=== PATIENT | male | born 1960 | race Caucasian/White ===

== ENCOUNTER 2023-05-03 05:24 | Inpatient (IN) | payer MEDICARE, SELFPAY ==
[2023-05-03] VITALS (13 sets, daily range): BP systolic 143–177; BP diastolic 82–101; PULSE 82–106; RESP 14–20; TEMP 36.3–36.7; O2SAT 95–100; BMI 45.8
--- NOTE | ~2023-05-03 | CT_ITS ---
EXAMINATION: CT brain wo con DATE: 05/03/2023 06:49 INDICATION: Head injury. TECHNIQUE: Computed tomography (CT) of the head was performed without intravenous contrast. The mA wa s adjusted according to patient size. Iterative reconstruction technique was employed. The dose-lengt h product was 832.33 mGy-cm. COMPARISON: None FINDINGS: There is low attenuation involving the left frontotemporal parietal region, left insula, an d left thalamus with calcifications and volume loss. There are changes of left craniotomy. There is n o intracranial hemorrhage or acute infarction. There is ex vacuo dilatation of left lateral ventricle . The orbits are normal. There is mild mucosal thickening in the ethmoid sinuses. The mastoid air shirin ls are normal. IMPRESSION: 1. Low attenuation, calcifications, and volumes loss involving the left frontotemporal parietal regio n, left insula, and left thalamus, consistent with chronic encephalomalacia. Some component of neopla sm in this volume cannot be excluded. Correlate with outside imaging. Reviewed, dictated and finalized at location E. IMPRESSION: 1. Low attenuation, calcifications, and volumes loss involving the left frontot emporal parietal region, left insula, and left thalamus, consistent with chroni c encephalomalacia. Some component of neoplasm in this volume cannot be exclude d. Correlate with outside imaging.
--- NOTE | ~2023-05-03 | XR_ITS ---
EXAMINATION: XR hip RT 2V w AP pelvis DATE: 05/03/2023 06:58 INDICATION: Right hip injury. Fall. TECHNIQUE: An anteroposterior view of the pelvis and 2 views of right hip were obtained. COMPARISON: None. FINDINGS: There is a subcapital fracture of proximal right femur. The distal fracture fragment demons trates 2.7 cm shortening and anterior displacement. The hip joint spaces are normal. IMPRESSION: 1. Subcapital fracture of right femoral neck. Reviewed, dictated and finalized at location E.
--- NOTE | ~2023-05-03 | XR_ITS ---
EXAMINATION: XR tibia fibula RT 2V DATE: 05/03/2023 06:58 INDICATION: Right lower leg injury. TECHNIQUE: 2 views of right tibia and fibula on 4 radiographs were obtained. COMPARISON: None. FINDINGS: Bone alignment is normal. No fracture. There is mild osteoarthritis of medial compartment o f the knee. There is soft tissue swelling of the lower leg. IMPRESSION: 1. Mild right knee osteoarthritis. Reviewed, dictated and finalized at location E.
--- NOTE | ~2023-05-03 | XR_ITS ---
EXAMINATION: XR ankle RT 2V DATE: 05/03/2023 06:58 INDICATION: Right ankle injury. Fall. TECHNIQUE: 2 views of right ankle were obtained. COMPARISON: None. FINDINGS: Bone alignment is normal. No fracture. Joint spaces are normal. There is an enthesophyte at plantar aspect of calcaneal tuberosity. There is foot and lower leg soft tissue swelling. IMPRESSION: 1. No fracture. Reviewed, dictated and finalized at location E. IMPRESSION: 1. No fracture.
--- NOTE | ~2023-05-03 | CT_ITS ---
EXAMINATION: CT cervical spine wo con DATE: 05/03/2023 06:53 INDICATION: Head injury. TECHNIQUE: Computed tomography (CT) of the cervical spine was performed without intravenous contrast. Automated exposure control and iterative reconstruction technique were employed. The dose-length pro duct was 594.56 mGy-cm. COMPARISON: None FINDINGS: There is kyphosis of cervical spine. Vertebral body heights are normal. There is mildly dec reased disc height at C2-C3, severely decreased disc height from C3-C4 through C6-C7, and mildly decr eased disc height at C7-T1. The following disc levels are specifically discussed: C2-C3: There is mild right and moderate left uncovertebral joint osteoarthritis. There is severe bila teral facet joint osteoarthritis. There is mild left neural foraminal stenosis. There is no central c anal stenosis. C3-C4: There is severe bilateral uncovertebral joint osteoarthritis. There is severe left facet joint osteoarthritis. There is mild right and moderate left neural foraminal stenosis. There is mild centr al canal stenosis. C4-C5: There is severe bilateral uncovertebral joint osteoarthritis. There is moderate bilateral face t joint osteoarthritis. There is moderate bilateral neural foraminal stenosis. There is mild central canal stenosis. C5-C6: There is severe bilateral uncovertebral joint osteoarthritis. There is mild bilateral facet blayne int osteoarthritis. There is mild right and moderate left neural foraminal stenosis. There is no cent ral canal stenosis. C6-C7: There is severe bilateral uncovertebral joint osteoarthritis. There is moderate right and maria t re left facet joint osteoarthritis. There is moderate bilateral neural foraminal stenosis. There is m ild central canal stenosis. C7-T1: There is mild right uncovertebral joint osteoarthritis. There is severe bilateral facet joint osteoarthritis. There is no neural foraminal stenosis. There is no central canal stenosis. IMPRESSION: 1. No fracture. 2. Severe cervical spondylosis. Reviewed, dictated and finalized at location E.
--- NOTE | ~2023-05-03 | XR_ITS ---
EXAMINATION: XR chest 1V portable DATE: 05/03/2023 08:02 INDICATION: Chest pain. Fall. Preop. TECHNIQUE: A single frontal view of the chest was obtained. COMPARISON: None. FINDINGS: There is mild atelectasis in left lower lung zone. No pleural effusion or pneumothorax. The heart size is normal. IMPRESSION: 1. Mild atelectasis in left lower lung zone. Reviewed, dictated and finalized at location E.
--- NOTE | ~2023-05-03 | XR_ITS ---
EXAMINATION: XR hip RT min 2V DATE: 05/05/2023 11:37 INDICATION: Right femoral neck fracture post bipolar arthroplasty placement. TECHNIQUE: Anteroposterior and cross-table lateral views of the right hip were obtained. COMPARISON: None. FINDINGS: Interval resection of the fractured right femoral head neck and placement of a bipolar type right hip hemiarthroplasty. Alignment appears near-anatomic. No new fractures identified. Expected soft tissue gas at the operative bed. IMPRESSION: 1. Expected appearance post placement of a bipolar type right hip hemiarthroplasty, negative for post operative purposes. Reviewed, dictated and finalized at location A. N LOADER IMPRESSION: 1. Expected appearance post placement of a bipolar type right hip hemiarthropla sty, negative for postoperative purposes.
--- NOTE | ~2023-05-03 | XR_ITS ---
EXAMINATION: XR femur RT min 2V DATE: 05/03/2023 06:58 INDICATION: Right thigh injury. Fall. TECHNIQUE: 3 views of right femur on 4 radiographs were obtained. COMPARISON: None. FINDINGS: There is a subcapital fracture of right femoral neck. The distal fracture fragment demonstr ates 2.6 cm shortening and anterior displacement. Joint spaces are normal. No knee joint effusion. IMPRESSION: 1. Subcapital fracture of right femoral neck. Reviewed, dictated and finalized at location E.
--- NOTE | 2023-05-03 07:27 | ED.FALL ---
HPI - Fall General Chief Complaint: Fall Stated Complaint: fall Time Seen by Provider: 05/03/23 05:47 Source: patient and EMS Mode of arrival: EMS History of Present Illness HPI Narrative: Ground fall, fell on the right side, struck head on the ground, no loss of consciousness complaining of right hip pain. Related Data Home Medications Medication Instructions Recorded Confirmed acetaminophen 650 mg 650 mg PO Q6H PRN Pain (Scale 05/03/23 05/03/23 tablet,extended release Score 1-3) amlodipine 10 mg tablet 10 mg PO DAILY 05/03/23 05/03/23 apixaban 2.5 mg tablet (Eliquis) 2.5 mg PO BID 05/03/23 05/03/23 bisacodyl 5 mg tablet 10 mg PO DAILY 05/03/23 05/03/23 calcium carbonate 550 mg chewable 1,100 mg PO DAILY 05/03/23 05/03/23 tablet clonidine HCl 0.1 mg tablet 0.1 mg PO BID 05/03/23 05/03/23 dexamethasone 6 mg tablet 6 mg PO DAILY 05/03/23 05/03/23 duloxetine 30 mg capsule,delayed 30 mg PO DAILY 05/03/23 05/03/23 release famotidine 20 mg tablet 20 mg PO DAILY 05/03/23 05/03/23 fluticasone propionate 50 50 mcg intranasal BID 05/03/23 05/03/23 mcg/actuation nasal spray,suspension gabapentin 300 mg capsule 300 mg PO BID 05/03/23 05/03/23 hydralazine 50 mg tablet 50 mg PO TID 05/03/23 05/03/23 insulin glargine 100 unit/mL (3 35 unit subcut DAILY 05/03/23 05/03/23 mL) subcutaneous pen (Lantus Solostar U-100 Insulin) insulin lispro 100 unit/mL 15 unit subcut TID 05/03/23 05/03/23 subcutaneous pen (Humalog KwikPen (U-100) Insulin) lanolin alcohols-mineral 1 applic topical BID 05/03/23 05/03/23 oil-w.petrolatum-ceresin topical cream (Eucerin topical cream) levetiracetam 1,000 mg tablet 2,000 mg PO BID 05/03/23 05/03/23 magnesium oxide 400 mg PO DAILY 05/03/23 05/03/23 nystatin 100,000 unit/gram topical 1 applic topical BID 05/03/23 05/03/23 powder oxcarbazepine 300 mg tablet 300 mg PO BID 05/03/23 05/03/23 polyethylene glycol 3350 17 gram 17 g PO DAILY 05/03/23 05/03/23 oral powder packet (Miralax) potassium chloride 20 mEq 10 meq PO DAILY 05/03/23 05/03/23 tablet,extended release(part/cryst) rizatriptan 10 mg tablet 10 mg PO PRN PRN Migraine Headache 05/03/23 05/03/23 sennosides 8.6 mg capsule (senna) 8.6 mg PO BID PRN Constipation 05/03/23 05/03/23 Allergies Allergy/AdvReac Type Severity Reaction Status Date / Time No Known Allergies Allergy Verified 05/03/23 05:30 Review of Systems Review of Systems: All systems reviewed & are unremarkable except as noted in HPI and below PMFSH Social History Social History Smoking status: Unknown if ever smoked Exam Narrative: General appearance: Well-developed, well-nourished Skin: Normal color Head: Normocephalic, nontraumatic Eyes: Clear conjunctiva ENT: Oropharynx normal, ears normal, nose normal Neck: Supple, nontender Chest and respiratory: Airway patent, no respiratory distress, no accessory muscle use Heart: Regular rate/rhythm Abdomen: Soft, nontender, no organomegaly, quiet bowel sounds Vascular: Normal peripheral pulses, normal capillary refill. Musculoskeletal: Severe limited range of motion of the right hip with diffuse tenderness and shortening of the right leg Neurologic: Expressive aphasia Course Consultations Consultation #1: Dr. Preciado Date: 05/03/23 Time: 08:33 Vital Signs Vital signs: Vital Signs Temperature 36.6 C 05/03/23 05:25 Pulse Rate 82 05/03/23 05:25 Respiratory Rate 14 05/03/23 05:25 Blood Pressure 143/87 H 05/03/23 05:25 Pulse Oximetry 96 05/03/23 05:25 Oxygen Delivery Room Air 05/03/23 05:25 Temperature 36.3 C L 05/03/23 09:40 Pul
--- NOTE | 2023-05-03 07:29 | ECG_ITS ---
Measurements Intervals [place] Rate: 87 P: 55 ME: 181 QRS: 6 QRSD: 100 T: 9 QT: 386 QTc: 466 Interpretive Statements SINUS RHYTHM NONSPECIFIC T-WAVE ABNORMALITY- INF/HIGH LAT LEADS BASELINE ARTIFACT- I, II, III, AVL, AVF, V1-V5 BORDERLINE ECG NO PREVIOUS ECG AVAILABLE FOR COMPARISON Electronically Signed On 05-03-2023 7:55:41 CDT by Sid Tabor D.O.
[2023-05-03 07:40] LABS: Basophils Absolute Auto 0.1 K/mm3 (0.0-0.1); Basophils Percent Auto 0.4 % (0.2-1.2); Eosinophils Percent Auto 0.2 % (0-4.4); Hemoglobin 11.7 g/dL (14.0-18.0); Immature Granulocyte Absolute 0.25 K/mm3 (0.00-0.031); Lymphocytes Absolute Auto 1.35 K/mm3 (0.9-3.2); Lymphocytes Percent Auto 10.8 % (18.3-44.2); Mean Corpuscular HGB Conc 32.5 g/dl (32-36); Mean Corpuscular Volume 98.4 fl (80-100); Mean Platelet Volume 8.5 fl (7.4-10.4); Monocytes Absolute Auto 1.1 K/mm3 (0.1-0.6); Monocytes Percent Auto 8.5 % (2.6-8.5); Neutrophils Absolute Auto 9.7 K/mm3 (1.3-6.7); Neutrophils Percent Auto 78.1 % (45.5-73.1); Platelet Count Result 208 k/mm3 (150-375); Red Blood Count 3.66 M/mm3 (4.6-6.20); Red Cell Distribution Width 12.9 % (11.5-14.5); White Blood Count 12.5 K/mm3 (4.5-10.0)
[2023-05-03 07:51] LABS: Alanine Aminotransferase 32 U/L (6-50); Albumin Level 3.8 g/dL (3.5-5.1); Alkaline Phosphatase 91 U/L (38-126); Anion Gap 7 mmol/L (8-16); Aspartate Amino Transferase 24 U/L (17-59); Bilirubin,Total 0.6 mg/dL (0.2-1.3); Blood Urea Nitrogen 31 mg/dL (9-20); Calcium 9.2 mg/dL (8.4-10.2); Carbon Dioxide 28 mmol/L (22-30); Chloride 100 mmol/L (98-107); Estimated CRCL calculation 57 ml/min; Estimated Glomerular Filt Rate 44; Glucose 131 mg/dL (65-110); INR 0.9; Potassium 3.8 mmol/L (3.4-5.0); Prothrombin Time 12.7 Seconds (11.1-14.7); Sodium 135 mmol/L (137-145)
[2023-05-03] MEDS: ONDANSETRON INJ 4 MG/2 ML VIAL IV PUSH ×2 (08:11→20:08)
[2023-05-03] MEDS: HYDROmorphone HCL INJ (*CRX) 1 MG/ML SYR 0.5 MG IV PUSH ×4 (08:12→20:08)
--- NOTE | 2023-05-03 09:50 | ADMGEN ---
This patient, Lupillo Talley, was admitted to [facility] Surg Room 325-02. Patient/family oriented to hospital policies and general routines including ID bracelet, bed and alarms, visiting hours, pain management, procedures, bathroom and other care routines, personal items, smoking policy, room service/diet, and visiting hours. Information on how to activate the Rapid Response Team has been discussed. Patient/Family are encouraged to report perceived risks to care and to ask questions if they do not understand what they are told or what they should do.
--- NOTE | 2023-05-03 10:06 | PC.NURSE ---
PT'S DAUGHTER CALLED AND RECEIVED UPDATE ON FATHER.
--- NOTE | 2023-05-03 12:07 | PM.IMHP ---
H&P: HPI History of Present Illness Date/Time: 05/03/23 12:07 Chief Complaint: right hip pain Narrative: This is a 62-year-old male with a significant past medical history of CVA with history of falls, type 2 diabetic, COPD, hypertension, hyperlipidemia, GERD, sleep apnea, general anxiety, constipation who presents to the hospital this morning after sustaining a ground level fall at a [place] where he lives. Patient states that he was getting up from using the toilet with the assistance of an aide when he fell backwards hitting his head and landing on the right hip. He did not lose consciousness however sustained a laceration to the right forehead. Patient started reporting right hip pain after the fall. [place] called EMS and EMS transferred patient to the hospital. Workup in the hospital includes CT scan of the brain without contrast which shown low attenuation, calcifications and volume loss involving the left frontotemporal parietal region, left insula, and left thalamus, consistent with chronic encephalomalacia. He also had a C-spine CT without contrast which did not show any fracture, severe cervical spondylosis was seen. He also had x-rays of his ankle and his tib-fib on the right which did not show any acute fracture. He had x-rays of his femur, hip, and pelvis which revealed a subcapital fracture of the right femoral neck. He also had a chest x-ray done which showed mild atelectasis in left lower lung zone, no pleural effusion or pneumothorax seen. Labs today revealed a white blood cell count of 12.5, RBC 3.66, hemoglobin 11.7, hematocrit 36, sodium 135, potassium 3.8, chloride 100, BUN 31, creatinine 1.6, EGFR 44, blood sugars ranging 121-131, liver enzymes normal. EKG was also performed which showed normal sinus rhythm with a rate of 87. Orthopedic surgery was consulted. Patient was placed on an NPO status pending evaluation from Orthopedic Services. Dilaudid 0.5 mg IV push q.4 hours p.r.n. pain ordered. On examination patient is alert oriented x4, he has expressive aphasia from his CVA, he has hemiplegia on the right side with contractures to his right hand and arm. He is currently on 2 L nasal cannula with oxygen saturation 95-100%, blood pressure is ranging 155/82 to 177/90, he is afebrile. Patient reports 7/10 pain in the right hip. He has no other complaints today. He is being admitted to medical/surgical floor for management of his hip fracture. Review of Systems Review of Systems: All systems reviewed & are unremarkable except as noted in HPI and below Constitutional: Constitutional: Reports as per HPI, Reports no additional constitutional complaints, Denies body ache(s) and Denies chills Eyes: Eyes: Reports as per HPI and Reports no additional eye complaints ENT: Reports system reviewed and no additional complaints, except as documented, Reports as per HPI and Reports dysphagia Cardiovascular: Cardiovascular: Reports as per HPI, Reports no additional cardiovascular complaints, Denies chest pain, Reports pedal edema, Reports leg edema and Denies palpitations Respiratory: Respiratory: Reports as per HPI, Reports no additional respiratory complaints, Denies cough and Denies dyspnea Gastrointestinal: Gastrointestinal: Reports as per HPI, Reports no additional gastrointestinal complaints, Denies abdominal pain, Reports constipation, Denies diarrhea, Denies nausea and Denies vomiting Genitourinary: Genitourinary: Reports no additional male genitourinary complaints, Reports as per HPI, Denies hematuria and Denies dysuria Musculoskeletal: Musculoskeletal: Reports no additional musculoskeletal complaints, Reports as per HPI and Reports arthralgias Integumentary/Breasts: Skin/Breast: Reports system reviewed and no additional complaints, except as docu and Reports as per HPI Comments: laceration on forhead, multiple bruises noted to bilateral arms, patient is on blood thinner Neurologic: Reports system review
[2023-05-03 12:08] LABS: Glucose Point of Care 121 mg/dl (65-105)
[2023-05-03] MEDS: SODIUM CHLORIDE 0.9% IV 1,000 ML 125 ML IV CONT ×2 (12:11→21:21)
--- NOTE | 2023-05-03 14:56 | PM.CNOR ---
Assessment and Plan Assessment and plan (1) Closed fracture of right hip: Qualifiers: Encounter type: initial encounter Qualified Code(s): S72.001A - Fracture of unspecified part of neck of right femur, initial encounter for closed fracture Code(s): S72.001A - Fracture of unspecified part of neck of right femur, initial encounter for closed fracture Status: Acute Plan Displaced right hip femoral neck fracture. Will benefit from bipolar hemiarthroplasty. He lives in assisted living. He is a minimal ambulator; primarily transfers. Increased risk due to multiple medical comorbidities including diabetes, morbid obesity, hemiparesis affecting the right side, COPD, obstructive sleep apnea. He takes Eliquis twice daily. Will need to wait 48 hours prior to surgery. Tentative plan for bipolar hemiarthroplasty Saturday at 08:00. Risks, benefits, and alternatives discussed with the patient and his sister. History of Present Illness HPI Consult date: 05/03/23 Chief complaint: Right Hip Fracture Narrative: Patient complains of acute right hip pain. Fell from standing height. Lives in assisted living. History of CVA with right hemiparesis. No previous hip pain. No numbness, tingling, or other associated symptoms. Review of Systems Review of Systems: Denies loss of consciousness. All systems reviewed & are unremarkable except as noted in HPI and below PMFSH Past Medical History Medical History Aphasia Constipation COPD (chronic obstructive pulmonary disease) CVA (cerebral vascular accident) Generalized anxiety disorder GERD (gastroesophageal reflux disease) Hemiplegia History of falling Hyperlipidemia Hypertension Obstructive sleep apnea Type II diabetes mellitus Social History Social History Smoking status: Never smoker Alcohol intake: current Drinks per week: 1 Substance use: never Lack of Transportation: No Lack of Food: Never True Current Housing: I Have Housing Concerned About Future Housing: No Difficulty Paying Gas/Electric Bills: No Difficulty Paying for Meds: No Currently Unemployed: YES Education: Don't Know Living arrangements: retirement Occupation/Education: retired Gender identity (if verbalized by the patient): Male Sexual Orientation (if Verbalized by the Patient): Straight or Heterosexual Spiritual care concerns: No Meds Home Medications and Allergies Home Medications Medication Instructions Recorded Confirmed Type acetaminophen 650 mg 650 mg PO Q6H PRN Pain (Scale 05/03/23 05/03/23 History tablet,extended release Score 1-3) amlodipine 10 mg tablet 10 mg PO DAILY 05/03/23 05/03/23 History apixaban 2.5 mg tablet (Eliquis) 2.5 mg PO BID 05/03/23 05/03/23 History bisacodyl 5 mg tablet 10 mg PO DAILY 05/03/23 05/03/23 History calcium carbonate 550 mg chewable 1,100 mg PO DAILY 05/03/23 05/03/23 History tablet clonidine HCl 0.1 mg tablet 0.1 mg PO BID 05/03/23 05/03/23 History dexamethasone 6 mg tablet 6 mg PO DAILY 05/03/23 05/03/23 History duloxetine 30 mg capsule,delayed 30 mg PO DAILY 05/03/23 05/03/23 History release famotidine 20 mg tablet 20 mg PO DAILY 05/03/23 05/03/23 History fluticasone propionate 50 50 mcg intranasal BID 05/03/23 05/03/23 History mcg/actuation nasal spray,suspension furosemide 20 mg tablet 20 mg PO DAILY 05/03/23 05/03/23 History gabapentin 300 mg capsule 300 mg PO BID 05/03/23 05/03/23 History hydralazine 50 mg tablet 50 mg PO TID 05/03/23 05/03/23 History insulin glargine 100 unit/mL (3 35 unit subcut DAILY 05/03/23 05/03/23 History mL) subcutaneous pen (Lantus Solostar U-100 Insulin) insulin lispro 100 unit/mL 15 unit subcut TID 05/03/23 05/03/23 History subcutaneous pen (Humalog KwikPen (U-100) Insulin) lactulose 10 gram/15 mL oral 15 ml PO BID PRN Co
[2023-05-03] MEDS: DULoxetine HCL 30 MG CAPSULE.DR PO (15:06)
[2023-05-03] MEDS: hydrALAZINE HCL 50 MG TABLET PO (15:06)
[2023-05-03] MEDS: DEXAMETHASONE 2 MG TABLET 6 MG PO (15:06)
[2023-05-03] MEDS: FAMOTIDINE 20 MG TABLET PO (15:07)
[2023-05-03] MEDS: FUROSEMIDE 20 MG TABLET PO (15:07)
[2023-05-03] MEDS: polyethylene glycoL 3350 17 GM POWD.PACK PO (15:07)
[2023-05-03] MEDS: MAGNESIUM OXIDE 400 MG TABLET PO (15:07)
[2023-05-03] MEDS: levETIRAcetam 500 MG TABLET 2000 MG PO ×2 (15:07→20:07)
[2023-05-03] MEDS: amLODIPine BESYLATE 5 MG TABLET 10 MG PO (15:07)
[2023-05-03] MEDS: OXcarbazepine 300 MG TABLET PO ×2 (15:12→20:07)
[2023-05-03] MEDS: GABAPENTIN 300 MG CAPSULE PO (15:42)
[2023-05-03] MEDS: FLUTICASONE PROPIONATE 0.05% NA SPR 16 GM BTL (*BKC) 1 SPRAY NASAL (15:42)
[2023-05-03] MEDS: TOLNAFTATE 1% POWDER 45 GM BTL 1 APPLIC TOPICAL (16:56)
[2023-05-03 17:01] LABS: Glucose Point of Care 127 mg/dl (65-105)
--- NOTE | 2023-05-03 17:08 | PC.NURSE ---
Glucose 127 and not eating much Ginny Antunez notified of holding scheduled insulin novolog 15 units
[2023-05-03 17:14] LABS: Glucose Point of Care 145 mg/dl (65-105)
[2023-05-03] MEDS: ACETAMINOPHEN 325 MG TABLET 650 MG PO (20:07)
[2023-05-03] MEDS: cloNIDine HCL 0.1 MG TABLET PO (20:07)
[2023-05-03 20:58] LABS: Glucose Point of Care 216 mg/dl (65-105)
[2023-05-03] MEDS: HYDROcodone/acetaminophen (*CRX) 5-325 MG TABLET 1 TAB PO (22:06)
[2023-05-04] MEDS: HYDROcodone/acetaminophen (*CRX) 5-325 MG TABLET 1 TAB PO ×2 (02:36→06:16)
[2023-05-04] MEDS: SODIUM CHLORIDE 0.9% IV 1,000 ML 125 ML IV CONT (05:25)
[2023-05-04 05:51] LABS: Hematocrit 32.4 % (42.0-52.0); Hemoglobin 10.3 g/dL (14.0-18.0); Mean Corpuscular HGB Conc 31.8 g/dl (32-36); Mean Corpuscular Hemoglobin 32.5 pg (26-34); Mean Corpuscular Volume 102.2 fl (80-100); Mean Platelet Volume 8.6 fl (7.4-10.4); Platelet Count Result 163 k/mm3 (150-375); Red Blood Count 3.17 M/mm3 (4.6-6.20); White Blood Count 10.6 K/mm3 (4.5-10.0)
[2023-05-04 06:00] VITALS: BP 146/76; PULSE 91; RESP 18; TEMP 36.6; O2SAT 97
[2023-05-04 06:00] LABS: Alanine Aminotransferase 29 U/L (6-50); Albumin Level 3.4 g/dL (3.5-5.1); Alkaline Phosphatase 72 U/L (38-126); Anion Gap 0 mmol/L (8-16); Aspartate Amino Transferase 29 U/L (17-59); Bilirubin,Total 0.6 mg/dL (0.2-1.3); Blood Urea Nitrogen 27 mg/dL (9-20); Calcium 8.7 mg/dL (8.4-10.2); Carbon Dioxide 32 mmol/L (22-30); Chloride 102 mmol/L (98-107); Estimated CRCL calculation 57 ml/min; Estimated Glomerular Filt Rate 47; Glucose 151 mg/dL (65-110); Potassium 4.4 mmol/L (3.4-5.0); Sodium 134 mmol/L (137-145)
--- NOTE | 2023-05-04 07:36 | WPDANESEPP ---
Anes - Eval Pre Procedure Procedure: Operation Date: 05/05/23 08:00 Proposed Procedures p Right Bipolar Hemiarthroplasty Date/Time: 05/04/23 07:36 Surgeon: Ilana Preop Diagnosis: displaced right femoral neck fracture Pre Op Diagnosis: Right Hip Fracture Patient Data Age: 62 Gender: M Height: 1.68 m Weight: 128.7 kg Last Vital Signs Temp 97.9 F 05/04/23 06:00 Pulse 91 05/04/23 06:00 Resp 18 05/04/23 06:00 BP 146/76 H 05/04/23 06:00 Pulse Ox 97 05/04/23 06:00 O2 Del Method Nasal Cannula 05/03/23 20:42 O2 Flow Rate 2 05/03/23 20:42 Allergies Allergy/AdvReac Type Severity Reaction Status Date / Time No Known Allergies Allergy Verified 05/03/23 05:30 Home Medications Medication Instructions Recorded Confirmed Type acetaminophen 650 mg 650 mg PO Q6H PRN Pain (Scale 05/03/23 05/03/23 History tablet,extended release Score 1-3) amlodipine 10 mg tablet 10 mg PO DAILY 05/03/23 05/03/23 History apixaban 2.5 mg tablet (Eliquis) 2.5 mg PO BID 05/03/23 05/03/23 History bisacodyl 5 mg tablet 10 mg PO DAILY 05/03/23 05/03/23 History calcium carbonate 550 mg chewable 1,100 mg PO DAILY 05/03/23 05/03/23 History tablet clonidine HCl 0.1 mg tablet 0.1 mg PO BID 05/03/23 05/03/23 History dexamethasone 6 mg tablet 6 mg PO DAILY 05/03/23 05/03/23 History duloxetine 30 mg capsule,delayed 30 mg PO DAILY 05/03/23 05/03/23 History release famotidine 20 mg tablet 20 mg PO DAILY 05/03/23 05/03/23 History fluticasone propionate 50 50 mcg intranasal BID 05/03/23 05/03/23 History mcg/actuation nasal spray,suspension furosemide 20 mg tablet 20 mg PO DAILY 05/03/23 05/03/23 History gabapentin 300 mg capsule 300 mg PO BID 05/03/23 05/03/23 History hydralazine 50 mg tablet 50 mg PO TID 05/03/23 05/03/23 History insulin glargine 100 unit/mL (3 35 unit subcut DAILY 05/03/23 05/03/23 History mL) subcutaneous pen (Lantus Solostar U-100 Insulin) insulin lispro 100 unit/mL 15 unit subcut TID 05/03/23 05/03/23 History subcutaneous pen (Humalog KwikPen (U-100) Insulin) lactulose 10 gram/15 mL oral 15 ml PO BID PRN Constipation 05/03/23 05/03/23 History solution lanolin alcohols-mineral 1 applic topical BID 05/03/23 05/03/23 History oil-w.petrolatum-ceresin topical cream (Eucerin topical cream) levetiracetam 1,000 mg tablet 2,000 mg PO BID 05/03/23 05/03/23 History magnesium oxide 400 mg PO DAILY 05/03/23 05/03/23 History nystatin 100,000 unit/gram topical 1 applic topical BID 05/03/23 05/03/23 History powder oxcarbazepine 300 mg tablet 300 mg PO BID 05/03/23 05/03/23 History polyethylene glycol 3350 17 gram 17 g PO DAILY 05/03/23 05/03/23 History oral powder packet (Miralax) potassium chloride 20 mEq 10 meq PO DAILY 05/03/23 05/03/23 History tablet,extended release(part/cryst) rizatriptan 10 mg tablet 10 mg PO PRN PRN Migraine Headache 05/03/23 05/03/23 History sennosides 8.6 mg capsule (senna) 8.6 mg PO BID PRN Constipation 05/03/23 05/03/23 History vitamin B complex (B 1 tablet PO DAILY 05/03/23 05/03/23 History Complex-Vitamin B12 tablet) Laboratory Tests 05/03/23 05/03/23 05/03/23 07:33 12:02 16:58 WBC 12.5 H K/mm3 (4.5-10.0) RBC 3.66 L M/mm3 (4.6-6.20) Hgb 11.7 L g/dL (14.0-18.0) Hct 36.0 L % (42.0-52.0) MCV 98.4 fl (80-100) MCH 32.0 pg (26-34) MCHC 32.5 g/dl (32-36) RDW 12.9 % (11.5-14.5) Plt Count 208 k/mm3 (150-375) MPV 8.5 fl (7.4-10.4) Immature Gran % (Auto) 2.0 H % (0-0.5) Neut % (Auto) 78.1 H % (45.5-73.1) Lymph % (Auto) 10.8 L % (18.3-44.2) [place] % (Auto) 8.5 % (2.6-8.5) Eos % (Auto) 0.2 % (0-4.4) Baso % (Auto) 0.4 % (0.2-1.2) Lymph # (Auto) 1.35 K/mm3 (0.9-3.2) [place] # (Auto) 1.1 H K/mm3 (0.1-0.6) Eos # (Auto) 0.0 K/mm
--- NOTE | 2023-05-04 07:47 | P.PNIM_ITS ---
Progress Note: A&P Assessment and Plan (1) Closed fracture of right hip: Qualifiers: Encounter type: initial encounter Qualified Code(s): S72.001A - Fracture of unspecified part of neck of right femur, initial encounter for closed fracture Code(s): S72.001A - Fracture of unspecified part of neck of right femur, initial encounter for closed fracture Status: Acute Assessment and Plan: 05/03/23: * Status post ground level fall, patient has hemiplegia, lives at [place] * X-rays of the ankle and tib-fib do not show any fracture, x-ray right femur and hip/pelvis x-ray shown subcapital fracture of the right femoral neck * Orthopedics consulted * Patient reports 7/10 pain to the right * Continue with dilaudid 0.5 mg IV push q.4 hour for pain * Will remain NPO until after orthopedic consult 05/04/23: * Orthopedics plans to take patient to the OR tomorrow morning due to the use of Eliquis, patient will need to remain off Eliquis for at least 48 hours. * Continue diet today, NPO after MN for anticipated surgery tomorrow. * One time dose of Toradol 30 mg ordered, increased [place] to 1-2 tab every 4 hour for 1st line pain medication, adjusted dilaudid 0.5 mg to every 3 hours p.r.n. for second-line pain medication * Bedrest orders * Continue to trend labs (2) History of falling: Code(s): Z91.81 - History of falling Status: Acute Assessment and Plan: 05/03/23: * Patient has hemiplegia to the right side post CVA from the past, lives at [place] * See above 05/04/23: * Will require therapy after surgury, no changes at this time. (3) CVA (cerebral vascular accident): Code(s): I63.9 - Cerebral infarction, unspecified Status: Acute Assessment and Plan: 05/03/23: * Hemiplegia to the right side post CVA, lives at [place] * Expressive aphasia noted * Eliquis 2.5 mg tablet on hold for Ortho evaluation and treatment/possible surgery * Continued Keppra 2000 mg b.i.d.,Trileptal 300 mg b.i.d., Neurontin 300 mg p.o. b.i.d. 11/4/23: * no change to current treatment plan (4) Hemiplegia: Code(s): G81.90 - Hemiplegia, unspecified affecting unspecified side Status: Acute Assessment and Plan: 05/03/23: * Hemiplegia to the right side post CVA * Contractures noted to right hand and arm 05/04/23: * no changes at this time * patient on bedrest (5) Hypertension: Code(s): I10 - Essential (primary) hypertension Status: Acute Assessment and Plan: 05/03/23: * Blood pressures ranging 155/82 to 177/90 * Continue home medication amlodipine 10 mg p.o. daily, continue hydralazine 50 mg p.o. t.i.d. 05/04/23: * B/P ranging 146/76-162/101 * Will continue to monitor, patient back on his home medication (6) Obstructive sleep apnea: Code(s): G47.33 - Obstructive sleep apnea (adult) (pediatric) Status: Acute Assessment and Plan: 05/03/23: * Noted (7) COPD (chronic obstructive pulmonary disease): Code(s): J44.9 - Chronic obstructive pulmonary disease, unspecified Status: Acute Assessment and Plan: 05/03/23: * Patient currently on 2 L nasal cannula, he does not wear oxygen at home * Lungs clear to auscultation 05/04/23: * Patient currently on room air (8) Type II diabetes mellitus: Code(s): E11.9 - Type 2 diabetes mellitus without complications Status: Acute Assessment and Plan: 05/03/23: * Accu-Cheks AC and HS * Continue home medication Lantus 35 uni
--- NOTE | 2023-05-04 07:47 | PM.IMPN ---
Progress Note: A&P Assessment and Plan (1) Closed fracture of right hip: Qualifiers: Encounter type: initial encounter Qualified Code(s): S72.001A - Fracture of unspecified part of neck of right femur, initial encounter for closed fracture Code(s): S72.001A - Fracture of unspecified part of neck of right femur, initial encounter for closed fracture Status: Acute Assessment and Plan: 05/03/23: Status post ground level fall, patient has hemiplegia, lives at [place] X-rays of the ankle and tib-fib do not show any fracture, x-ray right femur and hip/pelvis x-ray shown subcapital fracture of the right femoral neck Orthopedics consulted Patient reports 7/10 pain to the right Continue with dilaudid 0.5 mg IV push q.4 hour for pain Will remain NPO until after orthopedic consult 05/04/23: Orthopedics plans to take patient to the OR tomorrow morning due to the use of Eliquis, patient will need to remain off Eliquis for at least 48 hours. Continue diet today, NPO after MN for anticipated surgery tomorrow. One time dose of Toradol 30 mg ordered, increased [place] to 1-2 tab every 4 hour for 1st line pain medication, adjusted dilaudid 0.5 mg to every 3 hours p.r.n. for second-line pain medication Bedrest orders Continue to trend labs (2) History of falling: Code(s): Z91.81 - History of falling Status: Acute Assessment and Plan: 05/03/23: Patient has hemiplegia to the right side post CVA from the past, lives at [place] See above 05/04/23: Will require therapy after surgury, no changes at this time. (3) CVA (cerebral vascular accident): Code(s): I63.9 - Cerebral infarction, unspecified Status: Acute Assessment and Plan: 05/03/23: Hemiplegia to the right side post CVA, lives at [place] Expressive aphasia noted Eliquis 2.5 mg tablet on hold for Ortho evaluation and treatment/possible surgery Continued Keppra 2000 mg b.i.d.,Trileptal 300 mg b.i.d., Neurontin 300 mg p.o. b.i.d. 05/04/23: no change to current treatment plan (4) Hemiplegia: Code(s): G81.90 - Hemiplegia, unspecified affecting unspecified side Status: Acute Assessment and Plan: 05/03/23: Hemiplegia to the right side post CVA Contractures noted to right hand and arm 05/04/23: no changes at this time patient on bedrest (5) Hypertension: Code(s): I10 - Essential (primary) hypertension Status: Acute Assessment and Plan: 05/03/23: Blood pressures ranging 155/82 to 177/90 Continue home medication amlodipine 10 mg p.o. daily, continue hydralazine 50 mg p.o. t.i.d. 05/04/23: B/P ranging 146/76-162/101 Will continue to monitor, patient back on his home medication (6) Obstructive sleep apnea: Code(s): G47.33 - Obstructive sleep apnea (adult) (pediatric) Status: Acute Assessment and Plan: 05/03/23: Noted (7) COPD (chronic obstructive pulmonary disease): Code(s): J44.9 - Chronic obstructive pulmonary disease, unspecified Status: Acute Assessment and Plan: 05/03/23: Patient currently on 2 L nasal cannula, he does not wear oxygen at home Lungs clear to auscultation 05/04/23: Patient currently on room air (8) Type II diabetes mellitus: Code(s): E11.9 - Type 2 diabetes mellitus without complications Status: Acute Assessment and Plan: 05/03/23: Accu-Cheks AC and HS Continue home medication Lantus 35 units Continue home medication Lispro 15 units subQ t.i.d. with meals Hypoglycemia medication ordered as needed 05/04/23: BG ranging 151-216 no change to current treatment plan (9) GERD (gastroesophageal reflux disease): Code(s): K21.9 - Gastro-esophageal reflux disease without esophagitis Status: Acute Assessment and Plan: 05/03/23: Continue Pepcid 20 mg p.o. daily 05/04/23: no change to current treatment plan (10) Constipation: Co
[2023-05-04 08:09] LABS: Glucose Point of Care 140 mg/dl (65-105)
[2023-05-04] MEDS: polyethylene glycoL 3350 17 GM POWD.PACK PO (09:05)
[2023-05-04] MEDS: amLODIPine BESYLATE 5 MG TABLET 10 MG PO (09:05)
[2023-05-04] MEDS: GABAPENTIN 300 MG CAPSULE PO ×2 (09:05→16:46)
[2023-05-04] MEDS: BISACODYL 5 MG TABLET EC 10 MG PO (09:05)
[2023-05-04] MEDS: FUROSEMIDE 20 MG TABLET PO (09:06)
[2023-05-04] MEDS: DEXAMETHASONE 2 MG TABLET 6 MG PO (09:06)
[2023-05-04] MEDS: OXcarbazepine 300 MG TABLET PO ×2 (09:06→20:14)
[2023-05-04] MEDS: hydrALAZINE HCL 50 MG TABLET PO ×3 (09:06→16:46)
[2023-05-04] MEDS: FAMOTIDINE 20 MG TABLET PO (09:06)
[2023-05-04] MEDS: MAGNESIUM OXIDE 400 MG TABLET PO (09:06)
[2023-05-04] MEDS: cloNIDine HCL 0.1 MG TABLET PO ×2 (09:06→20:14)
[2023-05-04] MEDS: DULoxetine HCL 30 MG CAPSULE.DR PO (09:06)
[2023-05-04] MEDS: levETIRAcetam 500 MG TABLET 2000 MG PO ×2 (09:06→20:14)
[2023-05-04] MEDS: TOLNAFTATE 1% POWDER 45 GM BTL 1 APPLIC TOPICAL ×2 (09:07→16:49)
[2023-05-04] MEDS: FLUTICASONE PROPIONATE 0.05% NA SPR 16 GM BTL (*BKC) 1 SPRAY NASAL ×2 (09:09→16:49)
[2023-05-04] MEDS: INSULIN GLARGINE (*BKC) 100 UNITS/ML 35 UNITS SUB-Q (09:12)
[2023-05-04] MEDS: INSULIN ASPART (*BKC) 100 UNITS/ML 15 UNITS SUB-Q ×3 (09:12→16:49)
[2023-05-04] MEDS: HYDROcodone/acetaminophen (*CRX) 5-325 MG TABLET PO ×2 (10:59→20:15)
[2023-05-04] MEDS: KETOROLAC 30 MG/ML VIAL (*BKC) IV PUSH (11:03)
[2023-05-04 12:10] LABS: Glucose Point of Care 141 mg/dl (65-105)
[2023-05-04 14:20] VITALS: BP 127/78; PULSE 84; RESP 18; TEMP 37.4; O2SAT 93
[2023-05-04] MEDS: HYDROmorphone HCL INJ (*CRX) 1 MG/ML SYR 0.5 MG IV PUSH (16:46)
[2023-05-04 18:26] LABS: Glucose Point of Care 146 mg/dl (65-105)
[2023-05-04 19:27] VITALS: O2SAT 93
[2023-05-04 20:15] VITALS: BP 187/90; PULSE 94; RESP 20; TEMP 36.9; O2SAT 94
[2023-05-04 20:44] LABS: Glucose Point of Care 180 mg/dl (65-105)
[2023-05-04 21:29] VITALS: BP 140/77
[2023-05-05] VITALS (13 sets, daily range): BP systolic 106–206; BP diastolic 60–96; PULSE 67–98; RESP 10–18; TEMP 36.2–37.6; O2SAT 96–100
--- NOTE | 2023-05-05 01:21 | PC.NURSE ---
Daylight Savings Time For Daylight Savings Time Ending in the Fall - Clocks are moved back. For Daylight Savings Time Beginning in the Spring - Clocks are moved ahead. For [facility], the time of change occurs at 0200 hrs. Time is taken from the server cashier. This entry on the patient's chart recognizes the change in time reflected during documentation. Example: 2 entries for vital signs may be charted for 0200 hrs.
[2023-05-05 06:48] LABS: Hematocrit 30.8 % (42.0-52.0); Hemoglobin 9.9 g/dL (14.0-18.0); Mean Corpuscular HGB Conc 32.1 g/dl (32-36); Mean Corpuscular Hemoglobin 32.6 pg (26-34); Mean Corpuscular Volume 101.3 fl (80-100); Mean Platelet Volume 8.7 fl (7.4-10.4); Platelet Count Result 159 k/mm3 (150-375); Red Blood Count 3.04 M/mm3 (4.6-6.20); Red Cell Distribution Width 12.8 % (11.5-14.5); White Blood Count 7.8 K/mm3 (4.5-10.0)
[2023-05-05 07:05] LABS: Alanine Aminotransferase 24 U/L (6-50); Albumin Level 3.4 g/dL (3.5-5.1); Alkaline Phosphatase 65 U/L (38-126); Anion Gap 3 mmol/L (8-16); Aspartate Amino Transferase 24 U/L (17-59); Bilirubin,Total 0.5 mg/dL (0.2-1.3); Blood Urea Nitrogen 36 mg/dL (9-20); Calcium 8.7 mg/dL (8.4-10.2); Carbon Dioxide 29 mmol/L (22-30); Chloride 102 mmol/L (98-107); Estimated CRCL calculation 50 ml/min; Estimated Glomerular Filt Rate 41; Glucose 96 mg/dL (65-110); Potassium 3.9 mmol/L (3.4-5.0); Sodium 134 mmol/L (137-145)
--- NOTE | 2023-05-05 08:00 | PC.NURSE ---
To OR per [ ], IV [ ]. Report given to [ ].
--- NOTE | 2023-05-05 08:00 | PC.NURSE ---
To OR per BED, IV Left wrist. Report given to Vaughn NICHOLAS.
--- NOTE | 2023-05-05 08:07 | P.PNAN_ITS ---
Anes - Eval Final PreProcedure Day of Procedure 05/05/23 08:07 Patient weight: morbidly obese Heart: regular rate and rhythm Lungs: clear to auscultation Airway: Mallampati scale class III Neurological: alert and oriented Last oral intake: >/= 8 hours ASA classification: IV Emergent: no Anesthetic plan: proceed Anesthesia type and monitoring: general ETT and standard monitoring Results Review: All pre-operative results and documents have been reviewed as part of the pre- operative evaluation. Informed Consent: The patient's anesthetic plan and its attendant risks and benefits were discussed with the patient/family/POA. Questions were solicited and answers provided to the satisfaction of the patient/family/POA.
--- NOTE | 2023-05-05 08:46 | WPDHPUPDATE1 ---
History and Physical Update Update Date/Time: 05/05/23 08:46 History and Physical has been reviewed, including an updated exam of the patient. There are NO changes in the patient's condition. Risks, benefits, and alternatives have been discussed and questions answered. Patient agrees to proceed with procedure.
[2023-05-05 08:52] LABS: Glucose Point of Care 103 mg/dl (65-105)
--- NOTE | 2023-05-05 08:59 | W.PM.PROC2 ---
Procedure Note - Detailed Date of Procedure 05/05/23 Pre-op Diagnosis Right Hip Displaced Femoral Neck Fracture Post-op Diagnosis Same Procedure Performed Bipolar hemiarthroplasty right hip. Surgeon Sonny Preciado MD Track Man Cristhian Schwab PA-C Anesthesia General Findings Morbid obesity. Good bone quality. Description of Procedure A general anesthetic was administered. The patient was carefully placed in the lateral decubitus position on the peg board positioner. An axillary roll was placed. The hip was prepped and draped in the usual sterile fashion. A minimally invasive optimized posterior approach to the hip was performed. An L shaped capsulotomy was created along the upper border of the piriformis. The short external rotators were tagged with number 2 high strength suture for later repair. The labrum was preserved. The femoral neck cut was performed. The femoral head was removed and sized. The acetabular floor was cleared of debris and loose tissue. The femur was sequentially broached. Trial was assessed for leg length and stability. The real component was impacted into position, trialed again, and the final head and bipolar component were assembled. The hip was reduced after copious irrigation. The short external rotators and capsule were repaired through drill holes in the posterior trochanter. The wound was closed in layers with 1 vicryl, 2,0, and 2-0 running barbed suture. Adhesive tapes were placed on the skin, followed by a sterile gauze dressing. The patient was extubated and brought to the recovery room. Implants [place] Accolate 2 hip stem 127 degree, size 6, UH are bipolar component outer diameter size 52, inner metal ball size 28 mm +8. Estimated Blood Loss 300 Drains No Pathology None sent Complications No immediate complications Condition Stable Disposition PACU [facility] Billing Surgery - Charge Forward: Surgery Billing
--- NOTE | 2023-05-05 09:04 | P.PNIM_ITS ---
Progress Note: A&P Assessment and Plan (1) Closed fracture of right hip: Qualifiers: Encounter type: initial encounter Qualified Code(s): S72.001A - Fracture of unspecified part of neck of right femur, initial encounter for closed fracture Code(s): S72.001A - Fracture of unspecified part of neck of right femur, initial encounter for closed fracture Status: Acute Assessment and Plan: 05/03/23: * Status post ground level fall, patient has hemiplegia, lives at [place] * X-rays of the ankle and tib-fib do not show any fracture, x-ray right femur and hip/pelvis x-ray shown subcapital fracture of the right femoral neck * Orthopedics consulted * Patient reports 7/10 pain to the right * Continue with dilaudid 0.5 mg IV push q.4 hour for pain * Will remain NPO until after orthopedic consult 05/04/23: * Orthopedics plans to take patient to the OR tomorrow morning due to the use of Eliquis, patient will need to remain off Eliquis for at least 48 hours. * Continue diet today, NPO after MN for anticipated surgery tomorrow. * One time dose of Toradol 30 mg ordered, increased [place] to 1-2 tab every 4 hour for 1st line pain medication, adjusted dilaudid 0.5 mg to every 3 hours p.r.n. for second-line pain medication * Bedrest orders * Continue to trend labs 05/05/23: * S/P bipolar right hip hemiarthroplasty with ortho today. OR dressing in place to right hip * Eliquis restarted * Continued effort with pain control * Will order PT and OT to eval and treat * Continue to trend labs * Patient started on DM diet * Will start discussing outpatient needs with case management tomorrow. (2) History of falling: Code(s): Z91.81 - History of falling Status: Acute Assessment and Plan: 05/03/23: * Patient has hemiplegia to the right side post CVA from the past, lives at [place] * See above 05/04/23: * Will require therapy after surgury, no changes at this time. 05/05/23: * PT and OT ordered * CVA with hemiplegia to right side and new right hip fx, s/p bipolar right hip hemiarthroplasty (3) CVA (cerebral vascular accident): Code(s): I63.9 - Cerebral infarction, unspecified Status: Acute Assessment and Plan: 05/03/23: * Hemiplegia to the right side post CVA, lives at [place] * Expressive aphasia noted * Eliquis 2.5 mg tablet on hold for Ortho evaluation and treatment/possible surgery * Continued Keppra 2000 mg b.i.d.,Trileptal 300 mg b.i.d., Neurontin 300 mg p.o. b.i.d. 05/04/23: * no change to current treatment plan (4) Hemiplegia: Code(s): G81.90 - Hemiplegia, unspecified affecting unspecified side Status: Acute Assessment and Plan: 05/03/23: * Hemiplegia to the right side post CVA * Contractures noted to right hand and arm 05/04/23: * no changes at this time * patient on bedrest (5) Hypertension: Code(s): I10 - Essential (primary) hypertension Status: Acute Assessment and Plan: 05/03/23: * Blood pressures ranging 155/82 to 177/90 * Continue home medication amlodipine 10 mg p.o. daily, continue hydralazine 50 mg p.o. t.i.d. 05/04/23: * B/P ranging 146/76-162/101 * Will continue to monitor, patient back on his home medication 05/05/23: * B/P ranging 167/95-184/90 * Continue with home medications * Will add hydralazine IV with parameters as needed for blood pressure control (6) Obstructive sleep apnea: Code(s): G47.33 - Obstructive sleep apnea (adult) (pediatric) Status: Acute
--- NOTE | 2023-05-05 09:04 | PM.IMPN ---
Progress Note: A&P Assessment and Plan (1) Closed fracture of right hip: Qualifiers: Encounter type: initial encounter Qualified Code(s): S72.001A - Fracture of unspecified part of neck of right femur, initial encounter for closed fracture Code(s): S72.001A - Fracture of unspecified part of neck of right femur, initial encounter for closed fracture Status: Acute Assessment and Plan: 05/03/23: Status post ground level fall, patient has hemiplegia, lives at [place] X-rays of the ankle and tib-fib do not show any fracture, x-ray right femur and hip/pelvis x-ray shown subcapital fracture of the right femoral neck Orthopedics consulted Patient reports 7/10 pain to the right Continue with dilaudid 0.5 mg IV push q.4 hour for pain Will remain NPO until after orthopedic consult 05/04/23: Orthopedics plans to take patient to the OR tomorrow morning due to the use of Eliquis, patient will need to remain off Eliquis for at least 48 hours. Continue diet today, NPO after MN for anticipated surgery tomorrow. One time dose of Toradol 30 mg ordered, increased [place] to 1-2 tab every 4 hour for 1st line pain medication, adjusted dilaudid 0.5 mg to every 3 hours p.r.n. for second-line pain medication Bedrest orders Continue to trend labs 05/05/23: S/P bipolar right hip hemiarthroplasty with ortho today. OR dressing in place to right hip Eliquis restarted Continued effort with pain control Will order PT and OT to eval and treat Continue to trend labs Patient started on DM diet Will start discussing outpatient needs with case management tomorrow. (2) History of falling: Code(s): Z91.81 - History of falling Status: Acute Assessment and Plan: 05/03/23: Patient has hemiplegia to the right side post CVA from the past, lives at [place] See above 05/04/23: Will require therapy after surgury, no changes at this time. 05/05/23: PT and OT ordered CVA with hemiplegia to right side and new right hip fx, s/p bipolar right hip hemiarthroplasty (3) CVA (cerebral vascular accident): Code(s): I63.9 - Cerebral infarction, unspecified Status: Acute Assessment and Plan: 05/03/23: Hemiplegia to the right side post CVA, lives at [place] Expressive aphasia noted Eliquis 2.5 mg tablet on hold for Ortho evaluation and treatment/possible surgery Continued Keppra 2000 mg b.i.d.,Trileptal 300 mg b.i.d., Neurontin 300 mg p.o. b.i.d. 05/04/23: no change to current treatment plan (4) Hemiplegia: Code(s): G81.90 - Hemiplegia, unspecified affecting unspecified side Status: Acute Assessment and Plan: 05/03/23: Hemiplegia to the right side post CVA Contractures noted to right hand and arm 05/04/23: no changes at this time patient on bedrest (5) Hypertension: Code(s): I10 - Essential (primary) hypertension Status: Acute Assessment and Plan: 05/03/23: Blood pressures ranging 155/82 to 177/90 Continue home medication amlodipine 10 mg p.o. daily, continue hydralazine 50 mg p.o. t.i.d. 05/04/23: B/P ranging 146/76-162/101 Will continue to monitor, patient back on his home medication 05/05/23: B/P ranging 167/95-184/90 Continue with home medications Will add hydralazine IV with parameters as needed for blood pressure control (6) Obstructive sleep apnea: Code(s): G47.33 - Obstructive sleep apnea (adult) (pediatric) Status: Acute Assessment and Plan: 05/03/23: Noted (7) COPD (chronic obstructive pulmonary disease): Code(s): J44.9 - Chronic obstructive pulmonary disease, unspecified Status: Acute Assessment and Plan: 05/03/23: Patient currently on 2 L nasal cannula, he does not wear oxygen at home Lungs clear to auscultation 05/04/23: Patient currently on room air 05/05/23: Patient now on 2L NC with O2 saturation 99% Continue to wean O2 for oxygen saturation gr
[2023-05-05] MEDS: ceFAZolin 3 GM/D5W 100 ML 100 ML IVPB (09:15)
--- NOTE | 2023-05-05 09:52 | SUR.OPER ---
patient arrived with taylor catheter with pink tinged urine, patent and draining
[2023-05-05] MEDS: BUPIVACAINE/EPINEPHRINE 0.5% 50 ML VIAL INFILTRATE (10:01)
[2023-05-05] MEDS: LACTATED RINGERS 1,000 ML 30 ML IV CONT (11:17)
[2023-05-05 11:30] LABS: Glucose Point of Care 128 mg/dl (65-105)
[2023-05-05] MEDS: hydrALAZINE HCL 20 MG/ML VIAL 10 MG IV PUSH (11:53)
--- NOTE | 2023-05-05 12:45 | PC.NURSE ---
Returned from OR per bed. Report received from left wrist.
[2023-05-05] MEDS: BISACODYL 5 MG TABLET EC 10 MG PO (12:55)
[2023-05-05] MEDS: amLODIPine BESYLATE 5 MG TABLET 10 MG PO (12:55)
[2023-05-05] MEDS: FUROSEMIDE 20 MG TABLET PO (12:56)
[2023-05-05] MEDS: hydrALAZINE HCL 50 MG TABLET PO ×2 (12:56→17:07)
[2023-05-05] MEDS: GABAPENTIN 300 MG CAPSULE PO ×2 (12:56→17:07)
[2023-05-05] MEDS: cloNIDine HCL 0.1 MG TABLET PO ×2 (12:56→20:19)
[2023-05-05] MEDS: DEXAMETHASONE 2 MG TABLET 6 MG PO (12:56)
[2023-05-05] MEDS: FAMOTIDINE 20 MG TABLET PO (12:56)
[2023-05-05] MEDS: DULoxetine HCL 30 MG CAPSULE.DR PO (12:56)
[2023-05-05] MEDS: polyethylene glycoL 3350 17 GM POWD.PACK PO (12:57)
[2023-05-05] MEDS: MAGNESIUM OXIDE 400 MG TABLET PO (12:57)
[2023-05-05] MEDS: FLUTICASONE PROPIONATE 0.05% NA SPR 16 GM BTL (*BKC) 1 SPRAY NASAL ×2 (12:57→17:08)
[2023-05-05] MEDS: levETIRAcetam 500 MG TABLET 2000 MG PO ×2 (12:57→20:20)
[2023-05-05] MEDS: TOLNAFTATE 1% POWDER 45 GM BTL 1 APPLIC TOPICAL ×2 (12:58→17:08)
[2023-05-05] MEDS: OXcarbazepine 300 MG TABLET PO ×2 (12:58→20:20)
[2023-05-05] MEDS: INSULIN GLARGINE (*BKC) 100 UNITS/ML 35 UNITS SUB-Q (13:08)
[2023-05-05] MEDS: INSULIN ASPART (*BKC) 100 UNITS/ML 15 UNITS SUB-Q ×2 (13:09→17:08)
[2023-05-05] MEDS: ACETAMINOPHEN 500 MG TABLET 1000 MG PO ×2 (13:10→17:07)
[2023-05-05 13:19] LABS: Glucose Point of Care 186 mg/dl (65-105)
--- NOTE | 2023-05-05 13:56 | PCOTNOTE ---
Attempted OT evaluation. Per PT who spoke with hospitalist, hold evaluation till tomorrow. Will follow.
--- NOTE | 2023-05-05 14:00 | PCPTNOTE ---
Spoke with hospitalist, pt just got to his room from surgery. States patient can rest today and start therapy tomorrow.
[2023-05-05 16:47] LABS: Glucose Point of Care 221 mg/dl (65-105)
[2023-05-05] MEDS: SENNA/DOCUSATE SODIUM TABLET 2 TAB PO (17:06)
[2023-05-05] MEDS: ceFAZolin 2 GM/D5W 50 ML 2 GM/50 ML BAG IVPB (17:35)
[2023-05-05] MEDS: SODIUM CHLORIDE 0.9% IV 1,000 ML 125 ML IV CONT (20:19)
[2023-05-05] MEDS: HYDROcodone/acetaminophen (*CRX) 5-325 MG TABLET PO (20:20)
[2023-05-06] VITALS: BP 156/77; PULSE 80; RESP 16; TEMP 36.6; O2SAT 98
[2023-05-06] MEDS: ceFAZolin 2 GM/D5W 50 ML 2 GM/50 ML BAG IVPB ×2 (02:00→08:47)
[2023-05-06] MEDS: SODIUM CHLORIDE 0.9% IV 1,000 ML 125 ML IV CONT (04:47)
[2023-05-06] MEDS: ACETAMINOPHEN 500 MG TABLET 1000 MG PO ×3 (05:03→17:24)
[2023-05-06 06:05] VITALS: BP 128/68; PULSE 67; RESP 20; TEMP 36.7; O2SAT 99
[2023-05-06 06:36] LABS: Basophils Percent Auto 0.2 % (0.2-1.2); Eosinophils Percent Auto 0.1 % (0-4.4); Hematocrit 25.9 % (42.0-52.0); Hemoglobin 8.4 g/dL (14.0-18.0); Immature Granulocyte Absolute 0.12 K/mm3 (0.00-0.031); Immature Granulocyte Percent A 1.2 % (0-0.5); Lymphocytes Absolute Auto 0.39 K/mm3 (0.9-3.2); Lymphocytes Percent Auto 3.9 % (18.3-44.2); Mean Corpuscular HGB Conc 32.4 g/dl (32-36); Mean Corpuscular Hemoglobin 33.1 pg (26-34); Mean Platelet Volume 8.6 fl (7.4-10.4); Monocytes Percent Auto 9.7 % (2.6-8.5); Neutrophils Absolute Auto 8.5 K/mm3 (1.3-6.7); Neutrophils Percent Auto 84.9 % (45.5-73.1); Platelet Count Result 125 k/mm3 (150-375); Red Blood Count 2.54 M/mm3 (4.6-6.20); Red Cell Distribution Width 12.8 % (11.5-14.5)
[2023-05-06 06:55] LABS: Alanine Aminotransferase 18 U/L (6-50); Albumin Level 2.7 g/dL (3.5-5.1); Alkaline Phosphatase 54 U/L (38-126); Anion Gap 1 mmol/L (8-16); Aspartate Amino Transferase 19 U/L (17-59); Bilirubin,Total 0.4 mg/dL (0.2-1.3); Blood Urea Nitrogen 33 mg/dL (9-20); Calcium 8.1 mg/dL (8.4-10.2); Carbon Dioxide 32 mmol/L (22-30); Chloride 101 mmol/L (98-107); Estimated CRCL calculation 57 ml/min; Estimated Glomerular Filt Rate 47; Glucose 188 mg/dL (65-110); Potassium 4.1 mmol/L (3.4-5.0); Sodium 134 mmol/L (137-145)
[2023-05-06 07:57] LABS: Glucose Point of Care 166 mg/dl (65-105)
[2023-05-06 08:00] VITALS: BP 126/69; PULSE 64; RESP 12; TEMP 36.3; O2SAT 99
--- NOTE | 2023-05-06 08:33 | P.PNIM_ITS ---
Progress Note: A&P Assessment and Plan (1) Closed fracture of right hip: Qualifiers: Encounter type: initial encounter Qualified Code(s): S72.001A - Fracture of unspecified part of neck of right femur, initial encounter for closed fracture Code(s): S72.001A - Fracture of unspecified part of neck of right femur, initial encounter for closed fracture Status: Acute Assessment and Plan: 05/03/23: * Status post ground level fall, patient has hemiplegia, lives at [place] * X-rays of the ankle and tib-fib do not show any fracture, x-ray right femur and hip/pelvis x-ray shown subcapital fracture of the right femoral neck * Orthopedics consulted * Patient reports 7/10 pain to the right * Continue with dilaudid 0.5 mg IV push q.4 hour for pain * Will remain NPO until after orthopedic consult 05/04/23: * Orthopedics plans to take patient to the OR tomorrow morning due to the use of Eliquis, patient will need to remain off Eliquis for at least 48 hours. * Continue diet today, NPO after MN for anticipated surgery tomorrow. * One time dose of Toradol 30 mg ordered, increased [place] to 1-2 tab every 4 hour for 1st line pain medication, adjusted dilaudid 0.5 mg to every 3 hours p.r.n. for second-line pain medication * Bedrest orders * Continue to trend labs 05/05/23: * S/P bipolar right hip hemiarthroplasty with ortho today. OR dressing in place to right hip * Eliquis restarted * Continued effort with pain control * Will order PT and OT to eval and treat * Continue to trend labs * Patient started on DM diet * Will start discussing outpatient needs with case management tomorrow. 05/06/23: * Post op day 1 bipolar right hip hemiarthroplasty, OR dressing in place to the right hip * Continue oral pain medication for pain control * continue PT and OT * Labs stable, will continue to trend * Will touch base today with case management for discharge needs. (2) History of falling: Code(s): Z91.81 - History of falling Status: Acute Assessment and Plan: 05/03/23: * Patient has hemiplegia to the right side post CVA from the past, lives at [place] * See above 05/04/23: * Will require therapy after surgury, no changes at this time. 05/05/23: * PT and OT ordered * CVA with hemiplegia to right side and new right hip fx, s/p bipolar right hip hemiarthroplasty 05/06/23: * Continue PT and OT (3) CVA (cerebral vascular accident): Code(s): I63.9 - Cerebral infarction, unspecified Status: Acute Assessment and Plan: 05/03/23: * Hemiplegia to the right side post CVA, lives at [place] * Expressive aphasia noted * Eliquis 2.5 mg tablet on hold for Ortho evaluation and treatment/possible surgery * Continued Keppra 2000 mg b.i.d.,Trileptal 300 mg b.i.d., Neurontin 300 mg p.o. b.i.d. 05/04/23: * no change to current treatment plan (4) Hemiplegia: Code(s): G81.90 - Hemiplegia, unspecified affecting unspecified side Status: Acute Assessment and Plan: 05/03/23: * Hemiplegia to the right side post CVA * Contractures noted to right hand and arm 05/04/23: * no changes at this time * patient on bedrest 05/05/23: * no change to current treatment plan * plan for PT and OT post op 05/06/23: * PT and OT evaluation today (5) Hypertension: Code(s): I10 - Essential (primary) hypertension Status: Acute Assessment and Plan: 05/03/23: * Blood pressures ranging 155/82 to 177/90 * Continue home medication
--- NOTE | 2023-05-06 08:33 | PM.IMPN ---
Progress Note: A&P Assessment and Plan (1) Closed fracture of right hip: Qualifiers: Encounter type: initial encounter Qualified Code(s): S72.001A - Fracture of unspecified part of neck of right femur, initial encounter for closed fracture Code(s): S72.001A - Fracture of unspecified part of neck of right femur, initial encounter for closed fracture Status: Acute Assessment and Plan: 05/03/23: Status post ground level fall, patient has hemiplegia, lives at [place] X-rays of the ankle and tib-fib do not show any fracture, x-ray right femur and hip/pelvis x-ray shown subcapital fracture of the right femoral neck Orthopedics consulted Patient reports 7/10 pain to the right Continue with dilaudid 0.5 mg IV push q.4 hour for pain Will remain NPO until after orthopedic consult 05/04/23: Orthopedics plans to take patient to the OR tomorrow morning due to the use of Eliquis, patient will need to remain off Eliquis for at least 48 hours. Continue diet today, NPO after MN for anticipated surgery tomorrow. One time dose of Toradol 30 mg ordered, increased [place] to 1-2 tab every 4 hour for 1st line pain medication, adjusted dilaudid 0.5 mg to every 3 hours p.r.n. for second-line pain medication Bedrest orders Continue to trend labs 05/05/23: S/P bipolar right hip hemiarthroplasty with ortho today. OR dressing in place to right hip Eliquis restarted Continued effort with pain control Will order PT and OT to eval and treat Continue to trend labs Patient started on DM diet Will start discussing outpatient needs with case management tomorrow. 05/06/23: Post op day 1 bipolar right hip hemiarthroplasty, OR dressing in place to the right hip Continue oral pain medication for pain control continue PT and OT Labs stable, will continue to trend Will touch base today with case management for discharge needs. (2) History of falling: Code(s): Z91.81 - History of falling Status: Acute Assessment and Plan: 05/03/23: Patient has hemiplegia to the right side post CVA from the past, lives at [place] See above 05/04/23: Will require therapy after surgury, no changes at this time. 05/05/23: PT and OT ordered CVA with hemiplegia to right side and new right hip fx, s/p bipolar right hip hemiarthroplasty 05/06/23: Continue PT and OT (3) CVA (cerebral vascular accident): Code(s): I63.9 - Cerebral infarction, unspecified Status: Acute Assessment and Plan: 05/03/23: Hemiplegia to the right side post CVA, lives at [place] Expressive aphasia noted Eliquis 2.5 mg tablet on hold for Ortho evaluation and treatment/possible surgery Continued Keppra 2000 mg b.i.d.,Trileptal 300 mg b.i.d., Neurontin 300 mg p.o. b.i.d. 05/04/23: no change to current treatment plan (4) Hemiplegia: Code(s): G81.90 - Hemiplegia, unspecified affecting unspecified side Status: Acute Assessment and Plan: 05/03/23: Hemiplegia to the right side post CVA Contractures noted to right hand and arm 05/04/23: no changes at this time patient on bedrest 05/05/23: no change to current treatment plan plan for PT and OT post op 05/06/23: PT and OT evaluation today (5) Hypertension: Code(s): I10 - Essential (primary) hypertension Status: Acute Assessment and Plan: 05/03/23: Blood pressures ranging 155/82 to 177/90 Continue home medication amlodipine 10 mg p.o. daily, continue hydralazine 50 mg p.o. t.i.d. 05/04/23: B/P ranging 146/76-162/101 Will continue to monitor, patient back on his home medication 05/05/23: B/P ranging 167/95-184/90 Continue with home medications Will add hydralazine IV with parameters as needed for blood pressure control 05/06/23: Blood pressure ranging 126/69-135/67 no change to current treatment plan (6) Obstructive sleep apnea: Code(s): G47.33 - Obstructive sleep apnea (adult)
[2023-05-06] MEDS: HYDROcodone/acetaminophen (*CRX) 5-325 MG TABLET PO (08:48)
[2023-05-06] MEDS: INSULIN ASPART (*BKC) 100 UNITS/ML 15 UNITS SUB-Q ×3 (08:50→17:10)
[2023-05-06] MEDS: hydrALAZINE HCL 50 MG TABLET PO ×3 (09:08→17:10)
[2023-05-06] MEDS: BISACODYL 5 MG TABLET EC 10 MG PO (09:08)
[2023-05-06] MEDS: APIXABAN 2.5 MG TABLET PO ×2 (09:08→17:10)
[2023-05-06] MEDS: levETIRAcetam 500 MG TABLET 2000 MG PO ×2 (09:09→20:55)
[2023-05-06] MEDS: FAMOTIDINE 20 MG TABLET PO (09:09)
[2023-05-06] MEDS: DEXAMETHASONE 2 MG TABLET 6 MG PO (09:09)
[2023-05-06] MEDS: cloNIDine HCL 0.1 MG TABLET PO ×2 (09:09→20:54)
[2023-05-06] MEDS: FUROSEMIDE 20 MG TABLET PO (09:09)
[2023-05-06] MEDS: DULoxetine HCL 30 MG CAPSULE.DR PO (09:09)
[2023-05-06] MEDS: amLODIPine BESYLATE 5 MG TABLET 10 MG PO (09:09)
[2023-05-06] MEDS: GABAPENTIN 300 MG CAPSULE PO ×2 (09:09→17:10)
[2023-05-06] MEDS: polyethylene glycoL 3350 17 GM POWD.PACK PO (09:09)
[2023-05-06] MEDS: OXcarbazepine 300 MG TABLET PO ×2 (09:09→20:54)
[2023-05-06] MEDS: SENNA/DOCUSATE SODIUM TABLET 2 TAB PO ×2 (09:09→17:10)
[2023-05-06] MEDS: MAGNESIUM OXIDE 400 MG TABLET PO (09:09)
[2023-05-06] MEDS: TOLNAFTATE 1% POWDER 45 GM BTL 1 APPLIC TOPICAL ×2 (09:10→17:14)
[2023-05-06] MEDS: FLUTICASONE PROPIONATE 0.05% NA SPR 16 GM BTL (*BKC) 1 SPRAY NASAL ×2 (09:10→17:14)
[2023-05-06] MEDS: INSULIN GLARGINE (*BKC) 100 UNITS/ML 35 UNITS SUB-Q (09:13)
[2023-05-06 11:34] LABS: Glucose Point of Care 190 mg/dl (65-105)
[2023-05-06 12:00] VITALS: BP 135/67; PULSE 90; RESP 16; TEMP 37.4; O2SAT 96
[2023-05-06] MEDS: oxyCODONE HCL (*CRX) 2.5 MG TAB IR PO (12:45)
--- NOTE | 2023-05-06 15:15 | PM.PNORT ---
Progress Note: A&P Assessment and Plan (1) Closed fracture of right hip: Qualifiers: Encounter type: initial encounter Qualified Code(s): S72.001A - Fracture of unspecified part of neck of right femur, initial encounter for closed fracture Code(s): S72.001A - Fracture of unspecified part of neck of right femur, initial encounter for closed fracture Status: Acute Assessment and Plan: POD #1 Bipolar hemiarthroplasty. Patient progressing well. Doing what he can with formal physical therapy and OT. Plan is for him to return to SNF at discharge. We discussed hip precautions. He shows good understanding. Discussed natural course of healing. He shows good understanding. Okay for discharge once medically cleared. Will need to follow up with xray surveillance as it will likely be difficult for him to get to the office. Subjective Subjective Date/Time Seen: 05/06/23 15:15 Interval history: Patient resting comfortably in a chair. Complains of pain in the hip. Also that he has not been able to have a bowel movement. No other complaints. Review of Systems Review of Systems: All systems reviewed & are unremarkable except as noted in HPI and below Exam Narrative: Patient is alert and oriented to self. Overweight 62 y/o male. Resting comfortably in a chair. No acute distress. No erythema or ecchymosis. No rashes or lesions noted. Warm, normal appearing skin. Hip tender. Distal edema. Calf nontender. Distal pulses palpable. Normal capillary refill. Light touch sensation intact. He is at his baseline mobility. Unable to wiggle toes or move leg. Objective Data Vital Signs Vital Signs: Vital Signs - 24 hr 05/05/23 16:41 05/05/23 16:00 05/05/23 19:46 Temperature 97.8 F Pulse Rate 84 81 Respiratory Rate 12 Blood Pressure 134/67 106/62 Pulse Oximetry 99 99 99 Oxygen Delivery Nasal Cannula Oxygen Flow Rate 2 05/05/23 20:18 05/06/23 00:00 05/06/23 06:05 Temperature 99.7 F H 97.9 F 98.1 F Pulse Rate 74 80 67 Respiratory Rate 18 16 20 Blood Pressure 130/60 156/77 H 128/68 Pulse Oximetry 97 98 99 Oxygen Delivery Oxygen Flow Rate 05/06/23 08:00 05/06/23 08:36 05/06/23 09:10 Temperature 97.3 F L Pulse Rate 64 Respiratory Rate 12 Blood Pressure 126/69 Pulse Oximetry 99 Oxygen Delivery Room Air Room Air Oxygen Flow Rate 05/06/23 12:00 Temperature 99.3 F Pulse Rate 90 Respiratory Rate 16 Blood Pressure 135/67 Pulse Oximetry 96 Oxygen Delivery Oxygen Flow Rate Intake/Output Intake/Output: Intake & Output 05/04/23 05/05/23 05/05/23 05/06/23 00:59 00:59 23:59 23:59 Intake Total 2364 Output Total 1500 Balance 864 Meds/Results Medications: Active Medications Generic Name Dose Route Start Last Admin Trade Name Freq PRN Reason Stop Dose Admin Acetaminophen 1,000 mg 05/05/23 12:20 05/06/23 11:35 Acetaminophen 500 Mg Tablet PO 1,000 mg Q6HR JAMILA Administration Hydrocodone Bitart/Acetaminophen 1 - 2 tab 05/04/23 10:07 05/06/23 08:48 Hydrocodone/Acetaminophen (*Crx) 5-325 Mg Tablet PO 1 tab Q4H PRN Administration Pain Rated 4-6 Amlodipine Besylate 10 mg 05/03/23 13:15 05/06/23 09:09 Amlodipine Besylate 5 Mg Tablet PO 10 mg DAILY JAMILA Administration Apixaban 2.5 mg 05/06/23 09:00 05/06/23 09:08 Apixaban 2.5 Mg Tablet PO 2.5 mg BID JAMILA Administration Bisacodyl 10 mg 05/04/23 09:00 05/06/23 09:08 Bisacodyl 5 Mg Tablet Ec PO 10 mg DAILY JAMILA Administration Clonidine HCl 0.1 mg 05/03/23 21:00 05/06/23 09:09 Clonidine Hcl 0.1 Mg Tablet PO 0.1 mg Q12HR JAMILA Administration Cyclobenzaprine HCl 10 mg 05/05/23 12:20 Cyclobenzaprine Hcl 10 Mg Tablet PO Q8H PRN Muscle Spasm Dexamethasone 6 mg 05/03/23 13:10 05/06/23 09:09 Dexamethasone 2 Mg Tablet PO 6 mg DAILY JAMILA Administration Dextrose 12.5 gm 05/03/23 12:49 Dextrose 50% 25
[2023-05-06 16:00] VITALS: BP 122/66; PULSE 73; RESP 16; TEMP 36.6; O2SAT 95
[2023-05-06 16:45] LABS: Glucose Point of Care 191 mg/dl (65-105)
[2023-05-06 20:00] VITALS: BP 128/64; PULSE 71; RESP 18; TEMP 37; O2SAT 94
[2023-05-06] MEDS: CYCLOBENZAPRINE HCL 10 MG TABLET PO (20:54)
[2023-05-06 22:02] LABS: Glucose Point of Care 191 mg/dl (65-105)
[2023-05-07] VITALS: BP 132/72; PULSE 82; RESP 18; TEMP 36.8; O2SAT 97
[2023-05-07] MEDS: ACETAMINOPHEN 500 MG TABLET 1000 MG PO ×3 (00:39→11:56)
[2023-05-07 04:00] VITALS: BP 137/74; PULSE 86; RESP 18; TEMP 36.4; O2SAT 95
[2023-05-07] MEDS: oxyCODONE HCL (*CRX) 5 MG TAB IR PO ×2 (06:37→14:55)
[2023-05-07 07:35] LABS: Alanine Aminotransferase 13 U/L (6-50); Albumin Level 3.3 g/dL (3.5-5.1); Alkaline Phosphatase 34 U/L (38-126); Anion Gap 3 mmol/L (8-16); Aspartate Amino Transferase 50 U/L (17-59); Blood Urea Nitrogen 32 mg/dL (9-20); Calcium 8.5 mg/dL (8.4-10.2); Carbon Dioxide 30 mmol/L (22-30); Chloride 101 mmol/L (98-107); Estimated CRCL calculation 65 ml/min; Estimated Glomerular Filt Rate 56; Glucose 111 mg/dL (65-110); Potassium 4.9 mmol/L (3.4-5.0); Sodium 134 mmol/L (137-145)
[2023-05-07 07:40] LABS: SARS-CoV-2 RNA PCR Negative (Negative)
[2023-05-07 08:38] LABS: Glucose Point of Care 121 mg/dl (65-105)
[2023-05-07 08:41] LABS: Hematocrit 27.6 % (42.0-52.0); Hemoglobin 8.9 g/dL (14.0-18.0); Mean Corpuscular HGB Conc 32.2 g/dl (32-36); Mean Corpuscular Hemoglobin 32.7 pg (26-34); Mean Corpuscular Volume 101.5 fl (80-100); Mean Platelet Volume 8.7 fl (7.4-10.4); Platelet Count Result 154 k/mm3 (150-375); Red Blood Count 2.72 M/mm3 (4.6-6.20); White Blood Count 8.8 K/mm3 (4.5-10.0)
[2023-05-07] MEDS: INSULIN GLARGINE (*BKC) 100 UNITS/ML 35 UNITS SUB-Q (09:15)
[2023-05-07] MEDS: DULoxetine HCL 30 MG CAPSULE.DR PO (09:17)
[2023-05-07] MEDS: levETIRAcetam 500 MG TABLET 2000 MG PO (09:17)
[2023-05-07] MEDS: OXcarbazepine 300 MG TABLET PO (09:17)
[2023-05-07] MEDS: FUROSEMIDE 20 MG TABLET PO (09:17)
[2023-05-07] MEDS: MAGNESIUM OXIDE 400 MG TABLET PO (09:17)
[2023-05-07] MEDS: BISACODYL 5 MG TABLET EC 10 MG PO (09:17)
[2023-05-07] MEDS: amLODIPine BESYLATE 5 MG TABLET 10 MG PO (09:18)
[2023-05-07] MEDS: FAMOTIDINE 20 MG TABLET PO (09:18)
[2023-05-07] MEDS: GABAPENTIN 300 MG CAPSULE PO (09:18)
[2023-05-07] MEDS: hydrALAZINE HCL 50 MG TABLET PO ×2 (09:18→11:56)
[2023-05-07] MEDS: cloNIDine HCL 0.1 MG TABLET PO (09:18)
[2023-05-07] MEDS: APIXABAN 2.5 MG TABLET PO (09:18)
[2023-05-07] MEDS: polyethylene glycoL 3350 17 GM POWD.PACK PO (09:20)
[2023-05-07] MEDS: DEXAMETHASONE 2 MG TABLET 6 MG PO (09:23)
[2023-05-07] MEDS: SENNA/DOCUSATE SODIUM TABLET 2 TAB PO (09:23)
--- NOTE | 2023-05-07 09:33 | PC.NURSE ---
This RN notified physician of blood glucose at 121 with orders to give 35 units of Lantus and 15 units of novolog. Physician would like the Lantus to be administered at this time and the Novolog is to be held, with a blood glucose recheck with lunch.
[2023-05-07] MEDS: BISACODYL 10 MG SUPPOSITORY RECTAL (09:41)
[2023-05-07] MEDS: FLUTICASONE PROPIONATE 0.05% NA SPR 16 GM BTL (*BKC) 1 SPRAY NASAL (09:41)
[2023-05-07] MEDS: TOLNAFTATE 1% POWDER 45 GM BTL 1 APPLIC TOPICAL (09:41)
--- NOTE | 2023-05-07 10:25 | PM.PNORT ---
Progress Note: A&P Assessment and Plan (1) Closed fracture of right hip: Qualifiers: Encounter type: initial encounter Qualified Code(s): S72.001A - Fracture of unspecified part of neck of right femur, initial encounter for closed fracture Code(s): S72.001A - Fracture of unspecified part of neck of right femur, initial encounter for closed fracture Status: Acute Assessment and Plan: POD #2 Bipolar hemiarthroplasty. Patient progressing well. Continues to try and work with therapy. Plan is for him to return to SNF at discharge. We discussed hip precautions. He shows good understanding. Discussed natural course of healing. He shows good understanding. Okay for discharge once medically cleared. Will need to follow up with xray surveillance as it will likely be difficult for him to get to the office. Subjective Subjective Date/Time Seen: 05/07/23 10:25 Interval history: Patient resting comfortably in bed. States he is having pain in his hip. No other complaints. Review of Systems Review of Systems: Denies loss of consciousness. All systems reviewed & are unremarkable except as noted in HPI and below Exam Narrative: Patient is alert and oriented x4. Overweight 62 y/o male. Resting comfortably in bed. No acute distress. No erythema or ecchymosis. No rashes or lesions noted. Warm, normal appearing skin. Hip tender. Distal edema. Calf nontender. Distal pulses palpable. Normal capillary refill. Light touch sensation intact. He is at his baseline mobility. Unable to wiggle toes or move leg. He does have distal edema. Leg is elevated. Objective Data Vital Signs Vital Signs: Vital Signs - 24 hr 05/06/23 12:00 05/06/23 16:00 05/06/23 20:00 Temperature 99.3 F 97.8 F 98.6 F Pulse Rate 90 73 71 Respiratory Rate 16 16 18 Blood Pressure 135/67 122/66 128/64 Pulse Oximetry 96 95 94 Oxygen Delivery 05/07/23 00:00 05/06/23 20:00 05/07/23 04:00 Temperature 98.3 F 97.5 F L Pulse Rate 82 86 Respiratory Rate 18 18 Blood Pressure 132/72 137/74 Pulse Oximetry 97 95 Oxygen Delivery Room Air Intake/Output Intake/Output: Intake & Output 05/05/23 05/05/23 05/06/23 05/07/23 00:59 23:59 23:59 23:59 Intake Total 2604 510 Output Total 2700 800 Balance -96 -290 Meds/Results Medications: Active Medications Generic Name Dose Route Start Last Admin Trade Name Clau PRN Reason Stop Dose Admin Acetaminophen 1,000 mg 05/05/23 12:20 05/07/23 06:34 Acetaminophen 500 Mg Tablet PO 1,000 mg Q6HR JAMILA Administration Amlodipine Besylate 10 mg 05/03/23 13:15 05/07/23 09:18 Amlodipine Besylate 5 Mg Tablet PO 10 mg DAILY JAMILA Administration Apixaban 2.5 mg 05/06/23 09:00 05/07/23 09:18 Apixaban 2.5 Mg Tablet PO 2.5 mg BID JAMILA Administration Bisacodyl 10 mg 05/04/23 09:00 05/07/23 09:17 Bisacodyl 5 Mg Tablet Ec PO 10 mg DAILY JAMILA Administration Clonidine HCl 0.1 mg 05/03/23 21:00 05/07/23 09:18 Clonidine Hcl 0.1 Mg Tablet PO 0.1 mg Q12HR JAMILA Administration Cyclobenzaprine HCl 10 mg 05/05/23 12:20 05/06/23 20:54 Cyclobenzaprine Hcl 10 Mg Tablet PO 10 mg Q8H PRN Administration Muscle Spasm Dexamethasone 6 mg 05/03/23 13:10 05/07/23 09:23 Dexamethasone 2 Mg Tablet PO 6 mg DAILY JAMILA Administration Dextrose 12.5 gm 05/03/23 12:49 Dextrose 50% 25 Gm/50 Ml Syringe IV PUSH PRN PRN Hypoglycemia Protocol Duloxetine HCl 30 mg 05/03/23 13:10 05/07/23 09:17 Duloxetine Hcl 30 Mg Capsule.Dr PO 30 mg DAILY JAMILA Administration Famotidine 20 mg 05/03/23 13:10 05/07/23 09:18 Famotidine 20 Mg Tablet PO 20 mg DAILY JAMILA Administration Fentanyl Citrate 25 mcg 05/05/23 08:10 Fentanyl Citrate Inj (*Crx) 100 Mcg/2 Ml Vial IV PUSH Q2M PRN Pain Fluticasone Propionate 1 spray 05/03/23 17:00 05/07/23 09:41 Fluticasone Propionate 0.05% Na Spr 1
[2023-05-07 11:46] LABS: Glucose Point of Care 199 mg/dl (65-105)
[2023-05-07] MEDS: INSULIN ASPART (*BKC) 100 UNITS/ML 15 UNITS SUB-Q (11:56)
--- NOTE | 2023-05-07 11:58 | PM.DS ---
DS: Admitting Diagnosis Discharge Date 05/07/23 Admitting Diagnosis right hip fracture DS: Discharge Diagnosis Discharge Diagnosis (1) Closed fracture of right hip: Qualifiers: Encounter type: initial encounter Qualified Code(s): S72.001A - Fracture of unspecified part of neck of right femur, initial encounter for closed fracture Code(s): S72.001A - Fracture of unspecified part of neck of right femur, initial encounter for closed fracture Status: Acute (2) History of falling: Code(s): Z91.81 - History of falling Status: Acute (3) CVA (cerebral vascular accident): Code(s): I63.9 - Cerebral infarction, unspecified Status: Acute (4) Hemiplegia: Code(s): G81.90 - Hemiplegia, unspecified affecting unspecified side Status: Acute (5) Hypertension: Code(s): I10 - Essential (primary) hypertension Status: Acute (6) Obstructive sleep apnea: Code(s): G47.33 - Obstructive sleep apnea (adult) (pediatric) Status: Acute (7) COPD (chronic obstructive pulmonary disease): Code(s): J44.9 - Chronic obstructive pulmonary disease, unspecified Status: Acute (8) Type II diabetes mellitus: Code(s): E11.9 - Type 2 diabetes mellitus without complications Status: Acute (9) GERD (gastroesophageal reflux disease): Code(s): K21.9 - Gastro-esophageal reflux disease without esophagitis Status: Acute (10) Constipation: Code(s): K59.00 - Constipation, unspecified Status: Acute DS: Summary Hospital Course Reason for hospitalization: Right hip fracture S/P bipolar right hip hemiarthroplasty Hospital Course: This is a 62 year old male who presents to the hospital on 05/23/2023 after sustaining a ground level at his facility. workup in the hospital included a CT scan of the brain without contrast which was negative for anything acute, he also had a C-spine CT which was negative for any acute fracture or abnormality, he had x-rays of ankle and tib-fib which did not show any fracture, and x-rays of his femur, hip, and pelvis which revealed subcapital fracture of the right femoral neck. He also had a chest x-ray done which showed mild atelectasis, no pleural effusion. Ortho surgery was consulted. Patient was taken to the OR on 05/05/2023 where he underwent a bipolar hemiarthroplasty the right hip PT and OT been working with him while inpatient. Pain is well controlled, vital signs stable, he is on room, he remains afebrile. He denies any new complaints today. Labs today reveal white blood cell count 8.8, hemoglobin 8.9, hematocrit 27.6, sodium 134, potassium 4.9, BUN 32, creatinine 1.30, blood sugars ranging 111-121. Patient is stable for discharge. he will follow-up with Orthopedic surgery in 2 weeks for follow up. Status at Discharge Cognitive/behavioral status at discharge: Alert and oriented x3 Functional status at discharge: wheelchair bound Overall status at discharge: patient is progressing back to baseline Time Spent with Patient Time attestation: Total time spent providing and/or coordinating discharge services: Time spent: Greater than 30 minutes Exam Narrative: General appearance: Well-developed, well-nourished, pleasant Head: Normocephalic, nontraumatic Eyes: EOMI, PERRLA ENT: Moist mucous membranes Neck: Supple, no JVD, no lymphadenopathy, trachea midline Chest and respiratory: Lungs clear to auscultation, no adventitious lung sounds, patient on room air. Heart: Regular rate/rhythm, Normal S1 and S2, peripheral pulses intact, No murmur, gallop or friction rub noted. Abdomen: Soft, obese, nontender, normoactive bowel sounds Vascular: Normal peripheral pulses, normal capillary refill. Musculoskeletal: Limited ROM to right hip, hemiplegia on right side from CVA in the past, contractures to right arm. Neurologic: Expressive aphasia, alert and oriented x4 Psych: normal mood, normal affect, interactive S
[2023-05-07 12:00] VITALS: BP 139/78; PULSE 84; RESP 18; TEMP 36.7; O2SAT 98
== END 2023-05-07 15:50 | DRG 522 ==
LOC: ANHED 08:37 → ANH3MEDSUR 09:07
PROVIDERS: Orthopaedic Surgery; Physician Assistant Surgical; Admitting Provider Family Medicine; Emergency Provider Emergency Medicine; PCP Family Medicine; Visit Provider Nurse Practitioner Acute Care
PROC: 0SRR01A Replacement of Right Hip Joint, Femoral Surface with Metal Synthetic Substitute, Uncemented, Open Approach (ICD-10-PCS; CPT 27125; principal; 2023-05-05 08:00)
DX: S72.011A Unspecified intracapsular fracture of right femur, initial encounter for closed fracture (principal); I69.351 Hemiplegia and hemiparesis following cerebral infarction affecting right dominant side; Z68.42 Body mass index [BMI] 45.0-49.9, adult; W18.30XA Fall on same level, unspecified, initial encounter; S01.81XA Laceration without foreign body of other part of head, initial encounter; I10 Essential (primary) hypertension; J44.9 Chronic obstructive pulmonary disease, unspecified; K21.9 Gastro-esophageal reflux disease without esophagitis; F41.1 Generalized anxiety disorder; K59.00 Constipation, unspecified; G47.33 Obstructive sleep apnea (adult) (pediatric); E11.9 Type 2 diabetes mellitus without complications; Z91.81 History of falling; I69.320 Aphasia following cerebral infarction; Z11.52 Encounter for screening for COVID-19; E66.01 Morbid (severe) obesity due to excess calories
CPT/HCPCS: 36415; 70450; 71045; 72125; 73502; 73552; 73590; 73600; 80053; 82948; 85025; 85027; 85610; 85730; 86850; 86900; 86901; 87635; 93005; 96374; 96375; 97110; 97162; 97166; 97530; 97535; 99285; A9270; C1776; J0360; J0690; J1100; J1170; J1815; J1885; J2250; J2405; J2704; J3010; J7030; J7120; J8540

== ENCOUNTER 2023-09-21 13:55 | Emergency (ER) | payer MEDICARE, SELFPAY ==
--- NOTE | ~2023-09-21 | XR_ITS ---
EXAM: XR foot RT min 3V DATE: 09/21/2023 14:15 HISTORY: seizure yesterday, R foot inj, 1st MT fx? . COMPARISON: 05/03/2023. FINDINGS: Decreased mineralization. Transverse nondisplaced fractures of the proximal aspects of the proximal fourth and fifth proximal phalanges. No lytic or blastic lesion. Bifid medial sesamoid. Mod erate hallux valgus and first MTP joint degenerative change. Moderate plantar enthesopathy. No erosio n or periosteal change. Marked soft tissue swelling. IMPRESSION: Transverse nondisplaced fractures of the proximal aspects of the fourth and fifth proxima l phalanges. Reviewed, dictated and finalized at location K. IMPRESSION: Transverse nondisplaced fractures of the proximal aspects of the fo urth and fifth proximal phalanges.
--- NOTE | ~2023-09-21 | CT_ITS ---
EXAMINATION: CT brain wo con DATE: 09/21/2023 14:29 INDICATION: seizure yesterday, unknown HI, on eliquis . TECHNIQUE: Computed tomography (CT) of the head was performed without intravenous contrast. The mA wa s adjusted according to patient size. Iterative reconstruction technique was employed. The dose-lengt h product was 605.33 mGy-cm. COMPARISON: 05/03/2023. FINDINGS: No acute intracranial hemorrhage or extra-axial fluid collection. No hydrocephalus, mass, or herniation. No acute ischemic infarct. Unremarkable dural venous sinus attenuation. No acute osseous abnormality. Left craniotomy. The aerated spaces are clear. Moderate atrophy and chronic white matter change. Atherosclerotic intracranial calcification. Left fr ontotemporoparietal encephalomalacia with ex vacuo dilatation of the left lateral ventricle and incre asing associated calcifications. IMPRESSION: Evolving left frontotemporoparietal encephalomalacia with increasing associated calcifications. A com ponent of neoplasm is not excluded. Consider comparison to outside studies if available, or MRI of th e brain without and with contrast. Reviewed, dictated and finalized at location K. IMPRESSION: Evolving left frontotemporoparietal encephalomalacia with increasing associated calcifications. A component of neoplasm is not excluded. Consider comparison t o outside studies if available, or MRI of the brain without and with contrast.
--- NOTE | ~2023-09-21 | CT_ITS ---
EXAMINATION: CT cervical spine wo con DATE: 09/21/2023 14:29 INDICATION: morzure yesterday, unknown hi TECHNIQUE: Computed tomography (CT) of the cervical spine was performed without intravenous contrast. Automated exposure control and iterative reconstruction technique were employed. The dose-length pro duct was 594.31 mGy-cm. COMPARISON: 05/03/2023. FINDINGS: Vertebral Body Alignment: Intact. Reversed lordosis centered at C3-4. Stable trace anterolisthesis at C2-3. Craniocervical and atlantoaxial alignment: Moderate degenerative change. Alignment intact. Osseous structures/fracture: No evidence of a lytic or blastic process in the visualized spine. No e vidence of acute fracture. Cervical soft tissues: The paraspinal soft tissues planes are maintained. Tracheal secretions. Degenerative changes: Multilevel severe degenerative disc changes and facet arthropathy. Multilevel s evere bilateral neural foraminal narrowing secondary to degenerative change. No severe central canal narrowing. IMPRESSION: No acute fracture or traumatic malalignment in the cervical spine. Reviewed, dictated and finalized at location K.
[2023-09-21 13:57] VITALS: BP 140/90; PULSE 99; RESP 18; TEMP 36.9; O2SAT 95
--- NOTE | 2023-09-21 14:09 | ED.LOWEXIN ---
HPI - Extremity Injury (Lower) General Chief Complaint: Extremity Injury, Lower Stated Complaint: extermity injury post seizure Source: patient Mode of arrival: EMS Limitations: no limitations and language barrier History of Present Illness HPI Narrative: Patient is a 62 y/o male, with PMH of brain CA, CVA w/ residual R sided paraplegia and aphasia, seizure disorder on keppra 2000mg bid/oxcarbazepine 300mg bid, DM with peripheral neuropathy, who presents to the ED via EMS with c/o R foot injury. Patient is a resident of [facility]. Per nursing report, patient had a seizure yesterday and fell onto his right side. He is unsure if he hit his head. He complained of pain to his right foot today. X-rays were performed at the senior living which showed a possible 1st metatarsal fracture, needing more views. Patient also underwent x-rays of his R tib/fib, R hip, pelvis, R forearm, R humerus, R shoulder, which were negative. He was then sent here for further evaluation. Patient denies any other pain at this time. He is wheelchair-bound at baseline. Denies numbness or tingling. Reports chronic swelling to BLE. He is on lasix 40mg daily. Related Data Home Medications Medication Instructions Recorded Confirmed acetaminophen 650 mg 650 mg PO Q6H PRN Pain (Scale 05/03/23 05/03/23 tablet,extended release Score 1-3) amlodipine 10 mg tablet 10 mg PO DAILY 05/03/23 05/03/23 apixaban 2.5 mg tablet (Eliquis) 2.5 mg PO BID 05/03/23 05/03/23 bisacodyl 5 mg tablet 10 mg PO DAILY 05/03/23 05/03/23 calcium carbonate 550 mg chewable 1,100 mg PO DAILY 05/03/23 05/03/23 tablet clonidine HCl 0.1 mg tablet 0.1 mg PO BID 05/03/23 05/03/23 dexamethasone 6 mg tablet 6 mg PO DAILY 05/03/23 05/03/23 duloxetine 30 mg capsule,delayed 30 mg PO DAILY 05/03/23 05/03/23 release famotidine 20 mg tablet 20 mg PO DAILY 05/03/23 05/03/23 fluticasone propionate 50 50 mcg intranasal BID 05/03/23 05/03/23 mcg/actuation nasal spray,suspension furosemide 20 mg tablet 20 mg PO DAILY 05/03/23 05/03/23 gabapentin 300 mg capsule 300 mg PO BID 05/03/23 05/03/23 hydralazine 50 mg tablet 50 mg PO TID 05/03/23 05/03/23 insulin glargine 100 unit/mL (3 35 unit subcut DAILY 05/03/23 05/03/23 mL) subcutaneous pen (Lantus Solostar U-100 Insulin) insulin lispro 100 unit/mL 15 unit subcut TID 05/03/23 05/03/23 subcutaneous pen (Humalog KwikPen (U-100) Insulin) lactulose 10 gram/15 mL oral 15 ml PO BID PRN Constipation 05/03/23 05/03/23 solution lanolin alcohols-mineral 1 applic topical BID 05/03/23 05/03/23 oil-w.petrolatum-ceresin topical cream (Eucerin topical cream) levetiracetam 1,000 mg tablet 2,000 mg PO BID 05/03/23 05/03/23 magnesium oxide 400 mg PO DAILY 05/03/23 05/03/23 nystatin 100,000 unit/gram topical 1 applic topical BID 05/03/23 05/03/23 powder oxcarbazepine 300 mg tablet 300 mg PO BID 05/03/23 05/03/23 polyethylene glycol 3350 17 gram 17 g PO DAILY 05/03/23 05/03/23 oral powder packet (Miralax) potassium chloride 20 mEq 10 meq PO DAILY 05/03/23 05/03/23 tablet,extended release(part/cryst) rizatriptan 10 mg tablet 10 mg PO PRN PRN Migraine Headache 05/03/23 05/03/23 sennosides 8.6 mg capsule (senna) 8.6 mg PO BID PRN Constipation 05/03/23 05/03/23 vitamin B complex (B 1 tablet PO DAILY 05/03/23 05/03/23 Complex-Vitamin B12 tablet) Allergies Allergy/AdvReac Type Severity Reaction Status Date / Time No Known Allergies Allergy Verified 05/03/23 05:30 Review of Systems Review of Systems: CONSTITUTIONAL: Denies fever, chills, or sweats. MUSCULOSKELETAL: See HPI. NEUROLOGIC: See HPI. All systems reviewed & are unremarkable except as noted in HPI and below FOR[facility]LY [facility] Past Medical History Medical History Aphasia Brain cancer tumor resection 2017 - still some residual which presumably caused CVA 2021 Constipation COPD (chronic obstructive pulmonary dise
== END 2023-09-21 16:31 ==
PROVIDERS: Emergency Provider Physician Assistant; PCP Family Medicine
DX: S92.514A Nondisplaced fracture of proximal phalanx of right lesser toe(s), initial encounter for closed fracture (principal); G40.909 Epilepsy, unspecified, not intractable, without status epilepticus; I69.920 Aphasia following unspecified cerebrovascular disease; I69.951 Hemiplegia and hemiparesis following unspecified cerebrovascular disease affecting right dominant side; K21.9 Gastro-esophageal reflux disease without esophagitis; E78.5 Hyperlipidemia, unspecified; E11.9 Type 2 diabetes mellitus without complications; G47.33 Obstructive sleep apnea (adult) (pediatric); Z99.3 Dependence on wheelchair; Z85.841 Personal history of malignant neoplasm of brain; Z79.01 Long term (current) use of anticoagulants; Z79.4 Long term (current) use of insulin; W18.39XA Other fall on same level, initial encounter
CPT/HCPCS: 70450; 72125; 73630; 99284

== ENCOUNTER 2023-10-26 13:11 | Emergency (ER) | payer MEDICARE, SELFPAY ==
--- NOTE | ~2023-10-26 | XR_ITS ---
XR chest 1V DATE: 10/26/2023 13:52 INDICATION: Fall TECHNIQUE: AP chest COMPARISON: 05/03/2023 portable supine AP chest FINDINGS: There is suboptimal expansion of the lungs. No pulmonary infiltrate or consolidation, pleur al effusion or pulmonary vascular congestion or pneumothorax is evident. The heart and mediastinum appear unremarkable on this single AP view. Degenerative changes of the thoracic and lumbar spine. IMPRESSION: No active cardiopulmonary disease is evident on this limited single AP view. Reviewed, dictated and finalized at location [facility].
--- NOTE | ~2023-10-26 | CT_ITS ---
EXAMINATION: CT cervical spine wo con DATE: 10/26/2023 13:50 INDICATION: Fall. TECHNIQUE: Computed tomography (CT) of the cervical spine was performed without intravenous contrast. Automated exposure control and iterative reconstruction technique were employed. Exam dose: 608.20 mGy-cm total exam DLP. COMPARISON: None FINDINGS: There is straightening and mild reversal of cervical curvature which may be due to spasm an d/or positioning. Normal atlantoaxial alignment. C1 and C2 are normally aligned and the odontoid process is intact. There is severe degenerative disease at C3-4, C4-5, C5-6 and C6-7 there is prominent uncovertebral blayne int spurring as well at these levels. There is degenerative change of the apophyseal joints throughout the cervical spine, severe on the le ft at C2-3. No fracture or dislocation or walked facet or prevertebral soft tissue swelling. No cerebral mass lesion or adenopathy is noted. The lung apices appear clear. IMPRESSION: Mild reversal cervical curvature which may be due to muscle spasm Severe cervical spondylosis No fracture or dislocation or locked facet Reviewed, dictated and finalized at [facility]. Reviewed, dictated and finalized at location [facility].
--- NOTE | ~2023-10-26 | CT_ITS ---
EXAMINATION: CT brain wo con DATE: 10/26/2023 13:49 INDICATION: Fall. Right forehead laceration. TECHNIQUE: Computed tomography (CT) of the head was performed without intravenous contrast. The mA wa s adjusted according to patient size. Iterative reconstruction technique was employed. Exam dose: 60 5.33 mGy-cm total exam DLP. COMPARISON: 09/21/2023 CT brain 05/20/2023 CT brain FINDINGS: There is chronic encephalomalacia and extensive patchy calcifications of the left thalamus, insula and much of the distribution of the left middle cerebral artery territory in the left cerebra l hemisphere including areas in the frontal, parietal, temporal and occipital areas. No other significant change is noted since 05/03/2023. No intracranial mass lesion, hemorrhage, midlin e shift or mass effect is noted otherwise. No subdural or dural hematoma is detected. Status post left parietal craniotomy with bone flap secured by plates and screws. No fracture or bone destruction of the cranial vault. The mastoid air cells and included paranasal si nuses are normally developed and aerated. IMPRESSION: No significant change; stable extensive encephalomalacia and calcifications on the left since 05/03/20 Reviewed, dictated and finalized at [facility]. Reviewed, dictated and finalized at location [facility]. IMPRESSION: No significant change; stable extensive encephalomalacia and calcifications on the left since 05/03/2023
[2023-10-26 13:12] VITALS: BP 170/95; PULSE 82; RESP 97; TEMP 36.8; O2SAT 96
--- NOTE | 2023-10-26 13:23 | ED.FALL ---
HPI - Fall General Chief Complaint: Fall Stated Complaint: fall Time Seen by Provider: 10/26/23 13:12 History of Present Illness HPI Narrative: 63 years old white male came from [facility] by ambulance status post fall. History of diabetes, right hemiplegia, using a motor scooter, need executive chef assistant to get of the scooter and go back to it, patient was sitting on the toilet for a while, kept calling the staff to help him to get up without response, patient decided to stand up and help himself to the scooter, lost balance and fell, denying any pain, loss of consciousness. Right side scalp laceration, not actively bleeding. Patient on anticoagulant medication Related Data Home Medications Medication Instructions Recorded Confirmed acetaminophen 650 mg 650 mg PO Q6H PRN Pain (Scale 05/03/23 05/03/23 tablet,extended release Score 1-3) amlodipine 10 mg tablet 10 mg PO DAILY 05/03/23 05/03/23 apixaban 2.5 mg tablet (Eliquis) 2.5 mg PO BID 05/03/23 05/03/23 bisacodyl 5 mg tablet 10 mg PO DAILY 05/03/23 05/03/23 calcium carbonate 550 mg chewable 1,100 mg PO DAILY 05/03/23 05/03/23 tablet clonidine HCl 0.1 mg tablet 0.1 mg PO BID 05/03/23 05/03/23 dexamethasone 6 mg tablet 6 mg PO DAILY 05/03/23 05/03/23 duloxetine 30 mg capsule,delayed 30 mg PO DAILY 05/03/23 05/03/23 release famotidine 20 mg tablet 20 mg PO DAILY 05/03/23 05/03/23 fluticasone propionate 50 50 mcg intranasal BID 05/03/23 05/03/23 mcg/actuation nasal spray,suspension furosemide 20 mg tablet 20 mg PO DAILY 05/03/23 05/03/23 gabapentin 300 mg capsule 300 mg PO BID 05/03/23 05/03/23 hydralazine 50 mg tablet 50 mg PO TID 05/03/23 05/03/23 insulin glargine 100 unit/mL (3 35 unit subcut DAILY 05/03/23 05/03/23 mL) subcutaneous pen (Lantus Solostar U-100 Insulin) insulin lispro 100 unit/mL 15 unit subcut TID 05/03/23 05/03/23 subcutaneous pen (Humalog KwikPen (U-100) Insulin) lactulose 10 gram/15 mL oral 15 ml PO BID PRN Constipation 05/03/23 05/03/23 solution lanolin alcohols-mineral 1 applic topical BID 05/03/23 05/03/23 oil-w.petrolatum-ceresin topical cream (Eucerin topical cream) levetiracetam 1,000 mg tablet 2,000 mg PO BID 05/03/23 05/03/23 magnesium oxide 400 mg PO DAILY 05/03/23 05/03/23 nystatin 100,000 unit/gram topical 1 applic topical BID 05/03/23 05/03/23 powder oxcarbazepine 300 mg tablet 300 mg PO BID 05/03/23 05/03/23 polyethylene glycol 3350 17 gram 17 g PO DAILY 05/03/23 05/03/23 oral powder packet (Miralax) potassium chloride 20 mEq 10 meq PO DAILY 05/03/23 05/03/23 tablet,extended release(part/cryst) rizatriptan 10 mg tablet 10 mg PO PRN PRN Migraine Headache 05/03/23 05/03/23 sennosides 8.6 mg capsule (senna) 8.6 mg PO BID PRN Constipation 05/03/23 05/03/23 vitamin B complex (B 1 tablet PO DAILY 05/03/23 05/03/23 Complex-Vitamin B12 tablet) Allergies Allergy/AdvReac Type Severity Reaction Status Date / Time No Known Allergies Allergy Verified 05/03/23 05:30 Review of Systems Review of Systems: All systems reviewed & are unremarkable except as noted in HPI and below PMFSH Past Medical History Medical History Aphasia Brain cancer tumor resection 2017 - still some residual which presumably caused CVA 2021 Constipation COPD (chronic obstructive pulmonary disease) 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
[2023-10-26 13:32] VITALS: BP 157/90; PULSE 80; RESP 13; O2SAT 90
[2023-10-26] MEDS: TETANUS,DIPHTHERIA,AC PERTUSSIS ADULT (0.5 ML) BOOSTRIX IM (14:28)
[2023-10-26 14:30] VITALS: PULSE 80; RESP 14; O2SAT 95
--- NOTE | 2023-10-26 14:56 | PC.NURSE ---
Zoë at [facility] called for report upon patient disposition
== END 2023-10-26 15:20 ==
PROVIDERS: Emergency Provider Emergency Medicine; PCP Family Medicine
DX: S01.01XA Laceration without foreign body of scalp, initial encounter (principal); Z23 Encounter for immunization; I69.921 Dysphasia following unspecified cerebrovascular disease; I69.953 Hemiplegia and hemiparesis following unspecified cerebrovascular disease affecting right non-dominant side; I69.920 Aphasia following unspecified cerebrovascular disease; I10 Essential (primary) hypertension; E78.5 Hyperlipidemia, unspecified; E11.9 Type 2 diabetes mellitus without complications; K21.9 Gastro-esophageal reflux disease without esophagitis; G47.33 Obstructive sleep apnea (adult) (pediatric); Z85.841 Personal history of malignant neoplasm of brain; Z79.4 Long term (current) use of insulin; Z79.01 Long term (current) use of anticoagulants; M47.812 Spondylosis without myelopathy or radiculopathy, cervical region; W18.39XA Other fall on same level, initial encounter
CPT/HCPCS: 70450; 71045; 72125; 90471; 90715; 99284

== ENCOUNTER 2023-12-27 22:53 | Emergency (ER) | payer MEDICARE, SELFPAY ==
--- NOTE | ~2023-12-27 | CT_ITS ---
EXAMINATION: CT brain wo con DATE: 12/28/2023 00:09 INDICATION: Anticoagulated patient found face down post fall TECHNIQUE: Computed tomography (CT) of the head was performed without intravenous contrast. Sagittal and coronal reconstructions were performed. The mA was adjusted according to patient size. Iterative reconstruction technique was employed. The dose-length product was 681.00 mGy-cm. COMPARISON: head CT dated 10/26/2023 FINDINGS: No fracture. Chronic encephalomalacia and symmetric calcification at the left frontotemporoparietal r egion extending to the left insula and thalamus. Overlying craniotomy with plate and screw fixation. No acute intracranial hemorrhage, acute infarction or abnormal extra axial fluid collection. There is mild scattered white matter hypoattenuation consistent with chronic small vessel ischemic disease. S ymmetric prominence of the sulci and and subarachnoid spaces overlying the convexities consistent wit h mild age-appropriate diffuse cerebral volume loss. Ventricles are normal and symmetric. No mass/mas s effect. The orbits, paranasal sinuses and mastoid air cells are normal. IMPRESSION: 1. No fracture or acute intracranial process. 2. Region of chronic encephalomalacia with associated calcifications in the left frontotemporoparieta l region, left insula and left thalamus with overlying craniotomy which could represent sequela prior infarct or surgery. Correlate with clinical history. Reviewed, dictated and finalized at location [facility]. IMPRESSION: 1. No fracture or acute intracranial process. 2. Region of chronic encephalomalacia with associated calcifications in the lef t frontotemporoparietal region, left insula and left thalamus with overlying cr aniotomy which could represent sequela prior infarct or surgery. Correlate with clinical history.
--- NOTE | ~2023-12-27 | CT_ITS ---
EXAMINATION: CT cervical spine wo con DATE: 12/28/2023 00:09 INDICATION: Found down post fall. TECHNIQUE: Computed tomography (CT) of the cervical spine was performed without intravenous contrast. Automated exposure control and iterative reconstruction technique were employed. The dose-length pro duct was 564.94 mGy-cm. COMPARISON: None FINDINGS: There is straightening of the normal cervical lordosis which is likely positional. No spondylolisthes is or facet subluxation. Mild osteoarthritis at the atlantoaxial articulation. Vertebral body heights are normal. No fracture. Severe disc height loss with degenerative endplate changes and severe uncov ertebral osteoarthritis at C3-C4 through C6-C7. Posterior disc osteophyte complexes resulting in mild central canal stenosis at each of these levels. Moderate disc height loss at C2-C3, T1-T2 and T2-3 a nd mild disc height loss at C7-T1. Severe facet osteoarthritis on the left at C2-C3. Multilevel moder ate and mild facet osteoarthritis throughout the remainder of the cervical spine. Moderate neural for aminal stenosis on the right at C5-C6 and C6-7 and on the left at C3-C4 through C5-C6 with mild neura l from stenosis at the remaining cervical levels. Cervical soft tissues are normal. Mild mosaic atten uation at the apices likely related to expiratory phase of imaging. IMPRESSION: 1. Severe cervical spondylosis. No acute osseous abnormality. Reviewed, dictated and finalized at location A.
[2023-12-27 22:53] VITALS: BP 145/85; PULSE 85; RESP 17; TEMP 37.1; O2SAT 97
--- NOTE | 2023-12-27 23:11 | ECG_ITS ---
Test Date: 2023-12-27 23:35:14 Measurements Intervals [place] Rate: 74 P: 83 FL: 193 QRS: -4 QRSD: 119 T: 24 QT: 419 QTc: 468 Interpretive Statements SINUS RHYTHM WITH OCCASIONAL SUPRAVENTRICULAR PREMATURE COMPLEXES MODERATE INTRAVENTRICULAR CONDUCTION DELAY [110+ ms QRS DURATION] VOLTAGE CRITERIA FOR LVH [MEETS CRITERIA IN ONE OF: R(aVL), S(V1), R(V5), R(V5/V6)+S(V1)] NONSPECIFIC T-WAVE ABNORMALITY No previous ECG available for comparison Electronically Signed On 12-28-2023 11:20:17 CDT by Varun Craig M.D.
[2023-12-27 23:16] VITALS: BP 159/80; PULSE 90; RESP 17; O2SAT 98
[2023-12-27 23:27] VITALS: PULSE 80
[2023-12-27 23:31] VITALS: BP 144/93; PULSE 80; RESP 14; O2SAT 96
[2023-12-27 23:40] LABS: Basophils Absolute Auto 0.1 K/mm3 (0.0-0.1); Basophils Percent Auto 0.4 % (0.2-1.2); Eosinophils Percent Auto 0.2 % (0-4.4); Hematocrit 37.1 % (42.0-52.0); Hemoglobin 12.3 g/dL (14.0-18.0); Immature Granulocyte Absolute 0.32 K/mm3 (0.00-0.031); Immature Granulocyte Percent A 2.8 % (0-0.5); Lymphocytes Absolute Auto 1.05 K/mm3 (0.9-3.2); Lymphocytes Percent Auto 9.1 % (18.3-44.2); Mean Corpuscular HGB Conc 33.2 g/dl (32-36); Mean Corpuscular Hemoglobin 29.6 pg (26-34); Mean Corpuscular Volume 89.2 fl (80-100); Mean Platelet Volume 8.7 fl (7.4-10.4); Monocytes Absolute Auto 1.1 K/mm3 (0.1-0.6); Monocytes Percent Auto 9.1 % (2.6-8.5); Neutrophils Absolute Auto 9.1 K/mm3 (1.3-6.7); Neutrophils Percent Auto 78.4 % (45.5-73.1); Platelet Count Result 190 k/mm3 (150-375); Red Blood Count 4.16 M/mm3 (4.6-6.20); Red Cell Distribution Width 13.9 % (11.5-14.5); White Blood Count 11.6 K/mm3 (4.5-10.0)
[2023-12-27 23:46] VITALS: BP 139/90; PULSE 78; RESP 15; O2SAT 93
[2023-12-27 23:50] LABS: Alanine Aminotransferase 28 U/L (6-50); Albumin Level 4.3 g/dL (3.5-5.1); Alkaline Phosphatase 69 U/L (38-126); Anion Gap 8 mmol/L (4-12); Aspartate Amino Transferase 20 U/L (17-59); Bilirubin,Total 0.4 mg/dL (0.2-1.3); Blood Urea Nitrogen 52 mg/dL (9-20); Carbon Dioxide 34 mmol/L (22-30); Chloride 94 mmol/L (98-107); Estimated CRCL calculation 42 ml/min; Estimated Glomerular Filt Rate 38; Glucose 157 mg/dL (65-110); Potassium 3.1 mmol/L (3.4-5.0); Sodium 136 mmol/L (137-145)
[2023-12-28 00:13] LABS: Troponin I < 0.012 ng/mL (0.000-0.034)
[2023-12-28] MEDS: SODIUM CHLORIDE 0.9% IV 1,000 ML 999 ML IV CONT (01:45)
[2023-12-28 02:21] LABS: Appearance Urine Clear (Clear); Bilirubin Urine Negative (Negative); Blood Urine Negative (Negative); Color Urine Yellow (Yellow); Glucose Urine UA Negative (Negative); Ketones Urine Negative (Negative); Leukocyte Esterase Ur Negative LEU/UL (Negative); Nitrate Urine Negative (Negative); Protein Urine Negative (Negative); Specific Grav Ur 1.012 (1.001-1.035); Urobilinogen Urine 0.2 mg/dL (<2.0); pH Urine 6.5 (5.0-9.0)
[2023-12-28 02:32] LABS: Add Urine Microscopic? NO
--- NOTE | 2023-12-28 02:33 | ED.GENADULT ---
HPI - General Adult General Chief complaint: Syncope Stated complaint: syncope x 4 min Time Seen by Provider: 12/27/23 23:32 History of Present Illness HPI narrative: Patient is 63-year-old gentleman who presents emergency department chief complaint of syncopal episode. The patient has prior history of stroke with left-sided paralysis and aphasia patient was found face down after he fell out of a chair patient reports that he is currently not having any pain but was on Eliquis at the nursing facility. Related Data Home Medications Medication Instructions Recorded Confirmed acetaminophen 650 mg 650 mg PO Q6H PRN Pain (Scale 05/03/23 05/03/23 tablet,extended release Score 1-3) amlodipine 10 mg tablet 10 mg PO DAILY 05/03/23 05/03/23 apixaban 2.5 mg tablet (Eliquis) 2.5 mg PO BID 05/03/23 05/03/23 bisacodyl 5 mg tablet 10 mg PO DAILY 05/03/23 05/03/23 calcium carbonate 550 mg chewable 1,100 mg PO DAILY 05/03/23 05/03/23 tablet clonidine HCl 0.1 mg tablet 0.1 mg PO BID 05/03/23 05/03/23 dexamethasone 6 mg tablet 6 mg PO DAILY 05/03/23 05/03/23 duloxetine 30 mg capsule,delayed 30 mg PO DAILY 05/03/23 05/03/23 release famotidine 20 mg tablet 20 mg PO DAILY 05/03/23 05/03/23 fluticasone propionate 50 50 mcg intranasal BID 05/03/23 05/03/23 mcg/actuation nasal spray,suspension furosemide 20 mg tablet 20 mg PO DAILY 05/03/23 05/03/23 gabapentin 300 mg capsule 300 mg PO BID 05/03/23 05/03/23 hydralazine 50 mg tablet 50 mg PO TID 05/03/23 05/03/23 insulin glargine 100 unit/mL (3 35 unit subcut DAILY 05/03/23 05/03/23 mL) subcutaneous pen (Lantus Solostar U-100 Insulin) insulin lispro 100 unit/mL 15 unit subcut TID 05/03/23 05/03/23 subcutaneous pen (Humalog KwikPen (U-100) Insulin) lactulose 10 gram/15 mL oral 15 ml PO BID PRN Constipation 05/03/23 05/03/23 solution lanolin alcohols-mineral 1 applic topical BID 05/03/23 05/03/23 oil-w.petrolatum-ceresin topical cream (Eucerin topical cream) levetiracetam 1,000 mg tablet 2,000 mg PO BID 05/03/23 05/03/23 magnesium oxide 400 mg PO DAILY 05/03/23 05/03/23 nystatin 100,000 unit/gram topical 1 applic topical BID 05/03/23 05/03/23 powder oxcarbazepine 300 mg tablet 300 mg PO BID 05/03/23 05/03/23 polyethylene glycol 3350 17 gram 17 g PO DAILY 05/03/23 05/03/23 oral powder packet (Miralax) potassium chloride 20 mEq 10 meq PO DAILY 05/03/23 05/03/23 tablet,extended release(part/cryst) rizatriptan 10 mg tablet 10 mg PO PRN PRN Migraine Headache 05/03/23 05/03/23 sennosides 8.6 mg capsule (senna) 8.6 mg PO BID PRN Constipation 05/03/23 05/03/23 vitamin B complex (B 1 tablet PO DAILY 05/03/23 05/03/23 Complex-Vitamin B12 tablet) Allergies Allergy/AdvReac Type Severity Reaction Status Date / Time No Known Allergies Allergy Verified 05/03/23 05:30 Review of Systems Review of Systems: A 10 system review of systems was completed on the patient and is negative except for what is stated in the HPI. Nursing and ancillary documentation was reviewed. 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
[2023-12-28 04:37] VITALS: BP 145/88; PULSE 87; RESP 18; O2SAT 97
== END 2023-12-28 06:48 ==
PROVIDERS: Emergency Provider Emergency Medicine; PCP Family Medicine
DX: R55 Syncope and collapse (principal); I69.320 Aphasia following cerebral infarction; I69.354 Hemiplegia and hemiparesis following cerebral infarction affecting left non-dominant side; I10 Essential (primary) hypertension; E11.9 Type 2 diabetes mellitus without complications; E78.5 Hyperlipidemia, unspecified; F41.1 Generalized anxiety disorder; Z99.3 Dependence on wheelchair; Z85.841 Personal history of malignant neoplasm of brain; Z79.01 Long term (current) use of anticoagulants; Z79.899 Other long term (current) drug therapy; Z79.4 Long term (current) use of insulin
CPT/HCPCS: 36415; 70450; 72125; 80053; 81003; 83605; 83735; 84484; 85025; 93005; 96360; 99284; J7030

== ENCOUNTER 2024-06-01 20:30 | Emergency (ER) | payer MEDICARE, SELFPAY ==
--- NOTE | ~2024-06-01 | CT_ITS ---
CT brain wo con Ordering provider: Meir Carbajal MD History: 63 years Male with . history of GBM now with worsening pain . Comparison: December 27, 2023 Technique: CT of the head without contrast. Radiation reduction technique utilized. The dose-length p roduct was 681 mGy-cm FINDINGS: BRAIN PARENCHYMA AND CSF SPACES: Mild leukoaraiosis and diffuse cortical atrophy. Mild atheromatous d isease. Calcifications seen in the left parietal area unchanged from previous examination. Encephalom alacia seen in the same area. Slight widening of the subdural spaces is seen in the right side fronta l area unchanged from previous examination. CSF hygroma cannot be excluded. Slight ventricular dilata tion. No midline shift, mass effect or hemorrhage. The brain parenchyma and CSF spaces are otherwise normal. VISUALIZED PARANASAL SINUSES: Well aerated. MASTOIDS: Well aerated. BONES: Postoperative changes in the left parietal bone.. Otherwise, The bones appear intact. SOFT TISSUES: Visualized nasopharynx is normal. Superficial soft tissues are normal. IMPRESSION: No acute intracranial findings. Calcifications in the left parietal area unchanged from previous examination. Encephalomalacia in the left parieto-occipital area unchanged from previous examination. Slight widening of the right frontal subdural space. Possibility of CSF hygroma cannot be excluded Reviewed, dictated and finalized at location A. STRY RN IMPRESSION: No acute intracranial findings. Calcifications in the left parietal area unchanged from previous examination. Encephalomalacia in the left parieto-occipital area unchanged from previous exa mination. Slight widening of the right frontal subdural space. Possibility of CSF hygroma cannot be excluded
[2024-06-01 20:32] VITALS: BP 163/84; PULSE 87; RESP 14; TEMP 36.4; O2SAT 98
[2024-06-02] VITALS: BP 163/84; PULSE 87; RESP 14; TEMP 36.4; O2SAT 98
[2024-06-02 00:01] VITALS: BP 156/89; PULSE 82; RESP 17; O2SAT 96
[2024-06-02 01:29] VITALS: BP 129/80; PULSE 69; RESP 17; O2SAT 100
--- NOTE | 2024-06-02 02:09 | ED_ITS ---
HPI - General Adult General Chief complaint: Unspecified Stated complaint: R sided pain Time Seen by Provider: 06/02/24 00:33 History of Present Illness HPI narrative: patient is 63-year-old gentleman who presents emergency department with chief complaint of right-sided head pain. The patient has prior history of stroke and history of glioblastoma multiform at. Patient was sent to the emergency department today for a CT head to make sure that there was no bleeding in the brain or significant enlargement. Patient is followed at [facility] Medications Medication Instructions Recorded Confirmed acetaminophen 650 mg 650 mg PO Q6H PRN Pain (Scale 05/03/23 05/03/23 tablet,extended release Score 1-3) amlodipine 10 mg tablet 10 mg PO DAILY 05/03/23 05/03/23 apixaban 2.5 mg tablet (Eliquis) 2.5 mg PO BID 05/03/23 05/03/23 bisacodyl 5 mg tablet 10 mg PO DAILY 05/03/23 05/03/23 calcium carbonate 550 mg chewable 1,100 mg PO DAILY 05/03/23 05/03/23 tablet clonidine HCl 0.1 mg tablet 0.1 mg PO BID 05/03/23 05/03/23 dexamethasone 6 mg tablet 6 mg PO DAILY 05/03/23 05/03/23 duloxetine 30 mg capsule,delayed 30 mg PO DAILY 05/03/23 05/03/23 release famotidine 20 mg tablet 20 mg PO DAILY 05/03/23 05/03/23 fluticasone propionate 50 50 mcg intranasal BID 05/03/23 05/03/23 mcg/actuation nasal spray,suspension furosemide 20 mg tablet 20 mg PO DAILY 05/03/23 05/03/23 gabapentin 300 mg capsule 300 mg PO BID 05/03/23 05/03/23 hydralazine 50 mg tablet 50 mg PO TID 05/03/23 05/03/23 insulin glargine 100 unit/mL (3 35 unit subcut DAILY 05/03/23 05/03/23 mL) subcutaneous pen (Lantus Solostar U-100 Insulin) insulin lispro 100 unit/mL 15 unit subcut TID 05/03/23 05/03/23 subcutaneous pen (Humalog KwikPen (U-100) Insulin) lactulose 10 gram/15 mL oral 15 ml PO BID PRN Constipation 05/03/23 05/03/23 solution lanolin alcohols-mineral 1 applic topical BID 05/03/23 05/03/23 oil-w.petrolatum-ceresin topical cream (Eucerin topical cream) levetiracetam 1,000 mg tablet 2,000 mg PO BID 05/03/23 05/03/23 magnesium oxide 400 mg PO DAILY 05/03/23 05/03/23 nystatin 100,000 unit/gram topical 1 applic topical BID 05/03/23 05/03/23 powder oxcarbazepine 300 mg tablet 300 mg PO BID 05/03/23 05/03/23 polyethylene glycol 3350 17 gram 17 g PO DAILY 05/03/23 05/03/23 oral powder packet (Miralax) potassium chloride 20 mEq 10 meq PO DAILY 05/03/23 05/03/23 tablet,extended release(part/cryst) rizatriptan 10 mg tablet 10 mg PO PRN PRN Migraine Headache 05/03/23 05/03/23 sennosides 8.6 mg capsule (senna) 8.6 mg PO BID PRN Constipation 05/03/23 05/03/23 vitamin B complex (B 1 tablet PO DAILY 05/03/23 05/03/23 Complex-Vitamin B12 tablet) Allergies Allergy/AdvReac Type Severity Reaction Status Date / Time No Known Allergies Allergy Verified 06/01/24 20:41 Review of Systems Review of Systems: A 10 system review of systems was completed on the patient and is negative except for what is stated in the HPI. Nursing and ancillary documentation was reviewed. [facility] Past Medical History Medical History Aphasia Brain cancer tumor resection 2017 - still some residual which presumably caused CVA 2021 Constipation COPD (chronic obstructive pulmonary disease) 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ng: No Difficulty Paying Gas/Electric Bills: No Difficulty Paying for Meds: No Currently Unemployed: YES Education: Don't Know Living arrangements: intermediate Occupation/Education: retired Gender identity (if verbalized by the patient): Male Sexual Orientation (if Verbalized by the Patient): Straight or Heterosexual Spiritual care concerns: No Exam Narrative: GENERAL: Well-appearing, well-nourished, and in no acute distress. HEAD: Normocephalic, atraumatic. EYES: PERRLA and EOMI. ENT: Nares clear, no rhinorrhea or epistaxis. Mucous membranes moist. NECK: Supple. CHEST: Clear to auscultation. No respiratory distress. HEART: Regular rate and rhythm. No murmur heard. Normal peripheral pulses. ABDOMEN: Soft, nontender, nondistended, normal active bowel sounds. EXTREMITIES: Normal range of motion. No edema. SKIN: Warm, dry, no rash. NEURO: No new focal deficits. Alert and oriented x3. PSYCH: Normal mood and affect. Course Vital Signs Vital signs: Vital Signs Temperature 36.4 C L 06/01/24 20:32 Pulse Rate 87 06/01/24 20:32 Respiratory Rate 14 06/01/24 20:32 Blood Pressure 163/84 H 06/01/24 20:32 Pulse Oximetry 98 06/01/24 20:32 Oxygen Delivery Room Air 06/01/24 20:32 Temperature 36.4 C L 06/02/24 00:00 Pulse Rate 69 06/02/24 01:29 Respiratory Rate 17 06/02/24 01:29 Blood Pressure 129/80 06/02/24 01:29 Pulse Oximetry 100 06/02/24 01:29 Oxygen Delivery Room Air 06/02/24 00:00 Medical Decision Making MDM Narrative Medical decision making narrative: differential diagnosis includes intracranial hemorrhage, increased brain mass CT head shows no acute changes patient is currently asymptomatic Vital Signs Vital Signs: Vital Signs Temperature 36.4 C L 06/01/24 20:32 Pulse Rate 87 06/01/24 20:32 Respiratory Rate 14 06/01/24 20:32 Blood Pressure 163/84 H 06/01/24 20:32 Pulse Oximetry 98 06/01/24 20:32 Oxygen Delivery Room Air 06/01/24 20:32 Temperature 36.4 C L 06/02/24 00:00 Pulse Rate 69 06/02/24 01:29 Respiratory Rate 17 06/02/24 01:29 Blood Pressure 129/80 06/02/24 01:29 Pulse Oximetry 100 06/02/24 01:29 Oxygen Delivery Room Air 06/02/24 00:00 Discharge Plan Discharge Clinical Impression: Headache [facility] Living Condition: Stable Instructions: Antibiotic Form Prescriptions: No Action clonidine HCl 0.1 mg Tablet 0.1 mg PO BID polyethylene glycol 3350 [Miralax] 17 gram Powder In Packet 17 g PO DAILY dexamethasone 6 mg tablet 6 mg PO DAILY rizatriptan 10 mg tablet 10 mg PO PRN PRN (Reason: Migraine Headache) Rx Instructions: may repeat dose q 2h max dose 30 mg in 24 hours oxcarbazepine 300 mg tablet 300 mg PO BID acetaminophen 650 mg Tablet Extended Release 650 mg PO Q6H PRN (Reason: Pain (Scale Score 1-3)) potassium chloride 20 mEq tablet,ER particles/crystals 10 meq PO DAILY famotidine 20 mg Tablet 20 mg PO DAILY amlodipine 10 mg tablet 10 mg PO DAILY gabapentin 300 mg capsule 300 mg PO BID hydralazine 50 mg tablet 50 mg PO TID nystatin 100,000 unit/gram powder 1 applic TOPICAL BID Rx Instructions: apply to groin fluticasone propionate 50 mcg/actuation spray,suspension 50 mcg INTRANASAL BID calcium carbonate 550 mg Tablet,Chewable 1,100 mg PO DAILY bisacodyl 5 mg Tablet 10 mg PO DAILY insulin lispro [Humalog KwikPen Insulin] 100 unit/mL insulin pen 15 unit SUBCUT TID senna 8.6 mg Capsule 8.6 mg PO BID PRN (Reason: Constipation) duloxetine 30 mg capsule,delayed release(DR/EC) 30 mg PO DAILY levetiracetam 1,000 mg tablet 2,000 mg PO BID insulin glargine [Lantus Solostar U-100 Insulin] 100 unit/mL (3 mL) insulin pen 35 unit SUBCUT DAILY Eucerin Cream 1 applic TOPICAL BID Rx Instructions: apply to lowe legs Eliquis 2.5 mg tablet 2.5 mg PO BID magnesium oxide 400 mg magnesium Tablet 400 mg PO DAILY vitamin B complex [B Complex-Vitamin B12] Tablet 1 tablet PO DAILY furosemide 20 mg tablet 20 mg PO DAILY lactulose 10 gram/15 mL solution 15 ml PO BID PRN (Reason: Constipation) oxycodone-acetaminophen 5-325 mg tablet 1 - 2 tablet PO Q4-6H MDD 6 PRN (Reason: pain) Qty: 30 0RF Follow-up/Referrals: Carlos Enrique Taylor MD [Primary Care Provider] - Time of Disposition: 02:13
[2024-06-02 03:29] VITALS: BP 157/96; PULSE 63; RESP 17; O2SAT 95
[2024-06-02 04:00] VITALS: BP 129/80; PULSE 64; RESP 17; O2SAT 17
--- NOTE | 2024-06-02 04:02 | PC.NURSE ---
Spoke with Ac (nurse @ [facility]) and informed him that pt has been dc and is currently waiting for transport arrival at 0700.
[2024-06-02 05:41] VITALS: BP 145/82; PULSE 60; RESP 17; O2SAT 95
--- NOTE | 2024-06-02 07:23 | PC.NURSE ---
Report given to CRISTOPHER Newell. No questions at this time.
== END 2024-06-02 09:32 ==
PROVIDERS: Emergency Provider Emergency Medicine; PCP Family Medicine
DX: R51.9 Headache, unspecified (principal); Z85.841 Personal history of malignant neoplasm of brain; Z79.01 Long term (current) use of anticoagulants; Z79.4 Long term (current) use of insulin; E78.5 Hyperlipidemia, unspecified; G47.33 Obstructive sleep apnea (adult) (pediatric); E11.9 Type 2 diabetes mellitus without complications; Z99.3 Dependence on wheelchair; I10 Essential (primary) hypertension; I69.390 Apraxia following cerebral infarction; I69.351 Hemiplegia and hemiparesis following cerebral infarction affecting right dominant side; I69.391 Dysphagia following cerebral infarction; R13.10 Dysphagia, unspecified
CPT/HCPCS: 70450; 99284

== ENCOUNTER 2024-10-09 07:15 | Outpatient (CLI) | payer MEDICARE, SELFPAY ==
--- NOTE | ~2024-10-09 | CT_ITS ---
CT scan of the right foot Clinical history a soft tissue swelling TECHNIQUE: Following intravenous administration of 100 cc of Omnipaque 350 contrast internal, axial i maging of the right foot was performed. Sagittal and coronal reformatted images were constructed. Dos e reduction technique was used on this scan by utilizing automated exposure control and iterative rec onstruction technique. The dose-length product (DLP) was 576.25 mGy-cm. Findings: There is somewhat heterogeneous mottled lucent appearance throughout the visualized osseous structures, most likely representing osteoporosis/osteopenia. No definite aggressive lesion seen, an d there is no distinct cortical destruction, periosteal reaction, or associated soft tissue mass. Vis ualized joint spaces are well preserved, without significant degenerative or erosive change. There is marked subcutaneous soft tissue edema over the dorsal aspect of the foot with extensive circ umferential soft tissue edema about the ankle. No definite focal fluid collection or soft tissue mass identified. IMPRESSION: Marked subcutaneous soft tissue edema circumferentially about the ankle and over the dorsum of the fo ot. No focal fluid collection evident. Correlate for CHF or other fluid overload status. Heterogeneously lucent appearance of the bones is most likely due to osteopenia/osteoporosis. Reviewed, dictated and finalized at location . IMPRESSION: Marked subcutaneous soft tissue edema circumferentially about the ankle and ove r the dorsum of the foot. No focal fluid collection evident. Correlate for CHF or other fluid overload status. Heterogeneously lucent appearance of the bones is most likely due to osteopenia /osteoporosis.
--- OUTSIDE RECORDS SUMMARY | 2024-10-09 07:20 | XMS_ITS | Encounter Summary ---
Author Organization [facility] Facility Care Team Providers Care Scientific Systems Analyst Name Role Phone Lan Doss MD Primary Care Provider [phone] Lan Doss MD Primary Care Provider [phone] Lan Doss MD Unavailable [phone] Travon Stevens MD Unavailable Deshawn Penaloza MD Unavailable [phone] Nina Flores MD Unavailable [phone] Jane Urrutia MA Unavailable [phone] Jen Ramos LPN Unavailable [phone] Encounter Details Date Type Department Care Team (Latest Contact Info) Description 10/29/2016 Orders Only [facility] CLINCONV ProviderTerri MD [address] [place] [address] Social History Tobacco Use Types Packs/Day Years Used Date Smoking Tobacco: Never Assessed Sex and Gender Information Value Date Recorded Sex Assigned at Not on file Legal Sex Male 7:15 PM FRESH MEAT GRADER Gender Identity Not on file Sexual Orientation Straight 08/31/2021 4: 21 PM FRESH MEAT GRADER documented as of this encounter Plan of Treatment Not on file documented as of this encounter Procedures Procedure Name Priority Date/Time Associated Diagnosis Comments SCAN - LABS 10/30/2016 12:00 AM CDT documented in this encounter Results * SCAN - LABS (10/30/2016 12:00 AM CDT) Narrative 10/30/2016 12:00 AM CDT Ordered by an unspecified provider. us Historical Provider Final Res ult documented in this encounter Visit Diagnoses Not on filedocumented in this encounter Additional Health Concerns Infection Onset Date Last Indicated Resolved Time COVID: Suspected 03/28/2021 03/28/2021 03/28/2021 3:11 AM CDT Exposure, COVID-19 Comment:Added automatically based on COVID19 lab answers indicating exposure risk 07/11/2021 07/11/2021 07/11/2021 8:[address] COVID: Suspected 07/11/2021 07/11/2021 07/11/2021 8:04 AM FRESH MEAT GRADER COVID19 07/11/2021 07/11/2021 07/25/2021 3:05 AM FRESH MEAT GRADER COVID: Recovered Comment:Added based on recent COVID infection. 07/25/2021 08/07/2021 11/22/2021 3:05 AM C DT documented as of this encounter Care Teams Scientific Systems Analyst Relationship Specialty Start Date End Date Lan Doss MD PCP - General 06/27/18 08/22/21 Lan Doss MD PCP - General Family Medicine 08/23/21 Lan Doss MD 08/23/21 Travon Stevens MD Medical Oncologist/Direct Marketing Coordinator Medical Oncology 11/11/18 Deshawn Penaloza MD Surgeon Neurosurgery 01/23/19 Nina Flores MD Radiation Oncologist Radiation Oncology 01/23/19 Jane Urrutia MA [address] [place] [address] ACO Care Clinic Business Manager 10/05/21 10/06/21 Jen Ramos LPN [address] [place] [address] Christian Ministries Professor 09/06/22 09/16/22 documented as of this encounter
--- OUTSIDE RECORDS SUMMARY | 2024-10-09 07:20 | XMS_ITS | Encounter Summary ---
Author Organization [facility] Facility Care Team Providers Care Podiatric Physician Name Role Phone Lan Doss MD Primary Care Provider [phone] Lan Doss MD Primary Care Provider [phone] Lan Doss MD Unavailable [phone] Travon Stevens MD Unavailable Deshawn Penaloza MD Unavailable [phone] Nina Flores MD Unavailable Jane Urrutia MA Unavailable [phone] Jen Ramos LPN Unavailable [phone] Encounter Details Date Type Department Care Team (Latest Contact Info) Description 04/24/2016 Orders Only [facility] CLINCONV ProviderTerri MD [address] [place] [address] Social History Tobacco Use Types Packs/Day Years Used Date Smoking Tobacco: Never Assessed Sex and Gender Information Value Date Recorded Sex Assigned at Not on file Legal Sex Male 7:15 PM PROFESSIONAL APPLICATION DESIGNER Gender Identity Not on file Sexual Orientation Straight 08/31/2021 4: 21 PM PROFESSIONAL APPLICATION DESIGNER documented as of this encounter Plan of Treatment Not on file documented as of this encounter Procedures Procedure Name Priority Date/Time Associated Diagnosis Comments SCAN - LABS 04/25/2016 12:00 AM CDT documented in this encounter Results * SCAN - LABS (04/25/2016 12:00 AM CDT) Narrative 04/25/2016 12:00 AM CDT Ordered by an unspecified [...] COVID: Suspected 07/11/2021 07/11/2021 07/11/2021 8:04 AM PROFESSIONAL APPLICATION DESIGNER COVID19 07/11/2021 07/11/2021 07/25/2021 3:05 AM PROFESSIONAL APPLICATION DESIGNER COVID: Recovered Comment:Added based on recent COVID infection. 07/25/2021 08/07/2021 11/22/2021 3:05 AM C DT documented as of this encounter Care Teams Podiatric Physician Relationship Specialty Start Date End Date Lan Doss MD PCP - General 06/27/18 08/22/21 Lan Doss MD PCP - General Family Medicine 08/23/21 Lan Doss MD 08/23/21 Travon Stevens MD Medical Oncologist/Manager Cable Medical Oncology 11/11/18 Deshawn Penaloza MD Surgeon Neurosurgery 01/23/19 Nina Flores MD Radiation Oncologist Radiation Oncology 01/23/19 Jane Urrutia MA [address] [place] [address] ACO Care Sprayer Leather 10/05/21 10/06/21 Jen Ramos LPN [address] [place] [address] Freelance Director 09/06/22 09/16/22 documented as of this encounter
--- OUTSIDE RECORDS SUMMARY | 2024-10-09 07:20 | XMS_ITS | Encounter Summary ---
Author Organization [facility] Facility Care Team Providers Care Flower Shop Manager Name Role Phone Lan Doss MD Primary Care Provider [phone] Lan Doss MD Primary Care Provider [phone] Lan Doss MD Unavailable [phone] Travon Stevens MD Unavailable Deshawn Penaloza MD Unavailable [phone] Nina Flores MD Unavailable Jane Urrutia MA Unavailable [phone] Jen Ramos LPN Unavailable [phone] Encounter Details Date Type Department Care Team (Latest Contact Info) Description 10/03/2015 Orders Only [facility] CLINCONV ProviderTerri MD [address] [place] [address] Social History Tobacco Use Types Packs/Day Years Used Date Smoking Tobacco: Never Assessed Sex and Gender Information Value Date Recorded Sex Assigned at Not on file Legal Sex Male 7:15 PM DIRECTOR CRAFT CENTER Gender Identity Not on file Sexual Orientation Straight 08/31/2021 4: 21 PM DIRECTOR CRAFT CENTER documented as of this encounter Plan of Treatment Not on file documented as of this encounter Procedures Procedure Name Priority Date/Time Associated Diagnosis Comments SCAN - LABS 10/04/2015 12:00 AM CDT documented in this encounter Results * SCAN - LABS (10/04/2015 12:00 AM CDT) Narrative 10/04/2015 12:00 AM CDT Ordered by an unspecified [...] COVID: Suspected 07/11/2021 07/11/2021 07/11/2021 8:04 AM DIRECTOR CRAFT CENTER COVID19 07/11/2021 07/11/2021 07/25/2021 3:05 AM DIRECTOR CRAFT CENTER COVID: Recovered Comment:Added based on recent COVID infection. 07/25/2021 08/07/2021 11/22/2021 3:05 AM C DT documented as of this encounter Care Teams Flower Shop Manager Relationship Specialty Start Date End Date Lan Doss MD PCP - General 06/27/18 08/22/21 Lan Doss MD PCP - General Family Medicine 08/23/21 Lan Doss MD 08/23/21 Travon Stevens MD Medical Oncologist/Channel Manager Medical Oncology 11/11/18 Deshawn Penaloza MD Surgeon Neurosurgery 01/23/19 Nina Flores MD Radiation Oncologist Radiation Oncology 01/23/19 Jane Urrutia MA [address] [place] [address] ACO Care Transitional Nurse 10/05/21 10/06/21 Jen Ramos LPN [address] [place] [address] Engineering Technical Analyst 09/06/22 09/16/22 documented as of this encounter
--- OUTSIDE RECORDS SUMMARY | 2024-10-09 07:20 | XMS_ITS | Encounter Summary ---
Author Organization [facility] Facility Care Team Providers Care Credit Balance Specialist Name Role Phone Lan Doss MD Primary Care Provider [phone] Lan Doss MD Primary Care Provider [phone] Lan Doss MD Unavailable [phone] Travon Stevens MD Unavailable Deshawn Penaloza MD Unavailable [phone] Nina Flores MD Unavailable [phone] Jane Urrutia MA Unavailable [phone] Jen Ramos LPN Unavailable [phone] Encounter Details Date Type Department Care Team (Latest Contact Info) Description 11/08/2015 Orders Only [facility] CLINCONV ProviderTerri MD [address] [place] [address] Social History Tobacco Use Types Packs/Day Years Used Date Smoking Tobacco: Never Assessed Sex and Gender Information Value Date Recorded Sex Assigned at Not on file Legal Sex Male 7:15 PM OIL SCOUT Gender Identity Not on file Sexual Orientation Straight 08/31/2021 4: 21 PM OIL SCOUT documented as of this encounter Plan of Treatment Not on file documented as of this encounter Procedures Procedure Name Priority Date/Time Associated Diagnosis Comments SCAN - LABS 11/09/2015 12:00 AM CDT documented in this encounter Results * SCAN - LABS (11/09/2015 12:00 AM CDT) Narrative 11/09/2015 12:00 AM CDT Ordered by an unspecified [...] COVID: Suspected 07/11/2021 07/11/2021 07/11/2021 8:04 AM OIL SCOUT COVID19 07/11/2021 07/11/2021 07/25/2021 3:05 AM OIL SCOUT COVID: Recovered Comment:Added based on recent COVID infection. 07/25/2021 08/07/2021 11/22/2021 3:05 AM C DT documented as of this encounter Care Teams Credit Balance Specialist Relationship Specialty Start Date End Date Lan Doss MD PCP - General 06/27/18 08/22/21 Lan Doss MD PCP - General Family Medicine 08/23/21 Lan Doss MD 08/23/21 Travon Stevens MD Medical Oncologist/Imaging Analyst Medical Oncology 11/11/18 Deshawn Penaloza MD Surgeon Neurosurgery 01/23/19 Nina Flores MD Radiation Oncologist Radiation Oncology 01/23/19 Jane Urrutia MA [address] [place] [address] ACO Care Data Systems Analyst 10/05/21 10/06/21 Jen Ramos LPN [address] [place] [address] Systems Coordinator 09/06/22 09/16/22 documented as of this encounter
--- OUTSIDE RECORDS SUMMARY | 2024-10-09 07:20 | XMS_ITS | Encounter Summary ---
Author Organization [facility] Healthcare Address [address] [place] [address] Care Team Providers Care Field Operations Supervisor Name Role Phone Lan Doss MD Primary Care Provider [phone] Lan Doss MD Primary Care Provider Lan Doss MD Unavailable [phone] Travon Stevens MD Unavailable [phone] Deshawn Penaloza MD Unavailable [phone] Jane Urrutia MA Unavailable [phone] Jen Ramos LPN Unavailable Encounter Details Date Type Department Care Team (Late st Contact Info) Description 01/20/2020 Telephone [facility] [address] [place] [address] Travon Stevens MD [address] [facility] [address] [place], [place] [id number] Social History Tobacco Use Types Packs/Day Years Used Date Smoking Tobacco: Never Smokeless Tobacco: Never Alcohol Use Standard Drinks/Week Comments Yes 0 (1 standard drink = 0.6 oz pur e alcohol) rare AUDIT-C Answer Date Recorded Frequency of Alcohol Consumption Monthly or less 07/20/2019 Average Number of Drinks 1 or 2 020 Frequency of Binge Drinking Not on file 07/02 PHQ-2 Answer Date Recorded PHQ-2 Total Score (If total score is 3 or more points, staff should administer the PHQ-9) 0 01/18/2020 Sex and Gender Information Value Date Recorded Sex Assigned at Not on file Legal Sex Male 7:15 PM COMMUNICATION ASSISTANT Gender Identity Not on file Sexual Orientation Straight 08/31/2021 4: 21 PM COMMUNICATION ASSISTANT 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 Not on file Not on file documented as of this encounter Plan of Treatment Not on file documented as of this encounter Visit Diagnoses Not on filedocumented in this encounter Additional Health Concerns Infection Onset Date Last Indicated Resolved Time COVID: Suspected 03/28/2021 03/28/2021 03/28/2021 3:11 AM CDT Exposure, COVID-19 Comment:Added automatically based on COVID19 lab answers indicating exposure risk 07/11/2021 07/11/2021 07/11/2021 8:[address] COVID: Suspected 07/11/2021 07/11/2021 07/11/2021 8:04 AM COMMUNICATION ASSISTANT COVID19 07/11/2021 07/11/2021 07/25/2021 3:05 AM COMMUNICATION ASSISTANT COVID: Recovered Comment:Added based on recent COVID infection. 07/25/2021 08/07/2021 11/22/2021 3:05 AM C DT documented as of this encounter Care Teams Field Operations Supervisor Relationship Specialty Start Date End Date Lan Doss MD PCP - General 06/27/18 08/22/21 Lan Doss MD PCP - General Family Medicine 08/23/21 Lan Doss MD 08/23/21 Travon Stevens MD Medical Oncologist/Ambulance Driver Paramedic Medical Oncology 11/11/18 Deshawn Penaloza MD Surgeon Neurosurgery 01/23/19 Jane Urrutia MA [address] [place], [place] [id number] ACO Care Manager Chemical 10/05/21 10/06/21 Jen Ramos LPN [address] [place] [address] Pinsetter Mechanic Automatic 09/06/22 09/16/22 documented as of this encounter
--- OUTSIDE RECORDS SUMMARY | 2024-10-09 07:20 | XMS_ITS | Encounter Summary ---
Author Organization [facility] Facility Care Team Providers Care Mobility Architect Name Role Phone Lan Doss MD Primary Care Provider [phone] Lan Doss MD Primary Care Provider [phone] Lan Doss MD Unavailable [phone] Travon Stevens MD Unavailable [phone] Deshawn Penaloza MD Unavailable [phone] Nina Flores MD Unavailable Jane Urrutia MA Unavailable [phone] Jen Ramos LPN Unavailable [phone] Encounter Details Date Type Department Care Team (Latest Contact Info) Description 05/03/2016 Orders Only [facility] CLINCONV ProviderTerri MD [address] [place] [address] Social History Tobacco Use Types Packs/Day Years Used Date Smoking Tobacco: Never Assessed Sex and Gender Information Value Date Recorded Sex Assigned at Not on file Legal Sex Male 7:15 PM NURSE SEXUAL ASSAULT Gender Identity Not on file Sexual Orientation Straight 08/31/2021 4: 21 PM NURSE SEXUAL ASSAULT documented as of this encounter Plan of Treatment Not on file documented as of this encounter Procedures Procedure Name Priority Date/Time Associated Diagnosis Comments SCAN - LABS 05/04/2016 12:00 AM CDT documented in this encounter Results * SCAN - LABS (05/04/2016 12:00 AM CDT) Narrative 05/04/2016 12:00 AM CDT Ordered by an unspecified [...] COVID: Suspected 07/11/2021 07/11/2021 07/11/2021 8:04 AM NURSE SEXUAL ASSAULT COVID19 07/11/2021 07/11/2021 07/25/2021 3:05 AM NURSE SEXUAL ASSAULT COVID: Recovered Comment:Added based on recent COVID infection. 07/25/2021 08/07/2021 11/22/2021 3:05 AM C DT documented as of this encounter Care Teams Mobility Architect Relationship Specialty Start Date End Date Lan Doss MD PCP - General 06/27/18 08/22/21 Lan Doss MD PCP - General Family Medicine 08/23/21 Lan Doss MD 08/23/21 Travon Stevens MD Medical Oncologist/Heatset Winder Operator Medical Oncology 11/11/18 Deshawn Penaloza MD Surgeon Neurosurgery 01/23/19 Nina Flores MD Radiation Oncologist Radiation Oncology 01/23/19 Jane Urrutia MA [address] [place] [address] ACO Care Music Coordinator 10/05/21 10/06/21 Jen Ramos LPN [address] [place] [address] Multi Operation Forming Machine Setter 09/06/22 09/16/22 documented as of this encounter
--- OUTSIDE RECORDS SUMMARY | 2024-10-09 07:20 | XMS_ITS | Encounter Summary ---
Author Organization [facility] Facility Care Team Providers Care Business Functional Analyst Name Role Phone Lan Doss MD Primary Care Provider [phone] Lan Doss MD Primary Care Provider [phone] Lan Doss MD Unavailable [phone] Travon Stevens MD Unavailable Deshawn Penaloza MD Unavailable [phone] Nina Flores MD Unavailable [phone] Jane Urrutia MA Unavailable [phone] Jen Ramos LPN Unavailable [phone] Encounter Details Date Type Department Care Team (Latest Contact Info) Description 06/30/2018 Orders Only [facility]IN[facility] ProviderTerri MD [address] [place] [id number] Social History Tobacco Use Types Packs/Day Years Used Date Smoking Tobacco: Former Smokeless Tobacco: Never Alcohol Use Standard Drinks/Week Comments Defer 0 (1 standard drink = 0.6 oz pur e alcohol) Sex and Gender Information Value Date Recorded Sex Assigned at Not on file Legal Sex Male 7:15 PM CARBONIZER Gender Identity Not on file Sexual Orientation Straight 08/31/2021 4: 21 PM CARBONIZER documented as of this encounter Plan of Treatment Not on file documented as of this encounter Procedures Procedure Name Priority Date/Time Associated Diagnosis Comments SCAN - PATHOLOGY 07/11/2018 12:0 0 AM CARBONIZER documented in this encounter Results * SCAN - PATHOLOGY (07/11/2018 12:00 AM CARBONIZER) Narrative 07/11/2018 12:00 AM CARBONIZER Ordered by an unspecified provider. us Historical [...] COVID: Suspected 07/11/2021 07/11/2021 07/11/2021 8:04 AM CARBONIZER COVID19 07/11/2021 07/11/2021 07/25/2021 3:05 AM CARBONIZER COVID: Recovered Comment:Added based on recent COVID infection. 07/25/2021 08/07/2021 11/22/2021 3:05 AM C DT documented as of this encounter Care Teams Business Functional Analyst Relationship Specialty Start Date End Date Lan Doss MD PCP - General 06/27/18 08/22/21 Lan Doss MD PCP - General Family Medicine 08/23/21 Lan Doss MD 08/23/21 Travon Stevens MD Medical Oncologist/Journeyman Plumber Medical Oncology 11/11/18 Deshawn Penaloza MD Surgeon Neurosurgery 01/23/19 Nina Flores MD Radiation Oncologist Radiation Oncology 01/23/19 Jane Urrutia MA [address] [place] [address] ACO Care Fountain Helper 10/05/21 10/06/21 Jen Ramos LPN [address] [place] [address] Industrial Electrical Engineer 09/06/22 09/16/22 documented as of this encounter
--- OUTSIDE RECORDS SUMMARY | 2024-10-09 07:20 | XMS_ITS | Encounter Summary ---
Author Organization [facility] Facility Care Team Providers Care Treating Plant Pumper Name Role Phone Lan Doss MD Primary Care Provider [phone] Lan Doss MD Primary Care Provider [phone] Lan Doss MD Unavailable [phone] Travon Stevens MD Unavailable Deshawn Penaloza MD Unavailable [phone] Nina Flores MD Unavailable Jane Urrutia MA Unavailable [phone] Jen Ramos LPN Unavailable [phone] Encounter Details Date Type Department Care Team (Latest Contact Info) Description 11/09/2015 Orders Only [facility] CLINCON[facility] ProviderTerri MD [address] [place] [address] Social History Tobacco Use Types Packs/Day Years Used Date Smoking Tobacco: Never Assessed Sex and Gender Information Value Date Recorded Sex Assigned at Not on file Legal Sex Male 7:15 PM OPERATIONAL INTELLIGENCE OFFICER Gender Identity Not on file Sexual Orientation Straight 08/31/2021 4: 21 PM OPERATIONAL INTELLIGENCE OFFICER documented as of this encounter Plan of [...] COVID: Suspected 07/11/2021 07/11/2021 07/11/2021 8:04 AM OPERATIONAL INTELLIGENCE OFFICER COVID19 07/11/2021 07/11/2021 07/25/2021 3:05 AM OPERATIONAL INTELLIGENCE OFFICER COVID: Recovered Comment:Added based on recent COVID infection. 07/25/2021 08/07/2021 11/22/2021 3:05 AM C DT documented as of this encounter Care Teams Treating Plant Pumper Relationship Specialty Start Date End Date Lan Doss MD PCP - General 06/27/18 08/22/21 Lan Doss MD PCP - General Family Medicine 08/23/21 Lan Doss MD 08/23/21 Travon Stevens MD Medical Oncologist/Mold Stripper Medical Oncology 11/11/18 Deshawn Penaloza MD Surgeon Neurosurgery 01/23/19 Nina Flores MD Radiation Oncologist Radiation Oncology 01/23/19 Jane Urrutia MA [address] [place] [address] ACO Care Slag Motor Operator 10/05/21 10/06/21 Jen Ramos LPN [address] [place] [address] Loan Inspector 09/06/22 09/16/22 documented as of this encounter
--- OUTSIDE RECORDS SUMMARY | 2024-10-09 07:21 | XMS_ITS | Encounter Summary ---
Author Organization [facility] Address [address] [place] [address] Phone Care Team Providers Care Transitions Manager Rn Name Role Phone Lan Doss MD Primary Care Provider [phone] Lan Doss MD Unavailable [phone] Travon Stevens MD Unavailable [phone] Deshawn Penaloza MD Unavailable [phone] Encounter Details Date Type Department Care Team (Latest Contact Info) Description 05/20/2024 Orders Only [facility] Scanning, Provider Social History Tobacco Use Types Packs/Day Years Used Date Smoking Tobacco: Never Passive Smoke Exposure: Past Smokeless Tobacco: Never Alcohol Use Standard Drinks/Week Comments Yes 0 (1 standard drink = 0.6 oz pur e alcohol) rare Social Connection and Isolat ion Panel [NHANES] Answer Date Recorded In a typical week, how many times do you talk on the phone with family, friends, or neighbors? More than three times a week 09/18/2022 How often do you get togethe r with friends or relatives? More than three times a week 09/18/2022 How often do you attend chur ch or sikh services? Never 09/18/2022 Do you belong to any clubs o r organizations such as anglican groups, unions, fraternal or athletic groups, or school groups? No 09/18/2022 How often do you attend meet ings of the clubs or organizations you belong to? Never 09/18/2022 Are you , , di vorced, , never , or living with a partner? 09/18/2022 AUDIT-C Answer Date Recorded Q1: How often do you have a drink containing alcohol? Monthly or less 09/17/2022 Q2: How many drinks containi ng alcohol do you have on a typical day when you are drinking? Patient does not drink Q3: How often do you have si x or more drinks on one occasion? Never 09/17/2022 Overall Financial Resource Strain (CARDIA) Answe r Date Recorded How hard is it for you to pa y for the very basics like food, housing, medical care, and heating? Not hard at all 09/18/2022 PHQ-2 Answer Date Recorded PHQ-2 Total Score (If total score is 3 or more points, staff should administer the PHQ-9) 0 02/08/2022 Hunger Vital Sign Answer Date Recorded Within the past 12 months, y ou worried that your food would run out before you got the money to buy more. Never true 09/19/19 23 Within the past 12 months, t he food you bought just didn't last and you didn't have money to get more. Never true 09/18/2022 PRAPARE - Transportation Answer Date Re corded In the past 12 months, has l ack of transportation kept you from medical appointments or from getting medications? No 08/30 In the past 12 months, has l ack of transportation kept you from meetings, work, or from getting things needed for daily living? No 09/18/2022 Housing Stability Vital Sign Answer Jerry e Recorded In the last 12 months, was t here a time when you were not able to pay the mortgage or rent on time? No 09/18/2022 In the last 12 months, how many places have you lived? 2 09/18/2022 In the last 12 months, was t here a time when you did not have a steady place to sleep or slept in a group home (including now)? No 09/18/2022 Personal Safety Answer Date Recorded Have you ever been in or are you currently in a harmful physical or emotional relationship or is someone making you feel afraid or unsafe? 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 Not on file Not on file documented as of this encounter Plan of Treatment Not on file documented as of this encounter Procedures Procedure Name Priority Date/Time Associated Diagnosis Comments SCAN - LABS 05/20/2024 documented in this encounter Results * SCAN - LABS (05/20/2024) us Provider Scanning Final Result documented in this encounter Visit Diagnoses Not on filedocumented in this encounter Care Teams Transitions Manager Rn Relationship Specialty Start Date End Date Lan Doss MD PCP - General Family Medicine 08/23/21 Lan Doss MD 08/23/21 Travon Stevens MD Medical Oncologist/Senior Sql Server Dba Medical Oncology 11/11/18 Deshawn Penaloza MD Surgeon Neurosurgery 01/23/19 documented as of this encounter
--- OUTSIDE RECORDS SUMMARY | 2024-10-09 07:21 | XMS_ITS | Clinical Summary ---
Author Organization [facility] Address [address] [place] [address] Care Team Providers Care Cost Consultant Name Role Phone Unavailable Primary Care Provider Unavailabl e Allergies No known active allergies Medications CALCIUM CARBONATE ORAL Take 1 tablet by mouth. Active ERGOCALCIFEROL, VITAMIN D2, ORAL Take 400 Units by mouth 1 (one) time each day. Active flaxseed oiL 1,000 mg capsule 1 (one) time each day. Active turmeric, bulk, 100 % powder 1,800 mg. Active clobetasoL (OLUX) 0.05 % topical foam Apply small amount to affected area (areas of redness) with array changes and let dry. Do not wipe off before replacing arrays. Do not use on broken skin. 1 Active dulaglutide (Trulicity) 0.75 mg/0.5 mL pen injector Inject 0.75 mg under the skin. 1 Active dulaglutide 1.5 mg/0.5 mL pen injector Inject under the skin. Active levETIRAcetam (KEPPRA) 500 mg tablet Take 500 mg by mouth twice a day. 0 Active lisinopriL (PRINIVIL,ZESTR IL) 40 mg tablet Take 40 mg by mouth 1 (one) time each day. 1 Active lisinopriL (PRINIVIL,ZESTR IL) 20 mg tablet Take 20 mg by mouth. Active metFORMIN (GLUCOPHAGE) 1,000 mg tablet Take 1,000 mg by mouth twice a day. Active metFORMIN XR (GLUCOPHATE-XR) 500 mg 24 hr tablet 4 tabs daily 1 Active rizatriptan (MAXALT) 10 mg tablet TAKE 1 TABLET BY MOUTH EVERY DAY NEEDED FOR 30 DAYS 0 Active Active Problems Problem Noted Date Diagnosed Date Glioblastoma multiforme 11/11/2018 Overview (03/07/2021): Last Assessment & Plan: Seeing NUS, under current treatment, weight loss, fatigue, some nausea Seizure disorder 11/11/2018 Overview (03/07/2021): Last Assessment & Plan: On meds No changes cpm Labs 3 months Glioblastoma 07/09/2018 Brain mass 07/04/2018 Overview (03/07/2021): Last Assessment & Plan: Requirement for high dose steroids complicates glycemic management and may need 's assistance with insulin dosing though pt reports he gives insulin shots to his dog at home and is comfortable. Steroid wean plan per neurosurgery: 4mg po q12 x3 days (07/02-07/04), then 2mg po q12 x3 days (07/05-07/07), then 1mg po q12 x2 days (07/08-07/09), then 1mg po qd x2 days (07/10-05/11), then STOP High risk medication use 07/02/2018 Overview (03/07/2021): Last Assessment & Plan: Requires intensive QID monitoring to avoid hypo and hyperlgycemia GERD (gastroesophageal reflux disease) 8 Overview (03/07/2021): Last Assessment & Plan: Diet exercise, PPI Essential hypertension 10/17/2015 Overview (03/07/2021): Last Assessment & Plan: DASH diet, CPM, BP controlled Hyperlipidemia 10/17/2015 Overview (03/07/2021): Last Assessment & Plan: CPM, some weight loss, follow labs Type 2 diabetes mellitus 10/17/2015 Overview (03/07/2021): Last Assessment & Plan: Overall control adequate per patient report, but exacerbated by steroid induced hyperglycemia. Initiatedweight based dosing 0.4 U/kg as follows: lantus 25U qd, humalog 8U TID, MDS Pt remained hyperglycemic 200s-300s on above reg. Tolerating PO. Continues on decadron 4mg po q12 until 07/04 (see steroid taper schedule). Tolerating PO excellently. In s/o uncontrolled steroid-induced hyperglycemia, increased regimen to: Lantus 28U qd Humalog 14 U TID with meals HDSSI Last Assessment & Plan: HARPER trpalma conr Metformion for now Labs 3 mo A1C 6.2 Has lost weigh t with chemo treatment Immunizations Immunization Administration Dates Next Due Influenza, split virus, trivalent, PF 07/05/2018 Influenza, unspecified 07/05/2018 Tdap 09/04/2015 Varicella 04/01/2013 Social History Tobacco Use Types Packs/Day Years Used Date Smoking Tobacco: Never Smokeless Tobacco: Never Alcohol Use Standard Drinks/Week Comments Yes 0 (1 standard drink = 0.6 oz pur e alcohol) Less than one a month Sex and Gender Information Value Date Recorded Sex Assigned at Not on file Legal Sex Male 9:03 PM PDT Gender Identity Not on file Sexual Orientation Not on file Last Filed Vital Signs Vital Sign Reading Time Taken Comments Blood Pressure 159/92 03/07/2021 1:37 PM CDT Pulse 87 03/07/2021 1:37 PM CDT Temperature 36.1 C (96.9 F) 03/07/2021 1:37 PM CDT Respiratory Rate - - Oxygen Saturation - - Inhaled Oxygen Concentration - - Weight - - Height - - Body Mass Index - - Plan of Treatment Health Maintenance Due Date Last Done Comments Meningococcal B Vaccine Aged Out No l onger eligible based on patient's age to complete this topic
--- OUTSIDE RECORDS SUMMARY | 2024-10-09 07:21 | XMS_ITS | Encounter Summary ---
Author Organization [facility] Address [address] [place] [address] Phone Care Team Providers Care Mandrel Cleaner Name Role Phone Lan Doss MD Primary Care Provider [phone] Lan Doss MD Unavailable [phone] Travon Stevens MD Unavailable [phone] Deshawn Penaloza MD Unavailable [phone] Encounter Details Date Type Department Care Team (Latest Contact Info) Description 04/08/2024 Orders Only [facility] Scanning, Provider [...] often do you attend chur ch or voodoo services? Never 09/18/2022 Do you belong to any clubs o r organizations such as scientology groups, unions, fraternal or athletic groups, or [...] place to sleep or slept in a senior living (including now)? No 09/18/2022 Personal Safety Answer Date Recorded Have you ever been in or are you currently in a harmful physical or emotional relationship or is someone making you feel afraid or unsafe? 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 file Not on file documented as of this encounter Plan of Treatment Not on file documented as of this encounter Procedures Procedure Name Priority Date/Time Associated Diagnosis Comments SCAN - RADIOLOGY/IMAGING 04/08/2024 documented in this encounter Results * SCAN - RADIOLOGY/IMAGING (04/08/2024) Anatomical Region Laterality Modality Other us Provider Scanning Final Result documented in this encounter Visit Diagnoses Not on filedocumented in this encounter Care Teams Mandrel Cleaner Relationship Specialty Start Date End Date Lan Doss MD PCP - General Family Medicine 08/23/21 Lan Doss MD 08/23/21 Travon Stevens MD Medical Oncologist/Getterer Medical Oncology 11/11/18 Deshawn Penaloza MD Surgeon Neurosurgery 01/23/19 documented as of this encounter
--- OUTSIDE RECORDS SUMMARY | 2024-10-09 07:21 | XMS_ITS | Encounter Summary ---
Author Organization [facility] Address [address] [place] [address] Care Team Providers Care Director Patient Accounting Name Role Phone Unavailable Primary Care Provider Unavailabl e Prior Encounters Date Type Department Care Team Description 03/07/2021 Travel 03/07/2021 1:00 PM CDT Office Visit [facility] [address] [place] [phone] Cheryle Holt, ELSA 03/07/2021 1:00 PM CDT Office Visit [facility] [address] [place] [phone] Ivana Maradiaga RDH 07/20/2019 Converted CPS Chart Documents [facility] [address] [place] [phone] <No scans attached> 07/20/2019 Converted 13x Documents [facility] [address] [place] [phone] <No scans attached> Last Filed Vital Signs Vital Sign Reading Time Taken Comments Blood Pressure 159/92 03/07/2021 1:37 PM CDT Pulse 87 03/07/2021 1:37 PM CDT Temperature 36.1 C (96.9 F) 03/07/2021 1:37 PM CDT Respiratory Rate - - Oxygen Saturation - - Inhaled Oxygen Concentration - - Weight - - Height - - Body Mass Index - - Plan of Treatment Not on file Procedures Procedure Name Priority Date/Time Associated Diagnosis Comments ORAL HYGIENE INSTRUCTIONS Routine 2020 1:00 PM CDT TOPICAL APPLICATION OF FLUORIDE VARNISH Routine 03/07/2021 1:00 PM CDT PROPHYLAXIS - ADULT Routine 03/07/2021 1 :00 PM CDT INTRAORAL PHOTO Routine 03/07/2021 1:00 PM CDT INTRAORAL PHOTO Routine 03/07/2021 1:00 PM CDT INTRAORAL PHOTO Routine 03/07/2021 1:00 PM CDT INTRAORAL PHOTO Routine 03/07/2021 1:00 PM CDT BITEWINGS - FOUR RADIOGRAPHIC IMAGES Routine 03/07/2021 1:00 PM CDT ADDITIONAL X-RAY Routine 03/07/2021 1:00 PM CDT ADDITIONAL X-RAY Routine 03/07/2021 1:00 PM CDT ADDITIONAL X-RAY Routine 03/07/2021 1:00 PM CDT ADDITIONAL X-RAY Routine 03/07/2021 1:00 PM CDT ADDITIONAL X-RAY Routine 03/07/2021 1:00 PM CDT SINGLE X-RAY Routine 03/07/2021 1:00 PM CDT PERIODIC ORAL EVALUATION - ESTABLISHED PATIENT Routine 03/07/2021 1:00 PM CDT PERIODIC ORAL EVALUATION - ESTABLISHED PATIENT Routine 08/23/2020 2:00 AM RISK ADJUSTMENT SPECIALIST ORAL HYGIENE INSTRUCTIONS Routine 2020 2:00 AM RISK ADJUSTMENT SPECIALIST TOPICAL APPLICATION OF FLUORIDE VARNISH Routine 08/23/2020 2:00 AM RISK ADJUSTMENT SPECIALIST PROPHYLAXIS - ADULT Routine 08/23/2020 2 :00 AM RISK ADJUSTMENT SPECIALIST BITEWINGS - FOUR RADIOGRAPHIC IMAGES Routine 02/18/2020 2:00 AM CDT ADDITIONAL X-RAY Routine 02/18/2020 2:00 AM CDT ADDITIONAL X-RAY Routine 02/18/2020 2:00 AM CDT 18 CORE BUILDUP, INCLUDING ANY PINS WHEN REQUIRED Routine 02/17/2020 2:00 AM CDT 16 JACKI AMALGAM 2 SURFACE Routine 02/17/20 2:00 AM CDT 15 LO AMALGAM 2 SURFACE Routine 02/17/20 2:00 AM CDT 5 O AMALGAM 1 SURFACE Routine 02/17/2020 2:00 AM CDT 31 CERECFIRED CROWNPOST Routine 02/17/20 20 2:00 AM CDT 30 CERECFIRED CROWNPOST Routine 02/17/20 20 2:00 AM CDT 19 CERECFIRED CROWNPOST Routine 02/17/20 20 2:00 AM CDT 18 CERECFIRED CROWNPOST Routine 02/17/20 20 2:00 AM CDT 18 ENDODONTIC THERAPY, MOLAR TOOTH (EXCLUDING FINAL VOODOO) Routine 02/17/2020 2:00 AM CDT 25 ENDODONTIC THERAPY, ANTERIOR TOOTH (EXCLUDING FINAL VOODOO) Routine 02/17/2020 2:00 AM CDT 3 CROWN PFM POST Routine 02/17/2020 2:00 AM CDT 2 CROWN PFM POST Routine 02/17/2020 2:00 AM CDT ORAL HYGIENE INSTRUCTIONS Routine 2019 2:00 AM CDT TOPICAL APPLICATION OF FLUORIDE VARNISH Routine 02/17/2020 2:00 AM CDT PROPHYLAXIS - ADULT Routine 02/17/2020 2 :00 AM CDT COMPREHENSIVE ORAL EVALUATION - NEW OR ESTABLISHED PATIENT Routine 02/17/2020 2:00 AM CDT PANORAMIC RADIOGRAPHIC IMAGE Routine 02/17/2020 2:00 AM CDT INTRAORAL - COMPREHENSIVE SERIES OF RADIOGRAPHIC IMAGES Routine 02/17/2020 2:00 AM CDT INTRAORAL PHOTO Routine 02/17/2020 2:00 AM CDT INTRAORAL PHOTO Routine 02/17/2020 2:00 AM CDT INTRAORAL PHOTO Routine 02/17/2020 2:00 AM CDT INTRAORAL PHOTO Routine 02/17/2020 2:00 AM CDT 12 MO COMPOSITE FILLING Routine 02/17/20 20 2:00 AM CDT 29 O COMPOSITE FILLING Routine 0 2:00 AM CDT 28 O COMPOSITE FILLING Routine 0 2:00 AM CDT 21 O COMPOSITE FILLING Routine 0 2:00 AM CDT 20 O COMPOSITE FILLING Routine 0 2:00 AM CDT 14 B COMPOSITE FILLING Routine 0 2:00 AM CDT 14 O COMPOSITE FILLING Routine 0 2:00 AM CDT 13 B COMPOSITE FILLING Routine 0 2:00 AM CDT 12 B COMPOSITE FILLING Routine 0 2:00 AM CDT 5 B COMPOSITE FILLING Routine 02/17/2020 2:00 AM CDT 4 B COMPOSITE FILLING Routine 02/17/2020 2:00 AM CDT 25 L COMPOSITE FILLING Routine 0 2:00 AM CDT 4 DO COMPOSITE FILLING Routine 0 2:00 AM CDT Visit Diagnoses Not on file
--- OUTSIDE RECORDS SUMMARY | 2024-10-09 07:22 | XMS_ITS ---
Author Name Carlos Enrique Taylor Address [address] [facility] [address] [place] [address] Phone [phone] [facility] Address [address] [place] [address] Phone [phone] Care Team Providers Care Multimedia Editor Name Role Phone Carlos Enrique Taylor Unavailable [phone] Functional Status No Results Mental Status No Results Allergies and Intolerances Name Onset Date Reaction Severity No Known Allergies (Allergy) SatOctober 30 03:54:00 EDT 2022 Encounters Program Name Primary Diagnosis Admission Date/Time Dis charge Date/Time [facility] Aphasia SatMar 06 11:00:00 EDT 2023 Assisted Living Area SatOctober 30 10:30:00 EDT 2022Mar 06 16:15:00 EDT 2023 [facility] [place] Jun 16 19:00:00 EST 2022 Samantha Sep 05 08:00:00 EDT 2023 Immunizations Name Dates Status TST-PPD intradermal Mon Sep 16 01:00:00 EDT 2023 Completed TST-PPD intradermal Mon Sep 09 01:00:00 EDT 2023 Completed TST-PPD intradermal Sat Sep 14 01:00:00 EDT 2023 Completed TST-PPD intradermal Sat Sep 07 01:00:00 EDT 2023 Completed influenza, trivalent, adjuvanted Samantha Oct 10 01:0 0:00 EDT 2023 Completed Medications Medication Directions Start Date End Date temozolomide 250 mg capsule Take 2 = 500 mg CAPSULE Oral 1 Time Daily for 5 Days Indication: brain cancer SatSep 29 06:00:00 EDT 2024Oct 04 05:59:00 EDT 2024 CalProtect 0.44 %-20.6 % topical ointment ! application OINTMENT (GRAM) Topical 2 Times Daily Indication: Redness and excoriation Apply CalProtect to gluteal folds SatSep 12 11:02:00 EDT 2024 HumaLOG KwikPen (U-100) Insulin 100 unit/mL subcutaneous 20 units INSULIN PEN (ML) Subcutaneous 1 Time Daily for 1 Day Indication: High BS SatSep 10 22:00:00 EDT 2024Sep 11 21:59:00 EDT 2024 DULoxetine 20 mg capsule,delayed release Take 1 CAPSULE,DELAYED RELEASE (ENTERIC COATED) Oral 1 Time Daily Indication: Depression SatSep 05 06:00:00 2024 temozolomide 250 mg capsule Give 2 = 500 mg CAPSULE Oral 1 Time Daily for 5 Days Indication: Cancer Take 2 capsules (500mg) by mouth daily for x 5 days. SatSep 01 13:00:00 2024Sep 01 13:47:00 2024 temozolomide 250 mg capsule Give 2 = 500 mg CAPSULE Oral 1 Time Daily for 5 Days Indication: Cancer Take 2 capsules (500mg) by mouth daily for x 5 days.Take medication on empty stomach before a meal SatSep 01 13:45:00 2024Sep 06 13:44:00 ED2024 gabapentin 300 mg capsule 1 capsule CAPS ULE Oral 3 Times Daily Indication: . diabetic neuropathy SatAug 27 18:59:00 2024 temozolomide 250 mg capsule Take 2 = 500 mg CAPSULE Oral 1 Time Daily for 5 Days Indication: Brain cancer Take 2 capsules (500mg) daily for 5 days. Two bottles sent out: 10 total capsules (5 in each bottle) SatAug 10 06:00:00 2024Aug 15 05:59:00 2024 ipratropium 0.5 mg-albuteroL 3 mg (2.5 mg base)/3 mL nebulization soln 1 AMPUL FOR NEBULIZATION (ML) Inhalation 4 Times Daily for 14 Days Indication: cough and congestion CO SatAug 03 13:00:00 2024Aug 17 12:59:00 2024 ipratropium 0.5 mg-albuteroL 3 mg (2.5 mg base)/3 mL nebulization soln 1 AMPUL FOR NEBULIZATION (ML) Inhalation 4 Times Daily for 2 Days Indication: Cough and congestion SatAug 01 01:00:00 EST 2024Aug 03 00:59:00 EST 2024 dexAMETHasone 4 mg tablet 1 Tablet TABLE T Oral 1 Time Daily Indication: Metabolic Encephalopathy SatJul 31 06:00:00 EST 2024 Mucinex D 60 mg-600 mg tablet,extended release 1 tablet TABLET, EXTENDED RELEASE 12 HR Oral 2 Times Daily for 7 Days Indication: congestion SatJul 29 05:30:00 EST 2024Aug 05 05:29:00 EST 2024 metoprolol tartrate 25 mg tablet 12.5 TABLET Oral 2 Times Daily Indication: Elevated BP/HRTake 12.5mg twice daily. SatJul 28 23:52:00 EST 2024 metoprolol tartrate 25 mg tablet 12.5 TABLET Oral 2 Times Daily Indication: Elevated BP/HRTake 12.5mg twice daily. SatJul 27 12:00:00 EST 2024Jul 28 23:53:00 EST 2024 CalProtect 0.44 %-20.6 % topical ointment ! application OINTMENT (GRAM) Topical Every 3 Days Indication: Redness and excoriation Apply CalProtect to gluteal fold and cover with foam dressing Q 3 days and PRN for dislodgement. SatJul 20 06:00:00 EST 2024 Sat Sep 12 11:03:00 EDT 2024 FreeStyle Luis 2 Sensor kit 1 kit KIT Topical Every 2 Weeks Indication: . DM nurse admin freestyle sensor every 2 weeks. rotate sites SatJul 18 13:09:00 EST 2024 HumaLOG KwikPen (U-100) Insulin 100 unit/mL subcutaneous 30 units INSULIN PEN (ML) Subcutaneous 1 Time Daily for 1 Day Indication: 30 Units one time dose, recheck BS in 1 hour SatJul 08 01:00:00 EST 2024Jul 09 00:59:00 EST 2024 baclofen 5 mg tablet 1 Tab TABLET Oral 3 Times Daily Indication: Muscle Spasms SatJun 27 08:00:00 EST 2023 prochlorperazine maleate 10 mg tablet Give 1 TABLET Oral PRN Every 6 Hours Indication: Nausea and vomiting *USE FIRST* SatJun 16 17:00:00 EST 2023 ondansetron 8 mg disintegrating tablet Give 1 TABLET,DISINTEGRATING Oral PRN Every 8 Hours Indication: Nausea Take 30 mins prior to oral chemotherapy then every 8 hours PRN up to MAX 3 doses in 24 hours *if prochlorperazine does not stop nausea*. SatJun 16 17:00:00 2023 temozolomide 180 mg capsule Take 2 (360 mg) CAPSULE Oral 1 Time Daily for 5 Days Indication: Brain cancer Total dose 380 mg daily for 5 days. Take on days 1-5 of each 28-day cycle. SatJun 18 05:00:00 2023Jun 23 04:59:00 2023 temozolomide 180 mg capsule Give 2= 360 mg CAPSULE Oral 1 Time Daily for 5 Days Indication: Brain cancerTotal dose 380 mg daily for 5 days. Take on days 1-5 of each 28-day cycle. SatJul 19 05:00:00 2024Jun 16 17:38:00 2023 temozolomide 20 mg capsule Take 1 CAPSUL E Oral 1 Time Daily for 5 Days Indication: Brain cancer Total dose 380 mg daily for 5 days. Take on days 1-5 of each 28-day cycle. SatJun 18 05:00:00 2023Jun 23 04:59:00 2023 temozolomide 20 mg capsule Give 1 CAPSUL E Oral 1 Time Daily for 5 Days Indication: Brain cancer Total dose 380 mg daily for 5 days. Take on days 1-5 of each 28-day cycle. SatJul 19 05:00:00 2024Jun 16 17:37:00 2023 temozolomide 20 mg capsule Give 1 CAPSUL E Oral 1 Time Daily for 5 Days Indication: Brain cancer Total dose 380 mg daily for 5 days. Take on days 1-5 of each 28-day cycle. SatJul 16 05:00:00 2024Jul 17 16:27:00 2024 temozolomide 180 mg capsule Give 2= 360 mg CAPSULE Oral 1 Time Daily for 5 Days Indication: Brain cancerTotal dose 380 mg daily for 5 days. Take on days 1-5 of each 28-day cycle. SatJul 16 05:00:00 2024Jul 17 16:27:00 2024 Vashe 0.033 % irrigation solution as directed SOLUTION, IRRIGATION Topical 2 Times Daily Indication: skin care apply Vashe to BUE BID SatMay 07 16:00:00 EST 2023 metOLazone 5 mg tablet 1 tab TABLET Oral 1 Time Daily for 10 Days Indication: edema Administer 30 minutes before bumetanide SatApr 26 07:00:00 EDT 2023May 06 06:59:00 EST 2023 atorvastatin 20 mg tablet 20 mg TABLET O ral 1 Time Daily Indication: cholesterol SatApr 22 14:00:00 EDT 2023Apr 22 14:22:00 EDT 2023 simvastatin 20 mg tablet 20 mg TABLET Or al 1 Time Daily Indication: cholesterol SatApr 22 14:00:00 EDT 2023 bumetanide 1 mg tablet Give 1 TABLET Ora l 1 Time Daily Indication: treat fluid retention (edema) Monitor for dehydration sx. SatApr 17 16:00:00 EDT 2023 FreeStyle Luis 2 Sensor kit 1 kit KIT Topical Every 2 Weeks Indication: . DM nurse admin freestyle sensor every 2 weeks. rotate sites SatApr 02 11:01:00 EDT 2023Apr 07 18:00:00 EDT 2023 Fluad Triv (65y up)(PF) 45 mcg (15 mcg x 3)/0.5 mL IM syringe 0.5 mL SYRINGE (ML) Intramuscular 1 Time Daily for 1 Day Indication: Influenza vaccine SatApr 09 05:00:00 EDT 2023Apr 10 04:59:00 EDT 2023 FreeStyle Luis 2 Sensor kit 1 kit KIT Topical Every 2 Weeks Indication: . DM nurse admin freestyle sensor every 2 weeks. rotate sites SatApr 09 14:19:00 EDT 2023Jul 18 13:11:00 EST 2024 FreeStyle Luis 2 Sensor kit 1 kit KIT Topical Every 2 Weeks Indication: . DM nurse admin freestyle sensor every 2 weeks. rotate sites SatApr 16 05:00:00 EDT 2023Apr 16 14:21:00 EDT 2023 metFORMIN 500 mg tablet 1 tab TABLET Ora l 2 Times Daily Indication: . DM SatApr 03 11:00:00 EDT 2023 phentermine 15 mg capsule 1 capsule CAPS ULE Oral 1 Time Daily Indication: Take 2 hours after breakfast SatMar 26 11:00:00 EDT 2023Apr 01 19:33:00 EDT 2023 DULoxetine 30 mg capsule,delayed release 1 capsule CAPSULE,DELAYED RELEASE (ENTERIC COATED) Oral 1 Time Daily Indication: . anxiety e Sep 10 12:34:00 EDT 2023Sep 04 10:06:00 EST 2024 acetaminophen ER 650 mg tablet,extended release 1 tablet TABLET, EXTENDED RELEASE Oral PRN (Max 6 Doses) Indication: Pain *DO NOT EXCEED 3GM/DAY e Sep 12:45:00 EDT 2023 Sep 10 12:48:00 EDT 2023 acetaminophen ER 650 mg tablet,extended release 1 tablet TABLET, EXTENDED RELEASE Oral PRN (Max 6 Doses) Indication: Pain e Sep 12:48:00 EDT 2023 Sep 10 12:51:00 EDT 2023 acetaminophen ER 650 mg tablet,extended release 1 tablet TABLET, EXTENDED RELEASE Oral PRN Every 6 Hours Indication: Pain *DO NOT EXCEED 6 DOSES IN A DAY (3900MG) FROM ALL SOURCES SatMar 10 12:48:00 EDT 2023 Lantus Solostar U-100 Insulin 100 unit/mL (3 mL) subcutaneous pen 35 units INSULIN PEN (ML) Subcutaneous 1 Time Daily Indication: . DM SatMar 08 11:00:00 EDT 2023 Pen Needle 30 gauge x 5/16 1 applicatio n NEEDLE, DISPOSABLE Other Continuous Indication: . insulin needle Sat Mar 07 11:00:00 EDT 2023 amLODIPine 10 mg tablet 1 tablet TABLET Oral 1 Time Daily Indication: . HTN Sat Sep 07:00:00 EDT 2023 dexAMETHasone 6 mg tablet 1 tablet TABLE T Oral 1 Time Daily Indication: . Metabolic Encephalopathy Sat Sep 07:00:00 EDT 2023Jul 30 18:23:00 EST 2024 DULoxetine 30 mg capsule,delayed release 1 capsule CAPSULE,DELAYED RELEASE (ENTERIC COATED) Oral 1 Time Daily Indication: . anxiety Sat Sep 07 07:00:00 EDT 2023Mar 10 12:35:00 EDT 2023 famotidine 20 mg tablet 1 tab TABLET Ora l 1 Time Daily Indication: . GERD Sat Sep 07 07:00:00 EDT 2023 gabapentin 300 mg capsule 1 capsule CAPS ULE Oral 2 Times Daily Indication: . diabetic neuropathy SatMar 06 19:00:00 EDT 2023 Fe 19:01:00 EST 2024 magnesium oxide 400 mg (241.3 mg magnesium) tablet 1 tab TABLET Oral 1 Time Daily Indication: . GERD Sat Sep 07 07:00:00 2023 OXcarbazepine 300 mg tablet 1 tab TABLET Oral 2 Times Daily Indication: . seizures SatMar 06 19:00:00 2023 cloNIDine HCL 0.1 mg tablet 1 tablet TAB LET Oral 2 Times Daily Indication: . HTN SatMar 06 19:00:00 2023 rizatriptan 10 mg tablet 1 tab TABLET Or al PRN Every 2 Hours Indication: . headaches May repeat dose every 2 hours to a maximum of 30mg in 24 hours SatMar 06 16:26:00 2023 HumaLOG KwikPen (U-100) Insulin 100 unit/mL subcutaneous 15 units INSULIN PEN (ML) Subcutaneous 3 Times Daily Indication: . DM SatMar 06 15:00:00 2023 Eliquis 2.5 mg tablet 1 tab TABLET Oral 2 Times Daily Indication: . metabolic encephalopathy SatMar 06 19:00:00 2023 nystatin 100,000 unit/gram topical powder 1 gram POWDER (GRAM) Topical PRN 2 Times Daily Indication: . rash apply to affected areas PRNnurse admin: cleanse and pat dry area then apply powder SatMar 06 16:33:00 2023 Eucerin topical cream 1 CREAM (GRAM) Top ical PRN 2 Times Daily Indication: . dry skin nurse admin: apply to dry skin PRN SatMar 06 16:33:00 2023 Pen Needle 30 gauge x 5/16 1 applicatio n NEEDLE, DISPOSABLE Other 4 Times Daily Indication: . insulin needle SatMar 06 15:00:00 2023Mar 07 10:59:00 2023 lactulose 10 gram/15 mL (15 mL) oral solution 15ml SOLUTION, ORAL Oral PRN 2 Times Daily Indication: . constipation SatMar 06 16:35:00 2023 furosemide 20 mg tablet 1 tab TABLET Ora l 1 Time Daily Indication: . edema SatMar 07 07:00:00 2023Apr 17 16:37:00 EDT 2023 nystatin 100,000 unit/gram topical powder as directed POWDER (GRAM) Topical 2 Times Daily Indication: . powder to groin topically/affected areas/fungal. BID until healed then PRN fungal infection SatMar 06 15:00:00 2023 Lantus Solostar U-100 Insulin 100 unit/mL (3 mL) subcutaneous pen 35 units INSULIN PEN (ML) Subcutaneous 1 Time Daily Indication: . DM SatMar 06 19:00:00 ED2023 Sun Mar 08 10:54:00 ED2023 polyethylene glycoL 3350 17 gram oral powder packet 17 grams POWDER IN PACKET (EA) Oral Every 1 Day Indication: . constipation SatMar 07 07:00:00 ED2023 sennosides 8.6 mg tablet 1 tablet TABLET Oral PRN 2 Times Daily Indication: . Constipation Indication: SatMar 06 06:00:00 ED2023 Samantha Jul 16 17:50:00 EST 2024 vitamin B complex tablet 1 tablet TABLET Oral 1 Time Daily Indication: . Supplement SatMar 07 07:00:00 2023 acetaminophen ER 650 mg tablet,extended release 1 tablet TABLET, EXTENDED RELEASE Oral PRN (Max 6 Doses) Indication: . pain nurse admin 1 tab by mouth every 6 hrs as needed for pain SatMar 06 06:00:00 ED2023 Tue Mar 10 12:47:00 ED2023 bisacodyL 5 mg tablet,delayed release 2 tabs TABLET, DELAYED RELEASE (ENTERIC COATED) Oral 1 Time Daily Indication: . constipation SatMar 07 07:00:00 2023 calcium carbonate 500 mg calcium (1,250 mg) chewable tablet 1 tab TABLET,CHEWABLE Oral 1 Time Daily Indication: . Supplement SatMar 07 07:00:00 2023 HumaLOG KwikPen (U-100) Insulin 100 unit/mL subcutaneous SSI INSULIN PEN (ML) Subcutaneous 3 Times Daily Indication: SS insulin SatMar 06 06:00:00 2023 GlucaGen Diagnostic Kit 1 mg/mL Injection 1 mg VIAL (EA) Intramuscular PRN (Max 3 Doses) Indication: . Hypoglycemia Give for blood glucose less than 60 SatMar 06 06:00:00 2023 ergocalciferol (vitamin D2) 1,250 mcg (50,000 unit) capsule 1 capsule CAPSULE Oral 1 Time Weekly Indication: . Vitamin D deficiency SatMar 13 07:00:00 2023 levETIRAcetam 1,000 mg tablet 1 tab Oral 2 Times Daily Indication: . Seizure History SatMar 06 19:00:00 2023 levETIRAcetam 500 mg tablet 1 tab TABLET Oral 2 Times Daily Indication: . Seizure History SatMar 06 19:00:00 2023 Preparation H 0.25 %-14 %-74.9 % ointment 1 OINTMENT WITH APPLICATOR Rectal PRN Every 6 Hours Indication: . Hemorrhoids apply topically for 3 days then PRN SatMar 06 06:00:00 ED2023 hydrALAZINE 50 mg tablet 1 tab TABLET Or al 3 Times Daily Indication: . HTN SatMar 06 19:00:00 EDT 2023 metFORMIN 500 mg tablet 1 tab TABLET Ora l 2 Times Daily Indication: . DM SatMar 06 19:00:00 EDT 2023Apr 03 11:02:00 EDT 2023 potassium chloride ER 20 mEq tablet,extended release(part/cryst) 1 tablet TABLET, EXT RELEASE, PARTICLES/CRYSTALS Oral 1 Time Daily Indication: . hypokalemia SatMar 07 07:00:00 EDT 2023 phentermine 30 mg capsule 30 mg 1 capsule CAPSULE Oral 1 Time Daily Indication: . hours AFTER breakfast Sat Mar 07 11:00:00 EDT 2023 [facility] Mar 25 16:37:00 EDT 2023 FreeStyle Luis 2 Sensor kit 1 kit KIT Topical Every 2 Weeks Indication: . DM nurse admin freestyle sensor every 2 weeks. rotate sites Samantha Mar 19 07:00:00 EDT 2023 [facility] Apr 02 11:03:00 EDT 2023 TubersoL 5 tub. unit/0.1 mL intradermal injection solution 0.1 ml VIAL (ML) Intradermal 1 Time Weekly for 2 Weeks Indication: admission 1st injection on admission, then one week after. Read between 48 and 72 hours Sat Mar 07 07:00:00 EDT 2023 Sat Mar 21 06:59:00 EDT 2023 TubersoL 5 tub. unit/0.1 mL intradermal injection solution Read Results VIAL (ML) Other 1 Time Weekly for 2 Weeks Indication: admission Read results between 48-72 hours after 1st and 2nd (1 week apart). If positive do chest x-ray. SatMar 09 07:00:00 EDT 2023 Mon Mar 23 06:59:00 EDT 2023 FreeStyle Luis 2 Sensor kit 1 kit KIT Topical Every 2 Weeks Indication: DM nurse admin freestyle sensor every 2 weeks. rotate sites SatMar 05 01:00:00 EDT 2023Mar 06 01:00:00 EDT 2023 FreeStyle Luis 2 Sensor kit 1 kit KIT Topical Every 2 Weeks Indication: DM nurse admin freestyle sensor every 2 weeks. rotate sites SatFeb 27 01:00:00 2023Feb 27 20:18:00 ED2023 phentermine 15 mg capsule 15 mg 1 capsule CAPSULE Oral 1 Time Daily for 7 Days Indication: weight loss Nurse Supervision: give 2 hours AFTER breakfast SatJan 06 01:00:00 2023Jan 13 00:59:00 2023 phentermine 30 mg capsule 30 mg 1 capsule CAPSULE Oral 1 Time Daily for 83 Days Indication: weight lossNurse Supervision: give 2 hours AFTER breakfast SatJan 13 07:15:00 2023Mar 06 01:00:00 ED2023 Blood Pressure Kit 1 KIT Other 1 Time W ee Indication: weight changes Weigh resident x1 weekly on WednesdaysJan 07 07:00:00 2023Mar 06 01:00:00 2023 phentermine 15 mg capsule 1 capsule CAPS ULE Oral 1 Time Daily for 7 Days Indication: weight loss MOVEMENT THERAPIST Supervision: give 2 hours AFTER breakfast SatJan 03 01:00:00 2023Jan 04 07:17:00 2023 phentermine 30 mg capsule 1 capsule CAPS ULE Oral 1 Time Daily for 83 Days Indication: weight lossCNA Supervision: give 2 hours AFTER breakfast SatJan 10 01:00:00 2023Jan 04 07:17:00 2023 potassium chloride ER 20 mEq tablet,extended release(part/cryst) 1 tablet TABLET, EXT RELEASE, PARTICLES/CRYSTALS Oral 1 Time Daily Indication: hypokalemia MOVEMENT THERAPIST supervision x1 SatJan 01 01:00:00 2023Mar 06 01:00:00 2023 metFORMIN 500 mg tablet 1 tab TABLET Ora l 2 Times Daily Indication: DM MOVEMENT THERAPIST supervision x1 x4 SatDec 28 01:00:00 2023Mar 06 01:00:00 2023 metOLazone 10 mg tablet 1 tablet TABLET Oral 1 Time Daily for 10 Days Indication: weight gain MOVEMENT THERAPIST supervision. GIVE 30 MINUTES PRIOR TO FUROSEMIDE SatDec 18 13:00:00 2023Dec 28 12:59:00 2023 furosemide 20 mg tablet 1 TABLET Oral 1 Time Daily for 14 Days Indication: edema MOVEMENT THERAPIST to supervise x1 SatNovember 25:00:00 EDT 2023Dec 09 00:59:00 EDT 2023 Blood Pressure Kit 1 KIT Other 8 Times Daily Indication: Toilet Scheduled Q2hrs during the day MOVEMENT THERAPIST to take SatOctober 29 16:45:00 EDT 2023Mar 06 01:00:00 EDT 2023 Blood Pressure Cuff 1 EACH Other 2 Times Daily for 10 Days Indication: Vital signs record BP Daily BID SatOct 08 01:00:00 EDT 2023Oct 18 00:59:00 EDT 2023 FreeStyle Luis 2 Sensor kit 1 kit KIT Topical Every 2 Weeks Indication: DM nurse admin freestyle sensor every 2 weeks. rotate sites SatSep 27 01:00:00 EDT 2023Feb 14 10:01:00 EDT 2023 furosemide 20 mg tablet 1 tab TABLET Ora l 1 Time Daily for 14 Days Indication: edema give with 20 mg dose to =40 mg x 14 days SatSep 01 06:00:00 EST 2023Sep 15 05:59:00 EDT 2023 FreeStyle Luis 2 Sensor kit 1 kit KIT Topical Every 2 Weeks Indication: DM nurse admin freestyle sensor every 2 weeks. rotate sites SatSep 11 12:00:00 EDT 2023Sep 18 19:45:00 EDT 2023 FreeStyle Luis 2 Sensor kit 1 kit KIT Topical Every 2 Weeks Indication: DM nurse admin freestyle sensor every 2 weeks. rotate [facility] SatAug 11 11:00:00 EST 2023 18:08:00 EST 2023 FreeStyle Luis 2 Sensor kit 1 kit KIT Topical Every 2 Weeks Indication: DM nurse admin freestyle sensor every 2 weeks. rotate [facility] SatAug 11 10:01:00 EST 2023Aug 11 12:30:00 EST 2023 FreeStyle Luis 2 Sensor kit 1 kit KIT Topical Every 2 Weeks Indication: DM nurse admin freestyle sensor every 2 weeks. rotate [facility] SatJul 10 07:00:00 EST 2023Aug 08 10:02:00 EST 2023 FreeStyle Luis 2 Sensor kit 1 kit KIT Topical Every 2 Weeks Indication: DM nurse admin freestyle sensor every 2 weeks. rotate [facility] SatJun 13 15:58:00 EST 2022Jun 27 18:43:00 EST 2022 oxyCODONE-acetaminophen 5 mg-325 mg tablet 5-325 mg 1-2 tablets TABLET Oral PRN Every 4 Hours Indication: Pain Do not exceed 5 per day SatJun 14 07:00:00 2022November 12 15:35:00 EDT 2023 Lanjoyce Lucasar U-100 Insulin 100 unit/mL (3 mL) subcutaneous pen 35 units INSULIN PEN (ML) Subcutaneous 1 Time Daily Indication: DMnurse admin SatJun 14 16:00:00 2022Mar 06 01:00:00 EDT 2023 polyethylene glycoL 3350 17 gram oral powder packet 17 grams POWDER IN PACKET (EA) Oral Every 1 Day Indication: constipationCNA supervision x1 SatJun 15 01:00:00 2022Mar 06:00:00 EDT 2023 sennosides 8.6 mg tablet 1 tablet TABLET Oral PRN 2 Times Daily Indication: Constipation Indication: SatJun 14 07:00:00 EST 2022Mar 06 01:00:00 EDT 2023 B Complex-Vitamin B12 tablet 1 tablet TABLET Oral 1 Time Daily Indication: SupplementCNA supervision Sterilisation Technician x1 SatJun 15 07:00:00 EST 2022Mar 06 01:00:00 EDT 2023 acetaminophen ER 650 mg tablet,extended release 1 tablet TABLET, EXTENDED RELEASE Oral PRN (Max 6 Doses) Indication: pain nurse admin 1 tab by mouth every 6 hrs as needed for pain SatJun 14 16:12:00 2022Mar 06 01:00:00 EDT 2023 bisacodyL 5 mg tablet,delayed release 2 tabs TABLET, DELAYED RELEASE (ENTERIC COATED) Oral 1 Time Daily Indication: constipation MOVEMENT THERAPIST supervision x1 SatJun 15 01:00:00 EST 2022Mar 06 01:00:00 EDT 2023 calcium carbonate 500 mg calcium (1,250 mg) chewable tablet 1 tab TABLET,CHEWABLE Oral 1 Time Daily Indication: Supplement MOVEMENT THERAPIST Supervision Sterilisation Technician x1 SatJun 15 07:00:00 2022Mar 06 01:00:00 EDT 2023 HumaLOG KwikPen (U-100) Insulin 100 unit/mL subcutaneous SSI INSULIN PEN (ML) Subcutaneous 3 Times Daily Indication: DM Sliding Scale Insulin: Insulin Units < 70 or > 401 Notify MD;151-200, 3 Units;201-250, 6 Units;251-300, 9 Units;301-350, 12 Units;351-400, 15 Units;401-450, 18 Units;. SatJun 14 16:35:00 2022Mar 06 01:00:00 EDT 2023 GlucaGen Diagnostic Kit 1 mg/mL Injection 1 mg VIAL (EA) Intramuscular PRN (Max 3 Doses) Indication: Hypoglycemia Give for blood glucose less than 60 SatJun 14 07:00:00 EST 2022Mar 06 01:00:00 EDT 2023 ergocalciferol (vitamin D2) 1,250 mcg (50,000 unit) capsule 1 capsule CAPSULE Oral 1 Time Weekly Indication: Vitamin D deficiency MOVEMENT THERAPIST Supervision Sterilisation Technician x1 SatJun 21 07:00:00 EST 2022Mar 06 01:00:00 EDT 2023 potassium chloride ER 10 mEq tablet,extended release 1 tab Oral 1 Time Daily Indication: Dx: Hypokalemia MOVEMENT THERAPIST Supervision Sterilisation Technician x1 SatJun 15 07:00:00 EST 2022Dec 31 19:11:00 EDT 2023 levETIRAcetam 1,000 mg tablet 1 tab Oral 2 Times Daily Indication: Seizure History MOVEMENT THERAPIST Supervision Sterilisation Technician x1 Early Evening x4 SatJun 14 16:45:00 EST 2022Mar 06 01:00:00 EDT 2023 levETIRAcetam 500 mg tablet 1 tab TABLET Oral 2 Times Daily Indication: Seizure History MOVEMENT THERAPIST Supervision Sterilisation Technician x1 Early Evening x4 SatJun 14 16:48:00 EST 2022Mar 06 01:00:00 EDT 2023 Hemorrhoidal(phenyleph-min oil-petrolat)0.25 %-14 %-74.9 % rectal oint 1 OINTMENT WITH APPLICATOR Rectal Every 6 Hours for 3 Days Indication: Hemorrhoids apply topically for 3 days then PRN SatJun 15 01:00:00 EST 2022Jun 18 00:59:00 EST 2022 Preparation H 0.25 %-14 %-74.9 % ointment 1 OINTMENT WITH APPLICATOR Rectal PRN Every 6 Hours Indication: Hemorrhoids apply topically for 3 days then PRN SatJun 18 01:00:00 EST 2022Mar 06 01:00:00 EDT 2023 hydrALAZINE 50 mg tablet 1 tab TABLET Or al 3 Times Daily Indication: HTN MOVEMENT THERAPIST supervision x1, x2, x4 SatJun 14 16:00:00 2022Mar 06 01:00:00 EDT 2023 Novofine Autocover 30 gauge x 1/3 needle needles NEEDLE, DISPOSABLE Subcutaneous Continuous Indication: Box of flex pen needles for humalog & lantus pens SatJun 09 20:00:00 2022Jun 14:00:00 EST 2022 levETIRAcetam 500 mg tablet 1500 mg Oral 2 Times Daily Indication: Seizure SatMay 27 21:00:00 2022May 27 07:11:00 EST 2022 levETIRAcetam 500 mg tablet 1500 mg Oral 1 Time Daily Indication: Seizure SatMay 23 10:00:00 EST 2022May 27 11:25:00 EST 2022 levETIRAcetam 1,000 mg tablet 1500 mg Oral 2 Times Daily Indication: Seizure History SatMay 23 15:00:00 2022Jun 14 01:00:00 2022 Novofine Autocover 30 gauge x 1/3 needle one NEEDLE, DISPOSABLE Subcutaneous PRN Indication: DM II SatMay 13 03:00:00 2022Jun 14:00:00 EST 2022 levETIRAcetam 1,000 mg tablet 2,000mg TABLET Oral 1 Time Daily Indication: Seizures SatMay 14 09:00:00 2022May 23 10:58:00 2022 levETIRAcetam 1,000 mg tablet 1500 mg TABLET Oral 1 Time Daily Indication: Seizures 1500 mg HS SatMay 13 21:00:00 2022May 23 04:50:00 EST 2022 levETIRAcetam 500 mg tablet 2000 mg Oral 1 Time Daily Indication: Seizure SatMay 13 10:00:00 EST 2022May 27 11:25:00 EST 2022 ergocalciferol (vitamin D2) 1,250 mcg (50,000 unit) capsule 1 capsule CAPSULE Oral 1 Time Weekly Indication: Vitamin D deficiency SatMay 09 11:00:00 2022Jun 14 01:00:00 EST 2022 Nasal [place] (sodium chloride) 0.65 % aerosol 1 spray AEROSOL, SPRAY (ML) Intranasal PRN Every 1 Hour Indication: dry nasal passagesnurse admin SatMay 08 12:17:00 2022Jun 14 17:09:00 EST 2022 rizatriptan 10 mg tablet 1 tab TABLET Or al PRN Every 2 Hours Indication: headaches nurse adminMay repeat dose every 2 hours to a maximum of 30mg in 24 hours SatMay 08 12:19:00 2022Mar 06 01:00:00 EDT 2023 HumaLOG KwikPen (U-100) Insulin 100 unit/mL subcutaneous 15 units INSULIN PEN (ML) Subcutaneous 3 Times Daily Indication: DM nurse admin Before meals SatMay 08 12:21:00 2022Mar 06 01:00:00 EDT 2023 Lantus U-100 Insulin 100 unit/mL subcutaneous solution 35 units VIAL (ML) Subcutaneous 1 Time Daily Indication: DMnurse admin SatMay 08 12:22:00 2022Jun 14 16:05:00 2022 Blood Pressure Kit 1 KIT Other 2 Times Monthly Indication: Vitals MOVEMENT THERAPIST supervision, MOVEMENT THERAPIST obtain the vitals SatMay 08 12:23:00 2022Mar 06 01:00:00 EDT 2023 Eliquis 2.5 mg tablet 1 tab TABLET Oral 2 Times Daily Indication: metabolic encephalopathyCNA supervision x1 x4 SatMay 08 12:24:00 2022Mar 06 01:00:00 EDT 2023 nystatin 100,000 unit/gram topical powder 1 gram POWDER (GRAM) Topical PRN 2 Times Daily Indication: rash apply to affected areas PRNnurse admin: cleanse and pat dry area then apply powder SatMay 08 12:25:00 2022Mar 06 01:00:00 EDT 2023 polyethylene glycoL 3350 17 gram oral powder packet 17 grams POWDER IN PACKET (EA) Oral Every 2 Days Indication: constipationCNA supervision x1 SatMay 08 12:26:00 2022Jun 14 16:08:00 2022 Eucerin topical cream 1 CREAM (GRAM) Top ical PRN 2 Times Daily Indication: dry skin nurse admin: apply to dry skin PRN SatMay 08 12:27:00 2022Mar 06 01:00:00 EDT 2023 insulin lispro (U-100) 100 unit/mL subcutaneous solution Sliding VIAL (ML) Subcutaneous 3 Times Daily Indication: DM nurse admin x1 x2 [id number] Scale Insulin: Insulin Units> 400, Notify ;151-200, 1 Units;201-250, 2 Units;251-300, 4 Units;301-350, 6 Units;351-400, 8 Units;. SatMay 08 12:28:00 2022Jun 14 16:33:00 2022 multivitamin tablet 1 TABLET Oral 2 Time s Daily Indication: vitamin MOVEMENT THERAPIST supervision x1 x4 SatMay 08 12:29:00 EST 2022Jun 14 17:10:00 2022 Pen Needle 30 gauge x 5/16 1 applicatio n NEEDLE, DISPOSABLE Other 4 Times Daily Indication: insulin needlenurse admin x1 x2 x3 x4 SatMay 08 12:30:00 EST 2022Mar 06 01:00:00 EDT 2023 lactulose 10 gram/15 mL (15 mL) oral solution 15ml SOLUTION, ORAL Oral PRN 2 Times Daily Indication: constipationnurse admin SatMay 08 12:31:00 EST 2022Mar 06 01:00:00 EDT 2023 cyanocobalamin (vit B-12) 500 mcg tablet 1 tablet TABLET Oral 1 Time Daily Indication: supplementCNA supervision x1 SatMay 08 12:32:00 2022Jun 14 17:10:00 2022 cyanocobalamin (vit B-12) 500 mcg tablet 1 tab TABLET Oral 1 Time Daily Indication: supplement MOVEMENT THERAPIST supervision x1two 500mcg tabs = 1,000mcg total SatMay 08 12:34:00 2022Jun 14 17:10:00 2022 furosemide 20 mg tablet 1 tab TABLET Ora l 1 Time Daily Indication: edemaCNA supervision x1 SatMay 08 12:35:00 EST 2022Mar 06 01:00:00 EDT 2023 nystatin 100,000 unit/gram topical powder BID POWDER (GRAM) Topical 2 Times Daily nurse admin powder to groin topically/affected areas/fungal. BID until healed then PRN Indication: fungal infection SatMay 08 12:36:00 EST 2022Mar 06 01:00:00 EDT 2023 FreeStyle Luis 2 Sensor kit 1 kit KIT Topical Every 2 Weeks Indication: DM nurse admin freestyle sensor every 2 weeks. rotate sites SatMay 08 12:37:00 2022Jun 14 15:59:00 2022 GlucaGen Diagnostic Kit 1 mg/mL Injection 1 mg VIAL (EA) Intramuscular PRN (Max 3 Doses) Indication: Hypoglycemia Give for blood glucose less than 60 SatMay 08 09:00:00 2022Jun 14 01:00:00 EST 3 TubersoL 5 tub. unit/0.1 mL intradermal injection solution 0.1 ml VIAL (ML) Intradermal 1 Time Weekly for 2 Weeks Indication: TB Test 1st injection on admission, then one week after. Read between 48 and 72 hours SatMay 08 15:00:00 2022May 22 14:59:00 2022 TubersoL 5 tub. unit/0.1 mL intradermal injection solution Read Results VIAL (ML) Other 1 Time Weekly for 2 Weeks Indication: TB TEST Read results between 48-72 hours after 1st and 2nd (1 week apart). If positive do chest x-ray. SatMay 08 09:00:00 2022May 22 08:59:00 2022 oxyCODONE-acetaminophen 5 mg-325 mg tablet 1-2 tablets TABLET Oral PRN Every 4 Hours Indication: Pain; Do not exceed 5 per day SatMay 07 16:00:00 2022Jun 14:00:00 2022 Eliquis 2.5 mg tablet 1 tablet TABLET Or al 2 Times Daily Indication: DVT proph SatMay 07 16:00:00 2022Jun 14:00:00 2022 DULoxetine 30 mg capsule,delayed release 1 capsule CAPSULE,DELAYED RELEASE (ENTERIC COATED) Oral 1 Time Daily Indication: Depression SatMay 07 11:00:00 2022Jun 14:00:00 2022 famotidine 20 mg tablet 1 tablet TABLET Oral 1 Time Daily Indication: GERD SatMay 07 16:00:00 2022Jun 14:00:00 2022 fluticasone propionate 50 mcg/actuation nasal spray,suspension 1 spray SPRAY, SUSPENSION Intranasal 2 Times Daily Indication: Rhinitis SatMay 07 16:00:00 2022May 07 18:21:00 2022 gabapentin 300 mg capsule 1 capsule CAPS ULE Oral 2 Times Daily Indication: Neuropathy SatMay 07 16:00:00 2022Jun 14:00:00 2022 Langeraldous Solostar U-100 Insulin 100 unit/mL (3 mL) subcutaneous pen 35 Units INSULIN PEN (ML) Subcutaneous 1 Time Daily Indication: DM SatMay 07 16:00:00 2022Jun 14:00:00 2022 OXcarbazepine 300 mg tablet 1 tablet TAB LET Oral 2 Times Daily Indication: Seizures SatMay 07 16:00:00 EST 2022Jun 14 01:00:00 EST 2022 polyethylene glycoL 3350 17 gram/dose oral powder 17 grams POWDER (GRAM) Oral 1 Time Daily Indication: Constipation SatMay 07 18:00:00 EST 2022Jun 14 01:00:00 EST 2022 sennosides 8.6 mg tablet 1 tablet TABLET Oral PRN 2 Times Daily Indication: Constipation SatMay 07 16:00:00 EST 2022Jun 14 01:00:00 EST 2022 B Complex-Vitamin B12 tablet 1 tablet TABLET Oral 1 Time Daily Indication: Supplement SatMay 07 16:00:00 EST 2022Jun 14 01:00:00 EST 2022 acetaminophen ER 650 mg tablet,extended release 1 tablet TABLET, EXTENDED RELEASE Oral PRN Every 6 Hours Indication: Pain SatMay 07 16:00:00 EST 2022Jun 14 01:00:00 EST 2022 amLODIPine 10 mg tablet 1 tablet TABLET Oral 1 Time Daily Indication: HTN SatMay 07 16:00:00 EST 2022Jun 14 01:00:00 EST 2022 bisacodyL 5 mg tablet,delayed release 10mg TABLET, DELAYED RELEASE (ENTERIC COATED) Oral 1 Time Daily Indication: Constipation SatMay 07 16:00:00 2022Jun 14:00:00 EST 2022 calcium carbonate 500 mg calcium (1,250 mg) chewable tablet 1,100mg TABLET,CHEWABLE Oral 1 Time Daily Indication: Supplement SatMay 07 16:00:00 EST 2022Jun 14 01:00:00 EST 2022 cloNIDine HCL 0.1 mg tablet 1 tablet TAB LET Oral 2 Times Daily Indication: HTN SatMay 07 16:00:00 EST 2022Jun 14 01:00:00 EST 2022 dexAMETHasone 6 mg tablet 1 tablet TABLE T Oral 1 Time Daily Indication: Brain CA SatMay 07 16:00:00 2022Jun 14 01:00:00 EST 2022 hydrALAZINE 50 mg tablet 1 tablet TABLET Oral 3 Times Daily Indication: HTN SatMay 07 17:00:00 EST 2022Jun 14 01:00:00 EST 2022 HumaLOG KwikPen (U-100) Insulin 100 unit/mL subcutaneous 15 Units INSULIN PEN (ML) Subcutaneous 3 Times Daily Indication: DM SatMay 07 16:00:00 2022Jun 14 01:00:00 EST 2022 Eucerin topical cream 1 application CREA M (GRAM) Topical 2 Times Daily Indication: Apply to BLE d/t dry skin SatMay 07 16:00:00 2022Jun 14:00:00 EST 2022 levETIRAcetam 1,000 mg tablet 2,000mg TABLET Oral 2 Times Daily Indication: Seizures SatMay 07 16:00:00 2022May 13 18:35:00 EST 2022 magnesium 400 mg (as magnesium oxide) tablet 1 tablet TABLET Oral 1 Time Daily Indication: Supplement SatMay 07 16:00:00 2022Jun 14:00:00 EST 2022 nystatin 100,000 unit/gram topical powder 1 application POWDER (GRAM) Topical 2 Times Daily Indication: Apply powder to bilateral groin BID d/t fungal rash SatMay 07 17:00:00 2022Jun 14:00:00 EST 2022 potassium chloride ER 10 mEq tablet,extended release(part/cryst) 1 tablet TABLET, EXT RELEASE, PARTICLES/CRYSTALS Oral 1 Time Daily Indication: Hypokalemia SatMay 07 16:00:00 2022May 23 04:50:00 2022 rizatriptan 10 mg tablet 1 tablet TABLET Oral PRN (Max 3 Doses) Indication: may repeat dose q2hrs, MAX DOSE 30MG in 24 hoursMigraine Headache SatMay 07 16:00:00 2022Jun 14 01:00:00 2022 furosemide 20 mg tablet 1 tablet TABLET Oral 1 Time Daily Indication: Edema SatMay 07 16:00:00 2022Jun 14:00:00 EST 2022 lactulose 10 gram/15 mL oral solution 15mL SOLUTION, ORAL Oral PRN 2 Times Daily Indication: Constipation SatMay 07 16:00:00 2022Jun 14:00:00 EST 2022 HumaLOG KwikPen (U-100) Insulin 100 unit/mL subcutaneous SSI INSULIN PEN (ML) Subcutaneous 3 Times Daily Indication: DM Sliding Scale Insulin: Insulin Units < 70 or > 401 Notify MD;151-200, 3 Units;201-250, 6 Units;251-300, 9 Units;301-350, 12 Units;351-400, 15 Units;401-450, 18 Units;. SatMay 07 16:00:00 EST 2022Jun 14 01:00:00 EST 2022 potassium chloride ER 10 mEq tablet,extended release 10 meq Oral 1 Time Daily Indication: Dx: Hypokalemia SatMay 07 10:00:00 EST 2022Jun 14 01:00:00 EST 2022 FreeStyle Luis 2 Sensor kit 1 kit KIT Topical Every 2 Weeks Indication: DM change freestyle sensor every 2 weeks. rotate sites SatMay 01 01:00:00 EDT 2022May 08 12:39:00 EST 2022 nystatin 100,000 unit/gram topical powder BID POWDER (GRAM) Topical 2 Times Daily apply powder to groin topically/affected areas/fungal. BID until healed then PRN Indication: fungal infection SatApr 17 16:00:00 EDT 2022May 08 12:38:00 EST 2022 furosemide 20 mg tablet 1 tab TABLET Ora l 1 Time Daily Indication: edema SatApr 17 01:00:00 EDT 2022May 08 12:37:00 EST 2022 Blood Pressure Kit 1 KIT Other 1 Time W eekly for 8 Weeks Indication: Weight Gain Weekly weight [address] ONLY SatApr 18 01:00:00 EDT 2022Jun 13 00:59:00 EST 2022 FreeStyle Luis 2 Sensor kit 1 kit KIT Topical Every 2 Weeks Indication: DM change freestyle sensor every 2 weeks. rotate sites SatApr 09 11:53:00 EDT 2022Apr 23 09:54:00 EDT 2022 furosemide 40 mg tablet 1 tab TABLET Ora l 2 Times Daily for 7 Days Indication: edema MOVEMENT THERAPIST supervision x1, x3 SatApr 03 01:00:00 EDT 2022Apr 10 00:59:00 EDT 2022 furosemide 40 mg tablet 1 tab TABLET Ora l 1 Time Daily Indication: edema MOVEMENT THERAPIST supervision x1 SatApr 10 01:00:00 EDT 2022Apr 16 15:53:00 EDT 2022 cyanocobalamin (vit B-12) 500 mcg tablet 1 tab TABLET Oral 1 Time Daily Indication: supplement MOVEMENT THERAPIST x12 500mcg tabs = 1,000mcg total SatMar 07 01:00:00 EDT 2022May 08 12:35:00 EST 2022 FreeStyle Luis 2 Sensor kit 1 kit KIT Topical Every 2 Weeks Indication: DM change freestyle sensor every 2 weeks. rotate sites SatMar 11 07:27:00 EDT 2022Apr 09 11:54:00 EDT 2022 cyanocobalamin (vit B-12) 500 mcg tablet 1 tablet TABLET Oral 1 Time Daily Indication: supplementcna x1 SatFeb 05 07:00:00 EDT 2022May 08 12:34:00 EST 2022 FreeStyle Luis 2 Sensor kit 1 kit KIT Topical Every 2 Weeks Indication: DM change freestyle sensor every 2 weeks. rotate [facility] SatFeb 03 07:00:00 EDT 2022Feb 27 07:28:00 EDT 2022 FreeStyle Luis 2 Sensor kit 1 kit KIT Topical Every 2 Weeks Indication: DM change freestyle sensor every 2 weeks. rotate [facility] SatFeb 04 01:00:00 EDT 2022Feb 04 18:43:00 EDT 2022 FreeStyle Luis 2 Sensor kit 1 kit KIT Topical Every 2 Weeks Indication: DM change freestyle sensor every 2 weeks. rotate [facility] SatFeb 02 01:00:00 EDT 2022Feb 02 15:29:00 EDT 2022 acetaminophen 325 mg tablet 2 tabs TABLE T Oral 4 Times Daily Indication: pain MOVEMENT THERAPIST supervision x1, x2, x3, & x4 SatJan 10 01:00:00 EDT 2022Jun 14 16:14:00 EST 2022 FreeStyle Luis 2 Sensor kit 1 kit KIT Topical Every 2 Weeks Indication: DM change freestyle sensor every 2 weeks. rotate [facility] SatDec 20 01:00:00 EDT 2022Jan 31 07:56:00 EDT 2022 lactulose 10 gram/15 mL (15 mL) oral solution 15ml SOLUTION, ORAL Oral PRN 2 Times Daily Indication: constipation SatDec 17 14:44:00 EDT 2022May 08 12:33:00 EST 2022 Pen Needle 30 gauge x 5/16 1 applicatio n NEEDLE, DISPOSABLE Other 4 Times Daily Indication: insulin needle SatDec 16 18:00:00 EDT 2022May 08 12:31:00 EST 2022 lactulose 10 gram/15 mL (15 mL) oral solution 15ml SOLUTION, ORAL Oral 2 Times Daily Indication: constipation until 2 BMS then change to PRN SatDec 14 07:00:00 EDT 2022Dec 17 14:45:00 EDT 2022 acetaminophen 325 mg tablet 2 tabs TABLE T Oral 1 Time Daily Indication: pain MOVEMENT THERAPIST x 4 SatDec 06 07:00:00 EDT 2022Jan 09 18:31:00 EDT 2022 insulin lispro (U-100) 100 unit/mL subcutaneous solution Sliding VIAL (ML) Subcutaneous 3 Times Daily Indication: DM Sliding Scale Insulin: Insulin Units> 400, Notifaileen JEFFRIES;151-200, 1 Units;201-250, 2 Units;251-300, 4 Units;301-350, 6 Units;351-400, 8 Units;. SatDec 05 13:47:00 EDT 2022May 08 12:30:00 EST 2022 cloNIDine HCL 0.1 mg tablet 1 tablet TAB LET Oral 2 Times Daily Indication: HTN MOVEMENT THERAPIST supervision x1 x4 SatDec 05 20:41:00 EDT 2022Mar 06 01:00:00 EDT 2023 multivitamin tablet 1 TABLET Oral 2 Time s Daily Indication: vitamin MOVEMENT THERAPIST x1 x4 SatDec 06 01:00:00 EDT 2022May 08 12:31:00 EST 2022 Eucerin topical cream 1 CREAM (GRAM) Top ical PRN 2 Times Daily Indication: dry skin apply to dry skin PRN SatDec 02 13:12:00 EDT 2022May 08 12:28:00 EST 2022 nystatin 100,000 unit/gram topical powder 1 gram POWDER (GRAM) Topical PRN 2 Times Daily Indication: rash apply to affected areas PRNcleanse and pat dry area then apply powder SatDec 01 08:50:00 EDT 2022May 08 12:27:00 EST 2022 polyethylene glycoL 3350 17 gram oral powder packet 17 grams POWDER IN PACKET (EA) Oral Every 2 Days Indication: constipationCNA x1 SatDec 01 15:31:00 EDT 2022May 08 12:27:00 EST 2022 Eliquis 2.5 mg tablet 1 tab TABLET Oral 2 Times Daily Indication: metabolic encephalopathy MOVEMENT THERAPIST x1 x4 SatNovember 23 01:00:00 EDT 2022May 08 12:26:00 EST 2022 Blood Pressure Kit 1 KIT Other 1 Time D aily for 14 Days Indication: record all pressures x14 daysCNA to obtain. SatNovember 23 01:00:00 EDT 2022Dec 07 00:59:00 EDT 2022 Prevnar 20 (PF) 0.5 mL intramuscular syringe 1 syringe SYRINGE (ML) Intramuscular 1 Time Daily for 1 Day Indication: vaccine SatNovember 07 01:00:00 EDT 2022November 07 17:58:00 EDT 2022 Prevnar 20 (PF) 0.5 mL intramuscular syringe 1 syringe SYRINGE (ML) Intramuscular 1 Time Daily for 1 Day Indication: vaccine SatNovember 10 01:00:00 EDT 2022November 11 00:59:00 EDT 2022 nystatin 100,000 unit/gram topical powder 1 gram POWDER (GRAM) Topical 2 Times Daily Indication: rash apply to Rt underarm r/t rash cleanse and pat dry area then apply powder SatNovember 07 01:00:00 EDT 2022Dec 01 08:51:00 EDT 2022 Blood Pressure Kit 1 KIT Other 2 Times Monthly Indication: Vitals MOVEMENT THERAPIST obtain the vitals SatNovember 16 01:00:00 EDT 2022May 08 12:25:00 EST 2022 Pen Needle 30 gauge x 5/16 1 applicatio n NEEDLE, DISPOSABLE Other 4 Times Daily Indication: insulin needle SatNovember 02 01:00:00 EDT 2022November 23 11:43:00 EDT 2022 TUBErsoL 5 tub. unit/0.1 mL intradermal injection solution 0.1 ml VIAL (ML) Intradermal 1 Time Weekly for 2 Weeks Indication: New admission 1st injection on admission, then one week after. Read between 48 and 72 hours SatOctober 31 17:00:00 EDT 2022November 14 16:59:00 EDT 2022 TUBErsoL 5 tub. unit/0.1 mL intradermal injection solution Read Results VIAL (ML) Other 1 Time Weekly for 2 Weeks Indication: New admission Read results between 48-72 hours after 1st and 2nd (1 week apart). If positive do chest x-ray. SatOctober 31 17:00:00 EDT 2022November 14 16:59:00 EDT 2022 insulin lispro (U-100) 100 unit/mL subcutaneous solution Sliding VIAL (ML) Subcutaneous 4 Times Daily Indication: DM Sliding Scale Insulin: Insulin Units> 400, Portia JEFFRIES;151-200, 1 Units;201-250, 2 Units;251-300, 4 Units;301-350, 6 Units;351-400, 8 Units;. SatOctober 31 17:02:00 EDT 2022Dec 05 13:52:00 EDT 2022 acetaminophen 325 mg tablet 2 tablets TA BLET Oral PRN (Max 4 Doses) Indication: pain 2 tablets by mouth every 6 hrs as needed for pain SatOctober 30 17:30:00 EDT 2022May 08 12:17:00 EST 2022 amLODIPine 10 mg tablet 1 tablet TABLET Oral 1 Time Daily Indication: HTN MOVEMENT THERAPIST supervision x 1 SatOctober 30 17:30:00 EDT 2022Mar 06 01:00:00 EDT 2023 cloNIDine HCL 0.1 mg tablet 1/2 tablet T ABLET Oral 2 Times Daily Indication: HTN MOVEMENT THERAPIST supervision x1 x4 SatOctober 30 17:30:00 EDT 2022Dec 05 20:42:00 EDT 2022 dexAMETHasone 6 mg tablet 1 tablet TABLE T Oral 1 Time Daily Indication: Metabolic Encephalopathy MOVEMENT THERAPIST supervision x1 SatOctober 30 17:30:00 EDT 2022Mar 06 01:00:00 EDT 2023 bisacodyL 5 mg tablet,delayed release 2 tabs TABLET, DELAYED RELEASE (ENTERIC COATED) Oral 1 Time Daily Indication: constipation MOVEMENT THERAPIST supervision x4 SatOctober 30 17:30:00 EDT 2022Jun 14 16:16:00 EST 2022 DULoxetine 30 mg capsule,delayed release 1 capsule CAPSULE,DELAYED RELEASE (ENTERIC COATED) Oral 1 Time Daily Indication: anxiety MOVEMENT THERAPIST supervision x1 SatOctober 30 17:30:00 EDT 2022Mar 06 01:00:00 EDT 2023 enoxaparin 40 mg/0.4 mL subcutaneous syringe 0.4mL SYRINGE (ML) Subcutaneous 1 Time Daily Indication: prevent blood clots Nurse administration SatOctober 30 17:30:00 EDT 2022November 22 21:25:00 EDT 2022 famotidine 20 mg tablet 1 tab TABLET Ora l 1 Time Daily Indication: GERD MOVEMENT THERAPIST supervision x1 SatOctober 30 17:30:00 EDT 2022Mar 06 01:00:00 EDT 2023 fluticasone propionate 50 mcg/actuation nasal spray,suspension 1 spray SPRAY, SUSPENSION Intranasal - Both Nostrils PRN 2 Times Daily Indication: allergies Nurse administration SatOctober 30 17:30:00 ED2022Jun 14 17:09:00 EST 2022 furosemide 40 mg tablet 1/2 tab TABLET O ral 1 Time Daily Indication: edema MOVEMENT THERAPIST Supervision x11/2 tab = 20mg SatOctober 30 17:40:00 EDT 2022Apr 02 20:24:00 EDT 2022 gabapentin 300 mg capsule 1 capsule CAPS ULE Oral 2 Times Daily Indication: diabetic neuropathy MOVEMENT THERAPIST Supervision x1, x4 SatOctober 30 17:30:00 EDT 2022Mar 06 01:00:00 EDT 2023 hydrALAZINE 50 mg tablet 1 tab TABLET Or al 3 Times Daily Indication: HTN MOVEMENT THERAPIST supervision x1, x2, x3 SatOctober 30 17:30:00 EDT 2022Jun 14 20:03:00 EST 2022 levETIRAcetam 1,000 mg tablet 2 tabs TABLET Oral 2 Times Daily Indication: seizures MOVEMENT THERAPIST supervision x1, x3 SatOctober 30 17:30:00 EDT 2022Jun 14 16:45:00 EST 2022 magnesium oxide 400 mg (241.3 mg magnesium) tablet 1 tab TABLET Oral 1 Time Daily Indication: GERD MOVEMENT THERAPIST supervision x1 SatOctober 30 17:30:00 EDT 2022Mar 06 01:00:00 EDT 2023 OXcarbazepine 300 mg tablet 1 tab TABLET Oral 2 Times Daily Indication: seizures MOVEMENT THERAPIST supervision x1, x4 SatOctober 30 17:30:00 EDT 2022Mar 06 01:00:00 EDT 2023 polyethylene glycoL 3350 17 gram/dose oral powder 17 grams POWDER (GRAM) Oral PRN 1 Time Daily Indication: constipation SatOctober 30 17:30:00 EDT 2022Dec 01 15:38:00 EDT 2022 potassium chloride ER 20 mEq tablet,extended release 1/2 tab TABLET, EXTENDED RELEASE Oral 1 Time Daily Indication: metabolic encephalopathy MOVEMENT THERAPIST supervision x1 SatOctober 30 17:30:00 EDT 2022Jun 14 16:42:00 EST 2022 Nasal [place] (sodium chloride) 0.65 % aerosol 1 spray AEROSOL, SPRAY (ML) Intranasal PRN Every 1 Hour Indication: dry nasal passages SatOctober 30 17:30:00 EDT 2022May 08 12:19:00 EST 2022 rizatriptan 10 mg tablet 1 tab TABLET Or al PRN Every 2 Hours Indication: headaches May repeat dose every 2 hours to a maximum of 30mg in 24 hours SatOctober 30 17:30:00 EDT 2022May 08 12:20:00 EST 2022 Stimulant Laxative Plus 8.6 mg-50 mg tablet 1 tab TABLET Oral 2 Times Daily Indication: constipation MOVEMENT THERAPIST supervision x1, x4 SatOctober 30 17:30:00 EDT 2022Jun 14 17:09:00 EST 2022 calcium carbonate 200 mg calcium (500 mg) chewable tablet 2 tabs TABLET,CHEWABLE Oral PRN 3 Times Daily Indication: GERD SatOctober 30 17:30:00 EDT 2022May 08 12:22:00 EST 2022 HumaLOG KwikPen (U-100) Insulin 100 unit/mL subcutaneous 15 units INSULIN PEN (ML) Subcutaneous 3 Times Daily Indication: DM Before meals SatOctober 30 17:30:00 EDT 2022May 08 12:23:00 EST 2022 insulin lispro (U-100) 100 unit/mL subcutaneous solution Sliding VIAL (ML) Subcutaneous 4 Times Daily Indication: DM Sliding Scale Insulin: Insulin Units> 400, Portia JEFFRIES;151-200, 1 Units;201-250, 2 Units;251-300, 4 Units;301-350, 6 Units;351-400, 8 Units;. SatOctober 30 17:30:00 EDT 2022October 31 17:05:00 EDT 2022 Lantus U-100 Insulin 100 unit/mL subcutaneous solution 35 units VIAL (ML) Subcutaneous 1 Time Daily Indication: DM SatOctober 30 17:30:00 EDT 2022May 08 12:24:00 EST 2022 Problems Active Concerns * Chronic obstructive pulmonary disease, unspecified* Code: * Start Date: SatOctober 30 00:00:00 EDT 2022 * End Date: * Text: * Gastro-esophageal reflux disease without esophagitis* Code: * Start Date: SatOctober 30 00:00:00 EDT 2022 * End Date: * Text: * Type 2 diabetes mellitus with diabetic chronic kidney disease* Code: * Start Date: SatOctober 30 00:00:00 EDT 2022 * End Date: * Text: * Personal history of malignant neoplasm of brain* Code: * Start Date: SatOctober 30 00:00:00 EDT 2022 * End Date: * Text: * Other postprocedural complications and disorders of nervous system* Code: * Start Date: SatOctober 30 00:00:00 EDT 2022 * End Date: * Text: * Aphasia* Code: * Start Date: SatOctober 30 00:00:00 EDT 2022 * End Date: * Text: * Other seizures* Code: * Start Date: SatOctober 30 00:00:00 EDT 2022 * End Date: * Text: * Hyperlipidemia, unspecified* Code: * Start Date: SatOctober 30 00:00:00 EDT 2022 * End Date: * Text: * Hypertensive chronic kidney disease with stage 1 through stage 4 chronic kidney disease, or unspecified chronic kidney disease* Code: * Start Date: SatOctober 30 00:00:00 EDT 2022 * End Date: * Text: * Personal history of antineoplastic chemotherapy* Code: * Start Date: SatOctober 30 00:00:00 EDT 2022 * End Date: * Text: * Hemiplegia, unspecified affecting right dominant side* Code: * Start Date: SatOctober 30 00:00:00 EDT 2022 * End Date: * Text: * Type 2 diabetes mellitus with hyperglycemia* Code: * Start Date: SatOctober 30 00:00:00 EDT 2022 * End Date: * Text: * intermission coordinator (current) use of insulin* Code: * Start Date: SatOctober 30 00:00:00 EDT 2022 * End Date: * Text: * Personal history of irradiation* Code: * Start Date: SatOctober 30 00:00:00 EDT 2022 * End Date: * Text: * Hypokalemia* Code: * Start Date: SatOctober 30 00:00:00 EDT 2022 * End Date: * Text: * Hypomagnesemia* Code: * Start Date: SatOctober 30 00:00:00 EDT 2022 * End Date: * Text: * Major depressive disorder, single episode, unspecified* Code: * Start Date: SatOctober 30 00:00:00 EDT 2022 * End Date: * Text: * Generalized anxiety disorder* Code: * Start Date: SatOctober 30 00:00:00 EDT 2022 * End Date: * Text: * Deficiency of other specified B group vitamins* Code: * Start Date: SatOctober 30 00:00:00 EDT 2022 * End Date: * Text: * Type 2 diabetes mellitus with diabetic polyneuropathy* Code: * Start Date: SatOctober 30 00:00:00 EDT 2022 * End Date: * Text: * Candidiasis of skin and nail* Code: * Start Date: SatApr 18 00:00:00 EDT 2022 * End Date: * Text: * Unspecified urinary incontinence* Code: * Start Date: SatApr 18 00:00:00 EDT 2022 * End Date: * Text: * Presence of right artificial hip joint* Code: * Start Date: SatMay 07 00:00:00 EST 2022 * End Date: * Text: * Primary osteoarthritis, left shoulder* Code: * Start Date: SatMay 07 00:00:00 EST 2022 * End Date: * Text: * Other chronic pain* Code: * Start Date: SatMay 07 00:00:00 EST 2022 * End Date: * Text: * Slow transit constipation* Code: * Start Date: SatMay 07 00:00:00 EST 2022 * End Date: * Text: * Obstructive sleep apnea (adult) (pediatric)* Code: * Start Date: SatMay 07 00:00:00 EST 2022 * End Date: * Text: * intermission coordinator (current) use of systemic steroids* Code: * Start Date: SatMay 07 00:00:00 2022 * End Date: * Text: * USP (current) use of opiate analgesic* Code: * Start Date: SatMay 07 00:00:00 2022 * End Date: * Text: * USP (current) use of anticoagulants* Code: * Start Date: SatMay 07 00:00:00 EST 2022 * End Date: * Text: * Vitamin D deficiency, unspecified* Code: * Start Date: SatMay 07 00:00:00 EST 2022 * End Date: * Text: * Other disorders of plasma-protein metabolism, not elsewhere classified* Code: * Start Date: SatMay 07 00:00:00 2022 * End Date: * Text: * Abnormal level of other drugs, medicaments and biological substances in specimens from other organs, systems and tissues* Code: * Start Date: SatJun 05 00:00:00 EST 2022 * End Date: * Text: * Chronic kidney disease, stage 3a* Code: * Start Date: SatJun 14 00:00:00 EST 2022 * End Date: * Text: * Personal history of COVID-19* Code: * Start Date: SatJun 14 00:00:00 2022 * End Date: * Text: * Unsteadiness on feet* Code: * Start Date: SatJun 17 00:00:00 2022 * End Date: * Text: * Weakness* Code: * Start Date: SatJun 17 00:00:00 EST 2022 * End Date: * Text: * Personal history of (healed) traumatic fracture* Code: * Start Date: SatSep 05 00:00:00 EST 2023 * End Date: * Text: * Dizziness and giddiness* Code: * Start Date: SatMar 06 00:00:00 EDT 2023 * End Date: * Text: * Morbid (severe) obesity due to excess calories* Code: * Start Date: SatJun 14 00:00:00 2022 * End Date: * Text: * Body mass index [BMI]40.0-44.9, adult* Code: * Start Date: SatJun 14 00:00:00 2022 * End Date: * Text: * Repeated falls* Code: * Start Date: SatApr 01 00:00:00 EDT 2023 * End Date: * Text: * Type 2 diabetes mellitus with diabetic peripheral angiopathy without gangrene * Code: * Start Date: SatJun 02 00:00:00 2023 * End Date: * Text: * Muscle weakness (generalized)* Code: * Start Date: SatJun 02 00:00:00 EST 2023 * End Date: * Text: * Other fatigue* Code: * Start Date: SatJun 02 00:00:00 EST 2023 * End Date: * Text: * Need for assistance with personal care* Code: * Start Date: SatJun 02 00:00:00 EST 2023 * End Date: * Text: * Apraxia following cerebral infarction* Code: * Start Date: SatJun 02 00:00:00 EST 2023 * End Date: * Text: * [facility]_Social Services- Eloy moved to this community for [facility] care services. * Code: * Start Date: SatMar 11 00:00:00 EDT 2023 * End Date: * Text: [facility]_Social Services- Eloy moved to this community for [facility] agent care services. * [facility]_Social Services- Eloy's wishes will be followed (Advanced Directive/Code Status).* Code: * Start Date: SatMar 11 00:00:00 EDT 2023 * End Date: SatApr 23 00:00:00 EDT 2023 * Text: [facility]_Social Services- Eloy's wishes will be followed (Advanced Directive/Code Status). * [facility]_Social Services- Eloy will be involved in goal development to the best of his or her ability.* Code: * Start Date: SatMar 11 00:00:00 EDT 2023 * End Date: * Text: [facility]_Social Services- Eloy will be involved in goal development to the best of his or her ability. * [facility]_Social Services- Eloy has family/friends who are supportive.* Code: * Start Date: SatMar 11 00:00:00 EDT 2023 * End Date: * Text: LSS_Social Services- Eloy has family/friends who are supportive. * [facility]_Social Services- Eloy is having communication difficulties not related to dementia.* Code: * Start Date: SatMar 11 00:00:00 EDT 2023 * End Date: * Text: L[facility]_Social Services- Eloy is having communication difficulties not related to dementia. * LSS_Skin Integrity - (Potential Alteration of)- Dougis at risk for developing impaired skin integrity* Code: * Start Date: SatMar 11 00:00:00 EDT 2023 * End Date: * Text: LSS_Skin Integrity - (Potential Alteration of)- Dougis at risk for developing impaired skin integrity * LSS_Skin Integrity - Eloy has alteration in skinintegrity. Risk for skin tears * Code: * Start Date: SatMar 11 00:00:00 EDT 2023 * End Date: * Text: LSS_Skin Integrity - Eloy has alteration in skinintegrity. Risk for skin tears * Eloy wishes to lose weight* Code: * Start Date: SatMar 16 00:00:00 EDT 2023 * End Date: * Text: Eloy wishes to lose weight * LSS_Falls - Eloy is at risk for falls/injury asevidenced by: history of falls, cognitivestatus/behavior, vision status, continence,mobility, balance.* Code: * Start Date: SatMar 16 00:00:00 EDT 2023 * End Date: * Text: LSS_Falls - Eloy is at risk for falls/injury asevidenced by: history of falls, cognitivestatus/behavior, vision status, continence,mobility, balance. * LSS_Activities - Eloy's quality of life is better when he is able to do things that are most important to him. Eloy enjoys MT, bingo and other group activities.* Code: * Start Date: SatMar 19 00:00:00 EDT 2023 * End Date: * Text: LSS_Activities - Eloy's quality of life is better when he is able to do things that are most important to him. Eloy enjoys MT, bingo and other group activities. * LSS_ADLs - Eloy has ADL selfcare deficit related to decreased mobility and muscle weakness* Code: * Start Date: SatMar 19 00:00:00 EDT 2023 * End Date: * Text: LSS_ADLs - Eloy has ADL selfcare deficit related to decreased mobility and muscle weakness * LSS_Pain - Eloy is experiencing pain or is at highrisk for pain.* Code: * Start Date: SatMar 19 00:00:00 EDT 2023 * End Date: * Text: LSS_Pain - Eloy is experiencing pain or is at highrisk for pain. * LSS_Hyperglycemia/Hypoglycemia - Eloy is atrisk for complications associated with hyper orhypoglycemia r/t diagnosis of :__type 2 DM .* Code: * Start Date: SatApr 21 00:00:00 EDT 2023 * End Date: * Text: LSS_Hyperglycemia/Hypoglycemia - Eloy is atrisk for complications associated with hyper orhypoglycemia r/t diagnosis of :__type 2 DM . * Nursing - Skin/Tissue Integrity Status poor r/t chemotherapy medication* Code: * Start Date: SatAug 20 00:00:00 EST 2024 * End Date: * Text: Nursing - Skin/Tissue Integrity Status poor r/t chemotherapy medication * [facility]_Social Services- Eloy's wishes will be followed (Advanced Directive/Code Status).* Code: * Start Date: SatApr 23:00:00 EDT 2023 * End Date: * Text: LSS_Social Services- Eloy's wishes will be followed (Advanced Directive/Code Status). Resolved Concerns * Problem Constipation, unspecified* Code: * Start Date: SatOctober 30 00:00:00 EDT 2022 * End Date: SatMar 09 00:00:00 EDT 2023 * Problem Migraine, unspecified, not intractable, without status migrainosus* Code: * Start Date: SatOctober 30 00:00:00 EDT 2022 * End Date: SatMar 09 00:00:00 EDT 2023 * Problem Apraxia* Code: * Start Date: SatOctober 30 00:00:00 EDT 2022 * End Date: SatMar 09 00:00:00 EDT 2023 * Problem Darion's paralysis (postepileptic)* Code: * Start Date: SatOctober 30 00:00:00 EDT 2022 * End Date: SatMar 09 00:00:00 EDT 2023 * Problem Fall on same level from slipping, tripping and stumbling with subsequent striking against other object, subsequent encounter* Code: * Start Date: SatMay 07 00:00:00 EST 2022 * End Date: SatMar 09 00:00:00 EDT 2023 * Problem Drug induced constipation* Code: * Start Date: SatMay 07 00:00:00 EST 2022 * End Date: SatJun 18 00:00:00 EST 2023 * Problem Adverse effect of other opioids, subsequent encounter* Code: * Start Date: SatMay 07 00:00:00 EST 2022 * End Date: SatJun 18 00:00:00 EST 2023 * Problem Apraxia following cerebral infarction* Code: * Start Date: SatJun 17 00:00:00 EST 2022 * End Date: SatMar 09 00:00:00 EDT 2023 * Problem Displaced fracture of first metatarsal bone, right foot, subsequent encounter for fracture with routine healing* Code: * Start Date: SatSep 20 00:00:00 EDT 2023 * End Date: SatJan 19 00:00:00 EDT 2023 * Problem Unspecified fall, subsequent encounter* Code: * Start Date: SatSep 20 00:00:00 EDT 2023 * End Date: SatJan 19 00:00:00 EDT 2023 * Problem Venous insufficiency (chronic) (peripheral)* Code: * Start Date: SatApr 22 00:00:00 EDT 2023 * End Date: SatJun 18 00:00:00 EST 2023 Vital Signs Vital Sign Measurement Date Systolic Blood Pressure 118.00 mm[Hg] SatOct 09 07:13:10 EDT 2024 Diastolic Blood Pressure 63.00 mm[Hg] SatOct 09 07:13:10 EDT 2024 Pulse Oximetry 96.00 % SatOct 09 07:13 :10 EDT 2024 Heart Rate 78.00 /min SatOct 09 07:13 :10 EDT 2024 Systolic Blood Pressure 149.00 mm[Hg] Samantha Oct 08 20:29:53 EDT 2024 Diastolic Blood Pressure 75.00 mm[Hg] Samantha Oct 08 20:29:53 EDT 2024 Systolic Blood Pressure 149.00 mm[Hg] Samantha Oct 08 20:29:53 EDT 2024 Diastolic Blood Pressure 75.00 mm[Hg] Samantha Oct 08 20:29:53 EDT 2024 Systolic Blood Pressure 149.00 mm[Hg] Samantha Oct 08 20:29:53 EDT 2024 Diastolic Blood Pressure 75.00 mm[Hg] Samantha Oct 08 20:29:53 EDT 2024 Heart Rate 78.00 /min Samantha Oct 08 20:29 :53 EDT 2024 Systolic Blood Pressure 153.00 mm[Hg] Samantha Sep 10 12:47:36 EDT 2024 Diastolic Blood Pressure 97.00 mm[Hg] Samantha Sep 10 12:47:36 EDT 2024 Systolic Blood Pressure 142.00 mm[Hg] Samantha Sep 10 09:58:09 EDT 2024 Diastolic Blood Pressure 84.00 mm[Hg] Samantha Sep 10 09:58:09 EDT 2024 Systolic Blood Pressure 142.00 mm[Hg] Samantha Sep 10 09:58:09 EDT 2024 Diastolic Blood Pressure 84.00 mm[Hg] Samantha Sep 10 09:58:09 EDT 2024 Systolic Blood Pressure 142.00 mm[Hg] Samantha Sep 10 09:58:09 EDT 2024 Diastolic Blood Pressure 84.00 mm[Hg] Samantha Sep 10 09:58:09 EDT 2024 Systolic Blood Pressure 142.00 mm[Hg] Samantha Oct 08 09:58:09 EDT 2024 Diastolic Blood Pressure 84.00 mm[Hg] Samantha Oct 08 09:58:09 EDT 2024 Heart Rate 98.00 /min SatOct 08 09:58 :09 EDT 2024 Systolic Blood Pressure 141.00 mm[Hg] SatOct 07 21:56:25 EDT 2024 Diastolic Blood Pressure 75.00 mm[Hg] SatOct 07 21:56:25 EDT 2024 Systolic Blood Pressure 141.00 mm[Hg] SatOct 07 21:56:25 EDT 202 Diastolic Blood Pressure 75.00 mm[Hg] SatOct 07 21:56:25 EDT 2024 Systolic Blood Pressure 141.00 mm[Hg] SatOct 07 21:56:25 EDT 2024 Diastolic Blood Pressure 75.00 mm[Hg] SatOct 07 21:56:25 EDT 2024 Heart Rate 78.00 /min SatOct 07 21:56 :25 EDT 2024 Systolic Blood Pressure 149.00 mm[Hg] SatOct 07 13:25:51 EDT 2024 Diastolic Blood Pressure 82.00 mm[Hg] SatOct 07 13:25:51 EDT 2024 Systolic Blood Pressure 130.00 mm[Hg] SatOct 07 12:55:54 EDT 2024 Diastolic Blood Pressure 60.00 mm[Hg] SatOct 07 12:55:54 EDT 2024 Heart Rate 77.00 /min SatOct 07 12:55 :54 EDT 2024 Body temperature 97.30 [degF] SatOct 07 12:5 5:54 EDT 2024 Respiratory rate 18.00 /min SatOct 07 12:5 5:54 EDT 2024 Pulse Oximetry 95.00 % SatOct 07 12:55 :54 EDT 2024 Systolic Blood Pressure 130.00 mm[Hg] SatOct 07 10:28:08 EDT 2024 Diastolic Blood Pressure 60.00 mm[Hg] SatOct 07 10:28:08 EDT 2024 Systolic Blood Pressure 130.00 mm[Hg] SatOct 07 10:28:08 EDT 2024 Diastolic Blood Pressure 60.00 mm[Hg] SatOct 07 10:28:08 EDT 2024 Systolic Blood Pressure 130.00 mm[Hg] SatOct 07 10:28:08 EDT 2024 Diastolic Blood Pressure 60.00 mm[Hg] SatOct 07 10:28:08 EDT 2024 Systolic Blood Pressure 130.00 mm[Hg] SatOct 07 10:28:08 EDT 2024 Diastolic Blood Pressure 60.00 mm[Hg] SatOct 07 10:28:08 EDT 2024 Heart Rate 77.00 /min SatOct 07 10:28 :08 EDT 2024 Systolic Blood Pressure 130.00 mm[Hg] SatOct 07 08:16:22 EDT 2024 Diastolic Blood Pressure 60.00 mm[Hg] SatOct 07 08:16:22 EDT 2024 Heart Rate 77.00 /min SatOct 07 08:16 :22 EDT 2024 Pulse Oximetry 95.00 % SatOct 07 08:16 :22 EDT 2024 Systolic Blood Pressure 132.00 mm[Hg] SatOct 06 21:36:35 EDT 2024 Diastolic Blood Pressure 78.00 mm[Hg] SatOct 06 21:36:35 EDT 2024 Systolic Blood Pressure 132.00 mm[Hg] SatOct 06 21:36:35 EDT 2024 Diastolic Blood Pressure 78.00 mm[Hg] SatOct 06 21:36:35 EDT 2024 Systolic Blood Pressure 132.00 mm[Hg] SatOct 06 21:36:35 EDT 2024 Diastolic Blood Pressure 78.00 mm[Hg] SatOct 06 21:36:35 EDT 2024 Heart Rate 86.00 /min SatOct 06 21:36 :35 EDT 2024 Systolic Blood Pressure 144.00 mm[Hg] SatOct 06 12:55:51 EDT 2024 Diastolic Blood Pressure 76.00 mm[Hg] SatOct 06 12:55:51 EDT 2024 Systolic Blood Pressure 141.00 mm[Hg] SatOct 06 10:05:27 EDT 2024 Diastolic Blood Pressure 86.00 mm[Hg] SatOct 06 10:05:27 EDT 2024 Systolic Blood Pressure 141.00 mm[Hg] Sat 08 10:05:27 EDT 2024 Diastolic Blood Pressure 86.00 mm[Hg] Sat 08 10:05:27 EDT 2024 Systolic Blood Pressure 141.00 mm[Hg] SatOct 06 10:05:27 EDT 2024 Diastolic Blood Pressure 86.00 mm[Hg] SatOct 06 10:05:27 EDT 2024 Systolic Blood Pressure 141.00 mm[Hg] Tue Apr 08 10:05:27 EDT 2024 Diastolic Blood Pressure 86.00 mm[Hg] Sat 08 10:05:27 EDT 2024 Heart Rate 78.00 /min Sat 08 10:05 :27 EDT 2024 Systolic Blood Pressure 141.00 mm[Hg] Sat 08 07:54:24 EDT 2024 Diastolic Blood Pressure 86.00 mm[Hg] Sat 08 07:54:24 EDT 2024 Pulse Oximetry 95.00 % Sat 08 07:54 :24 EDT 2024 Heart Rate 78.00 /min Sat 08 07:54 :24 EDT 2024 Systolic Blood Pressure 135.00 mm[Hg] SatOct 05 22:47:40 EDT 2024 Diastolic Blood Pressure 68.00 mm[Hg] SatOct 05 22:47:40 EDT 2024 Systolic Blood Pressure 135.00 mm[Hg] SatOct 05 22:47:40 EDT 2024 Diastolic Blood Pressure 68.00 mm[Hg] SatOct 05 22:47:40 EDT 2024 Systolic Blood Pressure 135.00 mm[Hg] SatOct 05 22:47:40 EDT 2024 Diastolic Blood Pressure 68.00 mm[Hg] SatOct 05 22:47:40 EDT 2024 Heart Rate 83.00 /min SatOct 05 22:47 :40 EDT 2024 Systolic Blood Pressure 116.00 mm[Hg] SatOct 05 13:40:15 EDT 2024 Diastolic Blood Pressure 67.00 mm[Hg] SatOct 05 13:40:15 EDT 2024 Systolic Blood Pressure 150.00 mm[Hg] SatOct 05 11:14:06 EDT 2024 Diastolic Blood Pressure 74.00 mm[Hg] SatOct 05 11:14:06 EDT 2024 Systolic Blood Pressure 150.00 mm[Hg] SatOct 05 11:14:06 EDT 2024 Diastolic Blood Pressure 74.00 mm[Hg] SatOct 05 11:14:06 EDT 2024 Systolic Blood Pressure 150.00 mm[Hg] SatOct 05 11:14:06 EDT 2024 Diastolic Blood Pressure 74.00 mm[Hg] SatOct 05 11:14:06 EDT 2024 Systolic Blood Pressure 150.00 mm[Hg] SatOct 05 11:14:06 EDT 2024 Diastolic Blood Pressure 74.00 mm[Hg] SatOct 05 11:14:06 EDT 2024 Heart Rate 77.00 /min SatOct 05 11:14 :06 EDT 2024 Systolic Blood Pressure 144.00 mm[Hg] SatOct 05 07:48:55 EDT 2024 Diastolic Blood Pressure 103.00 mm[Hg] SatOct 05 07:48:55 EDT 2024 Pulse Oximetry 91.00 % SatOct 05 07:48 :55 EDT 2024 Heart Rate 69.00 /min SatOct 05 07:48 :55 EDT 2024 Systolic Blood Pressure 163.00 mm[Hg] Sun Oct 04 22:37:50 EDT 2024 Diastolic Blood Pressure 83.00 mm[Hg] Sun Oct 04 22:37:50 EDT 2024 Systolic Blood Pressure 163.00 mm[Hg] Sun Oct 04 22:37:50 EDT 2024 Diastolic Blood Pressure 83.00 mm[Hg] Sun Oct 04 22:37:50 EDT 2024 Systolic Blood Pressure 163.00 mm[Hg] Sun Oct 04 22:37:50 EDT 2024 Diastolic Blood Pressure 83.00 mm[Hg] Sun Oct 04 22:37:50 EDT 2024 Heart Rate 78.00 /min Sun Oct 04 22:37 :50 EDT 2024 Systolic Blood Pressure 127.00 mm[Hg] Sun Oct 04 13:15:49 EDT 2024 Diastolic Blood Pressure 75.00 mm[Hg] Sun Oct 04 13:15:49 EDT 2024 Systolic Blood Pressure 160.00 mm[Hg] Sun Oct 04 11:13:23 EDT 2024 Diastolic Blood Pressure 85.00 mm[Hg] Sun Oct 04 11:13:23 EDT 2024 Systolic Blood Pressure 160.00 mm[Hg] Sun Oct 04 11:13:23 EDT 2024 Diastolic Blood Pressure 85.00 mm[Hg] Sun Oct 04 11:13:23 EDT 2024 Systolic Blood Pressure 160.00 mm[Hg] Sun Oct 04 11:13:23 EDT 2024 Diastolic Blood Pressure 85.00 mm[Hg] Sun Oct 04 11:13:23 EDT 2024 Systolic Blood Pressure 160.00 mm[Hg] Sun Oct 04 11:13:23 EDT 2024 Diastolic Blood Pressure 85.00 mm[Hg] Sun Oct 04 11:13:23 EDT 2024 Heart Rate 66.00 /min Sun Oct 04 11:13 :23 EDT 2024 Systolic Blood Pressure 145.00 mm[Hg] Sun Apr 06 01:10:24 EDT 2024 Diastolic Blood Pressure 76.00 mm[Hg] Sun Apr 06 01:10:24 EDT 2024 Systolic Blood Pressure 145.00 mm[Hg] Sun Apr 06 01:10:24 EDT 2024 Diastolic Blood Pressure 76.00 mm[Hg] Sun Apr 06 01:10:24 EDT 2024 Systolic Blood Pressure 145.00 mm[Hg] Sun Apr 06 01:10:24 EDT 2024 Diastolic Blood Pressure 76.00 mm[Hg] Sun Apr 06 01:10:24 EDT 2024 Heart Rate 78.00 /min Sun Apr 06 01:10 :24 EDT 2024 Systolic Blood Pressure 134.00 mm[Hg] Sat Apr 05 12:53:30 EDT 2024 Diastolic Blood Pressure 65.00 mm[Hg] Sat Apr 05 12:53:30 EDT 2024 Systolic Blood Pressure 146.00 mm[Hg] Sat Apr 05 10:12:55 EDT 2024 Diastolic Blood Pressure 76.00 mm[Hg] Sat Apr 05 10:12:55 EDT 2024 Systolic Blood Pressure 146.00 mm[Hg] Sat Apr 05 10:12:55 EDT 5 Diastolic Blood Pressure 76.00 mm[Hg] Sat Apr 05 10:12:55 EDT 2024 Systolic Blood Pressure 146.00 mm[Hg] Sat Apr 05 10:12:55 EDT 2024 Diastolic Blood Pressure 76.00 mm[Hg] Sat Apr 05 10:12:55 EDT 2024 Systolic Blood Pressure 146.00 mm[Hg] Sat Apr 05 10:12:55 EDT 2024 Diastolic Blood Pressure 76.00 mm[Hg] Sat Apr 05 10:12:55 EDT 2024 Heart Rate 73.00 /min Sat Apr 05 10:12 :55 EDT 5 Systolic Blood Pressure 144.00 mm[Hg] Fri Oct 02 23:03:37 EDT 2024 Diastolic Blood Pressure 81.00 mm[Hg] SatOct 02 23:03:37 EDT 2024 Systolic Blood Pressure 144.00 mm[Hg] SatOct 02 23:03:37 EDT 2024 Diastolic Blood Pressure 81.00 mm[Hg] SatOct 02 23:03:37 EDT 2024 Systolic Blood Pressure 144.00 mm[Hg] SatOct 02 23:03:37 EDT 2024 Diastolic Blood Pressure 81.00 mm[Hg] Sat 04 23:03:37 EDT 2024 Heart Rate 66.00 /min Sat 04 23:03 :37 EDT 2024 Systolic Blood Pressure 121.00 mm[Hg] Sat 04 12:47:10 EDT 2024 Diastolic Blood Pressure 64.00 mm[Hg] Sat 04 12:47:10 EDT 2024 Systolic Blood Pressure 155.00 mm[Hg] Sat 04 10:14:22 EDT 2024 Diastolic Blood Pressure 71.00 mm[Hg] Sat 04 10:14:22 EDT 2024 Systolic Blood Pressure 155.00 mm[Hg] Sat 04 10:14:22 EDT 2024 Diastolic Blood Pressure 71.00 mm[Hg] Sat 04 10:14:22 EDT 2024 Systolic Blood Pressure 155.00 mm[Hg] Sat 04 10:14:22 EDT 2024 Diastolic Blood Pressure 71.00 mm[Hg] Sat 04 10:14:22 EDT 2024 Systolic Blood Pressure 155.00 mm[Hg] Sat 04 10:14:22 EDT 2024 Diastolic Blood Pressure 71.00 mm[Hg] Sat 04 10:14:22 EDT 2024 Heart Rate 89.00 /min SatOct 02 10:14 :22 EDT 2024 Systolic Blood Pressure 125.00 mm[Hg] Samantha Oct 01 21:39:30 EDT 2024 Diastolic Blood Pressure 77.00 mm[Hg] Samantha Oct 01 21:39:30 EDT 2024 Systolic Blood Pressure 125.00 mm[Hg] Samantha Oct 01 21:39:30 EDT 2024 Diastolic Blood Pressure 77.00 mm[Hg] Samantha Oct 01 21:39:30 EDT 2024 Systolic Blood Pressure 125.00 mm[Hg] Samatnha Oct 01 21:39:30 EDT 2024 Diastolic Blood Pressure 77.00 mm[Hg] Samantha Oct 01 21:39:30 EDT 2024 Heart Rate 86.00 /min Samantha Oct 01 21:39 :30 EDT 2024 Systolic Blood Pressure 117.00 mm[Hg] Samantha Oct 01 13:04:49 EDT 2024 Diastolic Blood Pressure 69.00 mm[Hg] Samantha Oct 01 13:04:49 EDT 2024 Systolic Blood Pressure 109.00 mm[Hg] Samantha Oct 01 11:32:48 EDT 2024 Diastolic Blood Pressure 78.00 mm[Hg] Samantha Oct 01 11:32:48 EDT 2024 Systolic Blood Pressure 109.00 mm[Hg] Samantha Oct 01 11:32:48 EDT 2024 Diastolic Blood Pressure 78.00 mm[Hg] Samantha Oct 01 11:32:48 EDT 2024 Systolic Blood Pressure 109.00 mm[Hg] Samantha Oct 01 11:32:48 EDT 2024 Diastolic Blood Pressure 78.00 mm[Hg] Samantha Oct 01 11:32:48 EDT 2024 Systolic Blood Pressure 109.00 mm[Hg] Samantha Oct 01 11:32:48 EDT 2024 Diastolic Blood Pressure 78.00 mm[Hg] Samantha Oct 01 11:32:48 EDT 2024 Heart Rate 98.00 /min Samantha Oct 01 11:32 :48 EDT 2024 Systolic Blood Pressure 109.00 mm[Hg] Samantha Oct 01 08:19:10 EDT 2024 Diastolic Blood Pressure 78.00 mm[Hg] Samantha Oct 01 08:19:10 EDT 2024 Pulse Oximetry 92.00 % Samantha Oct 01 08:19 :10 EDT 2024 Heart Rate 98.00 /min Samantha Oct 01 08:19 :10 EDT 2024 Systolic Blood Pressure 141.00 mm[Hg] SatSep 30 21:31:05 EDT 2024 Diastolic Blood Pressure 72.00 mm[Hg] SatSep 30 21:31:05 EDT 2024 Respiratory rate 17.00 /min SatSep 30 21:3 1:05 EDT 2024 Body temperature 98.20 [degF] SatSep 30 21:3 1:05 EDT 2024 Pulse Oximetry 95.00 % SatSep 30 21:31 :05 EDT 2024 Heart Rate 95.00 /min SatSep 30 21:31 :05 EDT 2024 Systolic Blood Pressure 142.00 mm[Hg] SatSep 30 21:15:24 EDT 2024 Diastolic Blood Pressure 86.00 mm[Hg] SatSep 30 21:15:24 EDT 2024 Systolic Blood Pressure 142.00 mm[Hg] SatSep 30 21:15:24 EDT 2024 Diastolic Blood Pressure 86.00 mm[Hg] SatSep 30 21:15:24 EDT 2024 Systolic Blood Pressure 142.00 mm[Hg] SatSep 30 21:15:24 EDT 2024 Diastolic Blood Pressure 86.00 mm[Hg] SatSep 30 21:15:24 EDT 2024 Heart Rate 75.00 /min SatSep 30 21:15 :24 EDT 2024 Systolic Blood Pressure 148.00 mm[Hg] SatSep 30 15:49:39 EDT 2024 Diastolic Blood Pressure 79.00 mm[Hg] SatSep 30 15:49:39 EDT 2024 Systolic Blood Pressure 135.00 mm[Hg] SatSep 30 14:18:37 EDT 2024 Diastolic Blood Pressure 71.00 mm[Hg] SatSep 30 14:18:37 EDT 2024 Heart Rate 79.00 /min SatSep 30 14:18 :37 EDT 2024 Pulse Oximetry 95.00 % SatSep 30 14:18 :37 EDT 2024 Respiratory rate 20.00 /min SatSep 30 14:1 8:37 EDT 2024 Body temperature 96.80 [degF] SatSep 30 14:1 8:37 EDT 2024 Systolic Blood Pressure 135.00 mm[Hg] SatSep 30 10:38:53 EDT 2024 Diastolic Blood Pressure 71.00 mm[Hg] SatSep 30 10:38:53 EDT 2024 Systolic Blood Pressure 135.00 mm[Hg] SatSep 30 10:38:53 EDT 2024 Diastolic Blood Pressure 71.00 mm[Hg] SatSep 30 10:38:53 EDT 2024 Systolic Blood Pressure 135.00 mm[Hg] SatSep 30 10:38:53 EDT 2024 Diastolic Blood Pressure 71.00 mm[Hg] SatSep 30 10:38:53 EDT 2024 Systolic Blood Pressure 135.00 mm[Hg] SatSep 30 10:38:53 EDT 2024 Diastolic Blood Pressure 71.00 mm[Hg] SatSep 30 10:38:53 EDT 2024 Heart Rate 79.00 /min SatSep 30 10:38 :53 EDT 2024 Systolic Blood Pressure 135.00 mm[Hg] SatSep 30 08:55:14 EDT 2024 Diastolic Blood Pressure 71.00 mm[Hg] SatSep 30 08:55:14 EDT 2024 Heart Rate 79.00 /min SatSep 30 08:55 :14 EDT 2024 Pulse Oximetry 95.00 % SatSep 30 08:55 :14 EDT 2024 Respiratory rate 20.00 /min SatSep 30 08:5 5:14 EDT 2024 Systolic Blood Pressure 146.00 mm[Hg] SatSep 29 23:10:38 EDT 2024 Diastolic Blood Pressure 62.00 mm[Hg] SatSep 29 23:10:38 EDT 2024 Systolic Blood Pressure 146.00 mm[Hg] SatSep 29 23:10:38 EDT 2024 Diastolic Blood Pressure 62.00 mm[Hg] SatSep 29 23:10:38 EDT 2024 Systolic Blood Pressure 146.00 mm[Hg] SatSep 29 23:10:38 EDT 2024 Diastolic Blood Pressure 62.00 mm[Hg] SatSep 29 23:10:38 EDT 2024 Heart Rate 95.00 /min SatSep 29 23:10 :38 EDT 2024 Systolic Blood Pressure 135.00 mm[Hg] SatSep 29 13:14:02 EDT 2024 Diastolic Blood Pressure 70.00 mm[Hg] SatSep 29 13:14:02 EDT 2024 Systolic Blood Pressure 135.00 mm[Hg] SatSep 29 10:28:50 EDT 2024 Diastolic Blood Pressure 75.00 mm[Hg] SatSep 29 10:28:50 EDT 2024 Systolic Blood Pressure 135.00 mm[Hg] SatSep 29 10:28:50 EDT 2024 Diastolic Blood Pressure 75.00 mm[Hg] SatSep 29 10:28:50 EDT 2024 Systolic Blood Pressure 135.00 mm[Hg] SatSep 29 10:28:50 EDT 2024 Diastolic Blood Pressure 75.00 mm[Hg] SatSep 29 10:28:50 EDT 2024 Systolic Blood Pressure 135.00 mm[Hg] SatSep 29 10:28:50 EDT 2024 Diastolic Blood Pressure 75.00 mm[Hg] SatSep 29 10:28:50 EDT 2024 Heart Rate 70.00 /min SatSep 29 10:28 :50 EDT 2024 Systolic Blood Pressure 141.00 mm[Hg] SatSep 28 21:52:14 EDT 2024 Diastolic Blood Pressure 72.00 mm[Hg] SatSep 28 21:52:14 EDT 2024 Systolic Blood Pressure 141.00 mm[Hg] SatSep 28 21:52:14 EDT 2024 Diastolic Blood Pressure 72.00 mm[Hg] SatSep 28 21:52:14 EDT 2024 Systolic Blood Pressure 141.00 mm[Hg] SatSep 28 21:52:14 EDT 2024 Diastolic Blood Pressure 72.00 mm[Hg] SatSep 28 21:52:14 EDT 2024 Heart Rate 75.00 /min SatSep 28 21:52 :14 EDT 2024 Systolic Blood Pressure 127.00 mm[Hg] SatSep 28 12:40:51 EDT 2024 Diastolic Blood Pressure 86.00 mm[Hg] SatSep 28 12:40:51 EDT 2024 Systolic Blood Pressure 145.00 mm[Hg] SatSep 28 10:12:36 EDT 2024 Diastolic Blood Pressure 73.00 mm[Hg] SatSep 28 10:12:36 EDT 2024 Systolic Blood Pressure 145.00 mm[Hg] SatSep 28 10:12:36 EDT 2024 Diastolic Blood Pressure 73.00 mm[Hg] SatSep 28 10:12:36 EDT 2024 Systolic Blood Pressure 145.00 mm[Hg] SatSep 28 10:12:36 EDT 2024 Diastolic Blood Pressure 73.00 mm[Hg] SatSep 28 10:12:36 EDT 2024 Systolic Blood Pressure 145.00 mm[Hg] SatSep 28 10:12:36 EDT 2024 Diastolic Blood Pressure 73.00 mm[Hg] SatSep 28 10:12:36 EDT 2024 Heart Rate 73.00 /min SatSep 28 10:12 :36 EDT 2024 Systolic Blood Pressure 145.00 mm[Hg] SatSep 28 08:00:59 EDT 2024 Diastolic Blood Pressure 73.00 mm[Hg] SatSep 28 08:00:59 EDT 2024 Heart Rate 73.00 /min SatSep 28 08:00 :59 EDT 2024 Pulse Oximetry 96.00 % SatSep 28 08:00 :59 EDT 2024 Systolic Blood Pressure 127.00 mm[Hg] SatSep 27 21:25:48 EDT 2024 Diastolic Blood Pressure 69.00 mm[Hg] SatSep 27 21:25:48 EDT 2024 Systolic Blood Pressure 127.00 mm[Hg] SatSep 27 21:25:48 EDT 2024 Diastolic Blood Pressure 69.00 mm[Hg] SatSep 27 21:25:48 EDT 2024 Systolic Blood Pressure 127.00 mm[Hg] Sun Mar 30 21:25:48 EDT 2024 Diastolic Blood Pressure 69.00 mm[Hg] Sun Mar 30 21:25:48 EDT 2024 Heart Rate 67.00 /min Sun Mar 30 21:25 :48 EDT 2024 Body weight 274.80 [lb_av] Sun Mar 30 16:33 :41 EDT 2024 Systolic Blood Pressure 113.00 mm[Hg] Sun Mar 30 14:00:56 EDT 2024 Diastolic Blood Pressure 57.00 mm[Hg] Sun Mar 30 14:00:56 EDT 2024 Systolic Blood Pressure 128.00 mm[Hg] Sun Mar 30 11:27:54 EDT 2024 Diastolic Blood Pressure 69.00 mm[Hg] Sun Mar 30 11:27:54 EDT 2024 Systolic Blood Pressure 128.00 mm[Hg] Sun Mar 30 11:27:54 EDT 2024 Diastolic Blood Pressure 69.00 mm[Hg] Sun Mar 30 11:27:54 EDT 2024 Systolic Blood Pressure 128.00 mm[Hg] Sun Mar 30 11:27:54 EDT 2024 Diastolic Blood Pressure 69.00 mm[Hg] Sun Mar 30 11:27:54 EDT 2024 Systolic Blood Pressure 128.00 mm[Hg] Sun Mar 30 11:27:54 EDT 2024 Diastolic Blood Pressure 69.00 mm[Hg] Sun Mar 30 11:27:54 EDT 2024 Heart Rate 79.00 /min Sun Mar 30 11:27 :54 EDT 2024 Systolic Blood Pressure 128.00 mm[Hg] Sun Mar 30 08:47:48 EDT 2024 Diastolic Blood Pressure 69.00 mm[Hg] Sun Mar 30 08:47:48 EDT 2024 Heart Rate 79.00 /min Sun Mar 30 08:47 :48 EDT 2024 Pulse Oximetry 90.00 % Sun Mar 30 08:47 :48 EDT 2024 Systolic Blood Pressure 131.00 mm[Hg] Sat Mar 29 22:34:50 EDT 2024 Diastolic Blood Pressure 74.00 mm[Hg] Sat Mar 29 22:34:50 EDT 2024 Systolic Blood Pressure 131.00 mm[Hg] Sat Mar 29 22:34:50 EDT 2024 Diastolic Blood Pressure 74.00 mm[Hg] Sat Mar 29 22:34:50 EDT 2024 Systolic Blood Pressure 131.00 mm[Hg] Sat Mar 29 22:34:50 EDT 2024 Diastolic Blood Pressure 74.00 mm[Hg] Sat Mar 29 22:34:50 EDT 2024 Heart Rate 69.00 /min Sat Mar 29 22:34 :50 EDT 2024 Systolic Blood Pressure 120.00 mm[Hg] Sat Mar 29 12:49:33 EDT 2024 Diastolic Blood Pressure 62.00 mm[Hg] Sat Mar 29 12:49:33 EDT 2024 Systolic Blood Pressure 125.00 mm[Hg] Sat Mar 29 09:14:27 EDT 2024 Diastolic Blood Pressure 72.00 mm[Hg] Sat Mar 29 09:14:27 EDT 2024 Systolic Blood Pressure 125.00 mm[Hg] Sat Mar 29 09:14:27 EDT 2024 Diastolic Blood Pressure 72.00 mm[Hg] Sat Mar 29 09:14:27 EDT 2024 Systolic Blood Pressure 125.00 mm[Hg] Sat Mar 29 09:14:27 EDT 2024 Diastolic Blood Pressure 72.00 mm[Hg] Sat Mar 29 09:14:27 EDT 2024 Systolic Blood Pressure 125.00 mm[Hg] Sat Mar 29 09:14:27 EDT 2024 Diastolic Blood Pressure 72.00 mm[Hg] Sat Mar 29 09:14:27 EDT 2024 Heart Rate 78.00 /min Sat Mar 29 09:14 :27 EDT 2024 Systolic Blood Pressure 125.00 mm[Hg] Sat Mar 29 08:02:20 EDT 2024 Diastolic Blood Pressure 72.00 mm[Hg] Sat Mar 29 08:02:20 EDT 2024 Heart Rate 78.00 /min Sat Aug 29 08:02 :20 EDT 2024 Systolic Blood Pressure 152.00 mm[Hg] SatSep 25 21:33:15 EDT 2024 Diastolic Blood Pressure 79.00 mm[Hg] SatSep 25 21:33:15 EDT 2024 Systolic Blood Pressure 152.00 mm[Hg] SatSep 25 21:33:15 EDT 2024 Diastolic Blood Pressure 79.00 mm[Hg] SatSep 25 21:33:15 EDT 2024 Systolic Blood Pressure 152.00 mm[Hg] SatSep 25 21:33:15 EDT 2024 Diastolic Blood Pressure 79.00 mm[Hg] SatSep 25 21:33:15 EDT 2024 Heart Rate 66.00 /min SatSep 25 21:33 :15 EDT 2024 Systolic Blood Pressure 123.00 mm[Hg] SatSep 25 12:34:17 EDT 2024 Diastolic Blood Pressure 72.00 mm[Hg] SatSep 25 12:34:17 EDT 2024 Systolic Blood Pressure 151.00 mm[Hg] SatSep 25 09:52:59 EDT 2024 Diastolic Blood Pressure 71.00 mm[Hg] SatSep 25 09:52:59 EDT 2024 Systolic Blood Pressure 151.00 mm[Hg] SatSep 25 09:52:59 EDT 2024 Diastolic Blood Pressure 71.00 mm[Hg] SatSep 25 09:52:59 EDT 2024 Systolic Blood Pressure 151.00 mm[Hg] SatSep 25 09:52:59 EDT 2024 Diastolic Blood Pressure 71.00 mm[Hg] SatSep 25 09:52:59 EDT 2024 Systolic Blood Pressure 151.00 mm[Hg] SatSep 25 09:52:59 EDT 2024 Diastolic Blood Pressure 71.00 mm[Hg] SatSep 25 09:52:59 EDT 2024 Heart Rate 91.00 /min SatSep 25 09:52 :59 EDT 2024 Systolic Blood Pressure 151.00 mm[Hg] SatSep 25 08:16:20 EDT 2024 Diastolic Blood Pressure 71.00 mm[Hg] SatSep 25 08:16:20 EDT 2024 Heart Rate 91.00 /min SatSep 25 08:16 :20 EDT 2024 Pulse Oximetry 94.00 % SatSep 25 08:16 :20 EDT 2024 Systolic Blood Pressure 145.00 mm[Hg] SatSep 25 04:09:00 EDT 2024 Diastolic Blood Pressure 76.00 mm[Hg] SatSep 25 04:09:00 EDT 2024 Heart Rate 75.00 /min SatSep 25 04:09 :00 EDT 2024 Respiratory rate 18.00 /min SatSep 25 04:0 9:00 EDT 2024 Pulse Oximetry 98.00 % SatSep 25 04:09 :00 EDT 2024 Body temperature 98.50 [degF] SatSep 25 04:0 9:00 EDT 2024 Systolic Blood Pressure 145.00 mm[Hg] Samantha Sep 24 21:15:16 EDT 2024 Diastolic Blood Pressure 76.00 mm[Hg] Samantha Sep 24 21:15:16 EDT 2024 Systolic Blood Pressure 145.00 mm[Hg] Samantha Mar 27 21:15:16 EDT 2024 Diastolic Blood Pressure 76.00 mm[Hg] Sat 27 21:15:16 EDT 2024 Systolic Blood Pressure 145.00 mm[Hg] SatSep 24 21:15:16 EDT 2024 Diastolic Blood Pressure 76.00 mm[Hg] SatSep 24 21:15:16 EDT 2024 Heart Rate 75.00 /min SatSep 24 21:15 :16 EDT 2024 Systolic Blood Pressure 154.00 mm[Hg] SatSep 24 17:23:54 EDT 2024 Diastolic Blood Pressure 84.00 mm[Hg] SatSep 24 17:23:54 EDT 2024 Systolic Blood Pressure 140.00 mm[Hg] SatSep 24 10:10:22 EDT 2024 Diastolic Blood Pressure 77.00 mm[Hg] SatSep 24 10:10:22 EDT 2024 Systolic Blood Pressure 140.00 mm[Hg] SatSep 24 10:10:22 EDT 2024 Diastolic Blood Pressure 77.00 mm[Hg] SatSep 24 10:10:22 EDT 2024 Systolic Blood Pressure 140.00 mm[Hg] SatSep 24 10:10:22 EDT 2024 Diastolic Blood Pressure 77.00 mm[Hg] SatSep 24 10:10:22 EDT 2024 Systolic Blood Pressure 140.00 mm[Hg] SatSep 24 10:10:22 EDT 2024 Diastolic Blood Pressure 77.00 mm[Hg] SatSep 24 10:10:22 EDT 2024 Heart Rate 75.00 /min SatSep 24 10:10 :22 EDT 2024 Systolic Blood Pressure 134.00 mm[Hg] SatSep 23 21:18:18 EDT 2024 Diastolic Blood Pressure 71.00 mm[Hg] SatSep 23 21:18:18 EDT 2024 Systolic Blood Pressure 134.00 mm[Hg] SatSep 23 21:18:18 EDT 2024 Diastolic Blood Pressure 71.00 mm[Hg] SatSep 23 21:18:18 EDT 2024 Systolic Blood Pressure 134.00 mm[Hg] SatSep 23 21:18:18 EDT 2024 Diastolic Blood Pressure 71.00 mm[Hg] SatSep 23 21:18:18 EDT 2024 Heart Rate 78.00 /min SatSep 23 21:18 :18 EDT 2024 Systolic Blood Pressure 128.00 mm[Hg] SatSep 23 17:05:53 EDT 2024 Diastolic Blood Pressure 74.00 mm[Hg] SatSep 23 17:05:53 EDT 2024 Heart Rate 84.00 /min SatSep 23 17:05 :53 EDT 2024 Body temperature 98.00 [degF] SatSep 23 17:0 5:53 EDT 2024 Respiratory rate 20.00 /min SatSep 23 17:0 5:53 EDT 2024 Pulse Oximetry 97.00 % SatSep 23 17:05 :53 EDT 2024 Systolic Blood Pressure 128.00 mm[Hg] SatSep 23 12:34:17 EDT 2024 Diastolic Blood Pressure 74.00 mm[Hg] SatSep 23 12:34:17 EDT 2024 Systolic Blood Pressure 143.00 mm[Hg] SatSep 23 09:59:28 EDT 2024 Diastolic Blood Pressure 79.00 mm[Hg] SatSep 23 09:59:28 EDT 2024 Systolic Blood Pressure 143.00 mm[Hg] SatSep 23 09:59:28 EDT 2024 Diastolic Blood Pressure 79.00 mm[Hg] SatSep 23 09:59:28 EDT 2024 Systolic Blood Pressure 143.00 mm[Hg] SatSep 23 09:59:28 EDT 2024 Diastolic Blood Pressure 79.00 mm[Hg] SatSep 23 09:59:28 EDT 2024 Systolic Blood Pressure 143.00 mm[Hg] SatSep 23 09:59:28 EDT 2024 Diastolic Blood Pressure 79.00 mm[Hg] SatSep 23 09:59:28 EDT 2024 Heart Rate 82.00 /min SatSep 23 09:59 :28 EDT 2024 Systolic Blood Pressure 143.00 mm[Hg] SatSep 23 08:40:23 EDT 2024 Diastolic Blood Pressure 79.00 mm[Hg] SatSep 23 08:40:23 EDT 2024 Heart Rate 82.00 /min SatSep 23 08:40 :23 EDT 2024 Systolic Blood Pressure 115.00 mm[Hg] SatSep 23 08:37:46 EDT 2024 Diastolic Blood Pressure 73.00 mm[Hg] SatSep 23 08:37:46 EDT 2024 Respiratory rate 16.00 /min SatSep 23 08:3 7:46 EDT 2024 Body temperature 98.20 [degF] SatSep 23 08:3 7:46 EDT 2024 Heart Rate 82.00 /min SatSep 23 08:37 :46 EDT 2024 Pulse Oximetry 97.00 % SatSep 23 08:37 :46 EDT 2024 Systolic Blood Pressure 118.00 mm[Hg] SatSep 22 21:57:32 EDT 2024 Diastolic Blood Pressure 74.00 mm[Hg] SatSep 22 21:57:32 EDT 2024 Systolic Blood Pressure 118.00 mm[Hg] SatSep 22 21:57:32 EDT 2024 Diastolic Blood Pressure 74.00 mm[Hg] SatSep 22 21:57:32 EDT 2024 Systolic Blood Pressure 118.00 mm[Hg] SatSep 22 21:57:32 EDT 2024 Diastolic Blood Pressure 74.00 mm[Hg] SatSep 22 21:57:32 EDT 2024 Heart Rate 85.00 /min SatSep 22 21:57 :32 EDT 2024 Body weight 280.00 [lb_av] SatSep 22 14:49 :00 EDT 2024 Systolic Blood Pressure 106.00 mm[Hg] SatSep 22 14:02:43 EDT 2024 Diastolic Blood Pressure 74.00 mm[Hg] SatSep 22 14:02:43 EDT 2024 Systolic Blood Pressure 106.00 mm[Hg] SatSep 22 10:50:12 EDT 2024 Diastolic Blood Pressure 74.00 mm[Hg] SatSep 22 10:50:12 EDT 2024 Systolic Blood Pressure 106.00 mm[Hg] SatSep 22 10:50:12 EDT 2024 Diastolic Blood Pressure 74.00 mm[Hg] SatSep 22 10:50:12 EDT 2024 Systolic Blood Pressure 106.00 mm[Hg] SatSep 22 10:50:12 EDT 2024 Diastolic Blood Pressure 74.00 mm[Hg] SatSep 22 10:50:12 EDT 2024 Systolic Blood Pressure 106.00 mm[Hg] SatSep 22 10:50:12 EDT 2024 Diastolic Blood Pressure 74.00 mm[Hg] SatSep 22 10:50:12 EDT 2024 Heart Rate 66.00 /min SatSep 22 10:50 :12 EDT 2024 Systolic Blood Pressure 106.00 mm[Hg] SatSep 22 07:40:33 EDT 2024 Diastolic Blood Pressure 74.00 mm[Hg] SatSep 22 07:40:33 EDT 2024 Pulse Oximetry 96.00 % SatSep 22 07:40 :33 EDT 2024 Heart Rate 66.00 /min SatSep 22 07:40 :33 EDT 2024 Systolic Blood Pressure 157.00 mm[Hg] SatSep 21 22:11:44 EDT 2024 Diastolic Blood Pressure 88.00 mm[Hg] SatSep 21 22:11:44 EDT 2024 Systolic Blood Pressure 157.00 mm[Hg] SatSep 21 22:11:44 EDT 2024 Diastolic Blood Pressure 88.00 mm[Hg] SatSep 21 22:11:44 EDT 2024 Systolic Blood Pressure 157.00 mm[Hg] SatSep 21 22:11:44 EDT 2024 Diastolic Blood Pressure 88.00 mm[Hg] SatSep 21 22:11:44 EDT 2024 Heart Rate 85.00 /min SatSep 21 22:11 :44 EDT 2024 Systolic Blood Pressure 136.00 mm[Hg] SatSep 21 13:57:32 EDT 2024 Diastolic Blood Pressure 67.00 mm[Hg] SatSep 21 13:57:32 EDT 2024 Systolic Blood Pressure 158.00 mm[Hg] SatSep 21 10:48:53 EDT 2024 Diastolic Blood Pressure 79.00 mm[Hg] SatSep 21 10:48:53 EDT 2024 Systolic Blood Pressure 158.00 mm[Hg] SatSep 21 10:48:53 EDT 2024 Diastolic Blood Pressure 79.00 mm[Hg] SatSep 21 10:48:53 EDT 2024 Systolic Blood Pressure 158.00 mm[Hg] SatSep 21 10:48:53 EDT 2024 Diastolic Blood Pressure 79.00 mm[Hg] SatSep 21 10:48:53 EDT 2024 Systolic Blood Pressure 158.00 mm[Hg] SatSep 21 10:48:53 EDT 2024 Diastolic Blood Pressure 79.00 mm[Hg] SatSep 21 10:48:53 EDT 2024 Heart Rate 73.00 /min SatSep 21 10:48 :53 EDT 2024 Systolic Blood Pressure 147.00 mm[Hg] SatSep 20 23:29:28 EDT 2024 Diastolic Blood Pressure 86.00 mm[Hg] SatSep 20 23:29:28 EDT 2024 Systolic Blood Pressure 147.00 mm[Hg] Sun Mar 23 23:29:28 EDT 2024 Diastolic Blood Pressure 86.00 mm[Hg] Sun Mar 23 23:29:28 EDT 2024 Systolic Blood Pressure 147.00 mm[Hg] Sun Mar 23 23:29:28 EDT 2024 Diastolic Blood Pressure 86.00 mm[Hg] Sun Mar 23 23:29:28 EDT 2024 Heart Rate 66.00 /min Sun Mar 23 23:29 :28 EDT 2024 Systolic Blood Pressure 158.00 mm[Hg] Sun Mar 23 16:45:35 EDT 2024 Diastolic Blood Pressure 88.00 mm[Hg] Sun Mar 23 16:45:35 EDT 2024 Systolic Blood Pressure 131.00 mm[Hg] Sun Mar 23 09:51:04 EDT 2024 Diastolic Blood Pressure 69.00 mm[Hg] Sun Mar 23 09:51:04 EDT 2024 Systolic Blood Pressure 131.00 mm[Hg] Sun Mar 23 09:51:04 EDT 2024 Diastolic Blood Pressure 69.00 mm[Hg] Sun Mar 09:51:04 EDT 2024 Systolic Blood Pressure 131.00 mm[Hg] Sun Mar 09:51:04 EDT 2024 Diastolic Blood Pressure 69.00 mm[Hg] Sun Mar 23 09:51:04 EDT 2024 Systolic Blood Pressure 131.00 mm[Hg] Sun Mar 23 09:51:04 EDT 2024 Diastolic Blood Pressure 69.00 mm[Hg] Sun Mar 23 09:51:04 EDT 2024 Heart Rate 74.00 /min Sun Mar 23 09:51 :04 EDT 2024 Systolic Blood Pressure 150.00 mm[Hg] Sat Mar 22 23:58:32 EDT 2024 Diastolic Blood Pressure 73.00 mm[Hg] Sat Mar 22 23:58:32 EDT 2024 Systolic Blood Pressure 150.00 mm[Hg] Sat Mar 22 23:58:32 EDT 2024 Diastolic Blood Pressure 73.00 mm[Hg] Sat Mar 22 23:58:32 EDT 2024 Systolic Blood Pressure 150.00 mm[Hg] Sat Mar 22 23:58:32 EDT 2024 Diastolic Blood Pressure 73.00 mm[Hg] Sat Mar 22 23:58:32 EDT 2024 Heart Rate 79.00 /min Sat Mar 22 23:58 :32 EDT 2024 Systolic Blood Pressure 144.00 mm[Hg] Sat Mar 22 14:34:30 EDT 2024 Diastolic Blood Pressure 78.00 mm[Hg] Sat Mar 22 14:34:30 EDT 2024 Systolic Blood Pressure 162.00 mm[Hg] Sat Mar 22 10:55:46 EDT 2024 Diastolic Blood Pressure 90.00 mm[Hg] Sat Mar 22 10:55:46 EDT 2024 Systolic Blood Pressure 162.00 mm[Hg] Sat Mar 22 10:55:46 EDT 2024 Diastolic Blood Pressure 90.00 mm[Hg] Sat Mar 22 10:55:46 EDT 2024 Systolic Blood Pressure 162.00 mm[Hg] Sat Mar 22 10:55:46 EDT 2024 Diastolic Blood Pressure 90.00 mm[Hg] Sat Mar 22 10:55:46 EDT 2024 Systolic Blood Pressure 162.00 mm[Hg] [facility] Mar 22 10:55:46 EDT 2024 Diastolic Blood Pressure 90.00 mm[Hg] [facility] Mar 22 10:55:46 EDT 2024 Heart Rate 84.00 /min [facility] Mar 22 10:55 :46 EDT 2024 Systolic Blood Pressure 131.00 mm[Hg] Sat 21 22:20:57 EDT 2024 Diastolic Blood Pressure 87.00 mm[Hg] Sat 21 22:20:57 EDT 2024 Systolic Blood Pressure 131.00 mm[Hg] Sat 21 22:20:57 EDT 2024 Diastolic Blood Pressure 87.00 mm[Hg] Sat 21 22:20:57 EDT 2024 Systolic Blood Pressure 131.00 mm[Hg] Sat 21 22:20:57 EDT 2024 Diastolic Blood Pressure 87.00 mm[Hg] Sat 21 22:20:57 EDT 2024 Heart Rate 66.00 /min Sat 21 22:20 :57 EDT 2024 Systolic Blood Pressure 124.00 mm[Hg] Sat 21 12:56:57 EDT 2024 Diastolic Blood Pressure 67.00 mm[Hg] Sat 21 12:56:57 EDT 2024 Systolic Blood Pressure 107.00 mm[Hg] Sat 21 10:42:00 EDT 2024 Diastolic Blood Pressure 66.00 mm[Hg] Sat 21 10:42:00 EDT 2024 Systolic Blood Pressure 107.00 mm[Hg] Sat 21 10:42:00 EDT 2024 Diastolic Blood Pressure 66.00 mm[Hg] Sat 21 10:42:00 EDT 2024 Systolic Blood Pressure 107.00 mm[Hg] Sat 21 10:42:00 EDT 2024 Diastolic Blood Pressure 66.00 mm[Hg] Sat 21 10:42:00 EDT 2024 Systolic Blood Pressure 107.00 mm[Hg] Sat 21 10:42:00 EDT 2024 Diastolic Blood Pressure 66.00 mm[Hg] Sat 21 10:42:00 EDT 2024 Heart Rate 81.00 /min SatSep 18 10:42 :00 EDT 2024 Systolic Blood Pressure 107.00 mm[Hg] Sat 21 08:15:15 EDT 2024 Diastolic Blood Pressure 66.00 mm[Hg] Sat 21 08:15:15 EDT 2024 Heart Rate 81.00 /min Sat 21 08:15 :15 EDT 2024 Systolic Blood Pressure 132.00 mm[Hg] [place]antha[place] 20 21:15:48 EDT 2024 Diastolic Blood Pressure 77.00 mm[Hg] Samanthaaug 20 21:15:48 EDT 2024 Systolic Blood Pressure 132.00 mm[Hg] Samanthaaug 20 21:15:48 EDT 2024 Diastolic Blood Pressure 77.00 mm[Hg] Samanthaaug 20 21:15:48 EDT 2024 Systolic Blood Pressure 132.00 mm[Hg] Samanthaaug 20 21:15:48 EDT 2024 Diastolic Blood Pressure 77.00 mm[Hg] Samanthaaug 20 21:15:48 EDT 2024 Heart Rate 75.00 /min Samanthaaug 20 21:15 :48 EDT 2024 Systolic Blood Pressure 141.00 mm[Hg] Samanthaaug 20 12:49:45 EDT 2024 Diastolic Blood Pressure 74.00 mm[Hg] Samanthaaug 20 12:49:45 EDT 2024 Systolic Blood Pressure 148.00 mm[Hg] Samantha Mar 20 09:13:12 EDT 2024 Diastolic Blood Pressure 79.00 mm[Hg] Samantha Mar 20 09:13:12 EDT 2024 Systolic Blood Pressure 148.00 mm[Hg] Samantha Mar 20 09:13:12 EDT 2024 Diastolic Blood Pressure 79.00 mm[Hg] Samantha Mar 20 09:13:12 EDT 2024 Systolic Blood Pressure 148.00 mm[Hg] Samantha Mar 20 09:13:12 EDT 5 Diastolic Blood Pressure 79.00 mm[Hg] Samantha Aug 20 09:13:12 EDT 5 Systolic Blood Pressure 148.00 mm[Hg] Samantha Mar 20 09:13:12 EDT 2024 Diastolic Blood Pressure 79.00 mm[Hg] Samantha Aug 20 09:13:12 EDT 2024 Heart Rate 91.00 /min Sat 20 09:13 :12 EDT 2024 Systolic Blood Pressure 137.00 mm[Hg] Sat 19 20:25:01 EDT 2024 Diastolic Blood Pressure 81.00 mm[Hg] Sat 19 20:25:01 EDT 2024 Systolic Blood Pressure 137.00 mm[Hg] Sat 19 20:25:01 EDT 2024 Diastolic Blood Pressure 81.00 mm[Hg] Sat 19 20:25:01 EDT 2024 Systolic Blood Pressure 137.00 mm[Hg] Sat 19 20:25:01 EDT 2024 Diastolic Blood Pressure 81.00 mm[Hg] Sat 19 20:25:01 EDT 2024 Heart Rate 85.00 /min Sat 19 20:25 :01 EDT 2024 Systolic Blood Pressure 117.00 mm[Hg] Sat 19 15:12:32 EDT 2024 Diastolic Blood Pressure 69.00 mm[Hg] Sat 19 15:12:32 EDT 2024 Systolic Blood Pressure 148.00 mm[Hg] Sat 19 14:36:07 EDT 2024 Diastolic Blood Pressure 75.00 mm[Hg] Sat 19 14:36:07 EDT 2024 Heart Rate 81.00 /min Sat 19 14:36 :07 EDT 2024 Body temperature 97.90 [degF] Sat 19 14:3 6:07 EDT 2024 Respiratory rate 18.00 /min Sat 19 14:3 6:07 EDT 2024 Pulse Oximetry 95.00 % Sat 19 14:36 :07 EDT 2024 Systolic Blood Pressure 148.00 mm[Hg] Sat 19 11:08:47 EDT 2024 Diastolic Blood Pressure 75.00 mm[Hg] Sat 19 11:08:47 EDT 2024 Systolic Blood Pressure 148.00 mm[Hg] Sat 19 11:08:47 EDT 2024 Diastolic Blood Pressure 75.00 mm[Hg] Sat 19 11:08:47 EDT 2024 Systolic Blood Pressure 148.00 mm[Hg] Sat 19 11:08:47 EDT 2024 Diastolic Blood Pressure 75.00 mm[Hg] SatSep 16 11:08:47 EDT 2024 Systolic Blood Pressure 148.00 mm[Hg] SatSep 16 11:08:47 EDT 2024 Diastolic Blood Pressure 75.00 mm[Hg] SatSep 16 11:08:47 EDT 2024 Heart Rate 81.00 /min SatSep 16 11:08 :47 EDT 2024 Systolic Blood Pressure 148.00 mm[Hg] SatSep 16 08:15:42 EDT 2024 Diastolic Blood Pressure 75.00 mm[Hg] SatSep 16 08:15:42 EDT 2024 Body temperature 97.90 [degF] SatSep 16 08:1 5:42 EDT 2024 Respiratory rate 18.00 /min SatSep 16 08:1 5:42 EDT 2024 Pulse Oximetry 95.00 % SatSep 16 08:15 :42 EDT 2024 Heart Rate 81.00 /min SatSep 16 08:15 :42 EDT 2024 Systolic Blood Pressure 152.00 mm[Hg] Sat 18 22:54:47 EDT 2024 Diastolic Blood Pressure 80.00 mm[Hg] Sat 18 22:54:47 EDT 2024 Systolic Blood Pressure 152.00 mm[Hg] Sat 18 22:54:47 EDT 2024 Diastolic Blood Pressure 80.00 mm[Hg] Sat 18 22:54:47 EDT 2024 Systolic Blood Pressure 152.00 mm[Hg] Sat 18 22:54:47 EDT 2024 Diastolic Blood Pressure 80.00 mm[Hg] Sat 18 22:54:47 EDT 2024 Heart Rate 73.00 /min Sat 18 22:54 :47 EDT 2024 Systolic Blood Pressure 131.00 mm[Hg] Sat 18 13:02:24 EDT 2024 Diastolic Blood Pressure 89.00 mm[Hg] Sat 18 13:02:24 EDT 2024 Systolic Blood Pressure 104.00 mm[Hg] Sat 18 09:55:21 EDT 2024 Diastolic Blood Pressure 64.00 mm[Hg] Sat 18 09:55:21 EDT 2024 Systolic Blood Pressure 104.00 mm[Hg] Sat 18 09:55:21 EDT 5 Diastolic Blood Pressure 64.00 mm[Hg] [place] Aug 18 09:55:21 EDT 5 Systolic Blood Pressure 104.00 mm[Hg] [place] Aug 18 09:55:21 EDT 2024 Diastolic Blood Pressure 64.00 mm[Hg] [place] Aug 18 09:55:21 EDT 2024 Systolic Blood Pressure 104.00 mm[Hg] [place] Aug 18 09:55:21 EDT 2024 Diastolic Blood Pressure 64.00 mm[Hg] [place] Aug 18 09:55:21 EDT 5 Heart Rate 72.00 /min [facility] Aug 18 09:55 :21 EDT 2024 Systolic Blood Pressure 104.00 mm[Hg] [place] Aug 18 08:15:29 EDT 2024 Diastolic Blood Pressure 64.00 mm[Hg] [facility] Aug 18 08:15:29 EDT 2024 Heart Rate 72.00 /min [facility] Aug 18 08:15 :29 EDT 2024 Systolic Blood Pressure 138.00 mm[Hg] Sat 17 21:51:09 EDT 2024 Diastolic Blood Pressure 72.00 mm[Hg] Sat 17 21:51:09 EDT 2024 Systolic Blood Pressure 138.00 mm[Hg] Sat 17 21:51:09 EDT 2024 Diastolic Blood Pressure 72.00 mm[Hg] Sat 17 21:51:09 EDT 2024 Systolic Blood Pressure 138.00 mm[Hg] Sat 17 21:51:09 EDT 2024 Diastolic Blood Pressure 72.00 mm[Hg] Sat 17 21:51:09 EDT 2024 Heart Rate 68.00 /min Sat 17 21:51 :09 EDT 2024 Systolic Blood Pressure 107.00 mm[Hg] Sat 17 13:37:32 EDT 2024 Diastolic Blood Pressure 64.00 mm[Hg] Sat 17 13:37:32 EDT 2024 Systolic Blood Pressure 139.00 mm[Hg] Sat 17 10:06:22 EDT 2024 Diastolic Blood Pressure 78.00 mm[Hg] Sat 17 10:06:22 EDT 2024 Systolic Blood Pressure 139.00 mm[Hg] Sat 17 10:06:22 EDT 2024 Diastolic Blood Pressure 78.00 mm[Hg] Sat 17 10:06:22 EDT 2024 Systolic Blood Pressure 139.00 mm[Hg] Sat 17 10:06:22 EDT 2024 Diastolic Blood Pressure 78.00 mm[Hg] Mon Mar 17 10:06:22 EDT 2024 Systolic Blood Pressure 139.00 mm[Hg] Mon Mar 17 10:06:22 EDT 2024 Diastolic Blood Pressure 78.00 mm[Hg] Mon Mar 17 10:06:22 EDT 5 Heart Rate 77.00 /min Mon Aug 17 10:06 :22 EDT 2024 Systolic Blood Pressure 163.00 mm[Hg] Mon Mar 17 08:12:18 EDT 2024 Diastolic Blood Pressure 86.00 mm[Hg] Mon Aug 17 08:12:18 EDT 2024 Heart Rate 78.00 /min Mon Aug 17 08:12 :18 EDT 2024 Pulse Oximetry 99.00 % Sat 17 08:12 :18 EDT 2024 Systolic Blood Pressure 139.00 mm[Hg] Sat 17 08:09:23 EDT 2024 Diastolic Blood Pressure 78.00 mm[Hg] Sat 17 08:09:23 EDT 5 Pulse Oximetry 86.00 % Sat 17 08:09 :23 EDT 5 Heart Rate 77.00 /min Sat 17 08:09 :23 EDT 2024 Systolic Blood Pressure 144.00 mm[Hg] Sun Mar 16 22:42:13 EDT 2024 Diastolic Blood Pressure 95.00 mm[Hg] Sun Mar 16 22:42:13 EDT 2024 Systolic Blood Pressure 144.00 mm[Hg] Sun Mar 16 22:42:13 EDT 2024 Diastolic Blood Pressure 95.00 mm[Hg] Sun Mar 16 22:42:13 EDT 2024 Systolic Blood Pressure 144.00 mm[Hg] Sun Mar 16 22:42:13 EDT 2024 Diastolic Blood Pressure 95.00 mm[Hg] Sun Mar 16 22:42:13 EDT 2024 Heart Rate 68.00 /min Sun Mar 16 22:42 :13 EDT 2024 Systolic Blood Pressure 105.00 mm[Hg] Sun Mar 16 12:30:46 EDT 2024 Diastolic Blood Pressure 67.00 mm[Hg] Sun Mar 16 12:30:46 EDT 2024 Systolic Blood Pressure 123.00 mm[Hg] Sun Mar 16 11:04:56 EDT 2024 Diastolic Blood Pressure 66.00 mm[Hg] Sun Mar 16 11:04:56 EDT 2024 Systolic Blood Pressure 123.00 mm[Hg] Sun Mar 16 11:04:56 EDT 2024 Diastolic Blood Pressure 66.00 mm[Hg] Sun Mar 16 11:04:56 EDT 2024 Systolic Blood Pressure 123.00 mm[Hg] Sun Mar 16 11:04:56 EDT 2024 Diastolic Blood Pressure 66.00 mm[Hg] Sun Mar 16 11:04:56 EDT 2024 Systolic Blood Pressure 123.00 mm[Hg] Sun Mar 16 11:04:56 EDT 2024 Diastolic Blood Pressure 66.00 mm[Hg] Sun Mar 16 11:04:56 EDT 2024 Heart Rate 94.00 /min Sun Mar 16 11:04 :56 EDT 2024 Systolic Blood Pressure 146.00 mm[Hg] Sun Mar 16 00:21:29 EDT 2024 Diastolic Blood Pressure 79.00 mm[Hg] Sun Mar 16 00:21:29 EDT 2024 Systolic Blood Pressure 146.00 mm[Hg] Sun Mar 16 00:21:29 EDT 2024 Diastolic Blood Pressure 79.00 mm[Hg] Sun Mar 16 00:21:29 EDT 2024 Systolic Blood Pressure 146.00 mm[Hg] Sun Mar 16 00:21:29 EDT 2024 Diastolic Blood Pressure 79.00 mm[Hg] Sun Mar 16 00:21:29 EDT 2024 Heart Rate 67.00 /min Sun Mar 16 00:21 :29 EDT 2024 Systolic Blood Pressure 132.00 mm[Hg] Sat Mar 15 12:38:22 EDT 2024 Diastolic Blood Pressure 88.00 mm[Hg] Sat Mar 15 12:38:22 EDT 2024 Systolic Blood Pressure 142.00 mm[Hg] Sat Mar 15 10:56:53 EDT 2024 Diastolic Blood Pressure 66.00 mm[Hg] Sat Mar 15 10:56:53 EDT 2024 Systolic Blood Pressure 142.00 mm[Hg] Sat Mar 15 10:56:53 EDT 2024 Diastolic Blood Pressure 66.00 mm[Hg] Sat Mar 15 10:56:53 EDT 2024 Systolic Blood Pressure 142.00 mm[Hg] Sat Mar 15 10:56:53 EDT 2024 Diastolic Blood Pressure 66.00 mm[Hg] Sat Mar 15 10:56:53 EDT 2024 Systolic Blood Pressure 142.00 mm[Hg] Sat Mar 15 10:56:53 EDT 2024 Diastolic Blood Pressure 66.00 mm[Hg] Sat Mar 15 10:56:53 EDT 2024 Heart Rate 96.00 /min Sat Mar 15 10:56 :53 EDT 2024 Systolic Blood Pressure 142.00 mm[Hg] Sat Mar 15 08:00:45 EDT 2024 Diastolic Blood Pressure 66.00 mm[Hg] Sat Mar 15 08:00:45 EDT 2024 Heart Rate 96.00 /min Sat Mar 15 08:00 :45 EDT 2024 Pulse Oximetry 90.00 % Sat Mar 15 08:00 :45 EDT 2024 Systolic Blood Pressure 149.00 mm[Hg] Sat Mar 14 23:47:53 EDT 2024 Diastolic Blood Pressure 80.00 mm[Hg] Sat Mar 14 23:47:53 EDT 2024 Systolic Blood Pressure 149.00 mm[Hg] Sat Mar 14 23:47:53 EDT 2024 Diastolic Blood Pressure 80.00 mm[Hg] Sat Mar 14 23:47:53 EDT 2024 Systolic Blood Pressure 149.00 mm[Hg] Sat Mar 14 23:47:53 EDT 2024 Diastolic Blood Pressure 80.00 mm[Hg] Sat Mar 14 23:47:53 EDT 2024 Heart Rate 78.00 /min Sat Mar 14 23:47 :53 EDT 2024 Systolic Blood Pressure 137.00 mm[Hg] Sat Mar 14 13:12:19 EDT 2024 Diastolic Blood Pressure 79.00 mm[Hg] Sat Mar 14 13:12:19 EDT 2024 Systolic Blood Pressure 137.00 mm[Hg] Sat Mar 14 10:35:26 EDT 2024 Diastolic Blood Pressure 74.00 mm[Hg] Sat Mar 14 10:35:26 EDT 2024 Systolic Blood Pressure 137.00 mm[Hg] Sat Mar 14 10:35:26 EDT 2024 Diastolic Blood Pressure 74.00 mm[Hg] Sat Mar 14 10:35:26 EDT 2024 Systolic Blood Pressure 137.00 mm[Hg] Sat Mar 14 10:35:26 EDT 2024 Diastolic Blood Pressure 74.00 mm[Hg] Sat Mar 14 10:35:26 EDT 2024 Systolic Blood Pressure 137.00 mm[Hg] Sat Mar 14 10:35:26 EDT 2024 Diastolic Blood Pressure 74.00 mm[Hg] Sat Mar 14 10:35:26 EDT 2025 Heart Rate 82.00 /min Sat 14 10:35 :26 EDT 2024 Systolic Blood Pressure 152.00 mm[Hg] Sat 13 21:54:03 EDT 2024 Diastolic Blood Pressure 79.00 mm[Hg] Sat 13 21:54:03 EDT 2024 Systolic Blood Pressure 152.00 mm[Hg] Sat 13 21:54:03 EDT 2024 Diastolic Blood Pressure 79.00 mm[Hg] Sat 13 21:54:03 EDT 2024 Systolic Blood Pressure 152.00 mm[Hg] Sat 13 21:54:03 EDT 2024 Diastolic Blood Pressure 79.00 mm[Hg] Sat 13 21:54:03 EDT 2024 Heart Rate 85.00 /min Sat 13 21:54 :03 EDT 2024 Systolic Blood Pressure 145.00 mm[Hg] Sat 13 13:32:46 EDT 2024 Diastolic Blood Pressure 75.00 mm[Hg] Sat 13 13:32:46 EDT 2024 Body weight 272.00 [lb_av] SatSep 10 11:11 :10 EDT 2024 Systolic Blood Pressure 121.00 mm[Hg] Sat 13 10:30:43 EDT 2024 Diastolic Blood Pressure 69.00 mm[Hg] Sat 13 10:30:43 EDT 2024 Systolic Blood Pressure 121.00 mm[Hg] Sat 13 10:30:43 EDT 2024 Diastolic Blood Pressure 69.00 mm[Hg] SatSep 10 10:30:43 EDT 2024 Systolic Blood Pressure 121.00 mm[Hg] SatSep 10 10:30:43 EDT 2024 Diastolic Blood Pressure 69.00 mm[Hg] Sat 13 10:30:43 EDT 2024 Heart Rate 63.00 /min Sat 13 10:30 :43 EDT 2024 Systolic Blood Pressure 121.00 mm[Hg] Sat 13 10:01:26 EDT 2024 Diastolic Blood Pressure 69.00 mm[Hg] Sat 13 10:01:26 EDT 2024 Systolic Blood Pressure 152.00 mm[Hg] Sat 12 21:59:17 EDT 2024 Diastolic Blood Pressure 86.00 mm[Hg] SatSep 09 21:59:17 EDT 2024 Systolic Blood Pressure 152.00 mm[Hg] SatSep 09 21:59:17 EDT 5 Diastolic Blood Pressure 86.00 mm[Hg] SatSep 09 21:59:17 EDT 2024 Systolic Blood Pressure 152.00 mm[Hg] SatSep 09 21:59:17 EDT 2024 Diastolic Blood Pressure 86.00 mm[Hg] SatSep 09 21:59:17 EDT 2024 Heart Rate 72.00 /min SatSep 09 21:59 :17 EDT 2024 Systolic Blood Pressure 146.00 mm[Hg] SatSep 09 17:12:56 EDT 2024 Diastolic Blood Pressure 76.00 mm[Hg] SatSep 09 17:12:56 EDT 2024 Heart Rate 77.00 /min SatSep 09 17:12 :56 EDT 2024 Body temperature 97.30 [degF] SatSep 09 17:1 2:56 EDT 2024 Respiratory rate 20.00 /min SatSep 09 17:1 2:56 EDT 2024 Pulse Oximetry 97.00 % SatSep 09 17:12 :56 EDT 2024 Systolic Blood Pressure 128.00 mm[Hg] SatSep 09 16:22:24 EDT 2024 Diastolic Blood Pressure 68.00 mm[Hg] SatSep 09 16:22:24 EDT 2024 Body weight 271.20 [lb_av] SatSep 09 15:38 :32 EDT 2024 Systolic Blood Pressure 146.00 mm[Hg] SatSep 09 12:00:28 EDT 2024 Diastolic Blood Pressure 76.00 mm[Hg] SatSep 09 12:00:28 EDT 2024 Systolic Blood Pressure 146.00 mm[Hg] SatSep 09 12:00:28 EDT 2024 Diastolic Blood Pressure 76.00 mm[Hg] SatSep 09 12:00:28 EDT 2024 Systolic Blood Pressure 146.00 mm[Hg] SatSep 09 12:00:28 EDT 2024 Diastolic Blood Pressure 76.00 mm[Hg] SatSep 09 12:00:28 EDT 2024 Systolic Blood Pressure 146.00 mm[Hg] SatSep 09 12:00:28 EDT 2024 Diastolic Blood Pressure 76.00 mm[Hg] SatSep 09 12:00:28 EDT 2024 Heart Rate 77.00 /min SatSep 09 12:00 :28 EDT 2024 Systolic Blood Pressure 153.00 mm[Hg] SatSep 08 21:50:31 EDT 2024 Diastolic Blood Pressure 74.00 mm[Hg] SatSep 08 21:50:31 EDT 2024 Systolic Blood Pressure 153.00 mm[Hg] SatSep 08 21:50:31 EDT 2024 Diastolic Blood Pressure 74.00 mm[Hg] SatSep 08 21:50:31 EDT 2024 Systolic Blood Pressure 153.00 mm[Hg] SatSep 08 21:50:31 EDT 2024 Diastolic Blood Pressure 74.00 mm[Hg] SatSep 08 21:50:31 EDT 2024 Heart Rate 85.00 /min SatSep 08 21:50 :31 EDT 2024 Systolic Blood Pressure 142.00 mm[Hg] SatSep 08 14:51:54 EDT 2024 Diastolic Blood Pressure 83.00 mm[Hg] SatSep 08 14:51:54 EDT 2024 Systolic Blood Pressure 135.00 mm[Hg] SatSep 08 10:23:03 EDT 2024 Diastolic Blood Pressure 83.00 mm[Hg] SatSep 08 10:23:03 EDT 2024 Systolic Blood Pressure 135.00 mm[Hg] SatSep 08 10:23:03 EDT 2024 Diastolic Blood Pressure 83.00 mm[Hg] SatSep 08 10:23:03 EDT 2024 Systolic Blood Pressure 135.00 mm[Hg] SatSep 08 10:23:03 EDT 2024 Diastolic Blood Pressure 83.00 mm[Hg] SatSep 08 10:23:03 EDT 2024 Systolic Blood Pressure 135.00 mm[Hg] SatSep 08 10:23:03 EDT 2024 Diastolic Blood Pressure 83.00 mm[Hg] SatSep 08 10:23:03 EDT 2024 Heart Rate 82.00 /min SatSep 08 10:23 :03 EDT 2024 Systolic Blood Pressure 109.00 mm[Hg] SatSep 07 22:09:54 EDT 2024 Diastolic Blood Pressure 82.00 mm[Hg] SatSep 07 22:09:54 EDT 2024 Systolic Blood Pressure 109.00 mm[Hg] SatSep 07 22:09:54 EDT 2024 Diastolic Blood Pressure 82.00 mm[Hg] SatSep 07 22:09:54 EDT 2024 Systolic Blood Pressure 109.00 mm[Hg] SatSep 07 22:09:54 EDT 2025 Diastolic Blood Pressure 82.00 mm[Hg] Mon Mar 10 22:09:54 EDT 5 Heart Rate 93.00 /min Mon Mar 10 22:09 :54 EDT 2024 Systolic Blood Pressure 114.00 mm[Hg] Mon Mar 10 12:50:14 EDT 2024 Diastolic Blood Pressure 67.00 mm[Hg] Mon Mar 10 12:50:14 EDT 2024 Systolic Blood Pressure 121.00 mm[Hg] Mon Mar 10 10:52:20 EDT 2024 Diastolic Blood Pressure 78.00 mm[Hg] Mon Mar 10 10:52:20 EDT 2024 Systolic Blood Pressure 121.00 mm[Hg] Mon Mar 10 10:52:20 EDT 2024 Diastolic Blood Pressure 78.00 mm[Hg] Mon Mar 10 10:52:20 EDT 2024 Systolic Blood Pressure 121.00 mm[Hg] Mon Aug 10 10:52:20 EDT 2024 Diastolic Blood Pressure 78.00 mm[Hg] Mon Aug 10 10:52:20 EDT 2024 Systolic Blood Pressure 121.00 mm[Hg] Mon Mar 10 10:52:20 EDT 2024 Diastolic Blood Pressure 78.00 mm[Hg] Sat 10 10:52:20 EDT 2024 Heart Rate 87.00 /min Sat 10 10:52 :20 EDT 2024 Systolic Blood Pressure 121.00 mm[Hg] Sat 10 09:17:50 EDT 2024 Diastolic Blood Pressure 78.00 mm[Hg] Sat 10 09:17:50 EDT 2024 Heart Rate 87.00 /min Sat 10 09:17 :50 EDT 2024 Pulse Oximetry 94.00 % Sat 10 09:17 :50 EDT 5 Systolic Blood Pressure 149.00 mm[Hg] Sun Sep 06 23:07:40 EDT 2024 Diastolic Blood Pressure 85.00 mm[Hg] Sun Sep 06 23:07:40 EDT 2024 Systolic Blood Pressure 149.00 mm[Hg] Sun Sep 06 23:07:40 EDT 2024 Diastolic Blood Pressure 85.00 mm[Hg] Sun Sep 06 23:07:40 EDT 2024 Systolic Blood Pressure 149.00 mm[Hg] Sun Sep 06 23:07:40 EDT 2024 Diastolic Blood Pressure 85.00 mm[Hg] Sun Sep 06 23:07:40 EDT 2024 Heart Rate 78.00 /min Sun Mar 09 23:07 :40 EDT 2024 Systolic Blood Pressure 131.00 mm[Hg] Sun Mar 09 13:25:58 EDT 2024 Diastolic Blood Pressure 91.00 mm[Hg] Sun Mar 09 13:25:58 EDT 2024 Systolic Blood Pressure 121.00 mm[Hg] Sun Mar 09 10:24:48 EDT 2024 Diastolic Blood Pressure 75.00 mm[Hg] Sun Mar 09 10:24:48 EDT 2024 Systolic Blood Pressure 121.00 mm[Hg] Sun Mar 09 10:24:48 EDT 2024 Diastolic Blood Pressure 75.00 mm[Hg] Sun Mar 09 10:24:48 EDT 2024 Systolic Blood Pressure 121.00 mm[Hg] Sun Mar 09 10:24:48 EDT 2024 Diastolic Blood Pressure 75.00 mm[Hg] Sun Mar 09 10:24:48 EDT 2024 Systolic Blood Pressure 121.00 mm[Hg] Sun Mar 09 10:24:48 EDT 2024 Diastolic Blood Pressure 75.00 mm[Hg] Sun Mar 09 10:24:48 EDT 2024 Heart Rate 78.00 /min Sun Mar 10:24 :48 EDT 2024 Systolic Blood Pressure 121.00 mm[Hg] Sun Mar 09 07:56:29 EDT 2024 Diastolic Blood Pressure 75.00 mm[Hg] Sun Mar 09 07:56:29 EDT 2024 Heart Rate 78.00 /min Sun Mar 07:56 :29 EDT 2024 Pulse Oximetry 97.00 % Sun Mar 09 07:56 :29 EDT 2024 Systolic Blood Pressure 144.00 mm[Hg] Sat Mar 08 20:40:11 EST 2024 Diastolic Blood Pressure 82.00 mm[Hg] Sat Mar 08 20:40:11 EST 2024 Systolic Blood Pressure 144.00 mm[Hg] Sat Mar 08 20:40:11 EST 2024 Diastolic Blood Pressure 82.00 mm[Hg] Sat Mar 08 20:40:11 EST 2024 Systolic Blood Pressure 144.00 mm[Hg] Sat Mar 08 20:40:11 EST 2024 Diastolic Blood Pressure 82.00 mm[Hg] Sat Mar 08 20:40:11 EST 2024 Heart Rate 66.00 /min Sat Mar 08 20:40 :11 EST 2024 Systolic Blood Pressure 108.00 mm[Hg] Sat Mar 08 13:29:20 EST 2024 Diastolic Blood Pressure 65.00 mm[Hg] Sat 08 13:29:20 EST 2024 Systolic Blood Pressure 157.00 mm[Hg] Sat 08 11:19:59 EST 2024 Diastolic Blood Pressure 79.00 mm[Hg] Sat 08 11:19:59 EST 2024 Systolic Blood Pressure 157.00 mm[Hg] Sat 08 11:19:59 EST 2024 Diastolic Blood Pressure 79.00 mm[Hg] Sat 08 11:19:59 EST 2024 Systolic Blood Pressure 157.00 mm[Hg] Sat 08 11:19:59 EST 2024 Diastolic Blood Pressure 79.00 mm[Hg] Sat 08 11:19:59 EST 2024 Systolic Blood Pressure 157.00 mm[Hg] Sat 08 11:19:59 EST 2024 Diastolic Blood Pressure 79.00 mm[Hg] Sat 08 11:19:59 EST 2024 Heart Rate 65.00 /min Sat 08 11:19 :59 EST 2024 Systolic Blood Pressure 156.00 mm[Hg] Sat 07 23:42:09 EST 2024 Diastolic Blood Pressure 83.00 mm[Hg] Sat 07 23:42:09 EST 2024 Systolic Blood Pressure 156.00 mm[Hg] Sat 07 23:42:09 EST 2024 Diastolic Blood Pressure 83.00 mm[Hg] Sat 07 23:42:09 EST 2024 Systolic Blood Pressure 156.00 mm[Hg] Sat 07 23:42:09 EST 2024 Diastolic Blood Pressure 83.00 mm[Hg] SatSep 04 23:42:09 EST 2024 Heart Rate 76.00 /min SatSep 04 23:42 :09 EST 2024 Systolic Blood Pressure 148.00 mm[Hg] Sat 07 13:13:21 EST 2024 Diastolic Blood Pressure 86.00 mm[Hg] Sat 07 13:13:21 EST 2024 Systolic Blood Pressure 130.00 mm[Hg] Sat 07 10:34:59 EST 2024 Diastolic Blood Pressure 62.00 mm[Hg] Sat 07 10:34:59 EST 2024 Systolic Blood Pressure 130.00 mm[Hg] Sat 07 10:34:59 EST 2024 Diastolic Blood Pressure 62.00 mm[Hg] SatSep 04 10:34:59 EST 2024 Systolic Blood Pressure 130.00 mm[Hg] SatSep 04 10:34:59 EST 2024 Diastolic Blood Pressure 62.00 mm[Hg] SatSep 04 10:34:59 EST 2024 Systolic Blood Pressure 130.00 mm[Hg] SatSep 04 10:34:59 EST 2024 Diastolic Blood Pressure 62.00 mm[Hg] SatSep 04 10:34:59 EST 2024 Heart Rate 94.00 /min SatSep 04 10:34 :59 EST 2024 Systolic Blood Pressure 130.00 mm[Hg] SatSep 04 08:16:31 EST 2024 Diastolic Blood Pressure 62.00 mm[Hg] SatSep 04 08:16:31 EST 2024 Pulse Oximetry 94.00 % SatSep 04 08:16 :31 EST 2024 Heart Rate 94.00 /min SatSep 04 08:16 :31 EST 2024 Systolic Blood Pressure 136.00 mm[Hg] Sat 06 21:00:04 EST 2024 Diastolic Blood Pressure 77.00 mm[Hg] Sat 06 21:00:04 EST 2024 Systolic Blood Pressure 136.00 mm[Hg] Sat 06 21:00:04 EST 2024 Diastolic Blood Pressure 77.00 mm[Hg] Sat 06 21:00:04 EST 2024 Systolic Blood Pressure 136.00 mm[Hg] Sat 06 21:00:04 EST 2024 Diastolic Blood Pressure 77.00 mm[Hg] Sat 06 21:00:04 EST 2024 Heart Rate 78.00 /min Sat 06 21:00 :04 EST 2024 Systolic Blood Pressure 124.00 mm[Hg] Sat 06 13:51:17 EST 2024 Diastolic Blood Pressure 87.00 mm[Hg] Sat 06 13:51:17 EST 2024 Systolic Blood Pressure 128.00 mm[Hg] Sat 06 11:47:17 EST 2024 Diastolic Blood Pressure 76.00 mm[Hg] Sat 06 11:47:17 EST 2024 Systolic Blood Pressure 128.00 mm[Hg] Sat 06 11:47:17 EST 2024 Diastolic Blood Pressure 76.00 mm[Hg] Sat 06 11:47:17 EST 2024 Systolic Blood Pressure 128.00 mm[Hg] Sat 06 11:47:17 EST 2024 Diastolic Blood Pressure 76.00 mm[Hg] Sat 06 11:47:17 EST 2024 Systolic Blood Pressure 128.00 mm[Hg] Sat 06 11:47:17 EST 2024 Diastolic Blood Pressure 76.00 mm[Hg] Samantha Aug 06 11:47:17 EST 2024 Heart Rate 76.00 /min Sat 06 11:47 :17 EST 2024 Systolic Blood Pressure 158.00 mm[Hg] Sat 05 20:34:12 EST 2024 Diastolic Blood Pressure 76.00 mm[Hg] Sat 05 20:34:12 EST 2024 Systolic Blood Pressure 158.00 mm[Hg] Sat 05 20:34:12 EST 2024 Diastolic Blood Pressure 76.00 mm[Hg] Sat 05 20:34:12 EST 2024 Systolic Blood Pressure 158.00 mm[Hg] Sat 05 20:34:12 EST 2024 Diastolic Blood Pressure 76.00 mm[Hg] Sat 05 20:34:12 EST 2024 Heart Rate 72.00 /min Sat 05 20:34 :12 EST 2024 Systolic Blood Pressure 156.00 mm[Hg] Sat 05 14:18:05 EST 2024 Diastolic Blood Pressure 88.00 mm[Hg] Sat 05 14:18:05 EST 2024 Systolic Blood Pressure 154.00 mm[Hg] Sat 05 10:14:38 EST 2024 Diastolic Blood Pressure 82.00 mm[Hg] Sat 05 10:14:38 EST 2024 Systolic Blood Pressure 154.00 mm[Hg] Sat 05 10:14:38 EST 2024 Diastolic Blood Pressure 82.00 mm[Hg] Sat 05 10:14:38 EST 2024 Systolic Blood Pressure 154.00 mm[Hg] Sat 05 10:14:38 EST 2024 Diastolic Blood Pressure 82.00 mm[Hg] Sat 05 10:14:38 EST 2024 Systolic Blood Pressure 154.00 mm[Hg] Sat 05 10:14:38 EST 2024 Diastolic Blood Pressure 82.00 mm[Hg] Sat 05 10:14:38 EST 2024 Systolic Blood Pressure 154.00 mm[Hg] Sat 05 10:14:38 EST 2024 Diastolic Blood Pressure 82.00 mm[Hg] Sat 05 10:14:38 EST 2024 Heart Rate 92.00 /min Sat 05 10:14 :38 EST 2024 Heart Rate 92.00 /min Sat 05 10:14 :38 EST 2024 Pulse Oximetry 95.00 % Sat 05 10:14 :38 EST 2024 Respiratory rate 20.00 /min SatSep 02 10:1 4:38 EST 2024 Body temperature 97.80 [degF] SatSep 02 10:1 4:38 EST 2024 Systolic Blood Pressure 146.00 mm[Hg] Sat 04 23:21:20 EST 2024 Diastolic Blood Pressure 78.00 mm[Hg] Sat 04 23:21:20 EST 2024 Systolic Blood Pressure 146.00 mm[Hg] Sat 04 23:21:20 EST 2024 Diastolic Blood Pressure 78.00 mm[Hg] Sat 04 23:21:20 EST 2024 Systolic Blood Pressure 146.00 mm[Hg] SatSep 01 23:21:20 EST 2024 Diastolic Blood Pressure 78.00 mm[Hg] SatSep 01 23:21:20 EST 2024 Heart Rate 96.00 /min SatSep 01 23:21 :20 EST 2024 Systolic Blood Pressure 152.00 mm[Hg] SatSep 01 14:14:01 EST 2024 Diastolic Blood Pressure 88.00 mm[Hg] SatSep 01 14:14:01 EST 2024 Systolic Blood Pressure 150.00 mm[Hg] SatSep 01 10:27:31 EST 2024 Diastolic Blood Pressure 86.00 mm[Hg] SatSep 01 10:27:31 EST 2024 Systolic Blood Pressure 150.00 mm[Hg] SatSep 01 10:27:31 EST 2024 Diastolic Blood Pressure 86.00 mm[Hg] SatSep 01 10:27:31 EST 2024 Systolic Blood Pressure 150.00 mm[Hg] SatSep 01 10:27:31 EST 2024 Diastolic Blood Pressure 86.00 mm[Hg] SatSep 01 10:27:31 EST 2024 Systolic Blood Pressure 150.00 mm[Hg] Sat 04 10:27:31 EST 2024 Diastolic Blood Pressure 86.00 mm[Hg] SatSep 01 10:27:31 EST 2024 Heart Rate 77.00 /min Sat 04 10:27 :31 EST 2024 Systolic Blood Pressure 134.00 mm[Hg] SatAug 31 23:36:47 EST 2024 Diastolic Blood Pressure 82.00 mm[Hg] SatAug 31 23:36:47 EST 2024 Systolic Blood Pressure 134.00 mm[Hg] SatAug 31 23:36:47 EST 2024 Diastolic Blood Pressure 82.00 mm[Hg] SatAug 31 23:36:47 EST 2024 Systolic Blood Pressure 134.00 mm[Hg] SatAug 31 23:36:47 EST 2024 Diastolic Blood Pressure 82.00 mm[Hg] SatAug 31 23:36:47 EST 2024 Heart Rate 80.00 /min SatAug 31 23:36 :47 EST 2024 Systolic Blood Pressure 129.00 mm[Hg] SatAug 31 14:33:05 EST 2024 Diastolic Blood Pressure 76.00 mm[Hg] SatAug 31 14:33:05 EST 2024 Systolic Blood Pressure 131.00 mm[Hg] SatAug 31 11:04:38 EST 2024 Diastolic Blood Pressure 65.00 mm[Hg] SatAug 31 11:04:38 EST 2024 Systolic Blood Pressure 131.00 mm[Hg] SatAug 31 11:04:38 EST 2024 Diastolic Blood Pressure 65.00 mm[Hg] SatAug 31 11:04:38 EST 2024 Systolic Blood Pressure 131.00 mm[Hg] SatAug 31 11:04:38 EST 2024 Diastolic Blood Pressure 65.00 mm[Hg] SatAug 31 11:04:38 EST 2024 Systolic Blood Pressure 131.00 mm[Hg] SatAug 31 11:04:38 EST 2024 Diastolic Blood Pressure 65.00 mm[Hg] SatAug 31 11:04:38 EST 2024 Heart Rate 79.00 /min SatAug 31 11:04 :38 EST 2024 Systolic Blood Pressure 131.00 mm[Hg] SatAug 31 07:59:20 EST 2024 Diastolic Blood Pressure 65.00 mm[Hg] Sat 03 07:59:20 EST 2024 Pulse Oximetry 95.00 % Sat 03 07:59 :20 EST 2024 Heart Rate 79.00 /min Sat 03 07:59 :20 EST 2024 Systolic Blood Pressure 119.00 mm[Hg] SatAug 30 23:26:15 EST 2024 Diastolic Blood Pressure 83.00 mm[Hg] SatAug 30 23:26:15 EST 2024 Systolic Blood Pressure 119.00 mm[Hg] Sat 02 23:26:15 EST 2024 Diastolic Blood Pressure 83.00 mm[Hg] Sat 02 23:26:15 EST 2024 Systolic Blood Pressure 119.00 mm[Hg] Sat 02 23:26:15 EST 2024 Diastolic Blood Pressure 83.00 mm[Hg] SatAug 30 23:26:15 EST 2024 Heart Rate 62.00 /min Sun Mar 02 23:26 :15 EST 2024 Systolic Blood Pressure 117.00 mm[Hg] Sun Mar 02 12:24:25 EST 2024 Diastolic Blood Pressure 70.00 mm[Hg] Sun Mar 02 12:24:25 EST 2024 Systolic Blood Pressure 121.00 mm[Hg] Sun Mar 02 09:48:12 EST 2024 Diastolic Blood Pressure 73.00 mm[Hg] Sun Mar 02 09:48:12 EST 2024 Systolic Blood Pressure 121.00 mm[Hg] Sun Mar 02 09:48:12 EST 2024 Diastolic Blood Pressure 73.00 mm[Hg] Sun Mar 02 09:48:12 EST 2024 Systolic Blood Pressure 121.00 mm[Hg] Sun Mar 02 09:48:12 EST 2024 Diastolic Blood Pressure 73.00 mm[Hg] Sun Mar 02 09:48:12 EST 2024 Systolic Blood Pressure 121.00 mm[Hg] Sun Mar 02 09:48:12 EST 2024 Diastolic Blood Pressure 73.00 mm[Hg] Sun Mar 02 09:48:12 EST 2024 Heart Rate 87.00 /min Sun Mar 02 09:48 :12 EST 2024 Systolic Blood Pressure 121.00 mm[Hg] Sun Mar 02 08:25:28 EST 2024 Diastolic Blood Pressure 73.00 mm[Hg] Sun Mar 02 08:25:28 EST 2024 Pulse Oximetry 93.00 % Sun Mar 02 08:25 :28 EST 2024 Heart Rate 87.00 /min Sun Mar 02 08:25 :28 EST 2024 Systolic Blood Pressure 136.00 mm[Hg] Sat Mar 01 23:00:28 EST 2024 Diastolic Blood Pressure 79.00 mm[Hg] Sat Mar 01 23:00:28 EST 2024 Systolic Blood Pressure 136.00 mm[Hg] Sat Mar 01 23:00:28 EST 2024 Diastolic Blood Pressure 79.00 mm[Hg] Sat Mar 01 23:00:28 EST 2024 Systolic Blood Pressure 136.00 mm[Hg] Sat Mar 01 23:00:28 EST 2024 Diastolic Blood Pressure 79.00 mm[Hg] Sat Mar 01 23:00:28 EST 2024 Heart Rate 66.00 /min Sat Mar 01 23:00 :28 EST 2024 Systolic Blood Pressure 136.00 mm[Hg] Sat Mar 01 12:36:57 EST 2024 Diastolic Blood Pressure 80.00 mm[Hg] Sat Mar 01 12:36:57 EST 2024 Systolic Blood Pressure 136.00 mm[Hg] SatAug 29 09:19:30 EST 2024 Diastolic Blood Pressure 80.00 mm[Hg] SatAug 29 09:19:30 EST 2024 Systolic Blood Pressure 136.00 mm[Hg] SatAug 29 09:19:30 EST 2024 Diastolic Blood Pressure 80.00 mm[Hg] SatAug 29 09:19:30 EST 2024 Systolic Blood Pressure 136.00 mm[Hg] SatAug 29 09:19:30 EST 2024 Diastolic Blood Pressure 80.00 mm[Hg] SatAug 29 09:19:30 EST 2024 Systolic Blood Pressure 136.00 mm[Hg] SatAug 29 09:19:30 EST 2024 Diastolic Blood Pressure 80.00 mm[Hg] SatAug 29 09:19:30 EST 2024 Heart Rate 78.00 /min SatAug 29 09:19 :30 EST 2024 Systolic Blood Pressure 149.00 mm[Hg] SatAug 29 07:30:12 EST 2024 Diastolic Blood Pressure 63.00 mm[Hg] SatAug 29 07:30:12 EST 2024 Heart Rate 79.00 /min SatAug 29 07:30 :12 EST 2024 Pulse Oximetry 90.00 % SatAug 29 07:30 :12 EST 2024 Systolic Blood Pressure 139.00 mm[Hg] SatAug 28 21:59:31 EST 2024 Diastolic Blood Pressure 78.00 mm[Hg] SatAug 28 21:59:31 EST 2024 Systolic Blood Pressure 139.00 mm[Hg] SatAug 28 21:59:31 EST 2024 Diastolic Blood Pressure 78.00 mm[Hg] SatAug 28 21:59:31 EST 2024 Systolic Blood Pressure 139.00 mm[Hg] SatAug 28 21:59:31 EST 2024 Diastolic Blood Pressure 78.00 mm[Hg] SatAug 28 21:59:31 EST 2024 Heart Rate 98.00 /min SatAug 28 21:59 :31 EST 2024 Systolic Blood Pressure 168.00 mm[Hg] SatAug 28 13:23:13 EST 2024 Diastolic Blood Pressure 92.00 mm[Hg] SatAug 28 13:23:13 EST 2024 Systolic Blood Pressure 154.00 mm[Hg] SatAug 28 10:18:09 EST 2024 Diastolic Blood Pressure 86.00 mm[Hg] Fri Feb 28 10:18:09 EST 2024 Systolic Blood Pressure 154.00 mm[Hg] Fri Feb 28 10:18:09 EST 5 Diastolic Blood Pressure 86.00 mm[Hg] Fri Feb 28 10:18:09 EST 5 Systolic Blood Pressure 154.00 mm[Hg] Fri Feb 28 10:18:09 EST 5 Diastolic Blood Pressure 86.00 mm[Hg] Fri Feb 28 10:18:09 EST 5 Systolic Blood Pressure 154.00 mm[Hg] Fri Feb 28 10:18:09 EST 5 Diastolic Blood Pressure 86.00 mm[Hg] Fri Feb 28 10:18:09 EST 2024 Heart Rate 102.00 /min Fri Feb 28 10:18 :09 EST 2024 Systolic Blood Pressure 151.00 mm[Hg] Fri Feb 28 08:04:13 EST 5 Diastolic Blood Pressure 104.00 mm[Hg] Fri Feb 28 08:04:13 EST 2024 Heart Rate 95.00 /min Fri Feb 28 08:04 :13 EST 2024 Pulse Oximetry 94.00 % Fri Feb 28 08:04 :13 EST 2024 Systolic Blood Pressure 148.00 mm[Hg] Samantha Feb 27 20:56:11 EST 5 Diastolic Blood Pressure 76.00 mm[Hg] Samantha Feb 27 20:56:11 EST 5 Systolic Blood Pressure 148.00 mm[Hg] Samantha Feb 27 20:56:11 EST 5 Diastolic Blood Pressure 76.00 mm[Hg] Samantha Feb 27 20:56:11 EST 5 Systolic Blood Pressure 148.00 mm[Hg] Samantha Feb 27 20:56:11 EST 5 Diastolic Blood Pressure 76.00 mm[Hg] Samantha Feb 27 20:56:11 EST 5 Heart Rate 72.00 /min Samantha Feb 27 20:56 :11 EST 5 Systolic Blood Pressure 150.00 mm[Hg] Samantha Feb 27 15:33:34 EST 5 Diastolic Blood Pressure 89.00 mm[Hg] Samantha Feb 27 15:33:34 EST 5 Systolic Blood Pressure 132.00 mm[Hg] Samantha Feb 27 09:47:41 EST 5 Diastolic Blood Pressure 81.00 mm[Hg] Samantha Feb 27 09:47:41 EST 2025 Systolic Blood Pressure 132.00 mm[Hg] Samantha Feb 27 09:47:41 EST 5 Diastolic Blood Pressure 81.00 mm[Hg] Samantha Feb 27 09:47:41 EST 2024 Systolic Blood Pressure 132.00 mm[Hg] Samantha Feb 27 09:47:41 EST 5 Diastolic Blood Pressure 81.00 mm[Hg] Samantha Feb 27 09:47:41 EST 5 Systolic Blood Pressure 132.00 mm[Hg] Samantha Feb 27 09:47:41 EST 5 Diastolic Blood Pressure 81.00 mm[Hg] Samantha Feb 27 09:47:41 EST 5 Heart Rate 84.00 /min Samantha Feb 27 09:47 :41 EST 2024 Systolic Blood Pressure 132.00 mm[Hg] Samantha Feb 27 08:55:07 EST 2024 Diastolic Blood Pressure 81.00 mm[Hg] Samantha Feb 27 08:55:07 EST 5 Heart Rate 84.00 /min Samantha Feb 27 08:55 :07 EST 2024 Systolic Blood Pressure 135.00 mm[Hg] Wed Feb 26 22:25:49 EST 5 Diastolic Blood Pressure 72.00 mm[Hg] Wed Feb 26 22:25:49 EST 5 Systolic Blood Pressure 135.00 mm[Hg] Wed Feb 26 22:25:49 EST 2024 Diastolic Blood Pressure 72.00 mm[Hg] Wed Feb 26 22:25:49 EST 5 Systolic Blood Pressure 135.00 mm[Hg] Wed Feb 26 22:25:49 EST 5 Diastolic Blood Pressure 72.00 mm[Hg] Wed Feb 26 22:25:49 EST 5 Heart Rate 75.00 /min Wed Feb 26 22:25 :49 EST 5 Systolic Blood Pressure 124.00 mm[Hg] Wed Feb 26 13:59:26 EST 5 Diastolic Blood Pressure 75.00 mm[Hg] Wed Feb 26 13:59:26 EST 2024 Systolic Blood Pressure 160.00 mm[Hg] Wed Feb 26 12:00:50 EST 5 Diastolic Blood Pressure 82.00 mm[Hg] Wed Feb 26 12:00:50 EST 5 Heart Rate 75.00 /min Wed Feb 26 12:00 :50 EST 2024 Body temperature 98.30 [degF] Wed Feb 26 12:0 0:50 EST 2025 Respiratory rate 18.00 /min Wed Feb 26 12:0 0:50 EST 2024 Pulse Oximetry 89.00 % Wed Feb 26 12:00 :50 EST 5 Systolic Blood Pressure 160.00 mm[Hg] Wed Feb 26 10:33:47 EST 5 Diastolic Blood Pressure 82.00 mm[Hg] Wed Feb 26 10:33:47 EST 5 Systolic Blood Pressure 160.00 mm[Hg] Wed Feb 26 10:33:47 EST 5 Diastolic Blood Pressure 82.00 mm[Hg] Wed Feb 26 10:33:47 EST 5 Systolic Blood Pressure 160.00 mm[Hg] Wed Feb 26 10:33:47 EST 5 Diastolic Blood Pressure 82.00 mm[Hg] Wed Feb 26 10:33:47 EST 5 Systolic Blood Pressure 160.00 mm[Hg] Wed Feb 26 10:33:47 EST 5 Diastolic Blood Pressure 82.00 mm[Hg] Wed Feb 26 10:33:47 EST 5 Heart Rate 75.00 /min Wed Feb 26 10:33 :47 EST 5 Systolic Blood Pressure 160.00 mm[Hg] Wed Feb 26 08:40:16 EST 5 Diastolic Blood Pressure 82.00 mm[Hg] Wed Feb 26 08:40:16 EST 2024 Pulse Oximetry 89.00 % Wed Feb 26 08:40 :16 EST 5 Heart Rate 75.00 /min Wed Feb 26 08:40 :16 EST 5 Systolic Blood Pressure 148.00 mm[Hg] e Feb 25 22:19:37 EST 5 Diastolic Blood Pressure 72.00 mm[Hg] e Feb 25 22:19:37 EST 5 Systolic Blood Pressure 148.00 mm[Hg] e Feb 25 22:19:37 EST 5 Diastolic Blood Pressure 72.00 mm[Hg] e Feb 25 22:19:37 EST 5 Systolic Blood Pressure 148.00 mm[Hg] e Feb 25 22:19:37 EST 5 Diastolic Blood Pressure 72.00 mm[Hg] e Feb 25 22:19:37 EST 2025 Heart Rate 85.00 /min e Feb 25 22:19 :37 EST 5 Systolic Blood Pressure 138.00 mm[Hg] e Feb 25 13:24:30 EST 2025 Diastolic Blood Pressure 78.00 mm[Hg] SatAug 25 13:24:30 EST 2024 Systolic Blood Pressure 160.00 mm[Hg] SatAug 25 09:05:55 EST 2024 Diastolic Blood Pressure 78.00 mm[Hg] SatAug 25 09:05:55 EST 2024 Systolic Blood Pressure 160.00 mm[Hg] SatAug 25 09:05:55 EST 2024 Diastolic Blood Pressure 78.00 mm[Hg] SatAug 25 09:05:55 EST 2024 Systolic Blood Pressure 160.00 mm[Hg] SatAug 25 09:05:55 EST 2024 Diastolic Blood Pressure 78.00 mm[Hg] SatAug 25 09:05:55 EST 2024 Systolic Blood Pressure 160.00 mm[Hg] SatAug 25 09:05:55 EST 2024 Diastolic Blood Pressure 78.00 mm[Hg] SatAug 25 09:05:55 EST 2024 Heart Rate 85.00 /min SatAug 25 09:05 :55 EST 2024 Systolic Blood Pressure 160.00 mm[Hg] SatAug 25 07:41:39 EST 2024 Diastolic Blood Pressure 78.00 mm[Hg] SatAug 25 07:41:39 EST 2024 Heart Rate 85.00 /min SatAug 25 07:41 :39 EST 2024 Pulse Oximetry 94.00 % SatAug 25 07:41 :39 EST 2024 Systolic Blood Pressure 152.00 mm[Hg] SatAug 24 22:17:54 EST 2024 Diastolic Blood Pressure 79.00 mm[Hg] SatAug 24 22:17:54 EST 2024 Systolic Blood Pressure 152.00 mm[Hg] SatAug 24 22:17:54 EST 2024 Diastolic Blood Pressure 79.00 mm[Hg] SatAug 24 22:17:54 EST 2024 Systolic Blood Pressure 152.00 mm[Hg] Satb 22:17:54 EST 2024 Diastolic Blood Pressure 79.00 mm[Hg] SatAug 24 22:17:54 EST 2024 Heart Rate 78.00 /min SatAug 24 22:17 :54 EST 2024 Body weight 288.60 [lb_av] SatAug 24 14:45 :40 EST 2024 Systolic Blood Pressure 140.00 mm[Hg] Mon Feb 24 13:04:45 EST 5 Diastolic Blood Pressure 72.00 mm[Hg] Mon Feb 24 13:04:45 EST 5 Systolic Blood Pressure 126.00 mm[Hg] Mon Feb 24 10:08:55 EST 5 Diastolic Blood Pressure 64.00 mm[Hg] Mon Feb 24 10:08:55 EST 5 Systolic Blood Pressure 126.00 mm[Hg] Mon Feb 24 10:08:55 EST 5 Diastolic Blood Pressure 64.00 mm[Hg] Mon Feb 24 10:08:55 EST 5 Systolic Blood Pressure 126.00 mm[Hg] Mon Feb 24 10:08:55 EST 5 Diastolic Blood Pressure 64.00 mm[Hg] Mon Feb 24 10:08:55 EST 2024 Systolic Blood Pressure 126.00 mm[Hg] Mon Feb 24 10:08:55 EST 5 Diastolic Blood Pressure 64.00 mm[Hg] Mon Feb 24 10:08:55 EST 5 Heart Rate 85.00 /min Mon Feb 24 10:08 :55 EST 2024 Systolic Blood Pressure 126.00 mm[Hg] Mon Feb 24 07:53:39 EST 5 Diastolic Blood Pressure 64.00 mm[Hg] Mon Feb 24 07:53:39 EST 5 Heart Rate 85.00 /min Mon Feb 24 07:53 :39 EST 2024 Systolic Blood Pressure 146.00 mm[Hg] Sun Feb 22:11:43 EST 2024 Diastolic Blood Pressure 97.00 mm[Hg] Sun Feb 22:11:43 EST 5 Systolic Blood Pressure 146.00 mm[Hg] Sun Feb 22:11:43 EST 2024 Diastolic Blood Pressure 97.00 mm[Hg] Sun Feb 22:11:43 EST 5 Systolic Blood Pressure 146.00 mm[Hg] Sun Feb 22:11:43 EST 5 Diastolic Blood Pressure 97.00 mm[Hg] Sun Feb 22:11:43 EST 5 Heart Rate 107.00 /min Sun Feb 22:11 :43 EST 5 Systolic Blood Pressure 111.00 mm[Hg] Sun Feb 12:44:42 EST 5 Diastolic Blood Pressure 56.00 mm[Hg] Sun Feb 12:44:42 EST 2025 Systolic Blood Pressure 140.00 mm[Hg] Sun Feb 23 09:18:37 EST 2025 Diastolic Blood Pressure 78.00 mm[Hg] Sun Feb 23 09:18:37 EST 5 Systolic Blood Pressure 140.00 mm[Hg] Sun Feb 09:18:37 EST 5 Diastolic Blood Pressure 78.00 mm[Hg] Sun Feb 09:18:37 EST 5 Systolic Blood Pressure 140.00 mm[Hg] Sun Feb 09:18:37 EST 5 Diastolic Blood Pressure 78.00 mm[Hg] Sun Feb 09:18:37 EST 5 Systolic Blood Pressure 140.00 mm[Hg] Sun Feb 09:18:37 EST 5 Diastolic Blood Pressure 78.00 mm[Hg] Sun Feb 09:18:37 EST 5 Heart Rate 80.00 /min Sun Feb 09:18 :37 EST 5 Systolic Blood Pressure 128.00 mm[Hg] Sun Feb 07:46:56 EST 5 Diastolic Blood Pressure 66.00 mm[Hg] Sun Feb 07:46:56 EST 2024 Pulse Oximetry 95.00 % Sun Feb 07:46 :56 EST 5 Heart Rate 93.00 /min Sun Feb 07:46 :56 EST 5 Systolic Blood Pressure 105.00 mm[Hg] Sat Feb 22 21:40:46 EST 5 Diastolic Blood Pressure 75.00 mm[Hg] Sat Feb 22 21:40:46 EST 5 Systolic Blood Pressure 105.00 mm[Hg] Sat Feb 22 21:40:46 EST 5 Diastolic Blood Pressure 75.00 mm[Hg] Sat Feb 22 21:40:46 EST 5 Systolic Blood Pressure 105.00 mm[Hg] Sat Feb 22 21:40:46 EST 2025 Diastolic Blood Pressure 75.00 mm[Hg] Sat Feb 22 21:40:46 EST 2025 Heart Rate 102.00 /min Sat Feb 22 21:40 :46 EST 5 Systolic Blood Pressure 129.00 mm[Hg] Sat Feb 22 12:50:46 EST 5 Diastolic Blood Pressure 71.00 mm[Hg] Sat Feb 22 12:50:46 EST 5 Systolic Blood Pressure 146.00 mm[Hg] Sat Feb 22 09:31:49 EST 5 Diastolic Blood Pressure 82.00 mm[Hg] Sat Feb 22 09:31:49 EST 2025 Systolic Blood Pressure 146.00 mm[Hg] Sat Feb 22 09:31:49 EST 5 Diastolic Blood Pressure 82.00 mm[Hg] Sat Feb 22 09:31:49 EST 5 Systolic Blood Pressure 146.00 mm[Hg] Sat Feb 22 09:31:49 EST 5 Diastolic Blood Pressure 82.00 mm[Hg] Sat Feb 22 09:31:49 EST 5 Systolic Blood Pressure 146.00 mm[Hg] Sat Feb 22 09:31:49 EST 5 Diastolic Blood Pressure 82.00 mm[Hg] Sat Feb 22 09:31:49 EST 2024 Heart Rate 78.00 /min Sat Feb 22 09:31 :49 EST 2024 Systolic Blood Pressure 147.00 mm[Hg] Sat Feb 22 07:58:19 EST 2024 Diastolic Blood Pressure 78.00 mm[Hg] Sat Feb 22 07:58:19 EST 2024 Heart Rate 92.00 /min Sat Feb 22 07:58 :19 EST 2024 Systolic Blood Pressure 156.00 mm[Hg] Fri Feb 21:54:58 EST 2024 Diastolic Blood Pressure 96.00 mm[Hg] Fri Feb 21:54:58 EST 2024 Systolic Blood Pressure 156.00 mm[Hg] Fri Feb 21:54:58 EST 2024 Diastolic Blood Pressure 96.00 mm[Hg] Fri Feb 21:54:58 EST 2024 Systolic Blood Pressure 156.00 mm[Hg] Fri Feb 21:54:58 EST 5 Diastolic Blood Pressure 96.00 mm[Hg] Sat Feb 21:54:58 EST 2024 Heart Rate 97.00 /min Fri Feb 21:54 :58 EST 2024 Systolic Blood Pressure 161.00 mm[Hg] Sat Feb 13:01:50 EST 2024 Diastolic Blood Pressure 83.00 mm[Hg] Fri Feb 21 13:01:50 EST 2024 Systolic Blood Pressure 130.00 mm[Hg] Sat Feb 10:43:02 EST 2024 Diastolic Blood Pressure 80.00 mm[Hg] Sat Feb 10:43:02 EST 5 Systolic Blood Pressure 130.00 mm[Hg] Sat Feb 10:43:02 EST 2024 Diastolic Blood Pressure 80.00 mm[Hg] Fri Feb 10:43:02 EST 2024 Systolic Blood Pressure 130.00 mm[Hg] Fri Feb 21 10:43:02 EST 2024 Diastolic Blood Pressure 80.00 mm[Hg] Fri Feb 21 10:43:02 EST 2024 Systolic Blood Pressure 130.00 mm[Hg] Fri Feb 21 10:43:02 EST 2024 Diastolic Blood Pressure 80.00 mm[Hg] Fri Feb 21 10:43:02 EST 2024 Heart Rate 86.00 /min Fri Feb 21 10:43 :02 EST 2024 Systolic Blood Pressure 130.00 mm[Hg] Fri Feb 21 08:32:24 EST 2024 Diastolic Blood Pressure 80.00 mm[Hg] Fri Feb 21 08:32:24 EST 2024 Heart Rate 86.00 /min Fri Feb 21 08:32 :24 EST 2024 Systolic Blood Pressure 139.00 mm[Hg] Samantha Feb 20 20:45:40 EST 2024 Diastolic Blood Pressure 78.00 mm[Hg] Samantha Feb 20 20:45:40 EST 2024 Systolic Blood Pressure 139.00 mm[Hg] Samantha Feb 20 20:45:40 EST 2024 Diastolic Blood Pressure 78.00 mm[Hg] Samantha Feb 20 20:45:40 EST 2024 Systolic Blood Pressure 139.00 mm[Hg] Samantha Feb 20 20:45:40 EST 2024 Diastolic Blood Pressure 78.00 mm[Hg] Samantha Feb 20 20:45:40 EST 2024 Heart Rate 72.00 /min Samantha Feb 20 20:45 :40 EST 2024 Systolic Blood Pressure 146.00 mm[Hg] Samantha Feb 20 12:55:45 EST 2024 Diastolic Blood Pressure 84.00 mm[Hg] Samantha Feb 20 12:55:45 EST 2024 Systolic Blood Pressure 142.00 mm[Hg] Samantha Feb 20 10:05:35 EST 2024 Diastolic Blood Pressure 75.00 mm[Hg] Samantha Feb 20 10:05:35 EST 2024 Systolic Blood Pressure 142.00 mm[Hg] Samantha Feb 20 10:05:35 EST 2024 Diastolic Blood Pressure 75.00 mm[Hg] Samantha Feb 20 10:05:35 EST 5 Systolic Blood Pressure 142.00 mm[Hg] Samantha Feb 20 10:05:35 EST 2024 Diastolic Blood Pressure 75.00 mm[Hg] Samantha Feb 20 10:05:35 EST 5 Systolic Blood Pressure 142.00 mm[Hg] Samantha Feb 20 10:05:35 EST 5 Diastolic Blood Pressure 75.00 mm[Hg] Samantha Feb 20 10:05:35 EST 5 Heart Rate 87.00 /min Samantha Feb 20 10:05 :35 EST 5 Systolic Blood Pressure 142.00 mm[Hg] Samantha Feb 20 07:53:11 EST 5 Diastolic Blood Pressure 75.00 mm[Hg] Samantha Feb 20 07:53:11 EST 2024 Pulse Oximetry 88.00 % Samantha Feb 20 07:53 :11 EST 5 Heart Rate 88.00 /min Samantha Feb 20 07:53 :11 EST 2024 Systolic Blood Pressure 164.00 mm[Hg] Samantha Feb 20 07:47:57 EST 5 Diastolic Blood Pressure 94.00 mm[Hg] Samantha Feb 20 07:47:57 EST 5 Heart Rate 64.00 /min Samantha Feb 20 07:47 :57 EST 2024 Pulse Oximetry 96.00 % Samantha Feb 20 07:47 :57 EST 2024 Systolic Blood Pressure 133.00 mm[Hg] Wed Feb 19 20:53:14 EST 5 Diastolic Blood Pressure 78.00 mm[Hg] Wed Feb 19 20:53:14 EST 5 Systolic Blood Pressure 133.00 mm[Hg] Wed Feb 19 20:53:14 EST 5 Diastolic Blood Pressure 78.00 mm[Hg] Wed Feb 19 20:53:14 EST 5 Systolic Blood Pressure 133.00 mm[Hg] Wed Feb 19 20:53:14 EST 5 Diastolic Blood Pressure 78.00 mm[Hg] Wed Feb 19 20:53:14 EST 5 Heart Rate 88.00 /min Wed Feb 19 20:53 :14 EST 5 Systolic Blood Pressure 125.00 mm[Hg] Wed Feb 19 13:13:58 EST 5 Diastolic Blood Pressure 74.00 mm[Hg] Wed Feb 19 13:13:58 EST 5 Systolic Blood Pressure 147.00 mm[Hg] Wed Feb 19 11:41:34 EST 5 Diastolic Blood Pressure 83.00 mm[Hg] Wed Feb 19 11:41:34 EST 5 Heart Rate 69.00 /min Wed Feb 19 11:41 :34 EST 2024 Body temperature 98.00 [degF] Wed Feb 19 11:4 1:34 EST 5 Respiratory rate 20.00 /min Wed Feb 19 11:4 1:34 EST 2024 Pulse Oximetry 93.00 % Wed Feb 19 11:41 :34 EST 5 Systolic Blood Pressure 147.00 mm[Hg] Wed Feb 19 10:07:12 EST 5 Diastolic Blood Pressure 83.00 mm[Hg] Wed Feb 19 10:07:12 EST 5 Systolic Blood Pressure 147.00 mm[Hg] Wed Feb 19 10:07:12 EST 5 Diastolic Blood Pressure 83.00 mm[Hg] Wed Feb 19 10:07:12 EST 5 Systolic Blood Pressure 147.00 mm[Hg] Wed Feb 19 10:07:12 EST 5 Diastolic Blood Pressure 83.00 mm[Hg] Wed Feb 19 10:07:12 EST 5 Systolic Blood Pressure 147.00 mm[Hg] Wed Feb 19 10:07:12 EST 5 Diastolic Blood Pressure 83.00 mm[Hg] Wed Feb 19 10:07:12 EST 5 Heart Rate 69.00 /min Wed Feb 19 10:07 :12 EST 5 Systolic Blood Pressure 134.00 mm[Hg] e Feb 18 19:37:50 EST 5 Diastolic Blood Pressure 75.00 mm[Hg] e Feb 18 19:37:50 EST 5 Systolic Blood Pressure 134.00 mm[Hg] e Feb 18 19:37:50 EST 5 Diastolic Blood Pressure 75.00 mm[Hg] e Feb 18 19:37:50 EST 5 Systolic Blood Pressure 134.00 mm[Hg] e Feb 18 19:37:50 EST 5 Diastolic Blood Pressure 75.00 mm[Hg] e Feb 18 19:37:50 EST 5 Heart Rate 87.00 /min e Feb 18 19:37 :50 EST 2024 Body weight 288.40 [lb_av] e Feb 18 16:30 :00 EST 5 Systolic Blood Pressure 111.00 mm[Hg] e Feb 18 13:01:35 EST 5 Diastolic Blood Pressure 75.00 mm[Hg] e Feb 18 13:01:35 EST 5 Systolic Blood Pressure 135.00 mm[Hg] e Feb 18 10:04:01 EST 2024 Diastolic Blood Pressure 83.00 mm[Hg] e Feb 18 10:04:01 EST 2024 Systolic Blood Pressure 135.00 mm[Hg] e Feb 18 10:04:01 EST 2024 Diastolic Blood Pressure 83.00 mm[Hg] e Feb 18 10:04:01 EST 2024 Systolic Blood Pressure 135.00 mm[Hg] e Feb 18 10:04:01 EST 2024 Diastolic Blood Pressure 83.00 mm[Hg] e Feb 18 10:04:01 EST 2024 Systolic Blood Pressure 135.00 mm[Hg] e Feb 18 10:04:01 EST 2024 Diastolic Blood Pressure 83.00 mm[Hg] e Feb 18 10:04:01 EST 2024 Heart Rate 83.00 /min e Feb 18 10:04 :01 EST 2024 Systolic Blood Pressure 135.00 mm[Hg] e Feb 18 09:01:30 EST 2024 Diastolic Blood Pressure 83.00 mm[Hg] Sat Feb 18 09:01:30 EST 2024 Heart Rate 83.00 /min Sat Feb 18 09:01 :30 EST 2024 Systolic Blood Pressure 128.00 mm[Hg] Mon Feb 17 20:32:54 EST 2024 Diastolic Blood Pressure 71.00 mm[Hg] Sat Feb 17 20:32:54 EST 2024 Systolic Blood Pressure 128.00 mm[Hg] Sat Feb 17 20:32:54 EST 2024 Diastolic Blood Pressure 71.00 mm[Hg] Mon Feb 17 20:32:54 EST 2024 Systolic Blood Pressure 128.00 mm[Hg] Mon Feb 17 20:32:54 EST 2024 Diastolic Blood Pressure 71.00 mm[Hg] Mon Feb 17 20:32:54 EST 2024 Heart Rate 82.00 /min Mon Feb 17 20:32 :54 EST 2024 Systolic Blood Pressure 123.00 mm[Hg] Mon Feb 17 12:54:06 EST 2024 Diastolic Blood Pressure 73.00 mm[Hg] Mon Feb 17 12:54:06 EST 2024 Systolic Blood Pressure 145.00 mm[Hg] Mon Feb 17 09:41:43 EST 2024 Diastolic Blood Pressure 68.00 mm[Hg] Mon Feb 17 09:41:43 EST 2024 Systolic Blood Pressure 145.00 mm[Hg] Mon Feb 17 09:41:43 EST 2024 Diastolic Blood Pressure 68.00 mm[Hg] Sat Feb 17 09:41:43 EST 2024 Systolic Blood Pressure 145.00 mm[Hg] Satb 17 09:41:43 EST 2024 Diastolic Blood Pressure 68.00 mm[Hg] Satb 17 09:41:43 EST 2024 Systolic Blood Pressure 145.00 mm[Hg] [facility] b 17 09:41:43 EST 2024 Diastolic Blood Pressure 68.00 mm[Hg] [facility] b 17 09:41:43 EST 2024 Heart Rate 82.00 /min Satb 17 09:41 :43 EST 2024 Systolic Blood Pressure 145.00 mm[Hg] [facility] b 17 09:00:37 EST 2024 Diastolic Blood Pressure 68.00 mm[Hg] [facility] b 17 09:00:37 EST 2024 Heart Rate 82.00 /min [facility] Feb 17 09:00 :37 EST 2024 Pulse Oximetry 95.00 % [facility] b 17 09:00 :37 EST 2024 Systolic Blood Pressure 141.00 mm[Hg] Sun Feb 16 22:22:55 EST 2024 Diastolic Blood Pressure 85.00 mm[Hg] Sun Feb 16 22:22:55 EST 2024 Systolic Blood Pressure 141.00 mm[Hg] Sun Feb 16 22:22:55 EST 2024 Diastolic Blood Pressure 85.00 mm[Hg] Sun Feb 16 22:22:55 EST 2024 Systolic Blood Pressure 141.00 mm[Hg] Sun Feb 16 22:22:55 EST 2024 Diastolic Blood Pressure 85.00 mm[Hg] Sun Feb 16 22:22:55 EST 2024 Heart Rate 95.00 /min Sun Feb 16 22:22 :55 EST 2024 Systolic Blood Pressure 135.00 mm[Hg] Sun Feb 16 13:20:37 EST 2024 Diastolic Blood Pressure 78.00 mm[Hg] Sun Feb 16 13:20:37 EST 2024 Systolic Blood Pressure 123.00 mm[Hg] Sun Feb 16 09:54:36 EST 5 Diastolic Blood Pressure 77.00 mm[Hg] Sun Feb 16 09:54:36 EST 2024 Systolic Blood Pressure 123.00 mm[Hg] Sun Feb 16 09:54:36 EST 2024 Diastolic Blood Pressure 77.00 mm[Hg] Sun Feb 16 09:54:36 EST 2024 Systolic Blood Pressure 123.00 mm[Hg] Sun Feb 16 09:54:36 EST 2024 Diastolic Blood Pressure 77.00 mm[Hg] Sun Feb 16 09:54:36 EST 5 Systolic Blood Pressure 123.00 mm[Hg] Sun Feb 16 09:54:36 EST 5 Diastolic Blood Pressure 77.00 mm[Hg] Sun Feb 16 09:54:36 EST 2024 Heart Rate 84.00 /min Sun Feb 16 09:54 :36 EST 2024 Systolic Blood Pressure 123.00 mm[Hg] Sun Feb 16 08:31:28 EST 2024 Diastolic Blood Pressure 77.00 mm[Hg] Sun Feb 16 08:31:28 EST 2024 Heart Rate 84.00 /min Sun Feb 16 08:31 :28 EST 2024 Systolic Blood Pressure 142.00 mm[Hg] Sat Feb 15 20:55:43 EST 2024 Diastolic Blood Pressure 78.00 mm[Hg] Sat Feb 15 20:55:43 EST 2024 Systolic Blood Pressure 142.00 mm[Hg] Sat Feb 15 20:55:43 EST 5 Diastolic Blood Pressure 78.00 mm[Hg] Sat Feb 15 20:55:43 EST 5 Systolic Blood Pressure 142.00 mm[Hg] Sat Feb 15 20:55:43 EST 5 Diastolic Blood Pressure 78.00 mm[Hg] Sat Feb 15 20:55:43 EST 5 Heart Rate 62.00 /min Sat Feb 15 20:55 :43 EST 2024 Systolic Blood Pressure 130.00 mm[Hg] Sat Feb 15 12:57:22 EST 5 Diastolic Blood Pressure 70.00 mm[Hg] Sat Feb 15 12:57:22 EST 5 Systolic Blood Pressure 158.00 mm[Hg] Sat Feb 15 10:27:09 EST 5 Diastolic Blood Pressure 82.00 mm[Hg] Sat Feb 15 10:27:09 EST 5 Systolic Blood Pressure 158.00 mm[Hg] Sat Feb 15 10:27:09 EST 5 Diastolic Blood Pressure 82.00 mm[Hg] Sat Feb 15 10:27:09 EST 5 Systolic Blood Pressure 158.00 mm[Hg] Sat Feb 15 10:27:09 EST 5 Diastolic Blood Pressure 82.00 mm[Hg] Sat Feb 15 10:27:09 EST 2024 Systolic Blood Pressure 158.00 mm[Hg] Sat Feb 15 10:27:09 EST 5 Diastolic Blood Pressure 82.00 mm[Hg] Sat Feb 15 10:27:09 EST 5 Heart Rate 82.00 /min Sat Feb 15 10:27 :09 EST 5 Systolic Blood Pressure 158.00 mm[Hg] Sat Feb 15 09:53:10 EST 2024 Diastolic Blood Pressure 82.00 mm[Hg] Sat Feb 15 09:53:10 EST 2024 Pulse Oximetry 93.00 % Sat Feb 15 09:53 :10 EST 2024 Heart Rate 82.00 /min Sat Feb 15 09:53 :10 EST 2024 Systolic Blood Pressure 141.00 mm[Hg] Fri Feb 14 20:59:54 EST 2024 Diastolic Blood Pressure 89.00 mm[Hg] Fri Feb 14 20:59:54 EST 2024 Systolic Blood Pressure 141.00 mm[Hg] Fri Feb 14 20:59:54 EST 2024 Diastolic Blood Pressure 89.00 mm[Hg] Fri Feb 14 20:59:54 EST 5 Systolic Blood Pressure 141.00 mm[Hg] Fri Feb 14 20:59:54 EST 5 Diastolic Blood Pressure 89.00 mm[Hg] Fri Feb 14 20:59:54 EST 2024 Heart Rate 96.00 /min Fri Feb 14 20:59 :54 EST 2024 Systolic Blood Pressure 159.00 mm[Hg] Fri Feb 14 13:23:51 EST 5 Diastolic Blood Pressure 93.00 mm[Hg] Fri Feb 14 13:23:51 EST 2024 Systolic Blood Pressure 106.00 mm[Hg] Fri Feb 14 09:38:25 EST 5 Diastolic Blood Pressure 67.00 mm[Hg] Fri Feb 14 09:38:25 EST 5 Systolic Blood Pressure 106.00 mm[Hg] Fri Feb 14 09:38:25 EST 5 Diastolic Blood Pressure 67.00 mm[Hg] Fri Feb 14 09:38:25 EST 5 Systolic Blood Pressure 106.00 mm[Hg] Fri Feb 14 09:38:25 EST 5 Diastolic Blood Pressure 67.00 mm[Hg] Fri Feb 14 09:38:25 EST 5 Systolic Blood Pressure 106.00 mm[Hg] Fri Feb 14 09:38:25 EST 2025 Diastolic Blood Pressure 67.00 mm[Hg] Fri Feb 14 09:38:25 EST 2024 Heart Rate 72.00 /min Fri Feb 14 09:38 :25 EST 2024 Systolic Blood Pressure 106.00 mm[Hg] Fri Feb 14 07:58:02 EST 2024 Diastolic Blood Pressure 67.00 mm[Hg] Fri Feb 14 07:58:02 EST 2024 Heart Rate 72.00 /min Fri Feb 14 07:58 :02 EST 2024 Pulse Oximetry 93.00 % Fri Feb 14 07:58 :02 EST 2024 Systolic Blood Pressure 134.00 mm[Hg] Samantha Feb 13 21:03:21 EST 2024 Diastolic Blood Pressure 72.00 mm[Hg] Samantha Feb 13 21:03:21 EST 2024 Systolic Blood Pressure 134.00 mm[Hg] Samantha Feb 13 21:03:21 EST 2024 Diastolic Blood Pressure 72.00 mm[Hg] Samantha Feb 13 21:03:21 EST 2024 Systolic Blood Pressure 134.00 mm[Hg] Samantha Feb 13 21:03:21 EST 2024 Diastolic Blood Pressure 72.00 mm[Hg] Samantha Feb 13 21:03:21 EST 2024 Heart Rate 78.00 /min Samantha Feb 13 21:03 :21 EST 2024 Systolic Blood Pressure 146.00 mm[Hg] Samantha Feb 13 13:30:26 EST 5 Diastolic Blood Pressure 82.00 mm[Hg] Samantha Feb 13 13:30:26 EST 5 Systolic Blood Pressure 130.00 mm[Hg] Samantha Feb 13 10:15:50 EST 5 Diastolic Blood Pressure 70.00 mm[Hg] Samantha Feb 13 10:15:50 EST 5 Systolic Blood Pressure 130.00 mm[Hg] Samantha Feb 13 10:15:50 EST 5 Diastolic Blood Pressure 70.00 mm[Hg] Saamntha Feb 13 10:15:50 EST 5 Systolic Blood Pressure 130.00 mm[Hg] Samantha Feb 13 10:15:50 EST 5 Diastolic Blood Pressure 70.00 mm[Hg] Samantha Feb 13 10:15:50 EST 5 Systolic Blood Pressure 130.00 mm[Hg] Samantha Feb 13 10:15:50 EST 5 Diastolic Blood Pressure 70.00 mm[Hg] Samantha Feb 13 10:15:50 EST 5 Heart Rate 83.00 /min Samantha Feb 13 10:15 :50 EST 5 Systolic Blood Pressure 152.00 mm[Hg] Wed Feb 12 20:29:30 EST 5 Diastolic Blood Pressure 78.00 mm[Hg] Wed Feb 12 20:29:30 EST 5 Systolic Blood Pressure 152.00 mm[Hg] Wed Feb 12 20:29:30 EST 5 Diastolic Blood Pressure 78.00 mm[Hg] Wed Feb 12 20:29:30 EST 5 Systolic Blood Pressure 152.00 mm[Hg] Wed Feb 12 20:29:30 EST 5 Diastolic Blood Pressure 78.00 mm[Hg] Wed Feb 12 20:29:30 EST 5 Heart Rate 86.00 /min Wed Feb 12 20:29 :30 EST 5 Systolic Blood Pressure 139.00 mm[Hg] Wed Feb 12 19:02:08 EST 5 Diastolic Blood Pressure 93.00 mm[Hg] Wed Feb 12 19:02:08 EST 5 Heart Rate 93.00 /min Wed Feb 12 19:02 :08 EST 2024 Pulse Oximetry 98.00 % Wed Feb 12 19:02 :08 EST 5 Respiratory rate 18.00 /min Wed Feb 12 19:0 2:08 EST 2024 Body temperature 97.30 [degF] Wed Feb 12 19:0 2:08 EST 5 Systolic Blood Pressure 166.00 mm[Hg] Wed Feb 12 13:23:12 EST 5 Diastolic Blood Pressure 86.00 mm[Hg] Wed Feb 12 13:23:12 EST 5 Systolic Blood Pressure 139.00 mm[Hg] Wed Feb 12 11:03:23 EST 5 Diastolic Blood Pressure 93.00 mm[Hg] Wed Feb 12 11:03:23 EST 5 Systolic Blood Pressure 139.00 mm[Hg] Wed Feb 12 11:03:23 EST 5 Diastolic Blood Pressure 93.00 mm[Hg] Wed Feb 12 11:03:23 EST 5 Systolic Blood Pressure 139.00 mm[Hg] Wed Feb 12 11:03:23 EST 5 Diastolic Blood Pressure 93.00 mm[Hg] Wed Feb 12 11:03:23 EST 5 Systolic Blood Pressure 139.00 mm[Hg] Wed Feb 12 11:03:23 EST 5 Diastolic Blood Pressure 93.00 mm[Hg] SatAug 12 11:03:23 EST 5 Heart Rate 93.00 /min SatAug 12 11:03 :23 EST 5 Systolic Blood Pressure 145.00 mm[Hg] Satb 20:43:44 EST 5 Diastolic Blood Pressure 72.00 mm[Hg] Satb 20:43:44 EST 5 Systolic Blood Pressure 145.00 mm[Hg] SatAug 11 20:43:44 EST 5 Diastolic Blood Pressure 72.00 mm[Hg] Satb 20:43:44 EST 5 Systolic Blood Pressure 145.00 mm[Hg] Satb 20:43:44 EST 5 Diastolic Blood Pressure 72.00 mm[Hg] Satb 20:43:44 EST 5 Heart Rate 75.00 /min SatAug 11 20:43 :44 EST 5 Systolic Blood Pressure 132.00 mm[Hg] SatAug 11 13:36:27 EST 5 Diastolic Blood Pressure 79.00 mm[Hg] SatAug 11 13:36:27 EST 5 Systolic Blood Pressure 128.00 mm[Hg] SatAug 11 10:41:54 EST 5 Diastolic Blood Pressure 73.00 mm[Hg] SatAug 11 10:41:54 EST 5 Systolic Blood Pressure 128.00 mm[Hg] SatAug 11 10:41:54 EST 5 Diastolic Blood Pressure 73.00 mm[Hg] Satb 10:41:54 EST 2025 Systolic Blood Pressure 128.00 mm[Hg] SatAug 11 10:41:54 EST 2025 Diastolic Blood Pressure 73.00 mm[Hg] Satb 10:41:54 EST 2025 Systolic Blood Pressure 128.00 mm[Hg] Satb 10:41:54 EST 2025 Diastolic Blood Pressure 73.00 mm[Hg] Satb 10:41:54 EST 2025 Heart Rate 91.00 /min SatAug 11 10:41 :54 EST 2025 Systolic Blood Pressure 128.00 mm[Hg] Satb 07:58:35 EST 2025 Diastolic Blood Pressure 73.00 mm[Hg] Satb 07:58:35 EST 2025 Heart Rate 91.00 /min SatAug 11 07:58 :35 EST 2024 Pulse Oximetry 91.00 % SatAug 11 07:58 :35 EST 2024 Systolic Blood Pressure 155.00 mm[Hg] SatAug 11 00:13:59 EST 2024 Diastolic Blood Pressure 77.00 mm[Hg] SatAug 11 00:13:59 EST 2024 Systolic Blood Pressure 155.00 mm[Hg] SatAug 11 00:13:59 EST 2024 Diastolic Blood Pressure 77.00 mm[Hg] SatAug 11 00:13:59 EST 2024 Systolic Blood Pressure 155.00 mm[Hg] SatAug 11 00:13:59 EST 2024 Diastolic Blood Pressure 77.00 mm[Hg] SatAug 11 00:13:59 EST 2024 Heart Rate 96.00 /min SatAug 11 00:13 :59 EST 2024 Body weight 294.80 [lb_av] Satb 10 17:52 :19 EST 2024 Systolic Blood Pressure 149.00 mm[Hg] Sat Feb 10 12:55:39 EST 2024 Diastolic Blood Pressure 85.00 mm[Hg] Sat Feb 10 12:55:39 EST 5 Systolic Blood Pressure 155.00 mm[Hg] Mon Feb 10 09:55:40 EST 2024 Diastolic Blood Pressure 78.00 mm[Hg] Sat Feb 10 09:55:40 EST 5 Systolic Blood Pressure 155.00 mm[Hg] Mon Feb 10 09:55:40 EST 5 Diastolic Blood Pressure 78.00 mm[Hg] Mon Feb 10 09:55:40 EST 5 Systolic Blood Pressure 155.00 mm[Hg] Mon Feb 10 09:55:40 EST 5 Diastolic Blood Pressure 78.00 mm[Hg] Mon Feb 10 09:55:40 EST 5 Systolic Blood Pressure 155.00 mm[Hg] Mon Feb 10 09:55:40 EST 5 Diastolic Blood Pressure 78.00 mm[Hg] Sat Feb 10 09:55:40 EST 5 Heart Rate 89.00 /min Sat Feb 10 09:55 :40 EST 5 Systolic Blood Pressure 155.00 mm[Hg] Mon Feb 10 07:59:00 EST 5 Diastolic Blood Pressure 78.00 mm[Hg] Sat Feb 10 07:59:00 EST 2025 Heart Rate 89.00 /min Satb 07:59 :00 EST 2024 Pulse Oximetry 92.00 % Satb 07:59 :00 EST 5 Systolic Blood Pressure 138.00 mm[Hg] Sun Feb 20:26:41 EST 2024 Diastolic Blood Pressure 81.00 mm[Hg] Sun Feb 20:26:41 EST 2024 Systolic Blood Pressure 138.00 mm[Hg] Sun Feb 20:26:41 EST 5 Diastolic Blood Pressure 81.00 mm[Hg] Sun Feb 20:26:41 EST 2024 Systolic Blood Pressure 138.00 mm[Hg] Sun Feb 20:26:41 EST 2024 Diastolic Blood Pressure 81.00 mm[Hg] Sun Feb 20:26:41 EST 2024 Heart Rate 93.00 /min Sun b 20:26 :41 EST 5 Systolic Blood Pressure 142.00 mm[Hg] Sun Feb 13:24:34 EST 2024 Diastolic Blood Pressure 75.00 mm[Hg] Sun Feb 13:24:34 EST 5 Systolic Blood Pressure 146.00 mm[Hg] Sun Feb 09:47:48 EST 2025 Diastolic Blood Pressure 84.00 mm[Hg] Sun Feb 09:47:48 EST 5 Systolic Blood Pressure 146.00 mm[Hg] Sun Feb 09:47:48 EST 5 Diastolic Blood Pressure 84.00 mm[Hg] Sun Feb 09:47:48 EST 2025 Systolic Blood Pressure 146.00 mm[Hg] Sun Feb 09:47:48 EST 2025 Diastolic Blood Pressure 84.00 mm[Hg] Sun Feb 09:47:48 EST 2025 Systolic Blood Pressure 146.00 mm[Hg] Sun Feb 09:47:48 EST 2025 Diastolic Blood Pressure 84.00 mm[Hg] Sun Feb 09:47:48 EST 5 Heart Rate 88.00 /min Sun Feb 09:47 :48 EST 2024 Systolic Blood Pressure 146.00 mm[Hg] Sun Feb 07:49:36 EST 2025 Diastolic Blood Pressure 84.00 mm[Hg] Sun Feb 07:49:36 EST 5 Pulse Oximetry 94.00 % Sun Feb 07:49 :36 EST 5 Heart Rate 88.00 /min Sun Feb 09 07:49 :36 EST 2024 Systolic Blood Pressure 100.00 mm[Hg] Sat Feb 08 20:59:21 EST 2024 Diastolic Blood Pressure 74.00 mm[Hg] Sat Feb 08 20:59:21 EST 5 Systolic Blood Pressure 100.00 mm[Hg] Sat Feb 08 20:59:21 EST 2024 Diastolic Blood Pressure 74.00 mm[Hg] Sat Feb 08 20:59:21 EST 2024 Systolic Blood Pressure 100.00 mm[Hg] Sat Feb 08 20:59:21 EST 2024 Diastolic Blood Pressure 74.00 mm[Hg] Sat Feb 08 20:59:21 EST 2024 Heart Rate 119.00 /min Sat Feb 08 20:59 :21 EST 2024 Systolic Blood Pressure 127.00 mm[Hg] Sat Feb 08 13:52:22 EST 2024 Diastolic Blood Pressure 70.00 mm[Hg] Sat Feb 08 13:52:22 EST 2024 Systolic Blood Pressure 124.00 mm[Hg] Sat Feb 08 10:36:26 EST 2024 Diastolic Blood Pressure 86.00 mm[Hg] Sat Feb 08 10:36:26 EST 2024 Systolic Blood Pressure 124.00 mm[Hg] Sat Feb 08 10:36:26 EST 2024 Diastolic Blood Pressure 86.00 mm[Hg] Sat Feb 08 10:36:26 EST 2024 Systolic Blood Pressure 124.00 mm[Hg] Sat Feb 08 10:36:26 EST 2024 Diastolic Blood Pressure 86.00 mm[Hg] Sat Feb 08 10:36:26 EST 2024 Systolic Blood Pressure 124.00 mm[Hg] Sat Feb 08 10:36:26 EST 2024 Diastolic Blood Pressure 86.00 mm[Hg] Sat Feb 08 10:36:26 EST 2024 Heart Rate 71.00 /min Sat Feb 08 10:36 :26 EST 2024 Systolic Blood Pressure 142.00 mm[Hg] Fri Feb 07 21:04:51 EST 2024 Diastolic Blood Pressure 83.00 mm[Hg] Fri Feb 07 21:04:51 EST 5 Systolic Blood Pressure 142.00 mm[Hg] Fri Feb 07 21:04:51 EST 2024 Diastolic Blood Pressure 83.00 mm[Hg] Sat Feb 07 21:04:51 EST 5 Systolic Blood Pressure 142.00 mm[Hg] Fri Feb 07 21:04:51 EST 2024 Diastolic Blood Pressure 83.00 mm[Hg] Fri Feb 07 21:04:51 EST 5 Heart Rate 86.00 /min Sat Feb 07 21:04 :51 EST 5 Systolic Blood Pressure 142.00 mm[Hg] Fri Feb 07 13:02:14 EST 5 Diastolic Blood Pressure 88.00 mm[Hg] Fri Feb 07 13:02:14 EST 5 Systolic Blood Pressure 158.00 mm[Hg] Fri Feb 07 10:28:45 EST 5 Diastolic Blood Pressure 69.00 mm[Hg] Fri Feb 07 10:28:45 EST 5 Systolic Blood Pressure 158.00 mm[Hg] Sat Feb 07 10:28:45 EST 5 Diastolic Blood Pressure 69.00 mm[Hg] Sat Feb 07 10:28:45 EST 5 Systolic Blood Pressure 158.00 mm[Hg] Sat Feb 07 10:28:45 EST 5 Diastolic Blood Pressure 69.00 mm[Hg] Sat Feb 07 10:28:45 EST 5 Systolic Blood Pressure 158.00 mm[Hg] Sat Feb 07 10:28:45 EST 5 Diastolic Blood Pressure 69.00 mm[Hg] Sat Feb 07 10:28:45 EST 2024 Heart Rate 82.00 /min Sat Feb 07 10:28 :45 EST 2024 Systolic Blood Pressure 158.00 mm[Hg] Sat Feb 07 08:11:57 EST 5 Diastolic Blood Pressure 69.00 mm[Hg] Sat Feb 07 08:11:57 EST 2024 Heart Rate 82.00 /min Sat Feb 07 08:11 :57 EST 5 Systolic Blood Pressure 126.00 mm[Hg] Samantha Feb 06 21:06:32 EST 5 Diastolic Blood Pressure 77.00 mm[Hg] Samantha Feb 06 21:06:32 EST 5 Systolic Blood Pressure 126.00 mm[Hg] Samantha Feb 06 21:06:32 EST 5 Diastolic Blood Pressure 77.00 mm[Hg] Samantha Feb 06 21:06:32 EST 5 Systolic Blood Pressure 126.00 mm[Hg] Samantha Feb 06 21:06:32 EST 5 Diastolic Blood Pressure 77.00 mm[Hg] Samantha Feb 06 21:06:32 EST 5 Heart Rate 72.00 /min Samantha Feb 06 21:06 :32 EST 2024 Systolic Blood Pressure 131.00 mm[Hg] Samantha Feb 06 12:58:54 EST 2024 Diastolic Blood Pressure 82.00 mm[Hg] Samantha Feb 06 12:58:54 EST 2024 Systolic Blood Pressure 151.00 mm[Hg] Samantha Feb 06 09:39:55 EST 2024 Diastolic Blood Pressure 79.00 mm[Hg] Samantha Feb 06 09:39:55 EST 2024 Systolic Blood Pressure 151.00 mm[Hg] Samantha Feb 06 09:39:55 EST 2024 Diastolic Blood Pressure 79.00 mm[Hg] Samantha Feb 06 09:39:55 EST 2024 Systolic Blood Pressure 151.00 mm[Hg] Samantha Feb 06 09:39:55 EST 2024 Diastolic Blood Pressure 79.00 mm[Hg] Samantha Feb 06 09:39:55 EST 2024 Systolic Blood Pressure 151.00 mm[Hg] Samantha Feb 06 09:39:55 EST 2024 Diastolic Blood Pressure 79.00 mm[Hg] Samantha Feb 06 09:39:55 EST 2024 Heart Rate 86.00 /min Samantha Feb 06 09:39 :55 EST 2024 Systolic Blood Pressure 151.00 mm[Hg] Samantha Feb 06 07:41:11 EST 2024 Diastolic Blood Pressure 79.00 mm[Hg] Samantha Feb 06 07:41:11 EST 2024 Pulse Oximetry 93.00 % Samantha Feb 06 07:41 :11 EST 2024 Heart Rate 86.00 /min Samantha Feb 06 07:41 :11 EST 2024 Systolic Blood Pressure 132.00 mm[Hg] Wed Feb 05 20:53:12 EST 2024 Diastolic Blood Pressure 74.00 mm[Hg] Wed Feb 05 20:53:12 EST 2024 Systolic Blood Pressure 132.00 mm[Hg] Wed Feb 05 20:53:12 EST 2024 Diastolic Blood Pressure 74.00 mm[Hg] Wed Feb 05 20:53:12 EST 2024 Systolic Blood Pressure 132.00 mm[Hg] Wed Feb 05 20:53:12 EST 2024 Diastolic Blood Pressure 74.00 mm[Hg] Wed Feb 05 20:53:12 EST 2024 Heart Rate 72.00 /min Wed Feb 05 20:53 :12 EST 2024 Systolic Blood Pressure 123.00 mm[Hg] Sat Feb 05 15:02:16 EST 2024 Diastolic Blood Pressure 68.00 mm[Hg] Sat Feb 05 15:02:16 EST 2024 Heart Rate 81.00 /min Sat Feb 05 15:02 :16 EST 2024 Pulse Oximetry 96.00 % Sat Feb 05 15:02 :16 EST 2024 Respiratory rate 18.00 /min Sat Feb 05 15:0 2:16 EST 2024 Body temperature 97.40 [degF] Sat Feb 05 15:0 2:16 EST 2024 Systolic Blood Pressure 141.00 mm[Hg] Sat Feb 05 14:17:47 EST 2024 Diastolic Blood Pressure 88.00 mm[Hg] Sat Feb 05 14:17:47 EST 2024 Systolic Blood Pressure 135.00 mm[Hg] Sat Feb 05 11:10:05 EST 2024 Diastolic Blood Pressure 88.00 mm[Hg] Sat Feb 05 11:10:05 EST 2024 Systolic Blood Pressure 135.00 mm[Hg] Sat Feb 05 11:10:05 EST 2024 Diastolic Blood Pressure 88.00 mm[Hg] Sat Feb 05 11:10:05 EST 2024 Systolic Blood Pressure 135.00 mm[Hg] Sat Feb 05 11:10:05 EST 2024 Diastolic Blood Pressure 88.00 mm[Hg] Sat Feb 05 11:10:05 EST 2024 Systolic Blood Pressure 135.00 mm[Hg] Sat Feb 05 11:10:05 EST 2024 Diastolic Blood Pressure 88.00 mm[Hg] Sat Feb 05 11:10:05 EST 2024 Heart Rate 100.00 /min Satb 11:10 :05 EST 2024 Systolic Blood Pressure 143.00 mm[Hg] Satb 04 21:25:43 EST 2024 Diastolic Blood Pressure 90.00 mm[Hg] Satb 04 21:25:43 EST 2024 Systolic Blood Pressure 143.00 mm[Hg] Satb 04 21:25:43 EST 2024 Diastolic Blood Pressure 90.00 mm[Hg] Satb 04 21:25:43 EST 2024 Systolic Blood Pressure 143.00 mm[Hg] Satb 04 21:25:43 EST 2024 Diastolic Blood Pressure 90.00 mm[Hg] Satb 04 21:25:43 EST 2024 Heart Rate 104.00 /min SatAug 04 21:25 :43 EST 2024 Systolic Blood Pressure 113.00 mm[Hg] SatAug 04 13:10:07 EST 2024 Diastolic Blood Pressure 59.00 mm[Hg] SatAug 04 13:10:07 EST 2024 Systolic Blood Pressure 134.00 mm[Hg] Sat 04 10:36:36 EST 2024 Diastolic Blood Pressure 74.00 mm[Hg] Sat 04 10:36:36 EST 2024 Systolic Blood Pressure 134.00 mm[Hg] Sat 04 10:36:36 EST 2024 Diastolic Blood Pressure 74.00 mm[Hg] Sat 04 10:36:36 EST 2024 Systolic Blood Pressure 134.00 mm[Hg] Sat 04 10:36:36 EST 2024 Diastolic Blood Pressure 74.00 mm[Hg] SatAug 04 10:36:36 EST 2024 Systolic Blood Pressure 134.00 mm[Hg] SatAug 04 10:36:36 EST 2024 Diastolic Blood Pressure 74.00 mm[Hg] SatAug 04 10:36:36 EST 2024 Heart Rate 82.00 /min SatAug 04 10:36 :36 EST 2024 Systolic Blood Pressure 140.00 mm[Hg] SatAug 03 22:11:56 EST 2024 Diastolic Blood Pressure 84.00 mm[Hg] SatAug 03 22:11:56 EST 2024 Systolic Blood Pressure 140.00 mm[Hg] SatAug 03 22:11:56 EST 2024 Diastolic Blood Pressure 84.00 mm[Hg] SatAug 03 22:11:56 EST 2024 Systolic Blood Pressure 140.00 mm[Hg] SatAug 03 22:11:56 EST 2024 Diastolic Blood Pressure 84.00 mm[Hg] SatAug 03 22:11:56 EST 2024 Heart Rate 105.00 /min SatAug 03 22:11 :56 EST 2024 Body weight 277.80 [lb_av] SatAug 03 17:25 :10 EST 2024 Systolic Blood Pressure 138.00 mm[Hg] SatAug 03 13:50:56 EST 2024 Diastolic Blood Pressure 76.00 mm[Hg] SatAug 03 13:50:56 EST 2024 Systolic Blood Pressure 137.00 mm[Hg] SatAug 03 11:01:36 EST 2024 Diastolic Blood Pressure 71.00 mm[Hg] Satb 11:01:36 EST 2024 Systolic Blood Pressure 137.00 mm[Hg] Satb 11:01:36 EST 2024 Diastolic Blood Pressure 71.00 mm[Hg] Satb 11:01:36 EST 2024 Systolic Blood Pressure 137.00 mm[Hg] Satb 11:01:36 EST 2024 Diastolic Blood Pressure 71.00 mm[Hg] Satb 11:01:36 EST 2024 Systolic Blood Pressure 137.00 mm[Hg] Satb 11:01:36 EST 2024 Diastolic Blood Pressure 71.00 mm[Hg] Satb 11:01:36 EST 2024 Heart Rate 69.00 /min Satb 11:01 :36 EST 2024 Systolic Blood Pressure 132.00 mm[Hg] Satb 00:51:38 EST 2024 Diastolic Blood Pressure 75.00 mm[Hg] [facility] b 00:51:38 EST 2024 Systolic Blood Pressure 132.00 mm[Hg] Satb 00:51:38 EST 2024 Diastolic Blood Pressure 75.00 mm[Hg] Satb 00:51:38 EST 2024 Systolic Blood Pressure 132.00 mm[Hg] Satb 00:51:38 EST 2024 Diastolic Blood Pressure 75.00 mm[Hg] Satb 00:51:38 EST 2024 Heart Rate 79.00 /min [facility] b 00:51 :38 EST 2024 Systolic Blood Pressure 137.00 mm[Hg] Sun Aug 02 12:58:31 EST 2024 Diastolic Blood Pressure 74.00 mm[Hg] Sun b 12:58:31 EST 2024 Systolic Blood Pressure 163.00 mm[Hg] Sun b 09:45:01 EST 2024 Diastolic Blood Pressure 92.00 mm[Hg] Sun b 09:45:01 EST 2024 Systolic Blood Pressure 163.00 mm[Hg] Sun b 09:45:01 EST 2024 Diastolic Blood Pressure 92.00 mm[Hg] Sun Feb 09:45:01 EST 2024 Systolic Blood Pressure 163.00 mm[Hg] Sun b 09:45:01 EST 2024 Diastolic Blood Pressure 92.00 mm[Hg] Sun b 09:45:01 EST 2024 Systolic Blood Pressure 163.00 mm[Hg] Sun Feb 02 09:45:01 EST 2024 Diastolic Blood Pressure 92.00 mm[Hg] Sun Feb 02 09:45:01 EST 2024 Heart Rate 88.00 /min Sun Feb 02 09:45 :01 EST 2024 Systolic Blood Pressure 163.00 mm[Hg] Sun Feb 02 09:35:20 EST 2024 Diastolic Blood Pressure 92.00 mm[Hg] Sun Feb 02 09:35:20 EST 2024 Heart Rate 88.00 /min Sun Feb 02 09:35 :20 EST 2024 Systolic Blood Pressure 137.00 mm[Hg] Sat Feb 01 23:03:57 EST 2024 Diastolic Blood Pressure 75.00 mm[Hg] Sat Feb 01 23:03:57 EST 2024 Systolic Blood Pressure 137.00 mm[Hg] Sat Feb 01 23:03:57 EST 2024 Diastolic Blood Pressure 75.00 mm[Hg] Sat Feb 01 23:03:57 EST 2024 Systolic Blood Pressure 137.00 mm[Hg] Sat Feb 01 23:03:57 EST 2024 Diastolic Blood Pressure 75.00 mm[Hg] Sat Feb 01 23:03:57 EST 2024 Heart Rate 75.00 /min Sat Feb 01 23:03 :57 EST 2024 Systolic Blood Pressure 165.00 mm[Hg] Sat Feb 01 13:23:03 EST 2024 Diastolic Blood Pressure 77.00 mm[Hg] Sat Feb 01 13:23:03 EST 2024 Systolic Blood Pressure 165.00 mm[Hg] Sat Feb 01 10:00:31 EST 2024 Diastolic Blood Pressure 77.00 mm[Hg] Sat Feb 01 10:00:31 EST 2024 Systolic Blood Pressure 165.00 mm[Hg] Sat Feb 01 10:00:31 EST 2024 Diastolic Blood Pressure 77.00 mm[Hg] Sat Feb 01 10:00:31 EST 2024 Systolic Blood Pressure 165.00 mm[Hg] Sat Feb 01 10:00:31 EST 2024 Diastolic Blood Pressure 77.00 mm[Hg] Sat Feb 01 10:00:31 EST 2024 Systolic Blood Pressure 165.00 mm[Hg] Sat Feb 01 10:00:31 EST 2024 Diastolic Blood Pressure 77.00 mm[Hg] Sat Feb 01 10:00:31 EST 5 Heart Rate 70.00 /min SatAug 01 10:00 :31 EST 5 Systolic Blood Pressure 165.00 mm[Hg] SatAug 01 08:14:46 EST 2024 Diastolic Blood Pressure 77.00 mm[Hg] [facility] Aug 01 08:14:46 EST 5 Heart Rate 70.00 /min SatAug 01 08:14 :46 EST 2024 Pulse Oximetry 90.00 % SatAug 01 08:14 :46 EST 2024 Systolic Blood Pressure 140.00 mm[Hg] SatJul 31 20:25:43 EST 2024 Diastolic Blood Pressure 76.00 mm[Hg] SatJul 31 20:25:43 EST 2024 Systolic Blood Pressure 140.00 mm[Hg] SatJul 31 20:25:43 EST 2024 Diastolic Blood Pressure 76.00 mm[Hg] SatJul 31 20:25:43 EST 2024 Systolic Blood Pressure 140.00 mm[Hg] SatJul 31 20:25:43 EST 2024 Diastolic Blood Pressure 76.00 mm[Hg] SatJul 31 20:25:43 EST 2024 Heart Rate 64.00 /min SatJul 31 20:25 :43 EST 2024 Systolic Blood Pressure 144.00 mm[Hg] SatJul 31 14:48:14 EST 2024 Diastolic Blood Pressure 74.00 mm[Hg] SatJul 31 14:48:14 EST 2024 Systolic Blood Pressure 138.00 mm[Hg] SatJul 31 10:56:04 EST 2024 Diastolic Blood Pressure 79.00 mm[Hg] SatJul 31 10:56:04 EST 2024 Systolic Blood Pressure 138.00 mm[Hg] SatJul 31 10:56:04 EST 2024 Diastolic Blood Pressure 79.00 mm[Hg] SatJul 31 10:56:04 EST 2024 Systolic Blood Pressure 138.00 mm[Hg] SatJul 31 10:56:04 EST 2024 Diastolic Blood Pressure 79.00 mm[Hg] SatJul 31 10:56:04 EST 2024 Systolic Blood Pressure 138.00 mm[Hg] SatJul 31 10:56:04 EST 2024 Diastolic Blood Pressure 79.00 mm[Hg] SatJul 31 10:56:04 EST 2024 Heart Rate 64.00 /min SatJul 31 10:56 :04 EST 2024 Systolic Blood Pressure 158.00 mm[Hg] SatJul 30 20:15:10 EST 2024 Diastolic Blood Pressure 85.00 mm[Hg] SatJul 30 20:15:10 EST 2024 Systolic Blood Pressure 158.00 mm[Hg] SatJul 30 20:15:10 EST 2024 Diastolic Blood Pressure 85.00 mm[Hg] SatJul 30 20:15:10 EST 2024 Systolic Blood Pressure 158.00 mm[Hg] SatJul 30 20:15:10 EST 2024 Diastolic Blood Pressure 85.00 mm[Hg] SatJul 30 20:15:10 EST 2024 Heart Rate 91.00 /min SatJul 30 20:15 :10 EST 2024 Systolic Blood Pressure 129.00 mm[Hg] SatJul 30 13:12:46 EST 2024 Diastolic Blood Pressure 73.00 mm[Hg] SatJul 30 13:12:46 EST 2024 Systolic Blood Pressure 145.00 mm[Hg] SatJul 30 09:44:51 EST 2024 Diastolic Blood Pressure 85.00 mm[Hg] SatJul 30 09:44:51 EST 2024 Systolic Blood Pressure 145.00 mm[Hg] SatJul 30 09:44:51 EST 2024 Diastolic Blood Pressure 85.00 mm[Hg] SatJul 30 09:44:51 EST 2024 Systolic Blood Pressure 145.00 mm[Hg] SatJul 30 09:44:51 EST 2024 Diastolic Blood Pressure 85.00 mm[Hg] SatJul 30 09:44:51 EST 2024 Systolic Blood Pressure 145.00 mm[Hg] SatJul 30 09:44:51 EST 2024 Diastolic Blood Pressure 85.00 mm[Hg] SatJul 30 09:44:51 EST 2024 Heart Rate 59.00 /min SatJul 30 09:44 :51 EST 5 Systolic Blood Pressure 117.00 mm[Hg] SatJul 29 22:46:31 EST 5 Diastolic Blood Pressure 74.00 mm[Hg] SatJul 29 22:46:31 EST 2024 Systolic Blood Pressure 117.00 mm[Hg] SatJul 29 22:46:31 EST 2024 Diastolic Blood Pressure 74.00 mm[Hg] SatJul 29 22:46:31 EST 5 Systolic Blood Pressure 117.00 mm[Hg] SatJul 29 22:46:31 EST 2024 Diastolic Blood Pressure 74.00 mm[Hg] SatJul 29 22:46:31 EST 2024 Heart Rate 85.00 /min SatJul 29 22:46 :31 EST 2024 Systolic Blood Pressure 127.00 mm[Hg] SatJul 29 13:33:41 EST 2024 Diastolic Blood Pressure 85.00 mm[Hg] SatJul 29 13:33:41 EST 2024 Systolic Blood Pressure 125.00 mm[Hg] SatJul 29 11:59:14 EST 2024 Diastolic Blood Pressure 75.00 mm[Hg] SatJul 29 11:59:14 EST 2024 Heart Rate 86.00 /min SatJul 29 11:59 :14 EST 2024 Body temperature 97.70 [degF] SatJul 29 11:5 9:14 EST 2024 Respiratory rate 20.00 /min SatJul 29 11:5 9:14 EST 2024 Pulse Oximetry 90.00 % SatJul 29 11:59 :14 EST 2024 Systolic Blood Pressure 125.00 mm[Hg] SatJul 29 10:42:01 EST 2024 Diastolic Blood Pressure 75.00 mm[Hg] SatJul 29 10:42:01 EST 2024 Systolic Blood Pressure 125.00 mm[Hg] SatJul 29 10:42:01 EST 2024 Diastolic Blood Pressure 75.00 mm[Hg] SatJul 29 10:42:01 EST 2024 Systolic Blood Pressure 125.00 mm[Hg] SatJul 29 10:42:01 EST 2024 Diastolic Blood Pressure 75.00 mm[Hg] SatJul 29 10:42:01 EST 2024 Systolic Blood Pressure 125.00 mm[Hg] SatJul 29 10:42:01 EST 2024 Diastolic Blood Pressure 75.00 mm[Hg] SatJul 29 10:42:01 EST 2024 Heart Rate 86.00 /min SatJul 29 10:42 :01 EST 2024 Systolic Blood Pressure 125.00 mm[Hg] SatJul 29 09:15:22 EST 2024 Diastolic Blood Pressure 75.00 mm[Hg] SatJul 29 09:15:22 EST 2024 Pulse Oximetry 90.00 % SatJul 29 09:15 :22 EST 2024 Heart Rate 86.00 /min SatJul 29 09:15 :22 EST 2024 Systolic Blood Pressure 166.00 mm[Hg] SatJul 28 20:51:39 EST 2024 Diastolic Blood Pressure 98.00 mm[Hg] SatJul 28 20:51:39 EST 2024 Systolic Blood Pressure 166.00 mm[Hg] SatJul 28 20:51:39 EST 2024 Diastolic Blood Pressure 98.00 mm[Hg] SatJul 28 20:51:39 EST 2024 Systolic Blood Pressure 145.00 mm[Hg] SatJul 28 13:06:22 EST 2024 Diastolic Blood Pressure 82.00 mm[Hg] SatJul 28 13:06:22 EST 5 Systolic Blood Pressure 163.00 mm[Hg] SatJul 28 09:26:49 EST 2024 Diastolic Blood Pressure 96.00 mm[Hg] SatJul 28 09:26:49 EST 2024 Systolic Blood Pressure 163.00 mm[Hg] SatJul 28 09:26:49 EST 2024 Diastolic Blood Pressure 96.00 mm[Hg] SatJul 28 09:26:49 EST 2024 Systolic Blood Pressure 163.00 mm[Hg] SatJul 28 09:26:49 EST 2024 Diastolic Blood Pressure 96.00 mm[Hg] SatJul 28 09:26:49 EST 2024 Systolic Blood Pressure 163.00 mm[Hg] SatJul 28 08:08:50 EST 2024 Diastolic Blood Pressure 96.00 mm[Hg] SatJul 28 08:08:50 EST 5 Heart Rate 122.00 /min SatJul 28 08:08 :50 EST 2024 Systolic Blood Pressure 149.00 mm[Hg] SatJul 27 21:16:11 EST 2024 Diastolic Blood Pressure 80.00 mm[Hg] SatJul 27 21:16:11 EST 2024 Systolic Blood Pressure 149.00 mm[Hg] SatJul 27 21:16:11 EST 2024 Diastolic Blood Pressure 80.00 mm[Hg] SatJul 27 21:16:11 EST 2024 Systolic Blood Pressure 156.00 mm[Hg] SatJul 27 13:30:38 EST 2024 Diastolic Blood Pressure 94.00 mm[Hg] SatJul 27 13:30:38 EST 2024 Systolic Blood Pressure 157.00 mm[Hg] SatJul 27 08:58:46 EST 2024 Diastolic Blood Pressure 84.00 mm[Hg] SatJul 27 08:58:46 EST 2024 Systolic Blood Pressure 157.00 mm[Hg] SatJul 27 08:58:46 EST 2024 Diastolic Blood Pressure 84.00 mm[Hg] SatJul 27 08:58:46 EST 2024 Systolic Blood Pressure 157.00 mm[Hg] SatJul 27 08:58:46 EST 2024 Diastolic Blood Pressure 84.00 mm[Hg] SatJul 27 08:58:46 EST 2024 Systolic Blood Pressure 157.00 mm[Hg] SatJul 27 08:06:07 EST 2024 Diastolic Blood Pressure 84.00 mm[Hg] SatJul 27 08:06:07 EST 2024 Systolic Blood Pressure 161.00 mm[Hg] SatJul 27 07:31:23 EST 2024 Diastolic Blood Pressure 132.00 mm[Hg] SatJul 27 07:31:23 EST 2024 Pulse Oximetry 94.00 % SatJul 27 07:31 :23 EST 2024 Heart Rate 84.00 /min SatJul 27 07:31 :23 EST 2024 Systolic Blood Pressure 156.00 mm[Hg] SatJul 26 23:56:39 EST 2024 Diastolic Blood Pressure 101.00 mm[Hg] SatJul 26 23:56:39 EST 2024 Systolic Blood Pressure 156.00 mm[Hg] SatJul 26 23:56:39 EST 2024 Diastolic Blood Pressure 101.00 mm[Hg] SatJul 26 23:56:39 EST 2024 Systolic Blood Pressure 155.00 mm[Hg] SatJul 26 12:49:09 EST 2024 Diastolic Blood Pressure 85.00 mm[Hg] SatJul 26 12:49:09 EST 2024 Systolic Blood Pressure 121.00 mm[Hg] SatJul 26 10:12:48 EST 2024 Diastolic Blood Pressure 73.00 mm[Hg] SatJul 26 10:12:48 EST 2024 Systolic Blood Pressure 121.00 mm[Hg] SatJul 26 10:12:48 EST 2024 Diastolic Blood Pressure 73.00 mm[Hg] SatJul 26 10:12:48 EST 2024 Systolic Blood Pressure 121.00 mm[Hg] SatJul 26 10:12:48 EST 2024 Diastolic Blood Pressure 73.00 mm[Hg] SatJul 26 10:12:48 EST 2024 Systolic Blood Pressure 148.00 mm[Hg] Sun Jul 26 00:10:40 EST 2024 Diastolic Blood Pressure 87.00 mm[Hg] SatJul 26 00:10:40 EST 2024 Systolic Blood Pressure 148.00 mm[Hg] SatJul 26 00:10:40 EST 2024 Diastolic Blood Pressure 87.00 mm[Hg] Sun Jul 26 00:10:40 EST 2024 Systolic Blood Pressure 144.00 mm[Hg] SatJul 25 13:51:29 EST 2024 Diastolic Blood Pressure 73.00 mm[Hg] SatJul 25 13:51:29 EST 2024 Systolic Blood Pressure 125.00 mm[Hg] SatJul 25 10:58:02 EST 2024 Diastolic Blood Pressure 67.00 mm[Hg] SatJul 25 10:58:02 EST 2024 Systolic Blood Pressure 125.00 mm[Hg] SatJul 25 10:58:02 EST 2024 Diastolic Blood Pressure 67.00 mm[Hg] SatJul 25 10:58:02 EST 2024 Systolic Blood Pressure 125.00 mm[Hg] SatJul 25 10:58:02 EST 2024 Diastolic Blood Pressure 67.00 mm[Hg] SatJul 25 10:58:02 EST 2024 Systolic Blood Pressure 159.00 mm[Hg] SatJul 24 21:35:00 EST 2024 Diastolic Blood Pressure 94.00 mm[Hg] SatJul 24 21:35:00 EST 2024 Systolic Blood Pressure 159.00 mm[Hg] SatJul 24 21:35:00 EST 2024 Diastolic Blood Pressure 94.00 mm[Hg] SatJul 24 21:35:00 EST 2024 Systolic Blood Pressure 159.00 mm[Hg] SatJul 24 13:16:54 EST 2024 Diastolic Blood Pressure 89.00 mm[Hg] SatJul 24 13:16:54 EST 2024 Systolic Blood Pressure 159.00 mm[Hg] SatJul 24 12:58:25 EST 2024 Diastolic Blood Pressure 89.00 mm[Hg] SatJul 24 12:58:25 EST 2024 Heart Rate 92.00 /min SatJul 24 12:58 :25 EST 2024 Pulse Oximetry 93.00 % SatJul 24 12:58 :25 EST 2024 Systolic Blood Pressure 149.00 mm[Hg] SatJul 24 09:09:14 EST 2024 Diastolic Blood Pressure 85.00 mm[Hg] SatJul 24 09:09:14 EST 2024 Systolic Blood Pressure 149.00 mm[Hg] SatJul 24 09:09:14 EST 2024 Diastolic Blood Pressure 85.00 mm[Hg] SatJul 24 09:09:14 EST 2024 Systolic Blood Pressure 149.00 mm[Hg] SatJul 24 09:09:14 EST 2024 Diastolic Blood Pressure 85.00 mm[Hg] SatJul 24 09:09:14 EST 2024 Systolic Blood Pressure 157.00 mm[Hg] SatJul 23 20:35:13 EST 2024 Diastolic Blood Pressure 78.00 mm[Hg] SatJul 23 20:35:13 EST 2024 Systolic Blood Pressure 157.00 mm[Hg] SatJul 23 20:35:13 EST 2024 Diastolic Blood Pressure 78.00 mm[Hg] SatJul 23 20:35:13 EST 2024 Body weight 264.00 [lb_av] SatJul 23 18:27 :41 EST 2024 Systolic Blood Pressure 161.00 mm[Hg] SatJul 23 16:17:44 EST 2024 Diastolic Blood Pressure 95.00 mm[Hg] SatJul 23 16:17:44 EST 2024 Systolic Blood Pressure 140.00 mm[Hg] SatJul 23 10:58:18 EST 2024 Diastolic Blood Pressure 73.00 mm[Hg] SatJul 23 10:58:18 EST 2024 Systolic Blood Pressure 140.00 mm[Hg] SatJul 23 10:58:18 EST 2024 Diastolic Blood Pressure 73.00 mm[Hg] SatJul 23 10:58:18 EST 2024 Systolic Blood Pressure 140.00 mm[Hg] SatJul 23 10:58:18 EST 2024 Diastolic Blood Pressure 73.00 mm[Hg] SatJul 23 10:58:18 EST 2024 Systolic Blood Pressure 140.00 mm[Hg] SatJul 23 07:11:29 EST 2024 Diastolic Blood Pressure 73.00 mm[Hg] SatJul 23 07:11:29 EST 2024 Heart Rate 84.00 /min SatJul 23 07:11 :29 EST 2024 Pulse Oximetry 95.00 % SatJul 23 07:11 :29 EST 2024 Systolic Blood Pressure 138.00 mm[Hg] SatJul 22 20:42:00 EST 2024 Diastolic Blood Pressure 86.00 mm[Hg] SatJul 22 20:42:00 EST 2024 Systolic Blood Pressure 138.00 mm[Hg] SatJul 22 20:42:00 EST 2024 Diastolic Blood Pressure 86.00 mm[Hg] SatJul 22 20:42:00 EST 2024 Systolic Blood Pressure 143.00 mm[Hg] SatJul 22 14:14:14 EST 2024 Diastolic Blood Pressure 86.00 mm[Hg] SatJul 22 14:14:14 EST 2024 Systolic Blood Pressure 136.00 mm[Hg] SatJul 22 11:59:35 EST 2024 Diastolic Blood Pressure 88.00 mm[Hg] SatJul 22 11:59:35 EST 2024 Heart Rate 90.00 /min SatJul 22 11:59 :35 EST 2024 Body temperature 97.20 [degF] SatJul 22 11:5 9:35 EST 2024 Respiratory rate 18.00 /min SatJul 22 11:5 9:35 EST 2024 Pulse Oximetry 97.00 % SatJul 22 11:59 :35 EST 2024 Systolic Blood Pressure 136.00 mm[Hg] SatJul 22 10:56:07 EST 2024 Diastolic Blood Pressure 88.00 mm[Hg] SatJul 22 10:56:07 EST 2024 Systolic Blood Pressure 136.00 mm[Hg] SatJul 22 10:56:07 EST 2024 Diastolic Blood Pressure 88.00 mm[Hg] SatJul 22 10:56:07 EST 2024 Systolic Blood Pressure 136.00 mm[Hg] SatJul 22 10:56:07 EST 2024 Diastolic Blood Pressure 88.00 mm[Hg] SatJul 22 10:56:07 EST 2024 Systolic Blood Pressure 136.00 mm[Hg] SatJul 22 08:33:51 EST 2024 Diastolic Blood Pressure 88.00 mm[Hg] SatJul 22 08:33:51 EST 2024 Respiratory rate 18.00 /min SatJul 22 08:3 3:51 EST 2024 Pulse Oximetry 97.00 % SatJul 22 08:33 :51 EST 2024 Heart Rate 90.00 /min SatJul 22 08:33 :51 EST 2024 Body temperature 97.20 [degF] SatJul 22 08:3 3:51 EST 2024 Systolic Blood Pressure 152.00 mm[Hg] SatJul 21 22:09:37 EST 2024 Diastolic Blood Pressure 92.00 mm[Hg] SatJul 21 22:09:37 EST 2024 Systolic Blood Pressure 152.00 mm[Hg] SatJul 21 22:09:37 EST 2024 Diastolic Blood Pressure 92.00 mm[Hg] SatJul 21 22:09:37 EST 2024 Systolic Blood Pressure 148.00 mm[Hg] SatJul 21 13:22:37 EST 2024 Diastolic Blood Pressure 88.00 mm[Hg] SatJul 21 13:22:37 EST 2024 Systolic Blood Pressure 146.00 mm[Hg] SatJul 21 10:05:51 EST 2024 Diastolic Blood Pressure 90.00 mm[Hg] SatJul 21 10:05:51 EST 2024 Systolic Blood Pressure 146.00 mm[Hg] SatJul 21 10:05:51 EST 2024 Diastolic Blood Pressure 90.00 mm[Hg] SatJul 21 10:05:51 EST 2024 Systolic Blood Pressure 146.00 mm[Hg] SatJul 21 10:05:51 EST 2024 Diastolic Blood Pressure 90.00 mm[Hg] SatJul 21 10:05:51 EST 2024 Systolic Blood Pressure 124.00 mm[Hg] SatJul 20 21:24:31 EST 2024 Diastolic Blood Pressure 79.00 mm[Hg] SatJul 20 21:24:31 EST 2024 Systolic Blood Pressure 124.00 mm[Hg] SatJul 20 21:24:31 EST 2024 Diastolic Blood Pressure 79.00 mm[Hg] SatJul 20 21:24:31 EST 2024 Systolic Blood Pressure 130.00 mm[Hg] SatJul 20 14:46:55 EST 2024 Diastolic Blood Pressure 86.00 mm[Hg] SatJul 20 14:46:55 EST 2024 Body weight 264.00 [lb_av] SatJul 20 14:46 :55 EST 2024 Body weight 264.00 [lb_av] SatJul 20 12:19 :43 EST 2024 Systolic Blood Pressure 147.00 mm[Hg] SatJul 20 09:33:55 EST 2024 Diastolic Blood Pressure 90.00 mm[Hg] SatJul 20 09:33:55 EST 2024 Systolic Blood Pressure 147.00 mm[Hg] SatJul 20 09:33:55 EST 2024 Diastolic Blood Pressure 90.00 mm[Hg] SatJul 20 09:33:55 EST 2024 Systolic Blood Pressure 147.00 mm[Hg] SatJul 20 09:33:55 EST 2024 Diastolic Blood Pressure 90.00 mm[Hg] SatJul 20 09:33:55 EST 2024 Systolic Blood Pressure 147.00 mm[Hg] SatJul 20 07:41:50 EST 2024 Diastolic Blood Pressure 90.00 mm[Hg] SatJul 20 07:41:50 EST 2024 Pulse Oximetry 92.00 % SatJul 20 07:41 :50 EST 2024 Heart Rate 102.00 /min SatJul 20 07:41 :50 EST 2024 Systolic Blood Pressure 132.00 mm[Hg] SatJul 19 23:18:21 EST 2024 Diastolic Blood Pressure 87.00 mm[Hg] SatJul 19 23:18:21 EST 2024 Systolic Blood Pressure 132.00 mm[Hg] Sun Jul 19 23:18:21 EST 2024 Diastolic Blood Pressure 87.00 mm[Hg] Sun Jul 19 23:18:21 EST 2024 Systolic Blood Pressure 151.00 mm[Hg] Sun Jul 19 13:29:22 EST 2024 Diastolic Blood Pressure 90.00 mm[Hg] Sun Jul 19 13:29:22 EST 2024 Systolic Blood Pressure 157.00 mm[Hg] Sun Jul 19 10:36:41 EST 2024 Diastolic Blood Pressure 84.00 mm[Hg] Sun Jul 19 10:36:41 EST 2024 Systolic Blood Pressure 157.00 mm[Hg] [place] Jul 19 10:36:41 EST 2024 Diastolic Blood Pressure 84.00 mm[Hg] [place] Jul 19 10:36:41 EST 2024 Systolic Blood Pressure 157.00 mm[Hg] [place] Jul 19 10:36:41 EST 2024 Diastolic Blood Pressure 84.00 mm[Hg] [place] Jul 19 10:36:41 EST 2024 Systolic Blood Pressure 157.00 mm[Hg] [place] Jul 19 07:54:27 EST 2024 Diastolic Blood Pressure 84.00 mm[Hg] [place] Jul 19 07:54:27 EST 2024 Pulse Oximetry 93.00 % [place] Jul 19 07:54 :27 EST 2024 Heart Rate 103.00 /min [place] Jul 19 07:54 :27 EST 2024 Systolic Blood Pressure 138.00 mm[Hg] [facility] Jul 18 21:50:13 EST 2024 Diastolic Blood Pressure 91.00 mm[Hg] Sat Jul 18 21:50:13 EST 2024 Systolic Blood Pressure 138.00 mm[Hg] Sat Jul 18 21:50:13 EST 2024 Diastolic Blood Pressure 91.00 mm[Hg] Sat Jul 18 21:50:13 EST 2024 Systolic Blood Pressure 141.00 mm[Hg] Sat Jul 18 13:31:36 EST 2024 Diastolic Blood Pressure 92.00 mm[Hg] Sat Jul 18 13:31:36 EST 2024 Systolic Blood Pressure 149.00 mm[Hg] Sat Jul 18 10:08:02 EST 2024 Diastolic Blood Pressure 91.00 mm[Hg] Sat Jul 18 10:08:02 EST 2024 Systolic Blood Pressure 149.00 mm[Hg] Sat Jul 18 10:08:02 EST 2024 Diastolic Blood Pressure 91.00 mm[Hg] Sat Jul 18 10:08:02 EST 2024 Systolic Blood Pressure 149.00 mm[Hg] SatJul 18 10:08:02 EST 2024 Diastolic Blood Pressure 91.00 mm[Hg] SatJul 18 10:08:02 EST 2024 Systolic Blood Pressure 160.00 mm[Hg] SatJul 17 23:13:21 EST 2024 Diastolic Blood Pressure 92.00 mm[Hg] SatJul 17 23:13:21 EST 2024 Systolic Blood Pressure 160.00 mm[Hg] SatJul 17 23:13:21 EST 2024 Diastolic Blood Pressure 92.00 mm[Hg] SatJul 17 23:13:21 EST 2024 Systolic Blood Pressure 163.00 mm[Hg] SatJul 17 13:19:45 EST 2024 Diastolic Blood Pressure 92.00 mm[Hg] SatJul 17 13:19:45 EST 2024 Systolic Blood Pressure 135.00 mm[Hg] SatJul 17 09:52:11 EST 2024 Diastolic Blood Pressure 90.00 mm[Hg] SatJul 17 09:52:11 EST 2024 Systolic Blood Pressure 135.00 mm[Hg] SatJul 17 09:52:11 EST 2024 Diastolic Blood Pressure 90.00 mm[Hg] SatJul 17 09:52:11 EST 2024 Systolic Blood Pressure 135.00 mm[Hg] SatJul 17 09:52:11 EST 2024 Diastolic Blood Pressure 90.00 mm[Hg] SatJul 17 09:52:11 EST 2024 Systolic Blood Pressure 150.00 mm[Hg] SatJul 17 07:42:29 EST 2024 Diastolic Blood Pressure 114.00 mm[Hg] SatJul 17 07:42:29 EST 2024 Body temperature 97.40 [degF] SatJul 17 07:4 2:29 EST 2024 Heart Rate 87.00 /min SatJul 17 07:42 :29 EST 2024 Pulse Oximetry 94.00 % SatJul 17 07:42 :29 EST 2024 Respiratory rate 20.00 /min SatJul 17 07:4 2:29 EST 2024 Systolic Blood Pressure 132.00 mm[Hg] SatJul 16 21:06:07 EST 2024 Diastolic Blood Pressure 78.00 mm[Hg] SatJul 16 21:06:07 EST 2024 Systolic Blood Pressure 132.00 mm[Hg] SatJul 16 21:06:07 EST 2024 Diastolic Blood Pressure 78.00 mm[Hg] SatJul 16 21:06:07 EST 2024 Systolic Blood Pressure 146.00 mm[Hg] SatJul 16 12:53:36 EST 5 Diastolic Blood Pressure 89.00 mm[Hg] SatJul 16 12:53:36 EST 2024 Systolic Blood Pressure 150.00 mm[Hg] SatJul 16 11:01:11 EST 5 Diastolic Blood Pressure 97.00 mm[Hg] SatJul 16 11:01:11 EST 2024 Systolic Blood Pressure 150.00 mm[Hg] SatJul 16 11:01:11 EST 2024 Diastolic Blood Pressure 97.00 mm[Hg] SatJul 16 11:01:11 EST 2024 Systolic Blood Pressure 150.00 mm[Hg] SatJul 16 11:01:11 EST 2024 Diastolic Blood Pressure 97.00 mm[Hg] SatJul 16 11:01:11 EST 2024 Systolic Blood Pressure 156.00 mm[Hg] SatJul 15 20:46:32 EST 2024 Diastolic Blood Pressure 92.00 mm[Hg] SatJul 15 20:46:32 EST 2024 Systolic Blood Pressure 156.00 mm[Hg] SatJul 15 20:46:32 EST 2024 Diastolic Blood Pressure 92.00 mm[Hg] SatJul 15 20:46:32 EST 2024 Systolic Blood Pressure 178.00 mm[Hg] SatJul 15 15:42:57 EST 2024 Diastolic Blood Pressure 98.00 mm[Hg] SatJul 15 15:42:57 EST 2024 Heart Rate 20.00 /min SatJul 15 15:42 :57 EST 2024 Body temperature 97.40 [degF] SatJul 15 15:4 2:57 EST 2024 Respiratory rate 20.00 /min SatJul 15 15:4 2:57 EST 2024 Pulse Oximetry 98.00 % SatJul 15 15:42 :57 EST 2024 Systolic Blood Pressure 163.00 mm[Hg] SatJul 15 14:24:33 EST 2024 Diastolic Blood Pressure 89.00 mm[Hg] SatJul 15 14:24:33 EST 2024 Systolic Blood Pressure 118.00 mm[Hg] SatJul 15 10:10:20 EST 2024 Diastolic Blood Pressure 98.00 mm[Hg] SatJul 15 10:10:20 EST 2024 Systolic Blood Pressure 118.00 mm[Hg] SatJul 15 10:10:20 EST 2024 Diastolic Blood Pressure 98.00 mm[Hg] SatJul 15 10:10:20 EST 2024 Systolic Blood Pressure 118.00 mm[Hg] SatJul 15 10:10:20 EST 2024 Diastolic Blood Pressure 98.00 mm[Hg] SatJul 15 10:10:20 EST 2024 Systolic Blood Pressure 142.00 mm[Hg] SatJul 14 20:49:28 EST 2024 Diastolic Blood Pressure 88.00 mm[Hg] SatJul 14 20:49:28 EST 2024 Systolic Blood Pressure 142.00 mm[Hg] SatJul 14 20:49:28 EST 2024 Diastolic Blood Pressure 88.00 mm[Hg] SatJul 14 20:49:28 EST 2024 Systolic Blood Pressure 139.00 mm[Hg] SatJul 14 12:50:14 EST 2024 Diastolic Blood Pressure 82.00 mm[Hg] SatJul 14 12:50:14 EST 2024 Systolic Blood Pressure 150.00 mm[Hg] SatJul 14 08:44:58 EST 2024 Diastolic Blood Pressure 75.00 mm[Hg] SatJul 14 08:44:58 EST 2024 Systolic Blood Pressure 150.00 mm[Hg] SatJul 14 08:44:58 EST 2024 Diastolic Blood Pressure 75.00 mm[Hg] SatJul 14 08:44:58 EST 2024 Systolic Blood Pressure 150.00 mm[Hg] SatJul 14 08:44:58 EST 2024 Diastolic Blood Pressure 75.00 mm[Hg] SatJul 14 08:44:58 EST 2024 Systolic Blood Pressure 150.00 mm[Hg] SatJul 14 08:06:47 EST 2024 Diastolic Blood Pressure 75.00 mm[Hg] SatJul 14 08:06:47 EST 2024 Heart Rate 86.00 /min SatJul 14 08:06 :47 EST 2024 Pulse Oximetry 96.00 % SatJul 14 08:06 :47 EST 2024 Systolic Blood Pressure 130.00 mm[Hg] SatJul 13 21:01:01 EST 2024 Diastolic Blood Pressure 81.00 mm[Hg] SatJul 13 21:01:01 EST 2024 Systolic Blood Pressure 130.00 mm[Hg] SatJul 13 21:01:01 EST 2024 Diastolic Blood Pressure 81.00 mm[Hg] SatJul 13 21:01:01 EST 2024 Body weight 269.80 [lb_av] SatJul 13 17:24 :25 EST 2024 Systolic Blood Pressure 141.00 mm[Hg] SatJul 13 13:07:49 EST 2024 Diastolic Blood Pressure 87.00 mm[Hg] SatJul 13 13:07:49 EST 2024 Body weight 269.80 [lb_av] SatJul 13 12:43 :42 EST 2024 Systolic Blood Pressure 136.00 mm[Hg] SatJul 13 10:18:22 EST 2024 Diastolic Blood Pressure 84.00 mm[Hg] SatJul 13 10:18:22 EST 2024 Systolic Blood Pressure 136.00 mm[Hg] SatJul 13 10:18:22 EST 2024 Diastolic Blood Pressure 84.00 mm[Hg] SatJul 13 10:18:22 EST 2024 Systolic Blood Pressure 136.00 mm[Hg] SatJul 13 10:18:22 EST 2024 Diastolic Blood Pressure 84.00 mm[Hg] SatJul 13 10:18:22 EST 2024 Systolic Blood Pressure 157.00 mm[Hg] [place] Jul 12 21:18:50 EST 2024 Diastolic Blood Pressure 84.00 mm[Hg] SatJul 12 21:18:50 EST 2024 Systolic Blood Pressure 157.00 mm[Hg] SatJul 12 21:18:50 EST 2024 Diastolic Blood Pressure 84.00 mm[Hg] [place] Jul 12 21:18:50 EST 2024 Systolic Blood Pressure 156.00 mm[Hg] SatJul 12 14:26:39 EST 2024 Diastolic Blood Pressure 88.00 mm[Hg] SatJul 12 14:26:39 EST 2024 Systolic Blood Pressure 157.00 mm[Hg] SatJul 12 10:12:46 EST 2024 Diastolic Blood Pressure 103.00 mm[Hg] SatJul 12 10:12:46 EST 2024 Systolic Blood Pressure 157.00 mm[Hg] SatJul 12 10:12:46 EST 2024 Diastolic Blood Pressure 103.00 mm[Hg] Sun Jul 12 10:12:46 EST 2024 Systolic Blood Pressure 157.00 mm[Hg] Sun Jul 12 10:12:46 EST 2024 Diastolic Blood Pressure 103.00 mm[Hg] Sun Jul 12 10:12:46 EST 2024 Systolic Blood Pressure 137.00 mm[Hg] Sun Jul 12 00:46:44 EST 2024 Diastolic Blood Pressure 86.00 mm[Hg] Sun Jul 12 00:46:44 EST 2024 Systolic Blood Pressure 137.00 mm[Hg] Sun Jul 12 00:46:44 EST 2024 Diastolic Blood Pressure 86.00 mm[Hg] SatJul 12 00:46:44 EST 2024 Systolic Blood Pressure 146.00 mm[Hg] Sat Jul 11 19:24:14 EST 2024 Diastolic Blood Pressure 86.00 mm[Hg] SatJul 11 19:24:14 EST 2024 Heart Rate 103.00 /min Sat Jul 11 19:24 :14 EST 2024 Respiratory rate 20.00 /min Sat Jul 11 19:2 4:14 EST 2024 Pulse Oximetry 94.00 % Sat Jul 11 19:24 :14 EST 2024 Body temperature 97.20 [degF] Sat Jul 11 19:2 4:14 EST 2024 Systolic Blood Pressure 158.00 mm[Hg] Sat Jul 11 13:35:07 EST 2024 Diastolic Blood Pressure 97.00 mm[Hg] Sat Jul 11 13:35:07 EST 2024 Systolic Blood Pressure 135.00 mm[Hg] Sat Jul 11 10:21:10 EST 2024 Diastolic Blood Pressure 84.00 mm[Hg] Sat Jul 11 10:21:10 EST 2024 Systolic Blood Pressure 135.00 mm[Hg] Sat Jul 11 10:21:10 EST 2024 Diastolic Blood Pressure 84.00 mm[Hg] Sat Jul 11 10:21:10 EST 2024 Systolic Blood Pressure 135.00 mm[Hg] Sat Jul 11 10:21:10 EST 2024 Diastolic Blood Pressure 84.00 mm[Hg] Sat Jul 11 10:21:10 EST 2024 Systolic Blood Pressure 135.00 mm[Hg] Sat Jul 11 07:58:21 EST 2024 Diastolic Blood Pressure 84.00 mm[Hg] SatJul 11 07:58:21 EST 2024 Heart Rate 95.00 /min SatJul 11 07:58 :21 EST 2024 Pulse Oximetry 89.00 % Sat Jul 11 07:58 :21 EST 2024 Systolic Blood Pressure 150.00 mm[Hg] SatJul 10 23:44:14 EST 2024 Diastolic Blood Pressure 91.00 mm[Hg] SatJul 10 23:44:14 EST 2024 Systolic Blood Pressure 150.00 mm[Hg] SatJul 10 23:44:14 EST 2024 Diastolic Blood Pressure 91.00 mm[Hg] SatJul 10 23:44:14 EST 2024 Systolic Blood Pressure 143.00 mm[Hg] SatJul 10 13:42:47 EST 2024 Diastolic Blood Pressure 96.00 mm[Hg] SatJul 10 13:42:47 EST 2024 Systolic Blood Pressure 157.00 mm[Hg] SatJul 10 10:15:27 EST 2024 Diastolic Blood Pressure 100.00 mm[Hg] SatJul 10 10:15:27 EST 2024 Systolic Blood Pressure 157.00 mm[Hg] SatJul 10 10:15:27 EST 2024 Diastolic Blood Pressure 100.00 mm[Hg] SatJul 10 10:15:27 EST 2024 Systolic Blood Pressure 157.00 mm[Hg] SatJul 10 10:15:27 EST 2024 Diastolic Blood Pressure 100.00 mm[Hg] SatJul 10 10:15:27 EST 2024 Systolic Blood Pressure 142.00 mm[Hg] [place] Jul 09 21:32:09 EST 2024 Diastolic Blood Pressure 77.00 mm[Hg] [place] Jul 09 21:32:09 EST 2024 Systolic Blood Pressure 142.00 mm[Hg] [place] Jul 09 21:32:09 EST 2024 Diastolic Blood Pressure 77.00 mm[Hg] [place] Jul 09 21:32:09 EST 2024 Systolic Blood Pressure 151.00 mm[Hg] [place] Jul 09 12:40:03 EST 2024 Diastolic Blood Pressure 91.00 mm[Hg] [place] Jul 09 12:40:03 EST 2024 Systolic Blood Pressure 145.00 mm[Hg] [place] Jul 09 09:42:24 EST 2024 Diastolic Blood Pressure 82.00 mm[Hg] [facility] Jul 09 09:42:24 EST 2024 Systolic Blood Pressure 145.00 mm[Hg] [place] Jul 09 09:42:24 EST 2024 Diastolic Blood Pressure 82.00 mm[Hg] [facility] Jul 09 09:42:24 EST 2024 Systolic Blood Pressure 145.00 mm[Hg] [facility] Jul 09 09:42:24 EST 2024 Diastolic Blood Pressure 82.00 mm[Hg] [facility] Jul 09 09:42:24 EST 2024 Systolic Blood Pressure 145.00 mm[Hg] [facility] Jul 09 07:56:25 EST 2024 Diastolic Blood Pressure 82.00 mm[Hg] [facility] Jul 09 07:56:25 EST 2024 Heart Rate 90.00 /min [facility] Jul 09 07:56 :25 EST 2024 Pulse Oximetry 94.00 % SatJul 09 07:56 :25 EST 2024 Systolic Blood Pressure 151.00 mm[Hg] SatJul 08 20:56:01 EST 2024 Diastolic Blood Pressure 75.00 mm[Hg] SatJul 08 20:56:01 EST 2024 Systolic Blood Pressure 151.00 mm[Hg] SatJul 08 20:56:01 EST 2024 Diastolic Blood Pressure 75.00 mm[Hg] SatJul 08 20:56:01 EST 2024 Systolic Blood Pressure 164.00 mm[Hg] SatJul 08 20:07:38 EST 2024 Diastolic Blood Pressure 98.00 mm[Hg] SatJul 08 20:07:38 EST 2024 Heart Rate 90.00 /min SatJul 08 20:07 :38 EST 2024 Body temperature 97.80 [degF] SatJul 08 20:0 7:38 EST 2024 Respiratory rate 18.00 /min SatJul 08 20:0 7:38 EST 2024 Pulse Oximetry 95.00 % SatJul 08 20:07 :38 EST 2024 Systolic Blood Pressure 129.00 mm[Hg] SatJul 08 14:56:50 EST 2024 Diastolic Blood Pressure 84.00 mm[Hg] SatJul 08 14:56:50 EST 2024 Systolic Blood Pressure 169.00 mm[Hg] SatJul 08 10:36:04 EST 2024 Diastolic Blood Pressure 98.00 mm[Hg] SatJul 08 10:36:04 EST 2024 Systolic Blood Pressure 169.00 mm[Hg] SatJul 08 10:36:04 EST 2024 Diastolic Blood Pressure 98.00 mm[Hg] SatJul 08 10:36:04 EST 2024 Systolic Blood Pressure 169.00 mm[Hg] SatJul 08 10:36:04 EST 2024 Diastolic Blood Pressure 98.00 mm[Hg] SatJul 08 10:36:04 EST 2024 Systolic Blood Pressure 146.00 mm[Hg] SatJul 08 02:06:30 EST 2024 Diastolic Blood Pressure 85.00 mm[Hg] SatJul 08 02:06:30 EST 2024 Systolic Blood Pressure 146.00 mm[Hg] SatJul 08 02:06:30 EST 2024 Diastolic Blood Pressure 85.00 mm[Hg] SatJul 08 02:06:30 EST 2024 Systolic Blood Pressure 171.00 mm[Hg] SatJul 07 13:06:36 EST 2024 Diastolic Blood Pressure 94.00 mm[Hg] SatJul 07 13:06:36 EST 2024 Systolic Blood Pressure 157.00 mm[Hg] SatJul 07 09:31:01 EST 2024 Diastolic Blood Pressure 83.00 mm[Hg] SatJul 07 09:31:01 EST 2024 Systolic Blood Pressure 157.00 mm[Hg] SatJul 07 09:31:01 EST 2024 Diastolic Blood Pressure 83.00 mm[Hg] SatJul 07 09:31:01 EST 2024 Systolic Blood Pressure 157.00 mm[Hg] SatJul 07 09:31:01 EST 2024 Diastolic Blood Pressure 83.00 mm[Hg] SatJul 07 09:31:01 EST 2024 Systolic Blood Pressure 157.00 mm[Hg] SatJul 07 07:39:16 EST 2024 Diastolic Blood Pressure 83.00 mm[Hg] SatJul 07 07:39:16 EST 2024 Pulse Oximetry 94.00 % SatJul 07 07:39 :16 EST 2024 Heart Rate 89.00 /min SatJul 07 07:39 :16 EST 2024 Systolic Blood Pressure 156.00 mm[Hg] SatJul 06 20:48:57 EST 2024 Diastolic Blood Pressure 88.00 mm[Hg] SatJul 06 20:48:57 EST 2024 Systolic Blood Pressure 156.00 mm[Hg] SatJul 06 20:48:57 EST 2024 Diastolic Blood Pressure 88.00 mm[Hg] SatJul 06 20:48:57 EST 2024 Body weight 278.80 [lb_av] SatJul 06 14:58 :43 EST 2024 Systolic Blood Pressure 176.00 mm[Hg] SatJul 06 13:36:19 EST 2024 Diastolic Blood Pressure 94.00 mm[Hg] SatJul 06 13:36:19 EST 2024 Systolic Blood Pressure 135.00 mm[Hg] SatJul 06 10:48:32 EST 2024 Diastolic Blood Pressure 89.00 mm[Hg] SatJul 06 10:48:32 EST 2024 Systolic Blood Pressure 135.00 mm[Hg] SatJul 06 10:48:32 EST 2024 Diastolic Blood Pressure 89.00 mm[Hg] SatJul 06 10:48:32 EST 2024 Systolic Blood Pressure 135.00 mm[Hg] SatJul 06 10:48:32 EST 2024 Diastolic Blood Pressure 89.00 mm[Hg] SatJul 06 10:48:32 EST 2024 Systolic Blood Pressure 138.00 mm[Hg] SatJul 05 22:24:30 EST 2024 Diastolic Blood Pressure 76.00 mm[Hg] Sun Jul 05 22:24:30 EST 2024 Systolic Blood Pressure 138.00 mm[Hg] Sun Jul 05 22:24:30 EST 2024 Diastolic Blood Pressure 76.00 mm[Hg] Sun Jul 05 22:24:30 EST 2024 Systolic Blood Pressure 144.00 mm[Hg] Sun Jul 05 13:00:08 EST 2024 Diastolic Blood Pressure 90.00 mm[Hg] Sun Jul 05 13:00:08 EST 2024 Systolic Blood Pressure 154.00 mm[Hg] Sun Jul 05 11:09:10 EST 2024 Diastolic Blood Pressure 77.00 mm[Hg] Sun Jul 05 11:09:10 EST 2024 Systolic Blood Pressure 154.00 mm[Hg] Sun Jul 05 11:09:10 EST 2024 Diastolic Blood Pressure 77.00 mm[Hg] Sun Jul 05 11:09:10 EST 2024 Systolic Blood Pressure 154.00 mm[Hg] Sun Jul 05 11:09:10 EST 2024 Diastolic Blood Pressure 77.00 mm[Hg] Sun Jul 05 11:09:10 EST 2024 Systolic Blood Pressure 154.00 mm[Hg] Sun Jul 05 08:35:56 EST 2024 Diastolic Blood Pressure 77.00 mm[Hg] Sun Jul 05 08:35:56 EST 2024 Heart Rate 92.00 /min Sun Jul 05 08:35 :56 EST 2024 Systolic Blood Pressure 154.00 mm[Hg] Sat Jul 04 21:53:52 EST 2024 Diastolic Blood Pressure 88.00 mm[Hg] Sat Jul 04 21:53:52 EST 2024 Systolic Blood Pressure 154.00 mm[Hg] Sat Jul 04 21:53:52 EST 2024 Diastolic Blood Pressure 88.00 mm[Hg] Sat Jul 04 21:53:52 EST 2024 Systolic Blood Pressure 143.00 mm[Hg] Sat Jul 04 13:06:54 EST 2024 Diastolic Blood Pressure 90.00 mm[Hg] Sat Jul 04 13:06:54 EST 2024 Systolic Blood Pressure 164.00 mm[Hg] Sat Jul 04 10:47:58 EST 2024 Diastolic Blood Pressure 77.00 mm[Hg] Sat Jul 04 10:47:58 EST 2024 Systolic Blood Pressure 164.00 mm[Hg] Sat Jul 04 10:47:58 EST 2024 Diastolic Blood Pressure 77.00 mm[Hg] Sat Jul 04 10:47:58 EST 2024 Systolic Blood Pressure 164.00 mm[Hg] SatJul 04 10:47:58 EST 2024 Diastolic Blood Pressure 77.00 mm[Hg] SatJul 04 10:47:58 EST 2024 Systolic Blood Pressure 155.00 mm[Hg] SatJul 03 21:38:52 EST 2024 Diastolic Blood Pressure 91.00 mm[Hg] SatJul 03 21:38:52 EST 2024 Systolic Blood Pressure 155.00 mm[Hg] SatJul 03 21:38:52 EST 2024 Diastolic Blood Pressure 91.00 mm[Hg] SatJul 03 21:38:52 EST 2024 Systolic Blood Pressure 123.00 mm[Hg] SatJul 03 13:14:49 EST 2024 Diastolic Blood Pressure 82.00 mm[Hg] SatJul 03 13:14:49 EST 2024 Systolic Blood Pressure 159.00 mm[Hg] SatJul 03 09:57:10 EST 2024 Diastolic Blood Pressure 63.00 mm[Hg] SatJul 03 09:57:10 EST 2024 Systolic Blood Pressure 159.00 mm[Hg] SatJul 03 09:57:10 EST 2024 Diastolic Blood Pressure 63.00 mm[Hg] SatJul 03 09:57:10 EST 2024 Systolic Blood Pressure 159.00 mm[Hg] SatJul 03 09:57:10 EST 2024 Diastolic Blood Pressure 63.00 mm[Hg] SatJul 03 09:57:10 EST 2024 Systolic Blood Pressure 159.00 mm[Hg] SatJul 03 07:55:09 EST 2024 Diastolic Blood Pressure 63.00 mm[Hg] SatJul 03 07:55:09 EST 2024 Heart Rate 85.00 /min SatJul 03 07:55 :09 EST 2024 Pulse Oximetry 90.00 % SatJul 03 07:55 :09 EST 2024 Systolic Blood Pressure 126.00 mm[Hg] SatJul 02 20:48:28 EST 2024 Diastolic Blood Pressure 85.00 mm[Hg] SatJul 02 20:48:28 EST 2024 Systolic Blood Pressure 126.00 mm[Hg] SatJul 02 20:48:28 EST 2024 Diastolic Blood Pressure 85.00 mm[Hg] SatJul 02 20:48:28 EST 2024 Systolic Blood Pressure 137.00 mm[Hg] SatJul 02 13:21:05 EST 2024 Diastolic Blood Pressure 84.00 mm[Hg] SatJul 02 13:21:05 EST 2024 Systolic Blood Pressure 149.00 mm[Hg] SatJul 02 08:53:05 EST 2024 Diastolic Blood Pressure 84.00 mm[Hg] SatJul 02 08:53:05 EST 2024 Systolic Blood Pressure 149.00 mm[Hg] SatJul 02 08:53:05 EST 2024 Diastolic Blood Pressure 84.00 mm[Hg] SatJul 02 08:53:05 EST 2024 Systolic Blood Pressure 149.00 mm[Hg] SatJul 02 08:53:05 EST 2024 Diastolic Blood Pressure 84.00 mm[Hg] SatJul 02 08:53:05 EST 2024 Systolic Blood Pressure 132.00 mm[Hg] SatJul 01 20:42:59 EST 2024 Diastolic Blood Pressure 77.00 mm[Hg] SatJul 01 20:42:59 EST 2024 Systolic Blood Pressure 132.00 mm[Hg] SatJul 01 20:42:59 EST 2024 Diastolic Blood Pressure 77.00 mm[Hg] SatJul 01 20:42:59 EST 2024 Systolic Blood Pressure 141.00 mm[Hg] SatJul 01 15:52:28 EST 2024 Diastolic Blood Pressure 81.00 mm[Hg] SatJul 01 15:52:28 EST 2024 Heart Rate 113.00 /min SatJul 01 15:52 :28 EST 2024 Pulse Oximetry 94.00 % SatJul 01 15:52 :28 EST 2024 Respiratory rate 20.00 /min SatJul 01 15:5 2:28 EST 2024 Body temperature 98.20 [degF] SatJul 01 15:5 2:28 EST 2024 Systolic Blood Pressure 141.00 mm[Hg] SatJul 01 12:49:07 EST 2024 Diastolic Blood Pressure 81.00 mm[Hg] SatJul 01 12:49:07 EST 2024 Systolic Blood Pressure 112.00 mm[Hg] SatJul 01 10:23:39 EST 2024 Diastolic Blood Pressure 79.00 mm[Hg] SatJul 01 10:23:39 EST 2024 Systolic Blood Pressure 112.00 mm[Hg] SatJul 01 10:23:39 EST 2024 Diastolic Blood Pressure 79.00 mm[Hg] SatJul 01 10:23:39 EST 2024 Systolic Blood Pressure 112.00 mm[Hg] SatJul 01 10:23:39 EST 2024 Diastolic Blood Pressure 79.00 mm[Hg] SatJul 01 10:23:39 EST 2024 Systolic Blood Pressure 150.00 mm[Hg] SatJun 30 22:16:46 EST 2023 Diastolic Blood Pressure 64.00 mm[Hg] SatJun 30 22:16:46 EST 2023 Systolic Blood Pressure 150.00 mm[Hg] SatJun 30 22:16:46 EST 2023 Diastolic Blood Pressure 64.00 mm[Hg] SatJun 30 22:16:46 EST 2023 Systolic Blood Pressure 152.00 mm[Hg] SatJun 30 13:20:54 EST 202 Diastolic Blood Pressure 85.00 mm[Hg] SatJun 30 13:20:54 EST 2023 Systolic Blood Pressure 152.00 mm[Hg] SatJun 30 09:03:31 EST 2023 Diastolic Blood Pressure 85.00 mm[Hg] SatJun 30 09:03:31 EST 2023 Systolic Blood Pressure 152.00 mm[Hg] SatJun 30 09:03:31 EST 2023 Diastolic Blood Pressure 85.00 mm[Hg] SatJun 30 09:03:31 EST 2023 Systolic Blood Pressure 152.00 mm[Hg] SatJun 30 09:03:31 EST 202 Diastolic Blood Pressure 85.00 mm[Hg] SatJun 30 09:03:31 EST 202 Systolic Blood Pressure 152.00 mm[Hg] SatJun 30 07:35:24 EST 2023 Diastolic Blood Pressure 85.00 mm[Hg] SatJun 30 07:35:24 EST 2023 Pulse Oximetry 90.00 % SatJun 30 07:35 :24 EST 2023 Heart Rate 78.00 /min SatJun 30 07:35 :24 EST 2023 Systolic Blood Pressure 156.00 mm[Hg] SatJun 29 20:58:48 EST 2023 Diastolic Blood Pressure 73.00 mm[Hg] SatJun 29 20:58:48 EST 2023 Systolic Blood Pressure 156.00 mm[Hg] SatJun 29 20:58:48 EST 2023 Diastolic Blood Pressure 73.00 mm[Hg] SatJun 29 20:58:48 EST 2023 Systolic Blood Pressure 148.00 mm[Hg] SatJun 29 13:06:08 EST 2023 Diastolic Blood Pressure 82.00 mm[Hg] SatJun 29 13:06:08 EST 2023 Systolic Blood Pressure 147.00 mm[Hg] SatJun 29 09:34:15 EST 2023 Diastolic Blood Pressure 84.00 mm[Hg] SatJun 29 09:34:15 EST 2023 Systolic Blood Pressure 147.00 mm[Hg] SatJun 29 09:34:15 EST 2023 Diastolic Blood Pressure 84.00 mm[Hg] SatJun 29 09:34:15 EST 2023 Systolic Blood Pressure 147.00 mm[Hg] SatJun 29 09:34:15 EST 2023 Diastolic Blood Pressure 84.00 mm[Hg] SatJun 29 09:34:15 EST 2023 Systolic Blood Pressure 147.00 mm[Hg] SatJun 29 07:38:11 EST 2023 Diastolic Blood Pressure 84.00 mm[Hg] SatJun 29 07:38:11 EST 2023 Pulse Oximetry 91.00 % SatJun 29 07:38 :11 EST 2023 Heart Rate 72.00 /min SatJun 29 07:38 :11 EST 2023 Systolic Blood Pressure 145.00 mm[Hg] [place] Dec 20:59:31 EST 2023 Diastolic Blood Pressure 79.00 mm[Hg] [place] Dec 20:59:31 EST 2023 Systolic Blood Pressure 145.00 mm[Hg] SatJun 28 20:59:31 EST 2023 Diastolic Blood Pressure 79.00 mm[Hg] Sat Dec 20:59:31 EST 2023 Systolic Blood Pressure 163.00 mm[Hg] Sat Dec 13:37:02 EST 2023 Diastolic Blood Pressure 86.00 mm[Hg] Sat Dec 13:37:02 EST 2023 Systolic Blood Pressure 157.00 mm[Hg] Sat Dec 09:55:41 EST 2023 Diastolic Blood Pressure 80.00 mm[Hg] Sat Dec 09:55:41 EST 2023 Systolic Blood Pressure 157.00 mm[Hg] Sat Dec 09:55:41 EST 2023 Diastolic Blood Pressure 80.00 mm[Hg] Sat Dec 09:55:41 EST 2023 Systolic Blood Pressure 157.00 mm[Hg] Sun Dec 09:55:41 EST 2023 Diastolic Blood Pressure 80.00 mm[Hg] Sat Dec 09:55:41 EST 2023 Systolic Blood Pressure 137.00 mm[Hg] [facility] Dec 21:00:27 EST 2023 Diastolic Blood Pressure 73.00 mm[Hg] [facility] Dec 21:00:27 EST 2023 Systolic Blood Pressure 137.00 mm[Hg] [facility] Dec 21:00:27 EST 2023 Diastolic Blood Pressure 73.00 mm[Hg] [facility] Dec 21:00:27 EST 2023 Systolic Blood Pressure 149.00 mm[Hg] Sat Dec 13:41:29 EST 202 Diastolic Blood Pressure 76.00 mm[Hg] Sat Dec 13:41:29 EST 2024 Systolic Blood Pressure 131.00 mm[Hg] Sat Dec 10:56:49 EST 2024 Diastolic Blood Pressure 67.00 mm[Hg] Sat Dec 10:56:49 EST 202 Systolic Blood Pressure 131.00 mm[Hg] Sat Dec 10:56:49 EST 2024 Diastolic Blood Pressure 67.00 mm[Hg] Sat Dec 10:56:49 EST 2024 Systolic Blood Pressure 131.00 mm[Hg] Sat Dec 10:56:49 EST 202 Diastolic Blood Pressure 67.00 mm[Hg] SatJun 27 10:56:49 EST 2023 Systolic Blood Pressure 148.00 mm[Hg] SatJun 26 21:22:11 EST 2023 Diastolic Blood Pressure 84.00 mm[Hg] SatJun 26 21:22:11 EST 2023 Systolic Blood Pressure 148.00 mm[Hg] SatJun 26 21:22:11 EST 202 Diastolic Blood Pressure 84.00 mm[Hg] SatJun 26 21:22:11 EST 2023 Systolic Blood Pressure 144.00 mm[Hg] SatJun 26 13:34:49 EST 2023 Diastolic Blood Pressure 86.00 mm[Hg] SatJun 26 13:34:49 EST 2023 Systolic Blood Pressure 122.00 mm[Hg] SatJun 26 09:54:48 EST 2023 Diastolic Blood Pressure 83.00 mm[Hg] SatJun 26 09:54:48 EST 2023 Systolic Blood Pressure 122.00 mm[Hg] SatJun 26 09:54:48 EST 2023 Diastolic Blood Pressure 83.00 mm[Hg] SatJun 26 09:54:48 EST 2023 Systolic Blood Pressure 122.00 mm[Hg] SatJun 26 09:54:48 EST 2023 Diastolic Blood Pressure 83.00 mm[Hg] SatJun 26 09:54:48 EST 2023 Systolic Blood Pressure 132.00 mm[Hg] SatJun 25 21:45:23 EST 2023 Diastolic Blood Pressure 80.00 mm[Hg] SatJun 25 21:45:23 EST 202 Systolic Blood Pressure 132.00 mm[Hg] SatJun 25 21:45:23 EST 2024 Diastolic Blood Pressure 80.00 mm[Hg] SatJun 25 21:45:23 EST 2023 Systolic Blood Pressure 156.00 mm[Hg] SatJun 25 13:21:56 EST 2023 Diastolic Blood Pressure 87.00 mm[Hg] SatJun 25 13:21:56 EST 2023 Systolic Blood Pressure 159.00 mm[Hg] SatJun 25 10:49:31 EST 2023 Diastolic Blood Pressure 104.00 mm[Hg] SatJun 25 10:49:31 EST 202 Systolic Blood Pressure 159.00 mm[Hg] SatJun 25 10:49:31 EST 2023 Diastolic Blood Pressure 104.00 mm[Hg] SatJun 25 10:49:31 EST 2023 Systolic Blood Pressure 159.00 mm[Hg] SatJun 25 10:49:31 EST 2023 Diastolic Blood Pressure 104.00 mm[Hg] SatJun 25 10:49:31 EST 2023 Systolic Blood Pressure 134.00 mm[Hg] SatJun 24 20:48:04 EST 2023 Diastolic Blood Pressure 75.00 mm[Hg] SatJun 24 20:48:04 EST 2023 Systolic Blood Pressure 134.00 mm[Hg] SatJun 24 20:48:04 EST 2023 Diastolic Blood Pressure 75.00 mm[Hg] SatJun 24 20:48:04 EST 2023 Systolic Blood Pressure 126.00 mm[Hg] SatJun 24 13:28:32 EST 2023 Diastolic Blood Pressure 78.00 mm[Hg] SatJun 24 13:28:32 EST 2023 Systolic Blood Pressure 145.00 mm[Hg] SatJun 24 11:52:04 EST 2023 Diastolic Blood Pressure 73.00 mm[Hg] SatJun 24 11:52:04 EST 2023 Heart Rate 81.00 /min SatJun 24 11:52 :04 EST 2023 Pulse Oximetry 94.00 % SatJun 24 11:52 :04 EST 2023 Respiratory rate 18.00 /min SatJun 24 11:5 2:04 EST 2023 Body temperature 96.80 [degF] SatJun 24 11:5 2:04 EST 2023 Systolic Blood Pressure 145.00 mm[Hg] SatJun 24 09:49:51 EST 2023 Diastolic Blood Pressure 73.00 mm[Hg] SatJun 24 09:49:51 EST 2023 Systolic Blood Pressure 145.00 mm[Hg] SatJun 24 09:49:51 EST 4 Diastolic Blood Pressure 73.00 mm[Hg] SatJun 24 09:49:51 EST 202 Systolic Blood Pressure 145.00 mm[Hg] SatJun 24 09:49:51 EST 2023 Diastolic Blood Pressure 73.00 mm[Hg] SatJun 24 09:49:51 EST 2024 Systolic Blood Pressure 145.00 mm[Hg] SatJun 24 07:56:50 EST 202 Diastolic Blood Pressure 73.00 mm[Hg] SatJun 24 07:56:50 EST 2023 Pulse Oximetry 94.00 % SatJun 24 07:56 :50 EST 2023 Heart Rate 81.00 /min SatJun 24 07:56 :50 EST 2023 Systolic Blood Pressure 128.00 mm[Hg] SatJun 23 21:11:07 EST 2023 Diastolic Blood Pressure 74.00 mm[Hg] SatJun 23 21:11:07 EST 2023 Systolic Blood Pressure 128.00 mm[Hg] SatJun 23 21:11:07 EST 2023 Diastolic Blood Pressure 74.00 mm[Hg] SatJun 23 21:11:07 EST 2023 Systolic Blood Pressure 122.00 mm[Hg] SatJun 23 13:14:59 EST 2023 Diastolic Blood Pressure 87.00 mm[Hg] SatJun 23 13:14:59 EST 2023 Systolic Blood Pressure 122.00 mm[Hg] SatJun 23 08:24:56 EST 2023 Diastolic Blood Pressure 87.00 mm[Hg] SatJun 23 08:24:56 EST 2023 Systolic Blood Pressure 122.00 mm[Hg] SatJun 23 08:24:56 EST 202 Diastolic Blood Pressure 87.00 mm[Hg] SatJun 23 08:24:56 EST 202 Systolic Blood Pressure 122.00 mm[Hg] SatJun 23 08:24:56 EST 2023 Diastolic Blood Pressure 87.00 mm[Hg] SatJun 23 08:24:56 EST 2023 Systolic Blood Pressure 122.00 mm[Hg] SatJun 23 08:20:39 EST 2023 Diastolic Blood Pressure 87.00 mm[Hg] SatJun 23 08:20:39 EST 4 Heart Rate 93.00 /min SatJun 23 08:20 :39 EST 2023 Systolic Blood Pressure 146.00 mm[Hg] SatJun 22 23:30:33 EST 2023 Diastolic Blood Pressure 85.00 mm[Hg] SatJun 22 23:30:33 EST 2023 Systolic Blood Pressure 146.00 mm[Hg] SatJun 22 23:30:33 EST 2023 Diastolic Blood Pressure 85.00 mm[Hg] SatJun 22 23:30:33 EST 2023 Systolic Blood Pressure 167.00 mm[Hg] SatJun 22 13:22:42 EST 2023 Diastolic Blood Pressure 81.00 mm[Hg] SatJun 22 13:22:42 EST 2023 Body weight 276.40 [lb_av] SatJun 22 11:57 :51 EST 2023 Body weight 276.40 [lb_av] SatJun 22 10:43 :03 EST 2023 Systolic Blood Pressure 126.00 mm[Hg] SatJun 22 10:29:12 EST 2023 Diastolic Blood Pressure 75.00 mm[Hg] SatJun 22 10:29:12 EST 2023 Systolic Blood Pressure 126.00 mm[Hg] SatJun 22 10:29:12 EST 2023 Diastolic Blood Pressure 75.00 mm[Hg] SatJun 22 10:29:12 EST 2023 Systolic Blood Pressure 126.00 mm[Hg] SatJun 22 10:29:12 EST 2023 Diastolic Blood Pressure 75.00 mm[Hg] SatJun 22 10:29:12 EST 2023 Systolic Blood Pressure 157.00 mm[Hg] SatJun 21 21:13:55 EST 2023 Diastolic Blood Pressure 93.00 mm[Hg] SatJun 21 21:13:55 EST 2023 Systolic Blood Pressure 157.00 mm[Hg] SatJun 21 21:13:55 EST 2023 Diastolic Blood Pressure 93.00 mm[Hg] SatJun 21 21:13:55 EST 2023 Systolic Blood Pressure 146.00 mm[Hg] SatJun 21 14:26:55 EST 2023 Diastolic Blood Pressure 73.00 mm[Hg] SatJun 21 14:26:55 EST 2023 Systolic Blood Pressure 146.00 mm[Hg] SatJun 21 13:01:29 EST 2023 Diastolic Blood Pressure 73.00 mm[Hg] SatJun 21 13:01:29 EST 2023 Heart Rate 79.00 /min SatJun 21 13:01 :29 EST 2023 Pulse Oximetry 96.00 % SatJun 21 13:01 :29 EST 2023 Systolic Blood Pressure 156.00 mm[Hg] SatJun 21 11:24:17 EST 2023 Diastolic Blood Pressure 88.00 mm[Hg] SatJun 21 11:24:17 EST 2023 Systolic Blood Pressure 156.00 mm[Hg] SatJun 21 11:24:17 EST 2023 Diastolic Blood Pressure 88.00 mm[Hg] SatJun 21 11:24:17 EST 2023 Systolic Blood Pressure 156.00 mm[Hg] SatJun 21 11:24:17 EST 2023 Diastolic Blood Pressure 88.00 mm[Hg] SatJun 21 11:24:17 EST 2023 Systolic Blood Pressure 152.00 mm[Hg] SatJun 21 08:47:54 EST 2023 Diastolic Blood Pressure 87.00 mm[Hg] SatJun 21 08:47:54 EST 2023 Heart Rate 79.00 /min SatJun 21 08:47 :54 EST 2023 Systolic Blood Pressure 152.00 mm[Hg] Sat Jun 20 21:33:39 EST 2023 Diastolic Blood Pressure 90.00 mm[Hg] Sat Jun 20 21:33:39 EST 2023 Systolic Blood Pressure 152.00 mm[Hg] Sat Jun 20 21:33:39 EST 2023 Diastolic Blood Pressure 90.00 mm[Hg] Sat Jun 20 21:33:39 EST 2023 Systolic Blood Pressure 137.00 mm[Hg] Sat Jun 20 13:54:39 EST 2023 Diastolic Blood Pressure 70.00 mm[Hg] Sat Jun 20 13:54:39 EST 2023 Systolic Blood Pressure 137.00 mm[Hg] Sat Jun 20 12:19:16 EST 2023 Diastolic Blood Pressure 70.00 mm[Hg] Sat Jun 20 12:19:16 EST 2023 Pulse Oximetry 95.00 % Sat Jun 20 12:19 :16 EST 2023 Heart Rate 87.00 /min Sat Jun 20 12:19 :16 EST 2023 Systolic Blood Pressure 132.00 mm[Hg] Sat Jun 20 10:11:43 EST 2023 Diastolic Blood Pressure 69.00 mm[Hg] Sat Jun 20 10:11:43 EST 2023 Systolic Blood Pressure 132.00 mm[Hg] Sat Jun 20 10:11:43 EST 2023 Diastolic Blood Pressure 69.00 mm[Hg] Sat Jun 20 10:11:43 EST 2023 Systolic Blood Pressure 132.00 mm[Hg] Sat Jun 20 10:11:43 EST 2023 Diastolic Blood Pressure 69.00 mm[Hg] Sat Dec 10:11:43 EST 2023 Systolic Blood Pressure 132.00 mm[Hg] Sat Dec 07:58:01 EST 2023 Diastolic Blood Pressure 69.00 mm[Hg] Sat Dec 07:58:01 EST 2023 Heart Rate 74.00 /min Sat Dec 07:58 :01 EST 2023 Pulse Oximetry 93.00 % SatJun 20 07:58 :01 EST 2023 Systolic Blood Pressure 142.00 mm[Hg] Sat Dec 20:39:17 EST 2023 Diastolic Blood Pressure 79.00 mm[Hg] SatJun 19 20:39:17 EST 2023 Systolic Blood Pressure 142.00 mm[Hg] SatJun 19 20:39:17 EST 2023 Diastolic Blood Pressure 79.00 mm[Hg] Sat Dec 20:39:17 EST 2023 Systolic Blood Pressure 133.00 mm[Hg] SatJun 19 13:16:10 EST 2023 Diastolic Blood Pressure 79.00 mm[Hg] SatJun 19 13:16:10 EST 2023 Systolic Blood Pressure 164.00 mm[Hg] SatJun 19 10:55:24 EST 2023 Diastolic Blood Pressure 90.00 mm[Hg] SatJun 19 10:55:24 EST 2023 Systolic Blood Pressure 164.00 mm[Hg] SatJun 19 10:55:24 EST 2023 Diastolic Blood Pressure 90.00 mm[Hg] SatJun 19 10:55:24 EST 2023 Systolic Blood Pressure 164.00 mm[Hg] SatJun 19 10:55:24 EST 2023 Diastolic Blood Pressure 90.00 mm[Hg] SatJun 19 10:55:24 EST 2023 Systolic Blood Pressure 128.00 mm[Hg] SatJun 18 20:58:18 EST 2023 Diastolic Blood Pressure 72.00 mm[Hg] SatJun 18 20:58:18 EST 2023 Systolic Blood Pressure 128.00 mm[Hg] SatJun 18 20:58:18 EST 2023 Diastolic Blood Pressure 72.00 mm[Hg] SatJun 18 20:58:18 EST 2023 Systolic Blood Pressure 125.00 mm[Hg] SatJun 18 14:14:52 EST 2023 Diastolic Blood Pressure 83.00 mm[Hg] SatJun 18 14:14:52 EST 2023 Systolic Blood Pressure 149.00 mm[Hg] SatJun 18 10:18:02 EST 2023 Diastolic Blood Pressure 95.00 mm[Hg] SatJun 18 10:18:02 EST 2023 Systolic Blood Pressure 149.00 mm[Hg] SatJun 18 10:18:02 EST 2023 Diastolic Blood Pressure 95.00 mm[Hg] SatJun 18 10:18:02 EST 2023 Systolic Blood Pressure 149.00 mm[Hg] SatJun 18 10:18:02 EST 4 Diastolic Blood Pressure 95.00 mm[Hg] SatJun 18 10:18:02 EST 2024 Systolic Blood Pressure 145.00 mm[Hg] SatJun 17 22:59:58 EST 2024 Diastolic Blood Pressure 69.00 mm[Hg] SatJun 17 22:59:58 EST 2024 Systolic Blood Pressure 145.00 mm[Hg] SatJun 17 22:59:58 EST 2024 Diastolic Blood Pressure 69.00 mm[Hg] SatJun 17 22:59:58 EST 202 Systolic Blood Pressure 169.00 mm[Hg] SatJun 17 13:06:09 EST 4 Diastolic Blood Pressure 98.00 mm[Hg] SatJun 17 13:06:09 EST 4 Systolic Blood Pressure 142.00 mm[Hg] SatJun 17 10:06:33 EST 2024 Diastolic Blood Pressure 71.00 mm[Hg] SatJun 17 10:06:33 EST 2024 Systolic Blood Pressure 142.00 mm[Hg] SatJun 17 10:06:33 EST 2024 Diastolic Blood Pressure 71.00 mm[Hg] SatJun 17 10:06:33 EST 2024 Systolic Blood Pressure 142.00 mm[Hg] SatJun 17 10:06:33 EST 2024 Diastolic Blood Pressure 71.00 mm[Hg] SatJun 17 10:06:33 EST 2024 Systolic Blood Pressure 157.00 mm[Hg] SatJun 17 09:58:55 EST 2023 Diastolic Blood Pressure 87.00 mm[Hg] SatJun 17 09:58:55 EST 4 Heart Rate 85.00 /min SatJun 17 09:58 :55 EST 2023 Pulse Oximetry 96.00 % SatJun 17 09:58 :55 EST 2023 Respiratory rate 20.00 /min SatJun 17 09:5 8:55 EST 2023 Body temperature 97.50 [degF] SatJun 17 09:5 8:55 EST 4 Systolic Blood Pressure 137.00 mm[Hg] SatJun 16 20:33:02 EST 4 Diastolic Blood Pressure 82.00 mm[Hg] SatJun 16 20:33:02 EST 4 Systolic Blood Pressure 137.00 mm[Hg] SatJun 16 20:33:02 EST 2023 Diastolic Blood Pressure 82.00 mm[Hg] SatJun 16 20:33:02 EST 2023 Systolic Blood Pressure 124.00 mm[Hg] SatJun 16 12:51:49 EST 2023 Diastolic Blood Pressure 68.00 mm[Hg] SatJun 16 12:51:49 EST 2023 Systolic Blood Pressure 124.00 mm[Hg] SatJun 16 08:29:41 EST 2023 Diastolic Blood Pressure 68.00 mm[Hg] SatJun 16 08:29:41 EST 2023 Systolic Blood Pressure 124.00 mm[Hg] SatJun 16 08:29:41 EST 2023 Diastolic Blood Pressure 68.00 mm[Hg] SatJun 16 08:29:41 EST 2023 Systolic Blood Pressure 124.00 mm[Hg] SatJun 16 08:29:41 EST 2023 Diastolic Blood Pressure 68.00 mm[Hg] SatJun 16 08:29:41 EST 2023 Systolic Blood Pressure 148.00 mm[Hg] SatJun 15 23:11:00 EST 2023 Diastolic Blood Pressure 85.00 mm[Hg] SatJun 15 23:11:00 EST 2023 Heart Rate 88.00 /min SatJun 15 23:11 :00 EST 2023 Respiratory rate 18.00 /min SatJun 15 23:1 1:00 EST 2023 Pulse Oximetry 96.00 % SatJun 15 23:11 :00 EST 2023 Body temperature 98.50 [degF] SatJun 15 23:1 1:00 EST 2023 Systolic Blood Pressure 147.00 mm[Hg] SatJun 15 21:09:17 EST 2023 Diastolic Blood Pressure 78.00 mm[Hg] SatJun 15 21:09:17 EST 2023 Systolic Blood Pressure 147.00 mm[Hg] SatJun 15 21:09:17 EST 2023 Diastolic Blood Pressure 78.00 mm[Hg] SatJun 15 21:09:17 EST 2023 Systolic Blood Pressure 153.00 mm[Hg] SatJun 15 13:28:36 EST 2023 Diastolic Blood Pressure 85.00 mm[Hg] SatJun 15 13:28:36 EST 2023 Systolic Blood Pressure 160.00 mm[Hg] SatJun 15 10:07:33 EST 2023 Diastolic Blood Pressure 83.00 mm[Hg] SatJun 15 10:07:33 EST 2023 Systolic Blood Pressure 160.00 mm[Hg] Sat Dec 16 10:07:33 EST 2023 Diastolic Blood Pressure 83.00 mm[Hg] Sat Dec 16 10:07:33 EST 2023 Systolic Blood Pressure 160.00 mm[Hg] Sat Dec 16 10:07:33 EST 2023 Diastolic Blood Pressure 83.00 mm[Hg] Sat Dec 16 10:07:33 EST 2023 Systolic Blood Pressure 128.00 mm[Hg] Sun Dec 15 20:41:15 EST 2023 Diastolic Blood Pressure 76.00 mm[Hg] Sun Dec 15 20:41:15 EST 2023 Systolic Blood Pressure 128.00 mm[Hg] Sun Dec 15 20:41:15 EST 2023 Diastolic Blood Pressure 76.00 mm[Hg] [place] Dec 15 20:41:15 EST 2023 Systolic Blood Pressure 116.00 mm[Hg] [place] Dec 15 13:21:57 EST 2023 Diastolic Blood Pressure 78.00 mm[Hg] [place] Dec 15 13:21:57 EST 2023 Systolic Blood Pressure 142.00 mm[Hg] [place] Dec 15 10:18:54 EST 2023 Diastolic Blood Pressure 85.00 mm[Hg] [place] Dec 15 10:18:54 EST 2023 Systolic Blood Pressure 142.00 mm[Hg] [place] Dec 15 10:18:54 EST 2023 Diastolic Blood Pressure 85.00 mm[Hg] [place] Dec 15 10:18:54 EST 2023 Systolic Blood Pressure 142.00 mm[Hg] [place] Dec 15 10:18:54 EST 2023 Diastolic Blood Pressure 85.00 mm[Hg] [place] Dec 15 10:18:54 EST 2023 Systolic Blood Pressure 145.00 mm[Hg] Sat Dec 14 21:10:45 EST 2023 Diastolic Blood Pressure 74.00 mm[Hg] Sat Dec 14 21:10:45 EST 2023 Systolic Blood Pressure 145.00 mm[Hg] Sat Dec 14 21:10:45 EST 2023 Diastolic Blood Pressure 74.00 mm[Hg] Sat Dec 14 21:10:45 EST 2023 Systolic Blood Pressure 134.00 mm[Hg] Sat Dec 14 13:02:00 EST 2023 Diastolic Blood Pressure 76.00 mm[Hg] Sat Dec 14 13:02:00 EST 2023 Systolic Blood Pressure 121.00 mm[Hg] Sat Dec 14 09:50:34 EST 2023 Diastolic Blood Pressure 72.00 mm[Hg] Sat Dec 14 09:50:34 EST 4 Systolic Blood Pressure 121.00 mm[Hg] Sat Dec 14 09:50:34 EST 2024 Diastolic Blood Pressure 72.00 mm[Hg] Sat Dec 14 09:50:34 EST 4 Systolic Blood Pressure 121.00 mm[Hg] Sat Dec 14 09:50:34 EST 4 Diastolic Blood Pressure 72.00 mm[Hg] Sat Dec 14 09:50:34 EST 4 Systolic Blood Pressure 154.00 mm[Hg] Sat Dec 21:19:13 EST 202 Diastolic Blood Pressure 88.00 mm[Hg] SatJun 12 21:19:13 EST 4 Systolic Blood Pressure 154.00 mm[Hg] SatJun 12 21:19:13 EST 2023 Diastolic Blood Pressure 88.00 mm[Hg] SatJun 12 21:19:13 EST 4 Systolic Blood Pressure 128.00 mm[Hg] SatJun 12 13:01:55 EST 2023 Diastolic Blood Pressure 71.00 mm[Hg] SatJun 12 13:01:55 EST 2023 Systolic Blood Pressure 139.00 mm[Hg] SatJun 12 10:21:00 EST 2023 Diastolic Blood Pressure 81.00 mm[Hg] SatJun 12 10:21:00 EST 2023 Systolic Blood Pressure 139.00 mm[Hg] SatJun 12 10:21:00 EST 2023 Diastolic Blood Pressure 81.00 mm[Hg] SatJun 12 10:21:00 EST 2023 Systolic Blood Pressure 139.00 mm[Hg] SatJun 12 10:21:00 EST 2023 Diastolic Blood Pressure 81.00 mm[Hg] SatJun 12 10:21:00 EST 2023 Systolic Blood Pressure 139.00 mm[Hg] SatJun 12 08:37:35 EST 2023 Diastolic Blood Pressure 81.00 mm[Hg] SatJun 12 08:37:35 EST 2023 Pulse Oximetry 94.00 % SatJun 12 08:37 :35 EST 2023 Heart Rate 81.00 /min SatJun 12 08:37 :35 EST 2023 Systolic Blood Pressure 179.00 mm[Hg] SatJun 11 23:56:13 EST 4 Diastolic Blood Pressure 97.00 mm[Hg] SatJun 11 23:56:13 EST 4 Systolic Blood Pressure 179.00 mm[Hg] SatJun 11 23:56:13 EST 202 Diastolic Blood Pressure 97.00 mm[Hg] SatJun 11 23:56:13 EST 2023 Systolic Blood Pressure 157.00 mm[Hg] SatJun 11 13:28:34 EST 4 Diastolic Blood Pressure 82.00 mm[Hg] SatJun 11 13:28:34 EST 4 Systolic Blood Pressure 106.00 mm[Hg] SatJun 11 10:13:36 EST 4 Diastolic Blood Pressure 67.00 mm[Hg] SatJun 11 10:13:36 EST 2023 Systolic Blood Pressure 106.00 mm[Hg] SatJun 11 10:13:36 EST 4 Diastolic Blood Pressure 67.00 mm[Hg] SatJun 11 10:13:36 EST 2023 Systolic Blood Pressure 106.00 mm[Hg] SatJun 11 10:13:36 EST 2023 Diastolic Blood Pressure 67.00 mm[Hg] SatJun 11 10:13:36 EST 2023 Systolic Blood Pressure 106.00 mm[Hg] SatJun 11 08:05:57 EST 2023 Diastolic Blood Pressure 67.00 mm[Hg] SatJun 11 08:05:57 EST 2023 Heart Rate 72.00 /min SatJun 11 08:05 :57 EST 2023 Pulse Oximetry 93.00 % SatJun 11 08:05 :57 EST 2023 Systolic Blood Pressure 153.00 mm[Hg] SatJun 10 21:22:17 EST 2023 Diastolic Blood Pressure 86.00 mm[Hg] SatJun 10 21:22:17 EST 4 Systolic Blood Pressure 153.00 mm[Hg] SatJun 10 21:22:17 EST 2023 Diastolic Blood Pressure 86.00 mm[Hg] SatJun 10 21:22:17 EST 4 Systolic Blood Pressure 156.00 mm[Hg] SatJun 10 13:20:36 EST 4 Diastolic Blood Pressure 90.00 mm[Hg] SatJun 10 13:20:36 EST 2024 Systolic Blood Pressure 146.00 mm[Hg] SatJun 10 10:37:52 EST 202 Diastolic Blood Pressure 57.00 mm[Hg] SatJun 10 10:37:52 EST 4 Systolic Blood Pressure 146.00 mm[Hg] SatJun 10 10:37:52 EST 4 Diastolic Blood Pressure 57.00 mm[Hg] SatJun 10 10:37:52 EST 4 Systolic Blood Pressure 146.00 mm[Hg] SatJun 10 10:37:52 EST 4 Diastolic Blood Pressure 57.00 mm[Hg] SatJun 10 10:37:52 EST 2023 Systolic Blood Pressure 146.00 mm[Hg] SatJun 10 10:31:13 EST 2023 Diastolic Blood Pressure 57.00 mm[Hg] SatJun 10 10:31:13 EST 2023 Pulse Oximetry 96.00 % SatJun 10 10:31 :13 EST 2023 Heart Rate 91.00 /min SatJun 10 10:31 :13 EST 2023 Body temperature 97.40 [degF] SatJun 10 10:3 1:13 EST 4 Respiratory rate 18.00 /min SatJun 10 10:3 1:13 EST 4 Systolic Blood Pressure 141.00 mm[Hg] SatJun 09 20:49:19 EST 2023 Diastolic Blood Pressure 86.00 mm[Hg] SatJun 09 20:49:19 EST 2023 Systolic Blood Pressure 141.00 mm[Hg] SatJun 09 20:49:19 EST 2023 Diastolic Blood Pressure 86.00 mm[Hg] SatJun 09 20:49:19 EST 2023 Body weight 239.90 [lb_av] SatJun 09 14:21 :21 EST 2023 Systolic Blood Pressure 138.00 mm[Hg] SatJun 09 13:44:01 EST 2023 Diastolic Blood Pressure 84.00 mm[Hg] SatJun 09 13:44:01 EST 2023 Systolic Blood Pressure 139.00 mm[Hg] SatJun 09 11:13:33 EST 4 Diastolic Blood Pressure 74.00 mm[Hg] SatJun 09 11:13:33 EST 2023 Systolic Blood Pressure 139.00 mm[Hg] SatJun 09 11:13:33 EST 2023 Diastolic Blood Pressure 74.00 mm[Hg] SatJun 09 11:13:33 EST 4 Systolic Blood Pressure 139.00 mm[Hg] SatJun 09 11:13:33 EST 2023 Diastolic Blood Pressure 74.00 mm[Hg] SatJun 09 11:13:33 EST 2023 Systolic Blood Pressure 153.00 mm[Hg] SatJun 08 20:32:47 EST 2023 Diastolic Blood Pressure 81.00 mm[Hg] SatJun 08 20:32:47 EST 2023 Systolic Blood Pressure 153.00 mm[Hg] SatJun 08 20:32:47 EST 2023 Diastolic Blood Pressure 81.00 mm[Hg] SatJun 08 20:32:47 EST 4 Systolic Blood Pressure 141.00 mm[Hg] SatJun 08 13:13:07 EST 2023 Diastolic Blood Pressure 82.00 mm[Hg] SatJun 08 13:13:07 EST 2023 Systolic Blood Pressure 141.00 mm[Hg] SatJun 08 11:34:04 EST 2023 Diastolic Blood Pressure 82.00 mm[Hg] SatJun 08 11:34:04 EST 202 Systolic Blood Pressure 141.00 mm[Hg] SatJun 08 11:34:04 EST 202 Diastolic Blood Pressure 82.00 mm[Hg] SatJun 08 11:34:04 EST 2023 Systolic Blood Pressure 141.00 mm[Hg] SatJun 08 11:34:04 EST 2023 Diastolic Blood Pressure 82.00 mm[Hg] SatJun 08 11:34:04 EST 2023 Systolic Blood Pressure 145.00 mm[Hg] SatJun 08 00:43:29 EST 2023 Diastolic Blood Pressure 78.00 mm[Hg] SatJun 08 00:43:29 EST 2023 Systolic Blood Pressure 145.00 mm[Hg] SatJun 08 00:43:29 EST 202 Diastolic Blood Pressure 78.00 mm[Hg] SatJun 08 00:43:29 EST 2024 Systolic Blood Pressure 144.00 mm[Hg] SatJun 07 13:24:16 EST 2023 Diastolic Blood Pressure 84.00 mm[Hg] SatJun 07 13:24:16 EST 2023 Systolic Blood Pressure 149.00 mm[Hg] SatJun 07 10:16:53 EST 2023 Diastolic Blood Pressure 82.00 mm[Hg] SatJun 07 10:16:53 EST 2023 Systolic Blood Pressure 149.00 mm[Hg] SatJun 07 10:16:53 EST 2023 Diastolic Blood Pressure 82.00 mm[Hg] SatJun 07 10:16:53 EST 2023 Systolic Blood Pressure 149.00 mm[Hg] SatJun 07 10:16:53 EST 2023 Diastolic Blood Pressure 82.00 mm[Hg] SatJun 07 10:16:53 EST 2023 Systolic Blood Pressure 112.00 mm[Hg] SatJun 07 08:13:20 EST 2023 Diastolic Blood Pressure 62.00 mm[Hg] SatJun 07 08:13:20 EST 2023 Pulse Oximetry 91.00 % SatJun 07 08:13 :20 EST 2023 Heart Rate 69.00 /min SatJun 07 08:13 :20 EST 2023 Systolic Blood Pressure 142.00 mm[Hg] Sat Jun 06 23:31:43 EST 2023 Diastolic Blood Pressure 81.00 mm[Hg] Sat Jun 06 23:31:43 EST 2023 Systolic Blood Pressure 142.00 mm[Hg] Sat Jun 06 23:31:43 EST 2023 Diastolic Blood Pressure 81.00 mm[Hg] Sat Jun 06 23:31:43 EST 2023 Systolic Blood Pressure 128.00 mm[Hg] Sat Jun 06 13:18:47 EST 2023 Diastolic Blood Pressure 72.00 mm[Hg] Sat Jun 06 13:18:47 EST 2023 Systolic Blood Pressure 130.00 mm[Hg] Sat Jun 06 10:45:18 EST 2023 Diastolic Blood Pressure 73.00 mm[Hg] Sat Jun 06 10:45:18 EST 2023 Systolic Blood Pressure 130.00 mm[Hg] Sat Jun 06 10:45:18 EST 2023 Diastolic Blood Pressure 73.00 mm[Hg] Sat Jun 06 10:45:18 EST 2023 Systolic Blood Pressure 130.00 mm[Hg] SatJun 06 10:45:18 EST 2023 Diastolic Blood Pressure 73.00 mm[Hg] Sat Jun 06 10:45:18 EST 2023 Systolic Blood Pressure 130.00 mm[Hg] SatJun 06 08:19:50 EST 2023 Diastolic Blood Pressure 73.00 mm[Hg] SatJun 06 08:19:50 EST 2023 Heart Rate 81.00 /min SatJun 06 08:19 :50 EST 2023 Systolic Blood Pressure 126.00 mm[Hg] SatJun 05 20:59:05 EST 2023 Diastolic Blood Pressure 78.00 mm[Hg] SatJun 05 20:59:05 EST 2023 Systolic Blood Pressure 126.00 mm[Hg] SatJun 05 20:59:05 EST 2023 Diastolic Blood Pressure 78.00 mm[Hg] SatJun 05 20:59:05 EST 2023 Systolic Blood Pressure 134.00 mm[Hg] SatJun 05 13:36:12 EST 2023 Diastolic Blood Pressure 85.00 mm[Hg] SatJun 05 13:36:12 EST 2023 Systolic Blood Pressure 119.00 mm[Hg] SatJun 05 09:15:49 EST 2023 Diastolic Blood Pressure 66.00 mm[Hg] SatJun 05 09:15:49 EST 2023 Systolic Blood Pressure 119.00 mm[Hg] SatJun 05 09:15:49 EST 2023 Diastolic Blood Pressure 66.00 mm[Hg] SatJun 05 09:15:49 EST 2023 Systolic Blood Pressure 119.00 mm[Hg] SatJun 05 09:15:49 EST 2023 Diastolic Blood Pressure 66.00 mm[Hg] SatJun 05 09:15:49 EST 2023 Systolic Blood Pressure 119.00 mm[Hg] SatJun 05 07:47:39 EST 2023 Diastolic Blood Pressure 66.00 mm[Hg] SatJun 05 07:47:39 EST 2023 Pulse Oximetry 97.00 % SatJun 05 07:47 :39 EST 2023 Heart Rate 67.00 /min SatJun 05 07:47 :39 EST 2023 Systolic Blood Pressure 142.00 mm[Hg] SatJun 04 20:43:50 EST 2023 Diastolic Blood Pressure 76.00 mm[Hg] SatJun 04 20:43:50 EST 2023 Systolic Blood Pressure 142.00 mm[Hg] SatJun 04 20:43:50 EST 2023 Diastolic Blood Pressure 76.00 mm[Hg] SatJun 04 20:43:50 EST 2023 Systolic Blood Pressure 150.00 mm[Hg] SatJun 04 12:55:51 EST 2023 Diastolic Blood Pressure 87.00 mm[Hg] SatJun 04 12:55:51 EST 2023 Systolic Blood Pressure 168.00 mm[Hg] SatJun 04 10:38:29 EST 2023 Diastolic Blood Pressure 88.00 mm[Hg] SatJun 04 10:38:29 EST 2023 Systolic Blood Pressure 168.00 mm[Hg] SatJun 04 10:38:29 EST 2023 Diastolic Blood Pressure 88.00 mm[Hg] SatJun 04 10:38:29 EST 2023 Systolic Blood Pressure 144.00 mm[Hg] SatJun 04 00:45:14 EST 2023 Diastolic Blood Pressure 82.00 mm[Hg] SatJun 04 00:45:14 EST 2023 Systolic Blood Pressure 144.00 mm[Hg] SatJun 04 00:45:14 EST 2023 Diastolic Blood Pressure 82.00 mm[Hg] SatJun 04 00:45:14 EST 4 Systolic Blood Pressure 146.00 mm[Hg] SatJun 03 12:47:58 EST 2023 Diastolic Blood Pressure 82.00 mm[Hg] SatJun 03 12:47:58 EST 2023 Systolic Blood Pressure 137.00 mm[Hg] SatJun 03 11:23:46 EST 2023 Diastolic Blood Pressure 73.00 mm[Hg] SatJun 03 11:23:46 EST 2023 Systolic Blood Pressure 137.00 mm[Hg] SatJun 03 11:23:46 EST 2023 Diastolic Blood Pressure 73.00 mm[Hg] SatJun 03 11:23:46 EST 2023 Systolic Blood Pressure 137.00 mm[Hg] SatJun 03 11:23:46 EST 2023 Diastolic Blood Pressure 73.00 mm[Hg] SatJun 03 11:23:46 EST 2024 Systolic Blood Pressure 137.00 mm[Hg] SatJun 03 08:43:29 EST 202 Diastolic Blood Pressure 73.00 mm[Hg] SatJun 03 08:43:29 EST 2023 Heart Rate 69.00 /min SatJun 03 08:43 :29 EST 2023 Body temperature 98.60 [degF] SatJun 03 08:4 3:29 EST 4 Respiratory rate 20.00 /min SatJun 03 08:4 3:29 EST 2023 Pulse Oximetry 96.00 % SatJun 03 08:43 :29 EST 2024 Systolic Blood Pressure 137.00 mm[Hg] SatJun 03 08:35:32 EST 202 Diastolic Blood Pressure 73.00 mm[Hg] SatJun 03 08:35:32 EST 2023 Pulse Oximetry 96.00 % SatJun 03 08:35 :32 EST 4 Respiratory rate 20.00 /min SatJun 03 08:3 5:32 EST 2023 Heart Rate 69.00 /min SatJun 03 08:35 :32 EST 2023 Body temperature 98.60 [degF] SatJun 03 08:3 5:32 EST 2024 Systolic Blood Pressure 144.00 mm[Hg] SatJun 02 20:48:21 EST 2023 Diastolic Blood Pressure 78.00 mm[Hg] SatJun 02 20:48:21 EST 2023 Systolic Blood Pressure 144.00 mm[Hg] SatJun 02 20:48:21 EST 2023 Diastolic Blood Pressure 78.00 mm[Hg] SatJun 02 20:48:21 EST 2023 Systolic Blood Pressure 134.00 mm[Hg] SatJun 02 13:40:59 EST 2023 Diastolic Blood Pressure 77.00 mm[Hg] SatJun 02 13:40:59 EST 2023 Systolic Blood Pressure 129.00 mm[Hg] SatJun 02 11:26:12 EST 2023 Diastolic Blood Pressure 80.00 mm[Hg] SatJun 02 11:26:12 EST 2023 Systolic Blood Pressure 129.00 mm[Hg] SatJun 02 11:26:12 EST 2023 Diastolic Blood Pressure 80.00 mm[Hg] SatJun 02 11:26:12 EST 2023 Systolic Blood Pressure 129.00 mm[Hg] SatJun 02 11:26:12 EST 2023 Diastolic Blood Pressure 80.00 mm[Hg] SatJun 02 11:26:12 EST 2023 Systolic Blood Pressure 132.00 mm[Hg] SatJun 01 20:56:22 EST 2023 Diastolic Blood Pressure 78.00 mm[Hg] SatJun 01 20:56:22 EST 2023 Systolic Blood Pressure 132.00 mm[Hg] SatJun 01 20:56:22 EST 2023 Diastolic Blood Pressure 78.00 mm[Hg] SatJun 01 20:56:22 EST 2023 Systolic Blood Pressure 144.00 mm[Hg] SatJun 01 13:39:50 EST 2023 Diastolic Blood Pressure 74.00 mm[Hg] SatJun 01 13:39:50 EST 2023 Systolic Blood Pressure 174.00 mm[Hg] SatJun 01 11:24:49 EST 2023 Diastolic Blood Pressure 96.00 mm[Hg] SatJun 01 11:24:49 EST 2023 Systolic Blood Pressure 174.00 mm[Hg] SatJun 01 11:24:49 EST 2023 Diastolic Blood Pressure 96.00 mm[Hg] SatJun 01 11:24:49 EST 2023 Systolic Blood Pressure 174.00 mm[Hg] SatJun 01 11:24:49 EST 2023 Diastolic Blood Pressure 96.00 mm[Hg] SatJun 01 11:24:49 EST 2023 Systolic Blood Pressure 155.00 mm[Hg] SatMay 31 20:53:59 EST 2023 Diastolic Blood Pressure 84.00 mm[Hg] SatMay 31 20:53:59 EST 2023 Systolic Blood Pressure 155.00 mm[Hg] SatMay 31 20:53:59 EST 2023 Diastolic Blood Pressure 84.00 mm[Hg] SatMay 31 20:53:59 EST 2023 Systolic Blood Pressure 134.00 mm[Hg] SatMay 31 12:58:25 EST 2023 Diastolic Blood Pressure 84.00 mm[Hg] SatMay 31 12:58:25 EST 2023 Systolic Blood Pressure 117.00 mm[Hg] SatMay 31 09:17:02 EST 2023 Diastolic Blood Pressure 66.00 mm[Hg] SatMay 31 09:17:02 EST 2023 Heart Rate 73.00 /min SatMay 31 09:17 :02 EST 2023 Systolic Blood Pressure 136.00 mm[Hg] SatMay 31 09:03:04 EST 2023 Diastolic Blood Pressure 74.00 mm[Hg] SatMay 31 09:03:04 EST 2023 Systolic Blood Pressure 136.00 mm[Hg] SatMay 31 09:03:04 EST 2023 Diastolic Blood Pressure 74.00 mm[Hg] SatMay 31 09:03:04 EST 2023 Systolic Blood Pressure 136.00 mm[Hg] SatMay 31 09:03:04 EST 2023 Diastolic Blood Pressure 74.00 mm[Hg] SatMay 31 09:03:04 EST 2023 Systolic Blood Pressure 128.00 mm[Hg] SatMay 30 21:04:11 EST 2023 Diastolic Blood Pressure 72.00 mm[Hg] SatMay 30 21:04:11 EST 2023 Systolic Blood Pressure 128.00 mm[Hg] SatMay 30 21:04:11 EST 2023 Diastolic Blood Pressure 72.00 mm[Hg] SatMay 30 21:04:11 EST 2023 Systolic Blood Pressure 136.00 mm[Hg] SatMay 30 12:48:06 EST 2023 Diastolic Blood Pressure 87.00 mm[Hg] SatMay 30 12:48:06 EST 2023 Systolic Blood Pressure 131.00 mm[Hg] SatMay 30 10:11:57 EST 2023 Diastolic Blood Pressure 87.00 mm[Hg] SatMay 30 10:11:57 EST 2023 Systolic Blood Pressure 131.00 mm[Hg] SatMay 30 10:11:57 EST 2023 Diastolic Blood Pressure 87.00 mm[Hg] SatMay 30 10:11:57 EST 2023 Systolic Blood Pressure 131.00 mm[Hg] SatMay 30 10:11:57 EST 2023 Diastolic Blood Pressure 87.00 mm[Hg] SatMay 30 10:11:57 EST 2023 Systolic Blood Pressure 133.00 mm[Hg] SatMay 29 23:18:05 EST 2023 Diastolic Blood Pressure 83.00 mm[Hg] SatMay 29 23:18:05 EST 2023 Systolic Blood Pressure 133.00 mm[Hg] SatMay 29 23:18:05 EST 2023 Diastolic Blood Pressure 83.00 mm[Hg] SatMay 29 23:18:05 EST 2023 Systolic Blood Pressure 121.00 mm[Hg] SatMay 29 14:47:08 EST 2023 Diastolic Blood Pressure 81.00 mm[Hg] SatMay 29 14:47:08 EST 2023 Systolic Blood Pressure 142.00 mm[Hg] SatMay 29 10:04:55 EST 2023 Diastolic Blood Pressure 75.00 mm[Hg] SatMay 29 10:04:55 EST 2023 Systolic Blood Pressure 142.00 mm[Hg] SatMay 29 10:04:55 EST 2023 Diastolic Blood Pressure 75.00 mm[Hg] SatMay 29 10:04:55 EST 2023 Systolic Blood Pressure 142.00 mm[Hg] SatMay 29 10:04:55 EST 2023 Diastolic Blood Pressure 75.00 mm[Hg] SatMay 29 10:04:55 2023 Systolic Blood Pressure 150.00 mm[Hg] SatMay 28 23:39:43 EST 2023 Diastolic Blood Pressure 87.00 mm[Hg] SatMay 28 23:39:43 EST 2023 Systolic Blood Pressure 150.00 mm[Hg] SatMay 28 23:39:43 2023 Diastolic Blood Pressure 87.00 mm[Hg] SatMay 28 23:39:43 EST 2023 Systolic Blood Pressure 115.00 mm[Hg] SatMay 28 13:23:13 EST 2023 Diastolic Blood Pressure 80.00 mm[Hg] SatMay 28 13:23:13 2023 Systolic Blood Pressure 107.00 mm[Hg] SatMay 28 10:12:31 EST 2023 Diastolic Blood Pressure 77.00 mm[Hg] SatMay 28 10:12:31 EST 2023 Systolic Blood Pressure 107.00 mm[Hg] SatMay 28 10:12:31 EST 2023 Diastolic Blood Pressure 77.00 mm[Hg] SatMay 28 10:12:31 EST 2023 Systolic Blood Pressure 107.00 mm[Hg] SatMay 28 10:12:31 EST 2023 Diastolic Blood Pressure 77.00 mm[Hg] SatMay 28 10:12:31 EST 2023 Systolic Blood Pressure 107.00 mm[Hg] SatMay 28 09:20:39 EST 2023 Diastolic Blood Pressure 77.00 mm[Hg] SatMay 28 09:20:39 EST 2023 Pulse Oximetry 95.00 % SatMay 28 09:20 :39 EST 2023 Heart Rate 65.00 /min SatMay 28 09:20 :39 EST 2023 Systolic Blood Pressure 131.00 mm[Hg] SatMay 27 20:47:50 EST 2023 Diastolic Blood Pressure 75.00 mm[Hg] SatMay 27 20:47:50 EST 2023 Systolic Blood Pressure 131.00 mm[Hg] SatMay 27 20:47:50 EST 2023 Diastolic Blood Pressure 75.00 mm[Hg] SatMay 27 20:47:50 EST 2023 Systolic Blood Pressure 141.00 mm[Hg] SatMay 27 14:46:54 EST 2023 Diastolic Blood Pressure 87.00 mm[Hg] SatMay 27 14:46:54 EST 2023 Systolic Blood Pressure 141.00 mm[Hg] SatMay 27 14:46:54 EST 2023 Diastolic Blood Pressure 87.00 mm[Hg] SatMay 27 14:46:54 EST 2023 Pulse Oximetry 94.00 % SatMay 27 14:46 :54 EST 2023 Heart Rate 94.00 /min SatMay 27 14:46 :54 EST 2023 Body temperature 96.60 [degF] SatMay 27 14:4 6:54 EST 2023 Respiratory rate 22.00 /min SatMay 27 14:4 6:54 EST 2023 Systolic Blood Pressure 127.00 mm[Hg] SatMay 27 11:30:10 EST 2023 Diastolic Blood Pressure 75.00 mm[Hg] SatMay 27 11:30:10 EST 2023 Systolic Blood Pressure 127.00 mm[Hg] SatMay 27 11:30:10 EST 2023 Diastolic Blood Pressure 75.00 mm[Hg] SatMay 27 11:30:10 EST 2023 Systolic Blood Pressure 127.00 mm[Hg] SatMay 27 11:30:10 EST 202 Diastolic Blood Pressure 75.00 mm[Hg] SatMay 27 11:30:10 EST 202 Systolic Blood Pressure 148.00 mm[Hg] SatMay 26 20:30:02 EST 2023 Diastolic Blood Pressure 76.00 mm[Hg] SatMay 26 20:30:02 EST 2023 Systolic Blood Pressure 148.00 mm[Hg] SatMay 26 20:30:02 EST 2023 Diastolic Blood Pressure 76.00 mm[Hg] SatMay 26 20:30:02 EST 2023 Systolic Blood Pressure 152.00 mm[Hg] SatMay 26 14:59:37 EST 2023 Diastolic Blood Pressure 88.00 mm[Hg] SatMay 26 14:59:37 EST 202 Systolic Blood Pressure 147.00 mm[Hg] SatMay 26 10:53:34 EST 2023 Diastolic Blood Pressure 81.00 mm[Hg] SatMay 26 10:53:34 EST 2023 Systolic Blood Pressure 147.00 mm[Hg] SatMay 26 10:53:34 EST 202 Diastolic Blood Pressure 81.00 mm[Hg] SatMay 26 10:53:34 EST 202 Systolic Blood Pressure 147.00 mm[Hg] SatMay 26 10:53:34 EST 2023 Diastolic Blood Pressure 81.00 mm[Hg] SatMay 26 10:53:34 EST 2023 Systolic Blood Pressure 147.00 mm[Hg] SatMay 26 08:25:46 EST 2023 Diastolic Blood Pressure 81.00 mm[Hg] SatMay 26 08:25:46 EST 2023 Heart Rate 70.00 /min SatMay 26 08:25 :46 EST 2023 Systolic Blood Pressure 129.00 mm[Hg] SatMay 25 23:47:35 EST 2023 Diastolic Blood Pressure 76.00 mm[Hg] SatMay 25 23:47:35 EST 2023 Systolic Blood Pressure 129.00 mm[Hg] SatMay 25 23:47:35 EST 2023 Diastolic Blood Pressure 76.00 mm[Hg] SatMay 25 23:47:35 EST 2023 Systolic Blood Pressure 131.00 mm[Hg] SatMay 25 14:16:13 EST 2023 Diastolic Blood Pressure 71.00 mm[Hg] SatMay 25 14:16:13 EST 4 Systolic Blood Pressure 135.00 mm[Hg] SatMay 25 10:41:55 EST 2023 Diastolic Blood Pressure 74.00 mm[Hg] SatMay 25 10:41:55 EST 2023 Systolic Blood Pressure 135.00 mm[Hg] SatMay 25 10:41:55 EST 2023 Diastolic Blood Pressure 74.00 mm[Hg] SatMay 25 10:41:55 EST 2023 Systolic Blood Pressure 135.00 mm[Hg] SatMay 25 10:41:55 EST 2023 Diastolic Blood Pressure 74.00 mm[Hg] SatMay 25 10:41:55 EST 2023 Systolic Blood Pressure 145.00 mm[Hg] SatMay 25 00:54:49 EST 2023 Diastolic Blood Pressure 89.00 mm[Hg] SatMay 25 00:54:49 EST 2023 Systolic Blood Pressure 145.00 mm[Hg] SatMay 25 00:54:49 EST 2023 Diastolic Blood Pressure 89.00 mm[Hg] SatMay 25 00:54:49 EST 2023 Systolic Blood Pressure 146.00 mm[Hg] SatMay 24 13:16:31 EST 2023 Diastolic Blood Pressure 76.00 mm[Hg] SatMay 24 13:16:31 EST 202 Systolic Blood Pressure 126.00 mm[Hg] SatMay 24 11:16:53 EST 2023 Diastolic Blood Pressure 72.00 mm[Hg] SatMay 24 11:16:53 EST 2023 Systolic Blood Pressure 126.00 mm[Hg] SatMay 24 11:16:53 EST 2023 Diastolic Blood Pressure 72.00 mm[Hg] SatMay 24 11:16:53 EST 2023 Systolic Blood Pressure 126.00 mm[Hg] SatMay 24 11:16:53 EST 2023 Diastolic Blood Pressure 72.00 mm[Hg] SatMay 24 11:16:53 EST 2023 Systolic Blood Pressure 125.00 mm[Hg] SatMay 24 08:10:43 EST 2023 Diastolic Blood Pressure 70.00 mm[Hg] SatMay 24 08:10:43 EST 2023 Heart Rate 78.00 /min SatMay 24 08:10 :43 EST 2023 Systolic Blood Pressure 152.00 mm[Hg] SatMay 23 21:06:04 EST 2023 Diastolic Blood Pressure 77.00 mm[Hg] SatMay 23 21:06:04 EST 2023 Systolic Blood Pressure 152.00 mm[Hg] SatMay 23 21:06:04 EST 2023 Diastolic Blood Pressure 77.00 mm[Hg] SatMay 23 21:06:04 EST 2023 Systolic Blood Pressure 125.00 mm[Hg] SatMay 23 16:07:35 EST 2023 Diastolic Blood Pressure 73.00 mm[Hg] SatMay 23 16:07:35 EST 2023 Systolic Blood Pressure 154.00 mm[Hg] SatMay 23 11:35:28 EST 2023 Diastolic Blood Pressure 87.00 mm[Hg] SatMay 23 11:35:28 EST 2023 Systolic Blood Pressure 154.00 mm[Hg] SatMay 23 11:35:28 EST 2023 Diastolic Blood Pressure 87.00 mm[Hg] SatMay 23 11:35:28 EST 2023 Systolic Blood Pressure 154.00 mm[Hg] SatMay 23 11:35:28 EST 2023 Diastolic Blood Pressure 87.00 mm[Hg] SatMay 23 11:35:28 EST 2023 Systolic Blood Pressure 167.00 mm[Hg] SatMay 22 20:57:42 EST 2023 Diastolic Blood Pressure 86.00 mm[Hg] SatMay 22 20:57:42 EST 2023 Systolic Blood Pressure 167.00 mm[Hg] SatMay 22 20:57:42 EST 2023 Diastolic Blood Pressure 86.00 mm[Hg] SatMay 22 20:57:42 EST 2023 Systolic Blood Pressure 182.00 mm[Hg] SatMay 22 14:08:11 EST 2023 Diastolic Blood Pressure 98.00 mm[Hg] SatMay 22 14:08:11 EST 2023 Systolic Blood Pressure 145.00 mm[Hg] SatMay 22 10:54:34 EST 2023 Diastolic Blood Pressure 69.00 mm[Hg] SatMay 22 10:54:34 EST 2023 Systolic Blood Pressure 145.00 mm[Hg] SatMay 22 10:54:34 EST 2023 Diastolic Blood Pressure 69.00 mm[Hg] SatMay 22 10:54:34 EST 2023 Systolic Blood Pressure 145.00 mm[Hg] SatMay 22 10:54:34 EST 2023 Diastolic Blood Pressure 69.00 mm[Hg] SatMay 22 10:54:34 EST 2023 Systolic Blood Pressure 135.00 mm[Hg] SatMay 21 20:47:56 EST 2023 Diastolic Blood Pressure 74.00 mm[Hg] SatMay 21 20:47:56 EST 2023 Systolic Blood Pressure 135.00 mm[Hg] SatMay 21 20:47:56 EST 2023 Diastolic Blood Pressure 74.00 mm[Hg] SatMay 21 20:47:56 EST 2023 Systolic Blood Pressure 127.00 mm[Hg] SatMay 21 13:21:07 EST 2023 Diastolic Blood Pressure 69.00 mm[Hg] SatMay 21 13:21:07 EST 2023 Systolic Blood Pressure 127.00 mm[Hg] SatMay 21 10:36:01 EST 2023 Diastolic Blood Pressure 69.00 mm[Hg] SatMay 21 10:36:01 EST 2023 Systolic Blood Pressure 127.00 mm[Hg] SatMay 21 10:36:01 EST 2023 Diastolic Blood Pressure 69.00 mm[Hg] SatMay 21 10:36:01 EST 2023 Systolic Blood Pressure 127.00 mm[Hg] SatMay 21 10:36:01 EST 2023 Diastolic Blood Pressure 69.00 mm[Hg] SatMay 21 10:36:01 EST 2023 Systolic Blood Pressure 149.00 mm[Hg] SatMay 20 20:46:54 EST 2023 Diastolic Blood Pressure 80.00 mm[Hg] SatMay 20 20:46:54 EST 2023 Systolic Blood Pressure 149.00 mm[Hg] SatMay 20 20:46:54 EST 2023 Diastolic Blood Pressure 80.00 mm[Hg] SatMay 20 20:46:54 EST 2023 Systolic Blood Pressure 120.00 mm[Hg] SatMay 20 15:01:40 EST 2023 Diastolic Blood Pressure 59.00 mm[Hg] SatMay 20 15:01:40 EST 2023 Pulse Oximetry 93.00 % SatMay 20 15:01 :40 EST 2023 Heart Rate 66.00 /min SatMay 20 15:01 :40 EST 2023 Body temperature 98.30 [degF] SatMay 20 15:0 1:40 EST 2023 Respiratory rate 20.00 /min SatMay 20 15:0 1:40 EST 2023 Systolic Blood Pressure 142.00 mm[Hg] SatMay 20 13:33:40 EST 2023 Diastolic Blood Pressure 80.00 mm[Hg] SatMay 20 13:33:40 EST 2023 Systolic Blood Pressure 120.00 mm[Hg] SatMay 20 09:44:39 EST 2023 Diastolic Blood Pressure 59.00 mm[Hg] SatMay 20 09:44:39 EST 2023 Systolic Blood Pressure 120.00 mm[Hg] SatMay 20 09:44:39 EST 2023 Diastolic Blood Pressure 59.00 mm[Hg] SatMay 20 09:44:39 EST 2023 Systolic Blood Pressure 120.00 mm[Hg] SatMay 20 09:44:39 EST 2023 Diastolic Blood Pressure 59.00 mm[Hg] SatMay 20 09:44:39 EST 2023 Systolic Blood Pressure 138.00 mm[Hg] SatMay 19 21:16:38 EST 2023 Diastolic Blood Pressure 84.00 mm[Hg] SatMay 19 21:16:38 EST 2023 Systolic Blood Pressure 138.00 mm[Hg] SatMay 19 21:16:38 EST 2023 Diastolic Blood Pressure 84.00 mm[Hg] SatMay 19 21:16:38 EST 2023 Systolic Blood Pressure 134.00 mm[Hg] SatMay 19 17:09:21 EST 2023 Diastolic Blood Pressure 81.00 mm[Hg] SatMay 19 17:09:21 EST 2023 Systolic Blood Pressure 117.00 mm[Hg] SatMay 19 10:58:22 EST 2023 Diastolic Blood Pressure 73.00 mm[Hg] SatMay 19 10:58:22 EST 2023 Systolic Blood Pressure 117.00 mm[Hg] SatMay 19 10:58:22 EST 2023 Diastolic Blood Pressure 73.00 mm[Hg] SatMay 19 10:58:22 EST 2023 Systolic Blood Pressure 117.00 mm[Hg] SatMay 19 10:58:22 EST 2023 Diastolic Blood Pressure 73.00 mm[Hg] SatMay 19 10:58:22 EST 2023 Systolic Blood Pressure 136.00 mm[Hg] SatMay 18 20:48:02 EST 2023 Diastolic Blood Pressure 85.00 mm[Hg] SatMay 18 20:48:02 EST 2023 Systolic Blood Pressure 136.00 mm[Hg] SatMay 18 20:48:02 EST 2023 Diastolic Blood Pressure 85.00 mm[Hg] SatMay 18 20:48:02 EST 2023 Body weight 234.80 [lb_av] SatMay 18 16:41 :50 EST 2023 Systolic Blood Pressure 130.00 mm[Hg] SatMay 18 13:57:34 EST 2023 Diastolic Blood Pressure 76.00 mm[Hg] SatMay 18 13:57:34 EST 2023 Systolic Blood Pressure 109.00 mm[Hg] SatMay 18 13:07:18 EST 2023 Diastolic Blood Pressure 54.00 mm[Hg] SatMay 18 13:07:18 EST 2023 Systolic Blood Pressure 109.00 mm[Hg] SatMay 18 13:07:18 EST 2023 Diastolic Blood Pressure 54.00 mm[Hg] SatMay 18 13:07:18 EST 2023 Systolic Blood Pressure 109.00 mm[Hg] SatMay 18 13:07:18 EST 2023 Diastolic Blood Pressure 54.00 mm[Hg] SatMay 18 13:07:18 EST 2023 Systolic Blood Pressure 109.00 mm[Hg] SatMay 18 07:44:05 EST 2023 Diastolic Blood Pressure 54.00 mm[Hg] SatMay 18 07:44:05 EST 2023 Heart Rate 85.00 /min SatMay 18 07:44 :05 EST 2023 Pulse Oximetry 91.00 % SatMay 18 07:44 :05 EST 2023 Systolic Blood Pressure 147.00 mm[Hg] SatMay 17 20:40:16 EST 2023 Diastolic Blood Pressure 74.00 mm[Hg] SatMay 17 20:40:16 EST 2023 Systolic Blood Pressure 147.00 mm[Hg] SatMay 17 20:40:16 EST 2023 Diastolic Blood Pressure 74.00 mm[Hg] SatMay 17 20:40:16 EST 2023 Systolic Blood Pressure 142.00 mm[Hg] SatMay 17 13:45:44 EST 2023 Diastolic Blood Pressure 84.00 mm[Hg] SatMay 17 13:45:44 EST 2023 Systolic Blood Pressure 124.00 mm[Hg] SatMay 17 10:21:09 EST 2023 Diastolic Blood Pressure 94.00 mm[Hg] SatMay 17 10:21:09 EST 2023 Systolic Blood Pressure 124.00 mm[Hg] SatMay 17 10:21:09 EST 2023 Diastolic Blood Pressure 94.00 mm[Hg] SatMay 17 10:21:09 EST 2023 Systolic Blood Pressure 124.00 mm[Hg] SatMay 17 10:21:09 EST 2023 Diastolic Blood Pressure 94.00 mm[Hg] SatMay 17 10:21:09 EST 2023 Systolic Blood Pressure 145.00 mm[Hg] SatMay 16 20:48:36 EST 2023 Diastolic Blood Pressure 78.00 mm[Hg] SatMay 16 20:48:36 EST 2023 Systolic Blood Pressure 145.00 mm[Hg] SatMay 16 20:48:36 EST 2023 Diastolic Blood Pressure 78.00 mm[Hg] SatMay 16 20:48:36 EST 2023 Systolic Blood Pressure 134.00 mm[Hg] SatMay 16 13:56:27 EST 2023 Diastolic Blood Pressure 70.00 mm[Hg] SatMay 16 13:56:27 EST 2023 Systolic Blood Pressure 138.00 mm[Hg] SatMay 16 11:19:31 EST 2023 Diastolic Blood Pressure 69.00 mm[Hg] SatMay 16 11:19:31 EST 2023 Systolic Blood Pressure 138.00 mm[Hg] SatMay 16 11:19:31 EST 2023 Diastolic Blood Pressure 69.00 mm[Hg] SatMay 16 11:19:31 EST 2023 Systolic Blood Pressure 138.00 mm[Hg] SatMay 16 11:19:31 EST 2023 Diastolic Blood Pressure 69.00 mm[Hg] SatMay 16 11:19:31 EST 2023 Systolic Blood Pressure 138.00 mm[Hg] SatMay 16 09:27:48 EST 2023 Diastolic Blood Pressure 69.00 mm[Hg] SatMay 16 09:27:48 EST 2023 Heart Rate 77.00 /min SatMay 16 09:27 :48 EST 2023 Systolic Blood Pressure 143.00 mm[Hg] SatMay 15 23:02:21 EST 2023 Diastolic Blood Pressure 81.00 mm[Hg] SatMay 15 23:02:21 EST 2023 Systolic Blood Pressure 143.00 mm[Hg] SatMay 15 23:02:21 EST 2023 Diastolic Blood Pressure 81.00 mm[Hg] SatMay 15 23:02:21 EST 2023 Systolic Blood Pressure 149.00 mm[Hg] SatMay 15 13:58:38 EST 2023 Diastolic Blood Pressure 84.00 mm[Hg] SatMay 15 13:58:38 EST 2023 Systolic Blood Pressure 131.00 mm[Hg] SatMay 15 11:08:11 EST 2023 Diastolic Blood Pressure 77.00 mm[Hg] SatMay 15 11:08:11 EST 2023 Systolic Blood Pressure 131.00 mm[Hg] SatMay 15 11:08:11 EST 2023 Diastolic Blood Pressure 77.00 mm[Hg] SatMay 15 11:08:11 EST 2023 Systolic Blood Pressure 131.00 mm[Hg] SatMay 15 11:08:11 EST 2023 Diastolic Blood Pressure 77.00 mm[Hg] SatMay 15 11:08:11 EST 202 Systolic Blood Pressure 131.00 mm[Hg] SatMay 14 22:21:57 EST 202 Diastolic Blood Pressure 75.00 mm[Hg] SatMay 14 22:21:57 EST 2023 Systolic Blood Pressure 131.00 mm[Hg] SatMay 14 22:21:57 EST 2023 Diastolic Blood Pressure 75.00 mm[Hg] SatMay 14 22:21:57 EST 2023 Systolic Blood Pressure 131.00 mm[Hg] SatMay 14 15:52:14 EST 2023 Diastolic Blood Pressure 77.00 mm[Hg] SatMay 14 15:52:14 EST 2023 Systolic Blood Pressure 143.00 mm[Hg] SatMay 14 10:40:12 EST 2023 Diastolic Blood Pressure 84.00 mm[Hg] SatMay 14 10:40:12 EST 2023 Systolic Blood Pressure 143.00 mm[Hg] SatMay 14 10:40:12 EST 2023 Diastolic Blood Pressure 84.00 mm[Hg] SatMay 14 10:40:12 EST 2023 Systolic Blood Pressure 143.00 mm[Hg] SatMay 14 10:40:12 EST 2023 Diastolic Blood Pressure 84.00 mm[Hg] SatMay 14 10:40:12 EST 2023 Systolic Blood Pressure 161.00 mm[Hg] SatMay 13 22:43:00 EST 2023 Diastolic Blood Pressure 89.00 mm[Hg] SatMay 13 22:43:00 EST 2023 Heart Rate 68.00 /min SatMay 13 22:43 :00 EST 2023 Respiratory rate 16.00 /min SatMay 13 22:4 3:00 EST 2023 Pulse Oximetry 93.00 % SatMay 13 22:43 :00 EST 2023 Body temperature 97.70 [degF] SatMay 13 22:4 3:00 EST 2023 Systolic Blood Pressure 148.00 mm[Hg] SatMay 13 20:45:28 EST 2023 Diastolic Blood Pressure 76.00 mm[Hg] SatMay 13 20:45:28 EST 2023 Systolic Blood Pressure 148.00 mm[Hg] SatMay 13 20:45:28 EST 2023 Diastolic Blood Pressure 76.00 mm[Hg] SatMay 13 20:45:28 EST 2023 Systolic Blood Pressure 143.00 mm[Hg] SatMay 13 13:38:55 EST 2023 Diastolic Blood Pressure 76.00 mm[Hg] SatMay 13 13:38:55 EST 2023 Systolic Blood Pressure 162.00 mm[Hg] SatMay 13 11:57:55 EST 2023 Diastolic Blood Pressure 80.00 mm[Hg] SatMay 13 11:57:55 EST 2023 Heart Rate 93.00 /min SatMay 13 11:57 :55 EST 2023 Body temperature 98.00 [degF] SatMay 13 11:5 7:55 EST 2023 Respiratory rate 20.00 /min SatMay 13 11:5 7:55 EST 2023 Pulse Oximetry 95.00 % SatMay 13 11:57 :55 EST 2023 Systolic Blood Pressure 162.00 mm[Hg] SatMay 13 11:57:12 EST 2023 Diastolic Blood Pressure 80.00 mm[Hg] SatMay 13 11:57:12 EST 2024 Systolic Blood Pressure 162.00 mm[Hg] SatMay 13 11:57:12 EST 202 Diastolic Blood Pressure 80.00 mm[Hg] SatMay 13 11:57:12 EST 2024 Systolic Blood Pressure 162.00 mm[Hg] SatMay 13 11:57:12 EST 2024 Diastolic Blood Pressure 80.00 mm[Hg] SatMay 13 11:57:12 EST 2024 Systolic Blood Pressure 139.00 mm[Hg] SatMay 12 20:52:10 EST 202 Diastolic Blood Pressure 77.00 mm[Hg] SatMay 12 20:52:10 EST 202 Systolic Blood Pressure 139.00 mm[Hg] SatMay 12 20:52:10 EST 202 Diastolic Blood Pressure 77.00 mm[Hg] SatMay 12 20:52:10 EST 202 Systolic Blood Pressure 142.00 mm[Hg] SatMay 12 13:37:58 EST 202 Diastolic Blood Pressure 78.00 mm[Hg] SatMay 12 13:37:58 EST 202 Systolic Blood Pressure 143.00 mm[Hg] SatMay 12 10:15:27 EST 2023 Diastolic Blood Pressure 77.00 mm[Hg] SatMay 12 10:15:27 EST 202 Systolic Blood Pressure 143.00 mm[Hg] SatMay 12 10:15:27 EST 4 Diastolic Blood Pressure 77.00 mm[Hg] SatMay 12 10:15:27 EST 202 Systolic Blood Pressure 143.00 mm[Hg] SatMay 12 10:15:27 EST 2024 Diastolic Blood Pressure 77.00 mm[Hg] SatMay 12 10:15:27 EST 2024 Systolic Blood Pressure 155.00 mm[Hg] SatMay 12 00:27:22 EST 202 Diastolic Blood Pressure 90.00 mm[Hg] SatMay 12 00:27:22 EST 2024 Systolic Blood Pressure 155.00 mm[Hg] SatMay 12 00:27:22 EST 2024 Diastolic Blood Pressure 90.00 mm[Hg] SatMay 12 00:27:22 EST 4 Body weight 296.80 [lb_av] SatMay 11 13:07 :06 EST 202 Systolic Blood Pressure 156.00 mm[Hg] SatMay 11 13:03:27 EST 2023 Diastolic Blood Pressure 94.00 mm[Hg] SatMay 11 13:03:27 EST 2023 Systolic Blood Pressure 135.00 mm[Hg] SatMay 11 09:18:02 EST 2023 Diastolic Blood Pressure 82.00 mm[Hg] SatMay 11 09:18:02 EST 2023 Systolic Blood Pressure 135.00 mm[Hg] SatMay 11 09:18:02 EST 2023 Diastolic Blood Pressure 82.00 mm[Hg] SatMay 11 09:18:02 EST 202 Systolic Blood Pressure 135.00 mm[Hg] SatMay 11 09:18:02 EST 202 Diastolic Blood Pressure 82.00 mm[Hg] SatMay 11 09:18:02 EST 2023 Systolic Blood Pressure 135.00 mm[Hg] SatMay 11 07:33:53 EST 2023 Diastolic Blood Pressure 82.00 mm[Hg] SatMay 11 07:33:53 EST 2023 Heart Rate 71.00 /min SatMay 11 07:33 :53 EST 2023 Pulse Oximetry 93.00 % SatMay 11 07:33 :53 EST 2023 Systolic Blood Pressure 132.00 mm[Hg] SatMay 10 21:53:22 EST 2023 Diastolic Blood Pressure 80.00 mm[Hg] SatMay 10 21:53:22 EST 2023 Systolic Blood Pressure 132.00 mm[Hg] SatMay 10 21:53:22 EST 2023 Diastolic Blood Pressure 80.00 mm[Hg] SatMay 10 21:53:22 EST 2023 Systolic Blood Pressure 151.00 mm[Hg] SatMay 10 13:49:44 EST 2023 Diastolic Blood Pressure 79.00 mm[Hg] SatMay 10 13:49:44 EST 2023 Systolic Blood Pressure 137.00 mm[Hg] SatMay 10 10:49:10 EST 2023 Diastolic Blood Pressure 77.00 mm[Hg] SatMay 10 10:49:10 EST 2023 Systolic Blood Pressure 137.00 mm[Hg] SatMay 10 10:49:10 EST 2023 Diastolic Blood Pressure 77.00 mm[Hg] SatMay 10 10:49:10 EST 2023 Systolic Blood Pressure 137.00 mm[Hg] SatMay 10 10:49:10 EST 2023 Diastolic Blood Pressure 77.00 mm[Hg] SatMay 10 10:49:10 EST 2023 Systolic Blood Pressure 141.00 mm[Hg] SatMay 09 21:54:59 EST 2023 Diastolic Blood Pressure 79.00 mm[Hg] SatMay 09 21:54:59 EST 2023 Systolic Blood Pressure 141.00 mm[Hg] SatMay 09 21:54:59 EST 2023 Diastolic Blood Pressure 79.00 mm[Hg] SatMay 09 21:54:59 EST 2023 Systolic Blood Pressure 140.00 mm[Hg] SatMay 09 14:20:38 EST 2023 Diastolic Blood Pressure 77.00 mm[Hg] SatMay 09 14:20:38 EST 2023 Systolic Blood Pressure 148.00 mm[Hg] SatMay 09 11:40:37 EST 2023 Diastolic Blood Pressure 80.00 mm[Hg] SatMay 09 11:40:37 EST 2023 Systolic Blood Pressure 148.00 mm[Hg] SatMay 09 11:40:37 EST 2023 Diastolic Blood Pressure 80.00 mm[Hg] SatMay 09 11:40:37 EST 2023 Systolic Blood Pressure 148.00 mm[Hg] SatMay 09 11:40:37 EST 2023 Diastolic Blood Pressure 80.00 mm[Hg] SatMay 09 11:40:37 EST 2023 Systolic Blood Pressure 145.00 mm[Hg] SatMay 08 20:51:08 EST 2023 Diastolic Blood Pressure 76.00 mm[Hg] SatMay 08 20:51:08 EST 2023 Systolic Blood Pressure 145.00 mm[Hg] SatMay 08 20:51:08 EST 2023 Diastolic Blood Pressure 76.00 mm[Hg] SatMay 08 20:51:08 EST 2023 Systolic Blood Pressure 136.00 mm[Hg] SatMay 08 14:21:04 EST 2023 Diastolic Blood Pressure 84.00 mm[Hg] SatMay 08 14:21:04 EST 2023 Systolic Blood Pressure 186.00 mm[Hg] SatMay 08 11:04:12 EST 2023 Diastolic Blood Pressure 120.00 mm[Hg] SatMay 08 11:04:12 EST 2023 Systolic Blood Pressure 186.00 mm[Hg] SatMay 08 11:04:12 EST 2023 Diastolic Blood Pressure 120.00 mm[Hg] SatMay 08 11:04:12 EST 2023 Systolic Blood Pressure 186.00 mm[Hg] SatMay 08 11:04:12 EST 2023 Diastolic Blood Pressure 120.00 mm[Hg] SatMay 08 11:04:12 EST 2023 Systolic Blood Pressure 138.00 mm[Hg] SatMay 07 20:32:48 EST 2023 Diastolic Blood Pressure 77.00 mm[Hg] SatMay 07 20:32:48 EST 2023 Systolic Blood Pressure 138.00 mm[Hg] SatMay 07 20:32:48 EST 2023 Diastolic Blood Pressure 77.00 mm[Hg] SatMay 07 20:32:48 EST 2023 Systolic Blood Pressure 142.00 mm[Hg] SatMay 07 13:29:07 EST 2023 Diastolic Blood Pressure 79.00 mm[Hg] SatMay 07 13:29:07 EST 2023 Systolic Blood Pressure 138.00 mm[Hg] SatMay 07 09:42:41 EST 2023 Diastolic Blood Pressure 71.00 mm[Hg] SatMay 07 09:42:41 EST 2023 Systolic Blood Pressure 138.00 mm[Hg] SatMay 07 09:42:41 EST 2023 Diastolic Blood Pressure 71.00 mm[Hg] SatMay 07 09:42:41 EST 2023 Systolic Blood Pressure 138.00 mm[Hg] SatMay 07 09:42:41 EST 2023 Diastolic Blood Pressure 71.00 mm[Hg] SatMay 07 09:42:41 EST 2023 Systolic Blood Pressure 138.00 mm[Hg] SatMay 07 08:21:53 EST 2023 Diastolic Blood Pressure 71.00 mm[Hg] SatMay 07 08:21:53 EST 2023 Pulse Oximetry 94.00 % SatMay 07 08:21 :53 EST 2023 Respiratory rate 18.00 /min SatMay 07 08:2 1:53 EST 2023 Body temperature 97.90 [degF] SatMay 07 08:2 1:53 EST 2023 Heart Rate 79.00 /min SatMay 07 08:21 :53 EST 2023 Systolic Blood Pressure 149.00 mm[Hg] SatMay 06 23:29:02 EST 2023 Diastolic Blood Pressure 82.00 mm[Hg] SatMay 06 23:29:02 EST 2023 Systolic Blood Pressure 149.00 mm[Hg] SatMay 06 23:29:02 EST 2023 Diastolic Blood Pressure 82.00 mm[Hg] SatMay 06 23:29:02 EST 2023 Systolic Blood Pressure 151.00 mm[Hg] SatMay 06 16:06:18 EST 2023 Diastolic Blood Pressure 91.00 mm[Hg] SatMay 06 16:06:18 EST 4 Heart Rate 63.00 /min SatMay 06 16:06 :18 EST 4 Body temperature 98.10 [degF] SatMay 06 16:0 6:18 EST 2023 Respiratory rate 20.00 /min SatMay 06 16:0 6:18 EST 2023 Pulse Oximetry 95.00 % SatMay 06 16:06 :18 EST 4 Systolic Blood Pressure 145.00 mm[Hg] SatMay 06 14:50:15 EST 2024 Diastolic Blood Pressure 80.00 mm[Hg] SatMay 06 14:50:15 EST 2024 Systolic Blood Pressure 151.00 mm[Hg] SatMay 06 10:45:33 EST 2023 Diastolic Blood Pressure 91.00 mm[Hg] SatMay 06 10:45:33 EST 202 Systolic Blood Pressure 151.00 mm[Hg] SatMay 06 10:45:33 EST 202 Diastolic Blood Pressure 91.00 mm[Hg] SatMay 06 10:45:33 EST 202 Systolic Blood Pressure 151.00 mm[Hg] SatMay 06 10:45:33 EST 202 Diastolic Blood Pressure 91.00 mm[Hg] SatMay 06 10:45:33 EST 2024 Systolic Blood Pressure 129.00 mm[Hg] SatMay 05 20:42:08 EST 2023 Diastolic Blood Pressure 89.00 mm[Hg] SatMay 05 20:42:08 EST 2023 Systolic Blood Pressure 129.00 mm[Hg] SatMay 05 20:42:08 EST 2023 Diastolic Blood Pressure 89.00 mm[Hg] SatMay 05 20:42:08 EST 2023 Systolic Blood Pressure 150.00 mm[Hg] SatMay 05 14:27:17 EST 2023 Diastolic Blood Pressure 88.00 mm[Hg] SatMay 05 14:27:17 EST 2023 Systolic Blood Pressure 152.00 mm[Hg] SatMay 05 09:53:30 EST 2023 Diastolic Blood Pressure 93.00 mm[Hg] SatMay 05 09:53:30 EST 2023 Systolic Blood Pressure 152.00 mm[Hg] SatMay 05 09:53:30 EST 2023 Diastolic Blood Pressure 93.00 mm[Hg] SatMay 05 09:53:30 EST 2023 Systolic Blood Pressure 152.00 mm[Hg] SatMay 05 09:53:30 EST 2023 Diastolic Blood Pressure 93.00 mm[Hg] SatMay 05 09:53:30 EST 2023 Systolic Blood Pressure 132.00 mm[Hg] SatMay 04 20:46:32 EST 2023 Diastolic Blood Pressure 78.00 mm[Hg] SatMay 04 20:46:32 EST 2023 Systolic Blood Pressure 132.00 mm[Hg] SatMay 04 20:46:32 EST 2023 Diastolic Blood Pressure 78.00 mm[Hg] SatMay 04 20:46:32 EST 2023 Body weight 169.80 [lb_av] SatMay 04 15:43 :39 EST 2023 Systolic Blood Pressure 147.00 mm[Hg] SatMay 04 13:33:00 EST 2023 Diastolic Blood Pressure 80.00 mm[Hg] SatMay 04 13:33:00 EST 2023 Systolic Blood Pressure 143.00 mm[Hg] SatMay 04 10:46:47 EST 2023 Diastolic Blood Pressure 80.00 mm[Hg] SatMay 04 10:46:47 EST 2023 Systolic Blood Pressure 143.00 mm[Hg] SatMay 04 10:46:47 EST 2023 Diastolic Blood Pressure 80.00 mm[Hg] SatMay 04 10:46:47 EST 2023 Systolic Blood Pressure 143.00 mm[Hg] SatMay 04 10:46:47 EST 2023 Diastolic Blood Pressure 80.00 mm[Hg] SatMay 04 10:46:47 EST 2023 Systolic Blood Pressure 142.00 mm[Hg] SatMay 04 04:34:00 EST 2023 Diastolic Blood Pressure 73.00 mm[Hg] SatMay 04 04:34:00 EST 2023 Heart Rate 88.00 /min SatMay 04 04:34 :00 2023 Respiratory rate 18.00 /min SatMay 04 04:3 4:00 EST 2023 Pulse Oximetry 98.00 % SatMay 04 04:34 :00 EST 2023 Body temperature 98.10 [degF] SatMay 04 04:3 4:00 EST 2023 Systolic Blood Pressure 134.00 mm[Hg] SatMay 03 20:39:22 EST 2023 Diastolic Blood Pressure 73.00 mm[Hg] SatMay 03 20:39:22 EST 2023 Systolic Blood Pressure 134.00 mm[Hg] SatMay 03 20:39:22 EST 2023 Diastolic Blood Pressure 73.00 mm[Hg] SatMay 03 20:39:22 EST 2023 Systolic Blood Pressure 144.00 mm[Hg] SatMay 03 12:41:20 EST 2023 Diastolic Blood Pressure 77.00 mm[Hg] SatMay 03 12:41:20 EST 2023 Systolic Blood Pressure 130.00 mm[Hg] SatMay 03 12:41:20 EST 2023 Diastolic Blood Pressure 84.00 mm[Hg] SatMay 03 12:41:20 EST 2023 Systolic Blood Pressure 130.00 mm[Hg] SatMay 03 12:41:20 EST 2023 Diastolic Blood Pressure 84.00 mm[Hg] SatMay 03 12:41:20 EST 2023 Systolic Blood Pressure 130.00 mm[Hg] SatMay 03 12:41:20 EST 2023 Diastolic Blood Pressure 84.00 mm[Hg] SatMay 03 12:41:20 EST 2023 Systolic Blood Pressure 136.00 mm[Hg] SatMay 02 20:44:26 EDT 2023 Diastolic Blood Pressure 78.00 mm[Hg] SatMay 02 20:44:26 EDT 2023 Systolic Blood Pressure 136.00 mm[Hg] SatMay 02 20:44:26 EDT 2023 Diastolic Blood Pressure 78.00 mm[Hg] SatMay 02 20:44:26 EDT 2023 Systolic Blood Pressure 127.00 mm[Hg] SatMay 02 13:22:07 EDT 2023 Diastolic Blood Pressure 65.00 mm[Hg] SatMay 02 13:22:07 EDT 2023 Systolic Blood Pressure 127.00 mm[Hg] SatMay 02 11:20:08 EDT 2023 Diastolic Blood Pressure 65.00 mm[Hg] SatMay 02 11:20:08 EDT 2023 Systolic Blood Pressure 127.00 mm[Hg] SatMay 02 11:20:08 EDT 2023 Diastolic Blood Pressure 65.00 mm[Hg] SatMay 02 11:20:08 EDT 2023 Systolic Blood Pressure 127.00 mm[Hg] SatMay 02 11:20:08 EDT 2023 Diastolic Blood Pressure 65.00 mm[Hg] SatMay 02 11:20:08 EDT 2023 Systolic Blood Pressure 127.00 mm[Hg] SatMay 02 07:51:38 EDT 2023 Diastolic Blood Pressure 65.00 mm[Hg] SatMay 02 07:51:38 EDT 2023 Heart Rate 72.00 /min SatMay 02 07:51 :38 EDT 2023 Systolic Blood Pressure 138.00 mm[Hg] SatMay 01 20:51:25 EDT 2024 Diastolic Blood Pressure 84.00 mm[Hg] SatMay 01 20:51:25 EDT 4 Systolic Blood Pressure 138.00 mm[Hg] SatMay 01 20:51:25 EDT 2023 Diastolic Blood Pressure 84.00 mm[Hg] SatMay 01 20:51:25 EDT 2023 Systolic Blood Pressure 148.00 mm[Hg] SatMay 01 14:07:25 EDT 2023 Diastolic Blood Pressure 84.00 mm[Hg] SatMay 01 14:07:25 EDT 2023 Systolic Blood Pressure 149.00 mm[Hg] SatMay 01 09:03:58 EDT 2023 Diastolic Blood Pressure 93.00 mm[Hg] SatMay 01 09:03:58 EDT 2023 Systolic Blood Pressure 149.00 mm[Hg] SatMay 01 09:03:58 EDT 2023 Diastolic Blood Pressure 93.00 mm[Hg] SatMay 01 09:03:58 EDT 2023 Systolic Blood Pressure 149.00 mm[Hg] SatMay 01 09:03:58 EDT 2023 Diastolic Blood Pressure 93.00 mm[Hg] SatMay 01 09:03:58 EDT 2023 Systolic Blood Pressure 144.00 mm[Hg] Samantha Oct 31 20:41:05 EDT 4 Diastolic Blood Pressure 71.00 mm[Hg] Samantha Oct 31 20:41:05 EDT 4 Systolic Blood Pressure 144.00 mm[Hg] Samantha Oct 31 20:41:05 EDT 4 Diastolic Blood Pressure 71.00 mm[Hg] Samantha Oct 31 20:41:05 EDT 4 Systolic Blood Pressure 139.00 mm[Hg] Samantha Oct 31 13:46:05 EDT 4 Diastolic Blood Pressure 85.00 mm[Hg] Samantha Oct 31 13:46:05 EDT 4 Systolic Blood Pressure 139.00 mm[Hg] Samantha Oct 31 10:43:28 EDT 4 Diastolic Blood Pressure 77.00 mm[Hg] Samantha Oct 31 10:43:28 EDT 4 Systolic Blood Pressure 139.00 mm[Hg] Samantha Oct 31 10:43:28 EDT 4 Diastolic Blood Pressure 77.00 mm[Hg] Samantha Oct 31 10:43:28 EDT 2023 Systolic Blood Pressure 139.00 mm[Hg] Samantha Oct 31 10:43:28 EDT 2024 Diastolic Blood Pressure 77.00 mm[Hg] Samantha Oct 31 10:43:28 EDT 2024 Systolic Blood Pressure 139.00 mm[Hg] Samantha Oct 31 07:46:58 EDT 2024 Diastolic Blood Pressure 77.00 mm[Hg] Samantha Oct 31 07:46:58 EDT 2023 Pulse Oximetry 94.00 % Samnatha Oct 31 07:46 :58 EDT 4 Heart Rate 85.00 /min Samantha Oct 31 07:46 :58 EDT 2024 Systolic Blood Pressure 112.00 mm[Hg] Samantha Oct 31 07:44:42 EDT 202 Diastolic Blood Pressure 64.00 mm[Hg] Samantha Oct 31 07:44:42 EDT 2023 Pulse Oximetry 95.00 % Samantha Oct 31 07:44 :42 EDT 2023 Heart Rate 82.00 /min Samantha Oct 31 07:44 :42 EDT 2023 Systolic Blood Pressure 145.00 mm[Hg] Wed Oct 30 20:51:06 EDT 2023 Diastolic Blood Pressure 72.00 mm[Hg] Wed Oct 30 20:51:06 EDT 2024 Systolic Blood Pressure 145.00 mm[Hg] Wed Oct 30 20:51:06 EDT 4 Diastolic Blood Pressure 72.00 mm[Hg] Wed Oct 30 20:51:06 EDT 4 Systolic Blood Pressure 130.00 mm[Hg] Wed Oct 30 15:53:10 EDT 4 Diastolic Blood Pressure 68.00 mm[Hg] Wed Oct 30 15:53:10 EDT 4 Heart Rate 68.00 /min Wed Oct 30 15:53 :10 EDT 4 Pulse Oximetry 96.00 % Wed Oct 30 15:53 :10 EDT 4 Respiratory rate 20.00 /min Wed Oct 30 15:5 3:10 EDT 4 Body temperature 97.40 [degF] Wed Oct 30 15:5 3:10 EDT 4 Systolic Blood Pressure 153.00 mm[Hg] Wed Oct 30 15:41:03 EDT 4 Diastolic Blood Pressure 87.00 mm[Hg] Wed Oct 30 15:41:03 EDT 4 Systolic Blood Pressure 130.00 mm[Hg] Wed Oct 30 11:18:38 EDT 4 Diastolic Blood Pressure 80.00 mm[Hg] Wed Oct 30 11:18:38 EDT 4 Systolic Blood Pressure 130.00 mm[Hg] Wed Oct 30 11:18:38 EDT 2024 Diastolic Blood Pressure 80.00 mm[Hg] Wed Oct 30 11:18:38 EDT 2024 Systolic Blood Pressure 130.00 mm[Hg] Wed Oct 30 11:18:38 EDT 4 Diastolic Blood Pressure 80.00 mm[Hg] Wed Oct 30 11:18:38 EDT 4 Systolic Blood Pressure 124.00 mm[Hg] Tue Oct 29 20:40:55 EDT 2024 Diastolic Blood Pressure 76.00 mm[Hg] Tue Oct 29 20:40:55 EDT 4 Systolic Blood Pressure 124.00 mm[Hg] Tue Oct 29 20:40:55 EDT 4 Diastolic Blood Pressure 76.00 mm[Hg] Tue Oct 29 20:40:55 EDT 4 Systolic Blood Pressure 130.00 mm[Hg] Tue Oct 29 13:14:52 EDT 4 Diastolic Blood Pressure 83.00 mm[Hg] Tue Oct 29 13:14:52 EDT 4 Systolic Blood Pressure 126.00 mm[Hg] Tue Oct 29 10:25:20 EDT 4 Diastolic Blood Pressure 86.00 mm[Hg] Tue Oct 29 10:25:20 EDT 2024 Systolic Blood Pressure 126.00 mm[Hg] Tue Oct 29 10:25:20 EDT 4 Diastolic Blood Pressure 86.00 mm[Hg] Tue Oct 29 10:25:20 EDT 4 Systolic Blood Pressure 126.00 mm[Hg] Tue Oct 29 10:25:20 EDT 4 Diastolic Blood Pressure 86.00 mm[Hg] Tue Oct 29 10:25:20 EDT 4 Systolic Blood Pressure 148.00 mm[Hg] Tue Oct 29 00:15:14 EDT 4 Diastolic Blood Pressure 79.00 mm[Hg] Tue Oct 29 00:15:14 EDT 4 Systolic Blood Pressure 148.00 mm[Hg] Tue Oct 29 00:15:14 EDT 4 Diastolic Blood Pressure 79.00 mm[Hg] Tue Oct 29 00:15:14 EDT 4 Systolic Blood Pressure 167.00 mm[Hg] Mon Oct 28 13:52:27 EDT 2023 Diastolic Blood Pressure 90.00 mm[Hg] Mon Oct 28 13:52:27 EDT 4 Systolic Blood Pressure 150.00 mm[Hg] Mon Oct 28 12:14:56 EDT 2024 Diastolic Blood Pressure 86.00 mm[Hg] Mon Oct 28 12:14:56 EDT 2024 Systolic Blood Pressure 150.00 mm[Hg] Mon Oct 28 12:14:56 EDT 2024 Diastolic Blood Pressure 86.00 mm[Hg] Mon Oct 28 12:14:56 EDT 2024 Systolic Blood Pressure 150.00 mm[Hg] Mon Oct 28 12:14:56 EDT 2024 Diastolic Blood Pressure 86.00 mm[Hg] Mon Oct 28 12:14:56 EDT 2024 Systolic Blood Pressure 159.00 mm[Hg] Sun Oct 27 23:31:19 EDT 2024 Diastolic Blood Pressure 92.00 mm[Hg] Sun Oct 27 23:31:19 EDT 2024 Systolic Blood Pressure 159.00 mm[Hg] Sun Oct 27 23:31:19 EDT 2024 Diastolic Blood Pressure 92.00 mm[Hg] Sun Oct 27 23:31:19 EDT 4 Systolic Blood Pressure 139.00 mm[Hg] Sun Oct 27 14:03:36 EDT 2024 Diastolic Blood Pressure 84.00 mm[Hg] Sun Oct 27 14:03:36 EDT 2024 Systolic Blood Pressure 130.00 mm[Hg] Sun Oct 27 10:26:23 EDT 2024 Diastolic Blood Pressure 66.00 mm[Hg] Sun Oct 27 10:26:23 EDT 2024 Systolic Blood Pressure 130.00 mm[Hg] Sun Oct 27 10:26:23 EDT 2024 Diastolic Blood Pressure 66.00 mm[Hg] Sun Oct 27 10:26:23 EDT 2024 Systolic Blood Pressure 130.00 mm[Hg] Sun Oct 27 10:26:23 EDT 2024 Diastolic Blood Pressure 66.00 mm[Hg] Sun Oct 27 10:26:23 EDT 2024 Systolic Blood Pressure 149.00 mm[Hg] Sat Oct 26 23:18:42 EDT 2024 Diastolic Blood Pressure 83.00 mm[Hg] Sat Oct 26 23:18:42 EDT 2024 Systolic Blood Pressure 149.00 mm[Hg] Sat Oct 26 23:18:42 EDT 2024 Diastolic Blood Pressure 83.00 mm[Hg] Sat Oct 26 23:18:42 EDT 2024 Systolic Blood Pressure 150.00 mm[Hg] Sat Oct 26 14:29:31 EDT 2024 Diastolic Blood Pressure 78.00 mm[Hg] Sat Oct 26 14:29:31 EDT 4 Systolic Blood Pressure 119.00 mm[Hg] Sat Oct 26 09:54:23 EDT 2023 Diastolic Blood Pressure 70.00 mm[Hg] Sat Oct 26 09:54:23 EDT 2023 Systolic Blood Pressure 119.00 mm[Hg] Sat Oct 26 09:54:23 EDT 2023 Diastolic Blood Pressure 70.00 mm[Hg] Sat Oct 26 09:54:23 EDT 2023 Systolic Blood Pressure 119.00 mm[Hg] Sat Oct 26 09:54:23 EDT 2023 Diastolic Blood Pressure 70.00 mm[Hg] Sat Oct 26 09:54:23 EDT 2023 Systolic Blood Pressure 119.00 mm[Hg] Sat Oct 26 08:33:16 EDT 2023 Diastolic Blood Pressure 70.00 mm[Hg] Sat Oct 26 08:33:16 EDT 2023 Heart Rate 77.00 /min Sat Oct 26 08:33 :16 EDT 2023 Systolic Blood Pressure 141.00 mm[Hg] Fri Oct 25 21:04:50 EDT 4 Diastolic Blood Pressure 73.00 mm[Hg] Fri Oct 25 21:04:50 EDT 4 Systolic Blood Pressure 141.00 mm[Hg] Fri Oct 25 21:04:50 EDT 4 Diastolic Blood Pressure 73.00 mm[Hg] Fri Oct 25 21:04:50 EDT 2023 Systolic Blood Pressure 155.00 mm[Hg] Fri Oct 25 15:41:07 EDT 2023 Diastolic Blood Pressure 88.00 mm[Hg] Fri Oct 25 15:41:07 EDT 2023 Systolic Blood Pressure 136.00 mm[Hg] Fri Oct 25 11:25:37 EDT 4 Diastolic Blood Pressure 71.00 mm[Hg] Fri Oct 25 11:25:37 EDT 4 Systolic Blood Pressure 136.00 mm[Hg] Fri Oct 25 11:25:37 EDT 4 Diastolic Blood Pressure 71.00 mm[Hg] Fri Oct 25 11:25:37 EDT 2023 Systolic Blood Pressure 136.00 mm[Hg] Fri Oct 25 11:25:37 EDT 2023 Diastolic Blood Pressure 71.00 mm[Hg] Fri Oct 25 11:25:37 EDT 2023 Systolic Blood Pressure 136.00 mm[Hg] Fri Oct 25 08:04:06 EDT 2023 Diastolic Blood Pressure 71.00 mm[Hg] Fri Oct 25 08:04:06 EDT 2023 Heart Rate 87.00 /min Fri Oct 25 08:04 :06 EDT 2023 Systolic Blood Pressure 126.00 mm[Hg] Samantha Oct 24 20:56:13 EDT 2023 Diastolic Blood Pressure 78.00 mm[Hg] Samantha Oct 24 20:56:13 EDT 2023 Systolic Blood Pressure 126.00 mm[Hg] Samantha Oct 24 20:56:13 EDT 2023 Diastolic Blood Pressure 78.00 mm[Hg] Samantha Oct 24 20:56:13 EDT 2023 Systolic Blood Pressure 132.00 mm[Hg] Samantha Oct 24 13:43:16 EDT 2023 Diastolic Blood Pressure 71.00 mm[Hg] Samantha Oct 24 13:43:16 EDT 2023 Systolic Blood Pressure 118.00 mm[Hg] Samantha Oct 24 10:56:18 EDT 2023 Diastolic Blood Pressure 82.00 mm[Hg] Samantha Oct 24 10:56:18 EDT 2023 Systolic Blood Pressure 118.00 mm[Hg] Samantha Oct 24 10:56:18 EDT 2023 Diastolic Blood Pressure 82.00 mm[Hg] Samantha Oct 24 10:56:18 EDT 4 Systolic Blood Pressure 118.00 mm[Hg] Samantha Oct 24 10:56:18 EDT 2023 Diastolic Blood Pressure 82.00 mm[Hg] Samantha Oct 24 10:56:18 EDT 2023 Systolic Blood Pressure 148.00 mm[Hg] Wed Oct 23 20:48:32 EDT 2023 Diastolic Blood Pressure 82.00 mm[Hg] Wed Oct 23 20:48:32 EDT 4 Systolic Blood Pressure 148.00 mm[Hg] Wed Oct 23 20:48:32 EDT 4 Diastolic Blood Pressure 82.00 mm[Hg] Wed Oct 23 20:48:32 EDT 4 Systolic Blood Pressure 142.00 mm[Hg] Wed Oct 23 13:32:12 EDT 2023 Diastolic Blood Pressure 59.00 mm[Hg] Wed Oct 23 13:32:12 EDT 4 Systolic Blood Pressure 142.00 mm[Hg] Wed Oct 23 13:32:12 EDT 2023 Diastolic Blood Pressure 59.00 mm[Hg] Wed Oct 23 13:32:12 EDT 4 Systolic Blood Pressure 142.00 mm[Hg] Wed Oct 23 13:32:12 EDT 4 Diastolic Blood Pressure 59.00 mm[Hg] Wed Oct 23 13:32:12 EDT 4 Systolic Blood Pressure 142.00 mm[Hg] Wed Oct 23 13:32:12 EDT 4 Diastolic Blood Pressure 59.00 mm[Hg] Wed Oct 23 13:32:12 EDT 4 Systolic Blood Pressure 142.00 mm[Hg] Wed Oct 23 13:32:12 EDT 4 Diastolic Blood Pressure 59.00 mm[Hg] Wed Oct 23 13:32:12 EDT 4 Heart Rate 67.00 /min Wed Oct 23 13:32 :12 EDT 4 Pulse Oximetry 93.00 % Wed Oct 23 13:32 :12 EDT 4 Respiratory rate 20.00 /min Wed Oct 23 13:3 2:12 EDT 2023 Body temperature 98.30 [degF] Wed Oct 23 13:3 2:12 EDT 2023 Systolic Blood Pressure 142.00 mm[Hg] Wed Oct 23 07:55:04 EDT 2023 Diastolic Blood Pressure 59.00 mm[Hg] Wed Oct 23 07:55:04 EDT 2023 Pulse Oximetry 94.00 % Wed Oct 23 07:55 :04 EDT 2023 Heart Rate 68.00 /min Wed Oct 23 07:55 :04 EDT 2023 Systolic Blood Pressure 131.00 mm[Hg] Tue Oct 22 23:39:27 EDT 2023 Diastolic Blood Pressure 82.00 mm[Hg] Tue Oct 22 23:39:27 EDT 2023 Systolic Blood Pressure 131.00 mm[Hg] Tue Oct 22 23:39:27 EDT 2023 Diastolic Blood Pressure 82.00 mm[Hg] Tue Oct 22 23:39:27 EDT 2023 Systolic Blood Pressure 137.00 mm[Hg] Tue Oct 22 13:27:07 EDT 4 Diastolic Blood Pressure 77.00 mm[Hg] Tue Oct 22 13:27:07 EDT 2023 Systolic Blood Pressure 141.00 mm[Hg] Tue Oct 22 10:34:01 EDT 2023 Diastolic Blood Pressure 70.00 mm[Hg] Tue Oct 22 10:34:01 EDT 2023 Systolic Blood Pressure 141.00 mm[Hg] Tue Oct 22 10:34:01 EDT 2023 Diastolic Blood Pressure 70.00 mm[Hg] Maoe Oct 22 10:34:01 EDT 2023 Systolic Blood Pressure 141.00 mm[Hg] Tue Oct 22 10:34:01 EDT 2023 Diastolic Blood Pressure 70.00 mm[Hg] Maoe Oct 22 10:34:01 EDT 2023 Systolic Blood Pressure 160.00 mm[Hg] Mon Oct 21 23:43:00 EDT 2023 Diastolic Blood Pressure 89.00 mm[Hg] Mon Oct 21 23:43:00 EDT 2023 Heart Rate 70.00 /min Mon Oct 21 23:43 :00 EDT 2023 Respiratory rate 20.00 /min Mon Oct 21 23:4 3:00 EDT 2023 Pulse Oximetry 95.00 % Mon Oct 21 23:43 :00 EDT 2023 Body temperature 98.00 [degF] Mon Oct 21 23:4 3:00 EDT 2023 Systolic Blood Pressure 145.00 mm[Hg] Mon Oct 21 20:47:38 EDT 2023 Diastolic Blood Pressure 78.00 mm[Hg] Mon Oct 21 20:47:38 EDT 2023 Systolic Blood Pressure 145.00 mm[Hg] Mon Oct 21 20:47:38 EDT 2023 Diastolic Blood Pressure 78.00 mm[Hg] Mon Oct 21 20:47:38 EDT 2023 Body weight 249.20 [lb_av] Mon Oct 21 19:36 :44 EDT 2023 Systolic Blood Pressure 139.00 mm[Hg] Mon Oct 21 14:00:33 EDT 2023 Diastolic Blood Pressure 86.00 mm[Hg] Mon Oct 21 14:00:33 EDT 2023 Systolic Blood Pressure 139.00 mm[Hg] Mon Oct 21 13:01:03 EDT 2023 Diastolic Blood Pressure 86.00 mm[Hg] Mon Oct 21 13:01:03 EDT 4 Systolic Blood Pressure 139.00 mm[Hg] Mon Oct 21 13:01:03 EDT 2023 Diastolic Blood Pressure 86.00 mm[Hg] Mon Oct 21 13:01:03 EDT 2023 Systolic Blood Pressure 139.00 mm[Hg] Mon Oct 21 13:01:03 EDT 2023 Diastolic Blood Pressure 86.00 mm[Hg] Mon Oct 21 13:01:03 EDT 2023 Systolic Blood Pressure 136.00 mm[Hg] Sun Oct 20 20:39:51 EDT 2023 Diastolic Blood Pressure 77.00 mm[Hg] Sun Oct 20 20:39:51 EDT 2023 Systolic Blood Pressure 136.00 mm[Hg] Sun Oct 20 20:39:51 EDT 2023 Diastolic Blood Pressure 77.00 mm[Hg] Sun Oct 20 20:39:51 EDT 2023 Systolic Blood Pressure 140.00 mm[Hg] Sun Oct 20 13:05:37 EDT 2023 Diastolic Blood Pressure 83.00 mm[Hg] Sun Oct 20 13:05:37 EDT 2023 Systolic Blood Pressure 146.00 mm[Hg] Sun Oct 20 09:48:18 EDT 2023 Diastolic Blood Pressure 72.00 mm[Hg] Sun Oct 20 09:48:18 EDT 2023 Systolic Blood Pressure 146.00 mm[Hg] Sun Oct 20 09:48:18 EDT 2023 Diastolic Blood Pressure 72.00 mm[Hg] Sun Oct 20 09:48:18 EDT 2023 Systolic Blood Pressure 146.00 mm[Hg] Sun Oct 20 09:48:18 EDT 2023 Diastolic Blood Pressure 72.00 mm[Hg] Sun Oct 20 09:48:18 EDT 2023 Systolic Blood Pressure 146.00 mm[Hg] Sun Oct 20 07:51:18 EDT 2023 Diastolic Blood Pressure 72.00 mm[Hg] Sun Oct 20 07:51:18 EDT 2023 Heart Rate 70.00 /min Sun Oct 20 07:51 :18 EDT 2023 Systolic Blood Pressure 152.00 mm[Hg] Sat Oct 19 20:37:43 EDT 2023 Diastolic Blood Pressure 78.00 mm[Hg] Sat Oct 19 20:37:43 EDT 2023 Systolic Blood Pressure 152.00 mm[Hg] Sat Oct 19 20:37:43 EDT 4 Diastolic Blood Pressure 78.00 mm[Hg] Sat Oct 19 20:37:43 EDT 4 Systolic Blood Pressure 145.00 mm[Hg] Sat Oct 19 13:52:30 EDT 2023 Diastolic Blood Pressure 74.00 mm[Hg] Sat Oct 19 13:52:30 EDT 2023 Systolic Blood Pressure 138.00 mm[Hg] Sat Oct 19 11:02:58 EDT 2023 Diastolic Blood Pressure 75.00 mm[Hg] Sat Oct 19 11:02:58 EDT 2023 Systolic Blood Pressure 138.00 mm[Hg] Sat Oct 19 11:02:58 EDT 2024 Diastolic Blood Pressure 75.00 mm[Hg] Sat Oct 19 11:02:58 EDT 2023 Systolic Blood Pressure 138.00 mm[Hg] Sat Oct 19 11:02:58 EDT 2023 Diastolic Blood Pressure 75.00 mm[Hg] Sat Oct 19 11:02:58 EDT 2023 Systolic Blood Pressure 130.00 mm[Hg] Fri Oct 18 23:10:22 EDT 2023 Diastolic Blood Pressure 71.00 mm[Hg] Fri Oct 18 23:10:22 EDT 2023 Systolic Blood Pressure 130.00 mm[Hg] Fri Oct 18 23:10:22 EDT 2023 Diastolic Blood Pressure 71.00 mm[Hg] Fri Oct 18 23:10:22 EDT 2023 Systolic Blood Pressure 148.00 mm[Hg] Fri Oct 18 14:46:12 EDT 2023 Diastolic Blood Pressure 89.00 mm[Hg] Fri Oct 18 14:46:12 EDT 2023 Systolic Blood Pressure 149.00 mm[Hg] Fri Oct 18 10:05:05 EDT 2023 Diastolic Blood Pressure 70.00 mm[Hg] Fri Oct 18 10:05:05 EDT 2023 Systolic Blood Pressure 149.00 mm[Hg] Fri Oct 18 10:05:05 EDT 2023 Diastolic Blood Pressure 70.00 mm[Hg] Fri Oct 18 10:05:05 EDT 2023 Systolic Blood Pressure 149.00 mm[Hg] Fri Oct 18 10:05:05 EDT 2023 Diastolic Blood Pressure 70.00 mm[Hg] Fri Oct 18 10:05:05 EDT 2023 Systolic Blood Pressure 149.00 mm[Hg] Fri Oct 18 09:23:15 EDT 2023 Diastolic Blood Pressure 70.00 mm[Hg] Fri Oct 18 09:23:15 EDT 2023 Pulse Oximetry 96.00 % Fri Oct 18 09:23 :15 EDT 2023 Heart Rate 70.00 /min Fri Oct 18 09:23 :15 EDT 2023 Systolic Blood Pressure 140.00 mm[Hg] Samantha Oct 17 22:43:47 EDT 2023 Diastolic Blood Pressure 83.00 mm[Hg] Samantha Oct 17 22:43:47 EDT 2023 Systolic Blood Pressure 140.00 mm[Hg] Samantha Oct 17 22:43:47 EDT 2023 Diastolic Blood Pressure 83.00 mm[Hg] Samantha Oct 17 22:43:47 EDT 4 Systolic Blood Pressure 148.00 mm[Hg] Samantha Oct 17 15:33:22 EDT 2023 Diastolic Blood Pressure 80.00 mm[Hg] Samantha Oct 17 15:33:22 EDT 2023 Body temperature 0.00 [degF] Samantha Oct 17 14:2 2:47 EDT 2023 Systolic Blood Pressure 138.00 mm[Hg] Samantha Oct 17 12:08:17 EDT 2023 Diastolic Blood Pressure 70.00 mm[Hg] Samantha Oct 17 12:08:17 EDT 2023 Systolic Blood Pressure 138.00 mm[Hg] Samantha Oct 17 12:08:17 EDT 4 Diastolic Blood Pressure 70.00 mm[Hg] Samantha Oct 17 12:08:17 EDT 2023 Systolic Blood Pressure 138.00 mm[Hg] Samantha Oct 17 12:08:17 EDT 2023 Diastolic Blood Pressure 70.00 mm[Hg] Samantha Oct 17 12:08:17 EDT 2023 Body temperature 97.50 [degF] Samantha Oct 17 04:1 6:05 EDT 2023 Systolic Blood Pressure 130.00 mm[Hg] Wed Oct 16 20:43:16 EDT 4 Diastolic Blood Pressure 78.00 mm[Hg] Wed Oct 16 20:43:16 EDT 2023 Systolic Blood Pressure 130.00 mm[Hg] Wed Oct 16 20:43:16 EDT 2023 Diastolic Blood Pressure 78.00 mm[Hg] Wed Oct 16 20:43:16 EDT 4 Systolic Blood Pressure 135.00 mm[Hg] Wed Oct 16 14:51:13 EDT 4 Diastolic Blood Pressure 68.00 mm[Hg] Wed Oct 16 14:51:13 EDT 4 Heart Rate 78.00 /min Wed Oct 16 14:51 :13 EDT 2023 Pulse Oximetry 93.00 % Wed Oct 16 14:51 :13 EDT 4 Respiratory rate 22.00 /min Wed Oct 16 14:5 1:13 EDT 2023 Body temperature 97.50 [degF] Wed Oct 16 14:5 1:13 EDT 4 Body temperature 97.50 [degF] Wed Oct 16 14:5 1:13 EDT 4 Systolic Blood Pressure 135.00 mm[Hg] Wed Oct 16 13:32:12 EDT 2023 Diastolic Blood Pressure 68.00 mm[Hg] Wed Oct 16 13:32:12 EDT 2023 Systolic Blood Pressure 135.00 mm[Hg] Wed Oct 16 13:32:12 EDT 2023 Diastolic Blood Pressure 68.00 mm[Hg] Wed Oct 16 13:32:12 EDT 2023 Systolic Blood Pressure 135.00 mm[Hg] Wed Oct 16 13:32:12 EDT 2023 Diastolic Blood Pressure 68.00 mm[Hg] Wed Oct 16 13:32:12 EDT 2023 Systolic Blood Pressure 135.00 mm[Hg] Wed Oct 16 13:32:12 EDT 2023 Diastolic Blood Pressure 68.00 mm[Hg] Wed Oct 16 13:32:12 EDT 2023 Body temperature 97.50 [degF] Wed Oct 16 04:2 2:53 EDT 2023 Systolic Blood Pressure 135.00 mm[Hg] Tue Oct 15 20:59:20 EDT 2023 Diastolic Blood Pressure 75.00 mm[Hg] Tue Oct 15 20:59:20 EDT 2023 Systolic Blood Pressure 135.00 mm[Hg] Tue Oct 15 20:59:20 EDT 2023 Diastolic Blood Pressure 75.00 mm[Hg] Tue Oct 15 20:59:20 EDT 2023 Systolic Blood Pressure 140.00 mm[Hg] Tue Oct 15 13:11:21 EDT 2023 Diastolic Blood Pressure 82.00 mm[Hg] Tue Oct 15 13:11:21 EDT 2023 Systolic Blood Pressure 158.00 mm[Hg] Tue Oct 15 10:36:12 EDT 2023 Diastolic Blood Pressure 84.00 mm[Hg] Tue Oct 15 10:36:12 EDT 2023 Systolic Blood Pressure 158.00 mm[Hg] Tue Oct 15 10:36:12 EDT 2023 Diastolic Blood Pressure 84.00 mm[Hg] Tue Oct 15 10:36:12 EDT 2023 Systolic Blood Pressure 158.00 mm[Hg] Tue Oct 15 10:36:12 EDT 2023 Diastolic Blood Pressure 84.00 mm[Hg] Tue Oct 15 10:36:12 EDT 2023 Body temperature 97.70 [degF] Tue Oct 15 10:3 6:12 EDT 2023 Systolic Blood Pressure 158.00 mm[Hg] Tue Oct 15 08:21:18 EDT 2023 Diastolic Blood Pressure 84.00 mm[Hg] Tue Oct 15 08:21:18 EDT 4 Heart Rate 81.00 /min Mao Oct 15 08:21 :18 EDT 2024 Systolic Blood Pressure 148.00 mm[Hg] Mon Oct 14 21:19:21 EDT 2024 Diastolic Blood Pressure 88.00 mm[Hg] Mon Oct 14 21:19:21 EDT 4 Systolic Blood Pressure 148.00 mm[Hg] Mon Oct 14 21:19:21 EDT 4 Diastolic Blood Pressure 88.00 mm[Hg] Mon Oct 14 21:19:21 EDT 2024 Body temperature 97.80 [degF] Mon Oct 14 21:1 9:21 EDT 4 Body weight 299.80 [lb_av] Mon Oct 14 15:13 :54 EDT 4 Systolic Blood Pressure 154.00 mm[Hg] Mon Oct 14 13:40:42 EDT 4 Diastolic Blood Pressure 91.00 mm[Hg] Mon Oct 14 13:40:42 EDT 2023 Body temperature 98.20 [degF] [facility] Oct 14 12:2 4:44 EDT 4 Systolic Blood Pressure 132.00 mm[Hg] Mon Oct 14 09:55:36 EDT 2024 Diastolic Blood Pressure 80.00 mm[Hg] Mon Oct 14 09:55:36 EDT 2024 Systolic Blood Pressure 132.00 mm[Hg] Mon Oct 14 09:55:36 EDT 4 Diastolic Blood Pressure 80.00 mm[Hg] Mon Oct 14 09:55:36 EDT 2024 Systolic Blood Pressure 132.00 mm[Hg] Mon Oct 14 09:55:36 EDT 2024 Diastolic Blood Pressure 80.00 mm[Hg] Mon Oct 14 09:55:36 EDT 4 Body temperature 97.60 [degF] Sun Oct 13 23:3 1:54 EDT 4 Systolic Blood Pressure 158.00 mm[Hg] Sun Oct 13 22:23:15 EDT 4 Diastolic Blood Pressure 82.00 mm[Hg] Sun Oct 13 22:23:15 EDT 2023 Systolic Blood Pressure 158.00 mm[Hg] Sun Oct 13 22:23:15 EDT 4 Diastolic Blood Pressure 82.00 mm[Hg] Sun Oct 13 22:23:15 EDT 2023 Systolic Blood Pressure 146.00 mm[Hg] Sun Oct 13 13:48:02 EDT 2024 Diastolic Blood Pressure 84.00 mm[Hg] Sun Oct 13 13:48:02 EDT 4 Systolic Blood Pressure 141.00 mm[Hg] Sun Oct 13 09:43:02 EDT 2023 Diastolic Blood Pressure 83.00 mm[Hg] Sun Oct 13 09:43:02 EDT 2023 Systolic Blood Pressure 141.00 mm[Hg] Sun Oct 13 09:43:02 EDT 2023 Diastolic Blood Pressure 83.00 mm[Hg] Sun Oct 13 09:43:02 EDT 2023 Systolic Blood Pressure 141.00 mm[Hg] Sun Oct 13 09:43:02 EDT 2023 Diastolic Blood Pressure 83.00 mm[Hg] Sun Oct 13 09:43:02 EDT 2023 Body temperature 98.10 [degF] Sun Oct 13 09:4 3:02 EDT 2023 Body temperature 98.30 [degF] Sun Oct 13 00:4 4:47 EDT 2023 Systolic Blood Pressure 171.00 mm[Hg] Sat Oct 12 22:21:30 EDT 2023 Diastolic Blood Pressure 91.00 mm[Hg] Sat Oct 12 22:21:30 EDT 4 Systolic Blood Pressure 171.00 mm[Hg] Sat Oct 12 22:21:30 EDT 4 Diastolic Blood Pressure 91.00 mm[Hg] Sat Oct 12 22:21:30 EDT 4 Systolic Blood Pressure 154.00 mm[Hg] Sat Oct 12 13:53:31 EDT 2023 Diastolic Blood Pressure 82.00 mm[Hg] Sat Oct 12 13:53:31 EDT 2023 Body temperature 97.50 [degF] Sat Oct 12 11:1 1:36 EDT 2023 Systolic Blood Pressure 140.00 mm[Hg] Sat Oct 12 11:10:01 EDT 4 Diastolic Blood Pressure 74.00 mm[Hg] Sat Oct 12 11:10:01 EDT 4 Systolic Blood Pressure 140.00 mm[Hg] Sat Oct 12 11:10:01 EDT 2023 Diastolic Blood Pressure 74.00 mm[Hg] Sat Oct 12 11:10:01 EDT 2023 Systolic Blood Pressure 140.00 mm[Hg] Sat Oct 12 11:10:01 EDT 4 Diastolic Blood Pressure 74.00 mm[Hg] Sat Oct 12 11:10:01 EDT 2023 Body temperature 97.80 [degF] Fri Oct 11 21:5 4:20 EDT 2024 Systolic Blood Pressure 152.00 mm[Hg] Fri Oct 11 20:58:35 EDT 2023 Diastolic Blood Pressure 76.00 mm[Hg] Fri Oct 11 20:58:35 EDT 2023 Systolic Blood Pressure 152.00 mm[Hg] Fri Oct 11 20:58:35 EDT 2023 Diastolic Blood Pressure 76.00 mm[Hg] Fri Oct 11 20:58:35 EDT 2023 Body temperature 97.60 [degF] Fri Oct 11 15:2 2:21 EDT 2023 Systolic Blood Pressure 159.00 mm[Hg] Fri Oct 11 15:19:14 EDT 2023 Diastolic Blood Pressure 90.00 mm[Hg] Fri Oct 11 15:19:14 EDT 2023 Systolic Blood Pressure 130.00 mm[Hg] Fri Oct 11 11:07:00 EDT 2023 Diastolic Blood Pressure 67.00 mm[Hg] Fri Oct 11 11:07:00 EDT 2023 Systolic Blood Pressure 130.00 mm[Hg] Fri Oct 11 11:07:00 EDT 2023 Diastolic Blood Pressure 67.00 mm[Hg] Fri Oct 11 11:07:00 EDT 2023 Systolic Blood Pressure 130.00 mm[Hg] Fri Oct 11 11:07:00 EDT 2023 Diastolic Blood Pressure 67.00 mm[Hg] Fri Oct 11 11:07:00 EDT 2023 Body temperature 97.40 [degF] Fri Oct 11 04:3 8:31 EDT 2023 Systolic Blood Pressure 135.00 mm[Hg] Samantha Oct 10 20:39:37 EDT 2023 Diastolic Blood Pressure 77.00 mm[Hg] Samantha Oct 10 20:39:37 EDT 2023 Systolic Blood Pressure 135.00 mm[Hg] Samantha Oct 10 20:39:37 EDT 2023 Diastolic Blood Pressure 77.00 mm[Hg] Samantha Oct 10 20:39:37 EDT 2023 Systolic Blood Pressure 144.00 mm[Hg] Samantha Oct 10 13:34:20 EDT 2023 Diastolic Blood Pressure 80.00 mm[Hg] Samantha Oct 10 13:34:20 EDT 2023 Systolic Blood Pressure 134.00 mm[Hg] Samantha Oct 10 09:25:25 EDT 2023 Diastolic Blood Pressure 68.00 mm[Hg] Samantha Oct 10 09:25:25 EDT 2023 Systolic Blood Pressure 134.00 mm[Hg] Samantha Oct 10 09:25:25 EDT 4 Diastolic Blood Pressure 68.00 mm[Hg] Samantha Oct 10 09:25:25 EDT 2023 Systolic Blood Pressure 134.00 mm[Hg] Samantha Oct 10 09:25:25 EDT 2023 Diastolic Blood Pressure 68.00 mm[Hg] Samantha Oct 10 09:25:25 EDT 2023 Body weight 304.80 [lb_av] Samantha Oct 10 08:08 :08 EDT 2023 Systolic Blood Pressure 168.00 mm[Hg] Wed Oct 09 20:16:18 EDT 2023 Diastolic Blood Pressure 78.00 mm[Hg] Wed Oct 09 20:16:18 EDT 2023 Systolic Blood Pressure 168.00 mm[Hg] Wed Oct 09 20:16:18 EDT 2023 Diastolic Blood Pressure 78.00 mm[Hg] Wed Oct 09 20:16:18 EDT 2023 Systolic Blood Pressure 166.00 mm[Hg] Wed Oct 09 13:08:49 EDT 2023 Diastolic Blood Pressure 85.00 mm[Hg] Wed Oct 09 13:08:49 EDT 4 Systolic Blood Pressure 148.00 mm[Hg] Wed Oct 09 10:04:42 EDT 4 Diastolic Blood Pressure 78.00 mm[Hg] Wed Oct 09 10:04:42 EDT 4 Systolic Blood Pressure 148.00 mm[Hg] Wed Oct 09 10:04:42 EDT 4 Diastolic Blood Pressure 78.00 mm[Hg] Wed Oct 09 10:04:42 EDT 4 Systolic Blood Pressure 148.00 mm[Hg] Wed Oct 09 10:04:42 EDT 4 Diastolic Blood Pressure 78.00 mm[Hg] Wed Oct 09 10:04:42 EDT 4 Systolic Blood Pressure 148.00 mm[Hg] Wed Oct 09 10:04:42 EDT 4 Diastolic Blood Pressure 78.00 mm[Hg] Wed Oct 09 10:04:42 EDT 4 Heart Rate 66.00 /min Wed Oct 09 10:04 :42 EDT 2023 Pulse Oximetry 94.00 % Wed Mar 09 10:04 :42 EDT 4 Respiratory rate 18.00 /min Wed Oct 09 10:0 4:42 EDT 4 Body temperature 97.40 [degF] Wed Mar 09 10:0 4:42 EDT 2024 Systolic Blood Pressure 153.00 mm[Hg] Wed Oct 09 03:01:54 EDT 2023 Diastolic Blood Pressure 89.00 mm[Hg] Wed Oct 09 03:01:54 EDT 2023 Systolic Blood Pressure 153.00 mm[Hg] Wed Oct 09 03:01:54 EDT 2023 Diastolic Blood Pressure 89.00 mm[Hg] Wed Oct 09 03:01:54 EDT 2023 Systolic Blood Pressure 146.00 mm[Hg] Tue Oct 08 13:19:00 EDT 2023 Diastolic Blood Pressure 85.00 mm[Hg] Tue Oct 08 13:19:00 EDT 2023 Systolic Blood Pressure 144.00 mm[Hg] Tue Oct 08 10:20:36 EDT 2023 Diastolic Blood Pressure 88.00 mm[Hg] Tue Oct 08 10:20:36 EDT 2023 Systolic Blood Pressure 144.00 mm[Hg] Tue Oct 08 10:20:36 EDT 2023 Diastolic Blood Pressure 88.00 mm[Hg] Tue Oct 08 10:20:36 EDT 2023 Systolic Blood Pressure 144.00 mm[Hg] Tue Oct 08 10:20:36 EDT 2023 Diastolic Blood Pressure 88.00 mm[Hg] Tue Oct 08 10:20:36 EDT 2023 Systolic Blood Pressure 144.00 mm[Hg] Tue Oct 08 08:12:20 EDT 2023 Diastolic Blood Pressure 88.00 mm[Hg] Tue Oct 08 08:12:20 EDT 2023 Heart Rate 65.00 /min e Oct 08 08:12 :20 EDT 2023 Systolic Blood Pressure 152.00 mm[Hg] Mon Oct 07 20:42:07 EDT 2023 Diastolic Blood Pressure 75.00 mm[Hg] Mon Oct 07 20:42:07 EDT 2023 Systolic Blood Pressure 152.00 mm[Hg] Mon Oct 07 20:42:07 EDT 2023 Diastolic Blood Pressure 75.00 mm[Hg] Mon Oct 07 20:42:07 EDT 2023 Body weight 293.40 [lb_av] Mon Oct 07 14:08 :32 EDT 2023 Systolic Blood Pressure 144.00 mm[Hg] Mon Oct 07 13:25:17 EDT 2023 Diastolic Blood Pressure 86.00 mm[Hg] Mon Oct 07 13:25:17 EDT 2023 Systolic Blood Pressure 153.00 mm[Hg] Mon Oct 07 09:03:11 EDT 2023 Diastolic Blood Pressure 97.00 mm[Hg] Mon Oct 07 09:03:11 EDT 2023 Systolic Blood Pressure 153.00 mm[Hg] Mon Oct 07 09:03:11 EDT 2023 Diastolic Blood Pressure 97.00 mm[Hg] Mon Oct 07 09:03:11 EDT 2023 Systolic Blood Pressure 153.00 mm[Hg] Mon Oct 07 09:03:11 EDT 2023 Diastolic Blood Pressure 97.00 mm[Hg] Mon Oct 07 09:03:11 EDT 2023 Systolic Blood Pressure 133.00 mm[Hg] Sun Oct 06 20:40:53 EDT 2023 Diastolic Blood Pressure 72.00 mm[Hg] Sun Oct 06 20:40:53 EDT 2023 Systolic Blood Pressure 133.00 mm[Hg] Sun Oct 06 20:40:53 EDT 2023 Diastolic Blood Pressure 72.00 mm[Hg] Sun Oct 06 20:40:53 EDT 2023 Systolic Blood Pressure 142.00 mm[Hg] Sun Oct 06 14:02:27 EDT 2023 Diastolic Blood Pressure 81.00 mm[Hg] Sun Oct 06 14:02:27 EDT 2023 Systolic Blood Pressure 136.00 mm[Hg] Sun Oct 06 10:01:12 EDT 2023 Diastolic Blood Pressure 70.00 mm[Hg] Sun Oct 06 10:01:12 EDT 2023 Systolic Blood Pressure 136.00 mm[Hg] Sun Oct 06 10:01:12 EDT 2023 Diastolic Blood Pressure 70.00 mm[Hg] Sun Oct 06 10:01:12 EDT 2023 Systolic Blood Pressure 136.00 mm[Hg] Sun Oct 06 10:01:12 EDT 2023 Diastolic Blood Pressure 70.00 mm[Hg] Sun Oct 06 10:01:12 EDT 2023 Systolic Blood Pressure 136.00 mm[Hg] Sun Oct 06 07:47:20 EDT 2023 Diastolic Blood Pressure 70.00 mm[Hg] Sun Oct 06 07:47:20 EDT 2023 Heart Rate 76.00 /min Sun Oct 06 07:47 :20 EDT 2023 Systolic Blood Pressure 148.00 mm[Hg] Sat Oct 05 20:43:35 EDT 2023 Diastolic Blood Pressure 76.00 mm[Hg] Sat Oct 05 20:43:35 EDT 2023 Systolic Blood Pressure 148.00 mm[Hg] Sat Oct 05 20:43:35 EDT 4 Diastolic Blood Pressure 76.00 mm[Hg] Sat Oct 05 20:43:35 EDT 4 Systolic Blood Pressure 159.00 mm[Hg] Sat Oct 05 13:27:22 EDT 2023 Diastolic Blood Pressure 86.00 mm[Hg] Sat Oct 05 13:27:22 EDT 2023 Systolic Blood Pressure 159.00 mm[Hg] Sat Oct 05 09:47:23 EDT 2023 Diastolic Blood Pressure 86.00 mm[Hg] Sat Oct 05 09:47:23 EDT 2023 Systolic Blood Pressure 159.00 mm[Hg] Sat Oct 05 09:47:23 EDT 2023 Diastolic Blood Pressure 86.00 mm[Hg] Sat Oct 05 09:47:23 EDT 2023 Systolic Blood Pressure 159.00 mm[Hg] Sat Oct 05 09:47:23 EDT 2023 Diastolic Blood Pressure 86.00 mm[Hg] Sat Oct 05 09:47:23 EDT 2023 Systolic Blood Pressure 159.00 mm[Hg] Sat Oct 05 07:32:33 EDT 2023 Diastolic Blood Pressure 86.00 mm[Hg] Sat Oct 05 07:32:33 EDT 2023 Heart Rate 79.00 /min Sat Oct 05 07:32 :33 EDT 2023 Systolic Blood Pressure 132.00 mm[Hg] Sat Oct 05 00:33:09 EDT 2023 Diastolic Blood Pressure 78.00 mm[Hg] Sat Oct 05 00:33:09 EDT 2023 Systolic Blood Pressure 132.00 mm[Hg] Sat Oct 05 00:33:09 EDT 2023 Diastolic Blood Pressure 78.00 mm[Hg] Sat Oct 05 00:33:09 EDT 2023 Systolic Blood Pressure 149.00 mm[Hg] Fri Oct 04 13:39:09 EDT 2023 Diastolic Blood Pressure 89.00 mm[Hg] Fri Oct 04 13:39:09 EDT 2023 Systolic Blood Pressure 146.00 mm[Hg] Fri Oct 04 10:44:13 EDT 2023 Diastolic Blood Pressure 81.00 mm[Hg] Fri Oct 04 10:44:13 EDT 2023 Systolic Blood Pressure 146.00 mm[Hg] Fri Oct 04 10:44:13 EDT 2023 Diastolic Blood Pressure 81.00 mm[Hg] Fri Oct 04 10:44:13 EDT 2023 Systolic Blood Pressure 146.00 mm[Hg] Fri Oct 04 10:44:13 EDT 4 Diastolic Blood Pressure 81.00 mm[Hg] Fri Oct 04 10:44:13 EDT 2023 Systolic Blood Pressure 128.00 mm[Hg] Samantha Oct 03 21:32:54 EDT 4 Diastolic Blood Pressure 71.00 mm[Hg] Samantha Oct 03 21:32:54 EDT 2023 Systolic Blood Pressure 128.00 mm[Hg] Samantha Oct 03 21:32:54 EDT 2023 Diastolic Blood Pressure 71.00 mm[Hg] Samantha Oct 03 21:32:54 EDT 2023 Systolic Blood Pressure 161.00 mm[Hg] Samantha Oct 03 13:17:03 EDT 2023 Diastolic Blood Pressure 93.00 mm[Hg] Samantha Oct 03 13:17:03 EDT 2023 Systolic Blood Pressure 158.00 mm[Hg] Samantha Oct 03 09:36:34 EDT 2023 Diastolic Blood Pressure 81.00 mm[Hg] Samantha Oct 03 09:36:34 EDT 2023 Systolic Blood Pressure 158.00 mm[Hg] Samantha Oct 03 09:36:34 EDT 2023 Diastolic Blood Pressure 81.00 mm[Hg] Samantha Oct 03 09:36:34 EDT 4 Systolic Blood Pressure 158.00 mm[Hg] Samantha Oct 03 09:36:34 EDT 4 Diastolic Blood Pressure 81.00 mm[Hg] Samantha Oct 03 09:36:34 EDT 4 Systolic Blood Pressure 141.00 mm[Hg] Wed Oct 02 20:40:13 EDT 2023 Diastolic Blood Pressure 75.00 mm[Hg] Wed Oct 02 20:40:13 EDT 2023 Systolic Blood Pressure 141.00 mm[Hg] Wed Oct 02 20:40:13 EDT 2023 Diastolic Blood Pressure 75.00 mm[Hg] Wed Oct 02 20:40:13 EDT 2023 Systolic Blood Pressure 158.00 mm[Hg] Wed Oct 02 13:07:14 EDT 2023 Diastolic Blood Pressure 82.00 mm[Hg] Wed Oct 02 13:07:14 EDT 2023 Systolic Blood Pressure 126.00 mm[Hg] Wed Oct 02 10:12:22 EDT 2023 Diastolic Blood Pressure 72.00 mm[Hg] Wed Oct 02 10:12:22 EDT 2023 Heart Rate 66.00 /min Wed Oct 02 10:12 :22 EDT 2023 Pulse Oximetry 94.00 % Wed Oct 02 10:12 :22 EDT 4 Respiratory rate 20.00 /min Wed Oct 02 10:1 2:22 EDT 2023 Body temperature 98.60 [degF] Wed Oct 02 10:1 2:22 EDT 2023 Systolic Blood Pressure 126.00 mm[Hg] Wed Oct 02 09:45:53 EDT 4 Diastolic Blood Pressure 72.00 mm[Hg] Wed Oct 02 09:45:53 EDT 4 Systolic Blood Pressure 126.00 mm[Hg] Wed Oct 02 09:45:53 EDT 4 Diastolic Blood Pressure 72.00 mm[Hg] Wed Oct 02 09:45:53 EDT 4 Systolic Blood Pressure 126.00 mm[Hg] Wed Oct 02 09:45:53 EDT 2023 Diastolic Blood Pressure 72.00 mm[Hg] Wed Oct 02 09:45:53 EDT 4 Systolic Blood Pressure 152.00 mm[Hg] Wed Oct 02 08:14:29 EDT 2023 Diastolic Blood Pressure 79.00 mm[Hg] Wed Oct 02 08:14:29 EDT 2023 Pulse Oximetry 96.00 % Wed Oct 02 08:14 :29 EDT 4 Heart Rate 80.00 /min Wed Oct 02 08:14 :29 EDT 4 Systolic Blood Pressure 126.00 mm[Hg] Wed Oct 02 08:12:43 EDT 2023 Diastolic Blood Pressure 72.00 mm[Hg] Wed Oct 02 08:12:43 EDT 4 Heart Rate 66.00 /min Wed Oct 02 08:12 :43 EDT 2023 Pulse Oximetry 94.00 % Wed Oct 02 08:12 :43 EDT 2023 Body temperature 98.60 [degF] Wed Oct 02 08:1 2:43 EDT 4 Systolic Blood Pressure 138.00 mm[Hg] Tue Oct 01 20:54:08 EDT 4 Diastolic Blood Pressure 86.00 mm[Hg] Tue Oct 01 20:54:08 EDT 4 Systolic Blood Pressure 138.00 mm[Hg] Tue Oct 01 20:54:08 EDT 4 Diastolic Blood Pressure 86.00 mm[Hg] Tue Oct 01 20:54:08 EDT 4 Systolic Blood Pressure 144.00 mm[Hg] Tue Oct 01 13:48:44 EDT 4 Diastolic Blood Pressure 87.00 mm[Hg] [facility] Mar 31 13:48:44 EDT 4 Systolic Blood Pressure 133.00 mm[Hg] [facility] Mar 31 10:07:11 EDT 2023 Diastolic Blood Pressure 64.00 mm[Hg] [facility] Mar 31 10:07:11 EDT 4 Systolic Blood Pressure 133.00 mm[Hg] [facility] Mar 31 10:07:11 EDT 2023 Diastolic Blood Pressure 64.00 mm[Hg] [facility] Mar 31 10:07:11 EDT 2023 Systolic Blood Pressure 133.00 mm[Hg] [facility] Mar 31 10:07:11 EDT 2023 Diastolic Blood Pressure 64.00 mm[Hg] [facility] Mar 31 10:07:11 EDT 2023 Systolic Blood Pressure 133.00 mm[Hg] [facility] Mar 31 07:42:22 EDT 2023 Diastolic Blood Pressure 64.00 mm[Hg] [facility] Mar 31 07:42:22 EDT 2023 Heart Rate 74.00 /min [facility] Mar 31 07:42 :22 EDT 2023 Pulse Oximetry 92.00 % [facility] Mar 31 07:42 :22 EDT 2023 Systolic Blood Pressure 138.00 mm[Hg] [facility] Sep 30 21:19:30 EDT 4 Diastolic Blood Pressure 74.00 mm[Hg] [facility] Sep 30 21:19:30 EDT 2023 Systolic Blood Pressure 138.00 mm[Hg] [facility] Sep 30 21:19:30 EDT 4 Diastolic Blood Pressure 74.00 mm[Hg] [facility] Sep 30 21:19:30 EDT 2023 Systolic Blood Pressure 143.00 mm[Hg] Mon Sep 30 14:58:57 EDT 2023 Diastolic Blood Pressure 81.00 mm[Hg] Mon Sep 30 14:58:57 EDT 4 Systolic Blood Pressure 146.00 mm[Hg] Mon Sep 30 10:44:47 EDT 2023 Diastolic Blood Pressure 77.00 mm[Hg] Mon Sep 30 10:44:47 EDT 2023 Systolic Blood Pressure 146.00 mm[Hg] Mon Sep 30 10:44:47 EDT 2023 Diastolic Blood Pressure 77.00 mm[Hg] Mon Sep 30 10:44:47 EDT 2023 Systolic Blood Pressure 146.00 mm[Hg] Mon Sep 30 10:44:47 EDT 2023 Diastolic Blood Pressure 77.00 mm[Hg] Mon Sep 30 10:44:47 EDT 4 Systolic Blood Pressure 132.00 mm[Hg] Mon Sep 30 07:35:54 EDT 4 Diastolic Blood Pressure 76.00 mm[Hg] Mon Sep 30 07:35:54 EDT 4 Heart Rate 78.00 /min Mon Sep 30 07:35 :54 EDT 4 Systolic Blood Pressure 132.00 mm[Hg] Sun Sep 29 22:07:27 EDT 2023 Diastolic Blood Pressure 69.00 mm[Hg] Sun Sep 29 22:07:27 EDT 2023 Systolic Blood Pressure 132.00 mm[Hg] Sun Sep 29 22:07:27 EDT 2023 Diastolic Blood Pressure 69.00 mm[Hg] Sun Sep 29 22:07:27 EDT 2023 Systolic Blood Pressure 154.00 mm[Hg] Sun Sep 29 13:25:32 EDT 2023 Diastolic Blood Pressure 92.00 mm[Hg] Sun Sep 29 13:25:32 EDT 2023 Systolic Blood Pressure 168.00 mm[Hg] Sun Sep 29 09:49:46 EDT 2023 Diastolic Blood Pressure 90.00 mm[Hg] Sun Sep 29 09:49:46 EDT 4 Systolic Blood Pressure 168.00 mm[Hg] Sun Sep 29 09:49:46 EDT 4 Diastolic Blood Pressure 90.00 mm[Hg] Sun Sep 29 09:49:46 EDT 4 Systolic Blood Pressure 168.00 mm[Hg] Sun Sep 29 09:49:46 EDT 4 Diastolic Blood Pressure 90.00 mm[Hg] Sun Sep 29 09:49:46 EDT 2023 Systolic Blood Pressure 141.00 mm[Hg] Sat Sep 28 22:11:57 EDT 2023 Diastolic Blood Pressure 84.00 mm[Hg] Sat Sep 28 22:11:57 EDT 4 Systolic Blood Pressure 141.00 mm[Hg] Sat Sep 28 22:11:57 EDT 4 Diastolic Blood Pressure 84.00 mm[Hg] Sat Sep 28 22:11:57 EDT 2023 Systolic Blood Pressure 140.00 mm[Hg] Sat Sep 28 13:14:02 EDT 2023 Diastolic Blood Pressure 81.00 mm[Hg] Sat Sep 28 13:14:02 EDT 2023 Systolic Blood Pressure 159.00 mm[Hg] Sat Sep 28 10:29:34 EDT 2024 Diastolic Blood Pressure 90.00 mm[Hg] Sat Sep 28 10:29:34 EDT 2023 Systolic Blood Pressure 159.00 mm[Hg] Sat Sep 28 10:29:34 EDT 2023 Diastolic Blood Pressure 90.00 mm[Hg] Sat Sep 28 10:29:34 EDT 2023 Systolic Blood Pressure 159.00 mm[Hg] Sat Sep 28 10:29:34 EDT 2023 Diastolic Blood Pressure 90.00 mm[Hg] Sat Sep 28 10:29:34 EDT 2023 Systolic Blood Pressure 162.00 mm[Hg] Fri Sep 27 20:42:34 EDT 2023 Diastolic Blood Pressure 78.00 mm[Hg] Fri Sep 27 20:42:34 EDT 2023 Systolic Blood Pressure 162.00 mm[Hg] Fri Sep 27 20:42:34 EDT 2023 Diastolic Blood Pressure 78.00 mm[Hg] Fri Sep 27 20:42:34 EDT 2023 Systolic Blood Pressure 173.00 mm[Hg] Fri Sep 27 13:09:17 EDT 2023 Diastolic Blood Pressure 83.00 mm[Hg] Fri Sep 27 13:09:17 EDT 2023 Systolic Blood Pressure 146.00 mm[Hg] Fri Sep 27 10:23:36 EDT 2023 Diastolic Blood Pressure 72.00 mm[Hg] Fri Sep 27 10:23:36 EDT 2023 Systolic Blood Pressure 146.00 mm[Hg] Fri Sep 27 10:23:36 EDT 2023 Diastolic Blood Pressure 72.00 mm[Hg] Fri Sep 27 10:23:36 EDT 2023 Systolic Blood Pressure 146.00 mm[Hg] Fri Sep 27 10:23:36 EDT 2023 Diastolic Blood Pressure 72.00 mm[Hg] Fri Sep 27 10:23:36 EDT 2023 Systolic Blood Pressure 138.00 mm[Hg] Samantha Sep 26 20:52:09 EDT 2023 Diastolic Blood Pressure 72.00 mm[Hg] Samantha Sep 26 20:52:09 EDT 2023 Systolic Blood Pressure 138.00 mm[Hg] Samantha Sep 26 20:52:09 EDT 2023 Diastolic Blood Pressure 72.00 mm[Hg] Samantha Sep 26 20:52:09 EDT 2023 Systolic Blood Pressure 145.00 mm[Hg] Samantha Sep 26 13:48:32 EDT 2023 Diastolic Blood Pressure 86.00 mm[Hg] Samantha Sep 26 13:48:32 EDT 2023 Systolic Blood Pressure 125.00 mm[Hg] Samantha Sep 26 11:07:15 EDT 2023 Diastolic Blood Pressure 75.00 mm[Hg] Samantha Sep 26 11:07:15 EDT 2023 Systolic Blood Pressure 125.00 mm[Hg] Samantha Sep 26 11:07:15 EDT 2023 Diastolic Blood Pressure 75.00 mm[Hg] Samantha Sep 26 11:07:15 EDT 2023 Systolic Blood Pressure 125.00 mm[Hg] Samantha Sep 26 11:07:15 EDT 2023 Diastolic Blood Pressure 75.00 mm[Hg] Samantha Sep 26 11:07:15 EDT 2023 Systolic Blood Pressure 136.00 mm[Hg] Wed Sep 25 21:07:25 EDT 2023 Diastolic Blood Pressure 78.00 mm[Hg] Wed Sep 25 21:07:25 EDT 2023 Systolic Blood Pressure 136.00 mm[Hg] Wed Sep 25 21:07:25 EDT 2023 Diastolic Blood Pressure 78.00 mm[Hg] Wed Sep 25 21:07:25 EDT 2023 Systolic Blood Pressure 165.00 mm[Hg] Wed Sep 25 15:49:00 EDT 2023 Diastolic Blood Pressure 87.00 mm[Hg] Wed Sep 25 15:49:00 EDT 2023 Heart Rate 86.00 /min Wed Sep 25 15:49 :00 EDT 2023 Respiratory rate 18.00 /min Wed Sep 25 15:4 9:00 EDT 2023 Pulse Oximetry 94.00 % Wed Sep 25 15:49 :00 EDT 2023 Body temperature 98.10 [degF] Wed Sep 25 15:4 9:00 EDT 2023 Systolic Blood Pressure 132.00 mm[Hg] Wed Sep 25 15:23:52 EDT 2023 Diastolic Blood Pressure 72.00 mm[Hg] Wed Sep 25 15:23:52 EDT 2023 Systolic Blood Pressure 137.00 mm[Hg] Wed Sep 25 12:36:16 EDT 2023 Diastolic Blood Pressure 78.00 mm[Hg] Wed Sep 25 12:36:16 EDT 2023 Heart Rate 77.00 /min Wed Sep 25 12:36 :16 EDT 2023 Pulse Oximetry 94.00 % Wed Sep 25 12:36 :16 EDT 2023 Respiratory rate 18.00 /min Wed Sep 25 12:3 6:16 EDT 2023 Body temperature 98.30 [degF] Wed Sep 25 12:3 6:16 EDT 2023 Systolic Blood Pressure 165.00 mm[Hg] Wed Sep 25 11:01:41 EDT 2023 Diastolic Blood Pressure 87.00 mm[Hg] Wed Sep 25 11:01:41 EDT 2023 Systolic Blood Pressure 165.00 mm[Hg] Wed Sep 25 11:01:41 EDT 2023 Diastolic Blood Pressure 87.00 mm[Hg] Wed Sep 25 11:01:41 EDT 2023 Systolic Blood Pressure 165.00 mm[Hg] Wed Sep 25 11:01:41 EDT 2023 Diastolic Blood Pressure 87.00 mm[Hg] Wed Sep 25 11:01:41 EDT 2023 Systolic Blood Pressure 128.00 mm[Hg] Tue Sep 24 22:14:58 EDT 2023 Diastolic Blood Pressure 88.00 mm[Hg] Tue Sep 24 22:14:58 EDT 2023 Systolic Blood Pressure 128.00 mm[Hg] Tue Sep 24 22:14:58 EDT 2023 Diastolic Blood Pressure 88.00 mm[Hg] Tue Sep 24 22:14:58 EDT 2023 Systolic Blood Pressure 136.00 mm[Hg] Tue Sep 24 12:46:59 EDT 2023 Diastolic Blood Pressure 76.00 mm[Hg] Tue Sep 24 12:46:59 EDT 2023 Systolic Blood Pressure 133.00 mm[Hg] Tue Sep 24 09:38:27 EDT 2023 Diastolic Blood Pressure 77.00 mm[Hg] Tue Sep 24 09:38:27 EDT 2023 Systolic Blood Pressure 133.00 mm[Hg] Tue Sep 24 09:38:27 EDT 2023 Diastolic Blood Pressure 77.00 mm[Hg] Tue Sep 24 09:38:27 EDT 2023 Systolic Blood Pressure 133.00 mm[Hg] Tue Sep 24 09:38:27 EDT 2023 Diastolic Blood Pressure 77.00 mm[Hg] Tue Sep 24 09:38:27 EDT 2023 Systolic Blood Pressure 146.00 mm[Hg] Mon Sep 23 21:03:00 EDT 2023 Diastolic Blood Pressure 74.00 mm[Hg] Mon Sep 23 21:03:00 EDT 2023 Systolic Blood Pressure 146.00 mm[Hg] Mon Sep 23 21:03:00 EDT 2023 Diastolic Blood Pressure 74.00 mm[Hg] Mon Sep 23 21:03:00 EDT 2023 Body weight 293.40 [lb_av] Mon Sep 23 14:27 :18 EDT 2023 Systolic Blood Pressure 137.00 mm[Hg] Mon Sep 23 13:37:47 EDT 2023 Diastolic Blood Pressure 76.00 mm[Hg] Mon Sep 23 13:37:47 EDT 2023 Systolic Blood Pressure 141.00 mm[Hg] Mon Sep 23 10:32:51 EDT 2023 Diastolic Blood Pressure 72.00 mm[Hg] Mon Sep 23 10:32:51 EDT 2023 Systolic Blood Pressure 141.00 mm[Hg] Mon Sep 23 10:32:51 EDT 2023 Diastolic Blood Pressure 72.00 mm[Hg] Mon Sep 23 10:32:51 EDT 2023 Systolic Blood Pressure 141.00 mm[Hg] Mon Sep 23 10:32:51 EDT 2023 Diastolic Blood Pressure 72.00 mm[Hg] Mon Sep 23 10:32:51 EDT 2023 Systolic Blood Pressure 141.00 mm[Hg] Mon Sep 23 08:34:30 EDT 2023 Diastolic Blood Pressure 72.00 mm[Hg] Mon Sep 23 08:34:30 EDT 2023 Heart Rate 77.00 /min Mon Sep 23 08:34 :30 EDT 2023 Body weight 293.40 [lb_av] Mon Sep 23 07:32 :43 EDT 2023 Systolic Blood Pressure 145.00 mm[Hg] Sun Sep 22 20:21:02 EDT 2023 Diastolic Blood Pressure 86.00 mm[Hg] Sun Sep 22 20:21:02 EDT 2023 Systolic Blood Pressure 145.00 mm[Hg] Sun Sep 22 20:21:02 EDT 2023 Diastolic Blood Pressure 86.00 mm[Hg] Sun Sep 22 20:21:02 EDT 2023 Systolic Blood Pressure 139.00 mm[Hg] Sun Sep 22 13:02:22 EDT 2023 Diastolic Blood Pressure 87.00 mm[Hg] Sun Sep 22 13:02:22 EDT 2023 Systolic Blood Pressure 123.00 mm[Hg] Sun Sep 22 08:35:31 EDT 2023 Diastolic Blood Pressure 69.00 mm[Hg] Sun Sep 22 08:35:31 EDT 2023 Systolic Blood Pressure 123.00 mm[Hg] Sun Sep 22 08:35:31 EDT 2024 Diastolic Blood Pressure 69.00 mm[Hg] Sun Sep 22 08:35:31 EDT 4 Systolic Blood Pressure 123.00 mm[Hg] Sun Sep 22 08:35:31 EDT 2023 Diastolic Blood Pressure 69.00 mm[Hg] Sun Sep 22 08:35:31 EDT 4 Systolic Blood Pressure 123.00 mm[Hg] Sun Sep 22 08:15:42 EDT 2023 Diastolic Blood Pressure 69.00 mm[Hg] Sun Sep 22 08:15:42 EDT 2023 Pulse Oximetry 92.00 % Sun Sep 22 08:15 :42 EDT 2023 Heart Rate 65.00 /min Sun Sep 22 08:15 :42 EDT 2023 Body temperature 98.60 [degF] Sun Sep 22 08:1 5:42 EDT 2023 Systolic Blood Pressure 132.00 mm[Hg] Sat Sep 21 19:37:05 EDT 2023 Diastolic Blood Pressure 76.00 mm[Hg] Sat Sep 21 19:37:05 EDT 2023 Systolic Blood Pressure 132.00 mm[Hg] Sat Sep 21 19:37:05 EDT 2023 Diastolic Blood Pressure 76.00 mm[Hg] Sat Sep 21 19:37:05 EDT 4 Systolic Blood Pressure 144.00 mm[Hg] Sat Sep 21 12:51:21 EDT 2023 Diastolic Blood Pressure 86.00 mm[Hg] Sat Sep 21 12:51:21 EDT 2023 Systolic Blood Pressure 148.00 mm[Hg] Sat Sep 21 09:36:13 EDT 2023 Diastolic Blood Pressure 79.00 mm[Hg] Sat Sep 21 09:36:13 EDT 2023 Systolic Blood Pressure 148.00 mm[Hg] Sat Sep 21 09:36:13 EDT 2023 Diastolic Blood Pressure 79.00 mm[Hg] Sat Sep 21 09:36:13 EDT 4 Systolic Blood Pressure 148.00 mm[Hg] Sat Sep 21 09:36:13 EDT 2023 Diastolic Blood Pressure 79.00 mm[Hg] Sat Sep 21 09:36:13 EDT 2023 Systolic Blood Pressure 148.00 mm[Hg] Fri Sep 20 22:27:04 EDT 2023 Diastolic Blood Pressure 75.00 mm[Hg] Fri Sep 20 22:27:04 EDT 2023 Systolic Blood Pressure 148.00 mm[Hg] Fri Sep 20 22:27:04 EDT 2023 Diastolic Blood Pressure 75.00 mm[Hg] Fri Sep 20 22:27:04 EDT 4 Systolic Blood Pressure 131.00 mm[Hg] Fri Sep 20 13:17:24 EDT 2023 Diastolic Blood Pressure 81.00 mm[Hg] Fri Sep 20 13:17:24 EDT 2023 Systolic Blood Pressure 152.00 mm[Hg] Fri Sep 20 09:33:55 EDT 2023 Diastolic Blood Pressure 89.00 mm[Hg] Fri Sep 20 09:33:55 EDT 2023 Systolic Blood Pressure 152.00 mm[Hg] Fri Sep 20 09:33:55 EDT 2023 Diastolic Blood Pressure 89.00 mm[Hg] Fri Sep 20 09:33:55 EDT 2023 Systolic Blood Pressure 152.00 mm[Hg] Fri Sep 20 09:33:55 EDT 2023 Diastolic Blood Pressure 89.00 mm[Hg] Fri Sep 20 09:33:55 EDT 2023 Systolic Blood Pressure 131.00 mm[Hg] Fri Sep 20 06:20:00 EDT 2023 Diastolic Blood Pressure 72.00 mm[Hg] Fri Sep 20 06:20:00 EDT 2023 Heart Rate 78.00 /min Fri Sep 20 06:20 :00 EDT 2023 Respiratory rate 20.00 /min Fri Sep 20 06:2 0:00 EDT 2023 Pulse Oximetry 94.00 % Fri Sep 20 06:20 :00 EDT 2023 Body temperature 98.00 [degF] Fri Sep 20 06:2 0:00 EDT 2023 Systolic Blood Pressure 124.00 mm[Hg] Samantha Sep 19 21:54:04 EDT 2023 Diastolic Blood Pressure 74.00 mm[Hg] Samantha Sep 19 21:54:04 EDT 2023 Systolic Blood Pressure 124.00 mm[Hg] Samantha Sep 19 21:54:04 EDT 2023 Diastolic Blood Pressure 74.00 mm[Hg] Samantha Sep 19 21:54:04 EDT 2023 Systolic Blood Pressure 154.00 mm[Hg] Samantha Sep 19 13:52:25 EDT 2023 Diastolic Blood Pressure 90.00 mm[Hg] Samantha Sep 19 13:52:25 EDT 2023 Systolic Blood Pressure 125.00 mm[Hg] Samantha Sep 19 09:43:33 EDT 2023 Diastolic Blood Pressure 91.00 mm[Hg] Samantha Sep 19 09:43:33 EDT 2023 Systolic Blood Pressure 125.00 mm[Hg] Samantha Sep 19 09:43:33 EDT 2023 Diastolic Blood Pressure 91.00 mm[Hg] Samantha Sep 19 09:43:33 EDT 2023 Systolic Blood Pressure 125.00 mm[Hg] Samantha Sep 19 09:43:33 EDT 2023 Diastolic Blood Pressure 91.00 mm[Hg] Samantha Sep 19 09:43:33 EDT 2023 Systolic Blood Pressure 165.00 mm[Hg] Samantha Sep 19 07:39:19 EDT 2023 Diastolic Blood Pressure 90.00 mm[Hg] Samantha Sep 19 07:39:19 EDT 2023 Heart Rate 86.00 /min Samantha Sep 19 07:39 :19 EDT 2023 Systolic Blood Pressure 136.00 mm[Hg] Wed Sep 18 21:06:03 EDT 2023 Diastolic Blood Pressure 75.00 mm[Hg] Wed Sep 18 21:06:03 EDT 2023 Systolic Blood Pressure 136.00 mm[Hg] Wed Sep 18 21:06:03 EDT 2023 Diastolic Blood Pressure 75.00 mm[Hg] Wed Sep 18 21:06:03 EDT 4 Systolic Blood Pressure 140.00 mm[Hg] Wed Sep 18 14:22:22 EDT 2023 Diastolic Blood Pressure 85.00 mm[Hg] Wed Sep 18 14:22:22 EDT 2023 Systolic Blood Pressure 131.00 mm[Hg] Wed Sep 18 10:28:30 EDT 2023 Diastolic Blood Pressure 72.00 mm[Hg] Wed Sep 18 10:28:30 EDT 2023 Systolic Blood Pressure 131.00 mm[Hg] Wed Sep 18 10:28:30 EDT 2023 Diastolic Blood Pressure 72.00 mm[Hg] Wed Sep 18 10:28:30 EDT 2023 Systolic Blood Pressure 131.00 mm[Hg] Wed Sep 18 10:28:30 EDT 2023 Diastolic Blood Pressure 72.00 mm[Hg] Wed Sep 18 10:28:30 EDT 2023 Systolic Blood Pressure 131.00 mm[Hg] Wed Sep 18 10:28:30 EDT 2023 Diastolic Blood Pressure 72.00 mm[Hg] Wed Sep 18 10:28:30 EDT 2023 Heart Rate 93.00 /min Wed Sep 18 10:28 :30 EDT 2023 Pulse Oximetry 94.00 % Wed Sep 18 10:28 :30 EDT 2023 Respiratory rate 20.00 /min Wed Sep 18 10:2 8:30 EDT 4 Body temperature 98.80 [degF] Wed Sep 18 10:2 8:30 EDT 2023 Systolic Blood Pressure 131.00 mm[Hg] Wed Sep 18 09:22:37 EDT 4 Diastolic Blood Pressure 72.00 mm[Hg] Wed Sep 18 09:22:37 EDT 2023 Pulse Oximetry 94.00 % Wed Sep 18 09:22 :37 EDT 2023 Heart Rate 93.00 /min Wed Sep 18 09:22 :37 EDT 4 Systolic Blood Pressure 142.00 mm[Hg] Tue Sep 17 20:16:31 EDT 2023 Diastolic Blood Pressure 74.00 mm[Hg] Tue Sep 17 20:16:31 EDT 2023 Systolic Blood Pressure 142.00 mm[Hg] Tue Sep 17 20:16:31 EDT 4 Diastolic Blood Pressure 74.00 mm[Hg] Tue Sep 17 20:16:31 EDT 4 Systolic Blood Pressure 139.00 mm[Hg] Tue Sep 17 13:12:49 EDT 4 Diastolic Blood Pressure 49.00 mm[Hg] Tue Sep 17 13:12:49 EDT 4 Systolic Blood Pressure 139.00 mm[Hg] Tue Sep 17 09:26:54 EDT 4 Diastolic Blood Pressure 49.00 mm[Hg] Tue Sep 17 09:26:54 EDT 4 Systolic Blood Pressure 139.00 mm[Hg] Tue Sep 17 09:26:54 EDT 4 Diastolic Blood Pressure 49.00 mm[Hg] Tue Sep 17 09:26:54 EDT 4 Systolic Blood Pressure 139.00 mm[Hg] Tue Sep 17 09:26:54 EDT 4 Diastolic Blood Pressure 49.00 mm[Hg] Tue Sep 17 09:26:54 EDT 4 Systolic Blood Pressure 139.00 mm[Hg] Tue Sep 17 08:03:17 EDT 4 Diastolic Blood Pressure 49.00 mm[Hg] Tue Sep 17 08:03:17 EDT 4 Heart Rate 83.00 /min Tue Sep 17 08:03 :17 EDT 2023 Systolic Blood Pressure 140.00 mm[Hg] Mon Sep 16 21:09:37 EDT 2024 Diastolic Blood Pressure 82.00 mm[Hg] Mon Sep 16 21:09:37 EDT 4 Systolic Blood Pressure 140.00 mm[Hg] Mon Sep 16 21:09:37 EDT 4 Diastolic Blood Pressure 82.00 mm[Hg] Mon Sep 16 21:09:37 EDT 4 Systolic Blood Pressure 143.00 mm[Hg] Mon Sep 16 14:47:18 EDT 2023 Diastolic Blood Pressure 80.00 mm[Hg] Mon Sep 16 14:47:18 EDT 2023 Systolic Blood Pressure 140.00 mm[Hg] Mon Sep 16 09:36:17 EDT 2023 Diastolic Blood Pressure 79.00 mm[Hg] Mon Sep 16 09:36:17 EDT 2023 Systolic Blood Pressure 140.00 mm[Hg] Mon Sep 16 09:36:17 EDT 2023 Diastolic Blood Pressure 79.00 mm[Hg] Mon Sep 16 09:36:17 EDT 2023 Systolic Blood Pressure 140.00 mm[Hg] Mon Sep 16 09:36:17 EDT 2023 Diastolic Blood Pressure 79.00 mm[Hg] Mon Sep 16 09:36:17 EDT 2023 Systolic Blood Pressure 140.00 mm[Hg] Mon Sep 16 09:10:04 EDT 4 Diastolic Blood Pressure 79.00 mm[Hg] Mon Sep 16 09:10:04 EDT 4 Respiratory rate 20.00 /min Mon Sep 16 09:1 0:04 EDT 2023 Pulse Oximetry 94.00 % Mon Sep 16 09:10 :04 EDT 2023 Heart Rate 72.00 /min Mon Sep 16 09:10 :04 EDT 2023 Systolic Blood Pressure 145.00 mm[Hg] Sun Sep 15 23:19:33 EDT 2023 Diastolic Blood Pressure 86.00 mm[Hg] Sun Sep 15 23:19:33 EDT 2023 Systolic Blood Pressure 145.00 mm[Hg] Sun Sep 15 23:19:33 EDT 2023 Diastolic Blood Pressure 86.00 mm[Hg] Sun Sep 15 23:19:33 EDT 2023 Systolic Blood Pressure 172.00 mm[Hg] Sun Sep 15 16:31:00 EDT 2023 Diastolic Blood Pressure 82.00 mm[Hg] Sun Sep 15 16:31:00 EDT 2023 Heart Rate 102.00 /min Sun Sep 15 16:31 :00 EDT 2024 Respiratory rate 22.00 /min Sun Sep 15 16:3 1:00 EDT 4 Systolic Blood Pressure 138.00 mm[Hg] Sun Sep 15 13:17:29 EDT 4 Diastolic Blood Pressure 98.00 mm[Hg] Sun Sep 15 13:17:29 EDT 2023 Systolic Blood Pressure 139.00 mm[Hg] Sun Sep 15 10:18:07 EDT 4 Diastolic Blood Pressure 73.00 mm[Hg] Sun Sep 15 10:18:07 EDT 4 Systolic Blood Pressure 139.00 mm[Hg] Sun Sep 15 10:18:07 EDT 2023 Diastolic Blood Pressure 73.00 mm[Hg] Sun Sep 15 10:18:07 EDT 4 Systolic Blood Pressure 139.00 mm[Hg] Sun Sep 15 10:18:07 EDT 2023 Diastolic Blood Pressure 73.00 mm[Hg] Sun Sep 15 10:18:07 EDT 4 Systolic Blood Pressure 146.00 mm[Hg] Sat Sep 14 21:58:20 EDT 2023 Diastolic Blood Pressure 61.00 mm[Hg] Sat Sep 14 21:58:20 EDT 4 Systolic Blood Pressure 146.00 mm[Hg] Sat Sep 14 21:58:20 EDT 4 Diastolic Blood Pressure 61.00 mm[Hg] Sat Sep 14 21:58:20 EDT 4 Systolic Blood Pressure 142.00 mm[Hg] Sat Sep 14 13:06:14 EDT 2023 Diastolic Blood Pressure 80.00 mm[Hg] Sat Sep 14 13:06:14 EDT 4 Systolic Blood Pressure 117.00 mm[Hg] Sat Sep 14 08:37:14 EDT 4 Diastolic Blood Pressure 61.00 mm[Hg] Sat Sep 14 08:37:14 EDT 4 Systolic Blood Pressure 117.00 mm[Hg] Sat Sep 14 08:37:14 EDT 4 Diastolic Blood Pressure 61.00 mm[Hg] Sat Sep 14 08:37:14 EDT 4 Systolic Blood Pressure 117.00 mm[Hg] Sat Sep 14 08:37:14 EDT 2023 Diastolic Blood Pressure 61.00 mm[Hg] Sat Sep 14 08:37:14 EDT 4 Systolic Blood Pressure 117.00 mm[Hg] Sat Sep 14 07:34:18 EDT 4 Diastolic Blood Pressure 61.00 mm[Hg] Sat Sep 14 07:34:18 EDT 2023 Heart Rate 82.00 /min Sat Sep 14 07:34 :18 EDT 4 Systolic Blood Pressure 138.00 mm[Hg] Fri Sep 13 20:45:01 EDT 2023 Diastolic Blood Pressure 75.00 mm[Hg] Fri Sep 13 20:45:01 EDT 2023 Systolic Blood Pressure 138.00 mm[Hg] Fri Sep 13 20:45:01 EDT 2023 Diastolic Blood Pressure 75.00 mm[Hg] Fri Sep 13 20:45:01 EDT 2023 Systolic Blood Pressure 146.00 mm[Hg] Fri Sep 13 13:27:41 EDT 2023 Diastolic Blood Pressure 80.00 mm[Hg] Fri Sep 13 13:27:41 EDT 2023 Systolic Blood Pressure 150.00 mm[Hg] Fri Sep 13 09:57:28 EDT 2023 Diastolic Blood Pressure 79.00 mm[Hg] Fri Sep 13 09:57:28 EDT 2023 Systolic Blood Pressure 150.00 mm[Hg] Fri Sep 13 09:57:28 EDT 2023 Diastolic Blood Pressure 79.00 mm[Hg] Fri Sep 13 09:57:28 EDT 2023 Systolic Blood Pressure 150.00 mm[Hg] Fri Sep 13 09:57:28 EDT 2023 Diastolic Blood Pressure 79.00 mm[Hg] Fri Sep 13 09:57:28 EDT 2023 Systolic Blood Pressure 150.00 mm[Hg] Fri Sep 13 08:00:19 EDT 2023 Diastolic Blood Pressure 79.00 mm[Hg] Fri Sep 13 08:00:19 EDT 2023 Heart Rate 91.00 /min Fri Sep 13 08:00 :19 EDT 2023 Systolic Blood Pressure 142.00 mm[Hg] Samantha Sep 12 19:58:27 EDT 2023 Diastolic Blood Pressure 77.00 mm[Hg] Samantha Sep 12 19:58:27 EDT 2023 Systolic Blood Pressure 142.00 mm[Hg] Samantha Sep 12 19:58:27 EDT 2023 Diastolic Blood Pressure 77.00 mm[Hg] Samantha Sep 12 19:58:27 EDT 2023 Systolic Blood Pressure 148.00 mm[Hg] Samantha Sep 12 13:02:55 EDT 2023 Diastolic Blood Pressure 97.00 mm[Hg] Samantha Sep 12 13:02:55 EDT 2023 Systolic Blood Pressure 176.00 mm[Hg] Samantha Sep 12 09:55:54 EDT 2023 Diastolic Blood Pressure 96.00 mm[Hg] Samantha Sep 12 09:55:54 EDT 2023 Systolic Blood Pressure 176.00 mm[Hg] Samantha Sep 12 09:55:54 EDT 2023 Diastolic Blood Pressure 96.00 mm[Hg] Samantha Sep 12 09:55:54 EDT 2023 Systolic Blood Pressure 176.00 mm[Hg] Samantha Sep 12 09:55:54 EDT 2023 Diastolic Blood Pressure 96.00 mm[Hg] Samantha Sep 12 09:55:54 EDT 2023 Systolic Blood Pressure 142.00 mm[Hg] Wed Sep 11 20:15:14 EDT 2023 Diastolic Blood Pressure 94.00 mm[Hg] Wed Sep 11 20:15:14 EDT 2023 Systolic Blood Pressure 142.00 mm[Hg] Wed Sep 11 20:15:14 EDT 2023 Diastolic Blood Pressure 94.00 mm[Hg] Wed Sep 11 20:15:14 EDT 2023 Systolic Blood Pressure 143.00 mm[Hg] Wed Sep 11 16:26:08 EDT 2023 Diastolic Blood Pressure 82.00 mm[Hg] Wed Sep 11 16:26:08 EDT 4 Systolic Blood Pressure 142.00 mm[Hg] Wed Sep 11 10:51:13 EDT 2023 Diastolic Blood Pressure 67.00 mm[Hg] Wed Sep 11 10:51:13 EDT 2023 Heart Rate 68.00 /min Wed Sep 11 10:51 :13 EDT 2023 Pulse Oximetry 94.00 % Wed Sep 11 10:51 :13 EDT 4 Respiratory rate 20.00 /min Wed Sep 11 10:5 1:13 EDT 2023 Body temperature 98.40 [degF] Wed Sep 11 10:5 1:13 EDT 4 Systolic Blood Pressure 142.00 mm[Hg] Wed Sep 11 09:43:01 EDT 4 Diastolic Blood Pressure 67.00 mm[Hg] Wed Sep 11 09:43:01 EDT 2023 Systolic Blood Pressure 142.00 mm[Hg] Wed Sep 11 09:43:01 EDT 2023 Diastolic Blood Pressure 67.00 mm[Hg] Wed Sep 11 09:43:01 EDT 2023 Systolic Blood Pressure 142.00 mm[Hg] Wed Sep 11 09:43:01 EDT 2023 Diastolic Blood Pressure 67.00 mm[Hg] Wed Sep 11 09:43:01 EDT 2023 Systolic Blood Pressure 135.00 mm[Hg] Tue Sep 10 21:39:20 EDT 2023 Diastolic Blood Pressure 82.00 mm[Hg] Tue Sep 10 21:39:20 EDT 2023 Systolic Blood Pressure 135.00 mm[Hg] Tue Sep 10 21:39:20 EDT 2023 Diastolic Blood Pressure 82.00 mm[Hg] Tue Sep 10 21:39:20 EDT 2023 Systolic Blood Pressure 147.00 mm[Hg] Tue Sep 10 13:07:10 EDT 2023 Diastolic Blood Pressure 97.00 mm[Hg] Tue Sep 10 13:07:10 EDT 2023 Body Height 70.00 [in_i] Tue Sep 10 11:04 :22 EDT 2023 Systolic Blood Pressure 158.00 mm[Hg] Tue Sep 10 09:03:40 EDT 2023 Diastolic Blood Pressure 77.00 mm[Hg] Tue Sep 10 09:03:40 EDT 2023 Systolic Blood Pressure 158.00 mm[Hg] Tue Sep 10 09:03:40 EDT 2023 Diastolic Blood Pressure 77.00 mm[Hg] Tue Sep 10 09:03:40 EDT 2023 Systolic Blood Pressure 158.00 mm[Hg] Tue Sep 10 09:03:40 EDT 2023 Diastolic Blood Pressure 77.00 mm[Hg] Tue Sep 10 09:03:40 EDT 2023 Systolic Blood Pressure 158.00 mm[Hg] Tue Sep 10 07:57:22 EDT 2023 Diastolic Blood Pressure 77.00 mm[Hg] Tue Sep 10 07:57:22 EDT 2023 Heart Rate 88.00 /min Tue Sep 10 07:57 :22 EDT 2023 Body weight 287.80 [lb_av] Tue Sep 10 07:48 :04 EDT 2023 Systolic Blood Pressure 138.00 mm[Hg] Mon Sep 09 21:14:53 EDT 2023 Diastolic Blood Pressure 74.00 mm[Hg] Mon Sep 09 21:14:53 EDT 2023 Systolic Blood Pressure 138.00 mm[Hg] Mon Sep 09 21:14:53 EDT 2023 Diastolic Blood Pressure 74.00 mm[Hg] Mon Sep 09 21:14:53 EDT 2023 Body weight 287.60 [lb_av] Mon Sep 09 15:19 :19 EDT 4 Systolic Blood Pressure 130.00 mm[Hg] Mon Sep 09 15:13:39 EDT 4 Diastolic Blood Pressure 77.00 mm[Hg] Mon Sep 09 15:13:39 EDT 4 Systolic Blood Pressure 150.00 mm[Hg] Mon Sep 09 11:58:15 EDT 4 Diastolic Blood Pressure 83.00 mm[Hg] Mon Sep 09 11:58:15 EDT 2023 Systolic Blood Pressure 150.00 mm[Hg] Mon Sep 09 11:58:15 EDT 2023 Diastolic Blood Pressure 83.00 mm[Hg] Mon Sep 09 11:58:15 EDT 4 Systolic Blood Pressure 150.00 mm[Hg] Mon Sep 09 11:58:15 EDT 2023 Diastolic Blood Pressure 83.00 mm[Hg] Mon Sep 09 11:58:15 EDT 2023 Systolic Blood Pressure 129.00 mm[Hg] Sun Sep 08 20:59:13 EDT 2023 Diastolic Blood Pressure 77.00 mm[Hg] Sun Sep 08 20:59:13 EDT 2023 Systolic Blood Pressure 129.00 mm[Hg] Sun Sep 08 20:59:13 EDT 2023 Diastolic Blood Pressure 77.00 mm[Hg] Sun Sep 08 20:59:13 EDT 4 Systolic Blood Pressure 133.00 mm[Hg] Sun Sep 08 13:04:22 EDT 2023 Diastolic Blood Pressure 74.00 mm[Hg] Sun Sep 08 13:04:22 EDT 4 Systolic Blood Pressure 146.00 mm[Hg] Sun Sep 08 10:51:19 EDT 2023 Diastolic Blood Pressure 80.00 mm[Hg] Sun Sep 08 10:51:19 EDT 2023 Systolic Blood Pressure 146.00 mm[Hg] Sun Sep 08 10:51:19 EDT 2023 Diastolic Blood Pressure 80.00 mm[Hg] Sun Sep 08 10:51:19 EDT 2023 Systolic Blood Pressure 146.00 mm[Hg] Sun Sep 08 10:51:19 EDT 2023 Diastolic Blood Pressure 80.00 mm[Hg] Sun Sep 08 10:51:19 EDT 2023 Systolic Blood Pressure 146.00 mm[Hg] Sun Sep 08 07:44:45 EDT 2023 Diastolic Blood Pressure 80.00 mm[Hg] Sun Sep 08 07:44:45 EDT 2023 Heart Rate 80.00 /min Sun Sep 08 07:44 :45 EDT 2023 Pulse Oximetry 94.00 % Sun Sep 08 07:44 :45 EDT 2023 Systolic Blood Pressure 128.00 mm[Hg] Sat Sep 07 20:25:55 EDT 2023 Diastolic Blood Pressure 86.00 mm[Hg] Sat Sep 07 20:25:55 EDT 2023 Systolic Blood Pressure 128.00 mm[Hg] Sat Sep 07 20:25:55 EDT 2023 Diastolic Blood Pressure 86.00 mm[Hg] Sat Sep 07 20:25:55 EDT 2023 Systolic Blood Pressure 135.00 mm[Hg] Sat Sep 07 13:07:38 EDT 2023 Diastolic Blood Pressure 83.00 mm[Hg] Sat Sep 07 13:07:38 EDT 2023 Systolic Blood Pressure 132.00 mm[Hg] Sat Sep 07 10:57:15 EDT 2023 Diastolic Blood Pressure 66.00 mm[Hg] Sat Sep 07 10:57:15 EDT 2023 Systolic Blood Pressure 132.00 mm[Hg] Sat Sep 07 10:57:15 EDT 2023 Diastolic Blood Pressure 66.00 mm[Hg] Sat Sep 07 10:57:15 EDT 2023 Systolic Blood Pressure 132.00 mm[Hg] Sat Sep 07 10:57:15 EDT 2023 Diastolic Blood Pressure 66.00 mm[Hg] Sat Sep 07 10:57:15 EDT 2023 Systolic Blood Pressure 132.00 mm[Hg] Sat Sep 07 07:45:48 EDT 2023 Diastolic Blood Pressure 66.00 mm[Hg] Sat Sep 07 07:45:48 EDT 2023 Pulse Oximetry 93.00 % Sat Sep 07 07:45 :48 EDT 2023 Heart Rate 80.00 /min Sat Sep 07 07:45 :48 EDT 2023 Systolic Blood Pressure 136.00 mm[Hg] Sat Sep 07 00:53:21 EDT 2023 Diastolic Blood Pressure 81.00 mm[Hg] Sat Sep 07 00:53:21 EDT 2023 Systolic Blood Pressure 136.00 mm[Hg] Sat Sep 07 00:53:21 EDT 2023 Diastolic Blood Pressure 81.00 mm[Hg] Sat Sep 07 00:53:21 EDT 2023 Systolic Blood Pressure 136.00 mm[Hg] Fri Sep 06 19:37:00 EDT 2023 Diastolic Blood Pressure 81.00 mm[Hg] Fri Sep 06 19:37:00 EDT 2023 Heart Rate 91.00 /min SatMar 06 19:37 :00 EDT 2023 Respiratory rate 18.00 /min SatMar 06 19:3 7:00 EDT 2023 Pulse Oximetry 95.00 % SatMar 06 19:37 :00 EDT 2023 Body temperature 97.80 [degF] SatMar 06 19:3 7:00 EDT 2023 Systolic Blood Pressure 133.00 mm[Hg] [facility] 05 18:19:40 EDT 2023 Diastolic Blood Pressure 57.00 mm[Hg] [facility] 18:19:40 EDT 2023 Heart Rate 92.00 /min [facility] 18:19 :40 EDT 2023 Respiratory rate 18.00 /min [facility] 18:1 9:40 EDT 2023 Body temperature 97.40 [degF] [facility] 18:1 9:40 EDT 2023 Body weight 289.40 [lb_av] [facility] 18:19 :40 EDT 2023 Body weight 288.00 [lb_av] [facility] Mar 04 17:49 :57 EDT 2023 Body weight 295.80 [lb_av] SatFeb 25 12:51 :41 EDT 2023 Body weight 295.20 [lb_av] SatFeb 18 15:30 :37 EDT 2023 Systolic Blood Pressure 0.00 mm[Hg] SatFeb 16 20:28:09 EDT 2023 Diastolic Blood Pressure 0.00 mm[Hg] SatFeb 16 20:28:09 EDT 2023 Heart Rate 0.00 /min SatFeb 16 20:28 :09 EDT 2023 Respiratory rate 0.00 /min SatFeb 16 20:2 8:09 EDT 2023 Body temperature 0.00 [degF] SatFeb 16 20:2 8:09 EDT 2023 Body weight 295.00 [lb_av] SatFeb 16 20:28 :09 EDT 2023 Systolic Blood Pressure 147.00 mm[Hg] SatFeb 11 23:38:00 EDT 2023 Diastolic Blood Pressure 82.00 mm[Hg] SatFeb 11 23:38:00 EDT 2023 Heart Rate 87.00 /min SatFeb 11 23:38 :00 EDT 2023 Respiratory rate 20.00 /min SatFeb 11 23:3 8:00 EDT 2023 Pulse Oximetry 91.00 % SatFeb 11 23:38 :00 EDT 2023 Body weight 294.20 [lb_av] SatFeb 11 16:26 :36 EDT 2023 Body weight 292.60 [lb_av] SatFeb 04 11:11 :17 EDT 2023 Systolic Blood Pressure 0.00 mm[Hg] SatFeb 02 20:33:56 EDT 2023 Diastolic Blood Pressure 0.00 mm[Hg] SatFeb 02 20:33:56 EDT 2023 Heart Rate 0.00 /min SatFeb 02 20:33 :56 EDT 2023 Respiratory rate 0.00 /min SatFeb 02 20:3 3:56 EDT 2023 Body temperature 0.00 [degF] SatFeb 02 20:3 3:56 EDT 2023 Body weight 0.00 [lb_av] SatFeb 02 20:33 :56 EDT 2023 Systolic Blood Pressure 116.00 mm[Hg] SatJan 30 14:00:00 EDT 2023 Diastolic Blood Pressure 78.00 mm[Hg] SatJan 30 14:00:00 EDT 2023 Heart Rate 111.00 /min SatJan 30 14:00 :00 EDT 2023 Pulse Oximetry 94.00 % SatJan 30 14:00 :00 EDT 2023 Body weight 294.60 [lb_av] SatJan 28 16:02 :01 EDT 2023 Body weight 291.80 [lb_av] SatJan 21 14:44 :02 EDT 2023 Systolic Blood Pressure 163.00 mm[Hg] SatJan 16 18:09:27 EDT 2023 Diastolic Blood Pressure 74.00 mm[Hg] SatJan 16 18:09:27 EDT 2023 Heart Rate 60.00 /min SatJan 16 18:09 :27 EDT 2023 Respiratory rate 18.00 /min SatJan 16 18:0 9:27 EDT 2023 Body temperature 97.50 [degF] SatJan 16 18:0 9:27 EDT 2023 Body weight 294.00 [lb_av] SatJan 16 18:09 :27 EDT 2023 Body weight 285.20 [lb_av] SatJan 14 18:08 :20 EDT 2023 Body weight 283.00 [lb_av] SatJan 07 11:38 :59 EDT 2023 Systolic Blood Pressure 159.00 mm[Hg] SatJan 03 14:15:39 EDT 2023 Diastolic Blood Pressure 84.00 mm[Hg] Sat Jan 03 14:15:39 EDT 4 Heart Rate 111.00 /min Sat Jan 03 14:15 :39 EDT 2023 Respiratory rate 18.00 /min Sat Jan 03 14:1 5:39 EDT 2023 Body temperature 97.30 [degF] Sat Jan 03 14:1 5:39 EDT 2023 Body weight 284.00 [lb_av] Sat Jan 03 14:15 :39 EDT 2023 Systolic Blood Pressure 165.00 mm[Hg] SatDec 17 20:51:23 EDT 2023 Diastolic Blood Pressure 75.00 mm[Hg] SatDec 17 20:51:23 EDT 2023 Heart Rate 68.00 /min SatDec 17 20:51 :23 EDT 2023 Respiratory rate 18.00 /min SatDec 17 20:5 1:23 EDT 2023 Body temperature 98.60 [degF] SatDec 17 20:5 1:23 EDT 2023 Body weight 298.00 [lb_av] SatDec 17 20:51 :23 EDT 2023 Body weight 281.80 [lb_av] [facility] Dec 11 13:03 :45 EDT 2023 Systolic Blood Pressure 138.00 mm[Hg] SatDec 08 16:00:00 EDT 2023 Diastolic Blood Pressure 81.00 mm[Hg] SatDec 08 16:00:00 EDT 2023 Heart Rate 83.00 /min SatDec 08 16:00 :00 EDT 2023 Respiratory rate 18.00 /min SatDec 08 16:0 0:00 EDT 2023 Pulse Oximetry 92.00 % SatDec 08 16:00 :00 EDT 2023 Body temperature 97.00 [degF] SatDec 08 16:0 0:00 EDT 2023 Body weight 292.00 [lb_av] SatDec 05 17:01 :27 EDT 2023 Systolic Blood Pressure 151.00 mm[Hg] SatDec 03 22:21:54 EDT 2023 Diastolic Blood Pressure 82.00 mm[Hg] SatDec 03 22:21:54 EDT 2023 Heart Rate 60.00 /min SatDec 03 22:21 :54 EDT 2023 Respiratory rate 20.00 /min SatDec 03 22:2 1:54 EDT 2023 Body temperature 98.80 [degF] SatDec 03 22:2 1:54 EDT 2023 Systolic Blood Pressure 128.00 mm[Hg] SatNovember 17 12:42:18 EDT 2023 Diastolic Blood Pressure 66.00 mm[Hg] SatNovember 17 12:42:18 EDT 2023 Heart Rate 97.00 /min SatNovember 17 12:42 :18 EDT 2023 Respiratory rate 18.00 /min SatNovember 17 12:4 2:18 EDT 2023 Body temperature 97.70 [degF] SatNovember 17 12:4 2:18 EDT 2023 Body weight 292.20 [lb_av] SatNovember 17 12:42 :18 EDT 2023 Systolic Blood Pressure 138.00 mm[Hg] SatNovember 13 13:22:53 EDT 2023 Diastolic Blood Pressure 81.00 mm[Hg] SatNovember 13 13:22:53 EDT 2023 Systolic Blood Pressure 158.00 mm[Hg] SatNovember 02 20:17:23 EDT 2023 Diastolic Blood Pressure 88.00 mm[Hg] SatNovember 02 20:17:23 EDT 2023 Heart Rate 70.00 /min SatNovember 02 20:17 :23 EDT 2023 Respiratory rate 22.00 /min SatNovember 02 20:1 7:23 EDT 2023 Body temperature 97.30 [degF] SatNovember 02 20:1 7:23 EDT 2023 Body weight 285.80 [lb_av] SatNovember 02 20:17 :23 EDT 2023 Systolic Blood Pressure 146.00 mm[Hg] SatOct 21 01:03:00 EDT 2023 Diastolic Blood Pressure 73.00 mm[Hg] SatOct 21 01:03:00 EDT 2023 Heart Rate 83.00 /min SatOct 21 01:03 :00 EDT 2023 Respiratory rate 22.00 /min SatOct 21 01:0 3:00 EDT 2023 Pulse Oximetry 97.00 % SatOct 21 01:03 :00 EDT 2023 Body temperature 98.70 [degF] SatOct 21 01:0 3:00 EDT 2023 Systolic Blood Pressure 145.00 mm[Hg] SatOct 17 19:28:52 EDT 2023 Diastolic Blood Pressure 76.00 mm[Hg] SatOct 17 19:28:52 EDT 2023 Heart Rate 88.00 /min SatOct 17 19:28 :52 EDT 2024 Respiratory rate 16.00 /min SatOct 17 19:2 8:52 EDT 2023 Body temperature 98.10 [degF] SatOct 17 19:2 8:52 EDT 2023 Body weight 285.80 [lb_av] SatOct 17 19:28 :52 EDT 2023 Systolic Blood Pressure 145.00 mm[Hg] SatOct 17 17:04:40 EDT 2023 Diastolic Blood Pressure 76.00 mm[Hg] SatOct 17 17:04:40 EDT 2023 Heart Rate 88.00 /min SatOct 17 17:04 :40 EDT 2023 Systolic Blood Pressure 135.00 mm[Hg] SatOct 17 11:40:12 EDT 2023 Diastolic Blood Pressure 64.00 mm[Hg] SatOct 17 11:40:12 EDT 2023 Heart Rate 60.00 /min SatOct 17 11:40 :12 EDT 2023 Systolic Blood Pressure 164.00 mm[Hg] Samantha Sep 18 23:10:58 EDT 2023 Diastolic Blood Pressure 89.00 mm[Hg] Samantha Sep 18 23:10:58 EDT 2023 Heart Rate 89.00 /min Samantha Sep 18 23:10 :58 EDT 2023 Systolic Blood Pressure 164.00 mm[Hg] Samantha Sep 18 09:34:58 EDT 2023 Diastolic Blood Pressure 90.00 mm[Hg] Samantha Sep 18 09:34:58 EDT 2023 Heart Rate 67.00 /min Samantha Sep 18 09:34 :58 EDT 2023 Systolic Blood Pressure 172.00 mm[Hg] SatOct 15 23:10:22 EDT 2023 Diastolic Blood Pressure 78.00 mm[Hg] SatOct 15 23:10:22 EDT 2023 Heart Rate 88.00 /min SatOct 15 23:10 :22 EDT 2023 Systolic Blood Pressure 148.00 mm[Hg] SatOct 15 14:49:58 EDT 2023 Diastolic Blood Pressure 65.00 mm[Hg] SatOct 15 14:49:58 EDT 2023 Heart Rate 74.00 /min SatOct 15 14:49 :58 EDT 2023 Systolic Blood Pressure 140.00 mm[Hg] SatOct 14 16:13:38 EDT 2023 Diastolic Blood Pressure 71.00 mm[Hg] SatOct 14 16:13:38 EDT 2023 Heart Rate 86.00 /min Sat 16 16:13 :38 EDT 2023 Systolic Blood Pressure 132.00 mm[Hg] Sat 16 09:54:41 EDT 2023 Diastolic Blood Pressure 76.00 mm[Hg] Sat 16 09:54:41 EDT 2023 Heart Rate 61.00 /min SatOct 14 09:54 :41 EDT 2023 Systolic Blood Pressure 173.00 mm[Hg] Sat 15 20:02:57 EDT 2023 Diastolic Blood Pressure 95.00 mm[Hg] Sat 15 20:02:57 EDT 2023 Heart Rate 82.00 /min Sat 15 20:02 :57 EDT 2023 Systolic Blood Pressure 114.00 mm[Hg] Sat 15 11:46:54 EDT 2023 Diastolic Blood Pressure 75.00 mm[Hg] Sat 15 11:46:54 EDT 2023 Heart Rate 82.00 /min Sat 15 11:46 :54 EDT 2023 Systolic Blood Pressure 122.00 mm[Hg] [place] Apr 14 22:50:39 EDT 2023 Diastolic Blood Pressure 77.00 mm[Hg] Sun Apr 14 22:50:39 EDT 2023 Heart Rate 68.00 /min [place] Apr 14 22:50 :39 EDT 2023 Systolic Blood Pressure 143.00 mm[Hg] Sun Apr 14 09:20:34 EDT 2023 Diastolic Blood Pressure 82.00 mm[Hg] Sun Apr 14 09:20:34 EDT 2023 Heart Rate 75.00 /min Sun Apr 14 09:20 :34 EDT 2023 Systolic Blood Pressure 139.00 mm[Hg] Sat Apr 13 23:26:49 EDT 2023 Diastolic Blood Pressure 78.00 mm[Hg] Sat Apr 13 23:26:49 EDT 2023 Heart Rate 76.00 /min [facility] Apr 13 23:26 :49 EDT 2023 Systolic Blood Pressure 138.00 mm[Hg] Sat Apr 13 09:32:10 EDT 2023 Diastolic Blood Pressure 75.00 mm[Hg] Sat Apr 13 09:32:10 EDT 2023 Heart Rate 68.00 /min Sat Apr 13 09:32 :10 EDT 2023 Systolic Blood Pressure 160.00 mm[Hg] SatOct 10 20:31:26 EDT 2023 Diastolic Blood Pressure 82.00 mm[Hg] SatOct 10 20:31:26 EDT 2023 Heart Rate 80.00 /min SatOct 10 20:31 :26 EDT 2023 Systolic Blood Pressure 112.00 mm[Hg] SatOct 10 09:41:55 EDT 2023 Diastolic Blood Pressure 68.00 mm[Hg] SatOct 10 09:41:55 EDT 2023 Heart Rate 62.00 /min SatOct 10 09:41 :55 EDT 2023 Systolic Blood Pressure 120.00 mm[Hg] Samantha Oct 09 23:11:29 EDT 2023 Diastolic Blood Pressure 68.00 mm[Hg] Samantha Oct 09 23:11:29 EDT 2023 Heart Rate 77.00 /min [facility] Oct 09 23:11 :29 EDT 2023 Systolic Blood Pressure 146.00 mm[Hg] [facility] Oct 09 11:04:23 EDT 2023 Diastolic Blood Pressure 73.00 mm[Hg] Samantha Oct 09 11:04:23 EDT 2023 Heart Rate 75.00 /min [facility] Oct 09 11:04 :23 EDT 2023 Reason for Referral Past Medical History Resolved Concerns * Problem Constipation, unspecified* Code: * Start Date: SatOctober 30 00:00:00 EDT 2022 * End Date: SatMar 09 00:00:00 EDT 2023 * Problem Chronic kidney disease, stage 3 unspecified* Code: * Start Date: SatOctober 30 00:00:00 EDT 2022 * End Date: SatJun 17 00:00:00 EST 2022 * Problem Migraine, unspecified, not intractable, without status migrainosus* Code: * Start Date: SatOctober 30 00:00:00 EDT 2022 * End Date: SatMar 09 00:00:00 EDT 2023 * Problem Sleep apnea, unspecified* Code: * Start Date: SatOctober 30 00:00:00 EDT 2022 * End Date: SatJun 17 00:00:00 EST 2022 * Problem Apraxia* Code: * Start Date: SatOctober 30 00:00:00 EDT 2022 * End Date: SatMar 09 00:00:00 EDT 2023 * Problem Darion's paralysis (postepileptic)* Code: * Start Date: SatOctober 30 00:00:00 EDT 2022 * End Date: SatMar 09 00:00:00 EDT 2023 * Problem Metabolic encephalopathy* Code: * Start Date: SatOctober 30 00:00:00 EDT 2022 * End Date: SatJun 17 00:00:00 EST 2022 * Problem COVID-19* Code: * Start Date: SatOctober 30 00:00:00 EDT 2022 * End Date: SatJun 17 00:00:00 EST 2022 * Problem Chronic obstructive pulmonary disease with (acute) exacerbation* Code: * Start Date: SatNovember 01 00:00:00 EDT 2022 * End Date: SatJun 17 00:00:00 EST 2022 * Problem Muscle weakness (generalized)* Code: * Start Date: SatNovember 01 00:00:00 EDT 2022 * End Date: SatJun 17 00:00:00 EST 2022 * Problem Cognitive communication deficit* Code: * Start Date: SatNovember 01 00:00:00 EDT 2022 * End Date: SatJun 17 00:00:00 EST 2022 * Problem Abrasion, right hip, subsequent encounter* Code: * Start Date: SatMar 15 00:00:00 EDT 2022 * End Date: SatJun 17 00:00:00 EST 2022 * Problem Pain in right ankle and joints of right foot* Code: * Start Date: SatMar 15 00:00:00 EDT 2022 * End Date: SatJun 17 00:00:00 EST 2022 * Problem Unspecified fall, subsequent encounter* Code: * Start Date: SatMar 15 00:00:00 EDT 2022 * End Date: SatJun 17 00:00:00 EST 2022 * Problem Localized swelling, mass and lump, right upper limb* Code: * Start Date: SatApr 02 00:00:00 EDT 2022 * End Date: SatJun 17 00:00:00 EST 2022 * Problem Abnormal weight gain* Code: * Start Date: SatApr 02 00:00:00 EDT 2022 * End Date: SatJun 17 00:00:00 EST 2022 * Problem Repeated falls* Code: * Start Date: SatApr 18 00:00:00 EDT 2022 * End Date: SatJun 17 00:00:00 EST 2022 * Problem Unspecified open wound of right forearm, subsequent encounter* Code: * Start Date: SatApr 18 00:00:00 EDT 2022 * End Date: SatJun 17 00:00:00 EST 2022 * Problem Acute kidney failure, unspecified* Code: * Start Date: SatApr 18 00:00:00 EDT 2022 * End Date: SatJun 17 00:00:00 EST 2022 * Problem Unspecified intracapsular fracture of right femur, subsequent encounter for closed fracturewith routine healing* Code: * Start Date: SatMay 07 00:00:00 EST 2022 * End Date: SatSep 05 00:00:00 EST 2023 * Problem Fall on same level from slipping, tripping and stumbling with subsequent striking against other object, subsequent encounter* Code: * Start Date: SatMay 07 00:00:00 EST 2022 * End Date: SatMar 09 00:00:00 EDT 2023 * Problem Localized edema* Code: * Start Date: SatMay 07 00:00:00 EST 2022 * End Date: SatJun 17 00:00:00 EST 2022 * Problem Drug induced constipation* Code: * Start Date: SatMay 07 00:00:00 EST 2022 * End Date: SatJun 18 00:00:00 EST 2023 * Problem Adverse effect of other opioids, subsequent encounter* Code: * Start Date: SatMay 07 00:00:00 EST 2022 * End Date: SatJun 18 00:00:00 EST 2023 * Problem Other specified abnormalities of plasma proteins* Code: * Start Date: SatMay 07 00:00:00 EST 2022 * End Date: SatJun 17 00:00:00 EST 2022 * Problem Pain in right leg* Code: * Start Date: SatMay 21 00:00:00 EST 2022 * End Date: SatJun 17 00:00:00 EST 2022 * Problem Apraxia following cerebral infarction* Code: * Start Date: SatJun 17 00:00:00 EST 2022 * End Date: SatMar 09 00:00:00 EDT 2023 * Problem Unspecified fall, subsequent encounter* Code: * Start Date: SatJul 26 00:00:00 EST 2023 * End Date: SatSep 05 00:00:00 EST 2023 * Problem Displaced fracture of first metatarsal bone, right foot, subsequent encounter for fracture with routine healing* Code: * Start Date: SatSep 20 00:00:00 EDT 2023 * End Date: SatJan 19 00:00:00 EDT 2023 * Problem Unspecified fall, subsequent encounter* Code: * Start Date: SatSep 20 00:00:00 EDT 2023 * End Date: SatJan 19 00:00:00 EDT 2023
--- OUTSIDE RECORDS SUMMARY | 2024-10-09 07:23 | XMS_ITS | Encounter Summary ---
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 Not on file Not on file documented as of this encounter Plan of Treatment Not on file documented as of this encounter Visit Diagnoses Diagnosis Expressive aphasia- Primary Apraxia of speech Other symbolic dysfunction Hoarseness Dysphonia Glioblastoma multiforme (HCC) Malignant neoplasm of brain, unspecified site Speech and language deficits Speech and language deficit, unspecified, late effect of cerebrovascular disease documented in this encounter Care Teams Tool And Die Engineer Relationship Specialty Start Date End Date Lan Doss MD PCP - General Family Medicine 08/23/21 Lan Doss MD 08/23/21 Travon Stevens MD Medical Oncologist/Amusement Centre Manager Medical Oncology 11/11/18 Deshawn Penaloza MD Surgeon Neurosurgery 01/23/19 Jen Ramos, ZANE [address] [place] [address] [place] [address] Sheep Boner 09/06/22 09/16/22 documented as of this encounter
--- OUTSIDE RECORDS SUMMARY | 2024-10-09 07:23 | XMS_ITS | Encounter Summary ---
Author Organization [facility] Healthcare Address [address] [place] [address] Care Team Providers Care Hot Mill Supervisor Name Role Phone Ross Doss MD Primary Care Provider [phone] Ross Doss MD Unavailable [phone] Travon Stevens MD Unavailable Deshawn Penaloza MD Unavailable [phone] Jen Ramos LPN Unavailable Reason for Referral * Consultation (Routine) - Closed Specialty Diagnoses / Procedures Referred By Contac t Referred To Contact Physical Therapy Diagnoses Gait disturbance Ross Doss MD Phone: tel: fax: Ross Doss MD [facility] [address] Phone: tel: fax: Referral ID Status Reason Start Date Expiration Date V isits Requested Visits Authorized [id number] Closed Specialty Services Required 01/12/2022 02/11/2023 1 1 Question Answer PTRFR PT Evaluate and Treat Therapy options discussed with patient? Yes Location provided for therapy services is: Patient requested/Patient preferred Please select the performing region: [facility] [[id number]] Please select the performing department: [facility] ON OP PT [[id number]] To provider: ROSS DOSS [[id number]] # of visits: 1 Comments Patient requires AFO for R LE. 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 Not on file Not on file documented as of this encounter Plan of Treatment Scheduled Referrals Name Type Priority Associated Diagnoses Orde r Schedule Ambulatory referral order to Physical Therapy - Outpatient Referral Routine Gait disturbance Expected: 01/12/2022 (Approximate), Expires: 01/12/2023 documented as of this encounter Visit Diagnoses Diagnosis Gait disturbance- Primary Abnormality of gait documented in this encounter Care Teams Hot Mill Supervisor Relationship Specialty Start Date End Date Ross Doss MD PCP - General Family Medicine 08/23/21 Ross Doss MD 08/23/21 Travon Stevens MD Medical Oncologist/Boring Machine Operator Vertical Medical Oncology 11/11/18 Deshawn Penaloza MD Surgeon Neurosurgery 01/23/19 Jen Ramos, ZANE [address] [place] [address] [place] [address] Research And Insights Executive 09/06/22 09/16/22 documented as of this encounter
--- OUTSIDE RECORDS SUMMARY | 2024-10-09 07:23 | XMS_ITS | Encounter Summary ---
Author Organization [facility] Healthcare Address [address] [place] [address] Care Team Providers Care Funeral Attendant Name Role Phone Lan Doss MD Primary Care Provider [phone] Lan Doss MD Unavailable [phone] Travon Stevens MD Unavailable [phone] Deshawn Penaloza MD Unavailable Jen Ramos LPN Unavailable Encounter Details Date Type Department Care Team (Late st Contact Info) Description 01/26/2022 Telephone [facility] [address] [place], [place] [phone] Deshawn Penaloza MD [address] [facility] [address] [place] [address] Social History Tobacco Use Types Packs/Day Years [...] Frequency of Binge Drinking Not on file 04/0 09/2021 PHQ-2 Answer Date Recorded PHQ-2 Total Score (If total score is 3 or more points, staff should administer the PHQ-9) 0 01/18/2020 Sex and Gender Information Value Date Recorded Sex Assigned at Not on file 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 Gender Identity Not on file Sexual Orientation Straight 08/31/2021 4: 21 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 on file documented as of this encounter Plan of Treatment Not on file documented as of this encounter Visit Diagnoses Not on filedocumented in this encounter Care Teams Funeral Attendant Relationship Specialty Start Date End Date Lan Doss MD PCP - General Family Medicine 08/23/21 Lan Doss MD 08/23/21 Travon Stevens MD Medical Oncologist/Auto Parts Manager Medical Oncology 11/11/18 Deshawn Penaloza MD Surgeon Neurosurgery 01/23/19 Jen Ramos, DISK SHARPENER [address] [place] [address] Dr [address] [place] [id number] Internet Marketing Director 09/06/22 09/16/22 documented as of this encounter
--- OUTSIDE RECORDS SUMMARY | 2024-10-09 07:23 | XMS_ITS ---
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 Baseline weakness due to affects of GBM, continue supportive care, notify provider for change in condition. Localized swelling on right hand 07/28/2022 Assessment & Plan (07/28/2022 8:16 PM RN ENDOCRINOLOGY): Increase in edema to R hand, presume positional and is edematous at baseline. compression wrap applied by me on exam, assisted to reposition RUE sling, continue to elevate while resting, PT/OT as tolerated, no concern for cellulitis or clot, compartment is soft Functional diarrhea 06/27/2022 Assessment & Plan (06/27/2022 10:18 AM RN ENDOCRINOLOGY): DC b.i.d. rolando, notify provider for acute abdominal pain, bloody stools or fever Leg edema, right 06/11/2022 Assessment & Plan (06/11/2022 5:06 AM RN ENDOCRINOLOGY): No DVT. Start patient on Bactrim. Continue Lasix 40 mg for now continue 1 tab, as patient creatinine 1.6. Monitor symptoms, labs Primary insomnia 05/29/2022 Assessment & Plan (05/29/2022 11:01 AM RN ENDOCRINOLOGY): Try melatonin 10 mg nightly. Polyneuropathy associated with underlying diseas e 05/02/2022 Assessment & Plan (05/22/2022 9:21 AM RN ENDOCRINOLOGY): Continue Cymbalta 30 mg, Neurontin 300 mg b.i.d.. Assessment & Plan (05/02/2022 6:22 AM CDT): Continue Cymbalta 30 mg, Neurontin 300 mg b.i.d. Lumbar degenerative disc disease 02/23/2022 Speech and language deficits 11/01/2021 Assessment & Plan (08/24/2022 12:46 PM RN ENDOCRINOLOGY): Improving with ST Getting ready to transition to assisted living Apraxia of speech 11/01/2021 Assessment & Plan (05/22/2022 9:20 AM RN ENDOCRINOLOGY): Patient need to get FEES. Has been ordered from [facility] [place] [facility]. Need to confirm with family Assessment & Plan (05/18/2022 10:26 AM RN ENDOCRINOLOGY): FEES ordered at [facility] but unable to obtain. Recommend Outpt ST eval & treat with FEEs. Have placed ordered for d/c. Family will need to transport. Assessment & Plan (05/14/2022 11:40 AM RN ENDOCRINOLOGY): Waiting on FEEs to be scheduled. Assessment & Plan (05/11/2022 11:52 AM RN ENDOCRINOLOGY): Concerns with vocal cord atrophy to R side. Have ordered FEES to assess. 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 Decadron, seizure prophylaxis, denies headache or change in symptoms, does well with therapy and participates in care, continue supportive measures, follow-up with Neuro- Oncology Assessment & Plan (07/28/2022 8:17 PM RN ENDOCRINOLOGY): remains with R sided weakness and expressive aphasia, able to self propel WC and participate in care, cont PT/OT, decadron daily. Sz prophylaxis, nsgy f/u Assessment & Plan (07/24/2022 11:21 AM RN ENDOCRINOLOGY): Pt of Dr. Gomez at [facility] - s/p 06/30/2018, gross total resection of left parietal tumor. Surgeon Dr. Penaloza. Pathology: - GBM, MGMT promoter methylated, EGFR amplified, monosomic loss of PTEN. Continue seizure prophylaxis, decadron, BP management, repeat BMP to monitor sodium, pain control denies CARPENTER PT OT ADOBE DEVELOPER following Assessment & Plan (06/11/2022 5:08 AM RN ENDOCRINOLOGY): Continue dexamethasone 8 mg a.m. and 4 mg p.m., Trileptal, Keppra. Patient had appointment with Dr. Hernandez on 06/07, now started on Bactrim every other day. Brain MRI scheduled for 06/17/2022. Next follow-up with Dr. Hernandez on 06/21/2022 Assessment & Plan (05/22/2022 9:12 AM RN ENDOCRINOLOGY): Pt is s/p 06/30/2018, gross total resection of left parietal tumor, per surgeon Dr. Penaloza. Completed radiation therapy, on Avastin + Optune device since October 2018, w/C5 on 04/05/22. Follow up with Dr. Stevens in [facility]. Now rec dexamethasone 8 mg in AM and 4 mg in PM. To continue antiseizure medication, aggressively treat hypertension Assessment & Plan (05/18/2022 10:26 AM RN ENDOCRINOLOGY): Continue antiseizure meds & Dexamethasone. Outpt Onc f/u. Assessment & Plan (05/02/2022 6:23 AM CDT): Pt is s/p 06/30/2018, gross total resection of left parietal tumor, per surgeon Dr. Penaloza. Completed radiation therapy, on Avastin + Optune device since October 2018, w/C5 on 04/05/22. Follow up with Dr. Stevens in [facility]. Now rec dexamethasone 8 mg in AM and 4 mg in PM. To continue antiseizure medication, aggressively treat hypertension Stage 3a chronic kidney disease 08/23/2021 Assessment & Plan (06/11/2022 5:09 AM RN ENDOCRINOLOGY): Creatinine improved from 1.7 to 1.6. Will repeat renal function on 06/19, as patient going to start Bactrim Assessment & Plan (05/29/2022 11:05 AM RN ENDOCRINOLOGY): Creatinine 1.7. Repeat labs on 06/04 Assessment & Plan (05/22/2022 9:18 AM RN ENDOCRINOLOGY): Creatinine stable at 1.4. Avoid nephrotoxic drugs, monitor renal function. Assessment & Plan (05/14/2022 11:40 AM RN ENDOCRINOLOGY): Cr stable. Assessment & Plan (05/07/2022 12:16 PM RN ENDOCRINOLOGY): Improved. At baseline. Continue to montior. Assessment & Plan (05/04/2022 11:20 AM CDT): At baseline. See above. Assessment & Plan (05/02/2022 6:22 AM CDT): Creatinine 1.6-1.8. Avoid nephrotoxic drugs. Monitor renal function Essential (primary) hypertension 08/23/2021 Assessment & Plan (08/06/2022 10:33 AM RN ENDOCRINOLOGY): BP logs reviewed and stable, continue daily clonidine and Norvasc for BP goal less than 150 over less than 90 Assessment & Plan (05/22/2022 9:13 AM RN ENDOCRINOLOGY): BP fluctuates. Cont clonidine 0.05mg bid, HCTZ 25 mg and amlodipine 10 mg. We will add hydralazine 25 mg t.i.d. with parameters if remains elevated. Monitor blood pressure, adjust meds accordingly Assessment & Plan (05/18/2022 10:27 AM RN ENDOCRINOLOGY): BP stable with fluctuation. Continue to monitor. May need to increase Clonidine if remains elevated outpt. Assessment & Plan (05/14/2022 11:37 AM RN ENDOCRINOLOGY): BP continues to remain elevated. Hydralazine increased Saturday. Monitor. Assessment & Plan (05/11/2022 12:01 PM RN ENDOCRINOLOGY): BP remains high. Increase Hydralazine. Assessment & Plan (05/07/2022 12:12 PM RN ENDOCRINOLOGY): BP elevated still, increase Hydralazine. Monitor. Assessment & Plan (05/04/2022 11:16 AM CDT): Hydralazine just added. Continue to monitor, increase next week if remains elevated. Assessment & Plan (05/03/2022 4:26 AM CDT): BP fluctuates. Cont clonidine 0.05mg bid, HCTZ 25 mg and amlodipine 10 mg. We will add hydralazine 25 mg t.i.d. with parameters. Monitor blood pressure, adjust meds accordingly Glioblastoma multiforme (CMS/HCC) 11/11/2018 Assessment & Plan (07/09/2022 12:17 PM RN ENDOCRINOLOGY): Follows with Neurosurgery, Medical Oncology, continue PT/OT, remains with expressive aphasia and left-sided weakness able to participate in care and assist with ADLs, feed self Continue seizure prophylaxis, daily Decadron Left parietal glioblastoma multiforme, MGMT promoter methylated, EGFR amplified, monosomy of PTEN Dx 05/2018 s/p resection, proton therapy, temodar. Follows with Dr Stevens Assessment & Plan (06/27/2022 10:17 AM RN ENDOCRINOLOGY): Continue b.i.d. Decadron with prophylactic Bactrim and seizure prophylaxis, PT/OT, assist with mobility and transfers, swallow appropriate at this time Assessment & Plan (03/21/2021 7:19 PM CDT): L parietal GBM. Dx 05/2018 s/p resection, proton therapy, temodar. Currently on Optune, follows with Rodney. -hold Optune -Med Onc c/s in AM -bMRI pending Assessment & Plan (03/19/2021 2:46 PM CDT): Left parietal glioblastoma multiforme, MGMT promoter methylated, EGFR amplified, monosomy of PTEN Dx 05/2018 s/p resection, proton therapy, temodar. Follows with Dr Stevens -currently on Optune, HOLD while inthe medical [facility] -bMRI 03/13 was largely stable, repeat bMRI planned for 05/2021 -med onc consult Assessment & Plan (11/11/2018 8:57 AM CDT): Seeing NUS, under current treatment, weight loss, fatigue, some nausea Seizure disorder (CMS/HCC) 11/11/2018 Assessment & Plan (05/29/2022 11:03 AM RN ENDOCRINOLOGY): Keppra level elevated to 50, continue Keppra 2000 mg b.i.d., oxcarbazepine 300 mg b.i.d. request Neurology for any dose adjustment in Keppra Assessment & Plan (05/02/2022 6:14 AM CDT): Started in 2018 with R sided weakness and word finding difficulty. EEG now also showed left temporal region cortical irritability. To cont keppra 2000 mg bid, Oxcarbazepine 300 mg bid. seizure precautions. Follows up with neurosurgeon Dr. Penaloza Assessment & Plan (03/21/2021 8:26 PM CDT): Started 05/2019 with R-sided weakness, expressive aphasia. Has been on Keppra 500mg BID for about a year however recently (this week) increased to 1g BID in setting of increased CARPENTER, word-finding difficulty, R-sided weakness and c/f subclinical seizure. He presents again with CARPENTER and ?difficulty with complex commands. hCT with no acute changes. -increase Keppra to 2g BID however only recently increased to 1g BID--discuss with Neuro in AM regarding final recs -rEEG -bMRI -neurology c/s to follow -PT/OT -seizure precautions -neuro checks q4h Assessment & Plan (03/19/2021 2:51 PM CDT): Starting in patient has had episodes of increased R-sided weakness, numbness, and expressive aphasia. 05/2019 placed on Keppra 500mg BID. Recurrent episode 05/2020, 01/2021, and now 03/19/21. Per patient this was the worst episode with the longest recovery. He had an associated CARPENTER and elevated BP to 207/126. 03/19 Exam: A&Ox4, word-finding difficulty, mild R-sided weakness, distal R-sided numbness, R-pronator drift 03/19 HCT stable L-parietal changes and likely prominent N-iupya-irsoj subarachnoid space over SDH Neurology consulted:- Suspect subclinical seizure, with post ictal RSW and aphasia, which is now improving NSGY consulted: also suspect seizure; repeat H-CT 03/20 am -increase keppra 500 to 1000mg BID -seizure precautions, neurochecks Q4hr If does not cont to improve will consider bMRI, EEG, +/- steroids Assessment & Plan (11/11/2018 9:04 AM CDT): On meds No changes cpm Labs 3 months Glioma of brain 07/22/2018 Glioblastoma (CMS/HCC) 07/09/2018 Assessment & Plan (08/24/2022 12:46 PM RN ENDOCRINOLOGY): Per oncology GERD (gastroesophageal reflux disease) 8 Assessment & Plan (03/21/2021 7:10 PM CDT): Cont famotidine Assessment & Plan (03/19/2021 2:43 PM CDT): -cont home famotidine 20mg QAM Assessment & Plan (11/11/2018 8:56 AM CDT): Diet exercise, PPI Hyperlipidemia 10/17/2015 Assessment & Plan (11/11/2018 8:57 AM CDT): CPM, some weight loss, follow labs Type 2 diabetes mellitus wit h chronic kidney disease, with long-term current use of insulin 10/17/2015 Assessment & Plan (08/24/2022 12:46 PM RN ENDOCRINOLOGY): D/c Sliding scale insulin Continue metformin and 10units basal insulin with close glucose monitoring May adjust basal or add back set mealtime insulin if needed Assessment & Plan (08/06/2022 10:31 AM RN ENDOCRINOLOGY): Glucose logs reviewed, improved with addition of a.m. Lantus, continue 20 units HS and 5 units in a.m. with mealtime SSI, metformin, weekly Trulicity. Accu-Cheks a.c. and HS, continues on long-term p.o. steroids Assessment & Plan (07/28/2022 8:18 PM RN ENDOCRINOLOGY): Hyperglycemia with steroid dosing, cont BID lantus with mealtime ssi, accuechecks ac and hs Assessment & Plan (07/24/2022 11:31 AM RN ENDOCRINOLOGY): Remains with intermittent hyperglycemia, Lantus increased to 20 units HS and 5 units in a.m. continue lispro with meals, weekly Trulicity Assessment & Plan (07/09/2022 12:18 PM RN ENDOCRINOLOGY): Glucose logs reviewed and noted persistent hyperglycemia, continue Trulicity, will increase HS Lantus again, continue mealtime SSI with Accu-Cheks a.c. and HS Assessment & Plan (06/27/2022 10:19 AM RN ENDOCRINOLOGY): Increase HS Lantus 18 units, 8 units lispro with meals, Accu-Cheks AC and HS Assessment & Plan (06/06/2022 2:23 PM RN ENDOCRINOLOGY): BG in 304 0s. Will increase Lantus from 10 units to 14 units bedtime, lispro 6 units t.i.d. with meals, will resume home med Trulicity 1 5 mg every saturday of the week. Monitor Accu-Cheks Assessment & Plan (05/22/2022 9:17 AM RN ENDOCRINOLOGY): A1c 7 on 08/24/2021. Continue Lantus 10 units nighttime, lispro 6 units t.i.d. with meal. Monitor Accu-Cheks. Assessment & Plan (05/18/2022 10:24 AM RN ENDOCRINOLOGY): A1c 7 08/24/21. BS 106-250. Continues on Lantus 10u + Lispro 6u Assessment & Plan (05/14/2022 11:39 AM RN ENDOCRINOLOGY): BS 98-283. Good control with current regimen. Continue to monitor. Assessment & Plan (05/11/2022 11:55 AM RN ENDOCRINOLOGY): BS 100-319. Currently on Basaglar 32u + 12u with meals, + SSI. Will cut Basaglar in 1/2 as has been being held or not receiving SSI d/t low. Assessment & Plan (05/02/2022 6:20 AM CDT): A1c 7 on 08/24/2021. BG 140-181. Continue Lantus 32 units nightly, lispro 12 units t.i.d. with meals, SSI. Trulicity discontinued. Continue Accu-Cheks Assessment & Plan (03/21/2021 7:09 PM CDT): holld metformin and trulicity. Assessment & Plan (03/19/2021 2:43 PM CDT): A1c 5.7 (12/2020) HOLD home metformin 1000mg BID, Trulcity 0.75mg QW -accucheck, LD-SSI Assessment & Plan (11/11/2018 9:07 AM CDT): DC trulicity conr Metformion for now Labs 3 mo A1C 6.2 Has lost weigh t with chemo treatment Normocytic normochromic anemia Assessment & Plan (06/06/2022 2:25 PM RN ENDOCRINOLOGY): Hemoglobin has been significantly improved to 11.4. Continue to monitor Assessment & Plan (05/14/2022 11:40 AM RN ENDOCRINOLOGY): H&H stable. Expressive aphasia Assessment & Plan (07/24/2022 11:32 AM RN ENDOCRINOLOGY): Intermittent, improving, follows with ADOBE DEVELOPER, swallow is appropriate, continue supportive care Assessment & Plan (07/17/2022 9:16 AM RN ENDOCRINOLOGY): Making slow progress with his speech. Always tries to do more conversation and improve himself. Continue ST. Assessment & Plan (05/18/2022 10:27 AM RN ENDOCRINOLOGY): Much improved. SEE ABOVE. Assessment & Plan (05/07/2022 12:16 PM RN ENDOCRINOLOGY): Increased phlegm improved with flonase. Pt to continue work with ADOBE DEVELOPER. Assessment & Plan (05/04/2022 11:21 AM CDT): Feels has increase phelgm causing voice change also. Denies coughing or ST. Will add on flonase to help with any inflammation. ADOBE DEVELOPER working with patient. Morbid (severe) obesity due to excess calories Mixed hyperlipidemia Generalized weakness Assessment & Plan (05/14/2022 11:40 AM RN ENDOCRINOLOGY): Continue PT/OT. Assessment & Plan (05/11/2022 11:52 AM RN ENDOCRINOLOGY): Continue PT/OT. H/O craniotomy Current Treatment and Therapy Plans HYDRATION THERAPY PLAN* Plan Start Date:02/15/2022 Plan Provider:Malick Ingram MD Linked Problems Glioblastoma multiforme (HCC ) Treatment Medications No medications scheduled. Temozolomide 11/25 Schedule - Post Radiation - 28 Day Cycles - Brain* Plan Start Date:05/20/2024 Plan Provider:Travon Stevens MD Linked Problems Glioblastoma (HCC) Treatment Medications Current Day (Day 1 , Cycle 5 - Planned for 10/22/2024) Next Day (Day 1, Cycle 6 - Planned for 11/19/2024) temozolomide (TEMODAR) temozolomide (TEM ODAR) 250 mg capsule temozolomide (TEMODAR) 250 mg capsule Past Treatment and Therapy Plans Oncology Chemotherapy Treatment Plan Name Start Date Discontinue Date Treatment Medications Discontinue Reason Plan Provider Cycles Bevacizumab 21 Day Cycles - Brain 01/04/2022 10/30/2023 bevacizumab-aw wb (MVASI)bevaciz umab-awwb (MVASI) IVPB Provider Discretion Travon Stevens MD 5 of 8 cycles started Temozolomide with Concurrent Radiation 6 Week Cycle - Brain 08/07/2018 03/19/2019 temozolomide (TEMODAR) Therapy Complete Travon Stevens MD 1 of 1 cycle completed Oncology Treatment (2) Plan Name Start Date Discontinue Date Treatment Medications Discontinue Reason Plan Provider Cycles Temozolomide 11/25 Schedule - Post Radiation - 28 Day Cycles - Brain 10/30/2018 06/18/2019 temozolomide (TEMODAR) Therapy Complete Travon Stevens MD 6 of 6 cycles completed Lifetime Dose Tracking * Chemical Lifetime Dose Automatic Entry Manual Entr y DLP 19,987.5 mGycm 19,987.5 mGycm 0 mGycm Resolved Problems Problem Noted Date Diagnosed Date Resolved Date Hyperkalemia 05/03/2022 05/14/2022 Assessment & Plan (05/07/2022 12:15 PM RN ENDOCRINOLOGY): Improved. Continue to montior. Assessment & Plan (05/04/2022 11:19 AM CDT): 5.0. Unsure of cause? Trending down. Recheck labs Saturday. Stable on exam. Assessment & Plan (05/03/2022 4:23 AM CDT): Potassium 5.2. Will repeat BMP 05/03 Hypertensive urgency 04/20/2022 022 Right foot pain 12/21/2021 05/04/2022 Seizure disorder 08/23/2021 08/24/2022 Assessment & Plan (07/17/2022 9:21 AM RN ENDOCRINOLOGY): Remains stable, no seizure activity noticed. Continue Keppra 2000 mg b.i.d., oxcarbazepine 300 mg b.i.d.. Follow up neurosurgeon outpatient Assessment & Plan (05/22/2022 9:12 AM RN ENDOCRINOLOGY): Started in 2019 with R sided weakness and word finding difficulty. EEG now also showed left temporal region cortical irritability. To cont keppra 2000 mg bid, Oxcarbazepine 300 mg bid. seizure precautions. Follows up with neurosurgeon Dr. Penaloza Type 2 diabetes mellitus, [facility] long-term current use of insulin 08/23/2021 05/18/2022 Acute renal failure (ARF) 07/11/2021 COVID-19 07/11/2021 05/04/2022 Shortness of breath 07/06/2021 12/22/19 Acute cough 07/06/2021 12/21/2021 Suspected COVID-19 virus infection 07/06/2021 12/21/2021 Disorientation 03/19/2021 12/21/2021 Headache 03/19/2021 12/21/2021 Assessment & Plan (03/21/2021 8:25 PM CDT): H/o migraines in setting of GBM. Here with more severe CARPENTER compared to baseline and more frequent. Neuro exam at baseline. -bMRI pending -APAP 1g PRN -he reports relief with CARPENTER cocktail so will try again if has another severe CARPENTER Assessment & Plan (03/19/2021 2:46 PM CDT): Hx of migraines, awoke 03/19 with unique CARPENTER to bilateral temples and forehead, iimproving -APAP 1g PRN Acute bilateral low back genesis n without sciatica 06/03/2019 07/20/2019 High risk medication use 07/02/201808/2018 Assessment & Plan (07/03/2018 12:03 PM RN ENDOCRINOLOGY): Requires intensive QID monitoring to avoid hypo and hyperlgycemia Assessment & Plan (07/02/2018 5:02 PM RN ENDOCRINOLOGY): Requires intensive QID monitoring to avoid hypo and hyperlgycemia Uncontrolled type 2 diabetes with neuropathy 9 10/30/2018 Assessment & Plan (07/04/2018 12:53 PM RN ENDOCRINOLOGY): Overall control adequate per patient report, but [...] Humalog 14 U TID with meals HDSSI Assessment & Plan (07/02/2018 5:07 PM RN ENDOCRINOLOGY): Overall control adequate per patient report, but exacerbated by steroid induced hyperglycemia. He has required TDD 20 units from correction over last 24 hours with suboptimal control (0.15 U/kg). Will perform weight based dosing 0.4 U/kg as follows: -Home: Metformin 2 g ER A1c 6.5 -Plan: -start lantus 25 units daily -humalog 8 units TID, MDS -needs DM education with prior to discharge -Discharge: FU with his PCP who pt wants to manage his steroids Brain mass 06/27/2018 10/30/2018 Assessment & Plan (07/03/2018 12:02 PM RN ENDOCRINOLOGY): Requirement for high dose steroids complicates glycemic [...] po qd x2 days (07/10-05/11), then STOP Assessment & Plan (07/02/2018 5:01 PM RN ENDOCRINOLOGY): Requirement for high dose steroids complicates glycemic [...] po qd x2 days (07/10-05/11), then STOP Hypertension 10/17/2015 05/04/2022 Assessment & Plan (03/21/2021 7:10 PM CDT): Cont lisinoprill Assessment & Plan (03/19/2021 2:43 PM CDT): -continue home lisinopril 40mg QAM Assessment & Plan (11/11/2018 8:54 AM CDT): DASH diet, CPM, BP controlled Dehydration 12/21/2021 Acute constipation Assessment & Plan (05/07/2022 12:15 PM RN ENDOCRINOLOGY): Stable on current regimen. Assessment & Plan (05/04/2022 11:17 AM CDT): Will add on colace BID & miralax PRN, continue senna BID. Monitor closely. Other PRNs available.
--- OUTSIDE RECORDS SUMMARY | 2024-10-09 07:23 | XMS_ITS | Clinical Summary ---
[facility] Address [address] [place] [address] Care Team Providers Care Dna Sequencing Associate Name Role Phone Lan Doss MD Primary Care Provider [phone] Lan Doss MD Unavailable [phone] Travon Stevens MD Unavailable [phone] Deshawn Penaloza MD Unavailable [phone] Allergies No known active allergies Medications rizatriptan (MAXALT) 10 mg tablet Take 1 tablet (10 mg total) by mouth once as needed for migraine May repeat in 2 hours if unresolved. Do not exceed 30 mg in 24 hours. 27 tablet 1 07/06/19 22 Active calcium carbonate (TUMS) 500 mg (200 mg elemental) chewable tabletIndicati ons:Heartburn Take 2 tablet/chew tab (1,000 mg total) by mouth as needed for indigestion or heartburn Active magnesium oxide (MAG-OX) 400 mg (241.3 mg elemental magnesium) tablet Take 1 tablet (400 mg total) by mouth daily 100 tablet 08/24/19 22 Active acetaminophen (TYLENOL) 325 mg tablet Take 2 tablets (650 mg total) by mouth every 6 (six) hours as needed for pain 30 tablet 10/05/[address] (CYMBALTA) 30 mg capsule Take 1 capsule (30 mg total) by mouth daily 30 capsule 5 08/26/20 22 Active levETIRAcetam (KEPPRA) 1,000 mg tablet Take 2 tablets (2,000 mg total) by mouth 2 (two) times a day 04/03/20 22 Active OXcarbazepine (TRILEPTAL) 300 mg tabletIndicati ons:Complex-Pa rtial Epilepsy Take 1 tablet (300 mg total) by mouth 2 (two) times a day 60 tablet 05/01/20 22 Active cloNIDine (CATAPRES) 0.1 mg tablet Take 0.5 tablets (0.05 mg total) by mouth 2 (two) times a day 30 tablet 05/01/20 22 Active senna (SENOKOT) 8.6 mg tablet Take 1 tablet by mouth 2 (two) times a day 14 tablet 05/01/20 22 Active amLODIPine (NORVASC) 10 mg tablet Take 1 tablet (10 mg total) by mouth daily 30 tablet 05/02/20 22 Active polyethylene glycol (MIRALAX) 17 gram packetIndicati ons:constipati on Take 1 packet (17 g total) by mouth daily as needed for constipation 10 packet 05/01/20 22 Active hydrALAZINE (APRESOLINE) 100 mg tabletIndicati ons:hypertensi on Take 1 tablet (100 mg total) by mouth 3 (three) times a day 90 tablet 05/18/20 22 Active furosemide (LASIX) 40 mg tablet Take 0.5 tablets (20 mg total) by mouth daily 90 tablet 09/21/19 23 Active dexAMETHasone (DECADRON) 6 mg tablet Take 1 tablet (6 mg total) by mouth every 12 (twelve) hours 6 mg twice daily for 1 week and after that continue to take 6 mg once daily until seen by oncologist 45 tablet 09/21/19 23 Active insulin glargine 100 unit/mL (3 mL) pen for injection Inject 35 Units under the skin nightly 15 mL 09/21/19 23 Active insulin lispro (HumaLOG, ADMELOG) 100 unit/mL vial for injectionIndic ations:Diabete s Mellitus Inject 12 Units under the skin 3 (three) times a day with meals 10 mL 09/21/19 23 Active famotidine (PEPCID) 20 mg tablet TAKE 1 TABLET(20 MG) BY MOUTH DAILY 30 tablet 11 12/13/19 23 Active bisacodyl EC (Dulcolax, bisacodyl,) 5 mg EC tablet 2 tablets (10 mg total) 10/05/19 23 Active potassium chloride ER 10 mEq CR tablet 09/01/19 24 Active Eliquis 2.5 mg tablet Take 1 tablet (2.5 mg total) by mouth 2 (two) times a day 03/08/20 24 Active lactulose 0.67 gram/mL solution 03/08/20 24 Active metFORMIN (GLUCOPHAGE) 500 mg tablet Take 1 tablet (500 mg total) by mouth 03/08/20 24 Active nystatin powder Apply topically 2 (two) times a day 03/08/20 24 Active ondansetron (ZOFRAN) 8 mg tabletIndicati ons:Glioblasto ma ([facility]) Take 1 tablet (8 mg total) by mouth every 8 (eight) hours as needed for nausea or vomiting Take 30 minutes prior to oral chemotherapy then every 8 hours as needed up to 3 doses in 24 hours if prochlorperazine does not stop nausea. 24 tablet 3 05/20/20 24 Active prochlorperazi ne (Compazine) 10 mg tabletIndicati ons:Glioblasto ma ([facility]) Take 1 tablet (10 mg total) by mouth every 6 (six) hours as needed for nausea or vomiting Use first for nausea 120 tablet 3 05/20/20 24 Active amLODIPine (NORVASC) 10 mg tablet Take 1 tablet (10 mg total) by mouth daily Active gabapentin (NEURONTIN) 300 mg capsuleIndicat ions:Glioblast ulysses ([facility]) Take 1 capsule (300 mg total) by mouth 3 (three) times a day 90 capsule 11 08/27/19 25 Active temozolomide (TEMODAR) 250 mg capsuleIndicat ions:Glioblast ulysses ([facility]) Take 2 capsules (500 mg) by mouth daily for 5 days. Take on days 1-5 every 28 days. 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 Baseline weakness due to affects of GBM, continue supportive care, notify provider for change in condition. Localized swelling on right hand 07/28/2022 Assessment & Plan (07/28/2022 8:16 PM FIELD APPLICATION ENGINEER): Increase in edema to R hand, presume positional and is edematous at baseline. compression wrap applied by me on exam, assisted to reposition RUE sling, continue to elevate while resting, PT/OT as tolerated, no concern for cellulitis or clot, compartment is soft Functional diarrhea 06/27/2022 Assessment & Plan (06/27/2022 10:18 AM FIELD APPLICATION ENGINEER): HARPER b.i.elsa marshall, notify provider for acute abdominal pain, bloody stools or fever Leg edema, right 06/11/2022 Assessment & Plan (06/11/2022 5:06 AM FIELD APPLICATION ENGINEER): No DVT. Start patient on Bactrim. Continue Lasix 40 mg for now continue 1 tab, as patient creatinine 1.6. Monitor symptoms, labs Primary insomnia 05/29/2022 Assessment & Plan (05/29/2022 11:01 AM FIELD APPLICATION ENGINEER): Try melatonin 10 mg nightly. Polyneuropathy associated with underlying diseas e 05/02/2022 Assessment & Plan (05/22/2022 9:21 AM FIELD APPLICATION ENGINEER): Continue Cymbalta 30 mg, Neurontin 300 mg b.i.d.. Assessment & Plan (05/02/2022 6:22 AM CDT): Continue Cymbalta 30 mg, Neurontin 300 mg b.i.d. Lumbar degenerative disc disease 02/23/2022 Speech and language deficits 11/01/2021 Assessment & Plan (08/24/2022 12:46 PM FIELD APPLICATION ENGINEER): Improving with ST Getting ready to transition to assisted living Apraxia of speech 11/01/2021 Assessment & Plan (05/22/2022 9:20 AM FIELD APPLICATION ENGINEER): Patient need to get FEES. [place] [facility] Need to confirm with family Assessment & Plan (05/18/2022 10:26 AM FIELD APPLICATION ENGINEER): [place] [facility] [place] unable to obtain. Recommend Outpt ST eval & treat with FEEs. Have placed ordered for d/c. Family will need to transport. Assessment & Plan (05/14/2022 11:40 AM FIELD APPLICATION ENGINEER): Waiting on FEEs to be scheduled. Assessment & Plan (05/11/2022 11:52 AM FIELD APPLICATION ENGINEER): Concerns with vocal cord atrophy to R side. Have ordered FEES to assess. 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 Decadron, seizure prophylaxis, denies headache or change in symptoms, does well with therapy and participates in care, continue supportive measures, follow-up with Neuro- Oncology Assessment & Plan (07/28/2022 8:17 PM FIELD APPLICATION ENGINEER): remains with R sided weakness and expressive aphasia, able to self propel WC and participate in care, cont PT/OT, decadron daily. Sz prophylaxis, nsgy f/u Assessment & Plan (07/24/2022 11:21 AM FIELD APPLICATION ENGINEER): Pt of Dr. Gomez at [facility] - s/p 06/30/2018, gross total resection of left parietal tumor. Surgeon Dr. Penaloza. Pathology: - GBM, MGMT promoter methylated, EGFR amplified, monosomic loss of PTEN. Continue seizure prophylaxis, decadron, BP management, repeat BMP to monitor sodium, pain control denies CARPENTER PT OT FITNESS ATTENDANT following Assessment & Plan (06/11/2022 5:08 AM FIELD APPLICATION ENGINEER): Continue dexamethasone 8 mg a.m. and 4 mg p.m., [place], [place]. Patient had appointment with Dr. Hernandez on 06/07, now started on Bactrim every other day. Brain MRI scheduled for 06/17/2022. Next follow-up with Dr. Hernandez on 06/21/2022 Assessment & Plan (05/22/2022 9:12 AM FIELD APPLICATION ENGINEER): Pt is s/p 06/30/2018, gross total resection of left parietal tumor, per surgeon Dr. Penaloza. Completed radiation therapy, on Avastin + Optune device since October 2018, w/C5 on 04/05/22. Follow up with Dr. Stevens in [facility]. Now rec dexamethasone 8 mg in AM and 4 mg in PM. To continue antiseizure medication, aggressively treat hypertension Assessment & Plan (05/18/2022 10:26 AM FIELD APPLICATION ENGINEER): Continue antiseizure meds & Dexamethasone. Outpt Onc f/u. Assessment & Plan (05/02/2022 6:23 AM CDT): Pt is s/p 06/30/2018, gross total resection of left parietal tumor, per surgeon Dr. Penaloza. Completed radiation therapy, on Avastin + Optune device since October 2018, w/C5 on 04/05/22. Follow up with Dr. Stevens in [facility]. Now rec dexamethasone 8 mg in AM and 4 mg in PM. To continue antiseizure medication, aggressively treat hypertension Stage 3a chronic kidney disease 08/23/2021 Assessment & Plan (06/11/2022 5:09 AM FIELD APPLICATION ENGINEER): Creatinine improved from 1.7 to 1.6. Will repeat renal function on 06/19, as patient going to start Bactrim Assessment & Plan (05/29/2022 11:05 AM FIELD APPLICATION ENGINEER): Creatinine 1.7. Repeat labs on 06/04 Assessment & Plan (05/22/2022 9:18 AM FIELD APPLICATION ENGINEER): Creatinine stable at 1.4. Avoid nephrotoxic drugs, monitor renal function. Assessment & Plan (05/14/2022 11:40 AM FIELD APPLICATION ENGINEER): Cr stable. Assessment & Plan (05/07/2022 12:16 PM FIELD APPLICATION ENGINEER): Improved. At baseline. Continue to montior. Assessment & Plan (05/04/2022 11:20 AM CDT): At baseline. See above. Assessment & Plan (05/02/2022 6:22 AM CDT): Creatinine 1.6-1.8. Avoid nephrotoxic drugs. Monitor renal function Essential (primary) hypertension 08/23/2021 Assessment & Plan (08/06/2022 10:33 AM FIELD APPLICATION ENGINEER): BP logs reviewed and stable, continue daily clonidine and Norvasc for BP goal less than 150 over less than 90 Assessment & Plan (05/22/2022 9:13 AM FIELD APPLICATION ENGINEER): BP fluctuates. Cont clonidine 0.05mg bid, HCTZ 25 mg and amlodipine 10 mg. We will add hydralazine 25 mg t.i.d. with parameters if remains elevated. Monitor blood pressure, adjust meds accordingly Assessment & Plan (05/18/2022 10:27 AM FIELD APPLICATION ENGINEER): BP stable with fluctuation. Continue to monitor. May need to increase Clonidine if remains elevated outpt. Assessment & Plan (05/14/2022 11:37 AM FIELD APPLICATION ENGINEER): BP continues to remain elevated. Hydralazine increased Saturday. Monitor. Assessment & Plan (05/11/2022 12:01 PM FIELD APPLICATION ENGINEER): BP remains high. Increase Hydralazine. Assessment & Plan (05/07/2022 12:12 PM FIELD APPLICATION ENGINEER): BP elevated still, increase Hydralazine. Monitor. Assessment [...] 11/11/2018 Assessment & Plan (07/09/2022 12:17 PM FIELD APPLICATION ENGINEER): Follows with Neurosurgery, Medical Oncology, continue PT/OT, remains with expressive aphasia and left-sided weakness able to participate in care and assist with ADLs, feed self Continue seizure prophylaxis, daily Decadron Left parietal glioblastoma multiforme, MGMT promoter methylated, EGFR amplified, monosomy of PTEN Dx 05/2018 s/p resection, proton therapy, temodar. Follows with Dr Stevens Assessment & Plan (06/27/2022 10:17 AM FIELD APPLICATION ENGINEER): Continue b.i.d. Decadron with prophylactic Bactrim and seizure prophylaxis, PT/OT, assist with mobility and transfers, swallow appropriate at this time Assessment & Plan (03/21/2021 7:19 PM CDT): L parietal GBM. Dx 05/2018 s/p resection, proton therapy, temodar. Currently on OptActions, follows with Rodney. -hold Optune -Med Onc c/s in AM -bMRI pending Assessment & Plan (03/19/2021 2:46 PM CDT): Left parietal glioblastoma multiforme, MGMT promoter methylated, EGFR amplified, monosomy of PTEN Dx 05/2018 s/p resection, proton therapy, temodar. Follows with Dr Stevens -[facility] Optune[facility] was largely stable, repeat bMRI planned for 05/2021 -med onc consult Assessment & Plan (11/11/2018 8:57 AM CDT): Seeing NUS, under current treatment, weight loss, fatigue, some nausea Seizure disorder (CMS/HCC) 11/11/2018 Assessment & Plan (05/29/2022 11:03 AM FIELD APPLICATION ENGINEER): Keppra level elevated to 50, continue Keppra [...] HCT stable L-parietal changes and likely prominent [id number] subarachnoid space over SDH Neurology consulted:- Suspect [...] 07/09/2018 Assessment & Plan (08/24/2022 12:46 PM FIELD APPLICATION ENGINEER): Per oncology GERD (gastroesophageal reflux disease) 8 [...] 10/17/2015 Assessment & Plan (08/24/2022 12:46 PM FIELD APPLICATION ENGINEER): D/c Sliding scale insulin Continue metformin and 10units basal insulin with close glucose monitoring May adjust basal or add back set mealtime insulin if needed Assessment & Plan (08/06/2022 10:31 AM FIELD APPLICATION ENGINEER): Glucose logs reviewed, improved with addition of a.m. Lantus, continue 20 units HS and 5 units in a.m. with mealtime SSI, metformin, weekly Trulicity. Accu-Cheks a.c. and HS, continues on long-term p.o. steroids Assessment & Plan (07/28/2022 8:18 PM FIELD APPLICATION ENGINEER): Hyperglycemia with steroid dosing, cont BID lantus with mealtime ssi, accuechecks ac and hs Assessment & Plan (07/24/2022 11:31 AM FIELD APPLICATION ENGINEER): Remains with intermittent hyperglycemia, Lantus increased to 20 units HS and 5 units in a.m. continue lispro with meals, weekly Trulicity Assessment & Plan (07/09/2022 12:18 PM FIELD APPLICATION ENGINEER): Glucose logs reviewed and noted persistent hyperglycemia, continue Trulicity, will increase HS Lantus again, continue mealtime SSI with Accu-Cheks a.c. and HS Assessment & Plan (06/27/2022 10:19 AM FIELD APPLICATION ENGINEER): Increase HS Lantus 18 units, 8 units lispro with meals, Accu-Cheks AC and HS Assessment & Plan (06/06/2022 2:23 PM FIELD APPLICATION ENGINEER): BG in 304 0s. Will increase Lantus from 10 units to 14 units bedtime, lispro 6 units t.i.d. with meals, will resume home med Trulicity 1 5 mg every saturday of the week. Monitor Accu-Cheks Assessment & Plan (05/22/2022 9:17 AM FIELD APPLICATION ENGINEER): A1c 7 on 08/24/2021. Continue Lantus 10 units nighttime, lispro 6 units t.i.d. with meal. Monitor Accu-Cheks. Assessment & Plan (05/18/2022 10:24 AM FIELD APPLICATION ENGINEER): A1c 7 08/24/21. BS 106-250. Continues on Lantus 10u + Lispro 6u Assessment & Plan (05/14/2022 11:39 AM FIELD APPLICATION ENGINEER): BS 98-283. Good control with current regimen. Continue to monitor. Assessment & Plan (05/11/2022 11:55 AM FIELD APPLICATION ENGINEER): BS 100-319. Currently on Basaglar 32u + [...] Assessment & Plan (03/21/2021 7:09 PM CDT): shawnd metformin and trulicity. Assessment & Plan (03/19/2021 2:43 PM CDT): A1c 5.7 (12/2020) HOLD home metformin 1000mg BID, Trulcity 0.75mg QW -KIRA ramirez-SSI Assessment & Plan (11/11/2018 9:07 AM CDT): DC trulicity conr Metformion for now Labs 3 mo A1C 6.2 Has lost weigh t with chemo treatment Normocytic normochromic anemia Assessment & Plan (06/06/2022 2:25 PM FIELD APPLICATION ENGINEER): Hemoglobin has been significantly improved to 11.4. Continue to monitor Assessment & Plan (05/14/2022 11:40 AM FIELD APPLICATION ENGINEER): H&H stable. Expressive aphasia Assessment & Plan (07/24/2022 11:32 AM FIELD APPLICATION ENGINEER): Intermittent, improving, follows with FITNESS ATTENDANT, swallow is appropriate, continue supportive care Assessment & Plan (07/17/2022 9:16 AM FIELD APPLICATION ENGINEER): Making slow progress with his speech. Always tries to do more conversation and improve himself. Continue ST. Assessment & Plan (05/18/2022 10:27 AM FIELD APPLICATION ENGINEER): Much improved. SEE ABOVE. Assessment & Plan (05/07/2022 12:16 PM FIELD APPLICATION ENGINEER): Increased phlegm improved with flonase. Pt to continue work with FITNESS ATTENDANT. Assessment & Plan (05/04/2022 11:21 AM CDT): Feels has increase phelgm causing voice change also. Denies coughing or ST. Will add on flonase to help with any inflammation. FITNESS ATTENDANT working with patient. Morbid (severe) obesity due to excess calories Mixed hyperlipidemia Generalized weakness Assessment & Plan (05/14/2022 11:40 AM FIELD APPLICATION ENGINEER): Continue PT/OT. Assessment & Plan (05/11/2022 11:52 AM FIELD APPLICATION ENGINEER): Continue PT/OT. H/O craniotomy Resolved Problems Problem Noted Date Diagnosed Date Resolved Date Hyperkalemia 05/03/2022 05/14/2022 Assessment & Plan (05/07/2022 12:15 PM FIELD APPLICATION ENGINEER): Improved. [facility] Assessment & Plan (05/04/2022 11:19 AM CDT): 5.0. Unsure of cause? Trending down. Recheck labs Saturday. Stable on exam. Assessment & Plan (05/03/2022 4:23 AM CDT): Potassium 5.2. Will repeat BMP 05/03 Hypertensive urgency 04/20/2022 022 Right foot pain 12/21/2021 05/04/2022 Seizure disorder 08/23/2021 08/24/2022 Assessment & Plan (07/17/2022 9:21 AM FIELD APPLICATION ENGINEER): Remains stable, no seizure activity noticed. Continue Keppra 2000 mg b.i.d., oxcarbazepine 300 mg b.i.d.. Follow up neurosurgeon outpatient Assessment & Plan (05/22/2022 9:12 AM FIELD APPLICATION ENGINEER): Started in 2019 with R sided weakness and word finding difficulty. EEG now also showed left temporal region cortical irritability. To cont keppra 2000 mg bid, Oxcarbazepine 300 mg bid. seizure precautions. Follows up with neurosurgeon Dr. Penaloza Type 2 diabetes mellitus, [facility] long-term current use of insulin 08/23/2021 05/18/2022 [...] 07/02/201808/2018 Assessment & Plan (07/03/2018 12:03 PM FIELD APPLICATION ENGINEER): Requires intensive QID monitoring to avoid hypo and hyperlgycemia Assessment & Plan (07/02/2018 5:02 PM FIELD APPLICATION ENGINEER): Requires intensive QID monitoring to avoid hypo and hyperlgycemia Uncontrolled type 2 diabetes with neuropathy 9 10/30/2018 Assessment & Plan (07/04/2018 12:53 PM FIELD APPLICATION ENGINEER): Overall control adequate per patient report, but [...] HDSSI Assessment & Plan (07/02/2018 5:07 PM FIELD APPLICATION ENGINEER): Overall control adequate per patient report, but [...] 10/30/2018 Assessment & Plan (07/03/2018 12:02 PM FIELD APPLICATION ENGINEER): Requirement for high dose steroids complicates glycemic [...] STOP Assessment & Plan (07/02/2018 5:01 PM FIELD APPLICATION ENGINEER): Requirement for high dose steroids complicates glycemic [...] CPM, BP controlled Dehydration 12/21/2021 Acute constipation 2 Assessment & Plan (05/07/2022 12:15 PM FIELD APPLICATION ENGINEER): Stable on current regimen. Assessment & Plan (05/04/2022 11:17 AM CDT): Will add on colace BID & miralax PRN, continue senna BID. Monitor closely. Other PRNs available. Encounters Date Type Department Care Team Description 09/24/2024 12:40 PM CDT Office Visit [facility] Oncology [facility] Floor 1, [address] [place] [id number] Travon Stevens MD Glioblastoma (HCC) (Primary Dx) 09/24/2024 11:45 AM CDT Lab [facility] [place] - Lab Collection [address] [facility] Floor 5 [place] [address] Glioblastoma (HCC) 09/24/2024 11:30 AM CDT Lab [facility] Oncology Lab [facility] Floor 5 [place] [address] Glioblastoma (HCC) 09/22/2024 Orders Only [facility] Oncology [facility] [address] [place] [address] Travon Stevens MD 08/27/2024 1:00 PM FIELD APPLICATION ENGINEER Office Visit [facility] Oncology [facility] Floor 1, [address] [place] [address] Travon Stevens MD Glioblastoma (HCC) (Primary Dx) 08/27/2024 12:15 PM FIELD APPLICATION ENGINEER Lab [facility] [place] - Lab Collection [address] [facility] Floor 5 [place] [address] Glioblastoma (HCC) 08/27/2024 12:00 PM FIELD APPLICATION ENGINEER Lab [facility] Oncology Lab [facility] Floor [address] [place] [address] Glioblastoma (HCC) 08/27/2024 Orders Only [facility] Oncology [address] [place] [address] Floor 1, [address] [place] [address] Emory Alcazar RN Glioblastoma (HCC) (Primary Dx); Localized edema 08/27/2024 Orders Only [facility] Neurosurgery [facility] Floor 1, [address] [place] [address] Travon Stevens MD 08/25/2024 1:16 PM FIELD APPLICATION ENGINEER - 08/25/2024 11:59 PM [facility] [address] [place] [id number] Travon Stevens MD Glioblastoma (HCC) Discharge Disposition: Discharge to home or self care 07/31/2024 Orders Only [facility] Oncology [address] [place] [address] [address] 1, [address] [place] [address] Travon Stevens MD 07/30/2024 2:20 PM FIELD APPLICATION ENGINEER Office Visit [facility] Oncology [address] [place] [address] Floor 1, [address] [place] [address] Travon Stevens MD Glioblastoma (HCC) (Primary Dx); Flaccid hemiplegia affecting right dominant side, unspecified etiology (HCC); Seizure disorder (HCC); Type 2 diabetes mellitus with stage 3b chronic kidney disease, with long-term current use of insulin (HCC); Morbid (severe) obesity due to excess calories (HCC) 07/30/2024 1:30 PM FIELD APPLICATION ENGINEER Lab [facility] - Lab Collection [address] [facility] Floor [address] [place] [address] Glioblastoma (HCC) 07/30/2024 1:15 PM FIELD APPLICATION ENGINEER Lab [facility] Oncology Lab [address] [place] [address] Glioblastoma (HCC) 07/17/2024 Orders Only [facility] Oncology [address] [facility] Floor 1, [address] [place] [address] Emroy Alcazar RN Glioblastoma (HCC) (Primary Dx) 07/17/[address] [facility] Oncology [address] [facility] Floor 1, [address] [place] [address] Emory Alcazar RN from Last 3 Months Immunizations Immunization Administration Dates Next Due Influenza, Quadrivalent, Hig h Dose, Preservative Free, Intrr 07/04/2018 Influenza, Quadrivalent, Spl it, Preservative Free, Intramuscular 07/05/2018 Influenza, Trivalent, IM (MDV) 04/01/2013 Influenza, Trivalent, Preser vative Free, Intramuscular 07/05/2018 Influenza, Unspecified 03/31/2022(Deferr ed: Patient Refused),04/19/2021(Deferred: Patient Refused) PPD TEST 05/22/2022 Tdap 09/04/2015 Varicella 04/01/2013 Surgical History Surgery Date Site/Laterality Comments RESECTION parietal lobe CRANIOTOMY 06/30/[address] Penaloza KNEE CARTILAGE SURGERY 07/01/1994 - 06/30/1995 Left CARTILAGE REMOVED Medical History Medical History Date Comments Cancer (HCC) glioblastoma Seizure (HCC) Diabetes mellitus (HCC) CKD (chronic kidney disease) HLD (hyperlipidemia) Renal insufficiency Hypertension Migraines Glioblastoma (HCC) 06/30/2018 Sleep apnea Has CPAP but hackett s not use. Stroke (HCC) Family History Medical History Relation Name Comments No Known Problems Brother Heart disease Father No Known Problems Maternal Grandfather Cancer Maternal Grandmother BRAIN T UMOR Hypertension Mother Heart disease Paternal Grandfather No Known Problems Paternal Grandmother Relation Name Status Comments Brother Alive Father (Age 72y) OR Maternal Grandfather Maternal Grandmother Mother Alive Paternal Grandfather Paternal Grandmother Social History Tobacco Use Types Packs/Day Years Used Date Smoking Tobacco: Never Passive Smoke Exposure: Past Smokeless Tobacco: Never Tobacco Cessation:Counseling Given: Not Answered Alcohol Use Standard Drinks/Week Comments Yes 0 [...] often do you attend chur ch or worship services? Never 09/18/2022 Do you belong to any clubs o r organizations such as islam groups, unions, fraternal or athletic groups, or [...] place to sleep or slept in a fci (including now)? No 09/18/2022 Personal Safety Answer Date Recorded Have you ever been in or are you currently in a harmful physical or emotional relationship or is someone making you feel afraid or unsafe? 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 Not on file Not on file Obstetrics History Last Filed Vital Signs Vital Sign Reading Time Taken Comments Blood Pressure 131/80 08/27/2024 12:46 PM FIELD APPLICATION ENGINEER Pulse 100 08/27/2024 12:46 PM FIELD APPLICATION ENGINEER Temperature 36.8 C (98.2 F) 08/27/2024 12:46 PM FIELD APPLICATION ENGINEER Respiratory Rate 17 08/27/2024 12:46 PM FIELD APPLICATION ENGINEER Oxygen Saturation 100% 08/27/2024 12:46 PM FIELD APPLICATION ENGINEER Inhaled Oxygen Concentration - - Weight 119.7 kg (264 lb) 08/27/2024 12:46 PM FIELD APPLICATION ENGINEER Height 180.3 cm (5' 10.98 ) 08/27/2024 12:46 PM FIELD APPLICATION ENGINEER Body Mass Index 36.84 08/27/2024 12:46 PM FIELD APPLICATION ENGINEER Plan of Treatment Health Maintenance Due Date Last Done Comments Albumin Creatinine Ratio, Urine 1960 Hepatitis C Screening 1960 Hepatitis B Screening 1976 Pneumococcal vaccine 65+ (1 of 2 - PCV) 1977 Zoster Vaccine (1 of 2) 05/27/2013 Colon Cancer Screening-Colonoscopy 08/23/2019 08/23/2014 Foot Exam 01/25/2022 01/25/2021 Dilated Eye Exam 02/22/2022 02/22/2021 Prostate Cancer Screening-PSA 07/23/2022 07/23/2020, 05/10/2017 Lipid Panel 08/24/2022 08/24/2021, 03/01, 01/16/2021, Additional history exists Depression Screening 02/08/2023 02/08/2022, 01/18/2020, 03/18/2019 Hemoglobin A1C 03/21/2023 09/18/2022, 08/02, 07/12/2021, Additional history exists Fall Risk Assessment 2023 09/20/2022, 02/09/20 22 Well Visit 65+ 09/22/2023 02/08/2022, 01/25/2021 DTaP/Tdap/Td Vaccine (2 - Td or Tdap) 09/03/2025 09/04/2015 eGFR 09/24/2025 09/24/2024, 08/02, 07/30/2024, Additional history exists Colon Cancer Screening-CT Colonography Discontinued 08/23/2014 Colon Cancer Screening-DNA Stool Discontinued 08/23/19 15 Colon Cancer Screening-FIT Discontinued 08/23/2014 Colon Cancer Screening-Sigmoidoscopy Discontinued 08/23/2014 Influenza Vaccine Completed 04/09/2024, , 07/05/2018, Additional history exists Medical Devices Implanted Type Area Technical Project Coordinator Device Identifier Shelf Expiration Date Model / Serial / Lot Core Stix Tiff [id number] Duragen Plus 7.5x7.5cm Patch Resorbable Suturable Cranial Dura Graft - [id number] Implanted:Qty: 1 on 06/30/2018 by Deshawn Penaloza MD at [facility] Aneurysm Coils Left: Brain General Assemblya InnerWirelessciFutubra Tiff 02/28/2021 [id number] / / [id number] Synthes [id number] Matrixneuro 17mm .4mm Craniomaxillofacial Cover [place] - [id number] Implanted:Qty: 4 on 06/30/2018 by Deshawn Penaloza MD at [facility] Plate Left: Cranial Synthes I 04.503. [id number] / / Synthes 400.834 1.6mm 2.9mm 4mm Self Drill Self Retain Low Profile Cruciform - [id number] Implanted:Qty: 23 on 06/30/2018 by Deshawn Penaloza MD at [facility] Screw Left: Cranial Synthes I [id number] / / Procedures Procedure Name Priority Date/Time Associated Diagnosis Comments EGFR Routine 09/24/2024 11:41 AM CDT Glioblastoma (HCC) MANUAL DIFFERENTIAL Routine 09/24/2024 1 1:41 AM CDT Glioblastoma (HCC) CBC WITH AUTO DIFFERENTIAL Routine 09/24/2024 11:41 AM CDT Glioblastoma (HCC) COMPREHENSIVE METABOLIC PANEL Routine 09/24/2024 11:41 AM CDT Glioblastoma (HCC) T-HELPER CELLS (CD4) COUNT Routine 09/24/2024 11:41 AM CDT Glioblastoma (HCC) EGFR Routine 08/27/2024 12:12 PM FIELD APPLICATION ENGINEER Glioblastoma (HCC) DIFFERENTIAL AUTO Routine 08/27/2024 12: 12 PM FIELD APPLICATION ENGINEER Glioblastoma (HCC) CBC WITH AUTO DIFFERENTIAL Routine 08/27/2024 12:12 PM FIELD APPLICATION ENGINEER Glioblastoma (HCC) COMPREHENSIVE METABOLIC PANEL Routine 08/27/2024 12:12 PM FIELD APPLICATION ENGINEER Glioblastoma (HCC) T-HELPER CELLS (CD4) COUNT Routine 08/27/2024 12:12 PM FIELD APPLICATION ENGINEER Glioblastoma (HCC) MRI BRAIN W WO CONTRAST Schedule Routine, Read Routine (OP Routine) 08/25/2024 3:03 PM FIELD APPLICATION ENGINEER Glioblastoma (HCC) EGFR Routine 07/30/2024 1:28 PM FIELD APPLICATION ENGINEER Glioblastoma (HCC) MANUAL DIFFERENTIAL Routine 07/30/2024 1 :28 PM FIELD APPLICATION ENGINEER Glioblastoma (HCC) DIFFERENTIAL AUTO Routine 07/30/2024 1:2 8 PM FIELD APPLICATION ENGINEER Glioblastoma (HCC) CBC WITH AUTO DIFFERENTIAL Routine 07/30/2024 1:28 PM FIELD APPLICATION ENGINEER Glioblastoma (HCC) COMPREHENSIVE METABOLIC PANEL Routine 07/30/2024 1:28 PM FIELD APPLICATION ENGINEER Glioblastoma (HCC) T-HELPER CELLS (CD4) COUNT Routine 07/30/2024 1:28 PM FIELD APPLICATION ENGINEER Glioblastoma (HCC) HEMOGLOBIN A1C Routine 09/18/2022 6:31 AM CDT LIPID PANEL Routine 08/24/2021 2:54 AM FIELD APPLICATION ENGINEER DIABETIC EYE EXAM Routine 02/22/2021 PSA SCREEN Routine 07/23/2020 11:01 AM FIELD APPLICATION ENGINEER Type 2 diabetes mellitus without complication, without long-term current use of insulin (HCC) Essential hypertension Gastroesophageal reflux disease without esophagitis Mixed hyperlipidemia Glioblastoma multiforme (HCC) Prostate cancer screening COLONOSCOPY Routine 08/23/2014 from Last 3 Months or Most Recently Relevant to Health Maintenance Results * (ABNORMAL) eGFR (09/24/2024 11:41 AM CDT) eGFR 54(L) >=60 mL/min/1. 73 m2 Comment: Interpretive Data Reference Interval Normal >/= 90 mL/min/1.73m2 Mildly decreased* 60 - 89 mL/min/1.73m2 Mildly to moderately decreased 45 - 59 mL/min/1.73m2 Moderately to severely decreased 30 - 44 mL/min/1.73m2 Severely decreased 15 - 29 mL/min/1.73m2 Kidney Failure < 15 mL/min/1.73m2 *Relative to young adult level Estimated glomerular filtration rate is determined by the 2020 CKD-EPI equation recommended by the National Kidney Foundation (A Unifying Approach to GFR Estimation: Recommendations of the NKF-ASK Task Force on Reassessing the Inclusion of Race in Diagnosing Kidney Disease, JASN 2020). The CKD-EPI equation should not be used for patients with unstable renal function and has not been validated in children and those over 70. Current interpretive data was last reviewed 2021. Blood 09/24/2024 11:4 1 AM CDT 09/24/2024 11:47 AM CDT Travon Stevens MD LAB BLOOD ORDERABLES Olga michele Result [facility] Department [place] [address] * (ABNORMAL) CBC with auto differential (09/24/2024 11:41 AM CDT) WBC 10.3(H) 3.8 - 9.9 K/cumm Comment:Testing performed by : [facility], [address] [place] [address] Hgb 10.5(L) 13.0 - 17.5 g/dL [facility] Comment:Testing performed by : [facility], [address] [place] [address] Hct 32.1(L) 38.9 - 50.3 % [facility] Comment:Testing performed by : [facility], [address] [place] [address] Plt 220 150 - 400 K/cumm [facility] Comment:Testing performed by : [facility], [address] [place] [address] MPV 6.8 6.8 - 10.4 fL [facility] Comment:Testing performed by : [facility], [address] [place] [address] RBC 3.60(L) 4.30 - 5.80 M/cumm [facility]ER[facility] Comment:Testing performed by : [facility], [address] [place] [address] MCV 89.3 81.3 - 96.4 fL [facility] Comment:Testing performed by : [facility], [address] [place] [address] MCH 29.3 27.1 - 33.3 pg SARAH [facility] Comment:Testing performed by : [facility], [address] [place] [address] MCHC 32.8 32.3 - 35.7 g/dL SARAH [facility] Comment:Testing performed by : [facility], [address] [place] [address] RDW CV 19.6(H) 11.1 - 14.9 % SARAH [facility] Comment:Testing performed by : [facility], [address] [place] [address] NRBC abs 0.00 0.00 - 0.01 K/cumm SARAH PERALTA Comment:Testing performed by : [facility], [address] [place] [address] Blood 09/24/2024 11:4 1 AM CDT 09/24/2024 11:42 AM CDT Travon Stevens MD LAB BLOOD ORDERABLES Edit ed Result - Final [facility]AH [facility] Department of Laboratories [place], [place] [id number] * (ABNORMAL) Manual Differential (09/24/2024 11:41 AM CDT) Cells Counted 200 Comment:Testing performed by : [facility], [address] [place] [address] Neutrophil abs 8.7(H) 1.5 - 6.5 K/cumm SARAH PERALTA Comment:Testing performed by : [facility], [address] [place] [address] Lymphocyte abs 0.8 0.8 - 3.3 K/cumm SARAH PERALTA Comment:Testing performed by : [facility], [address] [place] [address] Monocyte abs 0.8 0.2 - 0.8 K/cumm SARAH PERALTA Comment:Testing performed by : [facility], [address] [place] [phone] Eosinophil abs 0.1 0.0 - 0.5 K/cumm [facility] Comment:Testing performed by : [facility], [address] [place] [phone] Basophil abs 0.0 0.0 - 0.1 K/cumm [facility] Comment:Testing performed by : [facility], [address] [place] [phone] Neutrophil pct 84.0 % [facility] Comment: Interpretive Data Percent cell count reference ranges are not reported, since discordance with absolute values may lead to misinterpretation of CBC data. Current Interpretive Data was last revised on 2017. Testing performed by: [facility], [address] [place] [phone] Lymphocyte pct 8.0 % [facility] Comment: Interpretive Data Percent cell count reference ranges are not reported, since discordance with absolute values may lead to misinterpretation of CBC data. Current Interpretive Data was last revised on 2017. Testing performed by: [facility], [address] [place] [phone] Monocyte pct 8.0 % [facility] Comment: Interpretive Data Percent cell count reference ranges are not reported, since discordance with absolute values may lead to misinterpretation of CBC data. Current Interpretive Data was last revised on 2017. Testing performed by: [facility], [address] [place] [phone] Eosinophil pct 1.0 % [facility] Comment: Interpretive Data Percent cell count reference ranges are not reported, since discordance with absolute values may lead to misinterpretation of CBC data. Current Interpretive Data was last revised on 2017. Testing performed by: [facility], [address] [place] [phone] Basophil pct 0.0 % [facility] Comment: Interpretive Data Percent cell count reference ranges are not reported, since discordance with absolute values may lead to misinterpretation of CBC data. Current Interpretive Data was last revised on 2017. Testing performed by: [facility], [address] [place] [phone] Anisocytosis 1+(A) [facility] Comment:Testing performed by : [facility], [address] [place] [phone] Platelet estimate Adequate [facility] Comment:Testing performed by : [facility], [address] [place] [phone] Blood 09/24/2024 11:4 1 AM CDT 09/24/2024 11:42 AM CDT Travon Stevens MD LAB BLOOD ORDERABLES Olga l Result Performing Organization Address [facility] Co de Phone Number [facility] Department [place] [address] * (ABNORMAL) T-helper cells (CD4) count (09/24/2024 11:41 AM CDT) [facility] CD4 pct 67(H) 31 - 64 % Comment:Ran twice. CD4 Absolute 361(L) 365 - 1,294 cells/mcL [facility] Comment:Ran twice. Blood 09/24/2024 11:4 1 AM CDT 09/24/2024 12:32 PM CDT Travon Stevens MD LAB BLOOD ORDERABLES Olga l Result Performing Organization Address [facility] Co de Phone Number [facility] Department [place] [address] * (ABNORMAL) Comprehensive metabolic panel (09/24/2024 11:41 AM CDT) [facility] Sodium 142 135 - 145 mmol/L Potassium, pl 4.1 3.3 - 4.9 mmol/L [facility] Chloride 104 97 - 110 mmol/L [facility] CO2 29 22 - 32 mmol/L [facility] Anion gap 9 2 - 15 mmol/L [facility] BUN 28(H) 6 - 25 mg/dL [facility] Creatinine 1.42(H) 0.80 - 1.30 mg/dL [facility] Glucose 189 70 - 199 mg/dL [facility] Comment: Interpretive Data Fasting glucose >/= 126 mg/dl is diagnostic for diabetes. Fasting is defined as no caloric intake for at least 8 hours. Fasting glucose between 100 mg/dl to 125 mg/dl is diagnostic of prediabetes. In a patient with classic symptoms of hyperglycemia or hyperglycemic crisis, a random glucose >/= 200 mg/dl is diagnostic for diabetes. In the absence of unequivocal hyperglycemia, results should be confirmed by repeat testing. The classification and Diagnosis of Diabetes Diabetes Care 2021; 46: S19-S40. Current interpretive data was last revised 2022. Calcium 9.4 8.5 - 10.3 mg/dL [facility] Bilirubin, total <0.2 0.1 - 1.2 mg/dL [facility] Protein, pl 6.9 6.5 - 8.5 g/dL [facility] Albumin 3.9 3.5 - 5.0 g/dL [facility] Alk phos 62 40 - 130 Units/L [facility] ALT 20 7 - 55 Units/L [facility] AST 15 10 - 50 Units/L [facility] Blood 09/24/2024 11:4 1 AM CDT 09/24/2024 11:47 AM CDT Travon Stevens MD LAB BLOOD ORDERABLES Olga michele Result [facility] Department [place] [address] * (ABNORMAL) eGFR (08/27/2024 12:12 PM FIELD APPLICATION ENGINEER) eGFR 51(L) >=60 mL/min/1. 73 m2 Comment: Interpretive Data Reference Interval Normal >/= 90 mL/min/1.73m2 Mildly decreased* 60 - 89 mL/min/1.73m2 Mildly to moderately decreased 45 - 59 mL/min/1.73m2 Moderately to severely decreased 30 - 44 mL/min/1.73m2 Severely decreased 15 - 29 mL/min/1.73m2 Kidney Failure < 15 mL/min/1.73m2 *Relative to young adult level Estimated glomerular filtration rate is determined by the 2020 CKD-EPI equation recommended by the National Kidney Foundation (A Unifying Approach to GFR Estimation: Recommendations of the NKF-ASK Task Force on Reassessing the Inclusion of Race in Diagnosing Kidney Disease, JASN 2020). The CKD-EPI equation should not be used for patients with unstable renal function and has not been validated in children and those over 70. Current interpretive data was last reviewed 2021. Blood 08/27/2024 12:1 2 PM FIELD APPLICATION ENGINEER 08/27/2024 12:18 PM FIELD APPLICATION ENGINEER Travon Stevens MD LAB BLOOD ORDERABLES Olga michele Result [facility] Department [place] [address] * (ABNORMAL) Differential, auto (08/27/2024 12:12 PM FIELD APPLICATION ENGINEER) Neutrophil abs 10.4(H) 1.5 - 6.5 K/cumm Comment:Testing performed by : [facility], [address] [place] [phone] Lymphocyte abs 0.2(L) 0.8 - 3.3 K/cumm [facility] Comment:Testing performed by : [facility], [address] [place] [phone] Monocyte abs 0.6 0.2 - 0.8 K/cumm [facility] Comment:Testing performed by : [facility], [address] [place] [address] Eosinophil abs 0.0 0.0 - 0.5 K/cumm [facility] Comment:Testing performed by : [facility], [address] [place] [address] Basophil abs 0.0 0.0 - 0.1 K/cumm [facility] Comment:Testing performed by : [facility], [address] [place] [phone] Neutrophil pct 92.8 % [facility] Comment: Interpretive Data Percent cell count reference ranges are not reported, since discordance with absolute values may lead to misinterpretation of CBC data. Current Interpretive Data was last revised on 2017. Testing performed by: [facility], [address] [place] [phone] Lymphocyte pct 1.9 % [facility] Comment: Interpretive Data Percent cell count reference ranges are not reported, since discordance with absolute values may lead to misinterpretation of CBC data. Current Interpretive Data was last revised on 2017. Testing performed by: [facility], [address] [place] [phone] Monocyte pct 4.9 % [facility] Comment: Interpretive Data Percent cell count reference ranges are not reported, since discordance with absolute values may lead to misinterpretation of CBC data. Current Interpretive Data was last revised on 2017. Testing performed by: [facility], [address] [place] [phone] Eosinophil pct 0.2 % [facility] Comment: Interpretive Data Percent cell count reference ranges are not reported, since discordance with absolute values may lead to misinterpretation of CBC data. Current Interpretive Data was last revised on 2017. Testing performed by: [facility], [address] [place] [phone] Basophil pct 0.2 % [facility] Comment: Interpretive Data Percent cell count reference ranges are not reported, since discordance with absolute values may lead to misinterpretation of CBC data. Current Interpretive Data was last revised on 2017. Testing performed by: [facility], [address] [place] [phone] Blood 08/27/2024 12:1 2 PM FIELD APPLICATION ENGINEER 08/27/2024 12:16 PM FIELD APPLICATION ENGINEER Travon Stevens MD LAB BLOOD ORDERABLES Olga l Result [facility] Department [place] [id number] * (ABNORMAL) CBC with auto differential (08/27/2024 12:12 PM FIELD APPLICATION ENGINEER) WBC 11.2(H) 3.8 - 9.9 K/cumm Comment:Testing performed by : [facility], [address] [place] [address] Hgb 11.0(L) 13.0 - 17.5 g/dL [facility] Comment:Testing performed by : [facility], [address] [place] [address] Hct 33.9(L) 38.9 - 50.3 % [facility] Comment:Testing performed by : [facility], [address] [place] [address] Plt 163 150 - 400 K/cumm [facility] Comment:Testing performed by : [facility], [address] [place] [address] MPV 6.8 6.8 - 10.4 fL [facility] Comment:Testing performed by : [facility], [address] [place] [address] RBC 3.86(L) 4.30 - 5.80 M/cumm [facility] Comment:Testing performed by : [facility], [address] [place] [address] MCV 87.8 81.3 - 96.4 fL [facility] Comment:Testing performed by : [facility], [address] [place] [address] MCH 28.5 27.1 - 33.3 pg [facility] Comment:Testing performed by : [facility], [address] [place] [address] MCHC 32.4 32.3 - 35.7 g/dL [facility] Comment:Testing performed by : [facility], [address] [place] [address] RDW CV 17.1(H) 11.1 - 14.9 % [facility] Comment:Testing performed by : [facility], [address] [place] [phone] NRBC abs 0.00 0.00 - 0.01 K/cumm [facility] Comment:Testing performed by : [facility], [address] [place] [phone] Blood 08/27/2024 12:1 2 PM FIELD APPLICATION ENGINEER 08/27/2024 12:16 PM FIELD APPLICATION ENGINEER Travon Stevens MD LAB BLOOD ORDERABLES Olga l Result Performing Organization Address City/[facility]/ZIP Co de Phone Number [facility] Department [place] [address] * (ABNORMAL) T-helper cells (CD4) count (08/27/2024 12:12 PM FIELD APPLICATION ENGINEER) [facility] CD4 pct 60 31 - 64 % CD4 Absolute 150(L) 365 - 1,294 cells/mcL [facility] Blood 08/27/2024 12:1 2 PM FIELD APPLICATION ENGINEER 08/27/2024 1:31 PM FIELD APPLICATION ENGINEER Travon Stevens MD LAB BLOOD ORDERABLES Olga l Result Performing Organization Address City/[facility] Co de Phone Number [facility] Department [place] [address] * (ABNORMAL) Comprehensive metabolic panel (08/27/2024 12:12 PM FIELD APPLICATION ENGINEER) [facility] Sodium 143 135 - 145 mmol/L Potassium, pl 4.3 3.3 - 4.9 mmol/L [facility] Chloride 104 97 - 110 mmol/L [facility] CO2 32 22 - 32 mmol/L [facility] Anion gap 7 2 - 15 mmol/L [facility] BUN 31(H) 6 - 25 mg/dL [facility] Creatinine 1.50(H) 0.80 - 1.30 mg/dL [facility] Glucose 206(H) 70 - 199 mg/dL [facility] Comment: Interpretive Data Fasting glucose >/= 126 mg/dl is diagnostic for diabetes. Fasting is defined as no caloric intake for at least 8 hours. Fasting glucose between 100 mg/dl to 125 mg/dl is diagnostic of prediabetes. In a patient with classic symptoms of hyperglycemia or hyperglycemic crisis, a random glucose >/= 200 mg/dl is diagnostic for diabetes. In the absence of unequivocal hyperglycemia, results should be confirmed by repeat testing. The classification and Diagnosis of Diabetes Diabetes Care 2021; 46: S19-S40. Current interpretive data was last revised 2022. Calcium 9.4 8.5 - 10.3 mg/dL [facility] Bilirubin, total 0.2 0.1 - 1.2 mg/dL [facility] Protein, pl 7.0 6.5 - 8.5 g/dL [facility] Albumin 4.0 3.5 - 5.0 g/dL [facility] Alk phos 66 40 - 130 Units/L [facility] ALT 27 7 - 55 Units/L [facility] AST 16 10 - 50 Units/L [facility] Blood 08/27/2024 12:1 2 PM FIELD APPLICATION ENGINEER 08/27/2024 12:18 PM FIELD APPLICATION ENGINEER us Travon Stevens MD LAB BLOOD ORDERABLES Olga michele Result [facility] [place] [address] * MRI Brain W WO Contrast (08/25/2024 3:03 PM FIELD APPLICATION ENGINEER) Anatomical Region Laterality Modality Head and Neck N/A Magnetic Resonan ce 08/25/2024 5:49 PM FIELD APPLICATION ENGINEER Impressions 08/25/2024 5:49 PM FIELD APPLICATION ENGINEER Postoperative findings with marked interval increase in size of masslike enhancement within the left parieto-occipital lobe and elevated relative cerebral blood volume along the periphery of this region of signal abnormality, compatible with progression of residual disease. Electronically signed by: Silvio Dudley MD Narrative 08/25/2024 5:49 PM FIELD APPLICATION ENGINEER EXAMINATION: Magnetic resonance imaging (MRI) of the brain and brainstem without and with contrast HISTORY: Brain/HOSE MENDER neoplasm, assess treatment response. TECHNIQUE: Multiplanar multi-weighted MRI of the brain and brainstem was performed without and with intravenous contrast using the brain tumor protocol. Contrast information: 20 mL Gadoterate meglumine COMPARISON: 04/08/2024 FINDINGS: Redemonstrated postoperative findings from left parietal craniotomy and underlying mass resection with no substantial interval change in extensive T2 FLAIR hyperintense signal surrounding the treatment site compatible with residual vasogenic edema/posttreatment gliosis. As noted before, this signal abnormality extends caudally with involvement of the left cerebral peduncle and left lateral medulla, overall not substantially changed in appearance since 2023. No interval change in underlying encephalomalacia. Scattered foci of susceptibility within the treatment site is compatible with hemosiderin deposition. Postcontrast images are mildly motion degraded but are notable for marked interval increase in size of irregular masslike enhancement within the high left parietal lobe extending medially along the left parafalcine space. Peripheral enhancement with central hypointensity along the cephalad aspect of the enhancing region is also markedly increased in size with extension dorsally into the medial left occipital lobe. MR perfusion imaging demonstrates subtly elevated relative cerebral blood volume along the periphery of this enhancing conglomerate. No acute intracranial infarction or hemorrhage. Cerebral volume loss without hydrocephalus. Periventricular white matter T2 FLAIR hyperintense signal is nonspecific but may reflect underlying chronic small vessel ischemic changes. The superior sagittal sinus demonstrates normal venous flow. The corpus callosum is normal in shape and signal intensity. The posterior fossa is unremarkable. Partially empty sella. The brainstem and craniocervical junction are unremarkable. The visualized portions of the orbits are normal. The visualized portions of the mastoids are normal. The visualized portions of the paranasal sinuses are normal. Normal flow voids are demonstrated in the carotid arteries and basilar artery. Procedure Note Silvio Dudley MD - 08/25/2024 EXAMINATION: Magnetic resonance imaging (MRI) of the brain and brainstem without and with contrast HISTORY: Brain/HOSE MENDER neoplasm, assess treatment response. TECHNIQUE: Multiplanar multi-weighted MRI of the brain and brainstem was performed without and with intravenous contrast using the brain tumor protocol. Contrast information: 20 mL Gadoterate meglumine COMPARISON: 04/08/2024 FINDINGS: Redemonstrated postoperative findings from left parietal craniotomy and underlying mass resection with no substantial interval change in extensive T2 FLAIR hyperintense signal surrounding the treatment site compatible with residual vasogenic edema/posttreatment gliosis. As noted before, this signal abnormality extends caudally with involvement of the left cerebral peduncle and left lateral medulla, overall not substantially changed in appearance since 2023. No interval change in underlying encephalomalacia. Scattered foci of susceptibility within the treatment site is compatible with hemosiderin deposition. Postcontrast images are mildly motion degraded but are notable for marked interval increase in size of irregular masslike enhancement within the high left parietal lobe extending medially along the left parafalcine space. Peripheral enhancement with central hypointensity along the cephalad aspect of the enhancing region is also markedly increased in size with extension dorsally into the medial left occipital lobe. MR perfusion imaging demonstrates subtly elevated relative cerebral blood volume along the periphery of this enhancing conglomerate. No acute intracranial infarction or hemorrhage. Cerebral volume loss without hydrocephalus. Periventricular white matter T2 FLAIR hyperintense signal is nonspecific but may reflect underlying chronic small vessel ischemic changes. The superior sagittal sinus demonstrates normal venous flow. The corpus callosum is normal in shape and signal intensity. The posterior fossa is unremarkable. Partially empty sella. The brainstem and craniocervical junction are unremarkable. The visualized portions of the orbits are normal. The visualized portions of the mastoids are normal. The visualized portions of the paranasal sinuses are normal. Normal flow voids are demonstrated in the carotid arteries and basilar artery. IMPRESSION: Postoperative findings with marked interval increase in size of masslike enhancement within the left parieto-occipital lobe and elevated relative cerebral blood volume along the periphery of this region of signal abnormality, compatible with progression of residual disease. Electronically signed by: Silvio Dudley MD Travon Stevens MD [facility] MRI PROCEDURES Final Result * (ABNORMAL) eGFR (07/30/2024 1:28 PM FIELD APPLICATION ENGINEER) eGFR 50(L) >=60 mL/min/1. 73 m2 Comment: Interpretive Data Reference Interval Normal >/= 90 mL/min/1.73m2 Mildly decreased* 60 - 89 mL/min/1.73m2 Mildly to moderately decreased 45 - 59 mL/min/1.73m2 Moderately to severely decreased 30 - 44 mL/min/1.73m2 Severely decreased 15 - 29 mL/min/1.73m2 Kidney Failure < 15 mL/min/1.73m2 *Relative to young adult level Estimated glomerular filtration rate is determined by the 2020 CKD-EPI equation recommended by the National Kidney Foundation (A Unifying Approach to GFR Estimation: Recommendations of the NKF-ASK Task Force on Reassessing the Inclusion of Race in Diagnosing Kidney Disease, JASN 2020). The CKD-EPI equation should not be used for patients with unstable renal function and has not been validated in children and those over 70. Current interpretive data was last reviewed 2021. Blood 07/30/2024 1:28 PM FIELD APPLICATION ENGINEER 07/30/2024 1:31 PM FIELD APPLICATION ENGINEER Travon Stevens MD LAB BLOOD ORDERABLES Olga michele Result [facility] [place] [address] * (ABNORMAL) Differential, auto (07/30/2024 1:28 PM FIELD APPLICATION ENGINEER) Neutrophil abs 10.8(H) 1.5 - 6.5 K/cumm Comment: See updated manual differential results Testing performed by: [facility], [address] [place], [place] [phone] Lymphocyte abs 0.5(L) 0.8 - 3.3 K/cumm CERNER BJ Comment: See updated manual differential results Testing performed by: [facility], [address] [place] [phone] Monocyte abs 0.4 0.2 - 0.8 K/cumm CERNER BJ Comment: See updated manual differential results Testing performed by: [facility], [address] [place] [phone] Eosinophil abs 0.0 0.0 - 0.5 K/cumm CERNER BJ Comment: See updated manual differential results Testing performed by: [facility], [address] [place] [phone] Basophil abs 0.0 0.0 - 0.1 K/cumm CERMAGDA BJ Comment: See updated manual differential results Testing performed by: [facility], [address] [place] [phone] Neutrophil pct 91.9 % [facility] Comment: See updated manual differential results Interpretive Data Percent cell count reference ranges are not reported, since discordance with absolute values may lead to misinterpretation of CBC data. Current Interpretive Data was last revised on 2017. Testing performed by: [facility], [address] [place] [phone] Lymphocyte pct 4.1 % [facility] Comment: See updated manual differential results Interpretive Data Percent cell count reference ranges are not reported, since discordance with absolute values may lead to misinterpretation of CBC data. Current Interpretive Data was last revised on 2017. Testing performed by: [facility], [address] [place] [phone] Monocyte pct 3.6 % [facility] Comment: See updated manual differential results Interpretive Data Percent cell count reference ranges are not reported, since discordance with absolute values may lead to misinterpretation of CBC data. Current Interpretive Data was last revised on 2017. Testing performed by: [facility], [address] [place] [phone] Eosinophil pct 0.1 % [facility] Comment: See updated manual differential results Interpretive Data Percent cell count reference ranges are not reported, since discordance with absolute values may lead to misinterpretation of CBC data. Current Interpretive Data was last revised on 2017. Testing performed by: [facility], [address] [place] [phone] Basophil pct 0.3 % [facility] Comment: See updated manual differential results Interpretive Data Percent cell count reference ranges are not reported, since discordance with absolute values may lead to misinterpretation of CBC data. Current Interpretive Data was last revised on 2017. Testing performed by: [facility], [address] [place] [phone] Blood 07/30/2024 1:28 PM FIELD APPLICATION ENGINEER 07/30/2024 1:30 PM FIELD APPLICATION ENGINEER Travon Stevens MD LAB BLOOD ORDERABLES Edit ed Result - Final [facility] Department [place] [address] * (ABNORMAL) CBC with auto differential (07/30/2024 1:28 PM FIELD APPLICATION ENGINEER) WBC 11.8(H) 3.8 - 9.9 K/cumm Comment:Testing performed by : [facility], [address] [place] [address] Hgb 11.4(L) 13.0 - 17.5 g/dL CERNER BJ Comment:Testing performed by : [facility], [address] [place] [address] Hct 35.6(L) 38.9 - 50.3 % CERNER BJ Comment:Testing performed by : [facility], [address] [place] [address] Plt 275 150 - 400 K/cumm CERNER BJ Comment:Testing performed by : [facility], [address] [place] [address] MPV 6.8 6.8 - 10.4 fL CERNER BJ Comment:Testing performed by : [facility], [address] [place] [address] RBC 4.04(L) 4.30 - 5.80 M/cumm CERNER BJ Comment:Testing performed by : [facility], [address] [place] [address] MCV 88.1 81.3 - 96.4 fL CERNER BJ Comment:Testing performed by : [facility], [address] [place] [address] MCH 28.3 27.1 - 33.3 pg CERNER BJ Comment:Testing performed by : [facility], [address] [place] [address] MCHC 32.1(L) 32.3 - 35.7 g/dL CERNER BJ Comment:Testing performed by : [facility], [address] [place] [phone] RDW CV 15.9(H) 11.1 - 14.9 % CERMAGDA PERALTA Comment:Testing performed by : [facility], [address] [place] [address] NRBC abs 0.00 0.00 - 0.01 K/cumm CERMAGDA BJ Comment:Testing performed by : [facility], [address] [place] [address] Blood 07/30/2024 1:28 PM FIELD APPLICATION ENGINEER 07/30/2024 1:30 PM FIELD APPLICATION ENGINEER Travon Stevens MD LAB BLOOD ORDERABLES Edit ed Result - Final SARAH PERALTA [facility] Department [place] [address] * (ABNORMAL) Manual Differential (07/30/2024 1:28 PM FIELD APPLICATION ENGINEER) Cells Counted 200 Comment:Testing performed by : [facility], [address] [place] [address] Neutrophil abs 10.7(H) 1.5 - 6.5 K/cumm CERMAGDA BJ Comment:Testing performed by : [facility], [address] [place] [address] Lymphocyte abs 0.4(L) 0.8 - 3.3 K/cumm CERMAGDA BJ Comment:Testing performed by : [facility], [address] [place] [address] Monocyte abs 0.4 0.2 - 0.8 K/cumm CERMAGDA BJ Comment:Testing performed by : [facility], [address] [place] [address] Eosinophil abs 0.1 0.0 - 0.5 K/cumm CERMAGDA BJ Comment:Testing performed by : [facility], [address] [place] [address] Basophil abs 0.0 0.0 - 0.1 K/cumm [facility] Comment:Testing performed by : [facility], [address] [place] [phone] Neutrophil pct 91.0 % [facility] Comment: Interpretive Data Percent cell count reference ranges are not reported, since discordance with absolute values may lead to misinterpretation of CBC data. Current Interpretive Data was last revised on 2017. Testing performed by: [facility], [address] [place] [phone] Lymphocyte pct 3.0 % [facility] Comment: Interpretive Data Percent cell count reference ranges are not reported, since discordance with absolute values may lead to misinterpretation of CBC data. Current Interpretive Data was last revised on 2017. Testing performed by: [facility], [address] [place] [phone] Monocyte pct 3.0 % [facility] Comment: Interpretive Data Percent cell count reference ranges are not reported, since discordance with absolute values may lead to misinterpretation of CBC data. Current Interpretive Data was last revised on 2017. Testing performed by: [facility], [address] [place] [phone] Eosinophil pct 1.0 % [facility] Comment: Interpretive Data Percent cell count reference ranges are not reported, since discordance with absolute values may lead to misinterpretation of CBC data. Current Interpretive Data was last revised on 2017. Testing performed by: [facility], [address] [place] [phone] Basophil pct 0.0 % [facility] Comment: Interpretive Data Percent cell count reference ranges are not reported, since discordance with absolute values may lead to misinterpretation of CBC data. Current Interpretive Data was last revised on 2017. Testing performed by: [facility], [address] [place] [phone] Metamyelocyte pct 1.0 % [facility] Comment:Testing performed by : [facility], [address] [place] [phone] Myelocyte pct 1.0 % [facility] Comment:Testing performed by : [facility], [address] [place] [phone] Promyelocyte pct 1.0 % CERMAGDA BJ Comment:Testing performed by : [facility], [address] [place], [place] [phone] Variant lymph pct 1.0 % CERMAGDA BJ Comment:Testing performed by : [facility], [address] [place] [phone] Polychromasia 1+(A) CERMAGDA BJ Comment:Testing performed by : [facility], [address] [place] [phone] Anisocytosis 1+(A) CERMAGDA BJ Comment:Testing performed by : [facility], [address] [place], [place] [phone] Poikilocytosis 1+(A) CERMAGDA BJ Comment:Testing performed by : [facility], [address] [place] [phone] Microcytes 1+(A) CERMAGDA [facility] Comment:Testing performed by : [facility], [address] [place] [phone] Elliptocytes 1+(A) CERMAGDA [facility] Comment:Testing performed by : [facility], [address] [place] [phone] Teardrop cells 1+(A) CERMAGDA [facility] Comment:Testing performed by : [facility], [address] [place] [phone] Platelet estimate Adequate CERMAGDA [facility] Comment:Testing performed by : [facility], [address] [place] [phone] Giant platelets Present(A) CERMAGDA BJ Comment:Testing performed by : [facility], [address] [place] [phone] Blood 07/30/2024 1:28 PM FIELD APPLICATION ENGINEER 07/30/2024 1:30 PM FIELD APPLICATION ENGINEER us Travon Stevens MD LAB BLOOD ORDERABLES Olga l Result [facility] [place] [address] * (ABNORMAL) T-helper cells (CD4) count (07/30/2024 1:28 PM FIELD APPLICATION ENGINEER) [facility] CD4 pct 45 31 - 64 % CD4 Absolute 221(L) 365 - 1,294 cells/mcL [facility] Blood 07/30/2024 1:28 PM FIELD APPLICATION ENGINEER 07/30/2024 5:14 PM FIELD APPLICATION ENGINEER Travon Stevens MD LAB BLOOD ORDERABLES Olga l Result [facility] Department [place] [address] * (ABNORMAL) Comprehensive metabolic panel (07/30/2024 1:28 PM FIELD APPLICATION ENGINEER) [facility] Sodium 143 135 - 145 mmol/L Potassium, pl 4.1 3.3 - 4.9 mmol/L [facility] Chloride 104 97 - 110 mmol/L [facility] CO2 32 22 - 32 mmol/L [facility] Anion gap 7 2 - 15 mmol/L [facility] BUN 38(H) 6 - 25 mg/dL [facility] Creatinine 1.54(H) 0.80 - 1.30 mg/dL [facility] Glucose 161 70 - 199 mg/dL [facility] Comment: Interpretive Data Fasting glucose >/= 126 mg/dl is diagnostic for diabetes. Fasting is defined as no caloric intake for at least 8 hours. Fasting glucose between 100 mg/dl to 125 mg/dl is diagnostic of prediabetes. In a patient with classic symptoms of hyperglycemia or hyperglycemic crisis, a random glucose >/= 200 mg/dl is diagnostic for diabetes. In the absence of unequivocal hyperglycemia, results should be confirmed by repeat testing. The classification and Diagnosis of Diabetes Diabetes Care 2021; 46: S19-S40. Current interpretive data was last revised 2022. Calcium 9.0 8.5 - 10.3 mg/dL [facility] Bilirubin, total 0.2 0.1 - 1.2 mg/dL [facility] Protein, pl 6.8 6.5 - 8.5 g/dL [facility] Albumin 3.5 3.5 - 5.0 g/dL [facility] Alk phos 79 40 - 130 Units/L [facility] ALT 27 7 - 55 Units/L [facility] AST 25 10 - 50 Units/L [facility] Blood 07/30/2024 1:28 PM FIELD APPLICATION ENGINEER 07/30/2024 1:31 PM FIELD APPLICATION ENGINEER Travon Stevens MD LAB BLOOD ORDERABLES Olga l Result Performing Organization Address City/[facility]/ZIP Co de Phone Number [facility] Department [place] [address] * (ABNORMAL) Hemoglobin A1c (09/18/2022 6:31 AM CDT) Hgb A1C 8.3(H) 4.0 - 5.6 % SARAH NICHOLS Estimated Average Glucose 192 mg/dL SARAH Comment: The ADA recommends reporting an estimated Average Glucose (eAG) with all Hemoglobin A1c results using the equation derived from a study of 507 normal and diabetic adults. Minority populations were underrepresented and children were not included. (Diabetes Care 31:4110-8890, 2008). The eAG is not equivalent to a fasting glucose. Blood 09/18/2022 6:31 AM CDT 09/18/2022 6:58 AM CDT Enrique Castro MD LAB BLOOD ORDERABLES Final Re sult SARAH [address] [facility] [place] [address] * (ABNORMAL) Lipid panel (08/24/2021 2:54 AM FIELD APPLICATION ENGINEER) Cholesterol 166 30 - 199 mg/dL SARAH Comment: Interpretive Data Ages < or = 19 years Acceptable: <170 mg/dL Borderline high: 170-199 mg/dL High: >or= 200 mg/dL Ages > or = 20 years Desirable: <200 mg/dL Borderline high: 200-239 mg/dL High: >or= 240 mg/dL Literature References: 1. Expert Panel on Integrated Guidelines for Cardiovascular Health and Risk Reduction in Children and Adolescents. Pediatrics 2011;128:S213 2. NCEP Expert Panel. Circulation 2004;110:227 Current Interpretive Data was last revised on 2018. Triglycerides 157(H) <=149 mg/dL SARAH Comment: Interpretive Data Ages < or = 9 years Acceptable: <75 mg/dL Borderline high: 75-99 mg/dL High: >or= 100 mg/dL Ages 10 to 20 years Acceptable: <90 mg/dL Borderline high: 90-129 mg/dL High: >or= 130 mg/dL Ages > or = 20 years Desirable: <150 mg/dL Borderline high: 150-199 mg/dL High: 200-499 mg/dL Very high: >or= 499 mg/dL Literature References: 1. Expert Panel on Integrated Guidelines for Cardiovascular Health and Risk Reduction in Children and Adolescents. Pediatrics 2011;128:S213 2. NCEP Expert Panel. Circulation 2003;110:227 Current Interpretive Data was last revised on 2018. HDL 32(L) >=40 mg/dL SARHA Comment: Interpretive Data Ages < or = 19 years Acceptable: >45 mg/dL Borderline low: 40-45 mg/dL Low: <40 mg/dL Ages > or = 20 years Desirable: >or= 60 mg/dL Low: <40 mg/dL Literature References: 1. Expert Panel on Integrated Guidelines for Cardiovascular Health and Risk Reduction in Children and Adolescents. Pediatrics 2011;128:S213 2. NCEP Expert Panel. Circulation 2004;110:227 Current Interpretive Data was last revised on 2018. LDL, calculated 103 <=129 mg/dL SARAH Comment: Interpretive Data Ages < or = 19 years Acceptable: <110 mg/dL Borderline high: 110-129 mg/dL High: >or= 130 mg/dL Ages > or = 20 years Optimal: <100 mg/dL Near optimal: 100-129 mg/dL Borderline high: 130-159 mg/dL High: >160 mg/dL Literature References: 1. Expert Panel on Integrated Guidelines for Cardiovascular Health and Risk Reduction in Children and Adolescents. Pediatrics 2011;128:S213 2. NCEP Expert Panel. Circulation 2004;110:227 Current Interpretive Data was last revised on 2018. Non-HDL Cholesterol 134 mg/dL SARAH Comment: Interpretive Data Ages < or = 19 years Acceptable: <120 mg/dL Borderline high: 120-144 mg/dL High: >145 mg/dL Ages > or = 20 years When triglycerides are >200 mg/dL, Non-HDL cholesterol is a secondary target of therapy with treatment goals that are 30 mg/dL greater than the LDL cholesterol target. Literature References: 1. Expert Panel on Integrated Guidelines for Cardiovascular Health and Risk Reduction in Children and Adolescents. Pediatrics 2011;128:S213 2. NCEP Expert Panel. Circulation 2004;110:227 Current Interpretive Data was last revised on 2018. Chol/HDL ratio 5 SARAH Blood 08/24/2021 2:54 AM FIELD APPLICATION ENGINEER 08/24/2021 3:09 AM FIELD APPLICATION ENGINEER Monik Jimenez MD LAB BLOOD ORDERABLES Final Result SARAH [address] [facility] [place] [address] * Diabetic Eye Exam (02/22/2021) 02/22/2021 [facility] Provider HEALTH MAINTENANCE Final Result * PSA screen (07/23/2020 11:01 AM FIELD APPLICATION ENGINEER) PSA 0.5 0.0 - 4.0 ng/mL [facility] - 01 Comment: Juli ECLIA methodology. According to the [employer], Serum PSA should decrease and remain at undetectable levels after radical prostatectomy. The AUA defines biochemical recurrence as an initial PSA value 0.2 ng/mL or greater followed by a subsequent confirmatory PSA value 0.2 ng/mL or greater. Values obtained with different assay methods or kits cannot be used interchangeably. Results cannot be interpreted as absolute evidence of the presence or absence of malignant disease. Blood specimen (specimen) 07/23/2020 11:01 AM FIELD APPLICATION ENGINEER 07/23/2020 Narrative [facility] - 07/25/2020 7:35 AM FIELD APPLICATION ENGINEER Performed at: - [facility] [address] [id number] [employer]: Marlon Knowles PhD, Phone: [phone] Lan Doss MD LAB BLOOD ORDERABLES Final Re sult [facility] - 01 * Colonoscopy (08/23/2014) Anatomical Region Laterality Modality Other us Historical Provider ENDOSCOPY PROCEDURES Olga l Result from Last 3 Months or Most Recently Relevant to Health Maintenance Insurance MEDICARE [facility] MEDICARE [facility] MEDICARE SUPPLEMENT MEDICARE [facility] MEDICARE SUPPLEMENT Advance Directives For more information, please contact: [phone] Documents on File Type Date Recorded Patient Supervisor Post Wave Expl anation ADVANCE DIRECTIVE 02/19/2022 11:51 AM ADVANCE DIRECTIVE 01/25/2021 ADVANCE DIRECTIVE 07/02/2018 4:48 PM POWER OF WEB WEAVER/ LAST WILL AND TESTAME * Full Code (Latest Code Status on File) Date Activated Date Inactivated Comments 09/17/2022 10:44 PM 09/20/2022 8:03 PM * Full Code Date Activated Date Inactivated Comments 04/20/2022 8:31 PM 05/01/2022 6:05 PM * Full Code Date Activated Date Inactivated Comments 10/02/2021 4:14 PM 10/04/2021 1:22 PM * Full Code Date Activated Date Inactivated Comments 08/23/2021 4:19 PM 08/24/2021 9:54 PM * Full Code Date Activated Date Inactivated Comments 07/11/2021 1:19 PM 07/15/2021 9:04 PM Healthcare Agents on File Name Relationship Healthcare Agent Relationshi p Communication Catherine Talley Spouse Health Care Agent [email or web address] Care Teams Dna Sequencing Associate Relationship Specialty Start Date End Date Lan Doss MD PCP - General Family Medicine 08/23/21 Lan Doss MD 08/23/21 Travon Stevens MD Medical Oncologist/Canvas Repairer Medical Oncology 11/11/18 Deshawn Penaloza MD Surgeon Neurosurgery 01/23/19
--- OUTSIDE RECORDS SUMMARY | 2024-10-09 07:23 | XMS_ITS | Referral Summary ---
Author Organization [facility] Address [address] [place] [address] Care Team Providers Care Electronic Controls Repairer Supervisor Name Role Phone Lan Doss MD Primary Care Provider Lan Doss MD Unavailable [phone] Travon Stevens MD Unavailable Deshawn Penaloza MD Unavailable Encounters Date Type Department Care Team Description 09/24/2024 11:45 AM CDT Lab [facility] - Lab Collection [facility] Floor [address] [place] [address] Glioblastoma (HCC) 09/24/2024 12:40 PM CDT Office Visit [facility] Oncology [facility] Floor 1, [address] [place] [address] Travon Stevens MD Glioblastoma (HCC) (Primary Dx) 09/24/2024 11:30 AM CDT Lab [facility] Oncology Lab [address] [facility] Floor 5 [place] [address] Glioblastoma (HCC) 09/22/2024 Orders Only [facility] Oncology [facility] Floor 5 [place] [address] Travon Stevens MD 08/27/2024 Orders Only [facility] Oncology [facility] Floor 1, [address] [place] [address] Emory Alcazar RN Glioblastoma (HCC) (Primary Dx); Localized edema 08/27/2024 Orders Only [facility] Neurosurgery [address] [facility] Floor 1, [address] [place] [address] Travon Stevens MD 08/27/2024 12:15 PM LOCKSTITCH BINDER Lab [facility] [place] - Lab Collection [address] Floor 5 [place] [address] Glioblastoma (HCC) 08/27/2024 1:00 PM LOCKSTITCH BINDER Office Visit [facility] Oncology [facility] Floor 1, [address] [place] [address] Travon Stevens MD Glioblastoma (HCC) (Primary Dx) 08/27/2024 12:00 PM LOCKSTITCH BINDER Lab [facility] Oncology Lab [facility] Floor [address] [place] [address] Glioblastoma (HCC) 08/25/2024 1:16 PM LOCKSTITCH BINDER - 08/25/2024 11:59 PM [facility] [address] [place] [address] Travon Stevens MD Glioblastoma (HCC) Discharge Disposition: Discharge to home or self care 07/31/2024 Orders Only [facility] Oncology [facility] Floor 1, [address] [place] [address] Travon Stevens MD 07/30/2024 1:30 PM LOCKSTITCH BINDER Lab [facility] [place] - Lab Collection [facility] Floor [address] [place] [address] Glioblastoma (HCC) 07/30/2024 2:20 PM LOCKSTITCH BINDER Office Visit [facility] Oncology [facility] Floor 1, [address] [place] [address] Travon Stevens MD Glioblastoma (HCC) (Primary Dx); Flaccid hemiplegia affecting right dominant side, unspecified etiology (HCC); Seizure disorder (HCC); Type 2 diabetes mellitus with stage 3b chronic kidney disease, with long-term current use of insulin (HCC); Morbid (severe) obesity due to excess calories (HCC) 07/30/2024 1:15 PM LOCKSTITCH BINDER Lab [facility] Oncology Lab [address] [facility] Floor 5 [place] [address] Glioblastoma (HCC) 07/17/2024 Orders Only [facility] Oncology [address] [facility] Floor 1, [address] [place] [address] Emory Alcazar RN Glioblastoma (HCC) (Primary Dx) 07/17/2024 Telephone [facility] Oncology [address] [facility] Floor 1, [address] [place] [address] Emory Alcazar RN from Last 3 Months Allergies No known active allergies Medications rizatriptan [...] total) by mouth daily 30 capsule 5 02/24/20 22 Active levETIRAcetam (KEPPRA) 1,000 mg tablet [...] 24 Active ondansetron (ZOFRAN) 8 mg tabletIndicati ons:Uma kidd (JUSTEN) Take 1 tablet (8 mg total) by mouth every 8 (eight) hours as needed for nausea or vomiting Take 30 minutes prior to oral chemotherapy then every 8 hours as needed up to 3 doses in 24 hours if prochlorperazine does not stop nausea. 24 tablet 3 05/20/20 24 Active prochlorperazi ne (Compazine) 10 mg tabletIndicati ons:Uma kidd (JUSTEN) Take 1 tablet (10 mg total) by mouth every 6 (six) hours as needed for nausea or vomiting Use first for nausea 120 tablet 3 05/20/20 24 Active amLODIPine (NORVASC) 10 mg tablet Take 1 tablet (10 mg total) by mouth daily Active gabapentin (NEURONTIN) 300 mg capsuleIndicat ions:Lupillo arora (JUSTEN) Take 1 capsule (300 mg total) by mouth 3 (three) times a day 90 capsule 11 08/27/19 25 Active temozolomide (TEMODAR) 250 mg capsuleIndicat ions:Lupillo leroya (JUSTEN) Take 2 capsules (500 mg) by mouth daily for 5 days. Take on days 1-5 every 28 days. 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 Baseline weakness due to affects of GBM, continue supportive care, notify provider for change in condition. Localized swelling on right hand 07/28/2022 Assessment & Plan (07/28/2022 8:16 PM LOCKSTITCH BINDER): Increase in edema to R hand, presume positional and is edematous at baseline. compression wrap applied by me on exam, assisted to reposition RUE sling, continue to elevate while resting, PT/OT as tolerated, no concern for cellulitis or clot, compartment is soft Functional diarrhea 06/27/2022 Assessment & Plan (06/27/2022 10:18 AM LOCKSTITCH BINDER): DC b.i.d. desina, notify provider for acute abdominal pain, bloody stools or fever Leg edema, right 06/11/2022 Assessment & Plan (06/11/2022 5:06 AM LOCKSTITCH BINDER): No DVT. Start patient on Bactrim. Continue Lasix 40 mg for now continue 1 tab, as patient creatinine 1.6. Monitor symptoms, labs Primary insomnia 05/29/2022 Assessment & Plan (05/29/2022 11:01 AM LOCKSTITCH BINDER): Try melatonin 10 mg nightly. Polyneuropathy associated with underlying diseas e 05/02/2022 Assessment & Plan (05/22/2022 9:21 AM LOCKSTITCH BINDER): Continue Cymbalta 30 mg, Neurontin 300 mg b.i.d.. Assessment & Plan (05/02/2022 6:22 AM CDT): Continue Cymbalta 30 mg, Neurontin 300 mg b.i.d. Lumbar degenerative disc disease 02/23/2022 Speech and language deficits 11/01/2021 Assessment & Plan (08/24/2022 12:46 PM LOCKSTITCH BINDER): Improving with ST Getting ready to transition to assisted living Apraxia of speech 11/01/2021 Assessment & Plan (05/22/2022 9:20 AM LOCKSTITCH BINDER): Patient need to get FEES. Has been ordered from [facility]. Need to confirm with family Assessment & Plan (05/18/2022 10:26 AM LOCKSTITCH BINDER): FEES ordered at [facility] but unable to obtain. Recommend Outpt eval & treat with FEEs. Have placed ordered for d/c. Family will need to transport. Assessment & Plan (05/14/2022 11:40 AM LOCKSTITCH BINDER): Waiting on FEEs to be scheduled. Assessment & Plan (05/11/2022 11:52 AM LOCKSTITCH BINDER): Concerns with vocal cord atrophy to R side. Have ordered FEES to assess. 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 Decadron, seizure prophylaxis, denies headache or change in symptoms, does well with therapy and participates in care, continue supportive measures, follow-up with Neuro- Oncology Assessment & Plan (07/28/2022 8:17 PM LOCKSTITCH BINDER): remains with R sided weakness and expressive aphasia, able to self propel WC and participate in care, cont PT/OT, decadron daily. Sz prophylaxis, nsgy f/u Assessment & Plan (07/24/2022 11:21 AM LOCKSTITCH BINDER): Pt of Dr. Gomez at [facility] - s/p 06/30/2018, gross total resection of left parietal tumor. Surgeon Dr. Penaloza. Pathology: - GBM, MGMT promoter methylated, EGFR amplified, monosomic loss of PTEN. Continue seizure prophylaxis, decadron, BP management, repeat BMP to monitor sodium, pain control denies CARPENTER PT OT BOWLING BALL MOLD ASSEMBLER following Assessment & Plan (06/11/2022 5:08 AM LOCKSTITCH BINDER): Continue dexamethasone 8 mg a.m. and 4 mg p.m., Trileptal, Keppra. Patient had appointment with Dr. Hernandez on 06/07, now started on Bactrim every other day. Brain MRI scheduled for 06/17/2022. Next follow-up with Dr. Hernandez on 06/21/2022 Assessment & Plan (05/22/2022 9:12 AM LOCKSTITCH BINDER): Pt is s/p 06/30/2018, gross total resection of left parietal tumor, per surgeon Dr. Penaloza. Completed radiation therapy, on Avastin + Optune device since October 2018, w/C5 on 04/05/22. Follow up with Dr. Stevens in [facility]. Now rec dexamethasone 8 mg in AM and 4 mg in PM. To continue antiseizure medication, aggressively treat hypertension Assessment & Plan (05/18/2022 10:26 AM LOCKSTITCH BINDER): Continue antiseizure meds & Dexamethasone. Outpt Onc f/u. Assessment & Plan (05/02/2022 6:23 AM CDT): Pt is s/p 06/30/2018, gross total resection of left parietal tumor, per surgeon Dr. Penaloza. Completed radiation therapy, on Avastin + Optune device since October 2018, w/C5 on 04/05/22. Follow up with Dr. Stevens in [facility]. Now rec dexamethasone 8 mg in AM and 4 mg in PM. To continue antiseizure medication, aggressively treat hypertension Stage 3a chronic kidney disease 08/23/2021 Assessment & Plan (06/11/2022 5:09 AM LOCKSTITCH BINDER): Creatinine improved from 1.7 to 1.6. Will repeat renal function on 06/19, as patient going to start Bactrim Assessment & Plan (05/29/2022 11:05 AM LOCKSTITCH BINDER): Creatinine 1.7. Repeat labs on 06/04 Assessment & Plan (05/22/2022 9:18 AM LOCKSTITCH BINDER): Creatinine stable at 1.4. Avoid nephrotoxic drugs, monitor renal function. Assessment & Plan (05/14/2022 11:40 AM LOCKSTITCH BINDER): Cr stable. Assessment & Plan (05/07/2022 12:16 PM LOCKSTITCH BINDER): Improved. At baseline. Continue to montior. Assessment & Plan (05/04/2022 11:20 AM CDT): At baseline. See above. Assessment & Plan (05/02/2022 6:22 AM CDT): Creatinine 1.6-1.8. Avoid nephrotoxic drugs. Monitor renal function Essential (primary) hypertension 08/23/2021 Assessment & Plan (08/06/2022 10:33 AM LOCKSTITCH BINDER): BP logs reviewed and stable, continue daily clonidine and Norvasc for BP goal less than 150 over less than 90 Assessment & Plan (05/22/2022 9:13 AM LOCKSTITCH BINDER): BP fluctuates. Cont clonidine 0.05mg bid, HCTZ 25 mg and amlodipine 10 mg. We will add hydralazine 25 mg t.i.d. with parameters if remains elevated. Monitor blood pressure, adjust meds accordingly Assessment & Plan (05/18/2022 10:27 AM LOCKSTITCH BINDER): BP stable with fluctuation. Continue to monitor. May need to increase Clonidine if remains elevated outpt. Assessment & Plan (05/14/2022 11:37 AM LOCKSTITCH BINDER): BP continues to remain elevated. Hydralazine increased Saturday. Monitor. Assessment & Plan (05/11/2022 12:01 PM LOCKSTITCH BINDER): BP remains high. Increase Hydralazine. Assessment & Plan (05/07/2022 12:12 PM LOCKSTITCH BINDER): BP elevated still, increase Hydralazine. Monitor. Assessment [...] 11/11/2018 Assessment & Plan (07/09/2022 12:17 PM LOCKSTITCH BINDER): Follows with Neurosurgery, Medical Oncology, continue PT/OT, remains with expressive aphasia and left-sided weakness able to participate in care and assist with ADLs, feed self Continue seizure prophylaxis, daily Decadron Left parietal glioblastoma multiforme, MGMT promoter methylated, EGFR amplified, monosomy of PTEN Dx 05/2018 s/p resection, proton therapy, temodar. Follows with Dr Stevens Assessment & Plan (06/27/2022 10:17 AM LOCKSTITCH BINDER): Continue b.i.d. Decadron with prophylactic Bactrim and [...] Dr [facility] was largely stable, repeat bMRI planned for 05/2021 -med onc consult Assessment & Plan (11/11/2018 8:57 AM CDT): Seeing NUS, under current treatment, weight loss, fatigue, some nausea Seizure disorder (CMS/HCC) 11/11/2018 Assessment & Plan (05/29/2022 11:03 AM LOCKSTITCH BINDER): Keppra level elevated to 50, continue Keppra [...] HCT stable L-parietal changes and likely prominent [id number] subarachnoid space over SDH Neurology consulted:- Suspect [...] 07/09/2018 Assessment & Plan (08/24/2022 12:46 PM LOCKSTITCH BINDER): Per oncology GERD (gastroesophageal reflux disease) 8 [...] 10/17/2015 Assessment & Plan (08/24/2022 12:46 PM LOCKSTITCH BINDER): D/c Sliding scale insulin Continue metformin and 10units basal insulin with close glucose monitoring May adjust basal or add back set mealtime insulin if needed Assessment & Plan (08/06/2022 10:31 AM LOCKSTITCH BINDER): Glucose logs reviewed, improved with addition of a.m. Lantus, continue 20 units HS and 5 units in a.m. with mealtime SSI, metformin, weekly Trulicity. Accu-Cheks a.c. and HS, continues on long-term p.o. steroids Assessment & Plan (07/28/2022 8:18 PM LOCKSTITCH BINDER): Hyperglycemia with steroid dosing, cont BID lantus with mealtime ssi, accuechecks ac and hs Assessment & Plan (07/24/2022 11:31 AM LOCKSTITCH BINDER): Remains with intermittent hyperglycemia, Lantus increased to 20 units HS and 5 units in a.m. continue lispro with meals, weekly Trulicity Assessment & Plan (07/09/2022 12:18 PM LOCKSTITCH BINDER): Glucose logs reviewed and noted persistent hyperglycemia, continue Trulicity, will increase HS Lantus again, continue mealtime SSI with Accu-Cheks a.c. and HS Assessment & Plan (06/27/2022 10:19 AM LOCKSTITCH BINDER): Increase HS Lantus 18 units, 8 units lispro with meals, Accu-Cheks AC and HS Assessment & Plan (06/06/2022 2:23 PM LOCKSTITCH BINDER): BG in 304 0s. Will increase Lantus from 10 units to 14 units bedtime, lispro 6 units t.i.d. with meals, will resume home med Trulicity 1 5 mg every saturday of the week. Monitor Accu-Cheks Assessment & Plan (05/22/2022 9:17 AM LOCKSTITCH BINDER): A1c 7 on 08/24/2021. Continue Lantus 10 units nighttime, lispro 6 units t.i.d. with meal. Monitor Accu-Cheks. Assessment & Plan (05/18/2022 10:24 AM LOCKSTITCH BINDER): A1c 7 08/24/21. BS 106-250. Continues on Lantus 10u + Lispro 6u Assessment & Plan (05/14/2022 11:39 AM LOCKSTITCH BINDER): BS 98-283. Good control with current regimen. Continue to monitor. Assessment & Plan (05/11/2022 11:55 AM LOCKSTITCH BINDER): BS 100-319. Currently on Basaglar 32u + [...] anemia Assessment & Plan (06/06/2022 2:25 PM LOCKSTITCH BINDER): Hemoglobin has been significantly improved to 11.4. Continue to monitor Assessment & Plan (05/14/2022 11:40 AM LOCKSTITCH BINDER): H&H stable. Expressive aphasia Assessment & Plan (07/24/2022 11:32 AM LOCKSTITCH BINDER): Intermittent, improving, follows with BOWLING BALL MOLD ASSEMBLER, swallow is appropriate, continue supportive care Assessment & Plan (07/17/2022 9:16 AM LOCKSTITCH BINDER): Making slow progress with his speech. Always tries to do more conversation and improve himself. Continue ST. Assessment & Plan (05/18/2022 10:27 AM LOCKSTITCH BINDER): Much improved. SEE ABOVE. Assessment & Plan (05/07/2022 12:16 PM LOCKSTITCH BINDER): Increased phlegm improved with flonase. Pt to continue work with BOWLING BALL MOLD ASSEMBLER. Assessment & Plan (05/04/2022 11:21 AM CDT): Feels has increase phelgm causing voice change also. Denies coughing or ST. Will add on flonase to help with any inflammation. BOWLING BALL MOLD ASSEMBLER working with patient. Morbid (severe) obesity due to excess calories Mixed hyperlipidemia Generalized weakness Assessment & Plan (05/14/2022 11:40 AM LOCKSTITCH BINDER): Continue PT/OT. Assessment & Plan (05/11/2022 11:52 AM LOCKSTITCH BINDER): Continue PT/OT. H/O craniotomy Resolved Problems Problem Noted Date Diagnosed Date Resolved Date Hyperkalemia 05/03/2022 05/14/2022 Assessment & Plan (05/07/2022 12:15 PM LOCKSTITCH BINDER): Improved. Continue to montior. Assessment & Plan (05/04/2022 11:19 AM CDT): 5.0. Unsure of cause? Trending down. Recheck labs Saturday. Stable on exam. Assessment & Plan (05/03/2022 4:23 AM CDT): Potassium 5.2. Will repeat BMP 05/03 Hypertensive urgency 04/20/2022 022 Right foot pain 12/21/2021 05/04/2022 Seizure disorder 08/23/2021 08/24/2022 Assessment & Plan (07/17/2022 9:21 AM LOCKSTITCH BINDER): Remains stable, no seizure activity noticed. Continue Keppra 2000 mg b.i.d., oxcarbazepine 300 mg b.i.d.. Follow up neurosurgeon outpatient Assessment & Plan (05/22/2022 9:12 AM LOCKSTITCH BINDER): Started in 2019 with R sided weakness and word finding difficulty. EEG now also showed left temporal region cortical irritability. To cont keppra 2000 mg bid, Oxcarbazepine 300 mg bid. seizure precautions. Follows up with neurosurgeon Dr. Penaloza Type 2 diabetes mellitus, [facility] long-term current use of insulin [...] 07/02/201808/2018 Assessment & Plan (07/03/2018 12:03 PM LOCKSTITCH BINDER): Requires intensive QID monitoring to avoid hypo and hyperlgycemia Assessment & Plan (07/02/2018 5:02 PM LOCKSTITCH BINDER): Requires intensive QID monitoring to avoid hypo and hyperlgycemia Uncontrolled type 2 diabetes with neuropathy 9 10/30/2018 Assessment & Plan (07/04/2018 12:53 PM LOCKSTITCH BINDER): Overall control adequate per patient report, but [...] HDSSI Assessment & Plan (07/02/2018 5:07 PM LOCKSTITCH BINDER): Overall control adequate per patient report, but [...] 10/30/2018 Assessment & Plan (07/03/2018 12:02 PM LOCKSTITCH BINDER): Requirement for high dose steroids complicates glycemic [...] STOP Assessment & Plan (07/02/2018 5:01 PM LOCKSTITCH BINDER): Requirement for high dose steroids complicates glycemic [...] constipation Assessment & Plan (05/07/2022 12:15 PM LOCKSTITCH BINDER): Stable on current regimen. Assessment & Plan (05/04/2022 11:17 AM CDT): Will add on colace BID & miralax PRN, continue senna BID. Monitor closely. Other PRNs available. Immunizations Immunization Administration Dates Next Due Influenza, Quadrivalent, Hig h Dose, Preservative Free, Intrr 07/04/2018 Influenza, Quadrivalent, Spl it, Preservative Free, Intramuscular 07/05/2018 Influenza, Trivalent, IM (MDV) 04/01/2013 Influenza, Trivalent, Preser vative Free, Intramuscular 07/05/2018 Influenza, Unspecified 03/31/2022(Deferr ed: Patient Refused),04/19/2021(Deferred: Patient Refused) PPD TEST 05/22/2022 Tdap 09/04/2015 Varicella 04/01/2013 Social History Tobacco [...] week 09/18/2022 [facility] or [facility] services? Never 09/18/2022 Do you belong to any clubs o r organizations such as restorationist groups, unions, fraternal or athletic groups, or [...] place to sleep or slept in a halfway (including now)? No 09/18/2022 Personal Safety Answer Date Recorded Have you ever been in or are you currently in a harmful physical or emotional relationship or is someone making you feel afraid or unsafe? Denies 09/18/2022 Sex and Gender Information Value Date Recorded Sex Assigned at Not on file Legal Sex Male 7:15 PM LOCKSTITCH BINDER Gender Identity Not on file Sexual Orientation Straight 08/31/2021 4: 21 PM LOCKSTITCH BINDER 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 Not on file Not on file Last Filed Vital Signs Vital Sign Reading Time Taken Comments Blood Pressure 131/80 08/27/2024 12:46 PM LOCKSTITCH BINDER Pulse 100 08/27/2024 12:46 PM LOCKSTITCH BINDER Temperature 36.8 C (98.2 F) 08/27/2024 12:46 PM LOCKSTITCH BINDER Respiratory Rate 17 08/27/2024 12:46 PM LOCKSTITCH BINDER Oxygen Saturation 100% 08/27/2024 12:46 PM LOCKSTITCH BINDER Inhaled Oxygen Concentration - - Weight 119.7 kg (264 lb) 08/27/2024 12:46 PM LOCKSTITCH BINDER Height 180.3 cm (5' 10.98 ) 08/27/2024 12:46 PM LOCKSTITCH BINDER Body Mass Index 36.84 08/27/2024 12:46 PM LOCKSTITCH BINDER Plan of Treatment Not on file Medical Devices Implanted Type Area Cotton Jammer Device Identifier Shelf Expiration Date Model / Serial / Lot Integra Walk-in Appointment Schedulerciences Tiff [id number] Duragen Plus 7.5x7.5cm Patch Resorbable Suturable Cranial Dura Graft - [id number] Implanted:Qty: 1 on 06/30/2018 by Deshawn Penaloza MD at [facility] Aneurysm Coils Left: Brain Integra Lif[employer]iences Tiff 02/28/2021 [id number] / / [id number] Synthes [id number] Matrixneuro 17mm .4mm Craniomaxillofacial Cover [place] - [id number] Implanted:Qty: 4 on 06/30/2018 by Deshawn Penaloza MD at [facility] Plate Left: Cranial Synthes I 04.503. 023 / / Synthes 400.834 1.6mm 2.9mm 4mm Self Drill Self Retain Low Profile Cruciform - [id number] Implanted:Qty: 23 on 06/30/2018 by Deshawn Penaloza MD at [facility] Screw Left: Cranial Synthes I 400.834 / [...] Glioblastoma (HCC) EGFR Routine 08/27/2024 12:12 PM LOCKSTITCH BINDER Glioblastoma (HCC) DIFFERENTIAL AUTO Routine 08/27/2024 12: 12 PM LOCKSTITCH BINDER Glioblastoma (HCC) CBC WITH AUTO DIFFERENTIAL Routine 08/27/2024 12:12 PM LOCKSTITCH BINDER Glioblastoma (HCC) COMPREHENSIVE METABOLIC PANEL Routine 08/27/2024 12:12 PM LOCKSTITCH BINDER Glioblastoma (HCC) T-HELPER CELLS (CD4) COUNT Routine 08/27/2024 12:12 PM LOCKSTITCH BINDER Glioblastoma (HCC) MRI BRAIN W WO CONTRAST Schedule Routine, Read Routine (OP Routine) 08/25/2024 3:03 PM LOCKSTITCH BINDER Glioblastoma (HCC) EGFR Routine 07/30/2024 1:28 PM LOCKSTITCH BINDER Glioblastoma (HCC) MANUAL DIFFERENTIAL Routine 07/30/2024 1 :28 PM LOCKSTITCH BINDER Glioblastoma (HCC) DIFFERENTIAL AUTO Routine 07/30/2024 1:2 8 PM LOCKSTITCH BINDER Glioblastoma (HCC) CBC WITH AUTO DIFFERENTIAL Routine 07/30/2024 1:28 PM LOCKSTITCH BINDER Glioblastoma (HCC) COMPREHENSIVE METABOLIC PANEL Routine 07/30/2024 1:28 PM LOCKSTITCH BINDER Glioblastoma (HCC) T-HELPER CELLS (CD4) COUNT Routine 07/30/2024 1:28 PM LOCKSTITCH BINDER Glioblastoma (HCC) HEMOGLOBIN A1C Routine 09/18/2022 6:31 AM CDT LIPID PANEL Routine 08/24/2021 2:54 AM LOCKSTITCH BINDER DIABETIC EYE EXAM Routine 02/22/2021 PSA SCREEN Routine 07/23/2020 11:01 AM LOCKSTITCH BINDER Type 2 diabetes mellitus without complication, without [...] of Race in Diagnosing Kidney Disease, JASN 202). The CKD-EPI equation should not be used for patients with unstable renal function and has not been validated in children and those over 70. Current interpretive data was last reviewed 2021. Blood 09/24/2024 11:4 1 AM CDT 09/24/2024 11:47 AM CDT us Travon Stevens MD LAB BLOOD ORDERABLES Olga ryne Result [facility] Department [place] [address] * (ABNORMAL) CBC with auto differential (09/24/2024 11:41 AM CDT) WBC 10.3(H) 3.8 - 9.9 K/cumm Comment:Testing performed by : [facility], [address] [place] [address] Hgb 10.5(L) 13.0 - 17.5 g/dL CERNER BJ Comment:Testing performed by : [facility], [address] [place] [address] Hct 32.1(L) 38.9 - 50.3 % CERNER BJ Comment:Testing performed by : [facility], [address] [place] [address] Plt 220 150 - 400 K/cumm CERNER BJ Comment:Testing performed by : [facility], [address] [place] [address] MPV 6.8 6.8 - 10.4 fL CERNER BJ Comment:Testing performed by : [facility], [address] [place] [address] RBC 3.60(L) 4.30 - 5.80 M/cumm CERNER BJ Comment:Testing performed by : [facility], [address] [place] [address] MCV 89.3 81.3 - 96.4 fL CERNER BJ Comment:Testing performed by : [facility], [address] [place] [address] MCH 29.3 27.1 - 33.3 pg CERNER BJ Comment:Testing performed by : [facility], [address] [place] [address] MCHC 32.8 32.3 - 35.7 g/dL CERNER BJ Comment:Testing performed by : [facility], [address] [place] [phone] RDW CV 19.6(H) 11.1 - 14.9 % CERMAGDA BJ Comment:Testing performed by : [facility], [address] [place], [place] [phone] NRBC abs 0.00 0.00 - 0.01 K/cumm CERMAGDA BJ Comment:Testing performed by : [facility], [address] [place] [address] Blood 09/24/2024 11:4 1 AM CDT 09/24/2024 11:42 AM CDT Travon Stevens MD LAB BLOOD ORDERABLES Edit ed Result - Final SARAH PERALTA [facility] Department [place] [address] * (ABNORMAL) Manual Differential (09/24/2024 11:41 AM CDT) Cells Counted 200 Comment:Testing performed by : [facility], [address] [place], [place] [phone] Neutrophil abs 8.7(H) 1.5 - 6.5 K/cumm CERMAGDA BJ Comment:Testing performed by : [facility], [address] [place], [place] [phone] Lymphocyte abs 0.8 0.8 - 3.3 K/cumm CERMAGDA BJ Comment:Testing performed by : [facility], [address] [place], [place] [phone] Monocyte abs 0.8 0.2 - 0.8 K/cumm CERMAGDA BJ Comment:Testing performed by : [facility], [address] [place], [place] [phone] Eosinophil abs 0.1 0.0 - 0.5 K/cumm CERMAGDA BJ Comment:Testing performed by : [facility], [address] [place], [place] [phone] Basophil abs 0.0 0.0 - 0.1 K/cumm CERNER [facility] Comment:Testing performed by : [facility], [address] [place] [phone] Neutrophil pct 84.0 % CERNER [facility] Comment: Interpretive Data Percent cell count reference ranges are not reported, since discordance with absolute values may lead to misinterpretation of CBC data. Current Interpretive Data was last revised on 2017. Testing performed by: [facility], [address] [place] [phone] Lymphocyte pct 8.0 % CERNER [facility] Comment: Interpretive Data Percent cell count reference ranges are not reported, since discordance with absolute values may lead to misinterpretation of CBC data. Current Interpretive Data was last revised on 2017. Testing performed by: [facility], [address] [place] [phone] Monocyte pct 8.0 % CERNER [facility] Comment: Interpretive Data Percent cell count reference ranges are not reported, since discordance with absolute values may lead to misinterpretation of CBC data. Current Interpretive Data was last revised on 2017. Testing performed by: [facility], [address] [place] [phone] Eosinophil pct 1.0 % CERNER BJ Comment: Interpretive Data Percent cell count reference ranges are not reported, since discordance with absolute values may lead to misinterpretation of CBC data. Current Interpretive Data was last revised on 2017. Testing performed by: [facility], [address] [place] [phone] Basophil pct 0.0 % CERNER [facility] Comment: Interpretive Data Percent cell count reference ranges are not reported, since discordance with absolute values may lead to misinterpretation of CBC data. Current Interpretive Data was last revised on 2017. Testing performed by: [facility], [address] [place] [phone] Anisocytosis 1+(A) CERNER [facility] Comment:Testing performed by : [facility], [address] [place] [phone] Platelet estimate Adequate CERNER [facility] Comment:Testing performed by : [facility], [address] [place] [phone] Blood 09/24/2024 11:4 1 AM CDT 09/24/2024 11:42 AM CDT Travon Stevens MD LAB BLOOD ORDERABLES Olga l Result Performing Organization Address [facility] Co de Phone Number [facility] Department [place] [address] * (ABNORMAL) T-helper cells (CD4) count (09/24/2024 11:41 AM CDT) CD4 pct 67(H) 31 - 64 % Comment:Ran twice. CD4 Absolute 361(L) 365 - 1,294 cells/mcL [facility] Comment:Ran twice. Blood 09/24/2024 11:4 1 AM CDT 09/24/2024 12:32 PM CDT Travon Stevens MD LAB BLOOD ORDERABLES Olga l Result Performing Organization Address [facility] de Phone Number [facility] Department [place] [address] * (ABNORMAL) Comprehensive metabolic panel (09/24/2024 11:41 AM CDT) Sodium 142 135 - 145 mmol/L Potassium, pl 4.1 3.3 - 4.9 mmol/L [facility] Chloride 104 97 - 110 mmol/L [facility] CO2 29 22 - 32 mmol/L [facility] Anion gap 9 2 - 15 mmol/L [facility] BUN 28(H) 6 - 25 mg/dL [facility] Creatinine 1.42(H) 0.80 - 1.30 mg/dL [facility] Glucose 189 70 - 199 mg/dL [facility] Comment: Interpretive Data Fasting glucose >/= [...] classification and Diagnosis of Diabetes Diabetes Care 202; 46: S19-S40. Current interpretive data was last revised 2022. Calcium 9.4 8.5 - 10.3 mg/dL [facility] Bilirubin, total <0.2 0.1 - 1.2 mg/dL [facility] Protein, pl 6.9 6.5 - 8.5 g/dL CERNER BJ Albumin 3.9 3.5 - 5.0 g/dL [facility] Alk phos 62 40 - 130 Units/L CERNER BJ ALT 20 7 - 55 Units/L CERNER [facility] AST 15 10 - 50 Units/L [facility] Blood 09/24/2024 11:4 1 AM CDT 09/24/2024 11:47 AM CDT Travon Stevens MD LAB BLOOD ORDERABLES Olga ryne Result [facility] Department [place] [address] * (ABNORMAL) eGFR (08/27/2024 12:12 PM LOCKSTITCH BINDER) eGFR 51(L) >=60 mL/min/1. 73 m2 Comment: [...] reviewed 2021. Blood 08/27/2024 12:1 2 PM [facility]STITCH BINDER 08/27/2024 12:18 PM LOCKSTITCH BINDER Travon Stevens MD LAB BLOOD ORDERABLES Olga michele Result [facility] Department [place] [address] * (ABNORMAL) Differential, auto (08/27/2024 12:12 PM LOCKSTITCH BINDER) Neutrophil abs 10.4(H) 1.5 - 6.5 K/cumm Comment:Testing performed by : [facility], [address] [place], [place] [phone] Lymphocyte abs 0.2(L) 0.8 - 3.3 K/cumm CERMAGDA [facility] Comment:Testing performed by : [facility], [address] [place] [phone] Monocyte abs 0.6 0.2 - 0.8 K/cumm CERMAGDA [facility] Comment:Testing performed by : [facility], [address] [place] [phone] Eosinophil abs 0.0 0.0 - 0.5 K/cumm CERNER BJ Comment:Testing performed by : [facility], [address] [place] [phone] Basophil abs 0.0 0.0 - 0.1 K/cumm CERNER BJ Comment:Testing performed by : [facility], [address] [place] [phone] Neutrophil pct 92.8 % [facility] Comment: Interpretive Data Percent cell count reference ranges are not reported, since discordance with absolute values may lead to misinterpretation of CBC data. Current Interpretive Data was last revised on 2017. Testing performed by: [facility], [address] [place] [phone] Lymphocyte pct 1.9 % CERMAGDA [facility] Comment: Interpretive Data Percent cell count reference ranges are not reported, since discordance with absolute values may lead to misinterpretation of CBC data. Current Interpretive Data was last revised on 2017. Testing performed by: [facility], [address] [place] [phone] Monocyte pct 4.9 % [facility] Comment: Interpretive Data Percent cell count reference ranges are not reported, since discordance with absolute values may lead to misinterpretation of CBC data. Current Interpretive Data was last revised on 2017. Testing performed by: [facility], [address] [place] [phone] Eosinophil pct 0.2 % [facility] Comment: Interpretive Data Percent cell count reference ranges are not reported, since discordance with absolute values may lead to misinterpretation of CBC data. Current Interpretive Data was last revised on 2017. Testing performed by: [facility], [address] [place] [phone] Basophil pct 0.2 % [facility] Comment: Interpretive Data Percent cell count reference ranges are not reported, since discordance with absolute values may lead to misinterpretation of CBC data. Current Interpretive Data was last revised on 2017. Testing performed by: [facility], [address] [place] [phone] Blood 08/27/2024 12:1 2 PM L[facility]STITCH BINDER 08/27/2024 12:16 PM L[employer]STITCH BINDER Travon Stevens MD LAB BLOOD ORDERABLES Olga l Result [facility] Department [place] [address] * (ABNORMAL) CBC with auto differential (08/27/2024 12:12 PM LOCKSTITCH BINDER) WBC 11.2(H) 3.8 - 9.9 K/cumm Comment:Testing performed by : [facility], [address] [place] [address] Hgb 11.0(L) 13.0 - 17.5 g/dL CERNER BJ Comment:Testing performed by : [facility], [address] [place] [address] Hct 33.9(L) 38.9 - 50.3 % CERNER BJ Comment:Testing performed by : [facility], [address] [place], [place] [phone] Plt 163 150 - 400 K/cumm CERNER BJ Comment:Testing performed by : [facility], [address] [place] [address] MPV 6.8 6.8 - 10.4 fL CERNER BJ Comment:Testing performed by : [facility], [address] [place] [address] RBC 3.86(L) 4.30 - 5.80 M/cumm CERNER BJ Comment:Testing performed by : [facility], [address] [place] [address] MCV 87.8 81.3 - 96.4 fL CERNER BJ Comment:Testing performed by : [facility], [address] [place] [address] MCH 28.5 27.1 - 33.3 pg CERNER BJ Comment:Testing performed by : [facility], [address] [place] [address] MCHC 32.4 32.3 - 35.7 g/dL CERNER BJ Comment:Testing performed by : [facility], [address] [place] [address] RDW CV 17.1(H) 11.1 - 14.9 % CERNER BJ Comment:Testing performed by : [facility], [address] [place] [address] NRBC abs 0.00 0.00 - 0.01 K/cumm CERNER BJ Comment:Testing performed by : [facility], [address] [place] [address] Blood 08/27/2024 12:1 2 PM L[employer]STITCH BINDER 08/27/2024 12:16 PM L[employer]STITCH BINDER Travon Stevens MD LAB BLOOD ORDERABLES Olga l Result Performing Organization Address City/[facility]/ZIP Co de Phone Number [facility] [place] [address] * (ABNORMAL) T-helper cells (CD4) count (08/27/2024 12:12 PM LOCKSTITCH BINDER) [facility] CD4 pct 60 31 - 64 % CD4 Absolute 150(L) 365 - 1,294 cells/mcL [facility] Blood 08/27/2024 12:1 2 PM L[employer]STITCH BINDER 08/27/2024 1:31 PM L[employer]STITCH BINDER Travon Stevens MD LAB BLOOD ORDERABLES Olga l Result Performing Organization Address [facility] de Phone Number [facility] [place] [address] * (ABNORMAL) Comprehensive metabolic panel (08/27/2024 12:12 PM LOCKSTITCH BINDER) [facility] Sodium 143 135 - 145 mmol/L Potassium, pl 4.3 3.3 - 4.9 mmol/L [facility] Chloride 104 97 - 110 mmol/L [facility] CO2 32 22 - 32 mmol/L [facility] Anion gap 7 2 - 15 mmol/L [facility] BUN 31(H) 6 - 25 mg/dL [facility] Creatinine 1.50(H) 0.80 - 1.30 mg/dL [facility] Glucose 206(H) 70 - 199 mg/dL [facility] Comment: Interpretive Data Fasting glucose >/= [...] classification and Diagnosis of Diabetes Diabetes Care 202; 46: S19-S40. Current interpretive data was last revised 2022. Calcium 9.4 8.5 - 10.3 mg/dL [facility] Bilirubin, total 0.2 0.1 - 1.2 mg/dL [facility] Protein, pl 7.0 6.5 - 8.5 g/dL [facility] Albumin 4.0 3.5 - 5.0 g/dL [facility] Alk phos 66 40 - 130 Units/L [facility] ALT 27 7 - 55 Units/L [facility] AST 16 10 - 50 Units/L [facility] Blood 08/27/2024 12:1 2 PM [employer]ITCH BINDER 08/27/2024 12:18 PM LOCKSTITCH BINDER us Travon Stevens MD LAB BLOOD ORDERABLES Olga michele Result [facility] Department [place] [address] * MRI Brain W WO Contrast (08/25/2024 3:03 PM LOCKSTITCH BINDER) Anatomical Region Laterality Modality Head and Neck N/A Magnetic Resonan ce 08/25/2024 5:49 PM LOCKSTITCH BINDER Impressions 08/25/2024 5:49 PM LOCKSTITCH BINDER Postoperative findings with marked interval increase in size of masslike enhancement within the left parieto-occipital lobe and elevated relative cerebral blood volume along the periphery of this region of signal abnormality, compatible with progression of residual disease. Electronically signed by: Silvio Dudley MD Narrative 08/25/2024 5:49 PM L[employer]STITCH BINDER EXAMINATION: Magnetic resonance imaging (MRI) of the brain and brainstem without and with contrast HISTORY: Brain/DIRECTOR AUTOMOTIVE neoplasm, assess treatment response. TECHNIQUE: Multiplanar multi-weighted [...] and brainstem without and with contrast HISTORY: Brain/DIRECTOR AUTOMOTIVE neoplasm, assess treatment response. TECHNIQUE: Multiplanar multi-weighted [...] by: Silvio Dudley MD Travon Stevens MD IM MRI PROCEDURES Final Result * (ABNORMAL) eGFR (07/30/2024 1:28 PM LOCKSTITCH BINDER) eGFR 50(L) >=60 mL/min/1. 73 m2 Comment: [...] last reviewed 2021. Blood 07/30/2024 1:28 PM LOCKSTITCH BINDER 07/30/2024 1:31 PM LOCKSTITCH BINDER Travon Stevens MD LAB BLOOD ORDERABLES Olga michele Result [facility] Department [place] [address] * (ABNORMAL) Differential, auto (07/30/2024 1:28 PM LOCKSTITCH BINDER) Neutrophil abs 10.8(H) 1.5 - 6.5 K/cumm Comment: See updated manual differential results Testing performed by: [facility], [address] [place], [place] [phone] Lymphocyte abs 0.5(L) 0.8 - 3.3 K/cumm CERNER BJ Comment: See updated manual differential results Testing performed by: [facility], [address] [place] [phone] Monocyte abs 0.4 0.2 - 0.8 K/cumm CERNER BJ Comment: See updated manual differential results Testing performed by: [facility], [address] [place] [phone] Eosinophil abs 0.0 0.0 - 0.5 K/cumm CERNER BJ Comment: See updated manual differential results Testing performed by: [facility], [address] [place] [phone] Basophil abs 0.0 0.0 - 0.1 K/cumm CERNER BJ Comment: See updated manual differential results Testing performed by: [facility], [address] [place] [phone] Neutrophil pct 91.9 % CERNER BJ Comment: See updated manual differential results Interpretive Data Percent cell count reference ranges are not reported, since discordance with absolute values may lead to misinterpretation of CBC data. Current Interpretive Data was last revised on 2017. Testing performed by: [facility], [address] [place] [phone] Lymphocyte pct 4.1 % CERNER BJ Comment: See updated manual differential results Interpretive Data Percent cell count reference ranges are not reported, since discordance with absolute values may lead to misinterpretation of CBC data. Current Interpretive Data was last revised on 2017. Testing performed by: [facility], [address] [place] [phone] Monocyte pct 3.6 % CERMAGDA PERALTA Comment: See updated manual differential results Interpretive Data Percent cell count reference ranges are not reported, since discordance with absolute values may lead to misinterpretation of CBC data. Current Interpretive Data was last revised on 2017. Testing performed by: [facility], [address] [place] [phone] Eosinophil pct 0.1 % CERMAGDA PERALTA Comment: See updated manual differential results Interpretive Data Percent cell count reference ranges are not reported, since discordance with absolute values may lead to misinterpretation of CBC data. Current Interpretive Data was last revised on 2017. Testing performed by: [facility], [address] [place] [phone] Basophil pct 0.3 % CERMAGDA PERALTA Comment: See updated manual differential results Interpretive Data Percent cell count reference ranges are not reported, since discordance with absolute values may lead to misinterpretation of CBC data. Current Interpretive Data was last revised on 2017. Testing performed by: [facility], [address] [place] [phone] Blood 07/30/2024 1:28 PM L[employer]STITCH BINDER 07/30/2024 1:30 PM L[employer]STITCH BINDER us Travon Stevens MD LAB BLOOD ORDERABLES Edit ed Result - Final SARAH PERALTA [facility] Department [place] [address] * (ABNORMAL) CBC with auto differential (07/30/2024 1:28 PM LOCKSTITCH BINDER) WBC 11.8(H) 3.8 - 9.9 K/cumm Comment:Testing performed by : [facility], [address] [place], [place] [phone] Hgb 11.4(L) 13.0 - 17.5 g/dL CERNER BJ Comment:Testing performed by : [facility], [address] [place], [place] [phone] Hct 35.6(L) 38.9 - 50.3 % CERNER BJ Comment:Testing performed by : [facility], [address] [place], [place] [phone] Plt 275 150 - 400 K/cumm CERNER BJ Comment:Testing performed by : [facility], [address] [place], [place] [phone] MPV 6.8 6.8 - 10.4 fL CERNER BJ Comment:Testing performed by : [facility], [address] [place], [place] [phone] RBC 4.04(L) 4.30 - 5.80 M/cumm CERNER BJ Comment:Testing performed by : [facility], [address] [place], [place] [phone] MCV 88.1 81.3 - 96.4 fL CERNER BJ Comment:Testing performed by : [facility], [address] [place], [place] [phone] MCH 28.3 27.1 - 33.3 pg CERNER BJ Comment:Testing performed by : [facility], [address] [place] [address] MCHC 32.1(L) 32.3 - 35.7 g/dL CERNER BJ Comment:Testing performed by : [facility], [address] [place] [address] RDW CV 15.9(H) 11.1 - 14.9 % CERNER BJ Comment:Testing performed by : [facility], [address] [place] [address] NRBC abs 0.00 0.00 - 0.01 K/cumm CERNER BJ Comment:Testing performed by : [facility], [address] [place], [place] [id number] Blood 07/30/2024 1:28 PM LOCKSTITCH BINDER 07/30/2024 1:30 PM L[employer]STITCH BINDER Travon Stevens MD LAB BLOOD ORDERABLES Edit ed Result - Final SARAH PERALTA [facility] Department [place] [address] * (ABNORMAL) Manual Differential (07/30/2024 1:28 PM LOCKSTITCH BINDER) Cells Counted 200 Comment:Testing performed by : [facility], [address] [place] [phone] Neutrophil abs 10.7(H) 1.5 - 6.5 K/cumm SARAH PERALTA Comment:Testing performed by : [facility], [address] [place] [phone] Lymphocyte abs 0.4(L) 0.8 - 3.3 K/cumm CERMAGDA PERALTA Comment:Testing performed by : [facility], [address] [place] [phone] Monocyte abs 0.4 0.2 - 0.8 K/cumm SARAH PERALTA Comment:Testing performed by : [facility], [address] [place], [place] [phone] Eosinophil abs 0.1 0.0 - 0.5 K/cumm SARAH PERALTA Comment:Testing performed by : [facility], [address] [place] [phone] Basophil abs 0.0 0.0 - 0.1 K/cumm SARAH BJ Comment:Testing performed by : [facility], [address] [place], [place] [phone] Neutrophil pct 91.0 % CERMAGDA PERALTA Comment: Interpretive Data Percent cell count reference ranges are not reported, since discordance with absolute values may lead to misinterpretation of CBC data. Current Interpretive Data was last revised on 2017. Testing performed by: [facility], [address] [place] [phone] Lymphocyte pct 3.0 % CERNER [facility] Comment: Interpretive Data Percent cell count reference ranges are not reported, since discordance with absolute values may lead to misinterpretation of CBC data. Current Interpretive Data was last revised on 2017. Testing performed by: [facility], [address] [place] [phone] Monocyte pct 3.0 % CERNER [facility] Comment: Interpretive Data Percent cell count reference ranges are not reported, since discordance with absolute values may lead to misinterpretation of CBC data. Current Interpretive Data was last revised on 2017. Testing performed by: [facility], [address] [place] [phone] Eosinophil pct 1.0 % CERNER [facility] Comment: Interpretive Data Percent cell count reference ranges are not reported, since discordance with absolute values may lead to misinterpretation of CBC data. Current Interpretive Data was last revised on 2017. Testing performed by: [facility], [address] [place] [phone] Basophil pct 0.0 % CERNER [facility] Comment: Interpretive Data Percent cell count reference ranges are not reported, since discordance with absolute values may lead to misinterpretation of CBC data. Current Interpretive Data was last revised on 2017. Testing performed by: [facility], [address] [place] [phone] Metamyelocyte pct 1.0 % CERNER [facility] Comment:Testing performed by : [facility], [address] [place] [phone] Myelocyte pct 1.0 % C[facility]ER [facility] Comment:Testing performed by : [facility], [address] [place] [phone] Promyelocyte pct 1.0 % CERNER [facility] Comment:Testing performed by : [facility], [address] [place] [phone] Variant lymph pct 1.0 % CERNER [facility] Comment:Testing performed by : [facility], [address] [place] [phone] Polychromasia 1+(A) [facility] Comment:Testing performed by : [facility], [address] [place], [place] [phone] Anisocytosis 1+(A) [facility] Comment:Testing performed by : [facility], [address] [place], [place] [phone] Poikilocytosis 1+(A) [facility] Comment:Testing performed by : [facility], [address] [place], [place] [phone] Microcytes 1+(A) [facility] Comment:Testing performed by : [facility], [address] [place] [phone] Elliptocytes 1+(A) [facility] Comment:Testing performed by : [facility], [address] [place], [place] [phone] Teardrop cells 1+(A) [facility] Comment:Testing performed by : [facility], [address] [place], [place] [phone] Platelet estimate Adequate [facility] Comment:Testing performed by : [facility], [address] [place], [place] [id number] Giant platelets Present(A) [facility] Comment:Testing performed by : [facility], [address] [place], [place] [phone] Blood 07/30/2024 1:28 PM LOCKSTITCH BINDER 07/30/2024 1:30 PM LOCKSTITCH BINDER us Travon Stevens MD LAB BLOOD ORDERABLES Olag l Result [facility] Department [place] [address] * (ABNORMAL) T-helper cells (CD4) count (07/30/2024 1:28 PM LOCKSTITCH BINDER) CD4 pct 45 31 - 64 % CD4 Absolute 221(L) 365 - 1,294 cells/mcL [facility] Blood 07/30/2024 1:28 PM LOCKSTITCH BINDER 07/30/2024 5:14 PM LOCKSTITCH BINDER Travon Stevens MD LAB BLOOD ORDERABLES Olga michele Result [facility] Department [place] [address] * (ABNORMAL) Comprehensive metabolic panel (07/30/2024 1:28 PM LOCKSTITCH BINDER) Sodium 143 135 - 145 mmol/L Potassium, pl 4.1 3.3 - 4.9 mmol/L [facility] Chloride 104 97 - 110 mmol/L [facility] CO2 32 22 - 32 mmol/L [facility] Anion gap 7 2 - 15 mmol/L [facility] BUN 38(H) 6 - 25 mg/dL [facility] Creatinine 1.54(H) 0.80 - 1.30 mg/dL [facility] Glucose 161 70 - 199 mg/dL [facility] Comment: Interpretive Data Fasting glucose >/= [...] classification and Diagnosis of Diabetes Diabetes Care 202; 46: S19-S40. Current interpretive data was last revised 2022. Calcium 9.0 8.5 - 10.3 mg/dL [facility] Bilirubin, total 0.2 0.1 - 1.2 mg/dL [facility] Protein, pl 6.8 6.5 - 8.5 g/dL [facility] Albumin 3.5 3.5 - 5.0 g/dL [facility] Alk phos 79 40 - 130 Units/L [facility] ALT 27 7 - 55 Units/L [facility] AST 25 10 - 50 Units/L [facility] Blood 07/30/2024 1:28 PM LOCKSTITCH BINDER 07/30/2024 1:31 PM LOCKSTITCH BINDER us Travon Stevens MD LAB BLOOD ORDERABLES Olga l Result [facility] Department [place] [address] * (ABNORMAL) Hemoglobin A1c (09/18/2022 6:31 AM CDT) Hgb A1C 8.3(H) 4.0 - 5.6 % [facility] Estimated Average Glucose 192 mg/dL [facility] Comment: The ADA recommends reporting an estimated Average Glucose (eAG) with all Hemoglobin A1c results using the equation derived from a study of 507 normal and diabetic adults. Minority populations were underrepresented and children were not included. (Diabetes Care 31:3636-5458, 2007). The eAG is not equivalent to a fasting glucose. Blood 09/18/2022 6:31 AM CDT 09/18/2022 6:58 AM CDT us Enrique Castro MD LAB BLOOD ORDERABLES Final Re sult Performing Organization Address City/[facility] Co de Phone Number [facility] [address] [place] [address] Department [place] [address] * (ABNORMAL) Lipid panel (08/24/2021 2:54 AM LOCKSTITCH BINDER) Cholesterol 166 30 - 199 mg/dL SARAH [...] revised on 2018. HDL 32(L) >=40 mg/dL [facility] Comment: Interpretive Data Ages < [...] ratio 5 [facility] Blood 08/24/2021 2:54 AM LOCKSTITCH BINDER 08/24/2021 3:09 AM LOCKSTITCH BINDER Monik Jimenez MD LAB BLOOD ORDERABLES Final Result Performing Organization Address City/[facility]/ZIP Co de Phone Number SARAH [address] [facility] Department [place] [address] * Diabetic Eye Exam (02/22/2021) 02/22/2021 Historical Provider HEALTH MAINTENANCE Final Result * PSA screen (07/23/2020 11:01 AM LOCKSTITCH BINDER) [facility] PSA 0.5 0.0 - 4.0 ng/mL [facility] - Comment: Juli ECLIA methodology. According to the [place] [employer], Serum PSA should decrease and [...] disease. Blood specimen (specimen) 07/23/2020 11:01 AM LOCKSTITCH BINDER 07/23/2020 Narrative [facility] - 07/25/2020 7:35 AM LOCKSTITCH BINDER Performed at: [facility] [id number] Community Pharmacist: Marlon Knowles PhD, Phone: [phone] Lan Doss MD LAB BLOOD ORDERABLES Final Re sult Performing Organization Address City/[facility]/ZIP Co de Phone Number [facility] - 01 * Colonoscopy (08/23/2014) Anatomical Region Laterality Modality Other us Historical Provider MD ENDOSCOPY PROCEDURES Olga l Result from Last 3 Months or Most Recently Relevant to Health Maintenance Insurance MEDICARE [facility] MEDICARE [facility] MEDICARE SUPPLEMENT MEDICARE [facility] MEDICARE SUPPLEMENT Advance Directives For more information, please contact: [phone] Documents on File Type Date Recorded Patient Audiology Technician Expl anation ADVANCE DIRECTIVE 02/19/2022 11:51 AM ADVANCE DIRECTIVE 01/25/2021 ADVANCE DIRECTIVE 07/02/2018 4:48 PM POWER OF BALLISTICS TEACHER/ LAST WILL AND TESTAME * Full Code [...] Spouse Health Care Agent [email or web address] Care Teams 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
[2024-10-09 07:52] LABS: Estimated Glomerular Filt Rate 43
== END 2024-10-09 07:16 | disposition home or self-care (01) ==
PROVIDERS: PCP Family Medicine; Visit Provider Family Medicine
DX: M86.9 Osteomyelitis, unspecified (principal)
CPT/HCPCS: 73701; Q9967

== ENCOUNTER 2024-10-17 13:40 | Inpatient (IN) | payer MEDICARE, SELFPAY ==
[2024-10-17] VITALS (17 sets, daily range): BP systolic 125–189; BP diastolic 72–104; PULSE 73–96; RESP 11–18; TEMP 36.5–36.6; O2SAT 93–99; BMI 38.2
--- NOTE | ~2024-10-17 | CT_ITS ---
CTA brain carotid Ordering provider: Anay Rod PA-C History: . R facial droop, hx previous cvas . Comparison: None. Technique: CT angiogram head and neck was performed following timed intravenous injection of contrast . Thin slice axial images and reformatted coronal images were obtained. Three dimensional reformatted images of the brain were also obtained using a [employer] workstation. Radiation reduction technique ut ilized.The dose-length product was 1172.91 mGy-cm. 100 mL Omnipaque 350 was given IV. FINDINGS: HEAD: --ANTERIOR AND MIDDLE CEREBRAL ARTERIES AND BRANCHES: Normal caliber and contour. --INTERNAL CAROTID ARTERIES: Mild atheromatous disease but no significant stenosis. No occlusion. --BASILAR ARTERY AND BRANCHES: The basilar artery is formed by the left vertebral artery. The right v ertebral artery ends in the PICA. Otherwise, the Normal caliber and contour. No atheromatous disease. --POSTERIOR CEREBRAL ARTERIES: Normal caliber and contour --POSTERIOR COMMUNICATING ARTERIES: Not visualized which is probably related to congenital absence or small size. --ANEURYSM: None visualized. --BRAIN: Please refer to report of CT head performed the same day. --BONES AND SUPERFICIAL SOFT TISSUES: Please refer to report of CT head performed the same day. --PARANASAL SINUSES AND MASTOIDS: Please refer to report of CT head done the same day. NECK: Retropharyngeal position of both internal carotid arteries is seen. --RIGHT CERVICAL CAROTID SYSTEM: Mild atheromatous disease of the carotid bulb and proximal internal carotid artery without significant stenosis. Percent stenosis per NASCET criteria is 0%. No carotid dissection. Otherwise, no significant atheromatous disease or stenosis of the cervical carotid system . --LEFT CERVICAL CAROTID SYSTEM: Mild atheromatous disease of the carotid bulb and proximal internal c arotid artery without significant stenosis. Percent stenosis per NASCET criteria is 0%. No carotid d issection. Otherwise, no significant atheromatous disease or stenosis of the cervical carotid system. --VERTEBRAL ARTERIES: Small caliber right vertebral artery. Normal caliber and contour. --VISUALIZED AORTIC ARCH AND BRANCHING VESSELS: Normal caliber and contour. No significant atheromato us disease. Groundglass appearance seen in both lungs which may be atelectatic. --SOFT TISSUES: Normal. --CERVICAL SPINE: Age appropriate degenerative changes. IMPRESSION: 1. Normal CTA head and neck. Percent stenosis per NASCET criteria is 0%. 2. Small caliber of the right vertebral artery. Reviewed, dictated and finalized at location A.
--- NOTE | ~2024-10-17 | MR_ITS ---
EXAMINATION: MR brain/brain stem wo/w con DATE: 10/19/2024 08:48 INDICATION: Stroke with worsening right-sided facial droop TECHNIQUE: Magnetic resonance imaging (MRI) of the brain and brainstem was performed without and with 15 mL ProHance intravenous contrast. Sequences included sagittal and axial T1-weighted SE, axial dif fusion-weighted FS SE, axial T2*-weighted GRE, axial T2-weighted FLAIR, and axial T2-weighted FSE. Po stcontrast axial and coronal T1-weighted SE was obtained. Apparent diffusion coefficient (ADC) maps w ere created. COMPARISON: Head CT and CT angiogram dated 10/17/2024 and PET/CT dated 10/26/2023 FINDINGS: There is diffuse increased T2 signal throughout a large region of chronic encephalomalacia involving the portions of the left parietal, posterior left frontal, left occipital and left temporal lobes and portions of the left thalamus. There is secondary ex vacuo dilation of the trigone region of the lef t lateral ventricle. There are changes of a prior overlying left parietal craniotomy. There are scatt ered punctate, curvilinear and globular regions of low signal intensity within this region of encepha lomalacia most prominent on the T2*weighted images corresponding location and configuration to chroni c calcifications. There is a thin serpiginous pattern of enhancement at the periphery of the region o f encephalomalacia. There is a small region of suspected restricted diffusion in the deep aspect of t his region of encephalomalacia along the posterior left caudate nucleus which could represent an acut e infarct. No intracranial hemorrhage or abnormal intracranial mass lesion. There are a few addition al scattered small foci of increased T2-weighted signal intensity in the cerebral white matter which is within normal limits for age and likely sequela of chronic small vessel ischemic disease. Vascular normal aside from the previously noted ex vacuo dilation of portions of the left lateral ventricle. Symmetric prominence of the sulci consistent with mild age-appropriate diffuse cerebral volume loss. There are no abnormal extra-axial fluid collections. Flow voids are seen in the cerebral arteries on the T2-weighted sequences consistent with their expected patency. Left vertebral artery is dominant. Mild mucosal thickening the bilateral ethmoid sinuses. Visualized orbits and soft tissues are unremar kable. IMPRESSION: 1. Small region of restricted diffusion along the posterior left caudate nucleus consistent with acut e infarct at the periphery of a large region of encephalomalacia involving the left parietal, tempora l and posterior frontal lobes and also involving portions of the left thalamus and insula which could represent either sequela of old infarct, prior surgery rather treatment for reported glioblastoma. 2. Diffuse serpiginous pattern of enhancement along the margins of the region of encephalomalacia whi ch raises concern for residual disease although differential would include sequela of prior infarct o r surgery. Evaluation is limited in the absence of prior postcontrast imaging to assess for evolution which would favor malignancy. Reviewed, dictated and finalized at location A. IMPRESSION: 1. Small region of restricted diffusion along the posterior left caudate nucleu s consistent with acute infarct at the periphery of a large region of encephalo malacia involving the left parietal, temporal and posterior frontal lobes and a lso involving portions of the left thalamus and insula which could represent ei ther sequela of old infarct, prior surgery rather treatment for reported gliobl astoma. 2. Diffuse serpiginous pattern of enhancement along the margins of the region o f encephalomalacia which raises concern for residual disease although different ial would include sequela of prior infarct or surgery. Evaluation is limited in the absence of prior postcontrast imaging to assess for evolution which would favor malignancy.
--- NOTE | ~2024-10-17 | XR_ITS ---
XR chest 1V portable Ordering provider: Meir Carbajal MD History: 64 years Male with . Worsening facial droop . Comparison: October 26, 2023 FINDINGS: MEDIASTINUM: The cardiac silhouette is not enlarged. Congestive piedad. LUNGS: No infiltrates, effusions or pneumothorax. OTHER: No free air under the diaphragm. Degenerative changes of the spine. IMPRESSION: No acute cardiopulmonary pathology. Reviewed, dictated and finalized at location A.
--- NOTE | ~2024-10-17 | CT_ITS ---
CT brain wo con Ordering provider: Meir Carbajal MD History: 64 years Male with . Worsening right sided droop, past hx CVA . Comparison: June 29, 2024 Technique: CT of the head without contrast. Radiation reduction technique utilized.The dose-length pr oduct was 605.33 mGy-cm. FINDINGS: BRAIN PARENCHYMA AND CSF SPACES: Mild leukoaraiosis and diffuse cortical atrophy. Mild atheromatous d isease. Calcification and postoperative changes in the left parietal area unchanged from previous exa mination. Slight widening of the CSF space in the right frontal parietal area. Old infarct in the lef t external capsule unchanged. No midline shift, mass effect or hemorrhage. The brain parenchyma and CSF spaces are otherwise normal. VISUALIZED PARANASAL SINUSES: Well aerated. MASTOIDS: Well aerated. BONES: Postoperative changes in the left parietal bone. Otherwise, The bones appear intact. SOFT TISSUES: Visualized nasopharynx is normal. Superficial soft tissues are normal. IMPRESSION: No acute intracranial findings. No change from previous examination. Reviewed, dictated and finalized at location A.
[2024-10-17 13:53] LABS: Glucose Point of Care 153 mg/dl (65-105)
--- NOTE | 2024-10-17 13:55 | ECG_ITS ---
Test Date: 2024-10-17 14:03:17 Measurements Intervals Alpha Rate: 76 P: 75 OR: 191 QRS: -2 QRSD: 105 T: 34 QT: 389 QTc: 439 Interpretive Statements SINUS RHYTHM WITH OCCASIONAL SUPRAVENTRICULAR PREMATURE COMPLEXES VOLTAGE CRITERIA FOR LVH BASELINE ARTIFACT- I, III, V2 BORDERLINE ECG Compared to ECG 12/27/2023 23:35:14 NO SIGNIFICANT CHANGE Electronically Signed On 10-17-2024 14:24:44 CDT by Sid Tabor D.O.
--- OUTSIDE RECORDS SUMMARY | 2024-10-17 14:07 | XMS_ITS | Encounter Summary ---
Author Organization [facility] Address [address] [place] [address] Phone Care Team Providers Care Compliance Field Technician Name Role Phone Lan Doss MD Primary Care Provider [phone] Lan Doss MD Unavailable [phone] Travon Stevens MD Unavailable [phone] Deshawn Penaloza MD Unavailable [phone] Encounter Details Date Type Department Care Team [...] often do you attend chur ch or presybeterian services? Never 09/18/2022 Do you belong to any clubs o r organizations such as taoism groups, unions, fraternal or athletic groups, or [...] place to sleep or slept in a long term (including now)? No 09/18/2022 Personal Safety Answer Date Recorded Have you ever been in or are you currently in a harmful physical or emotional relationship or is someone making you feel afraid or unsafe? 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
--- OUTSIDE RECORDS SUMMARY | 2024-10-17 14:07 | XMS_ITS | Encounter Summary ---
Author Organization [facility] Healthcare Address [address] [place] [address] Care Team Providers Care Cad Librarian Name Role Phone Ross Doss MD Primary Care Provider [phone] Ross Doss MD Unavailable [phone] Travon Stevens MD Unavailable Deshawn Penaloza MD Unavailable [phone] Jen Ramos LPN Unavailable [phone] Reason for Referral * Consultation (Routine) - Closed Specialty Diagnoses / Procedures Referred By Contac t Referred To Contact Physical Therapy Diagnoses Gait disturbance Ross Doss MD Phone: tel: fax: Ross Doss MD [facility] [address] [address] Phone: tel: fax: Referral ID Status Reason Start Date Expiration Date V isits Requested Visits Authorized [id number] Closed Specialty Services Required 01/12/2022 02/11/2023 1 1 Question Answer PTRFR PT Evaluate and Treat Therapy options discussed with patient? Yes Location provided for therapy services is: Patient requested/Patient preferred Please select the performing region: [facility] [[id number]] Please select the performing department: [facility] OP PT [[id number]] To provider: ROSS DOSS [[id number]] # of visits: 1 Comments Patient requires AFO for R LE. Encounter Details Date Type Department Care Team (Late st Contact Info) Description 01/12/[address] 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 Gender Identity Not on file Sexual Orientation Straight 08/31/2021 4: 21 PM HELPER DRIVER Occupation Industry Job Start Date Job End [...] gait documented in this encounter Care Teams Cad Librarian Relationship Specialty Start Date End Date Ross Doss MD PCP - General Family Medicine 08/23/21 Ross Doss MD 08/23/21 Travon Stevens MD Medical Oncologist/Veterinary Practitioner Medical Oncology 11/11/18 Deshawn Penaloza MD Surgeon Neurosurgery 01/23/19 Jen Ramos, ZANE [address] [place] [address] [place] [address] Social Work Lecturer 09/06/22 09/16/22 documented as of this encounter
--- OUTSIDE RECORDS SUMMARY | 2024-10-17 14:07 | XMS_ITS | Encounter Summary ---
Author Organization [facility] [place] [address] [place] [address] Care Team Providers Care Family Readiness Support Assistant Name Role Phone Unavailable Primary Care Provider Unavailabl e Prior Encounters Date Type Department Care Team Description 03/07/2021 Travel 03/07/2021 1:00 PM CDT Office Visit [facility] [address] [place] [phone] Cheryle Holt, ELSA 03/07/2021 1:00 PM CDT Office Visit [facility] [address] [place] [phone] Ivana Maradiaga RDH 07/20/2019 Converted CPS Chart Documents [facility] [address] [place] [phone] <No scans attached> 07/20/2019 Converted 13x Documents [facility] [address] [place] [phone] <No scans attached> Last Filed Vital Signs [...] - ESTABLISHED PATIENT Routine 08/23/2020 2:00 AM MANGLE FEEDER ORAL HYGIENE INSTRUCTIONS Routine 2020 2:00 AM MANGLE FEEDER TOPICAL APPLICATION OF FLUORIDE VARNISH Routine 08/23/2020 2:00 AM MANGLE FEEDER PROPHYLAXIS - ADULT Routine 08/23/2020 2 :00 AM MANGLE FEEDER BITEWINGS - FOUR RADIOGRAPHIC IMAGES Routine 02/18/2020 [...] 18 ENDODONTIC THERAPY, MOLAR TOOTH (EXCLUDING FINAL MORMON) Routine 02/17/2020 2:00 AM CDT 25 ENDODONTIC THERAPY, ANTERIOR TOOTH (EXCLUDING FINAL MORMON) Routine 02/17/2020 2:00 AM CDT 3 CROWN [...]
--- OUTSIDE RECORDS SUMMARY | 2024-10-17 14:07 | XMS_ITS | Referral Summary ---
Author Organization [facility] Address [address] [place] [address] Care Team Providers Care Passenger Car Upholsterer Apprentice Name Role Phone Lan Doss MD Primary Care Provider Lan Doss MD Unavailable [phone] Travon Stevens MD Unavailable Deshawn Penaloza MD Unavailable Encounters Date Type Department Care Team Description 09/24/2024 11:45 AM CDT Lab [facility] - Lab Collection [facility] Floor 5 [place] [address] Glioblastoma (HCC) 09/24/2024 12:40 PM CDT Office Visit [facility] Oncology [facility] Floor 1, [address] [place] [address] Travon Stevens MD Glioblastoma (HCC) (Primary Dx) 09/24/2024 11:30 AM CDT Lab [facility] Oncology Lab [address] [facility] Floor 5 [place] [address] Glioblastoma (HCC) 09/22/2024 Orders Only [facility] Oncology [facility] Floor 5 [place] [address] Travon Stevens MD 08/27/2024 Orders Only [facility] Oncology [facility] Floor 1, [address] [place] [address] Emory Alcazar RN Glioblastoma (HCC) (Primary Dx); Localized edema 08/27/2024 Orders Only [facility] Neurosurgery [address] [facility] Floor 1, [address] [place] [address] Travon Stevens MD 08/27/2024 12:15 PM FLORIST DESIGNER Lab [facility] - Lab Collection [address] Floor 5 [place] [address] Glioblastoma (HCC) 08/27/2024 1:00 PM FLORIST DESIGNER Office Visit [facility] Oncology [facility] Floor 1, [address] [place] [address] Travon Stevens MD Glioblastoma (HCC) (Primary Dx) 08/27/2024 12:00 PM FLORIST DESIGNER Lab [facility] Oncology Lab [facility] Floor 5 [place] [address] Glioblastoma (HCC) 08/25/2024 1:16 PM FLORIST DESIGNER - 08/25/2024 11:59 PM [facility] [address] [place] [address] Travon Stevens MD Glioblastoma (HCC) Discharge Disposition: Discharge to home or self care 07/31/2024 Orders Only [facility] Oncology [facility] Floor 1, [address] [place] [address] Travon Stevens MD 07/30/2024 1:30 PM FLORIST DESIGNER Lab [facility] - Lab Collection [facility] Floor 5 [place] [address] Glioblastoma (HCC) 07/30/2024 2:20 PM FLORIST DESIGNER Office Visit [facility] Oncology [facility] Floor 1, [address] [place] [address] Travon Stevens MD Glioblastoma (HCC) (Primary Dx); Flaccid hemiplegia affecting right dominant side, unspecified etiology (HCC); Seizure disorder (HCC); Type 2 diabetes mellitus with stage 3b chronic kidney disease, with long-term current use of insulin (HCC); Morbid (severe) obesity due to excess calories (HCC) 07/30/2024 1:15 PM FLORIST DESIGNER Lab [facility] Oncology Lab [address] [facility] Floor 5 [place] [address] Glioblastoma (HCC) from Last 3 Months Allergies No known [...] ondansetron (ZOFRAN) 8 mg tabletIndicati ons:Glioblasto ma (HCC) Take 1 tablet (8 mg total) by mouth every 8 (eight) hours as needed for nausea or vomiting Take 30 minutes prior to oral chemotherapy then every 8 hours as needed up to 3 doses in 24 hours if prochlorperazine does not stop nausea. 24 tablet 3 05/20/20 24 Active prochlorperazi ne (Compazine) 10 mg tabletIndicati ons:Glioblasto ma (HCC) Take 1 tablet (10 mg total) by mouth every 6 (six) hours as needed for nausea or vomiting Use first for nausea 120 tablet 3 05/20/20 24 Active amLODIPine (NORVASC) 10 mg tablet Take 1 tablet (10 mg total) by mouth daily Active gabapentin (NEURONTIN) 300 mg capsuleIndicat ions:Glioblast ulysses (HCC) Take 1 capsule (300 mg total) by mouth 3 (three) times a day 90 capsule 11 08/27/19 25 Active temozolomide (TEMODAR) 250 mg capsuleIndicat ions:Glioblast ulysses (HCC) Take 2 capsules (500 mg) by mouth daily for 5 days. Take on days 1-5 every 28 days. 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 Baseline weakness due to affects of GBM, continue supportive care, notify provider for change in condition. Localized swelling on right hand 07/28/2022 Assessment & Plan (07/28/2022 8:16 PM FLORIST DESIGNER): Increase in edema to R hand, presume positional and is edematous at baseline. compression wrap applied by me on exam, assisted to reposition RUE sling, continue to elevate while resting, PT/OT as tolerated, no concern for cellulitis or clot, compartment is soft Functional diarrhea 06/27/2022 Assessment & Plan (06/27/2022 10:18 AM FLORIST DESIGNER): HARPER marshall, notify provider for acute abdominal pain, bloody stools or fever Leg edema, right 06/11/2022 Assessment & Plan (06/11/2022 5:06 AM FLORIST DESIGNER): No DVT. Start patient on Bactrim. Continue Lasix 40 mg for now continue 1 tab, as patient creatinine 1.6. Monitor symptoms, labs Primary insomnia 05/29/2022 Assessment & Plan (05/29/2022 11:01 AM FLORIST DESIGNER): Try melatonin 10 mg nightly. Polyneuropathy associated with underlying diseas e 05/02/2022 Assessment & Plan (05/22/2022 9:21 AM FLORIST DESIGNER): Continue Cymbalta 30 mg, Neurontin 300 mg b.i.d.. Assessment & Plan (05/02/2022 6:22 AM CDT): Continue Cymbalta 30 mg, Neurontin 300 mg b.i.d. Lumbar degenerative disc disease 02/23/2022 Speech and language deficits 11/01/2021 Assessment & Plan (08/24/2022 12:46 PM FLORIST DESIGNER): Improving with ST Getting ready to transition to assisted living Apraxia of speech 11/01/2021 Assessment & Plan (05/22/2022 9:20 AM FLORIST DESIGNER): Patient need to get FEES. Has been ordered from [facility]. Need to confirm with family Assessment & Plan (05/18/2022 10:26 AM FLORIST DESIGNER): FEES ordered at [facility] but unable to obtain. Recommend Outpt ST eval & treat with FEEs. Have placed ordered for d/c. Family will need to transport. Assessment & Plan (05/14/2022 11:40 AM FLORIST DESIGNER): Waiting on FEEs to be scheduled. Assessment & Plan (05/11/2022 11:52 AM FLORIST DESIGNER): Concerns with vocal cord atrophy to R side. Have ordered FEES to assess. 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 Decadron, seizure prophylaxis, denies headache or change in symptoms, does well with therapy and participates in care, continue supportive measures, follow-up with Neuro- Oncology Assessment & Plan (07/28/2022 8:17 PM FLORIST DESIGNER): remains with R sided weakness and expressive aphasia, able to self propel WC and participate in care, cont PT/OT, decadron daily. Sz prophylaxis, nsgy f/u Assessment & Plan (07/24/2022 11:21 AM FLORIST DESIGNER): Pt of Dr. Gomez at [facility] - s/p 06/30/2018, gross total resection of left parietal tumor. Surgeon Dr. Penaloza. Pathology: - GBM, MGMT promoter methylated, EGFR amplified, monosomic loss of PTEN. Continue seizure prophylaxis, decadron, BP management, repeat BMP to monitor sodium, pain control denies CARPENTER PT OT PHLEBOTOMY SERVICES TECHNICIAN following Assessment & Plan (06/11/2022 5:08 AM FLORIST DESIGNER): Continue dexamethasone 8 mg a.m. and 4 mg p.m., Trileptal, Keppra. Patient had appointment with Dr. Hernandez on 06/07, now started on Bactrim every other day. Brain MRI scheduled for 06/17/2022. Next follow-up with Dr. Hernandez on 06/21/2022 Assessment & Plan (05/22/2022 9:12 AM FLORIST DESIGNER): Pt is s/p 06/30/2018, gross total resection of left parietal tumor, per surgeon Dr. Penaloza. Completed radiation therapy, on Avastin + Optune device since October 2018, w/C5 on 04/05/22. Follow up with Dr. Stevens in [facility]. Now rec dexamethasone 8 mg in AM and 4 mg in PM. To continue antiseizure medication, aggressively treat hypertension Assessment & Plan (05/18/2022 10:26 AM FLORIST DESIGNER): Continue antiseizure meds & Dexamethasone. Outpt Onc f/u. Assessment & Plan (05/02/2022 6:23 AM CDT): Pt is s/p 06/30/2018, gross total resection of left parietal tumor, per surgeon Dr. Penaloza. Completed radiation therapy, on Avastin + Optune device since October 2018, w/C5 on 04/05/22. Follow up with Dr. Stevens in [facility]. Now rec dexamethasone 8 mg in AM and 4 mg in PM. To continue antiseizure medication, aggressively treat hypertension Stage 3a chronic kidney disease 08/23/2021 Assessment & Plan (06/11/2022 5:09 AM FLORIST DESIGNER): Creatinine improved from 1.7 to 1.6. Will repeat renal function on 06/19, as patient going to start Bactrim Assessment & Plan (05/29/2022 11:05 AM FLORIST DESIGNER): Creatinine 1.7. Repeat labs on 06/04 Assessment & Plan (05/22/2022 9:18 AM FLORIST DESIGNER): Creatinine stable at 1.4. Avoid nephrotoxic drugs, monitor renal function. Assessment & Plan (05/14/2022 11:40 AM FLORIST DESIGNER): Cr stable. Assessment & Plan (05/07/2022 12:16 PM FLORIST DESIGNER): Improved. At baseline. Continue to montior. Assessment & Plan (05/04/2022 11:20 AM CDT): At baseline. See above. Assessment & Plan (05/02/2022 6:22 AM CDT): Creatinine 1.6-1.8. Avoid nephrotoxic drugs. Monitor renal function Essential (primary) hypertension 08/23/2021 Assessment & Plan (08/06/2022 10:33 AM FLORIST DESIGNER): BP logs reviewed and stable, continue daily clonidine and Norvasc for BP goal less than 150 over less than 90 Assessment & Plan (05/22/2022 9:13 AM FLORIST DESIGNER): BP fluctuates. Cont clonidine 0.05mg bid, HCTZ 25 mg and amlodipine 10 mg. We will add hydralazine 25 mg t.i.d. with parameters if remains elevated. Monitor blood pressure, adjust meds accordingly Assessment & Plan (05/18/2022 10:27 AM FLORIST DESIGNER): BP stable with fluctuation. Continue to monitor. May need to increase Clonidine if remains elevated outpt. Assessment & Plan (05/14/2022 11:37 AM FLORIST DESIGNER): BP continues to remain elevated. Hydralazine increased Saturday. Monitor. Assessment & Plan (05/11/2022 12:01 PM FLORIST DESIGNER): BP remains high. Increase Hydralazine. Assessment & Plan (05/07/2022 12:12 PM FLORIST DESIGNER): BP elevated still, increase Hydralazine. Monitor. Assessment & Plan (05/04/2022 11:16 AM CDT): Hydralazine just added. Continue to monitor, increase next week if remains elevated. Assessment & Plan (05/03/2022 4:26 AM CDT): BP fluctuates. Cont clonidine 0.05mg bid, HCTZ 25 mg and amlodipine 10 mg. We will add hydralazine 25 mg t.i.d. with parameters. Monitor blood pressure, adjust meds accordingly Glioblastoma multiforme ([facility]/HCC) 11/11/2018 Assessment & Plan (07/09/2022 12:17 PM FLORIST DESIGNER): Follows with Neurosurgery, Medical Oncology, continue PT/OT, remains with expressive aphasia and left-sided weakness able to participate in care and assist with ADLs, feed self Continue seizure prophylaxis, daily Decadron Left parietal glioblastoma multiforme, MGMT promoter methylated, EGFR amplified, monosomy of PTEN Dx 05/2018 s/p resection, proton therapy, temodar. Follows with Dr Stevens Assessment & Plan (06/27/2022 10:17 AM FLORIST DESIGNER): Continue b.i.d. Decadron with prophylactic Bactrim and [...] Dr Stevens -currently on Optune, HOLD while inpateint -bMRI 03/13 was largely stable, repeat bMRI planned for 05/2021 -med onc consult Assessment & Plan (11/11/2018 8:57 AM CDT): Seeing NUS, under current treatment, weight loss, fatigue, some nausea Seizure disorder (CMS/HCC) 11/11/2018 Assessment & Plan (05/29/2022 11:03 AM FLORIST DESIGNER): Keppra level elevated to 50, continue Keppra 2000 mg b.i.d., oxcarbazepine 300 mg b.i.d. request Neurology for any dose adjustment in Keppra Assessment & Plan (05/02/2022 6:14 AM CDT): Started in 2019 with R sided weakness and word finding difficulty. EEG now also showed left temporal region cortical irritability. To cont keppra 2000 mg bid, Oxcarbazepine 300 mg bid. seizure precautions. Follows up with neurosurgeon Dr. Leuthardt Assessment & Plan (03/21/2021 8:26 PM CDT): [...] HCT stable L-parietal changes and likely prominent [id number] subarachnoid space over SDH Neurology consulted:- Suspect [...] 07/09/2018 Assessment & Plan (08/24/2022 12:46 PM FLORIST DESIGNER): Per oncology GERD (gastroesophageal reflux disease) 8 [...] 10/17/2015 Assessment & Plan (08/24/2022 12:46 PM FLORIST DESIGNER): D/c Sliding scale insulin Continue metformin and 10units basal insulin with close glucose monitoring May adjust basal or add back set mealtime insulin if needed Assessment & Plan (08/06/2022 10:31 AM FLORIST DESIGNER): Glucose logs reviewed, improved with addition of a.m. Lantus, continue 20 units HS and 5 units in a.m. with mealtime SSI, metformin, weekly Trulicity. Accu-Cheks a.c. and HS, continues on long-term p.o. steroids Assessment & Plan (07/28/2022 8:18 PM FLORIST DESIGNER): Hyperglycemia with steroid dosing, cont BID lantus with mealtime ssi, accuechecks ac and hs Assessment & Plan (07/24/2022 11:31 AM FLORIST DESIGNER): Remains with intermittent hyperglycemia, Lantus increased to 20 units HS and 5 units in a.m. continue lispro with meals, weekly Trulicity Assessment & Plan (07/09/2022 12:18 PM FLORIST DESIGNER): Glucose logs reviewed and noted persistent hyperglycemia, continue Trulicity, will increase HS Lantus again, continue mealtime SSI with Accu-Cheks a.c. and HS Assessment & Plan (06/27/2022 10:19 AM FLORIST DESIGNER): Increase HS Lantus 18 units, 8 units lispro with meals, Accu-Cheks AC and HS Assessment & Plan (06/06/2022 2:23 PM FLORIST DESIGNER): BG in 304 0s. Will increase Lantus from 10 units to 14 units bedtime, lispro 6 units t.i.d. with meals, will resume home med Trulicity 1 5 mg every saturday of the week. Monitor Accu-Cheks Assessment & Plan (05/22/2022 9:17 AM FLORIST DESIGNER): A1c 7 on 08/24/2021. Continue Lantus 10 units nighttime, lispro 6 units t.i.d. with meal. Monitor Accu-Cheks. Assessment & Plan (05/18/2022 10:24 AM FLORIST DESIGNER): A1c 7 08/24/21. BS 106-250. Continues on Lantus 10u + Lispro 6u Assessment & Plan (05/14/2022 11:39 AM FLORIST DESIGNER): BS 98-283. Good control with current regimen. Continue to monitor. Assessment & Plan (05/11/2022 11:55 AM FLORIST DESIGNER): BS 100-319. Currently on Basaglar 32u + [...] Assessment & Plan (03/21/2021 7:09 PM CDT): nneka metformin and trulicity. Assessment & Plan (03/19/2021 2:43 PM CDT): A1c 5.7 (12/2020) HOLD home metformin 1000mg BID, Trulcity 0.75mg QW -KIRA ramirez-SSI Assessment & Plan (11/11/2018 9:07 AM CDT): DC trulicity conr Metformion for now Labs 3 mo A1C 6.2 Has lost weigh t with chemo treatment Normocytic normochromic anemia Assessment & Plan (06/06/2022 2:25 PM FLORIST DESIGNER): Hemoglobin has been significantly improved to 11.4. Continue to monitor Assessment & Plan (05/14/2022 11:40 AM FLORIST DESIGNER): H&H stable. Expressive aphasia Assessment & Plan (07/24/2022 11:32 AM FLORIST DESIGNER): Intermittent, improving, follows with PHLEBOTOMY SERVICES TECHNICIAN, swallow is appropriate, continue supportive care Assessment & Plan (07/17/2022 9:16 AM FLORIST DESIGNER): Making slow progress with his speech. Always tries to do more conversation and improve himself. Continue ST. Assessment & Plan (05/18/2022 10:27 AM FLORIST DESIGNER): Much improved. SEE ABOVE. Assessment & Plan (05/07/2022 12:16 PM FLORIST DESIGNER): Increased phlegm improved with flonase. Pt to continue work with PHLEBOTOMY SERVICES TECHNICIAN. Assessment & Plan (05/04/2022 11:21 AM CDT): Feels has increase phelgm causing voice change also. Denies coughing or ST. Will add on flonase to help with any inflammation. PHLEBOTOMY SERVICES TECHNICIAN working with patient. Morbid (severe) obesity due to excess calories Mixed hyperlipidemia Generalized weakness Assessment & Plan (05/14/2022 11:40 AM FLORIST DESIGNER): Continue PT/OT. Assessment & Plan (05/11/2022 11:52 AM FLORIST DESIGNER): Continue PT/OT. H/O craniotomy Resolved Problems Problem Noted Date Diagnosed Date Resolved Date Hyperkalemia 05/03/2022 05/14/2022 Assessment & Plan (05/07/2022 12:15 PM FLORIST DESIGNER): Improved. Continue to montior. Assessment & Plan (05/04/2022 11:19 AM CDT): 5.0. Unsure of cause? Trending down. Recheck labs Saturday. Stable on exam. Assessment & Plan (05/03/2022 4:23 AM CDT): Potassium 5.2. Will repeat BMP 05/03 Hypertensive urgency 04/20/2022 022 Right foot pain 12/21/2021 05/04/2022 Seizure disorder 08/23/2021 08/24/2022 Assessment & Plan (07/17/2022 9:21 AM FLORIST DESIGNER): Remains stable, no seizure activity noticed. Continue Keppra 2000 mg b.i.d., oxcarbazepine 300 mg b.i.d.. Follow up neurosurgeon outpatient Assessment & Plan (05/22/2022 9:12 AM FLORIST DESIGNER): Started in 2019 with R sided weakness and word finding difficulty. EEG now also showed left temporal region cortical irritability. To cont keppra 2000 mg bid, Oxcarbazepine 300 mg bid. seizure precautions. Follows up with neurosurgeon Dr. Penaloza Type 2 diabetes mellitus, [facility] long-term current use of insulin 08/23/2021 05/18/2022 [...] 07/02/201808/2018 Assessment & Plan (07/03/2018 12:03 PM FLORIST DESIGNER): Requires intensive QID monitoring to avoid hypo and hyperlgycemia Assessment & Plan (07/02/2018 5:02 PM FLORIST DESIGNER): Requires intensive QID monitoring to avoid hypo and hyperlgycemia Uncontrolled type 2 diabetes with neuropathy 9 10/30/2018 Assessment & Plan (07/04/2018 12:53 PM FLORIST DESIGNER): Overall control adequate per patient report, but [...] HDSSI Assessment & Plan (07/02/2018 5:07 PM FLORIST DESIGNER): Overall control adequate per patient report, but [...] 10/30/2018 Assessment & Plan (07/03/2018 12:02 PM FLORIST DESIGNER): Requirement for high dose steroids complicates glycemic [...] STOP Assessment & Plan (07/02/2018 5:01 PM FLORIST DESIGNER): Requirement for high dose steroids complicates glycemic [...] constipation Assessment & Plan (05/07/2022 12:15 PM FLORIST DESIGNER): Stable on current regimen. Assessment & Plan [...] 09/18/2022 How often do you attend chur or rastafarian services? Never 09/18/2022 Do you belong to any clubs o r organizations such as confucianism groups, unions, fraternal or athletic groups, or [...] you are drinking? Patient does not drink 3 Q3: How often do you have si [...] place to sleep or slept in a long-term (including now)? No 09/18/2022 Personal Safety Answer Date Recorded Have you ever been in or are you currently in a harmful physical or emotional relationship or is someone making you feel afraid or unsafe? Denies 09/18/2022 Sex and Gender Information Value Date Recorded Sex Assigned at Not on file Legal Sex Male 7:15 PM FLORIST DESIGNER Gender Identity Not on file Sexual Orientation Straight 08/31/2021 4: 21 PM FLORIST DESIGNER 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 Not on file Not on file Last Filed Vital Signs Vital Sign Reading Time Taken Comments Blood Pressure 131/80 08/27/2024 12:46 PM FLORIST DESIGNER Pulse 100 08/27/2024 12:46 PM FLORIST DESIGNER Temperature 36.8 C (98.2 F) 08/27/2024 12:46 PM FLORIST DESIGNER Respiratory Rate 17 08/27/2024 12:46 PM FLORIST DESIGNER Oxygen Saturation 100% 08/27/2024 12:46 PM FLORIST DESIGNER Inhaled Oxygen Concentration - - Weight 119.7 kg (264 lb) 08/27/2024 12:46 PM FLORIST DESIGNER Height 180.3 cm (5' 10.98 ) 08/27/2024 12:46 PM FLORIST DESIGNER Body Mass Index 36.84 08/27/2024 12:46 PM FLORIST DESIGNER Plan of Treatment Not on file Medical Devices Implanted Type Area Hooking Machine Operator Device Identifier Shelf Expiration Date Model / Serial / Lot [employer]Coma Tellpe Tiff [id number] Duragen Plus 7.5x7.5cm Patch Resorbable Suturable Cranial Dura Graft - [id number] Implanted:Qty: 1 on 06/30/2018 by Deshawn Penaloza MD at [facility] Aneurysm Coils Left: Brain [employer] 02/28/2021 [id number] / / [id number] Synthes 04.503.023 Matrixneuro 17mm .4mm Craniomaxillofacial Cover [place] - [id number] Implanted:Qty: 4 on 06/30/2018 by Deshawn Penaloza MD at [facility] Plate Left: Cranial Synthes I 04.503. 023 / / Synthes [id number] 1.6mm 2.9mm 4mm Self Drill Self Retain Low Profile Cruciform - [id number] Implanted:Qty: 23 on 06/30/2018 by Deshawn Penaloza MD at [facility] Screw Left: Cranial Synthes [...] Glioblastoma (HCC) EGFR Routine 08/27/2024 12:12 PM FLORIST DESIGNER Glioblastoma (HCC) DIFFERENTIAL AUTO Routine 08/27/2024 12: 12 PM FLORIST DESIGNER Glioblastoma (HCC) CBC WITH AUTO DIFFERENTIAL Routine 08/27/2024 12:12 PM FLORIST DESIGNER Glioblastoma (HCC) COMPREHENSIVE METABOLIC PANEL Routine 08/27/2024 12:12 PM FLORIST DESIGNER Glioblastoma (HCC) T-HELPER CELLS (CD4) COUNT Routine 08/27/2024 12:12 PM FLORIST DESIGNER Glioblastoma (HCC) MRI BRAIN W WO CONTRAST Schedule Routine, Read Routine (OP Routine) 08/25/2024 3:03 PM FLORIST DESIGNER Glioblastoma (HCC) EGFR Routine 07/30/2024 1:28 PM FLORIST DESIGNER Glioblastoma (HCC) MANUAL DIFFERENTIAL Routine 07/30/2024 1 :28 PM FLORIST DESIGNER Glioblastoma (HCC) DIFFERENTIAL AUTO Routine 07/30/2024 1:2 8 PM FLORIST DESIGNER Glioblastoma (HCC) CBC WITH AUTO DIFFERENTIAL Routine 07/30/2024 1:28 PM FLORIST DESIGNER Glioblastoma (HCC) COMPREHENSIVE METABOLIC PANEL Routine 07/30/2024 1:28 PM FLORIST DESIGNER Glioblastoma (HCC) T-HELPER CELLS (CD4) COUNT Routine 07/30/2024 1:28 PM FLORIST DESIGNER Glioblastoma (HCC) HEMOGLOBIN A1C Routine 09/18/2022 6:31 AM CDT LIPID PANEL Routine 08/24/2021 2:54 AM FLORIST DESIGNER DIABETIC EYE EXAM Routine 02/22/2021 PSA SCREEN Routine 07/23/2020 11:01 AM FLORIST DESIGNER Type 2 diabetes mellitus without complication, without [...] MD LAB BLOOD ORDERABLES Olga michele Result [facility] Department [place] [address] * (ABNORMAL) CBC with auto differential (09/24/2024 11:41 AM CDT) WBC 10.3(H) 3.8 - 9.9 K/cumm Comment:Testing performed by : [facility], [address] [place] [address] Hgb 10.5(L) 13.0 - 17.5 g/dL CERNER BJ Comment:Testing performed by : [facility], [address] [place], [place] [id number] Hct 32.1(L) 38.9 - 50.3 % CERNER BJ Comment:Testing performed by : [facility], [address] [place], [place] [id number] Plt 220 150 - 400 K/cumm CERNER BJ Comment:Testing performed by : [facility], [address] [place], [place] [phone] MPV 6.8 6.8 - 10.4 fL CERNER BJ Comment:Testing performed by : [facility], [address] [place], [place] [phone] RBC 3.60(L) 4.30 - 5.80 M/cumm CERNER BJ Comment:Testing performed by : [facility], [address] [place] [address] MCV 89.3 81.3 - 96.4 fL CERNER BJ Comment:Testing performed by : [facility], [address] [place], [place] [id number] MCH 29.3 27.1 - 33.3 pg CERNER BJ Comment:Testing performed by : [facility], [address] [place] [address] MCHC 32.8 32.3 - 35.7 g/dL CERNER BJ Comment:Testing performed by : [facility], [address] [place] [address] RDW CV 19.6(H) 11.1 - 14.9 % CERNER BJ Comment:Testing performed by : [facility], [address] [place] [address] NRBC abs 0.00 0.00 - 0.01 K/cumm CERNER BJ Comment:Testing performed by : [facility], [address] [place], [place] [id number] Blood 09/24/2024 11:4 1 AM CDT 09/24/2024 11:42 AM CDT Travon Stevens MD LAB BLOOD ORDERABLES Edit ed Result - Final [facility] [place] [address] * (ABNORMAL) Manual Differential (09/24/2024 11:41 AM CDT) Cells Counted 200 Comment:Testing performed by : [facility], [address] [place] [address] Neutrophil abs 8.7(H) 1.5 - 6.5 K/cumm CERNER BJ Comment:Testing performed by : [facility], [address] [place] [address] Lymphocyte abs 0.8 0.8 - 3.3 K/cumm C[facility]ER BJ Comment:Testing performed by : [facility], [address] [place] [address] Monocyte abs 0.8 0.2 - 0.8 K/cumm CERNER BJ Comment:Testing performed by : [facility], [address] [place] [address] Eosinophil abs 0.1 0.0 - 0.5 K/cumm C[facility]ER BJ Comment:Testing performed by : [facility], [address] [place] [address] Basophil abs 0.0 0.0 - 0.1 K/cumm CERNER BJ Comment:Testing performed by : [facility], [address] [place], [place] [id number] Neutrophil pct 84.0 % CERNER BJ Comment: Interpretive Data Percent cell count reference ranges are not reported, since discordance with absolute values may lead to misinterpretation of CBC data. Current Interpretive Data was last revised on 2017. Testing performed by: [facility], [address] [place] [phone] Lymphocyte pct 8.0 % [facility] Comment: Interpretive Data Percent cell count reference ranges are not reported, since discordance with absolute values may lead to misinterpretation of CBC data. Current Interpretive Data was last revised on 2017. Testing performed by: [facility], [address] [place] [phone] Monocyte pct 8.0 % SARAH PERALTA Comment: Interpretive Data Percent cell count reference ranges are not reported, since discordance with absolute values may lead to misinterpretation of CBC data. Current Interpretive Data was last revised on 2017. Testing performed by: [facility], [address] [place] [address] Eosinophil pct 1.0 % SARAH PERALTA Comment: Interpretive Data Percent cell count reference ranges are not reported, since discordance with absolute values may lead to misinterpretation of CBC data. Current Interpretive Data was last revised on 2017. Testing performed by: [facility], [address] [place] [phone] Basophil pct 0.0 % [facility] Comment: Interpretive Data Percent cell count reference ranges are not reported, since discordance with absolute values may lead to misinterpretation of CBC data. Current Interpretive Data was last revised on 2017. Testing performed by: [facility], [address] [place] [phone] Anisocytosis 1+(A) SARAH PERALTA Comment:Testing performed by : [facility], [address] [place] [phone] Platelet estimate Adequate [facility] Comment:Testing performed by : [facility], [address] [place] [phone] Blood 09/24/2024 11:4 1 AM CDT 09/24/2024 11:42 AM CDT Travon Stevens MD LAB BLOOD ORDERABLES Olga l Result [facility] [place] [address] * (ABNORMAL) T-helper cells (CD4) count (09/24/2024 11:41 AM CDT) Pathologist [facility] CD4 pct 67(H) 31 - 64 % Comment:Ran twice. CD4 Absolute 361(L) 365 - 1,294 cells/mcL [facility] Comment:Ran twice. Blood 09/24/2024 11:4 1 AM CDT 09/24/2024 12:32 PM CDT Travon Stevens MD LAB BLOOD ORDERABLES Olga michele Result [facility] [place] [address] * (ABNORMAL) Comprehensive metabolic panel (09/24/2024 11:41 AM CDT) [facility] Sodium 142 135 - 145 mmol/L Potassium, pl 4.1 3.3 - 4.9 mmol/L [facility] Chloride 104 97 - 110 mmol/L [facility] CO2 29 22 - 32 mmol/L [facility] Anion gap 9 2 - 15 mmol/L [facility] BUN 28(H) 6 - 25 mg/dL [facility] Creatinine 1.42(H) 0.80 - 1.30 mg/dL [facility] Glucose 189 70 - 199 mg/dL [facility] Comment: Interpretive Data Fasting glucose >/= 126 [...] 2022. Calcium 9.4 8.5 - 10.3 mg/dL [facility] Bilirubin, total <0.2 0.1 - 1.2 mg/dL [facility] Protein, pl 6.9 6.5 - 8.5 g/dL [facility] Albumin 3.9 3.5 - 5.0 g/dL [facility] Alk phos 62 40 - 130 Units/L [facility] ALT 20 7 - 55 Units/L [facility] AST 15 10 - 50 Units/L [facility] Blood 09/24/2024 11:4 1 AM CDT 09/24/2024 11:47 AM CDT us Travon Stevens MD LAB BLOOD ORDERABLES Olga l Result [facility] [place] [address] * (ABNORMAL) eGFR (08/27/2024 12:12 PM FLORIST DESIGNER) eGFR 51(L) >=60 mL/min/1. 73 m2 Comment: [...] reviewed 2021. Blood 08/27/2024 12:1 2 PM FLORIST DESIGNER 08/27/2024 12:18 PM FLORIST DESIGNER us Travon Stevens MD LAB BLOOD ORDERABLES Olga l Result [facility] Department [place] [address] * (ABNORMAL) Differential, auto (08/27/2024 12:12 PM FLORIST DESIGNER) Neutrophil abs 10.4(H) 1.5 - 6.5 K/cumm Comment:Testing performed by : [facility], [address] [place] [phone] Lymphocyte abs 0.2(L) 0.8 - 3.3 K/cumm [facility] Comment:Testing performed by : [facility], [address] [place] [phone] Monocyte abs 0.6 0.2 - 0.8 K/cumm [facility] Comment:Testing performed by : [facility], [address] [place] [phone] Eosinophil abs 0.0 0.0 - 0.5 K/cumm [facility] Comment:Testing performed by : [facility], [address] [place] [phone] Basophil abs 0.0 0.0 - 0.1 K/cumm [facility] Comment:Testing performed by : [facility], [address] [place] [phone] Neutrophil pct 92.8 % [facility] Comment: Interpretive Data Percent cell count reference ranges are not reported, since discordance with absolute values may lead to misinterpretation of CBC data. Current Interpretive Data was last revised on 2017. Testing performed by: [facility], [address] [place] [phone] Lymphocyte pct 1.9 % [facility] Comment: Interpretive Data Percent cell count reference ranges are not reported, since discordance with absolute values may lead to misinterpretation of CBC data. Current Interpretive Data was last revised on 2017. Testing performed by: [facility], [address] [place] [phone] Monocyte pct 4.9 % [facility] Comment: Interpretive Data Percent cell count reference ranges are not reported, since discordance with absolute values may lead to misinterpretation of CBC data. Current Interpretive Data was last revised on 2017. Testing performed by: [facility], [address] [place] [phone] Eosinophil pct 0.2 % [facility] SUMMERS Comment: Interpretive Data Percent cell count reference ranges are not reported, since discordance with absolute values may lead to misinterpretation of CBC data. Current Interpretive Data was last revised on 2017. Testing performed by: [facility], [address] [place] [phone] Basophil pct 0.2 % [facility]AH PERALTA Comment: Interpretive Data Percent cell count reference ranges are not reported, since discordance with absolute values may lead to misinterpretation of CBC data. Current Interpretive Data was last revised on 2017. Testing performed by: [facility], [address] [place] [phone] Blood 08/27/2024 12:1 2 PM FLORIST DESIGNER 08/27/2024 12:16 PM FLORIST DESIGNER us Travon Stevens MD LAB BLOOD ORDERABLES Olga michele Result [facility] Department [place] [address] * (ABNORMAL) CBC with auto differential (08/27/2024 12:12 PM FLORIST DESIGNER) WBC 11.2(H) 3.8 - 9.9 K/cumm Comment:Testing performed by : [facility], [address] [place] [phone] Hgb 11.0(L) 13.0 - 17.5 g/dL SAR[facility] SUMMERS Comment:Testing performed by : [facility], [address] [place] [phone] Hct 33.9(L) 38.9 - 50.3 % [facility]AH SUMMERS Comment:Testing performed by : [facility], [address] [place] [address] Plt 163 150 - 400 K/cumm [facility] Comment:Testing performed by : [facility], [address] [place] [address] MPV 6.8 6.8 - 10.4 fL [facility] Comment:Testing performed by : [facility], [address] [place] [address] RBC 3.86(L) 4.30 - 5.80 M/cumm [facility]J Comment:Testing performed by : [facility], [address] [place] [address] MCV 87.8 81.3 - 96.4 fL [facility] Comment:Testing performed by : [facility], [address] [place] [address] MCH 28.5 27.1 - 33.3 pg [facility] Comment:Testing performed by : [facility], [address] [place] [address] MCHC 32.4 32.3 - 35.7 g/dL [facility] Comment:Testing performed by : [facility], [address] [place] [address] RDW CV 17.1(H) 11.1 - 14.9 % [facility] Comment:Testing performed by : [facility], [address] [place] [address] NRBC abs 0.00 0.00 - 0.01 K/cumm [facility] Comment:Testing performed by : [facility], [address] [place] [address] Blood 08/27/2024 12:1 2 PM FLORIST DESIGNER 08/27/2024 12:16 PM FLORIST DESIGNER us Travon Stevens MD LAB BLOOD ORDERABLES Olga michele Result [facility] Department [place] [address] * (ABNORMAL) T-helper cells (CD4) count (08/27/2024 12:12 PM FLORIST DESIGNER) CD4 pct 60 31 - 64 % CD4 Absolute 150(L) 365 - 1,294 cells/mcL [facility] Blood 08/27/2024 12:1 2 PM FLORIST DESIGNER 08/27/2024 1:31 PM FLORIST DESIGNER Travon Stevens MD LAB BLOOD ORDERABLES Olga l Result [facility] [place] [address] * (ABNORMAL) Comprehensive metabolic panel (08/27/2024 12:12 PM FLORIST DESIGNER) Pathologist [facility] Sodium 143 135 - 145 mmol/L Potassium, pl 4.3 3.3 - 4.9 mmol/L [facility] Chloride 104 97 - 110 mmol/L [facility] CO2 32 22 - 32 mmol/L [facility] Anion gap 7 2 - 15 mmol/L [facility] BUN 31(H) 6 - 25 mg/dL [facility] Creatinine 1.50(H) 0.80 - 1.30 mg/dL [facility] Glucose 206(H) 70 - 199 mg/dL [facility] Comment: Interpretive Data Fasting glucose >/= 126 [...] 2022. Calcium 9.4 8.5 - 10.3 mg/dL [facility] Bilirubin, total 0.2 0.1 - 1.2 mg/dL [facility] Protein, pl 7.0 6.5 - 8.5 g/dL [facility] Albumin 4.0 3.5 - 5.0 g/dL [facility] Alk phos 66 40 - 130 Units/L [facility] ALT 27 7 - 55 Units/L [facility] AST 16 10 - 50 Units/L [facility] Blood 08/27/2024 12:1 2 PM FLORIST DESIGNER 08/27/2024 12:18 PM FLORIST DESIGNER us Travon Stevens MD LAB BLOOD ORDERABLES Olga ryne Result [facility] [place] [address] * MRI Brain W WO Contrast (08/25/2024 3:03 PM FLORIST DESIGNER) Anatomical Region Laterality Modality Head and Neck N/A Magnetic Resonan ce 08/25/2024 5:49 PM FLORIST DESIGNER Impressions 08/25/2024 5:49 PM FLORIST DESIGNER Postoperative findings with marked interval increase in size of masslike enhancement within the left parieto-occipital lobe and elevated relative cerebral blood volume along the periphery of this region of signal abnormality, compatible with progression of residual disease. Electronically signed by: Silvio Dudley MD Narrative 08/25/2024 5:49 PM FLORIST DESIGNER EXAMINATION: Magnetic resonance imaging (MRI) of the brain and brainstem without and with contrast HISTORY: Brain/MEDICAL LAB TECHNOLOGIST neoplasm, assess treatment response. TECHNIQUE: Multiplanar multi-weighted [...] and brainstem without and with contrast HISTORY: Brain/MEDICAL LAB TECHNOLOGIST neoplasm, assess treatment response. TECHNIQUE: Multiplanar multi-weighted [...] by: Silvio Dudley MD Travon Stevens MD IMG MRI PROCEDURES Final Result * (ABNORMAL) eGFR (07/30/2024 1:28 PM FLORIST DESIGNER) eGFR 50(L) >=60 mL/min/1. 73 m2 Comment: [...] last reviewed 2021. Blood 07/30/2024 1:28 PM FLORIST DESIGNER 07/30/2024 1:31 PM FLORIST DESIGNER Travon Stevens MD LAB BLOOD ORDERABLES Olga l Result [facility] [place] [address] * (ABNORMAL) Differential, auto (07/30/2024 1:28 PM FLORIST DESIGNER) Neutrophil abs 10.8(H) 1.5 - 6.5 K/cumm Comment: See updated manual differential results Testing performed by: [facility], [address] [place] [phone] Lymphocyte abs 0.5(L) 0.8 - 3.3 K/cumm SARAH PERALTA Comment: See updated manual differential results Testing performed by: [facility], [address] [place], [place] [phone] Monocyte abs 0.4 0.2 - 0.8 K/cumm [facility]AH PERALTA Comment: See updated manual differential results Testing performed by: [facility], [address] [place], [place] [phone] Eosinophil abs 0.0 0.0 - 0.5 K/cumm [facility] PERALTA Comment: See updated manual differential results Testing performed by: [facility], [address] [place] [phone] Basophil abs 0.0 0.0 - 0.1 K/cumm [facility] Comment: See updated manual differential results Testing performed by: [facility], [address] [place] [phone] Neutrophil pct 91.9 % [facility] Comment: See updated manual differential results Interpretive Data Percent cell count reference ranges are not reported, since discordance with absolute values may lead to misinterpretation of CBC data. Current Interpretive Data was last revised on 2017. Testing performed by: [facility], [address] [place] [phone] Lymphocyte pct 4.1 % [facility] Comment: See updated manual differential results Interpretive Data Percent cell count reference ranges are not reported, since discordance with absolute values may lead to misinterpretation of CBC data. Current Interpretive Data was last revised on 2017. Testing performed by: [facility], [address] [place] [phone] Monocyte pct 3.6 % [facility]AH PERALTA Comment: See updated manual differential results Interpretive Data Percent cell count reference ranges are not reported, since discordance with absolute values may lead to misinterpretation of CBC data. Current Interpretive Data was last revised on 2017. Testing performed by: [facility], [address] [place] [phone] Eosinophil pct 0.1 % [facility] PERALTA Comment: See updated manual differential results Interpretive Data Percent cell count reference ranges are not reported, since discordance with absolute values may lead to misinterpretation of CBC data. Current Interpretive Data was last revised on 2017. Testing performed by: [facility], [address] [place] [phone] Basophil pct 0.3 % [facility]AH PERALTA Comment: See updated manual differential results Interpretive Data Percent cell count reference ranges are not reported, since discordance with absolute values may lead to misinterpretation of CBC data. Current Interpretive Data was last revised on 2017. Testing performed by: [facility], [address] [place] [phone] Blood 07/30/2024 1:28 PM FLORIST DESIGNER 07/30/2024 1:30 PM FLORIST DESIGNER Travon Stevens MD LAB BLOOD ORDERABLES Edit ed Result - Final [facility] Department of Laboratories [place], [place] [id number] * (ABNORMAL) CBC with auto differential (07/30/2024 1:28 PM FLORIST DESIGNER) WBC 11.8(H) 3.8 - 9.9 K/cumm Comment:Testing performed by : [facility], [address] [place] [address] Hgb 11.4(L) 13.0 - 17.5 g/dL [facility] PERALTA Comment:Testing performed by : [facility], [address] [place] [address] Hct 35.6(L) 38.9 - 50.3 % [facility]ER [facility]J Comment:Testing performed by : [facility], [address] [place] [address] Plt 275 150 - 400 K/cumm [facility]J Comment:Testing performed by : [facility], [address] [place] [address] MPV 6.8 6.8 - 10.4 fL [facility]J Comment:Testing performed by : [facility], [address] [place] [address] RBC 4.04(L) 4.30 - 5.80 M/cumm [facility]J Comment:Testing performed by : [facility], [address] [place] [address] MCV 88.1 81.3 - 96.4 fL [facility] Comment:Testing performed by : [facility], [address] [place] [address] MCH 28.3 27.1 - 33.3 pg [facility]J Comment:Testing performed by : [facility], [address] [place] [address] MCHC 32.1(L) 32.3 - 35.7 g/dL [facility] Comment:Testing performed by : [facility], [address] [place] [address] RDW CV 15.9(H) 11.1 - 14.9 % [facility] Comment:Testing performed by : [facility], [address] [place] [address] NRBC abs 0.00 0.00 - 0.01 K/cumm [facility]ER [facility]J Comment:Testing performed by : [facility], [address] [place] [address] Blood 07/30/2024 1:28 PM FLORIST DESIGNER 07/30/2024 1:30 PM FLORIST DESIGNER Travon Stevens MD LAB BLOOD ORDERABLES Edit ed Result - Final [facility] [place] [address] * (ABNORMAL) Manual Differential (07/30/2024 1:28 PM FLORIST DESIGNER) Cells Counted 200 Comment:Testing performed by : [facility], [address] [place] [phone] Neutrophil abs 10.7(H) 1.5 - 6.5 K/cumm [facility]ER [facility]J Comment:Testing performed by : [facility], [address] [place] [phone] Lymphocyte abs 0.4(L) 0.8 - 3.3 K/cumm [facility]ER [facility]J Comment:Testing performed by : [facility], [address] [place], [place] [phone] Monocyte abs 0.4 0.2 - 0.8 K/cumm CERNER [facility]J Comment:Testing performed by : [facility], [address] [place], [place] [phone] Eosinophil abs 0.1 0.0 - 0.5 K/cumm [facility]J Comment:Testing performed by : [facility], [address] [place] [phone] Basophil abs 0.0 0.0 - 0.1 K/cumm [facility]J Comment:Testing performed by : [facility], [address] [place] [phone] Neutrophil pct 91.0 % [facility]ERNER BJ Comment: Interpretive Data Percent cell count reference ranges are not reported, since discordance with absolute values may lead to misinterpretation of CBC data. Current Interpretive Data was last revised on 2017. Testing performed by: [facility], [address] [place] [phone] Lymphocyte pct 3.0 % [facility]J Comment: Interpretive Data Percent cell count reference ranges are not reported, since discordance with absolute values may lead to misinterpretation of CBC data. Current Interpretive Data was last revised on 2017. Testing performed by: [facility], [address] [place] [phone] Monocyte pct 3.0 % [facility] Comment: Interpretive Data Percent cell count reference ranges are not reported, since discordance with absolute values may lead to misinterpretation of CBC data. Current Interpretive Data was last revised on 2017. Testing performed by: [facility], [address] [place] [phone] Eosinophil pct 1.0 % [facility] Comment: Interpretive Data Percent cell count reference ranges are not reported, since discordance with absolute values may lead to misinterpretation of CBC data. Current Interpretive Data was last revised on 2017. Testing performed by: [facility], [address] [place] [phone] Basophil pct 0.0 % [facility] Comment: Interpretive Data Percent cell count reference ranges are not reported, since discordance with absolute values may lead to misinterpretation of CBC data. Current Interpretive Data was last revised on 2017. Testing performed by: [facility], [address] [place] [phone] Metamyelocyte pct 1.0 % [facility] Comment:Testing performed by : [facility], [address] [place] [phone] Myelocyte pct 1.0 % [facility] Comment:Testing performed by : [facility], [address] [place] [phone] Promyelocyte pct 1.0 % [facility] Comment:Testing performed by : [facility], [address] [place] [phone] Variant lymph pct 1.0 % [facility] Comment:Testing performed by : [facility], [address] [place] [phone] Polychromasia 1+(A) [facility] Comment:Testing performed by : [facility], [address] [place] [phone] Anisocytosis 1+(A) [facility] Comment:Testing performed by : [facility], [address] [place] [phone] Poikilocytosis 1+(A) [facility] Comment:Testing performed by : [facility], [address] [place] [phone] Microcytes 1+(A) [facility] Comment:Testing performed by : [facility], [address] [place] [phone] Elliptocytes 1+(A) [facility] Comment:Testing performed by : [facility], [address] [place], [place] [phone] Teardrop cells 1+(A) [facility] Comment:Testing performed by : [facility], [address] [place], [place] [phone] Platelet estimate Adequate [facility] Comment:Testing performed by : [facility], [address] [place], [place] [phone] Giant platelets Present(A) [facility] Comment:Testing performed by : [facility], [address] [place] [phone] Blood 07/30/2024 1:28 PM FLORIST DESIGNER 07/30/2024 1:30 PM FLORIST DESIGNER Travon Stevens MD LAB BLOOD ORDERABLES Olga l Result Performing Organization Address City/[facility]/ZIP Co de Phone Number [facility] [place] [address] * (ABNORMAL) T-helper cells (CD4) count (07/30/2024 1:28 PM FLORIST DESIGNER) CD4 pct 45 31 - 64 % CD4 Absolute 221(L) 365 - 1,294 cells/mcL [facility] Blood 07/30/2024 1:28 PM FLORIST DESIGNER 07/30/2024 5:14 PM FLORIST DESIGNER Travon Stevens MD LAB BLOOD ORDERABLES Olga l Result [facility] [place] [address] * (ABNORMAL) Comprehensive metabolic panel (07/30/2024 1:28 PM FLORIST DESIGNER) Sodium 143 135 - 145 mmol/L Potassium, pl 4.1 3.3 - 4.9 mmol/L [facility] Chloride 104 97 - 110 mmol/L [facility] CO2 32 22 - 32 mmol/L [facility] Anion gap 7 2 - 15 mmol/L [facility] BUN 38(H) 6 - 25 mg/dL [facility] Creatinine 1.54(H) 0.80 - 1.30 mg/dL [facility] Glucose 161 70 - 199 mg/dL [facility] Comment: Interpretive Data Fasting glucose >/= 126 [...] 2022. Calcium 9.0 8.5 - 10.3 mg/dL [facility] Bilirubin, total 0.2 0.1 - 1.2 mg/dL [facility] Protein, pl 6.8 6.5 - 8.5 g/dL [facility] Albumin 3.5 3.5 - 5.0 g/dL [facility] Alk phos 79 40 - 130 Units/L [facility] ALT 27 7 - 55 Units/L [facility] AST 25 10 - 50 Units/L [facility] Blood 07/30/2024 1:28 PM FLORIST DESIGNER 07/30/2024 1:31 PM FLORIST DESIGNER Travon Stevens MD LAB BLOOD ORDERABLES Olga michele Result [facility] [place] [address] * (ABNORMAL) Hemoglobin A1c (09/18/2022 6:31 AM CDT) Hgb A1C 8.3(H) 4.0 - 5.6 % [facility] NICHOLS Estimated Average Glucose 192 mg/dL [facility] Comment: The ADA recommends reporting an estimated Average Glucose (eAG) with all Hemoglobin A1c results using the equation derived from a study of 507 normal and diabetic adults. Minority populations were underrepresented and children were not included. (Diabetes Care 31:1219-6048, 2008). The eAG is not equivalent to a fasting glucose. Blood 09/18/2022 6:31 AM CDT 09/18/2022 6:58 AM CDT us Enrique Castro MD LAB BLOOD ORDERABLES Final Re sult SARAH [address] [facility] [place] [address] * (ABNORMAL) Lipid panel (08/24/2021 2:54 AM FLORIST DESIGNER) Cholesterol 166 30 - 199 mg/dL SARAH [...] on 2018. HDL 32(L) >=40 mg/dL [facility] Comment: Interpretive Data Ages < or = [...] 2018. LDL, calculated 103 <=129 mg/dL [facility] NICHOL[facility] Comment: Interpretive Data Ages < or = [...] on 2018. Non-HDL Cholesterol 134 mg/dL [facility] NICHOL[facility] Comment: Interpretive Data Ages < or = [...] revised on 2018. Chol/HDL ratio 5 [facility] NICHOL[facility] Blood 08/24/2021 2:54 AM FLORIST DESIGNER 08/24/2021 3:09 AM FLORIST DESIGNER us Monik Jimenez MD LAB BLOOD ORDERABLES Final Result SARAH [address] [facility] [place] [address] * Diabetic Eye Exam (02/22/2021) 02/22/2021 Historical Provider HEALTH MAINTENANCE Final Result * PSA screen (07/23/2020 11:01 AM FLORIST DESIGNER) [facility] PSA 0.5 0.0 - 4.0 ng/mL [facility] - 01 Comment: Juli ECLIA methodology. According to the [place] [employer], Serum PSA should decrease and [...] disease. Blood specimen (specimen) 07/23/2020 11:01 AM FLORIST DESIGNER 07/23/2020 Narrative [facility] - 07/25/2020 7:35 AM FLORIST DESIGNER Performed at: [facility] [address] [id number] Data Typist: Marlon Knowles PhD, Phone: [phone] us Lan Doss MD LAB BLOOD ORDERABLES Final Re sult [facility] - 01 * Colonoscopy (08/23/2014) Anatomical Region Laterality Modality Other Historical Provider ENDOSCOPY PROCEDURES Olga l Result from Last 3 Months or Most Recently Relevant to Health Maintenance Insurance MEDICARE [facility] MEDICARE BLUE CROSS MEDICARE SUPPLEMENT MEDICARE [facility] Address: [address] [place] [id number] [facility] MEDICARE SUPPLEMENT Advance Directives For more information, please contact: [phone] Documents on File Type Date Recorded Patient Associate Director Finance Expl anation ADVANCE DIRECTIVE 02/19/2022 11:51 AM ADVANCE DIRECTIVE 01/25/2021 ADVANCE DIRECTIVE 07/02/2018 4:48 PM POWER OF SOCIAL WORKER PALLIATIVE CARE/ LAST WILL AND TESTAME * Full Code [...] Name Relationship Healthcare Agent Relationshi p Communication Ctaherine Talley Spouse Health Care Agent [email or web address] Care Teams Passenger Car Upholsterer Apprentice Relationship Specialty Start Date End Date Lan Doss MD PCP - General Family Medicine 08/23/21 Lan Doss MD 08/23/21 Travon Stevens MD Medical Oncologist/Psychologist Educational Medical Oncology 11/11/18 Deshawn Penaloza MD Surgeon Neurosurgery 01/23/19
--- OUTSIDE RECORDS SUMMARY | 2024-10-17 14:07 | XMS_ITS | Encounter Summary ---
Author Organization [facility] Facility Care Team Providers Care Club Former Name Role Phone Lan Doss MD Primary Care Provider [phone] Lan Doss MD Primary Care Provider [phone] Lan Doss MD Unavailable [phone] Travon Stevens MD Unavailable Deshawn Penaloza MD Unavailable Nina Flores MD Unavailable Jane Urrutia MA Unavailable [phone] Jen Ramos LPN Unavailable [phone] Encounter Details Date Type Department Care Team (Latest Contact Info) Description 11/08/2015 Orders Only [facility] CLINCONV ProviderTerri MD [address] [place] [address] Social History Tobacco Use Types Packs/Day Years Used Date Smoking Tobacco: Never Assessed Sex and Gender Information Value Date Recorded Sex Assigned at Not on file Legal Sex Male 7:15 PM MAINTENANCE MECHANIC TELEPHONE Gender Identity Not on file Sexual Orientation Straight 08/31/2021 4: 21 PM MAINTENANCE MECHANIC TELEPHONE documented as of this encounter Plan of [...] COVID: Suspected 07/11/2021 07/11/2021 07/11/2021 8:04 AM MAINTENANCE MECHANIC TELEPHONE COVID19 07/11/2021 07/11/2021 07/25/2021 3:05 AM MAINTENANCE MECHANIC TELEPHONE COVID: Recovered Comment:Added based on recent COVID infection. 07/25/2021 08/07/2021 11/22/2021 3:05 AM C DT documented as of this encounter Care Teams Club Former Relationship Specialty Start Date End Date Lan Doss MD PCP - General 06/27/18 08/22/21 Lan Doss MD PCP - General Family Medicine 08/23/21 Lan Doss MD 08/23/21 Travon Stevens MD Medical Oncologist/Golf Course Equipment Operator Medical Oncology 11/11/18 Deshawn Penaloza MD Surgeon Neurosurgery 01/23/19 Nina Flores MD Radiation Oncologist Radiation Oncology 01/23/19 Jane Urrutia MA [address] [place] [address] ACO Care Directory Compiler 10/05/21 10/06/21 Jen Ramos LPN [address] [place] [address] Weed Thinner 09/06/22 09/16/22 documented as of this encounter
--- OUTSIDE RECORDS SUMMARY | 2024-10-17 14:07 | XMS_ITS | Encounter Summary ---
Author Organization [facility] Facility Care Team Providers Care Co Founder Name Role Phone Lan Doss MD Primary Care Provider [phone] Lan Doss MD Primary Care Provider [phone] Lan Doss MD Unavailable [phone] Travon Stevens MD Unavailable [phone] Deshawn Penaloza MD Unavailable [phone] Nina Flores MD Unavailable [phone] Jane Urrutia MA Unavailable [phone] Jen Ramos LPN Unavailable [phone] Encounter Details Date Type Department Care Team (Latest Contact Info) Description 05/03/2016 Orders Only [facility] CLINCONV ProviderTerri MD [address] [place] [address] Social History Tobacco Use Types Packs/Day Years Used Date Smoking Tobacco: Never Assessed Sex and Gender Information Value Date Recorded Sex Assigned at Not on file Legal Sex Male 7:15 PM REJECT OPENER AND FILLER Gender Identity Not on file Sexual Orientation Straight 08/31/2021 4: 21 PM REJECT OPENER AND FILLER documented as of this encounter Plan of [...] COVID: Suspected 07/11/2021 07/11/2021 07/11/2021 8:04 AM REJECT OPENER AND FILLER COVID19 07/11/2021 07/11/2021 07/25/2021 3:05 AM REJECT OPENER AND FILLER COVID: Recovered Comment:Added based on recent COVID infection. 07/25/2021 08/07/2021 11/22/2021 3:05 AM C DT documented as of this encounter Care Teams Co Founder Relationship Specialty Start Date End Date Lan Doss MD PCP - General 06/27/18 08/22/21 Lan Doss MD PCP - General Family Medicine 08/23/21 Lan Doss MD 08/23/21 Travon Stevens MD Medical Oncologist/Sewer Line Photo Inspector Medical Oncology 11/11/18 Deshawn Penaloza MD Surgeon Neurosurgery 01/23/19 Nina Flores MD Radiation Oncologist Radiation Oncology 01/23/19 aJne Urrutia MA [address] [place] [address] ACO Care Certified Drug Counselor 10/05/21 10/06/21 Jen Ramos LPN [address] [place] [address] United [place] Attorney 09/06/22 09/16/22 documented as of this encounter
--- OUTSIDE RECORDS SUMMARY | 2024-10-17 14:07 | XMS_ITS | Encounter Summary ---
Author Organization [facility] Facility Care Team Providers Care Vanstone Machine Operator Name Role Phone Lan Doss MD Primary Care Provider [phone] Lan Doss MD Primary Care Provider [phone] Lan Doss MD Unavailable [phone] Travon Stevens MD Unavailable Deshawn Penaloza MD Unavailable [phone] Nina Flores MD Unavailable Jane Urrutia MA Unavailable [phone] Jen Ramos LPN Unavailable [phone] Encounter Details Date Type Department Care Team (Latest Contact Info) Description 10/29/2016 Orders Only [facility] CLINCONV ProviderTerri MD [address] [place] [address] Social History Tobacco Use Types Packs/Day Years Used Date Smoking Tobacco: Never Assessed Sex and Gender Information Value Date Recorded Sex Assigned at Not on file Legal Sex Male 7:15 PM ASSISTANT FLOOR COVERING PRINTER Gender Identity Not on file Sexual Orientation Straight 08/31/2021 4: 21 PM ASSISTANT FLOOR COVERING PRINTER documented as of this encounter Plan of [...] COVID: Suspected 07/11/2021 07/11/2021 07/11/2021 8:04 AM ASSISTANT FLOOR COVERING PRINTER COVID19 07/11/2021 07/11/2021 07/25/2021 3:05 AM ASSISTANT FLOOR COVERING PRINTER COVID: Recovered Comment:Added based on recent COVID infection. 07/25/2021 08/07/2021 11/22/2021 3:05 AM C DT documented as of this encounter Care Teams Vanstone Machine Operator Relationship Specialty Start Date End Date Lan Doss MD PCP - General 06/27/18 08/22/21 Lan Doss MD PCP - General Family Medicine 08/23/21 Lan Doss MD 08/23/21 Travon Stevens MD Medical Oncologist/Hospital Wellness Coordinator Medical Oncology 11/11/18 Deshawn Penaloza MD Surgeon Neurosurgery 01/23/19 Nina Flores MD Radiation Oncologist Radiation Oncology 01/23/19 Jane Urrutia MA [address] [place] [address] ACO Care Special Forces Communications Sergeant 10/05/21 10/06/21 Jen Ramos LPN [address] [place] [address] Sourcing Specialist 09/06/22 09/16/22 documented as of this encounter
--- OUTSIDE RECORDS SUMMARY | 2024-10-17 14:07 | XMS_ITS | Encounter Summary ---
Author Organization [facility] Facility Care Team Providers Care Proj Engineer Name Role Phone Lan Doss MD Primary Care Provider [phone] Lan Doss MD Primary Care Provider [phone] Lan Doss MD Unavailable [phone] Travon Stevens MD Unavailable Deshawn Penaloza MD Unavailable [phone] Nina Flores MD Unavailable [phone] Jane Urrutia MA Unavailable [phone] Jen Ramos LPN Unavailable [phone] Encounter Details Date Type Department Care Team (Latest Contact Info) Description 06/30/2018 Orders Only [facility]G CLINCONV ProviderTerri MD [address] [place] [address] Social History Tobacco Use Types Packs/Day Years Used Date Smoking Tobacco: Former Smokeless Tobacco: Never Alcohol Use Standard Drinks/Week Comments Defer 0 (1 standard drink = 0.6 oz pur e alcohol) Sex and Gender Information Value Date Recorded Sex Assigned at Not on file Legal Sex Male 7:15 PM CLINICAL PSYCHIATRIST Gender Identity Not on file Sexual Orientation Straight 08/31/2021 4: 21 PM CLINICAL PSYCHIATRIST documented as of this encounter Plan of Treatment Not on file documented as of this encounter Procedures Procedure Name Priority Date/Time Associated Diagnosis Comments SCAN - PATHOLOGY 07/11/2018 12:0 0 AM CLINICAL PSYCHIATRIST documented in this encounter Results * SCAN - PATHOLOGY (07/11/2018 12:00 AM CLINICAL PSYCHIATRIST) Narrative 07/11/2018 12:00 AM CLINICAL PSYCHIATRIST Ordered by an unspecified provider. us Historical [...] COVID: Suspected 07/11/2021 07/11/2021 07/11/2021 8:04 AM CLINICAL PSYCHIATRIST COVID19 07/11/2021 07/11/2021 07/25/2021 3:05 AM CLINICAL PSYCHIATRIST COVID: Recovered Comment:Added based on recent COVID infection. 07/25/2021 08/07/2021 11/22/2021 3:05 AM C DT documented as of this encounter Care Teams Proj Engineer Relationship Specialty Start Date End Date Lan Doss MD PCP - General 06/27/18 08/22/21 Lan Doss MD PCP - General Family Medicine 08/23/21 Lan Doss MD 08/23/21 Travon Stevens MD Medical Oncologist/Clerical Assigner Medical Oncology 11/11/18 Deshawn Penaloza MD Surgeon Neurosurgery 01/23/19 Nina Flores MD Radiation Oncologist Radiation Oncology 01/23/19 Jane Urrutia MA [address] [place] [address] ACO Care Vegetable Vendor 10/05/21 10/06/21 Jen Ramos LPN [address] [place] [address] Animal Skinner 09/06/22 09/16/22 documented as of this encounter
--- OUTSIDE RECORDS SUMMARY | 2024-10-17 14:07 | XMS_ITS | Encounter Summary ---
Author Organization [facility] Address [address] [place] [address] Phone Care Team Providers Care Window Glass Cutter Off Name Role Phone Lan Doss MD Primary Care Provider [phone] Lan Doss MD Unavailable [phone] Travon Stevens MD Unavailable [phone] Deshawn Penaloza MD Unavailable [phone] Encounter Details Date Type Department Care Team [...] often do you attend chur ch or moravian services? Never 09/18/2022 Do you belong to any clubs o r organizations such as oriental orthodox groups, unions, fraternal or athletic groups, or [...] place to sleep or slept in a residential (including now)? No 09/18/2022 Personal Safety Answer Date Recorded Have you ever been in or are you currently in a harmful physical or emotional relationship or is someone making you feel afraid or unsafe? Denies 09/18/2022 Sex and Gender Information Value Date Recorded Sex Assigned at Not on file Legal Sex Male 7:15 PM WELCOME HOSTESS Gender Identity Not on file Sexual Orientation Straight 08/31/2021 4: 21 PM WELCOME HOSTESS Occupation Industry Job Start Date Job End [...] on filedocumented in this encounter Care Teams Window Glass Cutter Off Relationship Specialty Start Date End Date Lan Doss MD PCP - General Family Medicine 08/23/21 Lan Doss MD 08/23/21 Travon Stevens MD Medical Oncologist/Production Potter Medical Oncology 11/11/18 Deshawn Penaloza MD Surgeon Neurosurgery 01/23/19 documented as of this encounter
--- OUTSIDE RECORDS SUMMARY | 2024-10-17 14:07 | XMS_ITS | Encounter Summary ---
Author Organization [facility] Facility Care Team Providers Care Network Coordinator Name Role Phone Lan Doss MD Primary Care Provider [phone] Lan Doss MD Primary Care Provider [phone] Lan Doss MD Unavailable [phone] Travon Stevens MD Unavailable Deshawn Penaloza MD Unavailable [phone] Nina Flores MD Unavailable Jane Urrutia MA Unavailable [phone] Jen Ramos LPN Unavailable [phone] Encounter Details Date Type Department Care Team (Latest Contact Info) Description 10/03/2015 Orders Only [facility]G CLINCONV ProviderTerri MD [address] [place] [address] Social History Tobacco Use Types Packs/Day Years Used Date Smoking Tobacco: Never Assessed Sex and Gender Information Value Date Recorded Sex Assigned at Not on file Legal Sex Male 7:15 PM BATH MIX OPERATOR Gender Identity Not on file Sexual Orientation Straight 08/31/2021 4: 21 PM BATH MIX OPERATOR documented as of this encounter Plan of [...] COVID: Suspected 07/11/2021 07/11/2021 07/11/2021 8:04 AM BATH MIX OPERATOR COVID19 07/11/2021 07/11/2021 07/25/2021 3:05 AM BATH MIX OPERATOR COVID: Recovered Comment:Added based on recent COVID infection. 07/25/2021 08/07/2021 11/22/2021 3:05 AM C DT documented as of this encounter Care Teams Network Coordinator Relationship Specialty Start Date End Date Lan Doss MD PCP - General 06/27/18 08/22/21 Lan Doss MD PCP - General Family Medicine 08/23/21 Lan Doss MD 08/23/21 Travon Stevens MD Medical Oncologist/Wood Boat Builder Supervisor Medical Oncology 11/11/18 Deshawn Penaloza MD Surgeon Neurosurgery 01/23/19 Nina Flores MD Radiation Oncologist Radiation Oncology 01/23/19 Jane Urrutia MA [address] [place] [address] ACO Care Veneer Joiner 10/05/21 10/06/21 Jen Ramos LPN [address] [place] [address] Radiation Control Technician 09/06/22 09/16/22 documented as of this encounter
--- OUTSIDE RECORDS SUMMARY | 2024-10-17 14:07 | XMS_ITS | Encounter Summary ---
Author Organization [facility] Facility Care Team Providers Care Manager Market Name Role Phone Lan Doss MD Primary Care Provider [phone] Lan Doss MD Primary Care Provider [phone] Lan Doss MD Unavailable [phone] Travon Stevens MD Unavailable Deshawn Penaloza MD Unavailable [phone] Nina Flores MD Unavailable [phone] Jane Urrutia MA Unavailable [phone] Jen Ramos LPN Unavailable [phone] Encounter Details Date Type Department Care Team (Latest Contact Info) Description 04/24/2016 Orders Only [facility]G CLINCONV ProviderTerri MD [address] [place] [address] Social History Tobacco Use Types Packs/Day Years Used Date Smoking Tobacco: Never Assessed Sex and Gender Information Value Date Recorded Sex Assigned at Not on file Legal Sex Male 7:15 PM DIRECTOR RADIATION ONCOLOGY Gender Identity Not on file Sexual Orientation Straight 08/31/2021 4: 21 PM DIRECTOR RADIATION ONCOLOGY documented as of this encounter Plan of [...] Suspected 07/11/2021 07/11/2021 07/11/2021 8:04 AM DIRECTOR RADIATION ONCOLOGY COVID19 07/11/2021 07/11/2021 07/25/2021 3:05 AM DIRECTOR RADIATION ONCOLOGY COVID: Recovered Comment:Added based on recent COVID infection. 07/25/2021 08/07/2021 11/22/2021 3:05 AM C DT documented as of this encounter Care Teams Manager Market Relationship Specialty Start Date End Date Lan Doss MD PCP - General 06/27/18 08/22/21 Lan Doss MD PCP - General Family Medicine 08/23/21 Lan Doss MD 08/23/21 Travon Stevens MD Medical Oncologist/Machine Assembler Medical Oncology 11/11/18 Deshawn Penaloza MD Surgeon Neurosurgery 01/23/19 Nina Flores MD Radiation Oncologist Radiation Oncology 01/23/19 Jane Urrutia MA [address] [place] [address] ACO Care Motion Picture Scene Builder 10/05/21 10/06/21 Jen Ramos LPN [address] [place] [address] Stoper 09/06/22 09/16/22 documented as of this encounter
--- OUTSIDE RECORDS SUMMARY | 2024-10-17 14:07 | XMS_ITS | Encounter Summary ---
Author Organization [facility] Healthcare Address [address] [place] [address] Care Team Providers Care Chenille Machine Operator Name Role Phone Lan Doss MD Primary Care Provider [phone] Lan Doss MD Primary Care Provider [phone] Lan Doss MD Unavailable Travon Stevens MD Unavailable Deshawn Penaloza MD Unavailable [phone] Jane Urrutia MA Unavailable [phone] Jen Ramos LPN Unavailable Encounter Details Date Type Department Care Team (Late st Contact Info) Description 01/20/2020 Telephone [facility] Radiology [facility] [address] [place] [address] Travon Stevens MD [address] [facility] [address] [place], [place] [id number] Social History Tobacco Use Types Packs/Day Years [...] on file Legal Sex Male 7:15 PM SENIOR HR MANAGER Gender Identity Not on file Sexual Orientation Straight 08/31/2021 4: 21 PM SENIOR HR MANAGER Occupation Industry Job Start Date Job End [...] COVID: Suspected 07/11/2021 07/11/2021 07/11/2021 8:04 AM SENIOR HR MANAGER COVID19 07/11/2021 07/11/2021 07/25/2021 3:05 AM SENIOR HR MANAGER COVID: Recovered Comment:Added based on recent COVID infection. 07/25/2021 08/07/2021 11/22/2021 3:05 AM C DT documented as of this encounter Care Teams Chenille Machine Operator Relationship Specialty Start Date End Date Lan Doss MD PCP - General 06/27/18 08/22/21 Lan Doss MD PCP - General Family Medicine 08/23/21 Lan Doss MD 08/23/21 Travno Stevens MD Medical Oncologist/Mallet And Die Cutter Medical Oncology 11/11/18 Deshawn Penaloza MD Surgeon Neurosurgery 01/23/19 Jane Urrutia MA [address] [place], [place] [address] ACO Care Ore Sampler 10/05/21 10/06/21 Jen Ramos LPN [address] [place] [address] Heel Cover Softener 09/06/22 09/16/22 documented as of this encounter
--- OUTSIDE RECORDS SUMMARY | 2024-10-17 14:07 | XMS_ITS | Encounter Summary ---
Author Organization [facility] Healthcare Address [address] [place] [address] Care Team Providers Care Fish Agent Name Role Phone Lan Doss MD Primary Care Provider [phone] Lan Doss MD Unavailable [phone] Travon Stevens MD Unavailable [phone] Deshawn Penaloza MD Unavailable [phone] Jen Ramos LPN Unavailable [phone] Encounter Details Date Type Department Care Team (Late st Contact Info) Description 02/16/2022 Documentation [facility] OP Speech Therapy [address] [id number] Mila Reddy, LINESPERSON Social History Tobacco Use Types Packs/Day Years [...] on file Legal Sex Male 7:15 PM NETWORK APPLICATIONS SPECIALIST Gender Identity Not on file Sexual Orientation Straight 08/31/2021 4: 21 PM NETWORK APPLICATIONS SPECIALIST Occupation Industry Job Start Date Job End [...] disease documented in this encounter Care Teams Fish Agent Relationship Specialty Start Date End Date Lan Doss MD PCP - General Family Medicine 08/23/21 Lan Doss MD 08/23/21 Travon Stevens MD Medical Oncologist/Tin Recovery Worker Medical Oncology 11/11/18 Deshawn Penaloza MD Surgeon Neurosurgery 01/23/19 Jen Ramos, ZANE [address] [place] [address] [place] [address] Corporate Sales Manager 09/06/22 09/16/22 documented as of this encounter
--- OUTSIDE RECORDS SUMMARY | 2024-10-17 14:07 | XMS_ITS | Encounter Summary ---
Author Organization [facility] Care Team Providers Care Technology Trainer Name Role Phone Lan Doss MD Primary Care Provider [phone] Lan Doss MD Primary Care Provider [phone] Lan Doss MD Unavailable [phone] Travon Stevens MD Unavailable [phone] Deshawn Penaloza MD Unavailable [phone] Nina Flores MD Unavailable Jane Urrutia MA Unavailable [phone] Jen Ramos LPN Unavailable [phone] Encounter Details Date Type Department Care Team (Latest Contact Info) Description 11/09/2015 Orders Only [facility] ProviderTerri MD [address] [place] [id number] Social History Tobacco Use Types Packs/Day Years Used Date Smoking Tobacco: Never Assessed Sex and Gender Information Value Date Recorded Sex Assigned at Not on file Legal Sex Male 7:15 PM CHEF SAUCIER Gender Identity Not on file Sexual Orientation Straight 08/31/2021 4: 21 PM CHEF SAUCIER documented as of this encounter Plan of [...] COVID: Suspected 07/11/2021 07/11/2021 07/11/2021 8:04 AM CHEF SAUCIER COVID19 07/11/2021 07/11/2021 07/25/2021 3:05 AM CHEF SAUCIER COVID: Recovered Comment:Added based on recent COVID infection. 07/25/2021 08/07/2021 11/22/2021 3:05 AM C DT documented as of this encounter Care Teams Technology Trainer Relationship Specialty Start Date End Date Lan Doss MD PCP - General 06/27/18 08/22/21 Lan Doss MD PCP - General Family Medicine 08/23/21 Lan Doss MD 08/23/21 Travon Stevens MD Medical Oncologist/Cooker Tender Medical Oncology 11/11/18 Deshawn Penaloza MD Surgeon Neurosurgery 01/23/19 Nina Flores MD Radiation Oncologist Radiation Oncology 01/23/19 Jane Urrutia MA [address] [place] [address] ACO Care Cement Contractor 10/05/21 10/06/21 Jen Ramos LPN [address] [place] [address] Motion Picture Scene Builder 09/06/22 09/16/22 documented as of this encounter
--- OUTSIDE RECORDS SUMMARY | 2024-10-17 14:07 | XMS_ITS | Clinical Summary ---
Author Organization [facility] Address [address] [place] [address] Care Team Providers Care Cuff Folder Name Role Phone Unavailable Primary Care Provider [...]
--- OUTSIDE RECORDS SUMMARY | 2024-10-17 14:07 | XMS_ITS | Clinical Summary ---
Author Organization [facility] Address [address] [place] [address] Care Team Providers Care Piano Mover Name Role Phone Lan Doss MD Primary Care Provider [phone] Lan Doss MD Unavailable [phone] Travon Stevens MD Unavailable [phone] Deshawn Penaloza MD Unavailable [phone] Allergies No known active allergies Medications rizatriptan [...] ondansetron (ZOFRAN) 8 mg tabletIndicati ons:Glioblasto ma ([facility]) Take 1 tablet (8 mg total) by mouth every 8 (eight) hours as needed for nausea or vomiting Take 30 minutes prior to oral chemotherapy then every 8 hours as needed up to 3 doses in 24 hours if prochlorperazine does not stop nausea. 24 tablet 3 05/20/20 24 Active prochlorperazi ne (Compazine) 10 mg tabletIndicati ons:Glioblasto ma ([facility]) Take 1 tablet (10 mg total) by mouth every 6 (six) hours as needed for nausea or vomiting Use first for nausea 120 tablet 3 05/20/20 24 Active amLODIPine (NORVASC) 10 mg tablet Take 1 tablet (10 mg total) by mouth daily Active gabapentin (NEURONTIN) 300 mg capsuleIndicat ions:Glioblast ulysses ([facility]) Take 1 capsule (300 mg total) by mouth 3 (three) times a day 90 capsule 11 08/27/19 25 Active temozolomide (TEMODAR) 250 mg capsuleIndicat ions:Glioblast ulysses ([facility]) Take 2 capsules (500 mg) by mouth daily for 5 days. Take on days 1-5 every 28 days. 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 Baseline weakness due to affects of GBM, continue supportive care, notify provider for change in condition. Localized swelling on right hand 07/28/2022 Assessment & Plan (07/28/2022 8:16 PM PROGRAM STRATEGIST): Increase in edema to R hand, presume positional and is edematous at baseline. compression wrap applied by me on exam, assisted to reposition RUE sling, continue to elevate while resting, PT/OT as tolerated, no concern for cellulitis or clot, compartment is soft Functional diarrhea 06/27/2022 Assessment & Plan (06/27/2022 10:18 AM PROGRAM STRATEGIST): HARPER b.i.elsa marshall, notify provider for acute abdominal pain, bloody stools or fever Leg edema, right 06/11/2022 Assessment & Plan (06/11/2022 5:06 AM PROGRAM STRATEGIST): No DVT. Start patient on Bactrim. Continue Lasix 40 mg for now continue 1 tab, as patient creatinine 1.6. Monitor symptoms, labs Primary insomnia 05/29/2022 Assessment & Plan (05/29/2022 11:01 AM PROGRAM STRATEGIST): Try melatonin 10 mg nightly. Polyneuropathy associated with underlying diseas e 05/02/2022 Assessment & Plan (05/22/2022 9:21 AM PROGRAM STRATEGIST): Continue Cymbalta 30 mg, Neurontin 300 mg b.i.d.. Assessment & Plan (05/02/2022 6:22 AM CDT): Continue Cymbalta 30 mg, Neurontin 300 mg b.i.d. Lumbar degenerative disc disease 02/23/2022 Speech and language deficits 11/01/2021 Assessment & Plan (08/24/2022 12:46 PM PROGRAM STRATEGIST): Improving with ST Getting ready to transition to assisted living Apraxia of speech 11/01/2021 Assessment & Plan (05/22/2022 9:20 AM PROGRAM STRATEGIST): Patient need to get FEES. Has been ordered from [facility]. Need to confirm with family Assessment & Plan (05/18/2022 10:26 AM PROGRAM STRATEGIST): FEES ordered at [facility] but unable to obtain. Recommend Outpt ST eval & treat with FEEs. Have placed ordered for d/c. Family will need to transport. Assessment & Plan (05/14/2022 11:40 AM PROGRAM STRATEGIST): Waiting on FEEs to be scheduled. Assessment & Plan (05/11/2022 11:52 AM PROGRAM STRATEGIST): Concerns with vocal cord atrophy to R side. Have ordered FEES to assess. 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 Decadron, seizure prophylaxis, denies headache or change in symptoms, does well with therapy and participates in care, continue supportive measures, follow-up with Neuro- Oncology Assessment & Plan (07/28/2022 8:17 PM PROGRAM STRATEGIST): remains with R sided weakness and expressive aphasia, able to self propel WC and participate in care, cont PT/OT, decadron daily. Sz prophylaxis, nsgy f/u Assessment & Plan (07/24/2022 11:21 AM PROGRAM STRATEGIST): Pt of Dr. Gomez at [facility] - s/p 06/30/2018, gross total resection of left parietal tumor. Surgeon Dr. Penaloza. Pathology: - GBM, MGMT promoter methylated, EGFR amplified, monosomic loss of PTEN. Continue seizure prophylaxis, decadron, BP management, repeat BMP to monitor sodium, pain control denies CARPENTER PT OT HATCHERY HELPER following Assessment & Plan (06/11/2022 5:08 AM PROGRAM STRATEGIST): Continue dexamethasone 8 mg a.m. and 4 mg p.m., [place], [place]. Patient had appointment with Dr. Hernandez on 06/07, now started on Bactrim every other day. Brain MRI scheduled for 06/17/2022. Next follow-up with Dr. Hernandez on 06/21/2022 Assessment & Plan (05/22/2022 9:12 AM PROGRAM STRATEGIST): Pt is s/p 06/30/2018, gross total resection of left parietal tumor, per surgeon Dr. Penaloza. Completed radiation therapy, on Avastin + Optune device since October 2018, w/C5 on 04/05/22. Follow up with Dr. Stevens in [facility]. Now rec dexamethasone 8 mg in AM and 4 mg in PM. To continue antiseizure medication, aggressively treat hypertension Assessment & Plan (05/18/2022 10:26 AM PROGRAM STRATEGIST): Continue antiseizure meds & Dexamethasone. Outpt Onc f/u. Assessment & Plan (05/02/2022 6:23 AM CDT): Pt is s/p 06/30/2018, gross total resection of left parietal tumor, per surgeon Dr. Penaloza. Completed radiation therapy, on Avastin + Optune device since October 2018, w/C5 on 04/05/22. Follow up with Dr. Stevens in [facility]. Now rec dexamethasone 8 mg in AM and 4 mg in PM. To continue antiseizure medication, aggressively treat hypertension Stage 3a chronic kidney disease 08/23/2021 Assessment & Plan (06/11/2022 5:09 AM PROGRAM STRATEGIST): Creatinine improved from 1.7 to 1.6. Will repeat renal function on 06/19, as patient going to start Bactrim Assessment & Plan (05/29/2022 11:05 AM PROGRAM STRATEGIST): Creatinine 1.7. Repeat labs on 06/04 Assessment & Plan (05/22/2022 9:18 AM PROGRAM STRATEGIST): Creatinine stable at 1.4. Avoid nephrotoxic drugs, monitor renal function. Assessment & Plan (05/14/2022 11:40 AM PROGRAM STRATEGIST): Cr stable. Assessment & Plan (05/07/2022 12:16 PM PROGRAM STRATEGIST): Improved. At baseline. Continue to montior. Assessment & Plan (05/04/2022 11:20 AM CDT): At baseline. See above. Assessment & Plan (05/02/2022 6:22 AM CDT): Creatinine 1.6-1.8. Avoid nephrotoxic drugs. Monitor renal function Essential (primary) hypertension 08/23/2021 Assessment & Plan (08/06/2022 10:33 AM PROGRAM STRATEGIST): BP logs reviewed and stable, continue daily clonidine and Norvasc for BP goal less than 150 over less than 90 Assessment & Plan (05/22/2022 9:13 AM PROGRAM STRATEGIST): BP fluctuates. Cont clonidine 0.05mg bid, HCTZ 25 mg and amlodipine 10 mg. We will add hydralazine 25 mg t.i.d. with parameters if remains elevated. Monitor blood pressure, adjust meds accordingly Assessment & Plan (05/18/2022 10:27 AM PROGRAM STRATEGIST): BP stable with fluctuation. Continue to monitor. May need to increase Clonidine if remains elevated outpt. Assessment & Plan (05/14/2022 11:37 AM PROGRAM STRATEGIST): BP continues to remain elevated. Hydralazine increased Saturday. Monitor. Assessment & Plan (05/11/2022 12:01 PM PROGRAM STRATEGIST): BP remains high. Increase Hydralazine. Assessment & Plan (05/07/2022 12:12 PM PROGRAM STRATEGIST): BP elevated still, increase Hydralazine. Monitor. Assessment [...] 11/11/2018 Assessment & Plan (07/09/2022 12:17 PM PROGRAM STRATEGIST): Follows with Neurosurgery, Medical Oncology, continue PT/OT, remains with expressive aphasia and left-sided weakness able to participate in care and assist with ADLs, feed self Continue seizure prophylaxis, daily Decadron Left parietal glioblastoma multiforme, MGMT promoter methylated, EGFR amplified, monosomy of PTEN Dx 05/2018 s/p resection, proton therapy, temodar. Follows with Dr Stevens Assessment & Plan (06/27/2022 10:17 AM PROGRAM STRATEGIST): Continue b.i.d. Decadron with prophylactic Bactrim and seizure prophylaxis, PT/OT, assist with mobility and transfers, swallow appropriate at this time Assessment & Plan (03/21/2021 7:19 PM CDT): L parietal GBM. Dx 05/2018 s/p resection, proton therapy, temodar. Currently on [place] Carbon Fiber (GLCF), follows with Rodney. -hold Optune -Med Onc c/s in AM -bMRI pending Assessment & Plan (03/19/2021 2:46 PM CDT): Left parietal glioblastoma multiforme, MGMT promoter methylated, EGFR amplified, monosomy of PTEN Dx 05/2018 s/p resection, proton therapy, temodar. Follows with Dr Stevens -currently on Optune, HOLD while [facility] -bMRI 03/13 was largely stable, repeat bMRI planned for 05/2021 -med onc consult Assessment & Plan (11/11/2018 8:57 AM CDT): Seeing NUS, under current treatment, weight loss, fatigue, some nausea Seizure disorder (CMS/HCC) 11/11/2018 Assessment & Plan (05/29/2022 11:03 AM PROGRAM STRATEGIST): Keppra level elevated to 50, continue Keppra [...] HCT stable L-parietal changes and likely prominent F-cslef-cgbof subarachnoid space over SDH Neurology consulted:- Suspect [...] 07/09/2018 Assessment & Plan (08/24/2022 12:46 PM PROGRAM STRATEGIST): Per oncology GERD (gastroesophageal reflux disease) 8 [...] 10/17/2015 Assessment & Plan (08/24/2022 12:46 PM PROGRAM STRATEGIST): D/c Sliding scale insulin Continue metformin and 10units basal insulin with close glucose monitoring May adjust basal or add back set mealtime insulin if needed Assessment & Plan (08/06/2022 10:31 AM PROGRAM STRATEGIST): Glucose logs reviewed, improved with addition of a.m. Lantus, continue 20 units HS and 5 units in a.m. with mealtime SSI, metformin, weekly Trulicity. Accu-Cheks a.c. and HS, continues on long-term p.o. steroids Assessment & Plan (07/28/2022 8:18 PM PROGRAM STRATEGIST): Hyperglycemia with steroid dosing, cont BID lantus with mealtime ssi, accuechecks ac and hs Assessment & Plan (07/24/2022 11:31 AM PROGRAM STRATEGIST): Remains with intermittent hyperglycemia, Lantus increased to 20 units HS and 5 units in a.m. continue lispro with meals, weekly Trulicity Assessment & Plan (07/09/2022 12:18 PM PROGRAM STRATEGIST): Glucose logs reviewed and noted persistent hyperglycemia, continue Trulicity, will increase HS Lantus again, continue mealtime SSI with Accu-Cheks a.c. and HS Assessment & Plan (06/27/2022 10:19 AM PROGRAM STRATEGIST): Increase HS Lantus 18 units, 8 units lispro with meals, Accu-Cheks AC and HS Assessment & Plan (06/06/2022 2:23 PM PROGRAM STRATEGIST): BG in 304 0s. Will increase Lantus from 10 units to 14 units bedtime, lispro 6 units t.i.d. with meals, will resume home med Trulicity 1 5 mg every saturday of the week. Monitor Accu-Cheks Assessment & Plan (05/22/2022 9:17 AM PROGRAM STRATEGIST): A1c 7 on 08/24/2021. Continue Lantus 10 units nighttime, lispro 6 units t.i.d. with meal. Monitor Accu-Cheks. Assessment & Plan (05/18/2022 10:24 AM PROGRAM STRATEGIST): A1c 7 08/24/21. BS 106-250. Continues on Lantus 10u + Lispro 6u Assessment & Plan (05/14/2022 11:39 AM PROGRAM STRATEGIST): BS 98-283. Good control with current regimen. Continue to monitor. Assessment & Plan (05/11/2022 11:55 AM PROGRAM STRATEGIST): BS 100-319. Currently on Basaglar 32u + [...] anemia Assessment & Plan (06/06/2022 2:25 PM PROGRAM STRATEGIST): Hemoglobin has been significantly improved to 11.4. Continue to monitor Assessment & Plan (05/14/2022 11:40 AM PROGRAM STRATEGIST): H&H stable. Expressive aphasia Assessment & Plan (07/24/2022 11:32 AM PROGRAM STRATEGIST): Intermittent, improving, follows with HATCHERY HELPER, swallow is appropriate, continue supportive care Assessment & Plan (07/17/2022 9:16 AM PROGRAM STRATEGIST): Making slow progress with his speech. Always tries to do more conversation and improve himself. Continue ST. Assessment & Plan (05/18/2022 10:27 AM PROGRAM STRATEGIST): Much improved. SEE ABOVE. Assessment & Plan (05/07/2022 12:16 PM PROGRAM STRATEGIST): Increased phlegm improved with flonase. Pt to continue work with HATCHERY HELPER. Assessment & Plan (05/04/2022 11:21 AM CDT): Feels has increase phelgm causing voice change also. Denies coughing or ST. Will add on flonase to help with any inflammation. HATCHERY HELPER working with patient. Morbid (severe) obesity due to excess calories Mixed hyperlipidemia Generalized weakness Assessment & Plan (05/14/2022 11:40 AM PROGRAM STRATEGIST): Continue PT/OT. Assessment & Plan (05/11/2022 11:52 AM PROGRAM STRATEGIST): Continue PT/OT. H/O craniotomy Resolved Problems Problem Noted Date Diagnosed Date Resolved Date Hyperkalemia 05/03/2022 05/14/2022 Assessment & Plan (05/07/2022 12:15 PM PROGRAM STRATEGIST): [facility] Assessment & Plan (05/04/2022 11:19 AM CDT): 5.0. Unsure of cause? Trending down. Recheck labs Saturday. Stable on exam. Assessment & Plan (05/03/2022 4:23 AM CDT): Potassium 5.2. Will repeat BMP 05/03 Hypertensive urgency 04/20/2022 022 Right foot pain 12/21/2021 05/04/2022 Seizure disorder 08/23/2021 08/24/2022 Assessment & Plan (07/17/2022 9:21 AM PROGRAM STRATEGIST): Remains stable, no seizure activity noticed. Continue Keppra 2000 mg b.i.d., oxcarbazepine 300 mg b.i.d.. Follow up neurosurgeon outpatient Assessment & Plan (05/22/2022 9:12 AM PROGRAM STRATEGIST): Started in 2019 with R sided weakness and word finding difficulty. EEG now also showed left temporal region cortical irritability. To cont keppra 2000 mg bid, Oxcarbazepine 300 mg bid. seizure precautions. Follows up with neurosurgeon Dr. Penaloza Type 2 diabetes mellitus, [facility] long-term current use of insulin 08/23/2021 [...] 07/02/201808/2018 Assessment & Plan (07/03/2018 12:03 PM PROGRAM STRATEGIST): Requires intensive QID monitoring to avoid hypo and hyperlgycemia Assessment & Plan (07/02/2018 5:02 PM PROGRAM STRATEGIST): Requires intensive QID monitoring to avoid hypo and hyperlgycemia Uncontrolled type 2 diabetes with neuropathy 9 10/30/2018 Assessment & Plan (07/04/2018 12:53 PM PROGRAM STRATEGIST): Overall control adequate per patient report, but [...] HDSSI Assessment & Plan (07/02/2018 5:07 PM PROGRAM STRATEGIST): Overall control adequate per patient report, but [...] 10/30/2018 Assessment & Plan (07/03/2018 12:02 PM PROGRAM STRATEGIST): Requirement for high dose steroids complicates glycemic [...] STOP Assessment & Plan (07/02/2018 5:01 PM PROGRAM STRATEGIST): Requirement for high dose steroids complicates glycemic [...] 2 Assessment & Plan (05/07/2022 12:15 PM PROGRAM STRATEGIST): Stable on current regimen. Assessment & Plan (05/04/2022 11:17 AM CDT): Will add on colace BID & miralax PRN, continue senna BID. Monitor closely. Other PRNs available. Encounters Date Type Department Care Team Description 09/24/2024 12:40 PM CDT Office Visit [facility] Oncology [facility] Floor 1, [address] [place] [id number] Travon Stevens MD Glioblastoma (HCC) (Primary Dx) 09/24/2024 11:45 AM CDT Lab [facility] [place] - Lab Collection [address] [facility] [place] [place] Floor [address] [place] [address] Glioblastoma (HCC) 09/24/2024 11:30 AM CDT Lab [facility] Oncology Lab [facility] Floor 5 [place] [address] Glioblastoma (HCC) 09/22/2024 Orders Only [facility] Oncology [facility] [address] [place] [address] Travon Stevens MD 08/27/2024 1:00 PM PROGRAM STRATEGIST Office Visit [facility] Oncology [facility] Floor 1, [address] [place] [address] Travon Stevens MD Glioblastoma (HCC) (Primary Dx) 08/27/2024 12:15 PM PROGRAM STRATEGIST Lab [facility] [place] - Lab Collection [address] [facility] Floor 5 [place] [address] Glioblastoma (HCC) 08/27/2024 12:00 PM PROGRAM STRATEGIST Lab [facility] Oncology Lab [facility] Floor 5 [place] [address] Glioblastoma (HCC) 08/27/2024 Orders Only [facility] Oncology [address] [place] [address] Floor 1, [address] [place] [address] Emory Alcazar RN Glioblastoma (HCC) (Primary Dx); Localized edema 08/27/2024 Orders Only [facility] Neurosurgery [facility] Floor 1, [address] [place] [address] Travon Stevens MD 08/25/2024 1:16 PM PROGRAM STRATEGIST - 08/25/2024 11:59 PM [facility] [address] [place] [id number] Travon Stevens MD Glioblastoma (HCC) Discharge Disposition: Discharge to home or self care 07/31/2024 Orders Only [facility] Oncology [address] [place] [address] Floor 1, [address] [place] [address] Travon Stevens MD 07/30/2024 2:20 PM PROGRAM STRATEGIST Office Visit [facility] Oncology [address] [place] [address] Floor 1, [address] [place] [address] Travon Stevens MD Glioblastoma (HCC) (Primary Dx); Flaccid hemiplegia affecting right dominant side, unspecified etiology (HCC); Seizure disorder (HCC); Type 2 diabetes mellitus with stage 3b chronic kidney disease, with long-term current use of insulin (HCC); Morbid (severe) obesity due to excess calories (HCC) 07/30/2024 1:30 PM PROGRAM STRATEGIST Lab [facility] [place] - Lab Collection [address] [facility] [place] [place] Floor [address] [place] [address] Glioblastoma (HCC) 07/30/2024 1:15 PM PROGRAM STRATEGIST Lab [facility] Oncology Lab [address] [facility] Floor 5 [place] [address] Glioblastoma (HCC) from Last 3 Months Immunizations Immunization Administration [...] Status Comments Brother Alive Father (Age 72y) [place] Maternal Grandfather Maternal Grandmother Mother Alive Paternal [...] often do you attend chur ch or scientology services? Never 09/18/2022 Do you belong to any clubs o r organizations such as yazdanism groups, unions, fraternal or athletic groups, or [...] place to sleep or slept in a chcf (including now)? No 09/18/2022 Personal Safety Answer Date Recorded Have you ever been in or are you currently in a harmful physical or emotional relationship or is someone making you feel afraid or unsafe? 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 Not on file Not on file Obstetrics History Last Filed Vital Signs Vital Sign Reading Time Taken Comments Blood Pressure 131/80 08/27/2024 12:46 PM PROGRAM STRATEGIST Pulse 100 08/27/2024 12:46 PM PROGRAM STRATEGIST Temperature 36.8 C (98.2 F) 08/27/2024 12:46 PM PROGRAM STRATEGIST Respiratory Rate 17 08/27/2024 12:46 PM PROGRAM STRATEGIST Oxygen Saturation 100% 08/27/2024 12:46 PM PROGRAM STRATEGIST Inhaled Oxygen Concentration - - Weight 119.7 kg (264 lb) 08/27/2024 12:46 PM PROGRAM STRATEGIST Height 180.3 cm (5' 10.98 ) 08/27/2024 12:46 PM PROGRAM STRATEGIST Body Mass Index 36.84 08/27/2024 12:46 PM PROGRAM STRATEGIST Plan of Treatment Health Maintenance Due Date [...] history exists Medical Devices Implanted Type Area Underwear Trimmer Device Identifier Shelf Expiration Date Model / Serial / Lot Integra [employer] Tiff [id number] Duragen Plus 7.5x7.5cm Patch Resorbable Suturable Cranial Dura Graft - [id number] Implanted:Qty: 1 on 06/30/2018 by Deshawn Penaloza MD at [facility] Aneurysm Coils Left: Brain Integra [employer]iences Tiff 02/28/2021 [id number] / / [id number] Synthes 04.503.023 Matrixneuro 17mm .4mm Craniomaxillofacial Cover [place] - [id number] Implanted:Qty: 4 on 06/30/2018 by Deshawn Penaloza MD at [facility] Plate Left: Cranial Synthes I 04.503. 023 / / Synthes 400.834 1.6mm 2.9mm 4mm Self Drill Self Retain Low Profile Cruciform - [id number] Implanted:Qty: 23 on 06/30/2018 by Deshawn Penaloza MD at [facility] Screw Left: Cranial Synthes I 400.834 [...] Glioblastoma (HCC) EGFR Routine 08/27/2024 12:12 PM PROGRAM STRATEGIST Glioblastoma (HCC) DIFFERENTIAL AUTO Routine 08/27/2024 12: 12 PM PROGRAM STRATEGIST Glioblastoma (HCC) CBC WITH AUTO DIFFERENTIAL Routine 08/27/2024 12:12 PM PROGRAM STRATEGIST Glioblastoma (HCC) COMPREHENSIVE METABOLIC PANEL Routine 08/27/2024 12:12 PM PROGRAM STRATEGIST Glioblastoma (HCC) T-HELPER CELLS (CD4) COUNT Routine 08/27/2024 12:12 PM PROGRAM STRATEGIST Glioblastoma (HCC) MRI BRAIN W WO CONTRAST Schedule Routine, Read Routine (OP Routine) 08/25/2024 3:03 PM PROGRAM STRATEGIST Glioblastoma (HCC) EGFR Routine 07/30/2024 1:28 PM PROGRAM STRATEGIST Glioblastoma (HCC) MANUAL DIFFERENTIAL Routine 07/30/2024 1 :28 PM PROGRAM STRATEGIST Glioblastoma (HCC) DIFFERENTIAL AUTO Routine 07/30/2024 1:2 8 PM PROGRAM STRATEGIST Glioblastoma (HCC) CBC WITH AUTO DIFFERENTIAL Routine 07/30/2024 1:28 PM PROGRAM STRATEGIST Glioblastoma (HCC) COMPREHENSIVE METABOLIC PANEL Routine 07/30/2024 1:28 PM PROGRAM STRATEGIST Glioblastoma (HCC) T-HELPER CELLS (CD4) COUNT Routine 07/30/2024 1:28 PM PROGRAM STRATEGIST Glioblastoma (HCC) HEMOGLOBIN A1C Routine 09/18/2022 6:31 AM CDT LIPID PANEL Routine 08/24/2021 2:54 AM PROGRAM STRATEGIST DIABETIC EYE EXAM Routine 02/22/2021 PSA SCREEN Routine 07/23/2020 11:01 AM PROGRAM STRATEGIST Type 2 diabetes mellitus without complication, without [...] MD LAB BLOOD ORDERABLES Olga michele Result [facility] [place] [address] * (ABNORMAL) CBC with auto differential (09/24/2024 11:41 AM CDT) WBC 10.3(H) 3.8 - 9.9 K/cumm Comment:Testing performed by : [facility], [address] [place] [address] Hgb 10.5(L) 13.0 - 17.5 g/dL C[facility]ER [facility] Comment:Testing performed by : [facility], [address] [place] [address] Hct 32.1(L) 38.9 - 50.3 % [facility]ER [facility] Comment:Testing performed by : [facility], [address] [place] [address] Plt 220 150 - 400 K/cumm CERMAGDA [facility]J Comment:Testing performed by : [facility], [address] [place] [address] MPV 6.8 6.8 - 10.4 fL CERNER [facility] Comment:Testing performed by : [facility], [address] [place] [address] RBC 3.60(L) 4.30 - 5.80 M/cumm C[facility]ER [facility] Comment:Testing performed by : [facility], [address] [place] [address] MCV 89.3 81.3 - 96.4 fL [facility] Comment:Testing performed by : [facility], [address] [place] [address] MCH 29.3 27.1 - 33.3 pg CERNER [facility]J Comment:Testing performed by : [facility], [address] [place] [address] MCHC 32.8 32.3 - 35.7 g/dL CERNER [facility] Comment:Testing performed by : [facility], [address] [place], [place] [address] RDW CV 19.6(H) 11.1 - 14.9 % CERMAGDA BJ Comment:Testing performed by : [facility], [address] [place] [address] NRBC abs 0.00 0.00 - 0.01 K/cumm CERMAGDA BJ Comment:Testing performed by : [facility], [address] [place] [address] Blood 09/24/2024 11:4 1 AM CDT 09/24/2024 11:42 AM CDT Travon Stevens MD LAB BLOOD ORDERABLES Edit ed Result - Final SARAH PERALTA [facility] [place] [address] * (ABNORMAL) Manual Differential (09/24/2024 11:41 AM CDT) Cells Counted 200 Comment:Testing performed by : [facility], [address] [place] [address] Neutrophil abs 8.7(H) 1.5 - 6.5 K/cumm CERMAGDA BJ Comment:Testing performed by : [facility], [address] [place] [address] Lymphocyte abs 0.8 0.8 - 3.3 K/cumm CERMAGDA BJ Comment:Testing performed by : [facility], [address] [place] [address] Monocyte abs 0.8 0.2 - 0.8 K/cumm CERMAGDA BJ Comment:Testing performed by : [facility], [address] [place] [address] Eosinophil abs 0.1 0.0 - 0.5 K/cumm CERMAGDA BJ Comment:Testing performed by : [facility], [address] [place] [address] Basophil abs 0.0 0.0 - 0.1 K/cumm CERMAGDA BJ Comment:Testing performed by : [facility], [address] [place] [phone] Neutrophil pct 84.0 % C[facility]ER [facility] Comment: Interpretive Data Percent cell count reference ranges are not reported, since discordance with absolute values may lead to misinterpretation of CBC data. Current Interpretive Data was last revised on 2017. Testing performed by: [facility], [address] [place] [phone] Lymphocyte pct 8.0 % [facility] Comment: Interpretive Data Percent cell count reference ranges are not reported, since discordance with absolute values may lead to misinterpretation of CBC data. Current Interpretive Data was last revised on 2017. Testing performed by: [facility], [address] [place] [phone] Monocyte pct 8.0 % [facility] Comment: Interpretive Data Percent cell count reference ranges are not reported, since discordance with absolute values may lead to misinterpretation of CBC data. Current Interpretive Data was last revised on 2017. Testing performed by: [facility], [address] [place] [phone] Eosinophil pct 1.0 % [facility] Comment: Interpretive Data Percent cell count reference ranges are not reported, since discordance with absolute values may lead to misinterpretation of CBC data. Current Interpretive Data was last revised on 2017. Testing performed by: [facility], [address] [place] [phone] Basophil pct 0.0 % [facility] Comment: Interpretive Data Percent cell count reference ranges are not reported, since discordance with absolute values may lead to misinterpretation of CBC data. Current Interpretive Data was last revised on 2017. Testing performed by: [facility], [address] [place] [phone] Anisocytosis 1+(A) [facility] Comment:Testing performed by : [facility], [address] [place], [place] [phone] Platelet estimate Adequate [facility] Comment:Testing performed by : [facility], [address] [place] [phone] Blood 09/24/2024 11:4 1 AM CDT 09/24/2024 11:42 AM CDT Travon Stevens MD LAB BLOOD ORDERABLES Olga l Result Performing Organization Address [facility] de Phone Number [facility] [place] [address] * (ABNORMAL) T-helper cells (CD4) count (09/24/2024 11:41 AM CDT) Pathologist [facility] CD4 pct 67(H) 31 - 64 % Comment:Ran twice. CD4 Absolute 361(L) 365 - 1,294 cells/mcL [facility] Comment:Ran twice. Blood 09/24/2024 11:4 1 AM CDT 09/24/2024 12:32 PM CDT Travon Stevens MD LAB BLOOD ORDERABLES Olga l Result Performing Organization Address [facility] de Phone Number [facility] [place] [address] * (ABNORMAL) Comprehensive metabolic panel (09/24/2024 11:41 AM CDT) Pathologist [facility] Sodium 142 135 - 145 mmol/L Potassium, pl 4.1 3.3 - 4.9 mmol/L [facility] Chloride 104 97 - 110 mmol/L [facility] CO2 29 22 - 32 mmol/L [facility] Anion gap 9 2 - 15 mmol/L [facility] BUN 28(H) 6 - 25 mg/dL [facility] Creatinine 1.42(H) 0.80 - 1.30 mg/dL [facility] Glucose 189 70 - 199 mg/dL [facility] Comment: Interpretive Data Fasting glucose >/= [...] Calcium 9.4 8.5 - 10.3 mg/dL CERNER [facility] Bilirubin, total <0.2 0.1 - 1.2 mg/dL CERNER [facility] Protein, pl 6.9 6.5 - 8.5 g/dL CERNER [facility] Albumin 3.9 3.5 - 5.0 g/dL CERNER [facility] Alk phos 62 40 - 130 Units/L CERNER [facility] ALT 20 7 - 55 Units/L C[facility]ER [facility] AST 15 10 - 50 Units/L CERNER [facility] Blood 09/24/2024 11:4 1 AM CDT 09/24/2024 11:47 AM CDT Travon Stevens MD LAB BLOOD ORDERABLES Olga l Result [facility] [place] [address] * (ABNORMAL) eGFR (08/27/2024 12:12 PM PROGRAM STRATEGIST) eGFR 51(L) >=60 mL/min/1. 73 m2 Comment: [...] reviewed 2021. Blood 08/27/2024 12:1 2 PM PROGRAM STRATEGIST 08/27/2024 12:18 PM PROGRAM STRATEGIST Travon Stevens MD LAB BLOOD ORDERABLES Olga ryne Result [facility] [place] [address] * (ABNORMAL) Differential, auto (08/27/2024 12:12 PM PROGRAM STRATEGIST) Neutrophil abs 10.4(H) 1.5 - 6.5 K/cumm Comment:Testing performed by : [facility], [address] [place] [phone] Lymphocyte abs 0.2(L) 0.8 - 3.3 K/cumm CERNER [facility] Comment:Testing performed by : [facility], [address] [place] [phone] Monocyte abs 0.6 0.2 - 0.8 K/cumm CERNER [facility] Comment:Testing performed by : [facility], [address] [place] [phone] Eosinophil abs 0.0 0.0 - 0.5 K/cumm CERNER [facility] Comment:Testing performed by : [facility], [address] [place] [phone] Basophil abs 0.0 0.0 - 0.1 K/cumm CERNER [facility] Comment:Testing performed by : [facility], [address] [place] [phone] Neutrophil pct 92.8 % CERNER BJ Comment: Interpretive Data Percent cell count reference ranges are not reported, since discordance with absolute values may lead to misinterpretation of CBC data. Current Interpretive Data was last revised on 2017. Testing performed by: [facility], [address] [place] [phone] Lymphocyte pct 1.9 % CERNER [facility] Comment: Interpretive Data Percent cell count reference ranges are not reported, since discordance with absolute values may lead to misinterpretation of CBC data. Current Interpretive Data was last revised on 2017. Testing performed by: [facility], [address] [place] [phone] Monocyte pct 4.9 % SARAH PERALTA Comment: Interpretive Data Percent cell count reference ranges are not reported, since discordance with absolute values may lead to misinterpretation of CBC data. Current Interpretive Data was last revised on 2017. Testing performed by: [facility], [address] [place], [place] [phone] Eosinophil pct 0.2 % SARAH PERALTA Comment: Interpretive Data Percent cell count reference ranges are not reported, since discordance with absolute values may lead to misinterpretation of CBC data. Current Interpretive Data was last revised on 2017. Testing performed by: [facility], [address] [place], [place] [phone] Basophil pct 0.2 % SARAH PERALTA Comment: Interpretive Data Percent cell count reference ranges are not reported, since discordance with absolute values may lead to misinterpretation of CBC data. Current Interpretive Data was last revised on 2017. Testing performed by: [facility], [address] [place] [phone] Blood 08/27/2024 12:1 2 PM PROGRAM STRATEGIST 08/27/2024 12:16 PM PROGRAM STRATEGIST Travon Stevens MD LAB BLOOD ORDERABLES Olga l Result SARAH PERALTA [facility] [place] [address] * (ABNORMAL) CBC with auto differential (08/27/2024 12:12 PM PROGRAM STRATEGIST) WBC 11.2(H) 3.8 - 9.9 K/cumm Comment:Testing performed by : [facility], [address] [place] [phone] Hgb 11.0(L) 13.0 - 17.5 g/dL CERNER BJ Comment:Testing performed by : [facility], [address] [place], [place] [phone] Hct 33.9(L) 38.9 - 50.3 % CERNER BJ Comment:Testing performed by : [facility], [address] [place], [place] [phone] Plt 163 150 - 400 K/cumm CERNER BJ Comment:Testing performed by : [facility], [address] [place], [place] [phone] MPV 6.8 6.8 - 10.4 fL CERNER BJ Comment:Testing performed by : [facility], [address] [place], [place] [phone] RBC 3.86(L) 4.30 - 5.80 M/cumm CERNER BJ Comment:Testing performed by : [facility], [address] [place], [place] [phone] MCV 87.8 81.3 - 96.4 fL CERNER BJ Comment:Testing performed by : [facility], [address] [place], [place] [phone] MCH 28.5 27.1 - 33.3 pg CERNER BJ Comment:Testing performed by : [facility], [address] [place], [place] [phone] MCHC 32.4 32.3 - 35.7 g/dL CERNER BJ Comment:Testing performed by : [facility], [address] [place], [place] [phone] RDW CV 17.1(H) 11.1 - 14.9 % CERNER BJ Comment:Testing performed by : [facility], [address] [place], [place] [phone] NRBC abs 0.00 0.00 - 0.01 K/cumm CERNER BJ Comment:Testing performed by : [facility], [address] [place], [place] [phone] Blood 08/27/2024 12:1 2 PM PROGRAM STRATEGIST 08/27/2024 12:16 PM PROGRAM STRATEGIST Travon Stevens MD LAB BLOOD ORDERABLES Olga l Result Performing Organization Address City/[facility]/ZIP Co de Phone Number [facility] [place] [address] * (ABNORMAL) T-helper cells (CD4) count (08/27/2024 12:12 PM PROGRAM STRATEGIST) Pathologist [facility] CD4 pct 60 31 - 64 % CD4 Absolute 150(L) 365 - 1,294 cells/mcL [facility] Blood 08/27/2024 12:1 2 PM PROGRAM STRATEGIST 08/27/2024 1:31 PM PROGRAM STRATEGIST Travon Stevens MD LAB BLOOD ORDERABLES Olga l Result Performing Organization Address [facility] Co de Phone Number [facility] [place] [address] * (ABNORMAL) Comprehensive metabolic panel (08/27/2024 12:12 PM PROGRAM STRATEGIST) Pathologist [facility] Sodium 143 135 - 145 mmol/L Potassium, pl 4.3 3.3 - 4.9 mmol/L [facility] Chloride 104 97 - 110 mmol/L [facility] CO2 32 22 - 32 mmol/L [facility] Anion gap 7 2 - 15 mmol/L [facility] BUN 31(H) 6 - 25 mg/dL [facility] Creatinine 1.50(H) 0.80 - 1.30 mg/dL [facility] Glucose 206(H) 70 - 199 mg/dL [facility] Comment: Interpretive Data Fasting glucose >/= [...] Calcium 9.4 8.5 - 10.3 mg/dL CERNER [facility] Bilirubin, total 0.2 0.1 - 1.2 mg/dL CERNER [facility] Protein, pl 7.0 6.5 - 8.5 g/dL CERNER BJ Albumin 4.0 3.5 - 5.0 g/dL CERNER [facility] Alk phos 66 40 - 130 Units/L CERNER BJ ALT 27 7 - 55 Units/L CERNER BJ AST 16 10 - 50 Units/L CERNER [facility] Blood 08/27/2024 12:1 2 PM PROGRAM STRATEGIST 08/27/2024 12:18 PM PROGRAM STRATEGIST Travon Stevens MD LAB BLOOD ORDERABLES Olga Result [facility] [place] [address] * MRI Brain W WO Contrast (08/25/2024 3:03 PM PROGRAM STRATEGIST) Anatomical Region Laterality Modality Head and Neck N/A Magnetic Resonan ce 08/25/2024 5:49 PM PROGRAM STRATEGIST Impressions 08/25/2024 5:49 PM PROGRAM STRATEGIST Postoperative findings with marked interval increase in size of masslike enhancement within the left parieto-occipital lobe and elevated relative cerebral blood volume along the periphery of this region of signal abnormality, compatible with progression of residual disease. 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 TECHNIQUE: Multiplanar multi-weighted [...] disease. Electronically signed by: Silvio Dudley MD [facility] Delonte Stevens MD IMG MRI PROCEDURES Final Result * (ABNORMAL) eGFR (07/30/2024 1:28 PM PROGRAM STRATEGIST) eGFR 50(L) >=60 mL/min/1. 73 m2 Comment: [...] last reviewed 2021. Blood 07/30/2024 1:28 PM PROGRAM STRATEGIST 07/30/2024 1:31 PM PROGRAM STRATEGIST Travon Stevens MD LAB BLOOD ORDERABLES Olga ryne Result [facility] [place] [address] * (ABNORMAL) Differential, auto (07/30/2024 1:28 PM PROGRAM STRATEGIST) Neutrophil abs 10.8(H) 1.5 - 6.5 K/cumm Comment: See updated manual differential results Testing performed by: [facility], [address] [place], [place] [phone] Lymphocyte abs 0.5(L) 0.8 - 3.3 K/cumm CERNER BJ Comment: See updated manual differential results Testing performed by: [facility], [address] [place] [phone] Monocyte abs 0.4 0.2 - 0.8 K/cumm CERNER BJ Comment: See updated manual differential results Testing performed by: [facility], [address] [place] [phone] Eosinophil abs 0.0 0.0 - 0.5 K/cumm CERNER BJ Comment: See updated manual differential results Testing performed by: [facility], [address] [place] [phone] Basophil abs 0.0 0.0 - 0.1 K/cumm CERNER BJ Comment: See updated manual differential results Testing performed by: [facility], [address] [place] [phone] Neutrophil pct 91.9 % CERNER BJ Comment: See updated manual differential results Interpretive Data Percent cell count reference ranges are not reported, since discordance with absolute values may lead to misinterpretation of CBC data. Current Interpretive Data was last revised on 2017. Testing performed by: [facility], [address] [place] [phone] Lymphocyte pct 4.1 % CERMAGDA PERALTA Comment: See updated manual differential results Interpretive Data Percent cell count reference ranges are not reported, since discordance with absolute values may lead to misinterpretation of CBC data. Current Interpretive Data was last revised on 2017. Testing performed by: [facility], [facility] [place] [address] Monocyte pct 3.6 % CERMAGDA PERALTA Comment: See updated manual differential results Interpretive Data Percent cell count reference ranges are not reported, since discordance with absolute values may lead to misinterpretation of CBC data. Current Interpretive Data was last revised on 2017. Testing performed by: [facility], [address] [place] [phone] Eosinophil pct 0.1 % CERMAGDA PERALTA Comment: See updated manual differential results Interpretive Data Percent cell count reference ranges are not reported, since discordance with absolute values may lead to misinterpretation of CBC data. Current Interpretive Data was last revised on 2017. Testing performed by: [facility], [facility] [place] [address] Basophil pct 0.3 % SARAH PERALTA Comment: See updated manual differential results Interpretive Data Percent cell count reference ranges are not reported, since discordance with absolute values may lead to misinterpretation of CBC data. Current Interpretive Data was last revised on 2017. Testing performed by: [facility], [address] [place] [phone] Blood 07/30/2024 1:28 PM PROGRAM STRATEGIST 07/30/2024 1:30 PM PROGRAM STRATEGIST us Travon Stevens MD LAB BLOOD ORDERABLES Edit ed Result - Final SARAH SUMMERS [facility] [place] [address] * (ABNORMAL) CBC with auto differential (07/30/2024 1:28 PM PROGRAM STRATEGIST) WBC 11.8(H) 3.8 - 9.9 K/cumm Comment:Testing performed by : [facility], [address] [place], [place] [phone] Hgb 11.4(L) 13.0 - 17.5 g/dL CERNER BJ Comment:Testing performed by : [facility], [address] [place], [place] [phone] Hct 35.6(L) 38.9 - 50.3 % CERNER BJ Comment:Testing performed by : [facility], [address] [place], [place] [phone] Plt 275 150 - 400 K/cumm CERNER BJ Comment:Testing performed by : [facility], [address] [place], [place] [phone] MPV 6.8 6.8 - 10.4 fL CERNER BJ Comment:Testing performed by : [facility], [address] [place], [place] [phone] RBC 4.04(L) 4.30 - 5.80 M/cumm CERNER BJ Comment:Testing performed by : [facility], [address] [place] [address] MCV 88.1 81.3 - 96.4 fL CERNER BJ Comment:Testing performed by : [facility], [address] [place], [place] [phone] MCH 28.3 27.1 - 33.3 pg CERNER BJ Comment:Testing performed by : [facility], [address] [place] [address] MCHC 32.1(L) 32.3 - 35.7 g/dL CERNER BJ Comment:Testing performed by : [facility], [address] [place] [address] RDW CV 15.9(H) 11.1 - 14.9 % CERNER BJ Comment:Testing performed by : [facility], [address] [place], [place] [phone] NRBC abs 0.00 0.00 - 0.01 K/cumm CERNER BJ Comment:Testing performed by : [facility], [address] [place] [phone] Blood 07/30/2024 1:28 PM PROGRAM STRATEGIST 07/30/2024 1:30 PM PROGRAM STRATEGIST Travon Stevens MD LAB BLOOD ORDERABLES Edit ed Result - Final [facility] [place] [address] * (ABNORMAL) Manual Differential (07/30/2024 1:28 PM PROGRAM STRATEGIST) Cells Counted 200 Comment:Testing performed by : [facility], [address] [place] [phone] Neutrophil abs 10.7(H) 1.5 - 6.5 K/cumm CERNER BJ Comment:Testing performed by : [facility], [address] [place], [place] [phone] Lymphocyte abs 0.4(L) 0.8 - 3.3 K/cumm CERNER BJ Comment:Testing performed by : [facility], [address] [place], [place] [phone] Monocyte abs 0.4 0.2 - 0.8 K/cumm CERNER BJ Comment:Testing performed by : [facility], [address] [place] [address] Eosinophil abs 0.1 0.0 - 0.5 K/cumm CERNER BJ Comment:Testing performed by : [facility], [address] [place], [place] [phone] Basophil abs 0.0 0.0 - 0.1 K/cumm CERNER BJ Comment:Testing performed by : [facility], [address] [place] [address] Neutrophil pct 91.0 % CERNER BJ Comment: Interpretive Data Percent cell count reference ranges are not reported, since discordance with absolute values may lead to misinterpretation of CBC data. Current Interpretive Data was last revised on 2017. Testing performed by: [facility], [address] [place] [phone] Lymphocyte pct 3.0 % [facility] Comment: Interpretive Data Percent cell count reference ranges are not reported, since discordance with absolute values may lead to misinterpretation of CBC data. Current Interpretive Data was last revised on 2017. Testing performed by: [facility], [address] [place] [phone] Monocyte pct 3.0 % [facility] Comment: Interpretive Data Percent cell count reference ranges are not reported, since discordance with absolute values may lead to misinterpretation of CBC data. Current Interpretive Data was last revised on 2017. Testing performed by: [facility], [address] [place] [phone] Eosinophil pct 1.0 % [facility] Comment: Interpretive Data Percent cell count reference ranges are not reported, since discordance with absolute values may lead to misinterpretation of CBC data. Current Interpretive Data was last revised on 2017. Testing performed by: [facility], [address] [place] [phone] Basophil pct 0.0 % [facility] Comment: Interpretive Data Percent cell count reference ranges are not reported, since discordance with absolute values may lead to misinterpretation of CBC data. Current Interpretive Data was last revised on 2017. Testing performed by: [facility], [address] [place] [phone] Metamyelocyte pct 1.0 % [facility] Comment:Testing performed by : [facility], [address] [place] [phone] Myelocyte pct 1.0 % [facility] Comment:Testing performed by : [facility], [address] [place] [phone] Promyelocyte pct 1.0 % [facility] Comment:Testing performed by : [facility], [address] [place] [phone] Variant lymph pct 1.0 % [facility]ER [facility] Comment:Testing performed by : [facility], [address] [place] [phone] Polychromasia 1+(A) SARAH PERALTA Comment:Testing performed by : [facility], [address] [place] [phone] Anisocytosis 1+(A) SARAH [facility] Comment:Testing performed by : [facility], [address] [place] [phone] Poikilocytosis 1+(A) SARAH [facility] Comment:Testing performed by : [facility], [address] [place] [phone] Microcytes 1+(A) SARAH [facility] Comment:Testing performed by : [facility], [address] [place] [phone] Elliptocytes 1+(A) SARAH [facility] Comment:Testing performed by : [facility], [address] [place] [phone] Teardrop cells 1+(A) SARAH [facility] Comment:Testing performed by : [facility], [address] [place] [phone] Platelet estimate Adequate SARAH [facility] Comment:Testing performed by : [facility], [address] [place] [phone] Giant platelets Present(A) SARAH [facility] Comment:Testing performed by : [facility], [address] [place] [phone] Blood 07/30/2024 1:28 PM PROGRAM STRATEGIST 07/30/2024 1:30 PM PROGRAM STRATEGIST us Travon Stevens MD LAB BLOOD ORDERABLES Olga l Result [facility] Department of Laboratories [place], [place] [id number] * (ABNORMAL) T-helper cells (CD4) count (07/30/2024 1:28 PM PROGRAM STRATEGIST) CD4 pct 45 31 - 64 % CD4 Absolute 221(L) 365 - 1,294 cells/mcL SARAH PERALTA Blood 07/30/2024 1:28 PM PROGRAM STRATEGIST 07/30/2024 5:14 PM PROGRAM STRATEGIST Travon Stevens MD LAB BLOOD ORDERABLES Olga ryne Result [facility] [place] [address] * (ABNORMAL) Comprehensive metabolic panel (07/30/2024 1:28 PM PROGRAM STRATEGIST) Sodium 143 135 - 145 mmol/L Potassium, pl 4.1 3.3 - 4.9 mmol/L [facility] Chloride 104 97 - 110 mmol/L [facility] CO2 32 22 - 32 mmol/L [facility] Anion gap 7 2 - 15 mmol/L [facility] BUN 38(H) 6 - 25 mg/dL [facility] Creatinine 1.54(H) 0.80 - 1.30 mg/dL [facility] Glucose 161 70 - 199 mg/dL [facility] Comment: Interpretive Data Fasting glucose >/= [...] 2022. Calcium 9.0 8.5 - 10.3 mg/dL [facility] Bilirubin, total 0.2 0.1 - 1.2 mg/dL [facility] Protein, pl 6.8 6.5 - 8.5 g/dL [facility] Albumin 3.5 3.5 - 5.0 g/dL [facility] Alk phos 79 40 - 130 Units/L [facility] ALT 27 7 - 55 Units/L [facility] AST 25 10 - 50 Units/L [facility] Blood 07/30/2024 1:28 PM PROGRAM STRATEGIST 07/30/2024 1:31 PM PROGRAM STRATEGIST us Travon Stevens MD LAB BLOOD ORDERABLES Olga l Result SARAH PERALTAH [facility] [place] [address] * (ABNORMAL) Hemoglobin A1c (09/18/2022 6:31 AM CDT) Hgb A1C 8.3(H) 4.0 - 5.6 % SARAH Estimated Average Glucose 192 mg/dL SARAH Comment: The ADA recommends reporting an estimated Average Glucose (eAG) with all Hemoglobin A1c results using the equation derived from a study of 507 normal and diabetic adults. Minority populations were underrepresented and children were not included. (Diabetes Care 31:0858-3100, 2008). The eAG is not equivalent to a fasting glucose. Blood 09/18/2022 6:31 AM CDT 09/18/2022 6:58 AM CDT us Enrique Castro MD LAB BLOOD ORDERABLES Final Re sult [facility] [address] [facility] Department [place] [address] * (ABNORMAL) Lipid panel (08/24/2021 2:54 AM PROGRAM STRATEGIST) Cholesterol 166 30 - 199 mg/dL SARAH [...] ratio 5 SARAH Blood 08/24/2021 2:54 AM PROGRAM STRATEGIST 08/24/2021 3:09 AM PROGRAM STRATEGIST Monik Jimenez MD LAB BLOOD ORDERABLES Final Result Performing Organization Address [facility]/ZIP Co de Phone Number SARAH [address] [facility] Department of Laboratories [place] [phone] * Diabetic Eye Exam (02/22/2021) 02/22/2021 Terri Provider HEALTH MAINTENANCE Final Result * PSA screen (07/23/2020 11:01 AM PROGRAM STRATEGIST) PSA 0.5 0.0 - 4.0 ng/mL [facility] - 01 Comment: Juli ECLIA methodology. According to the [employer], Serum PSA should decrease and [...] disease. Blood specimen (specimen) 07/23/2020 11:01 AM PROGRAM STRATEGIST 07/23/2020 Narrative [facility] - 07/25/2020 7:35 AM PROGRAM STRATEGIST Performed at: [address] [id number] [employer] Yard Supervisor: Marlon Knowles PhD, Phone: [phone] Lan Doss MD LAB BLOOD ORDERABLES Final Re sult Performing Organization Address [facility]/ZIP Co de Phone Number [facility] * Colonoscopy (08/23/2014) Anatomical Region Laterality Modality Other us Historical Provider ENDOSCOPY PROCEDURES Olga l Result from Last 3 Months or Most Recently Relevant to Health Maintenance Insurance MEDICARE [facility] MEDICARE [facility] MEDICARE SUPPLEMENT MEDICARE [facility] Address: [id number] [place] [address] [facility] MEDICARE SUPPLEMENT Advance Directives For more information, please contact: [phone] Documents on File Type Date Recorded 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
--- OUTSIDE RECORDS SUMMARY | 2024-10-17 14:07 | XMS_ITS ---
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 Baseline weakness due to affects of GBM, continue supportive care, notify provider for change in condition. Localized swelling on right hand 07/28/2022 Assessment & Plan (07/28/2022 8:16 PM RAD TECH): Increase in edema to R hand, presume positional and is edematous at baseline. compression wrap applied by me on exam, assisted to reposition RUE sling, continue to elevate while resting, PT/OT as tolerated, no concern for cellulitis or clot, compartment is soft Functional diarrhea 06/27/2022 Assessment & Plan (06/27/2022 10:18 AM RAD TECH): DC b.i.d. rolando, notify provider for acute abdominal pain, bloody stools or fever Leg edema, right 06/11/2022 Assessment & Plan (06/11/2022 5:06 AM RAD TECH): No DVT. Start patient on Bactrim. Continue Lasix 40 mg for now continue 1 tab, as patient creatinine 1.6. Monitor symptoms, labs Primary insomnia 05/29/2022 Assessment & Plan (05/29/2022 11:01 AM RAD TECH): Try melatonin 10 mg nightly. Polyneuropathy associated with underlying diseas e 05/02/2022 Assessment & Plan (05/22/2022 9:21 AM RAD TECH): Continue Cymbalta 30 mg, Neurontin 300 mg b.i.d.. Assessment & Plan (05/02/2022 6:22 AM CDT): Continue Cymbalta 30 mg, Neurontin 300 mg b.i.d. Lumbar degenerative disc disease 02/23/2022 Speech and language deficits 11/01/2021 Assessment & Plan (08/24/2022 12:46 PM RAD TECH): Improving with ST Getting ready to transition to assisted living Apraxia of speech 11/01/2021 Assessment & Plan (05/22/2022 9:20 AM RAD TECH): Patient need to get FEES. Has been ordered from [facility]. Need to confirm with family Assessment & Plan (05/18/2022 10:26 AM RAD TECH): FEES ordered at [facility] but unable to obtain. Recommend Outpt ST eval & treat with FEEs. Have placed ordered for d/c. Family will need to transport. Assessment & Plan (05/14/2022 11:40 AM RAD TECH): Waiting on FEEs to be scheduled. Assessment & Plan (05/11/2022 11:52 AM RAD TECH): Concerns with vocal cord atrophy to R side. Have ordered FEES to assess. 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 Decadron, seizure prophylaxis, denies headache or change in symptoms, does well with therapy and participates in care, continue supportive measures, follow-up with Neuro- Oncology Assessment & Plan (07/28/2022 8:17 PM RAD TECH): remains with R sided weakness and expressive aphasia, able to self propel WC and participate in care, cont PT/OT, decadron daily. Sz prophylaxis, nsgy f/u Assessment & Plan (07/24/2022 11:21 AM RAD TECH): Pt of Dr. Gomez at [facility] - s/p 06/30/2018, gross total resection of left parietal tumor. Surgeon Dr. Penaloza. Pathology: - GBM, MGMT promoter methylated, EGFR amplified, monosomic loss of PTEN. Continue seizure prophylaxis, decadron, BP management, repeat BMP to monitor sodium, pain control denies CARPENTER PT OT INSTRUMENT/CONTROL TECHNICIAN following Assessment & Plan (06/11/2022 5:08 AM RAD TECH): Continue dexamethasone 8 mg a.m. and 4 mg p.m., Trileptal, Keppra. Patient had appointment with Dr. Hernandez on 06/07, now started on Bactrim every other day. Brain MRI scheduled for 06/17/2022. Next follow-up with Dr. Hernandez on 06/21/2022 Assessment & Plan (05/22/2022 9:12 AM RAD TECH): Pt is s/p 06/30/2018, gross total resection of left parietal tumor, per surgeon Dr. Penaloza. Completed radiation therapy, on Avastin + Optune device since October 2018, w/C5 on 04/05/22. Follow up with Dr. Stevens in [facility]. Now rec dexamethasone 8 mg in AM and 4 mg in PM. To continue antiseizure medication, aggressively treat hypertension Assessment & Plan (05/18/2022 10:26 AM RAD TECH): Continue antiseizure meds & Dexamethasone. Outpt Onc f/u. Assessment & Plan (05/02/2022 6:23 AM CDT): Pt is s/p 06/30/2018, gross total resection of left parietal tumor, per surgeon Dr. Penaloza. Completed radiation therapy, on Avastin + Optune device since October 2018, w/C5 on 04/05/22. Follow up with Dr. Stevens in [facility]. Now rec dexamethasone 8 mg in AM and 4 mg in PM. To continue antiseizure medication, aggressively treat hypertension Stage 3a chronic kidney disease 08/23/2021 Assessment & Plan (06/11/2022 5:09 AM RAD TECH): Creatinine improved from 1.7 to 1.6. Will repeat renal function on 06/19, as patient going to start Bactrim Assessment & Plan (05/29/2022 11:05 AM RAD TECH): Creatinine 1.7. Repeat labs on 06/04 Assessment & Plan (05/22/2022 9:18 AM RAD TECH): Creatinine stable at 1.4. Avoid nephrotoxic drugs, monitor renal function. Assessment & Plan (05/14/2022 11:40 AM RAD TECH): Cr stable. Assessment & Plan (05/07/2022 12:16 PM RAD TECH): Improved. At baseline. Continue to montior. Assessment & Plan (05/04/2022 11:20 AM CDT): At baseline. See above. Assessment & Plan (05/02/2022 6:22 AM CDT): Creatinine 1.6-1.8. Avoid nephrotoxic drugs. Monitor renal function Essential (primary) hypertension 08/23/2021 Assessment & Plan (08/06/2022 10:33 AM RAD TECH): BP logs reviewed and stable, continue daily clonidine and Norvasc for BP goal less than 150 over less than 90 Assessment & Plan (05/22/2022 9:13 AM RAD TECH): BP fluctuates. Cont clonidine 0.05mg bid, HCTZ 25 mg and amlodipine 10 mg. We will add hydralazine 25 mg t.i.d. with parameters if remains elevated. Monitor blood pressure, adjust meds accordingly Assessment & Plan (05/18/2022 10:27 AM RAD TECH): BP stable with fluctuation. Continue to monitor. May need to increase Clonidine if remains elevated outpt. Assessment & Plan (05/14/2022 11:37 AM RAD TECH): BP continues to remain elevated. Hydralazine increased Saturday. Monitor. Assessment & Plan (05/11/2022 12:01 PM RAD TECH): BP remains high. Increase Hydralazine. Assessment & Plan (05/07/2022 12:12 PM RAD TECH): BP elevated still, increase Hydralazine. Monitor. Assessment [...] 11/11/2018 Assessment & Plan (07/09/2022 12:17 PM RAD TECH): Follows with Neurosurgery, Medical Oncology, continue PT/OT, remains with expressive aphasia and left-sided weakness able to participate in care and assist with ADLs, feed self Continue seizure prophylaxis, daily Decadron Left parietal glioblastoma multiforme, MGMT promoter methylated, EGFR amplified, monosomy of PTEN Dx 05/2018 s/p resection, proton therapy, temodar. Follows with Dr Stevens Assessment & Plan (06/27/2022 10:17 AM RAD TECH): Continue b.i.d. Decadron with prophylactic Bactrim and [...] Dr Stevens -[facility] largely stable, repeat bMRI planned for 05/2021 -med onc consult Assessment & Plan (11/11/2018 8:57 AM CDT): Seeing NUS, under current treatment, weight loss, fatigue, some nausea Seizure disorder (CMS/HCC) 11/11/2018 Assessment & Plan (05/29/2022 11:03 AM RAD TECH): Keppra level elevated to 50, continue Keppra [...] HCT stable L-parietal changes and likely prominent [id number] subarachnoid space over SDH Neurology consulted:- Suspect [...] 07/09/2018 Assessment & Plan (08/24/2022 12:46 PM RAD TECH): Per oncology GERD (gastroesophageal reflux disease) 8 [...] 10/17/2015 Assessment & Plan (08/24/2022 12:46 PM RAD TECH): D/c Sliding scale insulin Continue metformin and 10units basal insulin with close glucose monitoring May adjust basal or add back set mealtime insulin if needed Assessment & Plan (08/06/2022 10:31 AM RAD TECH): Glucose logs reviewed, improved with addition of a.m. Lantus, continue 20 units HS and 5 units in a.m. with mealtime SSI, metformin, weekly Trulicity. Accu-Cheks a.c. and HS, continues on long-term p.o. steroids Assessment & Plan (07/28/2022 8:18 PM RAD TECH): Hyperglycemia with steroid dosing, cont BID lantus with mealtime ssi, accuechecks ac and hs Assessment & Plan (07/24/2022 11:31 AM RAD TECH): Remains with intermittent hyperglycemia, Lantus increased to 20 units HS and 5 units in a.m. continue lispro with meals, weekly Trulicity Assessment & Plan (07/09/2022 12:18 PM RAD TECH): Glucose logs reviewed and noted persistent hyperglycemia, continue Trulicity, will increase HS Lantus again, continue mealtime SSI with Accu-Cheks a.c. and HS Assessment & Plan (06/27/2022 10:19 AM RAD TECH): Increase HS Lantus 18 units, 8 units lispro with meals, Accu-Cheks AC and HS Assessment & Plan (06/06/2022 2:23 PM RAD TECH): BG in 304 0s. Will increase Lantus from 10 units to 14 units bedtime, lispro 6 units t.i.d. with meals, will resume home med Trulicity 1 5 mg every saturday of the week. Monitor Accu-Cheks Assessment & Plan (05/22/2022 9:17 AM RAD TECH): A1c 7 on 08/24/2021. Continue Lantus 10 units nighttime, lispro 6 units t.i.d. with meal. Monitor Accu-Cheks. Assessment & Plan (05/18/2022 10:24 AM RAD TECH): A1c 7 08/24/21. BS 106-250. Continues on Lantus 10u + Lispro 6u Assessment & Plan (05/14/2022 11:39 AM RAD TECH): BS 98-283. Good control with current regimen. Continue to monitor. Assessment & Plan (05/11/2022 11:55 AM RAD TECH): BS 100-319. Currently on Basaglar 32u + [...] anemia Assessment & Plan (06/06/2022 2:25 PM RAD TECH): Hemoglobin has been significantly improved to 11.4. Continue to monitor Assessment & Plan (05/14/2022 11:40 AM RAD TECH): H&H stable. Expressive aphasia Assessment & Plan (07/24/2022 11:32 AM RAD TECH): Intermittent, improving, follows with INSTRUMENT/CONTROL TECHNICIAN, swallow is appropriate, continue supportive care Assessment & Plan (07/17/2022 9:16 AM RAD TECH): Making slow progress with his speech. Always tries to do more conversation and improve himself. Continue ST. Assessment & Plan (05/18/2022 10:27 AM RAD TECH): Much improved. SEE ABOVE. Assessment & Plan (05/07/2022 12:16 PM RAD TECH): Increased phlegm improved with flonase. Pt to continue work with INSTRUMENT/CONTROL TECHNICIAN. Assessment & Plan (05/04/2022 11:21 AM CDT): Feels has increase phelgm causing voice change also. Denies coughing or ST. Will add on flonase to help with any inflammation. INSTRUMENT/CONTROL TECHNICIAN working with patient. Morbid (severe) obesity due to excess calories Mixed hyperlipidemia Generalized weakness Assessment & Plan (05/14/2022 11:40 AM RAD TECH): Continue PT/OT. Assessment & Plan (05/11/2022 11:52 AM RAD TECH): Continue PT/OT. H/O craniotomy Current Treatment and [...] 05/14/2022 Assessment & Plan (05/07/2022 12:15 PM RAD TECH): Improved. Continue to montior. Assessment & Plan (05/04/2022 11:19 AM CDT): 5.0. Unsure of cause? Trending down. Recheck labs Saturday. Stable on exam. Assessment & Plan (05/03/2022 4:23 AM CDT): Potassium 5.2. Will repeat BMP 05/03 Hypertensive urgency 04/20/2022 022 Right foot pain 12/21/2021 05/04/2022 Seizure disorder 08/23/2021 08/24/2022 Assessment & Plan (07/17/2022 9:21 AM RAD TECH): Remains stable, no seizure activity noticed. Continue Keppra 2000 mg b.i.d., oxcarbazepine 300 mg b.i.d.. Follow up neurosurgeon outpatient Assessment & Plan (05/22/2022 9:12 AM RAD TECH): Started in 2019 with R sided weakness and word finding difficulty. EEG now also showed left temporal region cortical irritability. To cont keppra 2000 mg bid, Oxcarbazepine 300 mg bid. seizure precautions. Follows up with neurosurgeon Dr. Penaloza Type 2 diabetes mellitus, [facility] long-term current use of insulin 08/23/2021 05/18/2022 [...] 07/02/201808/2018 Assessment & Plan (07/03/2018 12:03 PM RAD TECH): Requires intensive QID monitoring to avoid hypo and hyperlgycemia Assessment & Plan (07/02/2018 5:02 PM RAD TECH): Requires intensive QID monitoring to avoid hypo and hyperlgycemia Uncontrolled type 2 diabetes with neuropathy 9 10/30/2018 Assessment & Plan (07/04/2018 12:53 PM RAD TECH): Overall control adequate per patient report, but [...] HDSSI Assessment & Plan (07/02/2018 5:07 PM RAD TECH): Overall control adequate per patient report, but [...] 10/30/2018 Assessment & Plan (07/03/2018 12:02 PM RAD TECH): Requirement for high dose steroids complicates glycemic [...] STOP Assessment & Plan (07/02/2018 5:01 PM RAD TECH): Requirement for high dose steroids complicates glycemic [...] constipation Assessment & Plan (05/07/2022 12:15 PM RAD TECH): Stable on current regimen. Assessment & Plan (05/04/2022 11:17 AM CDT): Will add on colace BID & miralax PRN, continue senna BID. Monitor closely. Other PRNs available.
--- OUTSIDE RECORDS SUMMARY | 2024-10-17 14:09 | XMS_ITS | Encounter Summary ---
Author Organization [facility] Healthcare Address [address] [place] [address] Care Team Providers Care Moth Proofer Name Role Phone Lan Doss MD Primary Care Provider [phone] Lan Doss MD Unavailable [phone] Travon Stevens MD Unavailable Deshawn Penaloza MD Unavailable [phone] Jen Ramos LPN Unavailable Encounter Details Date Type Department Care Team (Late st Contact Info) Description 01/26/2022 Telephone [facility] [address] [place], [place] [id number] Deshawn Penaloza MD [address] [facility] [address] [place] [address] Social History Tobacco Use Types Packs/Day Years [...] on file Legal Sex Male 7:15 PM CAN CAPPER Gender Identity Not on file Sexual Orientation Straight 08/31/2021 4: 21 PM CAN CAPPER 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 Not on file Not on file documented as of this encounter Plan of Treatment Not on file documented as of this encounter Visit Diagnoses Not on filedocumented in this encounter Care Teams Moth Proofer Relationship Specialty Start Date End Date Lan Doss MD PCP - General Family Medicine 08/23/21 Lan Doss MD 08/23/21 Travon Stevens MD Medical Oncologist/Director Pharmacovigilance Medical Oncology 11/11/18 Deshawn Penaloza MD Surgeon Neurosurgery 01/23/19 Jen Ramos, FUNDER [address] [place] [address] Dr Diaz [address] [place] [id number] [employer] 09/06/22 09/16/22 documented as of this encounter
--- OUTSIDE RECORDS SUMMARY | 2024-10-17 14:09 | XMS_ITS ---
Author Name Carlos Enrique Taylor Address [address] [facility] [address] [place] [address] Phone [phone] [employer] Address [address] [place] [address] Phone [phone] Care Team Providers Care Claim Processing Specialist Name Role Phone Carlos Enrique Taylor Unavailable [phone] Functional Status No Results Mental Status No Results Allergies and Intolerances Name Onset Date Reaction Severity No Known Allergies (Allergy) SatOctober 30 03:54:00 EDT 2022 Encounters Program Name Primary Diagnosis Admission Date/Time Dis charge Date/Time 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 DM nurse admin freestyle sensor every 2 weeks. rotate sites Samantha Mar 19 07:00:00 EDT 2023 [facility] Apr 02 11:03:00 EDT 2023 TubersoL 5 [...] Daily for 7 Days Indication: weight loss CLINICAL QUALITY RN Supervision: give 2 hours AFTER breakfast SatJan 03 01:00:00 2023Jan 04 07:17:00 2023 phentermine 30 mg capsule 1 capsule CAPS ULE Oral 1 Time Daily for 83 Days Indication: weight lossCNA Supervision: give 2 hours AFTER breakfast SatJan 10 01:00:00 2023Jan 04 07:17:00 2023 potassium chloride ER 20 mEq tablet,extended release(part/cryst) 1 tablet TABLET, EXT RELEASE, PARTICLES/CRYSTALS Oral 1 Time Daily Indication: hypokalemia CLINICAL QUALITY RN supervision x1 SatJan 01 01:00:00 2023Mar 06 01:00:00 2023 metFORMIN 500 mg tablet 1 tab TABLET Ora l 2 Times Daily Indication: DM CLINICAL QUALITY RN supervision x1 x4 SatDec 28 01:00:00 2023Mar 06 01:00:00 2023 metOLazone 10 mg tablet 1 tablet TABLET Oral 1 Time Daily for 10 Days Indication: weight gain CLINICAL QUALITY RN supervision. GIVE 30 MINUTES PRIOR TO FUROSEMIDE SatDec 18 13:00:00 2023Dec 28 12:59:00 2023 furosemide 20 mg tablet 1 TABLET Oral 1 Time Daily for 14 Days Indication: edema CLINICAL QUALITY RN to supervise x1 SatNovember 25:00:00 EDT 2023Dec 09 00:59:00 EDT 2023 Blood Pressure Kit 1 KIT Other 8 Times Daily Indication: Toilet Scheduled Q2hrs during the day CLINICAL QUALITY RN to take SatOctober 29 16:45:00 EDT 2023Mar [...] admin freestyle sensor every 2 weeks. rotate [facility] SatAug 11 11:00:00 EST 2023 18:08:00 EST 2023 FreeStyle Luis 2 Sensor kit 1 kit KIT Topical Every 2 Weeks Indication: DM nurse admin freestyle sensor every 2 weeks. rotate [facility] SatAug 11 10:01:00 EST 2023Aug 11 12:30:00 EST 2023 FreeStyle Luis 2 Sensor kit 1 kit KIT Topical Every 2 Weeks Indication: DM nurse admin freestyle sensor every 2 weeks. rotate [facility] SatJul 10 07:00:00 EST 2023Aug 08 10:02:00 EST 2023 FreeStyle Luis 2 Sensor kit 1 kit KIT Topical Every 2 Weeks Indication: DM nurse admin freestyle sensor every 2 weeks. 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 supervision [employer] x1 SatJun 15 07:00:00 EST 2022Mar 06 [...] COATED) Oral 1 Time Daily Indication: constipation CLINICAL QUALITY RN supervision x1 SatJun 15 01:00:00 EST 2022Mar 06 01:00:00 EDT 2023 calcium carbonate 500 mg calcium (1,250 mg) chewable tablet 1 tab TABLET,CHEWABLE Oral 1 Time Daily Indication: Supplement CLINICAL QUALITY RN Supervision [employer] Instructor x1 SatJun 15 07:00:00 2022Mar 06 01:00:00 [...] 1 Time Weekly Indication: Vitamin D deficiency CLINICAL QUALITY RN Supervision [employer] Instructor x1 SatJun 21 07:00:00 EST 2022Mar 06 01:00:00 EDT 2023 potassium chloride ER 10 mEq tablet,extended release 1 tab Oral 1 Time Daily Indication: Dx: Hypokalemia CLINICAL QUALITY RN Supervision [employer] Instructor x1 SatJun 15 07:00:00 EST 2022Dec 31 19:11:00 EDT 2023 levETIRAcetam 1,000 mg tablet 1 tab Oral 2 Times Daily Indication: Seizure History CLINICAL QUALITY RN Supervision [employer]urs[employer] Instructor x1 Early Evening x4 SatJun 14 16:45:00 EST 2022Mar 06 01:00:00 EDT 2023 levETIRAcetam 500 mg tablet 1 tab TABLET Oral 2 Times Daily Indication: Seizure History CLINICAL QUALITY RN Supervision Outdoor [employer]urs[employer] Instructor x1 Early Evening x4 SatJun 14 16:48:00 [...] Or al 3 Times Daily Indication: HTN CLINICAL QUALITY RN supervision x1, x2, x4 SatJun 14 16:00:00 [...] 11:00:00 2022Jun 14 01:00:00 EST 2022 Nasal Bunola (sodium chloride) 0.65 % aerosol 1 spray [...] KIT Other 2 Times Monthly Indication: Vitals CLINICAL QUALITY RN supervision, CLINICAL QUALITY RN obtain the vitals SatMay 08 12:23:00 2022Mar [...] Daily Indication: DM nurse admin x1 x2 [id number] Scale Insulin: Insulin Units> 400, Notify ;151-200, 1 Units;201-250, 2 Units;251-300, 4 Units;301-350, 6 Units;351-400, 8 Units;. SatMay 08 12:28:00 2022Jun 14 16:33:00 2022 multivitamin tablet 1 TABLET Oral 2 Time s Daily Indication: vitamin CLINICAL QUALITY RN supervision x1 x4 SatMay 08 12:29:00 EST [...] TABLET Oral 1 Time Daily Indication: supplement CLINICAL QUALITY RN supervision x1two 500mcg tabs = 1,000mcg total [...] 8 Weeks Indication: Weight Gain Weekly weight [address] ONLY SatApr 18 01:00:00 EDT 2022Jun 13 00:59:00 EST 2022 FreeStyle Luis 2 Sensor kit 1 kit KIT Topical Every 2 Weeks Indication: DM change freestyle sensor every 2 weeks. rotate sites SatApr 09 11:53:00 EDT 2022Apr 23 09:54:00 EDT 2022 furosemide 40 mg tablet 1 tab TABLET Ora l 2 Times Daily for 7 Days Indication: edema CLINICAL QUALITY RN supervision x1, x3 SatApr 03 01:00:00 EDT 2022Apr 10 00:59:00 EDT 2022 furosemide 40 mg tablet 1 tab TABLET Ora l 1 Time Daily Indication: edema CLINICAL QUALITY RN supervision x1 SatApr 10 01:00:00 EDT 2022Apr 16 15:53:00 EDT 2022 cyanocobalamin (vit B-12) 500 mcg tablet 1 tab TABLET Oral 1 Time Daily Indication: supplement CLINICAL QUALITY RN x12 500mcg tabs = 1,000mcg total SatMar [...] change freestyle sensor every 2 weeks. rotate [facility] SatFeb 03 07:00:00 EDT 2022Feb 27 07:28:00 EDT 2022 FreeStyle Luis 2 Sensor kit 1 kit KIT Topical Every 2 Weeks Indication: DM change freestyle sensor every 2 weeks. rotate [facility] SatFeb 04 01:00:00 EDT 2022Feb 04 18:43:00 EDT 2022 FreeStyle Luis 2 Sensor kit 1 kit KIT Topical Every 2 Weeks Indication: DM change freestyle sensor every 2 weeks. rotate [facility] SatFeb 02 01:00:00 EDT 2022Feb 02 15:29:00 EDT 2022 acetaminophen 325 mg tablet 2 tabs TABLE T Oral 4 Times Daily Indication: pain CLINICAL QUALITY RN supervision x1, x2, x3, & x4 SatJan 10 01:00:00 EDT 2022Jun 14 16:14:00 EST 2022 FreeStyle Luis 2 Sensor kit 1 kit KIT Topical Every 2 Weeks Indication: DM change freestyle sensor every 2 weeks. rotate [facility] SatDec 20 01:00:00 EDT 2022Jan 31 [...] T Oral 1 Time Daily Indication: pain CLINICAL QUALITY RN x 4 SatDec 06 07:00:00 EDT 2022Jan [...] LET Oral 2 Times Daily Indication: HTN CLINICAL QUALITY RN supervision x1 x4 SatDec 05 20:41:00 EDT 2022Mar 06 01:00:00 EDT 2023 multivitamin tablet 1 TABLET Oral 2 Time s Daily Indication: vitamin CLINICAL QUALITY RN x1 x4 SatDec 06 01:00:00 EDT 2022May [...] Oral 2 Times Daily Indication: metabolic encephalopathy CLINICAL QUALITY RN x1 x4 SatNovember 23 01:00:00 EDT 2022May [...] KIT Other 2 Times Monthly Indication: Vitals CLINICAL QUALITY RN obtain the vitals SatNovember 16 01:00:00 EDT [...] TABLET Oral 1 Time Daily Indication: HTN CLINICAL QUALITY RN supervision x 1 SatOctober 30 17:30:00 EDT 2022Mar 06 01:00:00 EDT 2023 cloNIDine HCL 0.1 mg tablet 1/2 tablet T ABLET Oral 2 Times Daily Indication: HTN CLINICAL QUALITY RN supervision x1 x4 SatOctober 30 17:30:00 EDT 2022Dec 05 20:42:00 EDT 2022 dexAMETHasone 6 mg tablet 1 tablet TABLE T Oral 1 Time Daily Indication: Metabolic Encephalopathy CLINICAL QUALITY RN supervision x1 SatOctober 30 17:30:00 EDT 2022Mar 06 01:00:00 EDT 2023 bisacodyL 5 mg tablet,delayed release 2 tabs TABLET, DELAYED RELEASE (ENTERIC COATED) Oral 1 Time Daily Indication: constipation CLINICAL QUALITY RN supervision x4 SatOctober 30 17:30:00 EDT 2022Jun 14 16:16:00 EST 2022 DULoxetine 30 mg capsule,delayed release 1 capsule CAPSULE,DELAYED RELEASE (ENTERIC COATED) Oral 1 Time Daily Indication: anxiety CLINICAL QUALITY RN supervision x1 SatOctober 30 17:30:00 EDT 2022Mar 06 01:00:00 EDT 2023 enoxaparin 40 mg/0.4 mL subcutaneous syringe 0.4mL SYRINGE (ML) Subcutaneous 1 Time Daily Indication: prevent blood clots Nurse administration SatOctober 30 17:30:00 EDT 2022November 22 21:25:00 EDT 2022 famotidine 20 mg tablet 1 tab TABLET Ora l 1 Time Daily Indication: GERD CLINICAL QUALITY RN supervision x1 SatOctober 30 17:30:00 EDT 2022Mar 06 01:00:00 EDT 2023 fluticasone propionate 50 mcg/actuation nasal spray,suspension 1 spray SPRAY, SUSPENSION Intranasal - Both Nostrils PRN 2 Times Daily Indication: allergies Nurse administration SatOctober 30 17:30:00 ED2022Jun 14 17:09:00 EST 2022 furosemide 40 mg tablet 1/2 tab TABLET O ral 1 Time Daily Indication: edema CLINICAL QUALITY RN Supervision x11/2 tab = 20mg SatOctober 30 17:40:00 EDT 2022Apr 02 20:24:00 EDT 2022 gabapentin 300 mg capsule 1 capsule CAPS ULE Oral 2 Times Daily Indication: diabetic neuropathy CLINICAL QUALITY RN Supervision x1, x4 SatOctober 30 17:30:00 EDT 2022Mar 06 01:00:00 EDT 2023 hydrALAZINE 50 mg tablet 1 tab TABLET Or al 3 Times Daily Indication: HTN CLINICAL QUALITY RN supervision x1, x2, x3 SatOctober 30 17:30:00 EDT 2022Jun 14 20:03:00 EST 2022 levETIRAcetam 1,000 mg tablet 2 tabs TABLET Oral 2 Times Daily Indication: seizures CLINICAL QUALITY RN supervision x1, x3 SatOctober 30 17:30:00 EDT 2022Jun 14 16:45:00 EST 2022 magnesium oxide 400 mg (241.3 mg magnesium) tablet 1 tab TABLET Oral 1 Time Daily Indication: GERD CLINICAL QUALITY RN supervision x1 SatOctober 30 17:30:00 EDT 2022Mar 06 01:00:00 EDT 2023 OXcarbazepine 300 mg tablet 1 tab TABLET Oral 2 Times Daily Indication: seizures CLINICAL QUALITY RN supervision x1, x4 SatOctober 30 17:30:00 EDT 2022Mar 06 01:00:00 EDT 2023 polyethylene glycoL 3350 17 gram/dose oral powder 17 grams POWDER (GRAM) Oral PRN 1 Time Daily Indication: constipation SatOctober 30 17:30:00 EDT 2022Dec 01 15:38:00 EDT 2022 potassium chloride ER 20 mEq tablet,extended release 1/2 tab TABLET, EXTENDED RELEASE Oral 1 Time Daily Indication: metabolic encephalopathy CLINICAL QUALITY RN supervision x1 SatOctober 30 17:30:00 EDT 2022Jun 14 16:42:00 EST 2022 Nasal Bunola (sodium chloride) 0.65 % aerosol 1 spray [...] TABLET Oral 2 Times Daily Indication: constipation CLINICAL QUALITY RN supervision x1, x4 SatOctober 30 17:30:00 EDT [...] 2022 * End Date: * Text: * 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 * [facility]- Eloy's wishes [...] Vital Sign Measurement Date Systolic Blood Pressure 152.00 mm[Hg] Sat Apr 19 12:35:00 EDT 5 Diastolic Blood Pressure 100.00 mm[Hg] Sat Apr 19 12:35:00 EDT 5 Systolic Blood Pressure 159.00 mm[Hg] Sat Apr 19 09:58:25 EDT 2025 Diastolic Blood Pressure 79.00 mm[Hg] Sat Apr 19 09:58:25 EDT 5 Systolic Blood Pressure 159.00 mm[Hg] Sat Apr 19 09:58:25 EDT 2024 Diastolic Blood Pressure 79.00 mm[Hg] Sat Apr 19 09:58:25 EDT 5 Systolic Blood Pressure 159.00 mm[Hg] Sat Apr 19 09:58:25 EDT 2024 Diastolic Blood Pressure 79.00 mm[Hg] Sat Apr 19 09:58:25 EDT 5 Systolic Blood Pressure 159.00 mm[Hg] Sat Apr 19 09:58:25 EDT 5 Diastolic Blood Pressure 79.00 mm[Hg] Sat Apr 19 09:58:25 EDT 5 Heart Rate 88.00 /min Sat Apr 19 09:58 :25 EDT 2024 Systolic Blood Pressure 159.00 mm[Hg] Sat Apr 19 08:19:31 EDT 5 Diastolic Blood Pressure 79.00 mm[Hg] Sat Apr 19 08:19:31 EDT 2024 Heart Rate 83.00 /min Sat Apr 19 08:19 :31 EDT 2024 Pulse Oximetry 91.00 % Sat Apr 19 08:19 :31 EDT 5 Systolic Blood Pressure 140.00 mm[Hg] Fri Sep 18 22:55:04 EDT 2024 Diastolic Blood Pressure 88.00 mm[Hg] Sat 18 22:55:04 EDT 2024 Systolic Blood Pressure 140.00 mm[Hg] Sat 18 22:55:04 EDT 2024 Diastolic Blood Pressure 88.00 mm[Hg] Sat 18 22:55:04 EDT 2024 Systolic Blood Pressure 140.00 mm[Hg] Sat 18 22:55:04 EDT 2024 Diastolic Blood Pressure 88.00 mm[Hg] Fri Apr 18 22:55:04 EDT 2024 Heart Rate 78.00 /min Fri Sep 18 22:55 :04 EDT 2024 Systolic Blood Pressure 122.00 mm[Hg] Sat 18 12:49:44 EDT 2024 Diastolic Blood Pressure 62.00 mm[Hg] Sat 18 12:49:44 EDT 2024 Systolic Blood Pressure 146.00 mm[Hg] Sat 18 10:23:23 EDT 2024 Diastolic Blood Pressure 76.00 mm[Hg] Sat 18 10:23:23 EDT 2024 Systolic Blood Pressure 146.00 mm[Hg] Sat 18 10:23:23 EDT 2024 Diastolic Blood Pressure 76.00 mm[Hg] Sat 18 10:23:23 EDT 2024 Systolic Blood Pressure 146.00 mm[Hg] Sat 18 10:23:23 EDT 2024 Diastolic Blood Pressure 76.00 mm[Hg] Sat 18 10:23:23 EDT 2024 Systolic Blood Pressure 146.00 mm[Hg] Sat 18 10:23:23 EDT 2024 Diastolic Blood Pressure 76.00 mm[Hg] Sat 18 10:23:23 EDT 2024 Heart Rate 80.00 /min Sat 18 10:23 :23 EDT 2024 Systolic Blood Pressure 128.00 mm[Hg] Samantha Apr 17 21:55:10 EDT 2024 Diastolic Blood Pressure 74.00 mm[Hg] Samantha Apr 17 21:55:10 EDT 2024 Systolic Blood Pressure 128.00 mm[Hg] Samantha Apr 17 21:55:10 EDT 2024 Diastolic Blood Pressure 74.00 mm[Hg] Samantha Apr 17 21:55:10 EDT 2024 Systolic Blood Pressure 128.00 mm[Hg] Samantha Apr 17 21:55:10 EDT 2024 Diastolic Blood Pressure 74.00 mm[Hg] Samantha Apr 17 21:55:10 EDT 2024 Heart Rate 75.00 /min Samantha Apr 17 21:55 :10 EDT 2024 Systolic Blood Pressure 117.00 mm[Hg] Samantha Apr 17 16:11:47 EDT 2024 Diastolic Blood Pressure 60.00 mm[Hg] Samantha Apr 17 16:11:47 EDT 2024 Systolic Blood Pressure 122.00 mm[Hg] Samantha Apr 17 10:06:44 EDT 2024 Diastolic Blood Pressure 78.00 mm[Hg] Samantha Apr 17 10:06:44 EDT 2024 Systolic Blood Pressure 122.00 mm[Hg] Samantha Apr 17 10:06:44 EDT 2024 Diastolic Blood Pressure 78.00 mm[Hg] Samantha Apr 17 10:06:44 EDT 2024 Systolic Blood Pressure 122.00 mm[Hg] Samantha Apr 17 10:06:44 EDT 2024 Diastolic Blood Pressure 78.00 mm[Hg] Samantha Apr 17 10:06:44 EDT 2024 Systolic Blood Pressure 122.00 mm[Hg] Samantha Apr 17 10:06:44 EDT 2024 Diastolic Blood Pressure 78.00 mm[Hg] Samantha Apr 17 10:06:44 EDT 2024 Heart Rate 78.00 /min Samantha Apr 17 10:06 :44 EDT 2024 Systolic Blood Pressure 148.00 mm[Hg] Wed Sep 16 21:07:52 EDT 2024 Diastolic Blood Pressure 73.00 mm[Hg] Wed Sep 16 21:07:52 EDT 2024 Systolic Blood Pressure 148.00 mm[Hg] Sat 16 21:07:52 EDT 2024 Diastolic Blood Pressure 73.00 mm[Hg] Sat 16 21:07:52 EDT 2024 Systolic Blood Pressure 148.00 mm[Hg] Sat 16 21:07:52 EDT 2024 Diastolic Blood Pressure 73.00 mm[Hg] Sat 16 21:07:52 EDT 2024 Heart Rate 76.00 /min Sat 16 21:07 :52 EDT 2024 Systolic Blood Pressure 136.00 mm[Hg] Sat 16 18:41:56 EDT 2024 Diastolic Blood Pressure 64.00 mm[Hg] Sat 16 18:41:56 EDT 2024 Heart Rate 70.00 /min Sat 16 18:41 :56 EDT 2024 Body temperature 97.00 [degF] Sat 16 18:4 1:56 EDT 2024 Respiratory rate 18.00 /min Sat 16 18:4 1:56 EDT 2024 Pulse Oximetry 22.00 % Sat 16 18:41 :56 EDT 2024 Systolic Blood Pressure 136.00 mm[Hg] Sat 16 14:31:48 EDT 2024 Diastolic Blood Pressure 64.00 mm[Hg] Sat 16 14:31:48 EDT 2024 Systolic Blood Pressure 138.00 mm[Hg] Sat 16 11:27:11 EDT 2024 Diastolic Blood Pressure 70.00 mm[Hg] Sat 16 11:27:11 EDT 2024 Systolic Blood Pressure 138.00 mm[Hg] Sat 16 11:27:11 EDT 2024 Diastolic Blood Pressure 70.00 mm[Hg] Sat 16 11:27:11 EDT 2024 Systolic Blood Pressure 138.00 mm[Hg] Sat 16 11:27:11 EDT 2024 Diastolic Blood Pressure 70.00 mm[Hg] Sat 16 11:27:11 EDT 2024 Systolic Blood Pressure 138.00 mm[Hg] Sat 16 11:27:11 EDT 2024 Diastolic Blood Pressure 70.00 mm[Hg] Sat 16 11:27:11 EDT 2024 Heart Rate 70.00 /min SatOct 14 11:27 :11 EDT 2024 Systolic Blood Pressure 138.00 mm[Hg] Sat 16 08:05:38 EDT 2024 Diastolic Blood Pressure 70.00 mm[Hg] SatOct 14 08:05:38 EDT 2024 Heart Rate 70.00 /min SatOct 14 08:05 :38 EDT 2024 Pulse Oximetry 95.00 % SatOct 14 08:05 :38 EDT 2024 Respiratory rate 22.00 /min SatOct 14 08:0 5:38 EDT 2024 Body temperature 97.30 [degF] SatOct 14 08:0 5:38 EDT 2024 Systolic Blood Pressure 132.00 mm[Hg] SatOct 13 23:50:54 EDT 2024 Diastolic Blood Pressure 73.00 mm[Hg] SatOct 13 23:50:54 EDT 2024 Systolic Blood Pressure 132.00 mm[Hg] SatOct 13 23:50:54 EDT 2024 Diastolic Blood Pressure 73.00 mm[Hg] SatOct 13 23:50:54 EDT 2024 Systolic Blood Pressure 132.00 mm[Hg] SatOct 13 23:50:54 EDT 2024 Diastolic Blood Pressure 73.00 mm[Hg] SatOct 13 23:50:54 EDT 2024 Heart Rate 83.00 /min SatOct 13 23:50 :54 EDT 2024 Systolic Blood Pressure 156.00 mm[Hg] SatOct 13 13:31:07 EDT 2024 Diastolic Blood Pressure 82.00 mm[Hg] Sat 15 13:31:07 EDT 2024 Systolic Blood Pressure 126.00 mm[Hg] Sat 15 09:53:45 EDT 2024 Diastolic Blood Pressure 65.00 mm[Hg] Sat 15 09:53:45 EDT 2024 Systolic Blood Pressure 126.00 mm[Hg] Sat 15 09:53:45 EDT 2024 Diastolic Blood Pressure 65.00 mm[Hg] Sat 15 09:53:45 EDT 2024 Systolic Blood Pressure 126.00 mm[Hg] Sat 15 09:53:45 EDT 2024 Diastolic Blood Pressure 65.00 mm[Hg] Sat 15 09:53:45 EDT 2024 Systolic Blood Pressure 126.00 mm[Hg] Sat 15 09:53:45 EDT 2024 Diastolic Blood Pressure 65.00 mm[Hg] Sat 15 09:53:45 EDT 2024 Heart Rate 75.00 /min Sat 15 09:53 :45 EDT 2024 Systolic Blood Pressure 157.00 mm[Hg] Sat 14 20:31:26 EDT 2024 Diastolic Blood Pressure 85.00 mm[Hg] Sat 14 20:31:26 EDT 2024 Systolic Blood Pressure 157.00 mm[Hg] Sat 14 20:31:26 EDT 2024 Diastolic Blood Pressure 85.00 mm[Hg] Sat 14 20:31:26 EDT 2024 Systolic Blood Pressure 157.00 mm[Hg] Sat 14 20:31:26 EDT 2024 Diastolic Blood Pressure 85.00 mm[Hg] Sat 14 20:31:26 EDT 2024 Heart Rate 78.00 /min Sat 14 20:31 :26 EDT 2024 Systolic Blood Pressure 113.00 mm[Hg] Sat 14 14:03:31 EDT 2024 Diastolic Blood Pressure 67.00 mm[Hg] Sat 14 14:03:31 EDT 2024 Systolic Blood Pressure 128.00 mm[Hg] Sat 14 10:53:48 EDT 2024 Diastolic Blood Pressure 59.00 mm[Hg] Sat 14 10:53:48 EDT 2024 Systolic Blood Pressure 128.00 mm[Hg] Sat 14 10:53:48 EDT 2024 Diastolic Blood Pressure 59.00 mm[Hg] Sat 14 10:53:48 EDT 2024 Systolic Blood Pressure 128.00 mm[Hg] Mon Apr 14 10:53:48 EDT 2024 Diastolic Blood Pressure 59.00 mm[Hg] Mon Apr 14 10:53:48 EDT 2024 Systolic Blood Pressure 128.00 mm[Hg] Mon Apr 14 10:53:48 EDT 2024 Diastolic Blood Pressure 59.00 mm[Hg] Mon Apr 14 10:53:48 EDT 2024 Heart Rate 78.00 /min Mon Apr 14 10:53 :48 EDT 2024 Systolic Blood Pressure 118.00 mm[Hg] Sun Apr 13 23:09:22 EDT 2024 Diastolic Blood Pressure 72.00 mm[Hg] Sun Apr 13 23:09:22 EDT 2024 Systolic Blood Pressure 118.00 mm[Hg] Sun Apr 13 23:09:22 EDT 2024 Diastolic Blood Pressure 72.00 mm[Hg] Sun Apr 13 23:09:22 EDT 2024 Systolic Blood Pressure 118.00 mm[Hg] Sun Apr 13 23:09:22 EDT 2024 Diastolic Blood Pressure 72.00 mm[Hg] Sun Apr 13 23:09:22 EDT 2024 Heart Rate 68.00 /min Sun Apr 13 23:09 :22 EDT 2024 Systolic Blood Pressure 134.00 mm[Hg] Sun Apr 13 13:20:31 EDT 2024 Diastolic Blood Pressure 88.00 mm[Hg] Sun Apr 13 13:20:31 EDT 2024 Systolic Blood Pressure 139.00 mm[Hg] Sun Apr 13 10:30:42 EDT 2024 Diastolic Blood Pressure 64.00 mm[Hg] Sun Apr 13 10:30:42 EDT 2024 Systolic Blood Pressure 139.00 mm[Hg] Sun Apr 13 10:30:42 EDT 2024 Diastolic Blood Pressure 64.00 mm[Hg] Sun Apr 13 10:30:42 EDT 2024 Systolic Blood Pressure 139.00 mm[Hg] Sun Apr 13 10:30:42 EDT 2024 Diastolic Blood Pressure 64.00 mm[Hg] Sun Apr 13 10:30:42 EDT 2024 Systolic Blood Pressure 139.00 mm[Hg] Sun Apr 13 10:30:42 EDT 2024 Diastolic Blood Pressure 64.00 mm[Hg] Sun Apr 13 10:30:42 EDT 2024 Heart Rate 83.00 /min Sun Apr 13 10:30 :42 EDT 2025 Systolic Blood Pressure 139.00 mm[Hg] Sun Apr 13 08:20:43 EDT 5 Diastolic Blood Pressure 64.00 mm[Hg] Sun Apr 13 08:20:43 EDT 2024 Heart Rate 83.00 /min Sun Apr 13 08:20 :43 EDT 2024 Systolic Blood Pressure 148.00 mm[Hg] Sat Apr 12 22:39:33 EDT 2024 Diastolic Blood Pressure 84.00 mm[Hg] Sat Apr 12 22:39:33 EDT 5 Systolic Blood Pressure 148.00 mm[Hg] Sat Apr 12 22:39:33 EDT 5 Diastolic Blood Pressure 84.00 mm[Hg] Sat Apr 12 22:39:33 EDT 2024 Systolic Blood Pressure 148.00 mm[Hg] Sat Apr 12 22:39:33 EDT 2024 Diastolic Blood Pressure 84.00 mm[Hg] Sat Apr 12 22:39:33 EDT 2024 Heart Rate 67.00 /min Sat Apr 12 22:39 :33 EDT 2024 Systolic Blood Pressure 122.00 mm[Hg] Sat Apr 12 12:32:36 EDT 2024 Diastolic Blood Pressure 71.00 mm[Hg] Sat Apr 12 12:32:36 EDT 5 Systolic Blood Pressure 150.00 mm[Hg] Sat Apr 12 10:32:56 EDT 2024 Diastolic Blood Pressure 75.00 mm[Hg] Sat Apr 12 10:32:56 EDT 2024 Systolic Blood Pressure 150.00 mm[Hg] Sat Apr 12 10:32:56 EDT 5 Diastolic Blood Pressure 75.00 mm[Hg] Sat Apr 12 10:32:56 EDT 5 Systolic Blood Pressure 150.00 mm[Hg] Sat Apr 12 10:32:56 EDT 5 Diastolic Blood Pressure 75.00 mm[Hg] Sat Apr 12 10:32:56 EDT 5 Systolic Blood Pressure 150.00 mm[Hg] Sat Apr 12 10:32:56 EDT 2024 Diastolic Blood Pressure 75.00 mm[Hg] Sat Apr 12 10:32:56 EDT 2024 Heart Rate 75.00 /min Sat Apr 12 10:32 :56 EDT 5 Systolic Blood Pressure 130.00 mm[Hg] Fri Apr 11 23:31:51 EDT 2024 Diastolic Blood Pressure 86.00 mm[Hg] Fri Apr 11 23:31:51 EDT 2024 Systolic Blood Pressure 130.00 mm[Hg] SatOct 09 23:31:51 EDT 2024 Diastolic Blood Pressure 86.00 mm[Hg] SatOct 09 23:31:51 EDT 2024 Systolic Blood Pressure 130.00 mm[Hg] SatOct 09 23:31:51 EDT 2024 Diastolic Blood Pressure 86.00 mm[Hg] SatOct 09 23:31:51 EDT 2024 Heart Rate 79.00 /min SatOct 09 23:31 :51 EDT 2024 Systolic Blood Pressure 180.00 mm[Hg] SatOct 09 13:26:39 EDT 2024 Diastolic Blood Pressure 78.00 mm[Hg] SatOct 09 13:26:39 EDT 2024 Systolic Blood Pressure 118.00 mm[Hg] SatOct 09 09:55:43 EDT 2024 Diastolic Blood Pressure 63.00 mm[Hg] SatOct 09 09:55:43 EDT 2024 Systolic Blood Pressure 118.00 mm[Hg] SatOct 09 09:55:43 EDT 2024 Diastolic Blood Pressure 63.00 mm[Hg] SatOct 09 09:55:43 EDT 2024 Systolic Blood Pressure 118.00 mm[Hg] SatOct 09 09:55:43 EDT 2024 Diastolic Blood Pressure 63.00 mm[Hg] SatOct 09 09:55:43 EDT 2024 Systolic Blood Pressure 118.00 mm[Hg] SatOct 09 09:55:43 EDT 2024 Diastolic Blood Pressure 63.00 mm[Hg] SatOct 09 09:55:43 EDT 2024 Heart Rate 78.00 /min SatOct 09 09:55 :43 EDT 2024 Systolic Blood Pressure 118.00 mm[Hg] SatOct 09 07:13:10 EDT 2024 Diastolic Blood Pressure 63.00 mm[Hg] SatOct 09 07:13:10 EDT 2024 Pulse Oximetry 96.00 % SatOct 09 07:13 :10 EDT 2024 Heart Rate 78.00 /min SatOct 09 07:13 :10 EDT 2024 Systolic Blood Pressure 149.00 mm[Hg] Sat 10 20:29:53 EDT 2024 Diastolic Blood Pressure 75.00 mm[Hg] Samantha Sep 10 20:29:53 EDT 2024 Systolic Blood Pressure 149.00 mm[Hg] Sat 10 20:29:53 EDT 2024 Diastolic Blood Pressure 75.00 mm[Hg] Samantha Sep 10 20:29:53 EDT 2024 Systolic Blood Pressure 149.00 mm[Hg] Samantha Oct 08 20:29:53 EDT 2024 Diastolic Blood Pressure 75.00 mm[Hg] Samantha Oct 08 20:29:53 EDT 2024 Heart Rate 78.00 /min Samantha Oct 08 20:29 :53 EDT 2024 Systolic Blood Pressure 153.00 mm[Hg] Samantha Oct 08 12:47:36 EDT 2024 Diastolic Blood Pressure 97.00 mm[Hg] Samantha Oct 08 12:47:36 EDT 2024 Systolic Blood Pressure 142.00 mm[Hg] Samantha Oct 08 09:58:09 EDT 2024 Diastolic Blood Pressure 84.00 mm[Hg] Samantha Sep 10 09:58:09 EDT 2024 Systolic Blood Pressure 142.00 mm[Hg] Samantha Oct 08 09:58:09 EDT 2024 Diastolic Blood Pressure 84.00 mm[Hg] Samantha Oct 08 09:58:09 EDT 2024 Systolic Blood Pressure 142.00 mm[Hg] Samantha Oct 08 09:58:09 EDT 2024 Diastolic Blood Pressure 84.00 mm[Hg] Samantha Oct 08 09:58:09 EDT 2024 Systolic Blood Pressure 142.00 mm[Hg] Samantha Oct 08 09:58:09 EDT 2024 Diastolic Blood Pressure 84.00 mm[Hg] Samantha Oct 08 09:58:09 EDT 2024 Heart Rate 98.00 /min Samantha Oct 08 09:58 :09 EDT 2024 Systolic Blood [...] 2024 Diastolic Blood Pressure 78.00 mm[Hg] Sat 08 21:36:35 EDT 2024 Systolic Blood Pressure 132.00 mm[Hg] Sat 08 21:36:35 EDT 2024 Diastolic Blood Pressure 78.00 mm[Hg] Sat 08 21:36:35 EDT 2024 Heart Rate 86.00 /min SatOct 06 21:36 :35 EDT 2024 Systolic Blood Pressure 144.00 mm[Hg] Sat 08 12:55:51 EDT 2024 Diastolic Blood Pressure 76.00 mm[Hg] Sat 08 12:55:51 EDT 2024 Systolic Blood Pressure 141.00 [...] 10:05:27 EDT 2024 Heart Rate 78.00 /min SatOct 06 10:05 :27 EDT 2024 Systolic Blood Pressure 141.00 mm[Hg] Sat 08 07:54:24 EDT 2024 Diastolic Blood Pressure 86.00 mm[Hg] Sat 08 07:54:24 EDT 2024 Pulse Oximetry 95.00 % SatOct 06 07:54 :24 EDT 2024 Heart Rate 78.00 /min SatOct 06 07:54 :24 EDT 2024 Systolic Blood Pressure [...] 2024 Diastolic Blood Pressure 83.00 mm[Hg] Sun Sep 06 22:37:50 EDT 2024 Heart Rate 78.00 /min Sun Sep 06 22:37 :50 EDT 2024 Systolic Blood Pressure 127.00 mm[Hg] Sun Apr 06 13:15:49 EDT 2024 Diastolic Blood Pressure 75.00 mm[Hg] Sun Apr 06 13:15:49 EDT 2024 Systolic Blood Pressure 160.00 mm[Hg] Sun Apr 06 11:13:23 EDT 2024 Diastolic Blood Pressure 85.00 mm[Hg] Sun Apr 06 11:13:23 EDT 2024 Systolic Blood Pressure 160.00 mm[Hg] Sun Apr 06 11:13:23 EDT 2024 Diastolic Blood Pressure 85.00 mm[Hg] Sun Apr 06 11:13:23 EDT 2024 Systolic Blood Pressure 160.00 mm[Hg] Sun Apr 06 11:13:23 EDT 2024 Diastolic Blood Pressure 85.00 mm[Hg] Sun Apr 06 11:13:23 EDT 2024 Systolic Blood Pressure 160.00 mm[Hg] Sun Apr 06 11:13:23 EDT 2024 Diastolic Blood Pressure 85.00 mm[Hg] Sun Oct 04 11:13:23 EDT 2024 Heart Rate 66.00 /min Sun Oct 04 11:13 :23 EDT 2024 Systolic Blood Pressure 145.00 mm[Hg] Sun Sep 06 01:10:24 EDT 2024 Diastolic Blood Pressure 76.00 mm[Hg] Sun Sep 06 01:10:24 EDT 2024 Systolic Blood Pressure 145.00 mm[Hg] Sun Sep 06 01:10:24 EDT 2024 Diastolic Blood Pressure [...] 76.00 mm[Hg] Sat Apr 05 10:12:55 EDT 5 Systolic Blood Pressure 146.00 mm[Hg] Sat Apr 05 10:12:55 EDT 2024 Diastolic Blood Pressure 76.00 mm[Hg] Sat Apr 05 10:12:55 EDT 2024 Systolic Blood Pressure 146.00 mm[Hg] Sat Apr 05 10:12:55 EDT 2024 Diastolic Blood Pressure 76.00 mm[Hg] Sat Apr 05 10:12:55 EDT 2024 Heart Rate 73.00 /min Sat Apr 05 10:12 :55 EDT 2024 Systolic Blood Pressure 144.00 mm[Hg] Fri Sep 04 23:03:37 EDT 2024 Diastolic Blood Pressure 81.00 mm[Hg] Fri Sep 04 23:03:37 EDT 2024 Systolic Blood Pressure 144.00 mm[Hg] Fri Sep 04 23:03:37 EDT 2024 Diastolic Blood Pressure 81.00 mm[Hg] Fri Sep 04 23:03:37 EDT 2024 Systolic Blood Pressure 144.00 mm[Hg] Fri Sep 04 23:03:37 EDT 2024 Diastolic Blood Pressure 81.00 mm[Hg] Fri Sep 04 23:03:37 EDT 2024 Heart Rate 66.00 /min Fri Sep 04 23:03 :37 EDT 2024 Systolic Blood Pressure 121.00 mm[Hg] Fri Sep 04 12:47:10 EDT 2024 Diastolic Blood Pressure 64.00 mm[Hg] Fri Sep 04 12:47:10 EDT 2024 Systolic Blood Pressure 155.00 mm[Hg] Fri Sep 04 10:14:22 EDT 2024 Diastolic Blood Pressure 71.00 mm[Hg] Fri Sep 04 10:14:22 EDT 2024 Systolic Blood Pressure 155.00 mm[Hg] Fri Sep 04 10:14:22 EDT 2024 Diastolic Blood Pressure 71.00 mm[Hg] Fri Sep 04 10:14:22 EDT 2024 Systolic Blood Pressure 155.00 mm[Hg] Fri Sep 04 10:14:22 EDT 2024 Diastolic Blood Pressure 71.00 mm[Hg] Fri Apr 04 10:14:22 EDT 2024 Systolic Blood Pressure 155.00 mm[Hg] SatOct 02 10:14:22 EDT 2024 Diastolic Blood Pressure 71.00 mm[Hg] SatOct 02 10:14:22 EDT 2024 Heart Rate 89.00 /min [...] 109.00 mm[Hg] Samantha Oct 01 11:32:48 EDT 5 Diastolic Blood Pressure 78.00 mm[Hg] Samantha Oct [...] EDT 2024 Systolic Blood Pressure 141.00 mm[Hg] [facility] Sep 28 21:52:14 EDT 2024 Diastolic Blood Pressure 72.00 mm[Hg] [facility] Sep 28 21:52:14 EDT 2024 Heart Rate 75.00 /min SatSep 28 21:52 :14 EDT 2024 Systolic Blood Pressure 127.00 mm[Hg] SatSep 28 12:40:51 EDT 2024 Diastolic Blood Pressure 86.00 mm[Hg] [facility] Sep 28 12:40:51 EDT 2024 Systolic Blood Pressure 145.00 mm[Hg] SatSep 28 10:12:36 EDT 2024 Diastolic Blood Pressure 73.00 mm[Hg] [facility] Sep 28 10:12:36 EDT 2024 Systolic Blood Pressure 145.00 mm[Hg] [facility] Sep 28 10:12:36 EDT 2024 Diastolic Blood Pressure 73.00 mm[Hg] [facility] Sep 28 10:12:36 EDT 2025 Systolic Blood Pressure 145.00 mm[Hg] SatSep 28 [...] 69.00 mm[Hg] SatSep 27 21:25:48 EDT 2024 Heart Rate 67.00 /min SatSep 27 21:25 :48 EDT 2024 Body weight 274.80 [lb_av] SatSep 27 16:33 :41 EDT 2024 Systolic Blood Pressure 113.00 mm[Hg] SatSep 27 14:00:56 EDT 2024 Diastolic Blood Pressure 57.00 mm[Hg] SatSep 27 14:00:56 EDT 2024 Systolic Blood Pressure 128.00 mm[Hg] SatSep 27 11:27:54 EDT 2024 Diastolic Blood Pressure 69.00 mm[Hg] SatSep 27 11:27:54 EDT 2024 Systolic Blood Pressure 128.00 mm[Hg] SatSep 27 11:27:54 EDT 2024 Diastolic Blood Pressure 69.00 mm[Hg] SatSep 27 11:27:54 EDT 2024 Systolic Blood Pressure 128.00 mm[Hg] SatSep 27 11:27:54 EDT 5 Diastolic Blood Pressure 69.00 mm[Hg] Sun Mar [...] Heart Rate 78.00 /min Sat Mar 29 08:02 :20 EDT 2024 Systolic Blood Pressure 152.00 mm[Hg] Sat 28 21:33:15 EDT 2024 Diastolic Blood Pressure 79.00 [...] 76.00 mm[Hg] SatSep 24 21:15:16 EDT 2024 Systolic Blood Pressure 145.00 mm[Hg] SatSep 24 21:15:16 EDT 2024 Diastolic Blood Pressure 76.00 mm[Hg] SatSep 24 21:15:16 EDT 2024 Systolic Blood Pressure 145.00 mm[Hg] SatSep 24 21:15:16 EDT 2024 Diastolic Blood Pressure 76.00 mm[Hg] Samantha Sep 24 21:15:16 EDT 2024 Heart Rate 75.00 /min SatSep 24 21:15 :16 EDT 2024 Systolic Blood Pressure 154.00 mm[Hg] SatSep 24 17:23:54 EDT 2024 Diastolic Blood Pressure 84.00 mm[Hg] SatSep 24 17:23:54 EDT 2024 Systolic Blood Pressure 140.00 mm[Hg] SatSep 24 10:10:22 EDT 2024 Diastolic Blood Pressure 77.00 mm[Hg] Samantha Sep 24 10:10:22 EDT 2024 Systolic Blood Pressure 140.00 mm[Hg] Samantha Sep 24 10:10:22 EDT 2024 Diastolic Blood Pressure [...] EDT 2024 Systolic Blood Pressure 157.00 mm[Hg] Sat 24 22:11:44 EDT 2024 Diastolic Blood Pressure 88.00 mm[Hg] Sat 24 22:11:44 EDT 2024 Systolic Blood Pressure 157.00 mm[Hg] Sat 24 22:11:44 EDT 2024 Diastolic Blood Pressure 88.00 mm[Hg] Sat 24 22:11:44 EDT 2024 Heart Rate 85.00 /min Mon Mar 24 22:11 :44 EDT 2024 Systolic Blood Pressure 136.00 mm[Hg] Sat 24 13:57:32 EDT 2024 Diastolic Blood Pressure 67.00 mm[Hg] Sat 24 13:57:32 EDT 2024 Systolic Blood Pressure 158.00 mm[Hg] Sat 24 10:48:53 EDT 2024 Diastolic Blood Pressure 79.00 mm[Hg] Sat 24 10:48:53 EDT 2024 Systolic Blood Pressure 158.00 mm[Hg] Sat 24 10:48:53 EDT 2024 Diastolic Blood Pressure 79.00 mm[Hg] Sat 24 10:48:53 EDT 2024 Systolic Blood Pressure 158.00 mm[Hg] Sat 24 10:48:53 EDT 2024 Diastolic Blood Pressure 79.00 mm[Hg] Sat 24 10:48:53 EDT 2024 Systolic Blood Pressure 158.00 mm[Hg] Sat 24 10:48:53 EDT 2024 Diastolic Blood Pressure 79.00 mm[Hg] Sat 24 10:48:53 EDT 2024 Heart Rate 73.00 /min Sat 24 10:48 :53 EDT 2024 Systolic Blood Pressure 147.00 mm[Hg] Sun Mar 23 23:29:28 EDT 2024 Diastolic Blood Pressure 86.00 mm[Hg] Sun Mar 23:29:28 EDT 2024 Systolic Blood Pressure 147.00 mm[Hg] Sat Mar 23:29:28 EDT 2024 Diastolic Blood Pressure 86.00 mm[Hg] Sun Mar 23 23:29:28 EDT 2024 Systolic Blood Pressure 147.00 mm[Hg] Sun Mar 23 23:29:28 EDT 2024 Diastolic Blood Pressure 86.00 mm[Hg] Sun Mar 23 23:29:28 EDT 2024 Heart Rate 66.00 /min Sat Mar 23 23:29 :28 EDT 2024 Systolic [...] 90.00 mm[Hg] Sat Mar 22 10:55:46 EDT 2025 Heart Rate 84.00 /min Sat 22 10:55 :46 EDT 2024 Systolic Blood [...] 10:42:00 EDT 2024 Heart Rate 81.00 /min Sat 21 10:42 :00 EDT 2024 Systolic Blood Pressure 107.00 mm[Hg] Sat 21 08:15:15 EDT 2024 Diastolic Blood Pressure 66.00 mm[Hg] Sat 21 08:15:15 EDT 2024 Heart Rate 81.00 /min Sat 21 08:15 :15 EDT 2024 Systolic Blood Pressure 132.00 mm[Hg] Samantha Sep 17 21:15:48 EDT 2024 Diastolic Blood Pressure 77.00 mm[Hg] Samantha Mar 20 21:15:48 EDT 5 Systolic Blood Pressure 132.00 mm[Hg] Samantha Mar 20 21:15:48 EDT 2024 Diastolic Blood Pressure 77.00 mm[Hg] Samantha Mar 20 21:15:48 EDT 2024 Systolic Blood Pressure 132.00 mm[Hg] Samantha Mar 20 21:15:48 EDT 2024 Diastolic Blood Pressure 77.00 mm[Hg] Samantha Mar 20 21:15:48 EDT 2024 Heart Rate 75.00 /min Samantha Mar 20 21:15 :48 EDT 2024 Systolic Blood Pressure 141.00 mm[Hg] Samantha Mar 20 12:49:45 EDT 2024 Diastolic Blood Pressure 74.00 mm[Hg] Samantha Mar 20 12:49:45 EDT 2024 Systolic Blood Pressure 148.00 mm[Hg] Samantha Mar 20 09:13:12 EDT 2024 Diastolic Blood Pressure 79.00 mm[Hg] Samantha Mar 20 09:13:12 EDT 2024 Systolic Blood Pressure 148.00 mm[Hg] Samantha Aug 20 09:13:12 EDT 2024 Diastolic Blood Pressure 79.00 mm[Hg] Samantha Mar 20 09:13:12 EDT 2024 Systolic Blood Pressure 148.00 mm[Hg] Samantha Mar 20 09:13:12 EDT 2024 Diastolic Blood Pressure 79.00 mm[Hg] Samantha Mar 20 09:13:12 EDT 2024 Systolic Blood Pressure 148.00 mm[Hg] Samantha Mar 20 09:13:12 EDT 2024 Diastolic Blood Pressure 79.00 mm[Hg] Samantha Mar 20 09:13:12 EDT 2024 Heart Rate 91.00 /min Samantha Mar 20 09:13 :12 EDT 2024 Systolic Blood [...] Pressure 81.00 mm[Hg] Sat 19 20:25:01 EDT 5 Heart Rate 85.00 /min Sat 19 20:25 [...] 75.00 mm[Hg] Sat 19 11:08:47 EDT 2024 Heart Rate 81.00 /min Sat 19 11:08 :47 EDT 2024 Systolic Blood Pressure 148.00 mm[Hg] Sat 19 08:15:42 EDT 2024 Diastolic Blood Pressure 75.00 mm[Hg] Sat 19 08:15:42 EDT 2024 Body temperature 97.90 [degF] Sat 19 08:1 5:42 EDT 2024 Respiratory rate 18.00 /min Sat 19 08:1 5:42 EDT 2024 Pulse Oximetry 95.00 % Sat 19 08:15 :42 EDT 2024 Heart Rate 81.00 /min Sat 19 08:15 :42 EDT 2024 Systolic Blood Pressure 152.00 mm[Hg] [facility] Aug 18 22:54:47 EDT 2024 Diastolic Blood Pressure 80.00 mm[Hg] [facility] Aug 18 22:54:47 EDT 2024 Systolic Blood Pressure 152.00 mm[Hg] [facility] Aug 18 22:54:47 EDT 2024 Diastolic Blood Pressure 80.00 mm[Hg] [facility] Aug 18 22:54:47 EDT 2024 Systolic Blood Pressure 152.00 mm[Hg] Maoaug 18 22:54:47 EDT 2024 Diastolic Blood Pressure 80.00 mm[Hg] Emerson Aug 18 22:54:47 EDT 2024 Heart Rate 73.00 /min Emerson Aug 18 22:54 :47 EDT 2024 Systolic Blood Pressure 131.00 mm[Hg] Emerson Aug 18 13:02:24 EDT 2024 Diastolic Blood Pressure 89.00 mm[Hg] Emerson Sep 15 13:02:24 EDT 2024 Systolic Blood Pressure 104.00 mm[Hg] Emerson Sep 15 09:55:21 EDT 2024 Diastolic Blood Pressure 64.00 mm[Hg] Emerson Sep 15 09:55:21 EDT 2024 Systolic Blood Pressure 104.00 [...] mm[Hg] Emerson Aug 18 09:55:21 EDT 2024 Heart Rate 72.00 /min Emerson Aug 18 09:55 :21 EDT 2024 Systolic Blood Pressure 104.00 mm[Hg] Emerson Aug 18 08:15:29 EDT 2024 Diastolic Blood Pressure 64.00 mm[Hg] Emerson Aug 18 08:15:29 EDT 2024 Heart Rate 72.00 /min Emerson Aug 18 08:15 :29 EDT 2024 Systolic Blood Pressure 138.00 mm[Hg] Sat 17 21:51:09 EDT 5 Diastolic Blood Pressure 72.00 mm[Hg] Sat 17 [...] Pressure 78.00 mm[Hg] Sat 17 10:06:22 EDT 5 Heart Rate 77.00 /min Sat 17 10:06 :22 EDT 2024 Systolic Blood Pressure 163.00 mm[Hg] Sat 17 08:12:18 EDT 2024 Diastolic Blood Pressure 86.00 mm[Hg] Sat 17 08:12:18 EDT 2024 Heart Rate 78.00 /min Sat 17 08:12 :18 EDT 2024 Pulse Oximetry 99.00 % Sat 17 08:12 :18 EDT 2024 Systolic Blood Pressure 139.00 mm[Hg] Sat 17 08:09:23 EDT 2024 Diastolic Blood Pressure 78.00 mm[Hg] Sat 17 08:09:23 EDT 2024 Pulse Oximetry 86.00 % Sat 17 08:09 :23 EDT 2024 Heart Rate 77.00 /min Mon Aug 17 08:09 :23 EDT 2024 Systolic Blood [...] 2024 Systolic Blood Pressure 149.00 mm[Hg] Sat 14 23:47:53 EDT 2024 Diastolic Blood Pressure 80.00 mm[Hg] Sat 14 23:47:53 EDT 2024 Systolic Blood Pressure 149.00 mm[Hg] Sat 14 23:47:53 EDT 2024 Diastolic Blood Pressure 80.00 mm[Hg] Sat 14 23:47:53 EDT 2024 Systolic Blood Pressure [...] mm[Hg] Sat Mar 14 10:35:26 EDT 2024 Heart Rate 82.00 /min Sat Mar 14 10:35 :26 EDT 2024 Systolic Blood Pressure 152.00 mm[Hg] Samantha Mar 13 21:54:03 EDT 2024 Diastolic Blood Pressure 79.00 mm[Hg] Samantha Mar 13 21:54:03 EDT 2024 Systolic Blood Pressure 152.00 mm[Hg] Samantha Mar 13 21:54:03 EDT 2024 Diastolic Blood Pressure 79.00 mm[Hg] Samantha Mar 13 21:54:03 EDT 2024 Systolic Blood Pressure 152.00 mm[Hg] Samantha Mar 13 21:54:03 EDT 2024 Diastolic Blood Pressure 79.00 mm[Hg] Samantha Mar 13 21:54:03 EDT 2024 Heart Rate 85.00 /min Samantha Mar 13 21:54 :03 EDT 2024 Systolic Blood Pressure 145.00 mm[Hg] Samantha Mar 13 13:32:46 EDT 2024 Diastolic Blood Pressure 75.00 mm[Hg] Samantha Mar 13 13:32:46 EDT 2024 Body weight 272.00 [lb_av] Sat 13 11:11 :10 EDT 2024 Systolic Blood Pressure 121.00 mm[Hg] Samanthaaug 13 10:30:43 EDT 2024 Diastolic Blood Pressure 69.00 mm[Hg] Samanthaaug 13 10:30:43 EDT 2024 Systolic Blood Pressure 121.00 mm[Hg] Samanthaaug 13 10:30:43 EDT 2024 Diastolic Blood Pressure 69.00 mm[Hg] Samanthaaug 13 10:30:43 EDT 2024 Systolic Blood Pressure 121.00 mm[Hg] Samanthaaug 13 10:30:43 EDT 2024 Diastolic Blood Pressure 69.00 mm[Hg] Samanthaaug 13 10:30:43 EDT 2024 Heart Rate 63.00 /min Samantha Sep 10 10:30 :43 EDT 2024 Systolic Blood Pressure 121.00 mm[Hg] Samantha Sep 10 10:01:26 EDT 2024 Diastolic Blood Pressure 69.00 mm[Hg] Samantha Sep 10 10:01:26 EDT 2024 Systolic Blood Pressure 152.00 [...] EDT 2024 Diastolic Blood Pressure 83.00 mm[Hg] Emerson Sep 08 10:23:03 EDT 2024 Systolic Blood Pressure 135.00 mm[Hg] Emerson Sep 08 10:23:03 EDT 2024 Diastolic Blood Pressure 83.00 mm[Hg] Emerson Sep 08 10:23:03 EDT 2024 Systolic Blood Pressure 135.00 mm[Hg] Emerson Sep 08 10:23:03 EDT 2024 Diastolic Blood Pressure 83.00 mm[Hg] Emerson Sep 08 10:23:03 EDT 2024 Systolic Blood Pressure 135.00 mm[Hg] Emerson Sep 08 10:23:03 EDT 2024 Diastolic Blood Pressure 83.00 mm[Hg] Emerson Sep 08 10:23:03 EDT 2024 Heart Rate 82.00 /min Emerson Sep 08 10:23 :03 EDT 2024 Systolic Blood Pressure 109.00 mm[Hg] Chapis Sep 07 22:09:54 EDT 2024 Diastolic Blood Pressure 82.00 mm[Hg] Sat 10 22:09:54 EDT 2024 Systolic Blood Pressure 109.00 mm[Hg] Sat 10 22:09:54 EDT 2024 Diastolic Blood Pressure 82.00 mm[Hg] Sat 10 22:09:54 EDT 2024 Systolic Blood Pressure 109.00 mm[Hg] Sat 10 22:09:54 EDT 2024 Diastolic Blood Pressure 82.00 mm[Hg] Sat 10 22:09:54 EDT 2024 Heart Rate 93.00 /min Sat 10 22:09 :54 EDT 2024 Systolic Blood Pressure 114.00 mm[Hg] Sat 10 12:50:14 EDT 2024 Diastolic Blood Pressure 67.00 mm[Hg] Sat 10 12:50:14 EDT 2024 Systolic Blood Pressure 121.00 mm[Hg] Sat 10 10:52:20 EDT 2024 Diastolic Blood Pressure 78.00 mm[Hg] Sat 10 10:52:20 EDT 2024 Systolic Blood Pressure 121.00 mm[Hg] Sat 10 10:52:20 EDT 2024 Diastolic Blood Pressure 78.00 mm[Hg] Sat 10 10:52:20 EDT 2024 Systolic Blood Pressure 121.00 mm[Hg] Sat 10 10:52:20 EDT 2024 Diastolic Blood Pressure 78.00 mm[Hg] Sat 10 10:52:20 EDT 2024 Systolic Blood Pressure 121.00 mm[Hg] Mon Mar 10 10:52:20 EDT 2024 Diastolic Blood Pressure 78.00 mm[Hg] Mon Mar 10 10:52:20 EDT 2024 Heart Rate 87.00 /min Mon Aug 10 10:52 :20 EDT 2024 Systolic Blood Pressure 121.00 mm[Hg] Mon Mar 10 09:17:50 EDT 2024 Diastolic Blood Pressure 78.00 mm[Hg] Mon Mar 10 09:17:50 EDT 2024 Heart Rate 87.00 /min Sat 10 09:17 :50 EDT 2024 Pulse Oximetry 94.00 % Mon Mar 10 09:17 :50 EDT 2024 Systolic Blood Pressure 149.00 mm[Hg] Sun Mar 23:07:40 EDT 2024 Diastolic Blood Pressure 85.00 mm[Hg] Sun Sep 06 23:07:40 EDT 2024 Systolic Blood Pressure 149.00 mm[Hg] Sun Sep 06 23:07:40 EDT 2024 Diastolic Blood Pressure 85.00 mm[Hg] Sun Sep 06 23:07:40 EDT 2024 Systolic Blood Pressure 149.00 mm[Hg] Sun Sep 06 23:07:40 EDT 2024 Diastolic Blood Pressure 85.00 mm[Hg] Sun Mar 23:07:40 EDT 2024 Heart Rate 78.00 /min Sun Sep 06 23:07 :40 EDT 2024 Systolic Blood Pressure 131.00 mm[Hg] Sun Sep 06 13:25:58 EDT 2024 Diastolic Blood Pressure 91.00 mm[Hg] Sun Sep 06 13:25:58 EDT 2024 Systolic Blood Pressure 121.00 mm[Hg] Sun Sep 06 10:24:48 EDT 2024 Diastolic Blood Pressure 75.00 mm[Hg] Sun Sep 06 10:24:48 EDT 2024 Systolic Blood Pressure 121.00 mm[Hg] Sun Sep 06 10:24:48 EDT 2024 Diastolic Blood Pressure 75.00 mm[Hg] Sun Sep 06 10:24:48 EDT 2024 Systolic Blood Pressure 121.00 mm[Hg] Sun Sep 06 10:24:48 EDT 2024 Diastolic Blood Pressure 75.00 mm[Hg] Sun Sep 06 10:24:48 EDT 2024 Systolic Blood Pressure 121.00 mm[Hg] Sun Sep 06 10:24:48 EDT 2024 Diastolic Blood Pressure 75.00 mm[Hg] Sun Mar 10:24:48 EDT 2024 Heart Rate 78.00 /min Sun Mar 10:24 :48 EDT 2024 Systolic Blood Pressure 121.00 mm[Hg] Sun Mar 07:56:29 EDT 2024 Diastolic Blood Pressure 75.00 mm[Hg] Sun Mar 07:56:29 EDT 2024 Heart Rate 78.00 /min Sun Mar 07:56 :29 EDT 2024 Pulse Oximetry 97.00 % Sun Mar 07:56 :29 EDT 2024 Systolic Blood Pressure [...] 2024 Diastolic Blood Pressure 65.00 mm[Hg] Sat Mar 08 13:29:20 EST 2024 Systolic Blood Pressure 157.00 mm[Hg] Sat Mar 08 11:19:59 EST 2024 Diastolic Blood Pressure 79.00 mm[Hg] Sat Mar 08 11:19:59 EST 2024 Systolic Blood Pressure 157.00 mm[Hg] Sat Mar 08 11:19:59 EST 2024 Diastolic Blood Pressure 79.00 mm[Hg] Sat Mar 08 11:19:59 EST 2024 Systolic Blood Pressure 157.00 mm[Hg] Sat Mar 08 11:19:59 EST 2024 Diastolic Blood Pressure 79.00 mm[Hg] Sat Mar 08 11:19:59 EST 2024 Systolic Blood Pressure 157.00 mm[Hg] Sat Mar 08 11:19:59 EST 2024 Diastolic Blood Pressure 79.00 mm[Hg] Sat Mar 08 11:19:59 EST 2024 Heart Rate 65.00 /min Sat Mar 08 11:19 :59 EST 2024 Systolic Blood Pressure 156.00 mm[Hg] Fri Mar 07 23:42:09 EST 2024 Diastolic Blood Pressure 83.00 mm[Hg] Sat 07 23:42:09 EST 2024 Systolic Blood Pressure 156.00 mm[Hg] Sat 07 23:42:09 EST 2024 Diastolic Blood Pressure 83.00 mm[Hg] Sat 07 23:42:09 EST 2024 Systolic Blood Pressure 156.00 mm[Hg] SatSep 04 23:42:09 EST 2024 Diastolic Blood Pressure 83.00 mm[Hg] Sat 07 23:42:09 EST 2024 Heart Rate 76.00 /min SatSep 04 23:42 :09 EST 2024 Systolic Blood Pressure 148.00 mm[Hg] SatSep 04 13:13:21 EST 2024 Diastolic Blood Pressure 86.00 mm[Hg] SatSep 04 13:13:21 EST 2024 Systolic Blood Pressure 130.00 [...] 62.00 mm[Hg] Sat 07 10:34:59 EST 2024 Heart Rate 94.00 /min Sat 07 10:34 :59 EST 2024 Systolic Blood Pressure 130.00 mm[Hg] Sat 07 08:16:31 EST 2024 Diastolic Blood Pressure 62.00 mm[Hg] SatSep 04 08:16:31 EST 2024 Pulse Oximetry 94.00 % SatSep 04 08:16 :31 EST 2024 Heart Rate 94.00 /min SatSep 04 08:16 :31 EST 5 Systolic Blood Pressure 136.00 mm[Hg] Sat 06 [...] EST 2024 Diastolic Blood Pressure 76.00 mm[Hg] SatSep 03 11:47:17 EST 2024 Systolic Blood Pressure 128.00 mm[Hg] Sat 06 11:47:17 EST 2024 Diastolic Blood Pressure 76.00 mm[Hg] Sat 06 11:47:17 EST 2024 Heart Rate 76.00 /min SatSep 03 11:47 :17 EST 2024 Systolic Blood Pressure 158.00 mm[Hg] SatSep 02 20:34:12 EST 2024 Diastolic Blood Pressure 76.00 mm[Hg] SatSep 02 20:34:12 EST 2024 Systolic Blood Pressure 158.00 mm[Hg] SatSep 02 20:34:12 EST 2024 Diastolic Blood Pressure 76.00 mm[Hg] SatSep 02 20:34:12 EST 2024 Systolic Blood Pressure 158.00 mm[Hg] SatSep 02 20:34:12 EST 2024 Diastolic Blood Pressure 76.00 mm[Hg] SatSep 02 20:34:12 EST 2024 Heart Rate 72.00 /min SatSep 02 20:34 :12 EST 2024 Systolic Blood Pressure 156.00 mm[Hg] SatSep 02 14:18:05 EST 2024 Diastolic Blood Pressure 88.00 [...] 10:14:38 EST 2024 Heart Rate 92.00 /min SatSep 02 10:14 :38 EST 2024 Heart Rate 92.00 /min Sat 05 10:14 :38 EST 2024 Pulse Oximetry 95.00 % SatSep 02 10:14 :38 EST 2024 Respiratory rate 20.00 /min SatSep 02 10:1 4:38 EST 2024 Body temperature 97.80 [degF] SatSep 02 10:1 4:38 EST 2024 Systolic Blood Pressure 146.00 mm[Hg] SatSep 01 23:21:20 EST 2024 Diastolic Blood Pressure 78.00 mm[Hg] SatSep 01 23:21:20 EST 2024 Systolic Blood Pressure 146.00 mm[Hg] SatSep 01 23:21:20 EST 2024 Diastolic Blood Pressure 78.00 mm[Hg] SatSep 01 23:21:20 EST 2024 Systolic Blood Pressure 146.00 mm[Hg] SatSep 01 23:21:20 EST 2024 Diastolic Blood Pressure 78.00 mm[Hg] SatSep 01 23:21:20 EST 2024 Heart Rate 96.00 /min SatSep 01 23:21 :20 EST 2024 Systolic Blood Pressure 152.00 mm[Hg] SatSep 01 14:14:01 EST 2024 Diastolic Blood Pressure 88.00 mm[Hg] Sat 04 14:14:01 EST 2024 Systolic Blood Pressure 150.00 mm[Hg] Sat 04 10:27:31 EST 2024 Diastolic Blood Pressure 86.00 mm[Hg] Sat 04 10:27:31 EST 2024 Systolic Blood Pressure 150.00 mm[Hg] Sat 04 10:27:31 EST 2024 Diastolic Blood Pressure 86.00 mm[Hg] Sat 04 10:27:31 EST 2024 Systolic Blood Pressure 150.00 mm[Hg] Sat 04 10:27:31 EST 2024 Diastolic Blood Pressure 86.00 mm[Hg] Sat 04 10:27:31 EST 2024 Systolic Blood Pressure 150.00 mm[Hg] Sat 04 10:27:31 EST 2024 Diastolic Blood Pressure 86.00 mm[Hg] Sat 04 10:27:31 EST 2024 Heart Rate 77.00 /min SatSep 01 10:27 :31 EST 2024 Systolic Blood Pressure 134.00 mm[Hg] SatAug 31 23:36:47 EST 2024 Diastolic Blood Pressure 82.00 mm[Hg] SatAug 31 23:36:47 EST 2024 Systolic Blood Pressure 134.00 mm[Hg] SatAug 31 23:36:47 EST 2024 Diastolic Blood Pressure 82.00 mm[Hg] Sat 03 23:36:47 EST 2024 Systolic Blood Pressure 134.00 mm[Hg] SatAug 31 23:36:47 EST 2024 Diastolic Blood Pressure 82.00 mm[Hg] Sat 03 23:36:47 EST 2024 Heart Rate 80.00 /min Sat 03 23:36 :47 EST 2024 Systolic Blood Pressure 129.00 mm[Hg] Sat 03 14:33:05 EST 2024 Diastolic Blood Pressure 76.00 mm[Hg] Sat 03 14:33:05 EST 2024 Systolic Blood Pressure 131.00 mm[Hg] Sat 03 11:04:38 EST 2024 Diastolic Blood Pressure 65.00 mm[Hg] Sat 03 11:04:38 EST 2024 Systolic Blood Pressure 131.00 mm[Hg] Sat 03 11:04:38 EST 2024 Diastolic Blood Pressure 65.00 mm[Hg] Sat 03 11:04:38 EST 2024 Systolic Blood Pressure 131.00 mm[Hg] Sat 03 11:04:38 EST 2024 Diastolic Blood Pressure 65.00 mm[Hg] Mon Mar 11:04:38 EST 2024 Systolic Blood Pressure 131.00 mm[Hg] Mon Aug 03 11:04:38 EST 2024 Diastolic Blood Pressure 65.00 mm[Hg] Mon Aug 03 11:04:38 EST 2024 Heart Rate 79.00 /min Mon Aug 03 11:04 :38 EST 2024 Systolic Blood Pressure 131.00 mm[Hg] Mon Mar 03 07:59:20 EST 2024 Diastolic Blood Pressure 65.00 mm[Hg] Mon Aug 31 07:59:20 EST 2024 Pulse Oximetry 95.00 % Mon Aug 31 07:59 :20 EST 2024 Heart Rate 79.00 /min Mon Aug 31 07:59 :20 EST 2024 Systolic Blood Pressure 119.00 mm[Hg] Sun Mar 23:26:15 EST 2024 Diastolic Blood Pressure 83.00 mm[Hg] Sun Mar 02 23:26:15 EST 2024 Systolic Blood Pressure 119.00 mm[Hg] Sun Mar 23:26:15 EST 2024 Diastolic Blood Pressure 83.00 mm[Hg] Sun Mar 23:26:15 EST 2024 Systolic Blood Pressure 119.00 mm[Hg] Sun Mar 23:26:15 EST 2024 Diastolic Blood Pressure 83.00 mm[Hg] Sun Mar 23:26:15 EST 2024 Heart Rate 62.00 /min Sun Mar 23:26 :15 EST 2024 Systolic Blood Pressure [...] Diastolic Blood Pressure 73.00 mm[Hg] Sun Mar 09:48:12 EST 2024 Heart Rate 87.00 /min Sun Mar 09:48 :12 EST 2024 Systolic Blood Pressure 121.00 mm[Hg] Sun Mar 08:25:28 EST 2024 Diastolic Blood Pressure 73.00 mm[Hg] Sun Mar 08:25:28 EST 2024 Pulse Oximetry 93.00 % Sun Aug 30 08:25 :28 EST 2024 Heart Rate 87.00 /min Sun Mar 08:25 :28 EST 2024 Systolic Blood Pressure 136.00 mm[Hg] Sat Mar 23:00:28 EST 2024 Diastolic Blood Pressure 79.00 mm[Hg] Sat Mar 23:00:28 EST 2024 Systolic Blood Pressure 136.00 mm[Hg] Sat Mar 23:00:28 EST 2024 Diastolic Blood Pressure 79.00 mm[Hg] Sat Mar 23:00:28 EST 2024 Systolic Blood Pressure 136.00 mm[Hg] Sat Mar 23:00:28 EST 2024 Diastolic Blood Pressure 79.00 mm[Hg] Sat Mar 23:00:28 EST 2024 Heart Rate 66.00 /min Sat Mar 23:00 :28 EST 2024 Systolic Blood Pressure 136.00 mm[Hg] Sat Mar 12:36:57 EST 2024 Diastolic Blood Pressure 80.00 mm[Hg] Sat Mar 12:36:57 EST 2024 Systolic Blood Pressure 136.00 mm[Hg] Sat Mar 09:19:30 EST 2024 Diastolic Blood Pressure 80.00 mm[Hg] Sat Mar 09:19:30 EST 2024 Systolic Blood Pressure 136.00 mm[Hg] Sat Mar 09:19:30 EST 2024 Diastolic Blood Pressure 80.00 mm[Hg] Sat Mar 09:19:30 EST 2024 Systolic Blood Pressure 136.00 mm[Hg] Sat Mar 09:19:30 EST 2024 Diastolic Blood Pressure 80.00 mm[Hg] Sat Mar 09:19:30 EST 2024 Systolic Blood Pressure 136.00 mm[Hg] Sat Mar 09:19:30 EST 2024 Diastolic Blood Pressure 80.00 mm[Hg] Sat Mar 09:19:30 EST 2024 Heart Rate 78.00 /min Sat Mar 09:19 :30 EST 2024 Systolic Blood Pressure 149.00 mm[Hg] Sat Mar 07:30:12 EST 2024 Diastolic Blood Pressure 63.00 mm[Hg] SatAug 29 07:30:12 EST 2024 Heart Rate 79.00 /min SatAug 29 07:30 :12 EST 2024 Pulse Oximetry 90.00 % SatAug 29 07:30 :12 EST 2024 Systolic Blood Pressure 139.00 mm[Hg] Fri Feb 28 21:59:31 EST 2024 Diastolic Blood Pressure 78.00 mm[Hg] Fri Feb 28 21:59:31 EST 5 Systolic Blood Pressure 139.00 mm[Hg] Fri Feb 28 21:59:31 EST 5 Diastolic Blood Pressure 78.00 mm[Hg] Fri Feb 28 21:59:31 EST 5 Systolic Blood Pressure 139.00 mm[Hg] Fri Feb 28 21:59:31 EST 5 Diastolic Blood Pressure 78.00 mm[Hg] Fri Feb 28 21:59:31 EST 5 Heart Rate 98.00 /min Fri Feb 28 21:59 :31 EST 2024 Systolic Blood Pressure 168.00 mm[Hg] Fri Feb 28 13:23:13 EST 2024 Diastolic Blood Pressure 92.00 mm[Hg] Fri Feb 28 13:23:13 EST 5 Systolic Blood Pressure 154.00 mm[Hg] [...] mm[Hg] Fri Feb 28 10:18:09 EST 5 Heart Rate 102.00 /min Fri Feb 28 10:18 :09 EST 5 Systolic Blood Pressure 151.00 mm[Hg] Fri Feb 28 08:04:13 EST 5 Diastolic Blood Pressure 104.00 mm[Hg] Fri Feb 28 08:04:13 EST 2025 Heart Rate 95.00 /min Satb 28 08:04 :13 EST 2024 Pulse Oximetry 94.00 % Satb 08:04 :13 EST 5 Systolic Blood Pressure 148.00 mm[Hg] [...] 132.00 mm[Hg] Samantha Feb 27 09:47:41 EST 2025 Diastolic Blood Pressure 81.00 mm[Hg] Samantha Feb 27 09:47:41 EST 2025 Systolic Blood Pressure 132.00 mm[Hg] Samantha Feb 27 09:47:41 EST 2025 Diastolic Blood Pressure 81.00 mm[Hg] Samantha Feb 27 09:47:41 EST 2025 Heart Rate 84.00 /min Samantha Feb 27 09:47 :41 EST 2025 Systolic Blood Pressure 132.00 mm[Hg] Samantha Feb 27 08:55:07 EST 2025 Diastolic Blood Pressure 81.00 mm[Hg] Samantha Feb 27 08:55:07 EST 2025 Heart Rate 84.00 /min Samantha Feb 27 [...] /min Wed Feb 26 22:25 :49 EST 2024 Systolic Blood Pressure 124.00 mm[Hg] Wed Feb 26 13:59:26 EST 2024 Diastolic Blood Pressure 75.00 mm[Hg] Wed Feb 26 13:59:26 EST 2024 Systolic Blood Pressure 160.00 mm[Hg] Wed Feb 26 12:00:50 EST 2024 Diastolic Blood Pressure 82.00 mm[Hg] Wed Feb 26 12:00:50 EST 5 Heart Rate 75.00 /min Wed Feb 26 12:00 :50 EST 2024 Body temperature 98.30 [degF] Wed Feb 26 12:0 0:50 EST 2024 Respiratory rate 18.00 /min Wed Feb 26 12:0 0:50 EST 2024 Pulse Oximetry 89.00 % Wed Feb 26 12:00 :50 EST 2024 Systolic Blood Pressure 160.00 mm[Hg] Wed Feb 26 10:33:47 EST 2024 Diastolic Blood Pressure 82.00 mm[Hg] Wed Feb [...] 82.00 mm[Hg] Wed Feb 26 10:33:47 EST 2024 Heart Rate 75.00 /min Satb 10:33 :47 EST 5 Systolic Blood Pressure 160.00 mm[Hg] Satb 08:40:16 EST 5 Diastolic Blood Pressure 82.00 mm[Hg] Satb 08:40:16 EST 2024 Pulse Oximetry 89.00 % Satb 08:40 :16 EST 5 Heart Rate 75.00 /min Sat Feb 08:40 :16 EST 5 Systolic Blood Pressure 148.00 mm[Hg] e Feb 25 22:19:37 EST 5 Diastolic Blood Pressure 72.00 mm[Hg] Sat Feb 25 22:19:37 EST 5 Systolic Blood Pressure 148.00 mm[Hg] Sat Feb 25 22:19:37 EST 5 Diastolic Blood Pressure 72.00 mm[Hg] Sat Feb 25 22:19:37 EST 5 Systolic Blood Pressure 148.00 mm[Hg] Sat Feb 25 22:19:37 EST 2024 Diastolic Blood Pressure 72.00 mm[Hg] Sat Feb 25 22:19:37 EST 5 Heart Rate 85.00 /min Sat Feb 25 22:19 :37 EST 5 Systolic Blood Pressure 138.00 mm[Hg] e Feb 25 13:24:30 EST 5 Diastolic Blood Pressure 78.00 mm[Hg] Sat Feb 25 13:24:30 EST 5 Systolic Blood Pressure 160.00 mm[Hg] Sat Feb 25 09:05:55 EST 5 Diastolic Blood Pressure 78.00 mm[Hg] Sat Feb 09:05:55 EST 5 Systolic Blood Pressure 160.00 mm[Hg] Sat Feb 25 09:05:55 EST 5 Diastolic Blood Pressure 78.00 mm[Hg] Sat Feb 25 09:05:55 EST 5 Systolic Blood Pressure 160.00 mm[Hg] e Feb 25 09:05:55 EST 5 Diastolic Blood Pressure 78.00 mm[Hg] e Feb 25 09:05:55 EST 5 Systolic Blood Pressure 160.00 mm[Hg] e Feb 25 09:05:55 EST 5 Diastolic Blood Pressure 78.00 mm[Hg] Sat Feb 25 09:05:55 EST 5 Heart Rate 85.00 /min SatAug 25 09:05 :55 EST 2024 Systolic Blood Pressure 160.00 mm[Hg] SatAug 25 07:41:39 EST 2024 Diastolic Blood Pressure 78.00 mm[Hg] SatAug 25 07:41:39 EST 2024 Heart Rate 85.00 /min SatAug 25 07:41 :39 EST 2024 Pulse Oximetry 94.00 % SatAug 25 07:41 :39 EST 2024 Systolic Blood Pressure 152.00 mm[Hg] Sat Feb 22:17:54 EST 2024 Diastolic Blood Pressure 79.00 mm[Hg] Sat Feb 24 22:17:54 EST 2024 Systolic Blood Pressure 152.00 mm[Hg] Sat Feb 24 22:17:54 EST 2024 Diastolic Blood Pressure 79.00 mm[Hg] Satb 24 22:17:54 EST 2024 Systolic Blood Pressure 152.00 mm[Hg] Satb 24 22:17:54 EST 2024 Diastolic Blood Pressure 79.00 mm[Hg] Sat Feb 24 22:17:54 EST 2024 Heart Rate 78.00 /min Satb 24 22:17 :54 EST 2024 Body weight 288.60 [lb_av] Satb 24 14:45 :40 EST 2024 Systolic Blood Pressure 140.00 mm[Hg] Satb 24 13:04:45 EST 2024 Diastolic Blood Pressure 72.00 mm[Hg] Satb 24 13:04:45 EST 5 Systolic Blood Pressure 126.00 mm[Hg] Sat Feb 24 10:08:55 EST 2024 Diastolic Blood Pressure 64.00 mm[Hg] Satb 24 10:08:55 EST 2024 Systolic Blood Pressure 126.00 mm[Hg] Sat Feb 24 10:08:55 EST 5 Diastolic Blood Pressure 64.00 mm[Hg] Sat Feb 24 10:08:55 EST 2024 Systolic Blood Pressure 126.00 mm[Hg] Sat Feb 24 10:08:55 EST 2024 Diastolic Blood Pressure 64.00 mm[Hg] Satb 24 10:08:55 EST 5 Systolic Blood Pressure 126.00 mm[Hg] Sat Feb 24 10:08:55 EST 5 Diastolic Blood Pressure 64.00 mm[Hg] Sat Feb 24 10:08:55 EST 2024 Heart Rate 85.00 /min Satb 24 10:08 :55 EST 2024 Systolic Blood Pressure 126.00 mm[Hg] Mon Feb 24 07:53:39 EST 5 Diastolic Blood Pressure 64.00 mm[Hg] Mon b 07:53:39 EST 5 Heart Rate 85.00 /min Mon b 07:53 :39 EST 5 Systolic Blood Pressure 146.00 mm[Hg] Sun Feb 23 22:11:43 EST 2024 Diastolic Blood Pressure 97.00 mm[Hg] Sun Feb 23 22:11:43 EST 5 Systolic Blood Pressure 146.00 mm[Hg] Sun Feb 23 22:11:43 EST 5 Diastolic Blood Pressure 97.00 mm[Hg] Sun Feb 23 22:11:43 EST 2024 Systolic Blood Pressure 146.00 mm[Hg] Sun Feb 22:11:43 EST 5 Diastolic Blood Pressure 97.00 mm[Hg] Sun Feb 22:11:43 EST 5 Heart Rate 107.00 /min Sun Feb 22:11 :43 EST 5 Systolic Blood Pressure 111.00 mm[Hg] Sun Feb 12:44:42 EST 5 Diastolic Blood Pressure 56.00 mm[Hg] Sun Feb 12:44:42 EST 5 Systolic Blood Pressure 140.00 mm[Hg] [...] Pressure 78.00 mm[Hg] Sun Feb 09:18:37 EST 2025 Heart Rate 80.00 /min Sun Feb 09:18 :37 EST 5 Systolic Blood Pressure 128.00 mm[Hg] Sun Feb 07:46:56 EST 5 Diastolic Blood Pressure 66.00 mm[Hg] Sun Feb 07:46:56 EST 2024 Pulse Oximetry 95.00 % Sun Feb 23 07:46 :56 EST 2024 Heart Rate 93.00 /min Sun Feb 23 07:46 :56 EST 5 Systolic Blood Pressure [...] mm[Hg] Sat Feb 22 21:40:46 EST 5 Heart Rate 102.00 /min Sat Feb 22 [...] mm[Hg] Sat Feb 22 09:31:49 EST 5 Heart Rate 78.00 /min Sat Feb 22 09:31 :49 EST 5 Systolic Blood Pressure 147.00 mm[Hg] Sat Feb 22 07:58:19 EST 5 Diastolic Blood Pressure 78.00 mm[Hg] Sat Feb 22 07:58:19 EST 5 Heart Rate 92.00 /min Sat Feb 22 07:58 :19 EST 2025 Systolic Blood Pressure 156.00 mm[Hg] Fri Feb 21 21:54:58 EST 2024 Diastolic Blood Pressure 96.00 mm[Hg] Fri Feb 21 21:54:58 EST 2024 Systolic Blood Pressure 156.00 mm[Hg] Sat Feb 21 21:54:58 EST 2024 Diastolic Blood Pressure 96.00 mm[Hg] Sat Feb 21 21:54:58 EST 2024 Systolic Blood Pressure 156.00 mm[Hg] Sat Feb 21 21:54:58 EST 2024 Diastolic Blood Pressure 96.00 mm[Hg] Sat Feb 21:54:58 EST 2024 Heart Rate 97.00 /min Sat Feb 21:54 :58 EST 2024 Systolic Blood Pressure 161.00 mm[Hg] Sat Feb 21 13:01:50 EST 2024 Diastolic Blood Pressure 83.00 mm[Hg] Sat Feb 13:01:50 EST 2024 Systolic Blood Pressure 130.00 mm[Hg] Sat Feb 10:43:02 EST 2024 Diastolic Blood Pressure 80.00 mm[Hg] Sat Feb 21 10:43:02 EST 2024 Systolic Blood Pressure 130.00 mm[Hg] Sat Feb 21 10:43:02 EST 2024 Diastolic Blood Pressure 80.00 mm[Hg] Fri Feb 21 10:43:02 EST 2024 Systolic Blood Pressure 130.00 mm[Hg] Sat Feb 21 10:43:02 EST 2024 Diastolic Blood Pressure 80.00 mm[Hg] Sat Feb 21 10:43:02 EST 2024 Systolic Blood Pressure 130.00 mm[Hg] Sat Feb 21 10:43:02 EST 2024 Diastolic Blood Pressure 80.00 mm[Hg] Sat Feb 21 10:43:02 EST 2024 Heart Rate 86.00 /min Sat Feb 21 10:43 :02 EST 2024 Systolic Blood Pressure 130.00 mm[Hg] Sat Feb 21 08:32:24 EST 2024 Diastolic Blood Pressure 80.00 mm[Hg] Sat Feb 21 08:32:24 EST 2024 Heart Rate 86.00 /min Sat Feb 08:32 :24 EST 2024 Systolic Blood Pressure [...] mm[Hg] Samantha Feb 20 10:05:35 EST 2024 Heart Rate 87.00 /min Samantha Feb 20 10:05 :35 EST 2024 Systolic Blood Pressure 142.00 mm[Hg] Samantha Feb 20 07:53:11 EST 2024 Diastolic Blood Pressure 75.00 mm[Hg] Samantha Feb 20 07:53:11 EST 2024 Pulse Oximetry 88.00 % Samantha Feb 20 07:53 :11 EST 2024 Heart Rate 88.00 /min Samantha Feb 20 07:53 :11 EST 2024 Systolic Blood Pressure 164.00 mm[Hg] Samantha Feb 20 07:47:57 EST 2024 Diastolic Blood Pressure 94.00 mm[Hg] Samantha Feb 20 07:47:57 EST 2024 Heart Rate 64.00 /min Samantha Feb 20 07:47 :57 EST 5 Pulse Oximetry 96.00 % Samantha Feb 20 07:47 :57 EST 5 Systolic Blood Pressure 133.00 mm[Hg] Wed Feb 19 20:53:14 EST 5 Diastolic Blood Pressure 78.00 mm[Hg] Wed Feb 19 20:53:14 EST 5 Systolic Blood Pressure 133.00 mm[Hg] Wed Feb 19 20:53:14 EST 2025 Diastolic Blood Pressure 78.00 mm[Hg] Wed Feb 19 20:53:14 EST 2025 Systolic Blood Pressure 133.00 mm[Hg] Wed Feb [...] 147.00 mm[Hg] Wed Feb 19 10:07:12 EST 2025 Diastolic Blood Pressure 83.00 mm[Hg] Wed Feb [...] 134.00 mm[Hg] e Feb 18 19:37:50 EST 2024 Diastolic Blood Pressure 75.00 mm[Hg] e Feb 18 19:37:50 EST 2024 Heart Rate 87.00 /min e Feb 18 19:37 :50 EST 2024 Body weight 288.40 [lb_av] e Feb 18 16:30 :00 EST 2024 Systolic Blood Pressure 111.00 mm[Hg] e Feb 18 13:01:35 EST 2024 Diastolic Blood Pressure 75.00 mm[Hg] e Feb 18 13:01:35 EST 5 Systolic Blood Pressure 135.00 mm[Hg] e Feb 18 10:04:01 EST 2024 Diastolic Blood Pressure 83.00 mm[Hg] e Feb 18 10:04:01 EST 5 Systolic Blood Pressure 135.00 mm[Hg] e Feb 18 10:04:01 EST 2024 Diastolic Blood Pressure 83.00 mm[Hg] e Feb 18 10:04:01 EST 5 Systolic Blood Pressure 135.00 mm[Hg] e Feb 18 10:04:01 EST 5 Diastolic Blood Pressure 83.00 mm[Hg] e Feb 18 10:04:01 EST 5 Systolic Blood Pressure 135.00 mm[Hg] e Feb 18 10:04:01 EST 5 Diastolic Blood Pressure 83.00 mm[Hg] e Feb 18 10:04:01 EST 5 Heart Rate 83.00 /min e Feb 18 10:04 :01 EST 2024 Systolic Blood Pressure 135.00 mm[Hg] e Feb 18 09:01:30 EST 2025 Diastolic Blood Pressure 83.00 mm[Hg] SatAug 18 09:01:30 EST 2024 Heart Rate 83.00 /min SatAug 18 09:01 :30 EST 2024 Systolic Blood Pressure 128.00 mm[Hg] Satb 17 20:32:54 EST 2024 Diastolic Blood Pressure 71.00 mm[Hg] Satb 17 20:32:54 EST 2024 Systolic Blood Pressure 128.00 mm[Hg] Satb 17 20:32:54 EST 2024 Diastolic Blood Pressure 71.00 mm[Hg] Satb 17 20:32:54 EST 2024 Systolic Blood Pressure 128.00 mm[Hg] Satb 17 20:32:54 EST 2024 Diastolic Blood Pressure 71.00 mm[Hg] Satb 17 20:32:54 EST 2024 Heart Rate 82.00 /min Satb 17 20:32 :54 EST 2024 Systolic Blood Pressure 123.00 mm[Hg] Satb 17 12:54:06 EST 2024 Diastolic Blood Pressure 73.00 mm[Hg] Satb 12:54:06 EST 2024 Systolic Blood Pressure 145.00 mm[Hg] Satb 09:41:43 EST 2024 Diastolic Blood Pressure 68.00 mm[Hg] Satb 09:41:43 EST 2024 Systolic Blood Pressure 145.00 mm[Hg] Satb 09:41:43 EST 2024 Diastolic Blood Pressure 68.00 mm[Hg] Satb 09:41:43 EST 5 Systolic Blood Pressure 145.00 mm[Hg] Satb 09:41:43 EST 2024 Diastolic Blood Pressure 68.00 mm[Hg] Satb 09:41:43 EST 5 Systolic Blood Pressure 145.00 mm[Hg] Satb 09:41:43 EST 5 Diastolic Blood Pressure 68.00 mm[Hg] Satb 09:41:43 EST 2024 Heart Rate 82.00 /min Satb 17 09:41 :43 EST 2024 Systolic Blood Pressure 145.00 mm[Hg] Satb 17 09:00:37 EST 2024 Diastolic Blood Pressure 68.00 mm[Hg] Satb 17 09:00:37 EST 2024 Heart Rate 82.00 /min Satb 17 09:00 :37 EST 2024 Pulse Oximetry 95.00 % Mon Feb 17 09:00 :37 EST 2024 Systolic Blood [...] 123.00 mm[Hg] Sun Feb 16 09:54:36 EST 2025 Diastolic Blood Pressure 77.00 mm[Hg] Sun Feb 16 09:54:36 EST 2025 Heart Rate 84.00 /min Sun Feb 16 09:54 :36 EST 2025 Systolic Blood Pressure 123.00 mm[Hg] Sun Feb 16 08:31:28 EST 2024 Diastolic Blood Pressure 77.00 mm[Hg] Sun Feb 16 08:31:28 EST 2025 Heart Rate 84.00 /min Sun Feb 16 08:31 :28 EST 5 Systolic Blood Pressure 142.00 mm[Hg] [...] mm[Hg] Sat Feb 15 20:55:43 EST 2024 Heart Rate 62.00 /min Sat Feb 15 20:55 :43 EST 5 Systolic Blood Pressure 130.00 mm[Hg] [...] mm[Hg] Sat Feb 15 10:27:09 EST 2024 Heart Rate 82.00 /min Sat Feb 15 10:27 :09 EST 5 Systolic Blood Pressure 158.00 mm[Hg] Sat Feb 15 09:53:10 EST 5 Diastolic Blood Pressure 82.00 mm[Hg] Sat Feb 15 09:53:10 EST 2024 Pulse Oximetry 93.00 % Sat Feb 15 09:53 :10 EST 2024 Heart Rate 82.00 /min Sat Feb 15 09:53 :10 EST 5 Systolic Blood Pressure 141.00 mm[Hg] [...] mm[Hg] Fri Feb 14 20:59:54 EST 5 Heart Rate 96.00 /min Fri Feb 14 20:59 :54 EST 5 Systolic Blood Pressure 159.00 mm[Hg] Fri Feb 14 13:23:51 EST 5 Diastolic Blood Pressure 93.00 mm[Hg] Fri Feb 14 13:23:51 EST 5 Systolic Blood Pressure 106.00 mm[Hg] Fri Feb 14 09:38:25 EST 2024 Diastolic Blood Pressure 67.00 mm[Hg] Fri Feb 14 09:38:25 EST 2024 Systolic Blood Pressure 106.00 mm[Hg] Fri Feb 14 09:38:25 EST 2024 Diastolic Blood Pressure 67.00 mm[Hg] Fri Feb 14 09:38:25 EST 2024 Systolic Blood Pressure 106.00 mm[Hg] Fri Feb 14 09:38:25 EST 2024 Diastolic Blood Pressure 67.00 mm[Hg] Fri Feb 14 09:38:25 EST 2024 Systolic Blood Pressure 106.00 mm[Hg] Fri Feb 14 09:38:25 EST 2024 Diastolic Blood Pressure 67.00 mm[Hg] [...] 134.00 mm[Hg] Samantha Feb 13 21:03:21 EST 5 Diastolic Blood Pressure 72.00 mm[Hg] Samantha Feb 13 21:03:21 EST 2024 Systolic Blood Pressure 134.00 mm[Hg] Samantha Feb 13 21:03:21 EST 5 Diastolic Blood Pressure 72.00 mm[Hg] Samantha Feb 13 21:03:21 EST 2024 Systolic Blood Pressure 134.00 mm[Hg] Samantha Feb 13 21:03:21 EST 5 Diastolic Blood Pressure 72.00 mm[Hg] Samantha Feb 13 21:03:21 EST 5 Heart Rate 78.00 /min Samantha Feb 13 21:03 :21 EST 5 Systolic Blood Pressure 146.00 mm[Hg] Samantha Feb [...] 152.00 mm[Hg] Wed Feb 12 20:29:30 EST 2025 Diastolic Blood Pressure 78.00 mm[Hg] Wed Feb [...] /min Wed Feb 12 19:0 2:08 EST 5 Body temperature 97.30 [degF] Wed Feb 12 19:0 2:08 EST 5 Systolic Blood Pressure 166.00 mm[Hg] Wed Feb 12 13:23:12 EST 2025 Diastolic Blood Pressure 86.00 mm[Hg] Wed Feb [...] 139.00 mm[Hg] Wed Feb 12 11:03:23 EST 2025 Diastolic Blood Pressure 93.00 mm[Hg] Wed Feb 12 11:03:23 EST 5 Systolic Blood Pressure 139.00 mm[Hg] Wed Feb 12 11:03:23 EST 5 Diastolic Blood Pressure 93.00 mm[Hg] Wed Feb 12 11:03:23 EST 5 Heart Rate 93.00 /min Wed Feb 12 11:03 :23 EST 5 Systolic Blood Pressure 145.00 mm[Hg] Sat Feb 11 20:43:44 EST 5 Diastolic Blood Pressure 72.00 mm[Hg] Sat Feb 11 20:43:44 EST 5 Systolic Blood Pressure 145.00 mm[Hg] e Feb 11 20:43:44 EST 5 Diastolic Blood Pressure 72.00 mm[Hg] Sat Feb 11 20:43:44 EST 5 Systolic Blood Pressure 145.00 mm[Hg] Sat Feb 11 20:43:44 EST 5 Diastolic Blood Pressure 72.00 mm[Hg] e Feb 11 20:43:44 EST 5 Heart Rate 75.00 /min Sat Feb 11 20:43 :44 EST 5 Systolic Blood Pressure 132.00 mm[Hg] SatAug 11 13:36:27 EST 2024 Diastolic Blood Pressure 79.00 mm[Hg] SatAug 11 [...] 73.00 mm[Hg] SatAug 11 10:41:54 EST 5 Heart Rate 91.00 /min SatAug 11 10:41 :54 EST 5 Systolic Blood Pressure 128.00 mm[Hg] SatAug 11 07:58:35 EST 5 Diastolic Blood Pressure 73.00 mm[Hg] SatAug 11 07:58:35 EST 5 Heart Rate 91.00 /min SatAug 11 07:58 :35 EST 5 Pulse Oximetry 91.00 % SatAug 11 07:58 :35 EST 5 Systolic Blood Pressure 155.00 mm[Hg] SatAug 11 00:13:59 EST 2025 Diastolic Blood Pressure 77.00 mm[Hg] SatAug 11 00:13:59 EST 2025 Systolic Blood Pressure 155.00 mm[Hg] SatAug 11 00:13:59 EST 2025 Diastolic Blood Pressure 77.00 mm[Hg] SatAug 11 00:13:59 EST 5 Systolic Blood Pressure 155.00 mm[Hg] SatAug 11 00:13:59 EST 5 Diastolic Blood Pressure 77.00 mm[Hg] SatAug 11 00:13:59 EST 2025 Heart Rate 96.00 /min SatAug 11 00:13 :59 EST 5 Body weight 294.80 [lb_av] SatAug 10 17:52 :19 EST 2024 Systolic Blood Pressure 149.00 mm[Hg] Mon Feb 10 12:55:39 EST 2024 Diastolic Blood Pressure 85.00 mm[Hg] Mon Feb 10 12:55:39 EST 2024 Systolic Blood Pressure 155.00 mm[Hg] Mon Feb 10 09:55:40 EST 2024 Diastolic Blood Pressure 78.00 mm[Hg] Mon Feb 10 09:55:40 EST 2024 Systolic Blood Pressure 155.00 mm[Hg] Mon Feb 10 09:55:40 EST 2024 Diastolic Blood Pressure 78.00 mm[Hg] Mon Feb 10 09:55:40 EST 2024 Systolic Blood Pressure 155.00 mm[Hg] Mon Feb 10 09:55:40 EST 2024 Diastolic Blood Pressure 78.00 mm[Hg] Mon Feb 10 09:55:40 EST 2024 Systolic Blood Pressure 155.00 mm[Hg] Mon Feb 10 09:55:40 EST 2024 Diastolic Blood Pressure 78.00 mm[Hg] [facility] Feb 10 09:55:40 EST 2024 Heart Rate 89.00 /min Mon Feb 10 09:55 :40 EST 2024 Systolic Blood Pressure 155.00 mm[Hg] Mon Feb 10 07:59:00 EST 2024 Diastolic Blood Pressure 78.00 mm[Hg] Mon Feb 10 07:59:00 EST 2024 Heart Rate 89.00 /min [facility] Feb 10 07:59 :00 EST 2024 Pulse Oximetry 92.00 % Sat Feb 10 07:59 :00 EST 2024 Systolic Blood Pressure 138.00 mm[Hg] Sun b 20:26:41 EST 2024 Diastolic Blood Pressure 81.00 mm[Hg] Sun b 20:26:41 EST 2024 Systolic Blood Pressure 138.00 mm[Hg] Sun b 20:26:41 EST 2024 Diastolic Blood Pressure 81.00 mm[Hg] Sun b 20:26:41 EST 2024 Systolic Blood Pressure 138.00 mm[Hg] Sun b 20:26:41 EST 2024 Diastolic Blood Pressure 81.00 mm[Hg] Sun b 20:26:41 EST 2024 Heart Rate 93.00 /min Sun b 20:26 :41 EST 2024 Systolic Blood Pressure 142.00 mm[Hg] Sun b 13:24:34 EST 2024 Diastolic Blood Pressure 75.00 mm[Hg] Sun Feb 09 13:24:34 EST 2024 Systolic Blood Pressure 146.00 mm[Hg] Sun Feb 09:47:48 EST 2024 Diastolic Blood Pressure 84.00 mm[Hg] Sun Feb 09:47:48 EST 2024 Systolic Blood Pressure 146.00 mm[Hg] Sun Feb 09:47:48 EST 2024 Diastolic Blood Pressure 84.00 mm[Hg] Sun Feb 09:47:48 EST 2024 Systolic Blood Pressure 146.00 mm[Hg] Sun Feb 09:47:48 EST 2024 Diastolic Blood Pressure 84.00 mm[Hg] Sun Feb 09:47:48 EST 2024 Systolic Blood Pressure 146.00 mm[Hg] Sun Feb 09:47:48 EST 2024 Diastolic Blood Pressure 84.00 mm[Hg] Sun Feb 09:47:48 EST 2024 Heart Rate 88.00 /min Sun Feb 09:47 :48 EST 2024 Systolic Blood Pressure 146.00 mm[Hg] Sun Feb 07:49:36 EST 2024 Diastolic Blood Pressure 84.00 mm[Hg] Sun Feb 07:49:36 EST 2024 Pulse Oximetry 94.00 % Sun Feb 07:49 :36 EST 2024 Heart Rate 88.00 /min Sun Feb 07:49 :36 EST 2024 Systolic Blood Pressure 100.00 mm[Hg] Sat Feb 08 20:59:21 EST 2024 Diastolic Blood Pressure 74.00 mm[Hg] Sat Feb 08 20:59:21 EST 2024 Systolic Blood Pressure 100.00 mm[Hg] Sat Feb 08 20:59:21 EST 5 Diastolic Blood Pressure 74.00 mm[Hg] Sat Feb 08 20:59:21 EST 2024 Systolic Blood Pressure 100.00 mm[Hg] Sat Feb 08 20:59:21 EST 2024 Diastolic Blood Pressure 74.00 mm[Hg] Sat Feb 08 20:59:21 EST 2024 Heart Rate 119.00 /min Sat Feb 08 20:59 :21 EST 5 Systolic Blood Pressure 127.00 mm[Hg] Sat Feb 08 13:52:22 EST 2024 Diastolic Blood Pressure 70.00 mm[Hg] Sat Feb 08 13:52:22 EST 2025 Systolic Blood Pressure 124.00 mm[Hg] Sat Feb [...] Systolic Blood Pressure 142.00 mm[Hg] Sat Feb 07 21:04:51 EST 2024 Diastolic Blood Pressure 83.00 mm[Hg] Sat Feb 07 21:04:51 EST 2024 Systolic Blood Pressure 142.00 mm[Hg] Sat Feb 07 21:04:51 EST 2024 Diastolic Blood Pressure 83.00 mm[Hg] Sat Feb 07 21:04:51 EST 2024 Systolic Blood Pressure 142.00 mm[Hg] Sat Feb 07 21:04:51 EST 2024 Diastolic Blood Pressure 83.00 mm[Hg] Sat Feb 07 21:04:51 EST 2024 Heart Rate 86.00 /min Sat Feb 07 21:04 :51 EST 2024 Systolic Blood Pressure 142.00 mm[Hg] Sat Feb 07 13:02:14 EST 2024 Diastolic Blood Pressure 88.00 mm[Hg] Sat Feb 07 13:02:14 EST 2024 Systolic Blood Pressure 158.00 mm[Hg] Sat Feb 07 10:28:45 EST 2024 Diastolic Blood Pressure 69.00 mm[Hg] Sat Feb 07 10:28:45 EST 2024 Systolic Blood Pressure 158.00 mm[Hg] Sat Feb 07 10:28:45 EST 2024 Diastolic Blood Pressure 69.00 mm[Hg] Sat Feb 07 10:28:45 EST 2024 Systolic Blood Pressure 158.00 mm[Hg] Sat Feb 07 10:28:45 EST 2024 Diastolic Blood Pressure 69.00 mm[Hg] Fri Feb 07 10:28:45 EST 2024 Systolic Blood Pressure 158.00 mm[Hg] Fri Feb 07 10:28:45 EST 5 Diastolic Blood Pressure 69.00 mm[Hg] Fri Feb 07 10:28:45 EST 2024 Heart Rate 82.00 /min Sat Feb 07 10:28 :45 EST 5 Systolic Blood Pressure 158.00 mm[Hg] Sat Feb 07 08:11:57 EST 2024 Diastolic Blood Pressure 69.00 mm[Hg] Fri Feb 07 08:11:57 EST 2024 Heart Rate 82.00 /min Sat Feb 07 08:11 :57 EST 2024 Systolic Blood Pressure 126.00 mm[Hg] Samantha Feb 06 21:06:32 EST 2024 Diastolic Blood Pressure 77.00 mm[Hg] Samantha Feb 06 21:06:32 EST 5 Systolic Blood Pressure 126.00 mm[Hg] Samantha Feb 06 21:06:32 EST 5 Diastolic Blood Pressure 77.00 mm[Hg] Samantha Feb 06 21:06:32 EST 5 Systolic Blood Pressure 126.00 mm[Hg] Samantha Feb 06 21:06:32 EST 5 Diastolic Blood Pressure 77.00 mm[Hg] Samantha Feb 06 21:06:32 EST 2024 Heart Rate 72.00 /min Samantha Feb 06 21:06 :32 EST 5 Systolic Blood Pressure 131.00 mm[Hg] Samantha Feb 06 12:58:54 EST 5 Diastolic Blood Pressure 82.00 mm[Hg] Samantha Feb 06 12:58:54 EST 5 Systolic Blood Pressure 151.00 mm[Hg] Samantha Feb 06 09:39:55 EST 5 Diastolic Blood Pressure 79.00 mm[Hg] Samantha Feb 06 09:39:55 EST 5 Systolic Blood Pressure 151.00 mm[Hg] Samantha Feb 06 09:39:55 EST 5 Diastolic Blood Pressure 79.00 mm[Hg] Samantha Feb 06 09:39:55 EST 5 Systolic Blood Pressure 151.00 mm[Hg] Samantha Feb 06 09:39:55 EST 5 Diastolic Blood Pressure 79.00 mm[Hg] Samantha Feb 06 09:39:55 EST 5 Systolic Blood Pressure 151.00 mm[Hg] Samantha Feb [...] EST 2024 Systolic Blood Pressure 123.00 mm[Hg] Wed Feb 05 15:02:16 EST 2024 Diastolic Blood Pressure 68.00 mm[Hg] Wed Feb 05 15:02:16 EST 2024 Heart Rate 81.00 /min Wed Feb 05 15:02 :16 EST 2024 Pulse Oximetry 96.00 % Wed Feb 05 15:02 :16 EST 2024 Respiratory rate 18.00 /min Wed Feb 05 15:0 2:16 EST 2024 Body temperature 97.40 [degF] Wed Feb 05 15:0 2:16 EST 2024 Systolic Blood Pressure 141.00 mm[Hg] Wed Feb 05 14:17:47 EST 2024 Diastolic Blood Pressure 88.00 mm[Hg] Wed Feb 05 14:17:47 EST 2024 Systolic Blood Pressure 135.00 mm[Hg] Wed Feb 05 11:10:05 EST 2024 Diastolic Blood Pressure 88.00 mm[Hg] Wed Feb 05 11:10:05 EST 2024 Systolic Blood Pressure 135.00 mm[Hg] SatAug 05 11:10:05 EST 2024 Diastolic Blood Pressure 88.00 mm[Hg] SatAug 05 11:10:05 EST 2024 Systolic Blood Pressure 135.00 mm[Hg] SatAug 05 11:10:05 EST 2024 Diastolic Blood Pressure 88.00 mm[Hg] Satb 11:10:05 EST 2024 Systolic Blood Pressure 135.00 mm[Hg] Satb 11:10:05 EST 2024 Diastolic Blood Pressure 88.00 mm[Hg] SatAug 05 11:10:05 EST 2024 Heart Rate 100.00 /min SatAug 05 11:10 :05 EST 2024 Systolic Blood Pressure 143.00 mm[Hg] Sat 04 21:25:43 EST 2024 Diastolic Blood Pressure 90.00 mm[Hg] Satb 04 21:25:43 EST 2024 Systolic Blood Pressure 143.00 mm[Hg] Sat Feb 04 21:25:43 EST 2024 Diastolic Blood Pressure 90.00 mm[Hg] Satb 04 21:25:43 EST 2024 Systolic Blood Pressure 143.00 mm[Hg] Sat Feb 04 21:25:43 EST 2024 Diastolic Blood Pressure 90.00 mm[Hg] Satb 04 21:25:43 EST 2024 Heart Rate 104.00 /min Sat 04 21:25 :43 EST 2024 Systolic Blood Pressure 113.00 mm[Hg] Satb 04 13:10:07 EST 2024 Diastolic Blood Pressure 59.00 mm[Hg] Satb 04 13:10:07 EST 2024 Systolic Blood Pressure 134.00 mm[Hg] Sat Feb 04 10:36:36 EST 2024 Diastolic Blood Pressure 74.00 mm[Hg] Sat Feb 04 10:36:36 EST 2024 Systolic Blood Pressure 134.00 mm[Hg] Sat Feb 04 10:36:36 EST 2024 Diastolic Blood Pressure 74.00 mm[Hg] Sat Feb 04 10:36:36 EST 2024 Systolic Blood Pressure 134.00 mm[Hg] Sat Feb 04 10:36:36 EST 2024 Diastolic Blood Pressure 74.00 mm[Hg] Sat Feb 04 10:36:36 EST 2024 Systolic Blood Pressure [...] EST 2024 Diastolic Blood Pressure 71.00 mm[Hg] SatAug 03 11:01:36 EST 2024 Systolic Blood Pressure 137.00 mm[Hg] SatAug 03 11:01:36 EST 2024 Diastolic Blood Pressure 71.00 mm[Hg] SatAug 03 11:01:36 EST 2024 Systolic Blood Pressure 137.00 mm[Hg] SatAug 03 11:01:36 EST 2024 Diastolic Blood Pressure 71.00 mm[Hg] SatAug 03 11:01:36 EST 2024 Systolic Blood Pressure 137.00 mm[Hg] SatAug 03 11:01:36 EST 2024 Diastolic Blood Pressure 71.00 mm[Hg] SatAug 03 11:01:36 EST 2024 Heart Rate 69.00 /min SatAug 03 11:01 :36 EST 2024 Systolic Blood Pressure 132.00 mm[Hg] SatAug 03 00:51:38 EST 2024 Diastolic Blood Pressure 75.00 mm[Hg] Mon Feb 00:51:38 EST 2024 Systolic Blood Pressure 132.00 mm[Hg] Mon Feb 00:51:38 EST 2024 Diastolic Blood Pressure 75.00 mm[Hg] Mon Feb 00:51:38 EST 2024 Systolic Blood Pressure 132.00 mm[Hg] Mon Feb 00:51:38 EST 2024 Diastolic Blood Pressure 75.00 mm[Hg] Mon Feb 00:51:38 EST 2024 Heart Rate 79.00 /min Mon Feb 00:51 :38 EST 2024 Systolic Blood Pressure 137.00 mm[Hg] Sun Feb 02 12:58:31 EST 2024 Diastolic Blood Pressure 74.00 mm[Hg] Sun Feb 02 12:58:31 EST 2024 Systolic Blood Pressure 163.00 mm[Hg] Sun Feb 02 09:45:01 EST 2024 Diastolic Blood Pressure 92.00 mm[Hg] Sun Feb 02 09:45:01 EST 2024 Systolic Blood Pressure 163.00 mm[Hg] Sun Feb 02 09:45:01 EST 2024 Diastolic Blood Pressure 92.00 mm[Hg] Sun Feb 02 09:45:01 EST 2024 Systolic Blood Pressure 163.00 mm[Hg] Sun Feb 02 09:45:01 EST 2024 Diastolic Blood Pressure 92.00 mm[Hg] Sun Feb 02 09:45:01 EST 2024 Systolic Blood Pressure 163.00 [...] Systolic Blood Pressure 137.00 mm[Hg] Sat Feb 23:03:57 EST 2024 Diastolic Blood Pressure 75.00 mm[Hg] Sat Feb 23:03:57 EST 2024 Systolic Blood Pressure 137.00 mm[Hg] Sat Feb 23:03:57 EST 2024 Diastolic Blood Pressure 75.00 mm[Hg] Sat Feb 01 23:03:57 EST 5 Systolic Blood Pressure 137.00 mm[Hg] Sat Feb 01 23:03:57 EST 5 Diastolic Blood Pressure 75.00 mm[Hg] Sat Feb 01 23:03:57 EST 5 Heart Rate 75.00 /min Sat Feb 01 23:03 :57 EST 5 Systolic Blood Pressure 165.00 mm[Hg] Sat Feb 01 13:23:03 EST 2025 Diastolic Blood Pressure 77.00 mm[Hg] Sat Feb 01 13:23:03 EST 2025 Systolic Blood Pressure 165.00 mm[Hg] Sat Feb 01 10:00:31 EST 2025 Diastolic Blood Pressure 77.00 mm[Hg] Sat Feb 01 10:00:31 EST 5 Systolic Blood Pressure 165.00 mm[Hg] Sat Feb 01 10:00:31 EST 5 Diastolic Blood Pressure 77.00 mm[Hg] Sat Feb 01 10:00:31 EST 5 Systolic Blood Pressure 165.00 mm[Hg] Sat Feb 10:00:31 EST 5 Diastolic Blood Pressure 77.00 mm[Hg] Sat Feb 10:00:31 EST 2025 Systolic Blood Pressure 165.00 mm[Hg] Sat Feb 01 10:00:31 EST 2025 Diastolic Blood Pressure 77.00 mm[Hg] Sat Feb 10:00:31 EST 5 Heart Rate 70.00 /min Sat Feb 10:00 :31 EST 5 Systolic Blood Pressure 165.00 mm[Hg] Sat Feb 08:14:46 EST 5 Diastolic Blood Pressure 77.00 mm[Hg] Sat Feb 08:14:46 EST 2024 Heart Rate 70.00 /min Sat Feb 08:14 :46 EST 2024 Pulse Oximetry 90.00 % Sat Feb 08:14 :46 EST 2024 Systolic Blood Pressure [...] Pressure 85.00 mm[Hg] SatJul 30 09:44:51 EST 5 Systolic Blood Pressure 145.00 mm[Hg] SatJul 30 09:44:51 EST 5 Diastolic Blood Pressure 85.00 mm[Hg] SatJul 30 09:44:51 EST 5 Systolic Blood Pressure 145.00 mm[Hg] SatJul 30 09:44:51 EST 5 Diastolic Blood Pressure 85.00 mm[Hg] SatJul 30 09:44:51 EST 2024 Systolic Blood Pressure 145.00 mm[Hg] SatJul 30 09:44:51 EST 5 Diastolic Blood Pressure 85.00 mm[Hg] SatJul 30 09:44:51 EST 5 Heart Rate 59.00 /min SatJul 30 09:44 :51 EST 2024 Systolic Blood Pressure 117.00 mm[Hg] [...] Pressure 125.00 mm[Hg] SatJul 29 11:59:14 EST 5 Diastolic Blood Pressure 75.00 mm[Hg] SatJul 29 [...] Pressure 82.00 mm[Hg] SatJul 28 13:06:22 EST 2024 Systolic Blood Pressure 163.00 mm[Hg] [...] Pressure 96.00 mm[Hg] SatJul 28 08:08:50 EST 2024 Heart Rate 122.00 /min SatJul 28 08:08 [...] EST 2024 Systolic Blood Pressure 155.00 mm[Hg] Sun Jul 26 12:49:09 EST 2024 Diastolic Blood Pressure 85.00 mm[Hg] Sun Jul 26 12:49:09 EST 2024 Systolic Blood Pressure 121.00 mm[Hg] SatJul 26 10:12:48 EST 2024 Diastolic Blood Pressure 73.00 mm[Hg] Sun Jul 26 10:12:48 EST 2024 Systolic Blood Pressure 121.00 mm[Hg] Sun Jul 26 10:12:48 EST 2024 Diastolic Blood Pressure 73.00 mm[Hg] Sun Jul 26 10:12:48 EST 2024 Systolic Blood Pressure 121.00 mm[Hg] Sun Jul 26 10:12:48 EST 2024 Diastolic Blood Pressure 73.00 mm[Hg] [place] Jul 26 10:12:48 EST 2024 Systolic Blood Pressure 148.00 mm[Hg] [place] Jul 26 00:10:40 EST 2024 Diastolic Blood Pressure 87.00 mm[Hg] [place] Jul 26 00:10:40 EST 2024 Systolic Blood Pressure 148.00 mm[Hg] [place] Jul 26 00:10:40 EST 2024 Diastolic Blood Pressure 87.00 mm[Hg] [place] Jul 26 00:10:40 EST 2024 Systolic Blood [...] EST 2024 Systolic Blood Pressure 125.00 mm[Hg] Sat Jul 25 10:58:02 EST 2024 Diastolic Blood Pressure [...] Blood Pressure 157.00 mm[Hg] SatJul 23 20:35:13 2024 Diastolic Blood Pressure 78.00 mm[Hg] SatJul 23 20:35:13 EST 2024 Body weight 264.00 [lb_av] SatJul 23 18:27 :41 EST 5 Systolic Blood Pressure 161.00 mm[Hg] SatJul 23 16:17:44 EST 5 Diastolic Blood Pressure 95.00 mm[Hg] SatJul 23 16:17:44 EST 2024 Systolic Blood Pressure 140.00 mm[Hg] SatJul 23 10:58:18 EST 5 Diastolic Blood Pressure 73.00 mm[Hg] SatJul 23 10:58:18 EST 5 Systolic Blood Pressure 140.00 mm[Hg] SatJul 23 10:58:18 EST 2024 Diastolic Blood Pressure 73.00 mm[Hg] SatJul 23 10:58:18 EST 2025 Systolic Blood Pressure 140.00 mm[Hg] SatJul 23 10:58:18 EST 2024 Diastolic Blood Pressure 73.00 mm[Hg] SatJul 23 10:58:18 EST 2024 Systolic Blood Pressure 140.00 mm[Hg] SatJul 23 07:11:29 EST 2024 Diastolic Blood Pressure 73.00 mm[Hg] [facility] Jul 23 07:11:29 EST 2024 Heart Rate 84.00 [...] 97.20 [degF] SatJul 22 08:3 3:51 EST 5 Systolic Blood Pressure 152.00 mm[Hg] SatJul 21 [...] Pressure 124.00 mm[Hg] SatJul 20 21:24:31 EST 5 Diastolic Blood Pressure 79.00 mm[Hg] SatJul 20 21:24:31 EST 2024 Systolic Blood Pressure 124.00 mm[Hg] SatJul 20 21:24:31 EST 2024 Diastolic Blood Pressure 79.00 mm[Hg] SatJul 20 21:24:31 EST 5 Systolic Blood Pressure 130.00 mm[Hg] SatJul 20 [...] EST 2024 Systolic Blood Pressure 132.00 mm[Hg] [place] Jul 19 23:18:21 EST 2024 Diastolic Blood Pressure 87.00 mm[Hg] [place] Jul 19 23:18:21 EST 2024 Systolic Blood Pressure 132.00 mm[Hg] [place] Jul 19 23:18:21 EST 2024 Diastolic Blood Pressure 87.00 mm[Hg] [place] Jul 19 23:18:21 EST 2024 Systolic Blood Pressure 151.00 mm[Hg] SatJul 19 13:29:22 EST 2024 Diastolic Blood Pressure 90.00 mm[Hg] SatJul 19 13:29:22 EST 2024 Systolic Blood Pressure 157.00 mm[Hg] [place] Jul 19 10:36:41 EST 2024 Diastolic Blood Pressure 84.00 mm[Hg] [place] Jul 19 10:36:41 EST 2024 Systolic Blood Pressure 157.00 mm[Hg] SatJul 19 10:36:41 EST 2024 Diastolic Blood Pressure 84.00 mm[Hg] [place] Jul 19 10:36:41 EST 2024 Systolic Blood Pressure 157.00 mm[Hg] [place] Jul 19 10:36:41 EST 2024 Diastolic Blood Pressure 84.00 mm[Hg] [place] Jul 19 10:36:41 EST 2024 Systolic Blood Pressure 157.00 mm[Hg] [place] Jul 19 07:54:27 EST 2024 Diastolic Blood Pressure 84.00 mm[Hg] SatJul 19 07:54:27 EST 2024 Pulse Oximetry 93.00 % SatJul 19 07:54 :27 EST 2024 Heart Rate 103.00 /min [place] Jul 19 07:54 :27 EST 2024 Systolic [...] Pressure 90.00 mm[Hg] SatJul 17 09:52:11 EST 2025 Systolic Blood Pressure 135.00 mm[Hg] SatJul 17 [...] Pressure 146.00 mm[Hg] SatJul 16 12:53:36 EST 2024 Diastolic Blood Pressure 89.00 mm[Hg] SatJul 16 [...] Pressure 97.00 mm[Hg] SatJul 16 11:01:11 EST 5 Systolic Blood Pressure 156.00 mm[Hg] SatJul 15 [...] Diastolic Blood Pressure 84.00 mm[Hg] Sun Jul 12 21:18:50 EST 2024 Systolic Blood Pressure 157.00 mm[Hg] [place] Jul 12 21:18:50 EST 2024 Diastolic Blood Pressure 84.00 mm[Hg] [place] Jul 12 21:18:50 EST 2024 Systolic Blood Pressure 156.00 mm[Hg] [place] Jul 12 14:26:39 EST 2024 Diastolic Blood Pressure 88.00 mm[Hg] [place] Jul 12 14:26:39 EST 2024 Systolic Blood Pressure 157.00 mm[Hg] [place] Jul 12 10:12:46 EST 2024 Diastolic Blood Pressure 103.00 mm[Hg] [place] Jul 12 10:12:46 EST 2024 Systolic Blood Pressure 157.00 mm[Hg] [place] Jul 12 10:12:46 EST 2024 Diastolic Blood Pressure 103.00 mm[Hg] [place] Jul 12 10:12:46 EST 2024 Systolic Blood Pressure 157.00 mm[Hg] [place] Jul 12 10:12:46 EST 2024 Diastolic Blood Pressure 103.00 mm[Hg] [place] Jul 12 10:12:46 EST 2024 Systolic Blood Pressure 137.00 mm[Hg] [place] Jul 12 00:46:44 EST 2024 Diastolic Blood Pressure 86.00 mm[Hg] [place] Jul 12 00:46:44 EST 2024 Systolic Blood Pressure 137.00 mm[Hg] [place] Jul 12 00:46:44 EST 2024 Diastolic Blood Pressure 86.00 mm[Hg] [place] Jul 12 00:46:44 EST 2024 Systolic Blood Pressure 146.00 mm[Hg] [facility] Jul 11 19:24:14 EST 2024 Diastolic Blood Pressure 86.00 mm[Hg] [facility] Jul 11 19:24:14 EST 2024 Heart Rate 103.00 /min [facility] Jul 11 19:24 :14 EST 2024 Respiratory rate 20.00 /min [facility] Jul 11 19:2 4:14 EST 2024 Pulse Oximetry 94.00 % [facility] Jul 11 19:24 :14 EST 2024 Body temperature 97.20 [degF] [facility] Jul 11 19:2 4:14 EST 2024 Systolic Blood Pressure 158.00 mm[Hg] [facility] Jul 11 13:35:07 EST 2024 Diastolic Blood Pressure 97.00 mm[Hg] [facility] Jul 11 13:35:07 EST 2024 Systolic Blood Pressure 135.00 mm[Hg] [facility] Jul 11 10:21:10 EST 2024 Diastolic Blood Pressure 84.00 mm[Hg] Sat Jul 11 10:21:10 EST 2024 Systolic Blood Pressure 135.00 mm[Hg] SatJul 11 10:21:10 EST 2024 Diastolic Blood Pressure 84.00 mm[Hg] SatJul 11 10:21:10 EST 2024 Systolic Blood Pressure 135.00 mm[Hg] SatJul 11 10:21:10 EST 2024 Diastolic Blood Pressure 84.00 mm[Hg] Sat Jul 11 10:21:10 EST 2024 Systolic Blood Pressure 135.00 mm[Hg] SatJul 11 07:58:21 EST 2024 Diastolic Blood Pressure 84.00 mm[Hg] Sat Jul 11 07:58:21 EST 2024 Heart Rate 95.00 /min SatJul 11 07:58 :21 EST 2024 Pulse Oximetry 89.00 % SatJul 11 07:58 :21 EST 2024 Systolic Blood [...] 2024 Systolic Blood Pressure 142.00 mm[Hg] SatJul 09 21:32:09 EST 5 Diastolic Blood Pressure 77.00 mm[Hg] SatJul 09 21:32:09 EST 2024 Systolic Blood Pressure 142.00 mm[Hg] SatJul 09 21:32:09 EST 2024 Diastolic Blood Pressure 77.00 mm[Hg] [facility] Jul 09 21:32:09 EST 2024 Systolic Blood Pressure 151.00 mm[Hg] [facility] Jul 09 12:40:03 EST 2024 Diastolic Blood Pressure 91.00 mm[Hg] [facility] Jul 09 12:40:03 EST 2024 Systolic Blood Pressure 145.00 mm[Hg] [facility] Jul 09 09:42:24 EST 2024 Diastolic Blood Pressure 82.00 mm[Hg] [facility] Jul 09 09:42:24 EST 2024 Systolic Blood Pressure 145.00 mm[Hg] [facility] Jul 09 09:42:24 EST 2024 Diastolic Blood Pressure 82.00 mm[Hg] [facility] Jul 09 09:42:24 EST 2024 Systolic Blood Pressure 145.00 mm[Hg] [facility] Jul 09 09:42:24 EST 2024 Diastolic Blood Pressure 82.00 mm[Hg] [facility] Jul 09 09:42:24 EST 2024 Systolic Blood Pressure 145.00 mm[Hg] [facility] Jul 09 07:56:25 EST 2024 Diastolic Blood Pressure 82.00 mm[Hg] [facility] Jul 09 07:56:25 EST 2024 Heart Rate [...] EST 2024 Systolic Blood Pressure 138.00 mm[Hg] [place] Jul 05 22:24:30 EST 2024 Diastolic Blood Pressure 76.00 mm[Hg] [place] Jul 05 22:24:30 EST 2024 Systolic Blood Pressure 138.00 mm[Hg] [place] Jul 05 22:24:30 EST 2024 Diastolic Blood Pressure 76.00 mm[Hg] [place] Jul 05 22:24:30 EST 2024 Systolic Blood Pressure 144.00 mm[Hg] [place] Jul 05 13:00:08 EST 2024 Diastolic Blood Pressure 90.00 mm[Hg] [place] Jul 05 13:00:08 EST 2024 Systolic Blood Pressure 154.00 mm[Hg] [place] Jul 05 11:09:10 EST 2024 Diastolic Blood Pressure 77.00 mm[Hg] Sun Jul 05 11:09:10 EST 2024 Systolic Blood Pressure 154.00 mm[Hg] Sun Jul 05 11:09:10 EST 2024 Diastolic Blood Pressure 77.00 mm[Hg] [place] Jul 05 11:09:10 EST 2024 Systolic Blood Pressure 154.00 mm[Hg] [place] Jul 05 11:09:10 EST 2024 Diastolic Blood Pressure 77.00 mm[Hg] [place] Jul 05 11:09:10 EST 2024 Systolic Blood Pressure 154.00 mm[Hg] [place] Jul 05 08:35:56 EST 2024 Diastolic Blood Pressure 77.00 mm[Hg] [place] Jul 05 08:35:56 EST 2024 Heart Rate 92.00 /min [place] Jul 05 08:35 :56 EST 2024 Systolic Blood Pressure 154.00 mm[Hg] [facility] Jul 04 21:53:52 EST 2024 Diastolic Blood Pressure 88.00 mm[Hg] [facility] Jul 04 21:53:52 EST 2024 Systolic Blood Pressure 154.00 mm[Hg] [facility] Jul 04 21:53:52 EST 2024 Diastolic Blood Pressure 88.00 mm[Hg] [facility] Jul 04 21:53:52 EST 2024 Systolic Blood Pressure 143.00 mm[Hg] [facility] Jul 04 13:06:54 EST 2024 Diastolic Blood Pressure 90.00 mm[Hg] [facility] Jul 04 13:06:54 EST 2024 Systolic Blood Pressure 164.00 mm[Hg] [facility] Jul 04 10:47:58 EST 2024 Diastolic Blood Pressure 77.00 mm[Hg] [facility] Jul 04 10:47:58 EST 2024 Systolic Blood Pressure 164.00 mm[Hg] [facility] Jul 04 10:47:58 EST 2024 Diastolic Blood Pressure 77.00 mm[Hg] [facility] Jul 04 10:47:58 EST 2024 Systolic Blood Pressure 164.00 mm[Hg] [facility] Jul 04 10:47:58 EST 2024 Diastolic Blood Pressure 77.00 mm[Hg] [facility] Jul 04 10:47:58 EST 2024 Systolic Blood [...] EST 2024 Systolic Blood Pressure 126.00 mm[Hg] [facility] Jul 02 20:48:28 EST 2024 Diastolic Blood Pressure 85.00 mm[Hg] [facility] Jul 02 20:48:28 EST 2024 Systolic Blood Pressure 126.00 mm[Hg] [facility] Jul 02 20:48:28 EST 2024 Diastolic Blood Pressure 85.00 mm[Hg] [facility] Jul 02 20:48:28 EST 2024 Systolic Blood Pressure 137.00 mm[Hg] [facility] Jul 02 13:21:05 EST 2024 Diastolic Blood Pressure 84.00 mm[Hg] [facility] Jul 02 13:21:05 EST 2024 Systolic Blood Pressure 149.00 mm[Hg] SatJul 02 08:53:05 EST 2024 Diastolic Blood Pressure 84.00 mm[Hg] [facility] Jul 02 08:53:05 EST 2024 Systolic Blood Pressure 149.00 mm[Hg] SatJul 02 08:53:05 EST 2024 Diastolic Blood Pressure 84.00 mm[Hg] [facility] Jul 02 08:53:05 EST 2024 Systolic Blood Pressure [...] Pressure 152.00 mm[Hg] SatJun 30 13:20:54 EST 2023 Diastolic Blood Pressure 85.00 mm[Hg] SatJun 30 13:20:54 EST 2023 Systolic Blood Pressure 152.00 mm[Hg] SatJun 30 09:03:31 EST 2023 Diastolic Blood Pressure 85.00 mm[Hg] SatJun 30 09:03:31 EST 2023 Systolic Blood Pressure 152.00 mm[Hg] SatJun 30 09:03:31 EST 2023 Diastolic Blood Pressure 85.00 mm[Hg] SatJun 30 09:03:31 EST 4 Systolic Blood Pressure 152.00 mm[Hg] SatJun 30 09:03:31 EST 2023 Diastolic Blood Pressure 85.00 mm[Hg] SatJun 30 09:03:31 EST 2023 Systolic Blood Pressure 152.00 mm[Hg] SatJun 30 07:35:24 EST 2023 Diastolic Blood Pressure 85.00 mm[Hg] SatJun 30 07:35:24 EST 2023 Pulse Oximetry 90.00 % SatJun 30 07:35 :24 EST 2023 Heart Rate 78.00 /min SatJun 30 07:35 :24 EST 202 Systolic Blood Pressure 156.00 mm[Hg] SatJun 29 [...] Pressure 147.00 mm[Hg] SatJun 29 09:34:15 EST 202 Diastolic Blood Pressure 84.00 mm[Hg] SatJun 29 [...] 2023 Diastolic Blood Pressure 79.00 mm[Hg] SatJun 28 20:59:31 EST 2023 Systolic Blood Pressure 145.00 mm[Hg] Sat Dec 20:59:31 EST 2023 Diastolic Blood Pressure 79.00 mm[Hg] Sat Dec 20:59:31 EST 2023 Systolic Blood Pressure 163.00 mm[Hg] SatJun 28 13:37:02 EST 2023 Diastolic Blood Pressure 86.00 mm[Hg] Sat Dec 13:37:02 EST 2023 Systolic Blood Pressure 157.00 mm[Hg] Sat Dec 09:55:41 EST 2023 Diastolic Blood Pressure 80.00 mm[Hg] Sat Dec 09:55:41 EST 2023 Systolic Blood Pressure 157.00 mm[Hg] Sat Dec 09:55:41 EST 2023 Diastolic Blood Pressure 80.00 mm[Hg] Sat Dec 09:55:41 EST 2023 Systolic Blood Pressure 157.00 mm[Hg] SatJun 28 09:55:41 EST 2023 Diastolic Blood Pressure 80.00 mm[Hg] Sat Dec 09:55:41 EST 2023 Systolic Blood Pressure 137.00 mm[Hg] [facility] Dec 21:00:27 EST 2023 Diastolic Blood Pressure 73.00 mm[Hg] [facility] Jun 27 21:00:27 EST 2023 Systolic Blood Pressure 137.00 mm[Hg] [facility] Dec 21:00:27 EST 2023 Diastolic Blood Pressure 73.00 mm[Hg] [facility] Jun 27 21:00:27 EST 2023 Systolic Blood Pressure 149.00 mm[Hg] [facility] Jun 27 13:41:29 EST 2023 Diastolic Blood Pressure 76.00 mm[Hg] [facility] Dec 13:41:29 EST 2023 Systolic Blood Pressure 131.00 mm[Hg] Sat Dec 10:56:49 EST 2023 Diastolic Blood Pressure 67.00 mm[Hg] Sat Dec 10:56:49 EST 2023 Systolic Blood Pressure 131.00 mm[Hg] Sat Dec 10:56:49 EST 2023 Diastolic Blood Pressure 67.00 mm[Hg] Sat Dec 10:56:49 EST 2023 Systolic Blood Pressure 131.00 mm[Hg] [facility] Dec 10:56:49 EST 2023 Diastolic Blood Pressure 67.00 mm[Hg] Sat Dec 10:56:49 EST 2023 Systolic Blood Pressure 148.00 [...] 25 21:45:23 EST 2023 Systolic Blood Pressure 132.00 mm[Hg] [...] Pressure 104.00 mm[Hg] SatJun 25 10:49:31 EST 2024 Systolic Blood Pressure 134.00 mm[Hg] SatJun 24 [...] Pressure 87.00 mm[Hg] SatJun 23 08:20:39 EST 2023 Heart Rate 93.00 /min SatJun 23 08:20 [...] 2023 Systolic Blood Pressure 152.00 mm[Hg] Sat Dec 21:33:39 EST 2023 Diastolic Blood Pressure 90.00 mm[Hg] Sat Dec 21:33:39 EST 2023 Systolic Blood Pressure 152.00 mm[Hg] SatJun 20 21:33:39 EST 4 Diastolic Blood Pressure 90.00 mm[Hg] Sat Dec 21:33:39 EST 2023 Systolic Blood Pressure 137.00 mm[Hg] Sat Dec 13:54:39 EST 2023 Diastolic Blood Pressure 70.00 mm[Hg] Sat Dec 13:54:39 EST 4 Systolic Blood Pressure 137.00 mm[Hg] Sat Dec 12:19:16 EST 2023 Diastolic Blood Pressure 70.00 mm[Hg] Sat Dec 12:19:16 EST 2023 Pulse Oximetry 95.00 % Sat Jun 20 12:19 :16 EST 2023 Heart Rate 87.00 /min Sat Dec 12:19 :16 EST 2023 Systolic Blood Pressure 132.00 mm[Hg] Sat Dec 10:11:43 EST 2023 Diastolic Blood Pressure 69.00 [...] Blood Pressure 132.00 mm[Hg] Sat Jun 20 07:58:01 EST 2023 Diastolic Blood Pressure 69.00 mm[Hg] Sat Jun 20 07:58:01 EST 4 Heart Rate 74.00 /min Sat Jun 20 07:58 :01 EST 2023 Pulse Oximetry 93.00 % Sat Jun 20 07:58 :01 EST 2023 Systolic Blood Pressure 142.00 mm[Hg] SatJun 19 20:39:17 EST 2023 Diastolic Blood Pressure 79.00 mm[Hg] SatJun 19 20:39:17 EST 2023 Systolic Blood Pressure 142.00 mm[Hg] SatJun 19 20:39:17 EST 2023 Diastolic Blood Pressure 79.00 mm[Hg] SatJun 19 20:39:17 EST 4 Systolic Blood Pressure 133.00 mm[Hg] SatJun 19 [...] 18 10:18:02 EST 2023 Systolic Blood Pressure 145.00 mm[Hg] SatJun 17 22:59:58 EST 2023 Diastolic Blood Pressure 69.00 mm[Hg] SatJun 17 22:59:58 EST 2023 Systolic Blood Pressure 145.00 mm[Hg] SatJun 17 22:59:58 EST 2023 Diastolic Blood Pressure 69.00 mm[Hg] SatJun 17 22:59:58 EST 2023 Systolic Blood Pressure 169.00 mm[Hg] SatJun 17 13:06:09 EST 2023 Diastolic Blood Pressure 98.00 mm[Hg] SatJun 17 13:06:09 EST 2023 Systolic Blood Pressure 142.00 mm[Hg] SatJun 17 10:06:33 EST 4 Diastolic Blood Pressure 71.00 mm[Hg] SatJun 17 10:06:33 EST 4 Systolic Blood Pressure 142.00 mm[Hg] SatJun 17 10:06:33 EST 4 Diastolic Blood Pressure 71.00 mm[Hg] SatJun 17 10:06:33 EST 2024 Systolic Blood Pressure 142.00 mm[Hg] SatJun 17 10:06:33 EST 4 Diastolic Blood Pressure 71.00 mm[Hg] SatJun 17 10:06:33 EST 2024 Systolic Blood Pressure 157.00 mm[Hg] SatJun 17 09:58:55 EST 2023 Diastolic Blood Pressure 87.00 mm[Hg] SatJun 17 09:58:55 EST 2023 Heart Rate 85.00 /min SatJun 17 09:58 :55 EST 2023 Pulse Oximetry 96.00 % SatJun 17 09:58 :55 EST 2023 Respiratory rate 20.00 /min SatJun 17 09:5 8:55 EST 2023 Body temperature 97.50 [degF] SatJun 17 09:5 8:55 EST 4 Systolic Blood Pressure 137.00 mm[Hg] SatJun 16 20:33:02 EST 2023 Diastolic Blood Pressure 82.00 mm[Hg] SatJun 16 20:33:02 EST 2023 Systolic Blood Pressure 137.00 mm[Hg] SatJun 16 20:33:02 EST 4 Diastolic Blood Pressure 82.00 mm[Hg] SatJun 16 20:33:02 EST 4 Systolic Blood Pressure 124.00 mm[Hg] SatJun 16 12:51:49 EST 4 Diastolic Blood Pressure 68.00 mm[Hg] SatJun 16 12:51:49 EST 4 Systolic Blood Pressure 124.00 mm[Hg] SatJun 16 08:29:41 EST 2024 Diastolic Blood Pressure 68.00 mm[Hg] SatJun 16 08:29:41 EST 2023 Systolic Blood Pressure 124.00 mm[Hg] SatJun 16 08:29:41 EST 4 Diastolic Blood Pressure 68.00 mm[Hg] SatJun 16 08:29:41 EST 4 Systolic Blood Pressure 124.00 mm[Hg] SatJun 16 08:29:41 EST 2023 Diastolic Blood Pressure 68.00 mm[Hg] SatJun 16 08:29:41 EST 2024 Systolic Blood Pressure 148.00 mm[Hg] Sat 16 23:11:00 EST 2023 Diastolic Blood Pressure 85.00 [...] 2023 Systolic Blood Pressure 160.00 mm[Hg] Sat 16 10:07:33 EST 2023 Diastolic Blood Pressure 83.00 mm[Hg] SatJun 15 10:07:33 EST 2023 Systolic Blood Pressure 160.00 mm[Hg] SatJun 15 10:07:33 EST 2023 Diastolic Blood Pressure 83.00 mm[Hg] SatJun 15 10:07:33 EST 2023 Systolic Blood Pressure 160.00 mm[Hg] SatJun 15 10:07:33 EST 2023 Diastolic Blood Pressure 83.00 mm[Hg] SatJun 15 10:07:33 EST 2023 Systolic Blood Pressure 128.00 mm[Hg] SatJun 14 20:41:15 EST 2023 Diastolic Blood Pressure 76.00 mm[Hg] Sat Dec 20:41:15 EST 2023 Systolic Blood Pressure 128.00 mm[Hg] SatJun 14 20:41:15 EST 2023 Diastolic Blood Pressure 76.00 mm[Hg] SatJun 14 20:41:15 EST 2023 Systolic Blood Pressure 116.00 mm[Hg] Sat Dec 15 13:21:57 EST 2023 Diastolic Blood Pressure 78.00 mm[Hg] SatJun 14 13:21:57 EST 2024 Systolic Blood Pressure 142.00 mm[Hg] Sun Dec 15 10:18:54 EST 2023 Diastolic Blood Pressure 85.00 mm[Hg] Sun Dec 15 10:18:54 EST 2023 Systolic Blood Pressure 142.00 mm[Hg] Sun Dec 15 10:18:54 EST 2023 Diastolic Blood Pressure 85.00 mm[Hg] Sun Dec 15 10:18:54 EST 2023 Systolic Blood Pressure 142.00 mm[Hg] Sun Dec 15 10:18:54 EST 2023 Diastolic Blood Pressure 85.00 mm[Hg] Sun Dec 15 10:18:54 EST 4 Systolic Blood Pressure 145.00 mm[Hg] Sat Dec [...] 72.00 mm[Hg] Sat Dec 14 09:50:34 EST 2023 Systolic Blood Pressure 121.00 mm[Hg] Sat Dec 14 09:50:34 EST 2023 Diastolic Blood Pressure 72.00 mm[Hg] Sat Dec 14 09:50:34 EST 2023 Systolic Blood Pressure 121.00 mm[Hg] Sat Dec 14 09:50:34 EST 2023 Diastolic Blood Pressure 72.00 mm[Hg] Sat Dec 14 09:50:34 EST 4 Systolic Blood Pressure 154.00 mm[Hg] SatJun 12 21:19:13 EST 2023 Diastolic Blood Pressure 88.00 mm[Hg] SatJun 12 21:19:13 EST 2023 Systolic Blood Pressure 154.00 mm[Hg] SatJun 12:19:13 EST 2023 Diastolic Blood Pressure 88.00 mm[Hg] SatJun 12 21:19:13 EST 2023 Systolic Blood Pressure 128.00 mm[Hg] SatJun 12 [...] Pressure 179.00 mm[Hg] SatJun 11 23:56:13 EST 2023 Diastolic Blood Pressure 97.00 mm[Hg] SatJun 11 23:56:13 EST 2023 Systolic Blood Pressure 179.00 mm[Hg] SatJun 11 23:56:13 EST 2023 Diastolic Blood Pressure 97.00 mm[Hg] SatJun 11 23:56:13 EST 2023 Systolic Blood Pressure 157.00 mm[Hg] SatJun 11 13:28:34 EST 2023 Diastolic Blood Pressure 82.00 mm[Hg] SatJun 11 13:28:34 EST 2023 Systolic Blood Pressure 106.00 mm[Hg] [...] Pressure 106.00 mm[Hg] SatJun 11 08:05:57 EST 4 Diastolic Blood Pressure 67.00 mm[Hg] SatJun 11 08:05:57 EST 2023 Heart Rate 72.00 /min SatJun 11 08:05 :57 EST 2023 Pulse Oximetry 93.00 % SatJun 11 08:05 :57 EST 4 Systolic Blood Pressure 153.00 mm[Hg] SatJun 10 21:22:17 EST 4 Diastolic Blood Pressure 86.00 mm[Hg] SatJun 10 21:22:17 EST 4 Systolic Blood Pressure 153.00 mm[Hg] SatJun 10 21:22:17 EST 2024 Diastolic Blood Pressure 86.00 mm[Hg] SatJun 10 21:22:17 EST 4 Systolic Blood Pressure 156.00 mm[Hg] SatJun 10 13:20:36 EST 2023 Diastolic Blood Pressure 90.00 mm[Hg] SatJun 10 13:20:36 EST 4 Systolic Blood Pressure 146.00 mm[Hg] SatJun 10 10:37:52 EST 2023 Diastolic Blood Pressure 57.00 mm[Hg] SatJun 10 10:37:52 EST 2023 Systolic Blood Pressure 146.00 mm[Hg] SatJun 10 10:37:52 EST 4 Diastolic Blood Pressure 57.00 mm[Hg] SatJun 10 10:37:52 EST 2023 Systolic Blood Pressure 146.00 mm[Hg] SatJun 10 10:37:52 EST 2023 Diastolic Blood Pressure 57.00 mm[Hg] SatJun 10 10:37:52 EST 4 Systolic Blood Pressure 146.00 mm[Hg] SatJun 10 10:31:13 EST 4 Diastolic Blood Pressure 57.00 mm[Hg] SatJun 10 10:31:13 2023 Pulse Oximetry 96.00 % SatJun 10 10:31 :13 EST 2023 Heart Rate 91.00 /min SatJun 10 10:31 :13 EST 2023 Body temperature 97.40 [degF] SatJun 10 10:3 1:13 EST 2023 Respiratory rate 18.00 /min SatJun 10 10:3 1:13 EST 4 Systolic Blood Pressure 141.00 mm[Hg] SatJun 09 20:49:19 EST 4 Diastolic Blood Pressure 86.00 mm[Hg] SatJun 09 20:49:19 EST 4 Systolic Blood Pressure 141.00 mm[Hg] SatJun 09 20:49:19 EST 4 Diastolic Blood Pressure 86.00 mm[Hg] SatJun 09 20:49:19 EST 2023 Body weight 239.90 [lb_av] SatJun 09 14:21 :21 EST 2023 Systolic Blood Pressure 138.00 mm[Hg] SatJun 09 13:44:01 EST 2023 Diastolic Blood Pressure 84.00 mm[Hg] SatJun 09 13:44:01 EST 2023 Systolic Blood Pressure 139.00 mm[Hg] SatJun 09 11:13:33 EST 2023 Diastolic Blood Pressure 74.00 mm[Hg] SatJun 09 11:13:33 EST 202 Systolic Blood Pressure 139.00 mm[Hg] SatJun 09 [...] 08 20:32:47 EST 2023 Systolic Blood Pressure 141.00 mm[Hg] [...] 08 00:43:29 EST 2023 Systolic Blood Pressure 144.00 mm[Hg] SatJun 07 [...] EST 2023 Diastolic Blood Pressure 62.00 mm[Hg] Sun Jun 07 08:13:20 EST 2023 Pulse Oximetry 91.00 [...] Diastolic Blood Pressure 73.00 mm[Hg] SatJun 06 10:45:18 EST 2023 Systolic Blood Pressure [...] Pressure 88.00 mm[Hg] SatJun 04 10:38:29 EST 202 Systolic Blood Pressure 168.00 mm[Hg] SatJun 04 10:38:29 EST 2023 Diastolic Blood Pressure 88.00 mm[Hg] SatJun 04 10:38:29 EST 2023 Systolic Blood Pressure 144.00 mm[Hg] SatJun 04 00:45:14 EST 2023 Diastolic Blood Pressure 82.00 mm[Hg] SatJun 04 00:45:14 EST 2023 Systolic Blood Pressure 144.00 mm[Hg] SatJun 04 00:45:14 EST 202 Diastolic Blood Pressure 82.00 mm[Hg] SatJun 04 00:45:14 EST 2024 Systolic Blood Pressure 146.00 mm[Hg] SatJun 03 12:47:58 EST 202 Diastolic Blood Pressure 82.00 mm[Hg] SatJun 03 12:47:58 EST 202 Systolic Blood Pressure 137.00 mm[Hg] SatJun 03 11:23:46 EST 2023 Diastolic Blood Pressure 73.00 mm[Hg] SatJun 03 11:23:46 EST 202 Systolic Blood Pressure 137.00 mm[Hg] SatJun 03 11:23:46 EST 202 Diastolic Blood Pressure 73.00 mm[Hg] SatJun 03 11:23:46 EST 202 Systolic Blood Pressure 137.00 mm[Hg] SatJun 03 11:23:46 EST 202 Diastolic Blood Pressure 73.00 mm[Hg] SatJun 03 11:23:46 EST 202 Systolic Blood Pressure 137.00 mm[Hg] SatJun 03 08:43:29 EST 202 Diastolic Blood Pressure 73.00 mm[Hg] SatJun 03 08:43:29 EST 2023 Heart Rate 69.00 /min SatJun 03 08:43 :29 EST 2023 Body temperature 98.60 [degF] SatJun 03 08:4 3:29 EST 2023 Respiratory rate 20.00 /min SatJun 03 08:4 3:29 EST 2023 Pulse Oximetry 96.00 % SatJun 03 08:43 :29 EST 2023 Systolic Blood Pressure 137.00 mm[Hg] SatJun 03 08:35:32 EST 2023 Diastolic Blood Pressure 73.00 mm[Hg] SatJun 03 08:35:32 EST 2023 Pulse Oximetry 96.00 % SatJun 03 08:35 :32 EST 2023 Respiratory rate 20.00 /min SatJun 03 08:3 5:32 EST 2023 Heart Rate 69.00 /min SatJun 03 08:35 :32 EST 2023 Body temperature 98.60 [degF] SatJun 03 08:3 5:32 EST 2023 Systolic Blood Pressure 144.00 mm[Hg] [...] 2023 Diastolic Blood Pressure 72.00 mm[Hg] Sat Nov 30 21:04:11 EST 2023 Systolic Blood Pressure [...] 29 10:04:55 EST 2023 Systolic Blood Pressure 150.00 mm[Hg] SatMay 28 23:39:43 EST 2023 Diastolic Blood Pressure 87.00 mm[Hg] SatMay 28 23:39:43 EST 2023 Systolic Blood Pressure 150.00 mm[Hg] SatMay 28 23:39:43 EST 2023 Diastolic Blood Pressure 87.00 mm[Hg] SatMay 28 23:39:43 EST 2023 Systolic Blood Pressure 115.00 mm[Hg] SatMay 28 13:23:13 EST 2023 Diastolic Blood Pressure 80.00 mm[Hg] SatMay 28 13:23:13 EST 2023 Systolic Blood Pressure 107.00 mm[Hg] SatMay 28 10:12:31 EST 2023 Diastolic Blood Pressure 77.00 mm[Hg] SatMay 28 10:12:31 EST 2023 Systolic Blood Pressure 107.00 mm[Hg] SatMay 28 10:12:31 EST 2023 Diastolic Blood Pressure 77.00 mm[Hg] SatMay 28 10:12:31 2023 Systolic Blood Pressure 107.00 mm[Hg] SatMay 28 10:12:31 2023 Diastolic Blood Pressure 77.00 mm[Hg] SatMay 28 10:12:31 EST 2023 Systolic Blood Pressure 107.00 mm[Hg] SatMay 28 09:20:39 EST 2023 Diastolic Blood Pressure 77.00 mm[Hg] SatMay 28 09:20:39 EST 2023 Pulse Oximetry 95.00 % SatMay 28 09:20 :39 2023 Heart Rate 65.00 /min SatMay 28 09:20 :39 2023 Systolic Blood Pressure 131.00 mm[Hg] SatMay [...] rate 22.00 /min SatMay 27 14:4 6:54 2023 Systolic Blood Pressure 127.00 mm[Hg] SatMay [...] 27 11:30:10 EST 2023 Systolic Blood Pressure 148.00 mm[Hg] SatMay 26 20:30:02 EST 2023 Diastolic Blood Pressure 76.00 mm[Hg] SatMay 26 20:30:02 EST 2023 Systolic Blood Pressure 148.00 mm[Hg] SatMay 26 20:30:02 EST 2023 Diastolic Blood Pressure 76.00 mm[Hg] SatMay 26 20:30:02 EST 2023 Systolic Blood Pressure 152.00 mm[Hg] SatMay 26 14:59:37 EST 2023 Diastolic Blood Pressure 88.00 mm[Hg] SatMay 26 14:59:37 EST 2023 Systolic Blood Pressure 147.00 mm[Hg] [...] Pressure 81.00 mm[Hg] SatMay 26 08:25:46 EST 2024 Heart Rate 70.00 /min SatMay 26 08:25 :46 EST 4 Systolic Blood Pressure 129.00 mm[Hg] SatMay 25 23:47:35 EST 202 Diastolic Blood Pressure 76.00 mm[Hg] SatMay 25 23:47:35 EST 202 Systolic Blood Pressure 129.00 mm[Hg] SatMay 25 23:47:35 EST 202 Diastolic Blood Pressure 76.00 mm[Hg] SatMay 25 23:47:35 EST 202 Systolic Blood Pressure 131.00 mm[Hg] SatMay 25 14:16:13 EST 2024 Diastolic Blood Pressure 71.00 mm[Hg] SatMay 25 14:16:13 EST 2024 Systolic Blood Pressure 135.00 mm[Hg] SatMay 25 [...] Pressure 146.00 mm[Hg] SatMay 24 13:16:31 EST 202 Diastolic Blood Pressure 76.00 mm[Hg] SatMay 24 13:16:31 EST 202 Systolic Blood Pressure 126.00 mm[Hg] SatMay 24 11:16:53 EST 202 Diastolic Blood Pressure 72.00 mm[Hg] SatMay 24 [...] Blood Pressure 127.00 mm[Hg] SatMay 21 10:36:01 2023 Diastolic Blood Pressure 69.00 mm[Hg] SatMay 21 10:36:01 EST 2023 Systolic Blood Pressure 127.00 mm[Hg] SatMay 21 10:36:01 2023 Diastolic Blood Pressure 69.00 mm[Hg] SatMay [...] Pressure 85.00 mm[Hg] SatMay 18 20:48:02 EST 4 Body weight 234.80 [lb_av] SatMay 18 16:41 [...] Pressure 94.00 mm[Hg] SatMay 17 10:21:09 EST 2024 Systolic Blood Pressure 124.00 mm[Hg] SatMay 17 10:21:09 EST 202 Diastolic Blood Pressure 94.00 mm[Hg] SatMay 17 [...] 202 Systolic Blood Pressure 131.00 mm[Hg] SatMay 15 [...] 97.70 [degF] SatMay 13 22:4 3:00 EST 4 Systolic Blood Pressure 148.00 mm[Hg] SatMay 13 20:45:28 EST 2023 Diastolic Blood Pressure 76.00 mm[Hg] SatMay 13 20:45:28 EST 4 Systolic Blood Pressure 148.00 mm[Hg] SatMay 13 20:45:28 EST 2023 Diastolic Blood Pressure 76.00 mm[Hg] SatMay 13 20:45:28 EST 2024 Systolic Blood Pressure 143.00 mm[Hg] SatMay 13 13:38:55 EST 2023 Diastolic Blood Pressure 76.00 mm[Hg] SatMay 13 13:38:55 EST 2023 Systolic Blood Pressure 162.00 mm[Hg] SatMay 13 11:57:55 EST 2023 Diastolic Blood Pressure 80.00 mm[Hg] SatMay 13 11:57:55 EST 4 Heart Rate 93.00 /min SatMay 13 11:57 :55 EST 2023 Body temperature 98.00 [degF] SatMay 13 11:5 7:55 EST 4 Respiratory rate 20.00 /min SatMay 13 11:5 7:55 EST 2023 Pulse Oximetry 95.00 % SatMay 13 11:57 :55 EST 2023 Systolic Blood Pressure 162.00 mm[Hg] SatMay 13 11:57:12 EST 2023 Diastolic Blood Pressure 80.00 mm[Hg] SatMay 13 11:57:12 EST 2023 Systolic Blood Pressure 162.00 mm[Hg] SatMay 13 11:57:12 EST 2023 Diastolic Blood Pressure 80.00 mm[Hg] SatMay 13 11:57:12 EST 202 Systolic Blood Pressure 162.00 mm[Hg] SatMay 13 11:57:12 EST 2024 Diastolic Blood Pressure 80.00 mm[Hg] SatMay 13 11:57:12 EST 2024 Systolic Blood Pressure 139.00 mm[Hg] SatMay 12 20:52:10 EST 4 Diastolic Blood Pressure 77.00 mm[Hg] SatMay 12 20:52:10 EST 4 Systolic Blood Pressure 139.00 mm[Hg] SatMay 12 20:52:10 EST 2024 Diastolic Blood Pressure 77.00 mm[Hg] SatMay 12 20:52:10 EST 4 Systolic Blood Pressure 142.00 mm[Hg] SatMay 12 13:37:58 EST 2023 Diastolic Blood Pressure 78.00 mm[Hg] SatMay 12 13:37:58 EST 2023 Systolic Blood Pressure 143.00 mm[Hg] SatMay 12 10:15:27 EST 202 Diastolic Blood Pressure 77.00 mm[Hg] SatMay 12 10:15:27 EST 202 Systolic Blood Pressure 143.00 mm[Hg] SatMay 12 10:15:27 EST 202 Diastolic Blood Pressure 77.00 mm[Hg] SatMay 12 10:15:27 EST 202 Systolic Blood Pressure 143.00 mm[Hg] SatMay 12 10:15:27 EST 2023 Diastolic Blood Pressure 77.00 mm[Hg] SatMay 12 10:15:27 EST 2023 Systolic Blood Pressure 155.00 mm[Hg] SatMay 12 00:27:22 EST 2023 Diastolic Blood Pressure 90.00 mm[Hg] SatMay 12 00:27:22 EST 2023 Systolic Blood Pressure 155.00 mm[Hg] SatMay 12 00:27:22 EST 202 Diastolic Blood Pressure 90.00 mm[Hg] SatMay 12 00:27:22 EST 4 Body weight 296.80 [lb_av] SatMay 11 13:07 :06 EST 2023 Systolic Blood Pressure 156.00 mm[Hg] SatMay 11 [...] 71.00 /min SatMay 11 07:33 :53 EST 2024 Pulse Oximetry 93.00 % SatMay 11 07:33 [...] Pressure 71.00 mm[Hg] SatMay 07 09:42:41 EST 2024 Systolic Blood Pressure 138.00 mm[Hg] SatMay 07 09:42:41 EST 2023 Diastolic Blood Pressure 71.00 mm[Hg] SatMay 07 09:42:41 EST 2023 Systolic Blood Pressure 138.00 mm[Hg] SatMay 07 08:21:53 EST 2023 Diastolic Blood Pressure 71.00 mm[Hg] SatMay 07 08:21:53 EST 2023 Pulse Oximetry 94.00 % SatMay 07 08:21 :53 EST 4 Respiratory rate 18.00 /min SatMay 07 08:2 [...] Pressure 91.00 mm[Hg] SatMay 06 16:06:18 EST 2023 Heart Rate 63.00 /min SatMay 06 16:06 :18 EST 2023 Body temperature 98.10 [degF] SatMay 06 16:0 6:18 EST 2023 Respiratory rate 20.00 /min SatMay 06 16:0 6:18 2023 Pulse Oximetry 95.00 % SatMay 06 16:06 :18 EST 4 Systolic Blood Pressure 145.00 mm[Hg] SatMay 06 14:50:15 EST 202 Diastolic Blood Pressure 80.00 mm[Hg] SatMay 06 14:50:15 EST 2023 Systolic Blood Pressure 151.00 mm[Hg] SatMay 06 10:45:33 EST 2023 Diastolic Blood Pressure 91.00 mm[Hg] SatMay 06 10:45:33 EST 2023 Systolic Blood Pressure 151.00 mm[Hg] SatMay 06 10:45:33 EST 2023 Diastolic Blood Pressure 91.00 mm[Hg] SatMay 06 10:45:33 EST 2023 Systolic Blood Pressure 151.00 mm[Hg] SatMay 06 10:45:33 EST 2023 Diastolic Blood Pressure 91.00 mm[Hg] SatMay 06 10:45:33 EST 2023 Systolic Blood Pressure 129.00 mm[Hg] SatMay 05 20:42:08 EST 2023 Diastolic Blood Pressure 89.00 mm[Hg] SatMay 05 20:42:08 EST 2023 Systolic Blood Pressure 129.00 mm[Hg] SatMay 05 20:42:08 EST 2023 Diastolic Blood Pressure 89.00 mm[Hg] SatMay 05 20:42:08 EST 202 Systolic Blood Pressure 150.00 mm[Hg] SatMay 05 [...] Pressure 78.00 mm[Hg] SatMay 04 20:46:32 EST 202 Systolic Blood Pressure 132.00 mm[Hg] SatMay 04 [...] Rate 88.00 /min SatMay 04 04:34 :00 EST 2023 Respiratory rate 18.00 /min SatMay 04 [...] Pressure 136.00 mm[Hg] SatMay 02 20:44:26 EDT 4 Diastolic Blood Pressure 78.00 mm[Hg] SatMay 02 20:44:26 EDT 4 Systolic Blood Pressure 127.00 mm[Hg] SatMay 02 13:22:07 EDT 4 Diastolic Blood Pressure 65.00 mm[Hg] SatMay 02 13:22:07 EDT 4 Systolic Blood Pressure 127.00 mm[Hg] SatMay 02 [...] Pressure 65.00 mm[Hg] SatMay 02 07:51:38 EDT 4 Heart Rate 72.00 /min SatMay 02 07:51 :38 EDT 4 Systolic Blood Pressure 138.00 mm[Hg] SatMay 01 20:51:25 EDT 2023 Diastolic Blood Pressure 84.00 mm[Hg] SatMay 01 20:51:25 EDT 4 Systolic Blood Pressure 138.00 mm[Hg] SatMay 01 20:51:25 EDT 4 Diastolic Blood Pressure 84.00 mm[Hg] SatMay 01 20:51:25 EDT 4 Systolic Blood Pressure 148.00 mm[Hg] SatMay 01 14:07:25 EDT 4 Diastolic Blood Pressure 84.00 mm[Hg] SatMay 01 14:07:25 EDT 2023 Systolic Blood Pressure 149.00 mm[Hg] SatMay 01 09:03:58 EDT 2023 Diastolic Blood Pressure 93.00 mm[Hg] SatMay 01 09:03:58 EDT 4 Systolic Blood Pressure 149.00 mm[Hg] SatMay 01 09:03:58 EDT 4 Diastolic Blood Pressure 93.00 mm[Hg] SatMay 01 09:03:58 EDT 2023 Systolic Blood Pressure 149.00 mm[Hg] SatMay 01 09:03:58 EDT 2023 Diastolic Blood Pressure 93.00 mm[Hg] SatMay 01 09:03:58 EDT 4 Systolic Blood Pressure 144.00 mm[Hg] Samantha Oct 31 20:41:05 EDT 2023 Diastolic Blood Pressure 71.00 mm[Hg] Samantha Oct 31 20:41:05 EDT 2023 Systolic Blood Pressure 144.00 mm[Hg] Samantha Oct 31 20:41:05 EDT 2023 Diastolic Blood Pressure 71.00 mm[Hg] Samantha Oct 31 20:41:05 EDT 2023 Systolic Blood Pressure 139.00 mm[Hg] Samantha Oct 31 13:46:05 EDT 2023 Diastolic Blood Pressure 85.00 mm[Hg] Samantha Oct 31 13:46:05 EDT 2023 Systolic Blood Pressure 139.00 mm[Hg] Samantha Oct 31 10:43:28 EDT 2023 Diastolic Blood Pressure 77.00 mm[Hg] [...] 139.00 mm[Hg] Samantha Oct 31 07:46:58 EDT 2023 Diastolic Blood Pressure 77.00 mm[Hg] Samantha Oct 31 07:46:58 EDT 2023 Pulse Oximetry 94.00 % Samantha Oct 31 07:46 :58 EDT 2023 Heart Rate 85.00 /min Samantha Oct 31 07:46 :58 EDT 4 Systolic Blood Pressure 112.00 mm[Hg] Samantha Oct 31 07:44:42 EDT 2023 Diastolic Blood Pressure 64.00 mm[Hg] Samantha Oct 31 07:44:42 EDT 2023 Pulse Oximetry 95.00 % Samantha Oct 31 07:44 :42 EDT 2023 Heart Rate 82.00 /min Samantha Oct 31 07:44 :42 EDT 4 Systolic Blood Pressure 145.00 mm[Hg] Wed Oct 30 20:51:06 EDT 2024 Diastolic Blood Pressure 72.00 mm[Hg] Wed Oct 30 20:51:06 EDT 4 Systolic Blood Pressure 145.00 mm[Hg] Wed Oct 30 20:51:06 EDT 2023 Diastolic Blood Pressure 72.00 mm[Hg] Wed Oct 30 20:51:06 EDT 2023 Systolic Blood Pressure 130.00 mm[Hg] Wed Oct 30 15:53:10 EDT 2023 Diastolic Blood Pressure 68.00 mm[Hg] Wed Oct 30 15:53:10 EDT 2023 Heart Rate 68.00 /min Wed Oct 30 15:53 :10 EDT 2023 Pulse Oximetry 96.00 % Wed Oct 30 15:53 :10 EDT 2023 Respiratory rate 20.00 /min Wed Oct 30 15:5 3:10 EDT 2023 Body temperature 97.40 [degF] Wed Oct 30 15:5 3:10 EDT 2023 Systolic Blood Pressure 153.00 mm[Hg] Wed Oct 30 15:41:03 EDT 2023 Diastolic Blood Pressure 87.00 mm[Hg] Wed Oct 30 15:41:03 EDT 2023 Systolic Blood Pressure 130.00 mm[Hg] [...] 130.00 mm[Hg] Tue Oct 29 13:14:52 EDT 2023 Diastolic Blood Pressure 83.00 mm[Hg] Tue Oct 29 13:14:52 EDT 4 Systolic Blood Pressure 126.00 mm[Hg] Tue Oct 29 10:25:20 EDT 2024 Diastolic Blood Pressure 86.00 mm[Hg] Tue Oct 29 10:25:20 EDT 2024 Systolic Blood Pressure 126.00 mm[Hg] Tue Oct 29 10:25:20 EDT 2024 Diastolic Blood Pressure 86.00 mm[Hg] Tue Oct 29 10:25:20 EDT 2024 Systolic Blood Pressure 126.00 mm[Hg] Tue Oct 29 10:25:20 EDT 2024 Diastolic Blood Pressure 86.00 mm[Hg] Tue Oct 29 10:25:20 EDT 4 Systolic Blood Pressure 148.00 mm[Hg] Tue Oct 29 00:15:14 EDT 202 Diastolic Blood Pressure 79.00 mm[Hg] Tue Oct 29 00:15:14 EDT 2024 Systolic Blood Pressure 148.00 mm[Hg] Tue Oct 29 00:15:14 EDT 4 Diastolic Blood Pressure 79.00 mm[Hg] Tue Oct 29 00:15:14 EDT 2024 Systolic Blood Pressure 167.00 mm[Hg] Mon Oct 28 13:52:27 EDT 2024 Diastolic Blood Pressure 90.00 mm[Hg] Mon Oct 28 13:52:27 EDT 2024 Systolic Blood Pressure 150.00 mm[Hg] [...] 27 23:31:19 EDT 2024 Systolic Blood Pressure 139.00 mm[Hg] Sun Oct 27 14:03:36 EDT 2024 Diastolic Blood Pressure 84.00 mm[Hg] Sun Oct 27 14:03:36 EDT 2024 Systolic Blood Pressure 130.00 mm[Hg] Sun Oct 27 10:26:23 EDT 2024 Diastolic Blood Pressure 66.00 mm[Hg] Sun Oct 27 10:26:23 EDT 202 Systolic Blood Pressure 130.00 mm[Hg] Sun Oct 27 10:26:23 EDT 202 Diastolic Blood Pressure 66.00 mm[Hg] Sun Oct 27 10:26:23 EDT 2024 Systolic Blood Pressure 130.00 mm[Hg] Sun Oct 27 10:26:23 EDT 202 Diastolic Blood Pressure 66.00 mm[Hg] Sun Oct 27 10:26:23 EDT 202 Systolic Blood Pressure 149.00 mm[Hg] Sat Oct [...] 119.00 mm[Hg] Sat Oct 26 09:54:23 EDT 4 Diastolic Blood Pressure 70.00 mm[Hg] Sat Oct 26 09:54:23 EDT 4 Systolic Blood Pressure 119.00 mm[Hg] Sat Oct 26 09:54:23 EDT 2024 Diastolic Blood Pressure 70.00 mm[Hg] Sat Oct 26 09:54:23 EDT 4 Systolic Blood Pressure 119.00 mm[Hg] Sat Oct 26 09:54:23 EDT 2024 Diastolic Blood Pressure 70.00 mm[Hg] Sat Oct 26 09:54:23 EDT 4 Systolic Blood Pressure 119.00 mm[Hg] Sat Oct 26 08:33:16 EDT 4 Diastolic Blood Pressure 70.00 mm[Hg] Sat Oct 26 08:33:16 EDT 4 Heart Rate 77.00 /min Sat Oct 26 08:33 :16 EDT 4 Systolic Blood Pressure 141.00 mm[Hg] Fri Oct 25 21:04:50 EDT 2024 Diastolic Blood Pressure 73.00 mm[Hg] Fri Oct 25 21:04:50 EDT 4 Systolic Blood Pressure 141.00 mm[Hg] Fri Oct 25 21:04:50 EDT 4 Diastolic Blood Pressure 73.00 mm[Hg] Fri Oct 25 21:04:50 EDT 2023 Systolic Blood Pressure 155.00 mm[Hg] Fri Oct 25 15:41:07 EDT 2023 Diastolic Blood Pressure 88.00 mm[Hg] Fri Oct 25 15:41:07 EDT 4 Systolic Blood Pressure 136.00 mm[Hg] [...] 82.00 mm[Hg] Wed Oct 23 20:48:32 EDT 2023 Systolic Blood Pressure 142.00 mm[Hg] Wed Oct 23 13:32:12 EDT 2023 Diastolic Blood Pressure 59.00 mm[Hg] Wed Oct 23 13:32:12 EDT 4 Systolic Blood Pressure 142.00 mm[Hg] Wed Oct 23 13:32:12 EDT 4 Diastolic Blood Pressure 59.00 mm[Hg] Wed Oct 23 13:32:12 EDT 2023 Systolic Blood Pressure 142.00 mm[Hg] Wed Oct 23 13:32:12 EDT 2023 Diastolic Blood Pressure 59.00 mm[Hg] Wed Oct 23 13:32:12 EDT 2023 Systolic Blood Pressure 142.00 mm[Hg] Wed Oct 23 13:32:12 EDT 2023 Diastolic Blood Pressure 59.00 mm[Hg] Wed Oct 23 13:32:12 EDT 4 Systolic Blood Pressure 142.00 mm[Hg] Wed Oct 23 13:32:12 EDT 4 Diastolic Blood Pressure 59.00 mm[Hg] Wed Oct 23 13:32:12 EDT 2023 Heart Rate 67.00 /min Wed Oct 23 13:32 :12 EDT 2023 Pulse Oximetry 93.00 % Wed Oct 23 13:32 :12 EDT 2023 Respiratory rate 20.00 /min Wed Oct 23 [...] 137.00 mm[Hg] Tue Oct 22 13:27:07 EDT 2023 Diastolic Blood Pressure 77.00 mm[Hg] Tue Oct [...] EDT 2023 Diastolic Blood Pressure 89.00 mm[Hg] Sat Oct 21 23:43:00 EDT 2023 Heart Rate 70.00 /min Sat Oct 21 23:43 :00 EDT 2023 Respiratory rate 20.00 /min Sat 21 23:4 3:00 EDT 2023 Pulse Oximetry 95.00 % Sat Oct 21 23:43 :00 EDT 2023 Body temperature 98.00 [degF] Sat Oct 21 23:4 3:00 EDT 2023 Systolic Blood Pressure 145.00 mm[Hg] Mon Oct 21 20:47:38 EDT 2023 Diastolic Blood Pressure 78.00 mm[Hg] Mon Oct 21 20:47:38 EDT 4 Systolic Blood Pressure 145.00 mm[Hg] Mon Oct [...] 21 13:01:03 EDT 4 Systolic Blood Pressure 136.00 mm[Hg] Sun Oct [...] 146.00 mm[Hg] Sun Oct 20 09:48:18 EDT 4 Diastolic Blood Pressure 72.00 mm[Hg] Sun Oct 20 09:48:18 EDT 4 Systolic Blood Pressure 146.00 mm[Hg] Sun Oct 20 07:51:18 EDT 2023 Diastolic Blood Pressure 72.00 mm[Hg] Sun Oct 20 07:51:18 EDT 2023 Heart Rate 70.00 /min Sun Oct 20 07:51 :18 EDT 2023 Systolic Blood Pressure 152.00 mm[Hg] Sat Oct 19 20:37:43 EDT 2024 Diastolic Blood Pressure 78.00 mm[Hg] Sat Oct 19 20:37:43 EDT 4 Systolic Blood Pressure 152.00 mm[Hg] Sat Oct 19 20:37:43 EDT 2023 Diastolic Blood Pressure 78.00 mm[Hg] Sat Oct 19 20:37:43 EDT 2023 Systolic Blood Pressure 145.00 mm[Hg] Sat Oct 19 13:52:30 EDT 2023 Diastolic Blood Pressure 74.00 mm[Hg] Sat Oct 19 13:52:30 EDT 2023 Systolic Blood Pressure 138.00 mm[Hg] Sat Oct 19 11:02:58 EDT 4 Diastolic Blood Pressure 75.00 mm[Hg] Sat Oct 19 11:02:58 EDT 4 Systolic Blood Pressure 138.00 mm[Hg] Sat Oct 19 11:02:58 EDT 4 Diastolic Blood Pressure 75.00 mm[Hg] Sat Oct 19 11:02:58 EDT 4 Systolic Blood Pressure 138.00 mm[Hg] Sat Oct 19 11:02:58 EDT 4 Diastolic Blood Pressure 75.00 mm[Hg] Sat Oct 19 11:02:58 EDT 4 Systolic Blood Pressure 130.00 mm[Hg] Fri Oct 18 23:10:22 EDT 4 Diastolic Blood Pressure 71.00 mm[Hg] Fri Oct 18 23:10:22 EDT 4 Systolic Blood Pressure 130.00 mm[Hg] Fri Oct 18 23:10:22 EDT 2023 Diastolic Blood Pressure 71.00 mm[Hg] Fri Oct 18 23:10:22 EDT 4 Systolic Blood Pressure 148.00 mm[Hg] Fri Oct [...] 17 22:43:47 EDT 2023 Systolic Blood Pressure 148.00 mm[Hg] Samantha Oct [...] 135.00 mm[Hg] Wed Oct 16 14:51:13 EDT 2023 Diastolic Blood Pressure 68.00 mm[Hg] Wed Oct 16 14:51:13 EDT 2023 Heart Rate 78.00 /min Wed Oct 16 14:51 :13 EDT 2023 Pulse Oximetry 93.00 % Wed Oct 16 14:51 :13 EDT 2023 Respiratory rate 22.00 /min Wed Oct 16 14:5 1:13 EDT 2023 Body temperature 97.50 [degF] Wed Oct 16 14:5 1:13 EDT 2023 Body temperature 97.50 [degF] Wed Oct 16 14:5 1:13 EDT 4 Systolic Blood Pressure 135.00 mm[Hg] Wed Oct 16 13:32:12 EDT 2023 Diastolic Blood Pressure 68.00 mm[Hg] Wed Oct 16 13:32:12 EDT 2023 Systolic Blood Pressure 135.00 mm[Hg] Wed Oct 16 13:32:12 EDT 4 Diastolic Blood Pressure 68.00 mm[Hg] Wed Oct 16 13:32:12 EDT 4 Systolic Blood Pressure 135.00 mm[Hg] Wed Oct 16 13:32:12 EDT 4 Diastolic Blood Pressure 68.00 mm[Hg] Wed Oct 16 13:32:12 EDT 4 Systolic Blood Pressure 135.00 mm[Hg] Wed Oct 16 13:32:12 EDT 4 Diastolic Blood Pressure 68.00 mm[Hg] Wed Oct 16 13:32:12 EDT 2023 Body temperature 97.50 [degF] Wed Oct 16 04:2 2:53 EDT 2023 Systolic Blood Pressure 135.00 mm[Hg] Tue Oct 15 20:59:20 EDT 4 Diastolic Blood Pressure 75.00 mm[Hg] Tue Oct 15 20:59:20 EDT 2024 Systolic Blood Pressure 135.00 mm[Hg] Tue Oct 15 20:59:20 EDT 4 Diastolic Blood Pressure 75.00 mm[Hg] Tue Oct [...] EDT 2023 Systolic Blood Pressure 158.00 mm[Hg] e Oct 15 10:36:12 EDT 2023 Diastolic Blood Pressure 84.00 mm[Hg] e Oct 15 10:36:12 EDT 2023 Body temperature 97.70 [degF] e Oct 15 10:3 6:12 EDT 2023 Systolic Blood Pressure 158.00 mm[Hg] e Oct 15 08:21:18 EDT 2023 Diastolic Blood Pressure 84.00 mm[Hg] Tue Oct 15 08:21:18 EDT 2023 Heart Rate 81.00 /min e Oct 15 08:21 :18 EDT 2023 Systolic Blood Pressure 148.00 mm[Hg] Mon Oct 14 21:19:21 EDT 2023 Diastolic Blood Pressure 88.00 mm[Hg] Mon Oct 14 21:19:21 EDT 2023 Systolic Blood Pressure 148.00 mm[Hg] Mon Oct 14 21:19:21 EDT 2023 Diastolic Blood Pressure 88.00 mm[Hg] Mon Oct 14 21:19:21 EDT 2023 Body temperature 97.80 [degF] Mon Oct 14 21:1 9:21 EDT 2023 Body weight 299.80 [lb_av] Mon Oct 14 15:13 :54 EDT 2023 Systolic Blood Pressure 154.00 mm[Hg] Mon Oct 14 13:40:42 EDT 2023 Diastolic Blood Pressure 91.00 mm[Hg] Mon Oct 14 13:40:42 EDT 2023 Body temperature 98.20 [degF] Mon Oct 14 12:2 4:44 EDT 2024 Systolic Blood Pressure 132.00 mm[Hg] Mon Oct 14 09:55:36 EDT 2024 Diastolic Blood Pressure 80.00 mm[Hg] Mon Oct 14 09:55:36 EDT 2023 Systolic Blood Pressure 132.00 mm[Hg] Mon Oct 14 09:55:36 EDT 2023 Diastolic Blood Pressure 80.00 mm[Hg] Mon Oct 14 09:55:36 EDT 2023 Systolic Blood Pressure 132.00 mm[Hg] Mon Oct 14 09:55:36 EDT 2023 Diastolic Blood Pressure 80.00 mm[Hg] Mon Oct 14 09:55:36 EDT 2023 Body temperature 97.60 [degF] Sun Oct 13 23:3 1:54 EDT 2023 Systolic Blood Pressure 158.00 mm[Hg] Sun Oct 13 22:23:15 EDT 2023 Diastolic Blood Pressure 82.00 mm[Hg] Sun Oct 13 22:23:15 EDT 2023 Systolic Blood Pressure 158.00 mm[Hg] Sun Oct 13 22:23:15 EDT 2023 Diastolic Blood Pressure 82.00 mm[Hg] Sun Oct 13 22:23:15 EDT 4 Systolic Blood Pressure 146.00 mm[Hg] Sun Oct 13 13:48:02 EDT 2023 Diastolic Blood Pressure 84.00 mm[Hg] Sun Oct 13 13:48:02 EDT 2023 Systolic Blood Pressure 141.00 mm[Hg] Sun Oct 13 09:43:02 EDT 2023 Diastolic Blood Pressure 83.00 mm[Hg] Sun Oct 13 09:43:02 EDT 4 Systolic Blood Pressure 141.00 mm[Hg] Sun Oct 13 09:43:02 EDT 4 Diastolic Blood Pressure 83.00 mm[Hg] Sun Oct 13 09:43:02 EDT 4 Systolic Blood Pressure 141.00 mm[Hg] Sun Oct 13 09:43:02 EDT 2023 Diastolic Blood Pressure 83.00 mm[Hg] Sun Oct 13 09:43:02 EDT 2023 Body temperature 98.10 [degF] Sun Oct 13 09:4 3:02 EDT 2023 Body temperature 98.30 [degF] Sun Oct 13 00:4 4:47 EDT 2023 Systolic Blood Pressure 171.00 mm[Hg] Sat Oct 12 22:21:30 EDT 2024 Diastolic Blood Pressure 91.00 mm[Hg] Sat Oct [...] [degF] Sat Oct 12 11:1 1:36 EDT 4 Systolic Blood Pressure 140.00 mm[Hg] [...] mm[Hg] Sat Oct 12 11:10:01 EDT 4 Body temperature 97.80 [degF] Fri Oct 11 21:5 4:20 EDT 2023 Systolic Blood Pressure 152.00 mm[Hg] Fri Oct 11 20:58:35 EDT 4 Diastolic Blood Pressure 76.00 mm[Hg] Fri Oct 11 20:58:35 EDT 4 Systolic Blood Pressure 152.00 mm[Hg] Fri Oct 11 20:58:35 EDT 4 Diastolic Blood Pressure 76.00 mm[Hg] Fri Oct 11 20:58:35 EDT 4 Body temperature 97.60 [degF] Fri Oct 11 [...] Systolic Blood Pressure 168.00 mm[Hg] Wed Oct 20:16:18 EDT 2023 Diastolic Blood Pressure 78.00 mm[Hg] Wed Oct 20:16:18 EDT 2023 Systolic Blood Pressure 168.00 mm[Hg] Wed Oct 20:16:18 EDT 2023 Diastolic Blood Pressure 78.00 mm[Hg] Wed Oct 20:16:18 EDT 2023 Systolic Blood Pressure 166.00 mm[Hg] Wed Oct 09 13:08:49 EDT 4 Diastolic Blood Pressure 85.00 mm[Hg] Wed Oct [...] 148.00 mm[Hg] Wed Oct 09 10:04:42 EDT 2023 Diastolic Blood Pressure 78.00 mm[Hg] Wed Oct 09 10:04:42 EDT 2023 Heart Rate 66.00 /min Wed Oct 09 10:04 :42 EDT 2023 Pulse Oximetry 94.00 % Wed Oct 09 10:04 :42 EDT 2023 Respiratory rate 18.00 /min Wed Oct 09 10:0 4:42 EDT 4 Body temperature 97.40 [degF] Wed Oct 09 10:0 4:42 EDT 4 Systolic Blood Pressure 153.00 mm[Hg] Wed Oct 09 03:01:54 EDT 2023 Diastolic Blood Pressure 89.00 mm[Hg] Wed Oct 09 03:01:54 EDT 4 Systolic Blood Pressure 153.00 mm[Hg] Wed Oct 09 03:01:54 EDT 4 Diastolic Blood Pressure 89.00 mm[Hg] Wed Oct 09 03:01:54 EDT 4 Systolic Blood Pressure 146.00 mm[Hg] Tue Oct 08 13:19:00 EDT 4 Diastolic Blood Pressure 85.00 mm[Hg] Tue Oct 08 13:19:00 EDT 4 Systolic Blood Pressure 144.00 mm[Hg] Tue Oct 08 10:20:36 EDT 2023 Diastolic Blood Pressure 88.00 mm[Hg] Tue Oct 08 10:20:36 EDT 2023 Systolic Blood Pressure 144.00 mm[Hg] Tue Oct 08 10:20:36 EDT 2023 Diastolic Blood Pressure 88.00 mm[Hg] Tue Oct 08 10:20:36 EDT 4 Systolic Blood Pressure 144.00 mm[Hg] Maoe Oct 08 10:20:36 EDT 4 Diastolic Blood Pressure 88.00 mm[Hg] Maoe Oct 08 10:20:36 EDT 4 Systolic Blood Pressure 144.00 mm[Hg] Maoe Oct 08 08:12:20 EDT 2023 Diastolic Blood Pressure 88.00 mm[Hg] Maoe Oct 08 08:12:20 EDT 2023 Heart Rate 65.00 /min e Oct 08 08:12 :20 EDT 2023 Systolic Blood Pressure 152.00 mm[Hg] Mon Oct 07 20:42:07 EDT 4 Diastolic Blood Pressure 75.00 mm[Hg] Mon Oct 07 20:42:07 EDT 2023 Systolic Blood Pressure 152.00 mm[Hg] Mon Oct 07 20:42:07 EDT 2023 Diastolic Blood Pressure 75.00 mm[Hg] Mon Oct 07 20:42:07 EDT 2023 Body weight 293.40 [lb_av] Mon Oct 07 14:08 :32 EDT 2023 Systolic Blood Pressure 144.00 mm[Hg] Mon Oct 07 13:25:17 EDT 4 Diastolic Blood Pressure 86.00 mm[Hg] Mon Oct 07 13:25:17 EDT 4 Systolic Blood Pressure 153.00 mm[Hg] Mon Oct 07 09:03:11 EDT 2023 Diastolic Blood Pressure 97.00 mm[Hg] Mon Oct 07 09:03:11 EDT 4 Systolic Blood Pressure 153.00 mm[Hg] Mon Oct 07 09:03:11 EDT 4 Diastolic Blood Pressure 97.00 mm[Hg] Mon Oct 07 09:03:11 EDT 4 Systolic Blood Pressure 153.00 mm[Hg] Mon Oct 07 09:03:11 EDT 4 Diastolic Blood Pressure 97.00 mm[Hg] Mon Oct 07 09:03:11 EDT 4 Systolic Blood Pressure 133.00 mm[Hg] Sun Oct [...] 05 20:43:35 EDT 2023 Systolic Blood Pressure 159.00 mm[Hg] [...] 03 09:36:34 EDT 2023 Systolic Blood Pressure 141.00 mm[Hg] Wed Oct 02 20:40:13 EDT 4 Diastolic Blood Pressure 75.00 mm[Hg] Wed Oct [...] 72.00 mm[Hg] Wed Oct 02 10:12:22 EDT 4 Heart Rate 66.00 /min Wed Oct 02 10:12 :22 EDT 2023 Pulse Oximetry 94.00 % Wed Oct 02 10:12 :22 EDT 2023 Respiratory rate 20.00 /min Wed Oct 02 [...] 72.00 mm[Hg] Wed Oct 02 09:45:53 EDT 2023 Systolic Blood Pressure 152.00 mm[Hg] Wed Oct 02 08:14:29 EDT 2023 Diastolic Blood Pressure 79.00 mm[Hg] SatApr 01 08:14:29 EDT 2023 Pulse Oximetry 96.00 % SatApr 01 08:14 :29 EDT 2023 Heart Rate 80.00 /min SatApr 01 08:14 :29 EDT 2023 Systolic Blood Pressure 126.00 mm[Hg] SatApr 01 08:12:43 EDT 2023 Diastolic Blood Pressure 72.00 mm[Hg] SatApr 01 08:12:43 EDT 2023 Heart Rate 66.00 /min SatApr 01 08:12 :43 EDT 2023 Pulse Oximetry 94.00 % SatApr 01 08:12 :43 EDT 2023 Body temperature 98.60 [degF] [facility] Apr 01 08:1 2:43 EDT 2023 Systolic Blood Pressure 138.00 mm[Hg] e Oct 01 20:54:08 EDT 4 Diastolic Blood Pressure 86.00 mm[Hg] Tue Oct 01 20:54:08 EDT 4 Systolic Blood Pressure 138.00 mm[Hg] Tue Oct 01 20:54:08 EDT 4 Diastolic Blood Pressure 86.00 mm[Hg] Tue Oct 01 20:54:08 EDT 4 Systolic Blood Pressure 144.00 mm[Hg] Tue Oct 01 13:48:44 EDT 4 Diastolic Blood Pressure 87.00 mm[Hg] Tue Oct 01 13:48:44 EDT 4 Systolic Blood Pressure 133.00 mm[Hg] Tue Oct 01 10:07:11 EDT 4 Diastolic Blood Pressure 64.00 mm[Hg] Tue Oct 01 10:07:11 EDT 4 Systolic Blood Pressure 133.00 mm[Hg] Tue Oct 01 10:07:11 EDT 4 Diastolic Blood Pressure 64.00 mm[Hg] Tue Oct 01 10:07:11 EDT 4 Systolic Blood Pressure 133.00 mm[Hg] Tue Oct 01 10:07:11 EDT 4 Diastolic Blood Pressure 64.00 mm[Hg] Tue Oct 01 10:07:11 EDT 4 Systolic Blood Pressure 133.00 mm[Hg] Tue Oct 01 07:42:22 EDT 2023 Diastolic Blood Pressure 64.00 mm[Hg] Tue Oct 01 07:42:22 EDT 2023 Heart Rate 74.00 /min SatMar 31 07:42 :22 EDT 2023 Pulse Oximetry 92.00 % SatMar 31 07:42 :22 EDT 2023 Systolic Blood Pressure 138.00 mm[Hg] Mon Sep 30 21:19:30 EDT 2023 Diastolic Blood Pressure 74.00 mm[Hg] Mon Sep 30 21:19:30 EDT 2023 Systolic Blood Pressure 138.00 mm[Hg] Mon Sep 30 21:19:30 EDT 2023 Diastolic Blood Pressure 74.00 mm[Hg] Mon Sep 30 21:19:30 EDT 2023 Systolic Blood Pressure 143.00 mm[Hg] Mon Sep 30 14:58:57 EDT 2023 Diastolic Blood Pressure 81.00 mm[Hg] Mon Sep 30 14:58:57 EDT 2023 Systolic Blood Pressure 146.00 mm[Hg] [...] 30 10:44:47 EDT 2023 Systolic Blood Pressure 132.00 mm[Hg] Mon Sep 30 07:35:54 EDT 2023 Diastolic Blood Pressure 76.00 mm[Hg] Mon Sep 30 07:35:54 EDT 2023 Heart Rate 78.00 /min Mon Sep 30 07:35 :54 EDT 2023 Systolic Blood Pressure 132.00 mm[Hg] [...] 29 09:49:46 EDT 2023 Systolic Blood Pressure 168.00 mm[Hg] Sun Sep 29 09:49:46 EDT 2023 Diastolic Blood Pressure 90.00 mm[Hg] Sun Sep 29 09:49:46 EDT 2023 Systolic Blood Pressure 168.00 mm[Hg] Sun Sep 29 09:49:46 EDT 2023 Diastolic Blood Pressure 90.00 mm[Hg] Sun Sep 29 09:49:46 EDT 2023 Systolic Blood Pressure 141.00 mm[Hg] Sat Sep 28 22:11:57 EDT 2023 Diastolic Blood Pressure 84.00 mm[Hg] Sat Sep 28 22:11:57 EDT 2023 Systolic Blood Pressure 141.00 mm[Hg] Sat Sep 28 22:11:57 EDT 2023 Diastolic Blood Pressure 84.00 mm[Hg] Sat Sep 28 22:11:57 EDT 2023 Systolic Blood Pressure 140.00 mm[Hg] Sat Sep 28 13:14:02 EDT 2023 Diastolic Blood Pressure 81.00 mm[Hg] Sat Sep 28 13:14:02 EDT 4 Systolic Blood Pressure 159.00 mm[Hg] Sat Sep 28 10:29:34 EDT 2023 Diastolic Blood Pressure 90.00 mm[Hg] Sat Sep 28 10:29:34 EDT 2023 Systolic Blood Pressure 159.00 mm[Hg] Sat Sep 28 10:29:34 EDT 2023 Diastolic Blood Pressure 90.00 mm[Hg] Sat Sep 28 10:29:34 EDT 4 Systolic Blood Pressure 159.00 mm[Hg] Sat Sep 28 10:29:34 EDT 4 Diastolic Blood Pressure 90.00 mm[Hg] Sat Sep 28 10:29:34 EDT 4 Systolic Blood Pressure 162.00 mm[Hg] Fri Sep 27 20:42:34 EDT 4 Diastolic Blood Pressure 78.00 mm[Hg] Fri Sep 27 20:42:34 EDT 2023 Systolic Blood Pressure 162.00 mm[Hg] Fri Sep 27 20:42:34 EDT 4 Diastolic Blood Pressure 78.00 mm[Hg] Fri Sep 27 20:42:34 EDT 4 Systolic Blood Pressure 173.00 mm[Hg] Fri Sep [...] % Wed Sep 25 12:36 :16 EDT 4 Respiratory rate 18.00 /min Wed Sep 25 [...] 87.00 mm[Hg] Wed Sep 25 11:01:41 EDT 4 Systolic Blood Pressure 165.00 mm[Hg] Wed Sep 25 11:01:41 EDT 2023 Diastolic Blood Pressure 87.00 mm[Hg] Wed Sep 25 11:01:41 EDT 4 Systolic Blood Pressure 128.00 mm[Hg] Tue Sep [...] 74.00 mm[Hg] Mon Sep 23 21:03:00 EDT 4 Systolic Blood Pressure 146.00 mm[Hg] [...] 132.00 mm[Hg] Sat Sep 21 19:37:05 EDT 4 Diastolic Blood Pressure 76.00 mm[Hg] Sat Sep 21 19:37:05 EDT 2023 Systolic Blood Pressure 144.00 mm[Hg] Sat Sep [...] 20 22:27:04 EDT 4 Systolic Blood Pressure 148.00 mm[Hg] Fri Sep [...] 91.00 mm[Hg] Samantha Sep 19 09:43:33 EDT 4 Systolic Blood Pressure 165.00 mm[Hg] Samantha Sep [...] 136.00 mm[Hg] Wed Sep 18 21:06:03 EDT 4 Diastolic Blood Pressure 75.00 mm[Hg] Wed Sep 18 21:06:03 EDT 2023 Systolic Blood Pressure 140.00 mm[Hg] Wed Sep [...] /min Wed Sep 18 10:2 8:30 EDT 2023 Body temperature 98.80 [degF] Wed Sep 18 10:2 8:30 EDT 2023 Systolic Blood Pressure 131.00 mm[Hg] Wed Sep 18 09:22:37 EDT 2023 Diastolic Blood Pressure 72.00 mm[Hg] Wed Sep 18 09:22:37 EDT 2023 Pulse Oximetry 94.00 % Wed Sep 18 09:22 :37 EDT 4 Heart Rate 93.00 /min Wed Sep 18 09:22 :37 EDT 2023 Systolic Blood Pressure 142.00 mm[Hg] [...] 49.00 mm[Hg] Tue Sep 17 09:26:54 EDT 2023 Systolic Blood Pressure 139.00 mm[Hg] Tue Sep 17 09:26:54 EDT 2023 Diastolic Blood Pressure 49.00 mm[Hg] Tue Sep 17 09:26:54 EDT 4 Systolic Blood Pressure 139.00 mm[Hg] Tue Sep 17 09:26:54 EDT 2023 Diastolic Blood Pressure 49.00 mm[Hg] Tue Sep 17 09:26:54 EDT 4 Systolic Blood Pressure 139.00 mm[Hg] Tue Sep 17 08:03:17 EDT 2023 Diastolic Blood Pressure 49.00 mm[Hg] Tue Sep 17 08:03:17 EDT 4 Heart Rate 83.00 /min Tue Sep 17 08:03 :17 EDT 4 Systolic Blood Pressure 140.00 mm[Hg] Mon Sep 16 21:09:37 EDT 2023 Diastolic Blood Pressure 82.00 mm[Hg] Mon Sep 16 21:09:37 EDT 4 Systolic Blood Pressure 140.00 mm[Hg] Mon Sep 16 21:09:37 EDT 4 Diastolic Blood Pressure 82.00 mm[Hg] Mon Sep 16 21:09:37 EDT 2023 Systolic Blood Pressure 143.00 mm[Hg] Mon Sep 16 14:47:18 EDT 2023 Diastolic Blood Pressure 80.00 mm[Hg] Mon Sep 16 14:47:18 EDT 4 Systolic Blood Pressure 140.00 mm[Hg] [...] 140.00 mm[Hg] Mon Sep 16 09:10:04 EDT 2023 Diastolic Blood Pressure 79.00 mm[Hg] [...] /min Sun Sep 15 16:31 :00 EDT 2023 Respiratory rate 22.00 /min Sun Sep 15 16:3 1:00 EDT 2023 Systolic Blood Pressure 138.00 mm[Hg] Sun Sep 15 13:17:29 EDT 2023 Diastolic Blood Pressure 98.00 mm[Hg] Sun Sep 15 13:17:29 EDT 2023 Systolic Blood Pressure 139.00 mm[Hg] Sun Sep 15 10:18:07 EDT 2023 Diastolic Blood Pressure 73.00 mm[Hg] Sun Sep 15 10:18:07 EDT 2023 Systolic Blood Pressure 139.00 mm[Hg] Sun Sep 15 10:18:07 EDT 2023 Diastolic Blood Pressure 73.00 mm[Hg] Sun Sep 15 10:18:07 EDT 2023 Systolic Blood Pressure 139.00 mm[Hg] Sun Sep 15 10:18:07 EDT 2023 Diastolic Blood Pressure 73.00 mm[Hg] Sun Sep 15 10:18:07 EDT 2023 Systolic Blood Pressure 146.00 mm[Hg] Sat Sep 14 21:58:20 EDT 2023 Diastolic Blood Pressure 61.00 mm[Hg] Sat Sep 14 21:58:20 EDT 4 Systolic Blood Pressure 146.00 mm[Hg] Sat Sep 14 21:58:20 EDT 2023 Diastolic Blood Pressure 61.00 mm[Hg] Sat Sep 14 21:58:20 EDT 2023 Systolic Blood Pressure 142.00 mm[Hg] Sat Sep 14 13:06:14 EDT 2023 Diastolic Blood Pressure 80.00 mm[Hg] Sat Sep 14 13:06:14 EDT 2023 Systolic Blood Pressure 117.00 mm[Hg] Sat Sep 14 08:37:14 EDT 2023 Diastolic Blood Pressure 61.00 mm[Hg] Sat Sep 14 08:37:14 EDT 2023 Systolic Blood Pressure 117.00 mm[Hg] Sat Sep 14 08:37:14 EDT 2023 Diastolic Blood Pressure 61.00 mm[Hg] Sat Sep 14 08:37:14 EDT 2023 Systolic Blood Pressure 117.00 mm[Hg] Sat Sep 14 08:37:14 EDT 2023 Diastolic Blood Pressure 61.00 mm[Hg] Sat Sep 14 08:37:14 EDT 2023 Systolic Blood Pressure 117.00 mm[Hg] Sat Sep 14 07:34:18 EDT 4 Diastolic Blood Pressure 61.00 mm[Hg] Sat Sep 14 07:34:18 EDT 2023 Heart Rate 82.00 /min Sat Sep 14 07:34 :18 EDT 2023 Systolic Blood Pressure 138.00 [...] 150.00 mm[Hg] Fri Sep 13 09:57:28 EDT 2024 Diastolic Blood Pressure 79.00 mm[Hg] Fri Sep 13 09:57:28 EDT 4 Systolic Blood Pressure 150.00 mm[Hg] Fri Sep 13 09:57:28 EDT 4 Diastolic Blood Pressure 79.00 mm[Hg] Fri Sep 13 09:57:28 EDT 4 Systolic Blood Pressure 150.00 mm[Hg] Fri Sep [...] 97.00 mm[Hg] Samantha Sep 12 13:02:55 EDT 4 Systolic Blood Pressure 176.00 mm[Hg] Samantha Sep 12 09:55:54 EDT 4 Diastolic Blood Pressure 96.00 mm[Hg] Samantha Sep 12 09:55:54 EDT 4 Systolic Blood Pressure 176.00 mm[Hg] Samantha Sep 12 09:55:54 EDT 4 Diastolic Blood Pressure 96.00 mm[Hg] Samantha Sep 12 09:55:54 EDT 4 Systolic Blood Pressure 176.00 mm[Hg] Samantha Sep 12 09:55:54 EDT 4 Diastolic Blood Pressure 96.00 mm[Hg] Samantha Sep 12 09:55:54 EDT 4 Systolic Blood Pressure 142.00 mm[Hg] Wed Sep 11 20:15:14 EDT 2023 Diastolic Blood Pressure 94.00 mm[Hg] Wed Sep 11 20:15:14 EDT 4 Systolic Blood Pressure 142.00 mm[Hg] Wed Sep 11 20:15:14 EDT 2023 Diastolic Blood Pressure 94.00 mm[Hg] Wed Sep 11 20:15:14 EDT 2023 Systolic Blood Pressure 143.00 mm[Hg] Wed Sep 11 16:26:08 EDT 2023 Diastolic Blood Pressure 82.00 mm[Hg] Wed Sep 11 16:26:08 EDT 2023 Systolic Blood Pressure 142.00 mm[Hg] Wed Sep 11 10:51:13 EDT 2023 Diastolic Blood Pressure 67.00 mm[Hg] Wed Sep 11 10:51:13 EDT 2023 Heart Rate 68.00 /min Wed Sep 11 10:51 :13 EDT 2023 Pulse Oximetry 94.00 % Wed Sep 11 10:51 :13 EDT 2023 Respiratory rate 20.00 /min Wed Sep 11 10:5 1:13 EDT 2023 Body temperature 98.40 [degF] Wed Sep 11 10:5 1:13 EDT 2023 Systolic Blood Pressure 142.00 mm[Hg] [...] EDT 2023 Systolic Blood Pressure 158.00 mm[Hg] [facility] Sep 10 09:03:40 EDT 2023 Diastolic Blood Pressure 77.00 mm[Hg] e Sep 10 09:03:40 EDT 2023 Systolic Blood Pressure 158.00 mm[Hg] e Sep 10 09:03:40 EDT 2023 Diastolic Blood Pressure 77.00 mm[Hg] [facility] Sep 10 09:03:40 EDT 2023 Systolic Blood Pressure 158.00 mm[Hg] [facility] Sep 10 07:57:22 EDT 2023 Diastolic Blood Pressure 77.00 mm[Hg] [facility] Sep 10 07:57:22 EDT 2023 Heart Rate 88.00 /min [facility] Sep 10 07:57 :22 EDT 2023 Body weight 287.80 [lb_av] [facility] Sep 10 07:48 :04 EDT 2023 Systolic Blood Pressure 138.00 mm[Hg] [facility] Sep 09 21:14:53 EDT 2023 Diastolic Blood Pressure 74.00 mm[Hg] [facility] Sep 09 21:14:53 EDT 2023 Systolic Blood Pressure 138.00 mm[Hg] [facility] Sep 09 21:14:53 EDT 2023 Diastolic Blood Pressure 74.00 mm[Hg] [facility] Sep 09 21:14:53 EDT 4 Body weight 287.60 [lb_av] [facility] Sep 09 15:19 :19 EDT 2023 Systolic Blood Pressure 130.00 mm[Hg] Mon Sep 09 15:13:39 EDT 2023 Diastolic Blood Pressure 77.00 mm[Hg] [facility] Sep 09 15:13:39 EDT 2023 Systolic Blood Pressure 150.00 mm[Hg] [...] EDT 2023 Systolic Blood Pressure 129.00 mm[Hg] [place] Sep 08 20:59:13 EDT 2023 Diastolic Blood Pressure 77.00 mm[Hg] Sun Sep 08 20:59:13 EDT 4 Systolic Blood Pressure 129.00 mm[Hg] Sun Sep 08 20:59:13 EDT 2023 Diastolic Blood Pressure 77.00 mm[Hg] Sun Sep 08 20:59:13 EDT 2023 Systolic Blood Pressure 133.00 mm[Hg] Sun Sep 08 13:04:22 EDT 4 Diastolic Blood Pressure 74.00 mm[Hg] Sun Sep 08 13:04:22 EDT 2023 Systolic Blood Pressure 146.00 mm[Hg] [...] 83.00 mm[Hg] Sat Sep 07 13:07:38 EDT 4 Systolic Blood Pressure 132.00 mm[Hg] Sat Sep [...] 19:37:00 EDT 2023 Heart Rate 91.00 /min Fri Sep 06 19:37 :00 EDT 2023 Respiratory rate 18.00 /min Fri Sep 06 19:3 7:00 EDT 2023 Pulse Oximetry 95.00 % Fri Sep 06 19:37 :00 EDT 2023 Body temperature 97.80 [degF] Fri Sep 06 19:3 7:00 EDT 2023 Systolic Blood Pressure 133.00 mm[Hg] [facility] Sep 05 18:19:40 EDT 2023 Diastolic Blood Pressure 57.00 mm[Hg] Samantha Sep 05 18:19:40 EDT 2023 Heart Rate 92.00 /min Samantha Sep 05 18:19 :40 EDT 2023 Respiratory rate 18.00 /min Samantha Sep 05 18:1 9:40 EDT 2023 Body temperature 97.40 [degF] [facility]antha Sep 05 18:1 9:40 EDT 2023 Body weight 289.40 [lb_av] [facility] Sep 05 18:19 :40 EDT 2023 Body weight 288.00 [lb_av] SatMar 04 17:49 :57 EDT 2023 Body weight [...] EDT 2023 Diastolic Blood Pressure 84.00 mm[Hg] SatJan 03 14:15:39 EDT 2023 Heart Rate 111.00 /min SatJan 03 14:15 :39 EDT 2023 Respiratory rate 18.00 /min SatJan 03 14:1 5:39 EDT 2023 Body temperature 97.30 [degF] SatJan 03 14:1 5:39 EDT 2023 Body weight 284.00 [lb_av] SatJan 03 14:15 :39 EDT 2023 Systolic Blood [...] :23 EDT 2023 Body weight 281.80 [lb_av] SatDec 11 13:03 :45 EDT 2023 Systolic Blood [...] 88.00 /min SatOct 17 19:28 :52 EDT 2023 Respiratory rate 16.00 /min SatOct 17 19:2 8:52 EDT 2023 Body temperature 98.10 [degF] SatOct 17 19:2 8:52 EDT 2023 Body weight 285.80 [lb_av] SatOct 17 19:28 :52 EDT 2023 Systolic Blood Pressure 145.00 mm[Hg] SatOct 17 17:04:40 EDT 2023 Diastolic Blood Pressure 76.00 mm[Hg] SatOct 17 17:04:40 EDT 2023 Heart Rate 88.00 /min SatOct 17 17:04 :40 EDT 2023 Reason for Referral Past Medical [...] * Start Date: SatMar 15 00:00:00 EDT 3 * End Date: SatJun 17 00:00:00 EST [...]
--- OUTSIDE RECORDS SUMMARY | 2024-10-17 14:10 | XMS_ITS ---
Author Name Carlos Enrique Taylor Address [address] [facility] [address] [place] [address] Phone [phone] t3n [employer] Address [address] [place] [address] Phone [phone] Care Team Providers Care Ophthalmic Photographer Name Role Phone Carlos Enrique Taylor Unavailable Functional Status No Results Mental Status No Results Allergies and Intolerances Name Onset Date Reaction Severity No Known Allergies (Allergy) SatOctober 30 03:54:00 EDT 2022 Encounters Program Name Primary Diagnosis Admission Date/Time Dis charge Date/Time Rehabilitation [facility] Jun 16 19:00:00 EST 2022 Samantha Sep 05 08:00:00 EDT 2023 [facility] Aphasia SatMar 06 11:00:00 EDT 2023 Assisted Living Area SatOctober 30 10:30:00 EDT 2022 Fri Sep 06 16:15:00 EDT 2023 Immunizations Name Dates [...] breakfast Sat Mar 07 11:00:00 EDT 2023 [facility] Mar 25 16:37:00 EDT 2023 FreeStyle Luis 2 Sensor kit 1 kit KIT Topical Every 2 Weeks Indication: . DM nurse admin freestyle sensor every 2 weeks. rotate sites Samantha Mar 19 07:00:00 EDT 2023 [facility] Apr 02 11:03:00 EDT 2023 TubersoL 5 [...] Daily for 7 Days Indication: weight loss SIPHON OPERATOR Supervision: give 2 hours AFTER breakfast SatJan 03 01:00:00 2023Jan 04 07:17:00 2023 phentermine 30 mg capsule 1 capsule CAPS ULE Oral 1 Time Daily for 83 Days Indication: weight lossCNA Supervision: give 2 hours AFTER breakfast SatJan 10 01:00:00 2023Jan 04 07:17:00 2023 potassium chloride ER 20 mEq tablet,extended release(part/cryst) 1 tablet TABLET, EXT RELEASE, PARTICLES/CRYSTALS Oral 1 Time Daily Indication: hypokalemia SIPHON OPERATOR supervision x1 SatJan 01 01:00:00 2023Mar 06 01:00:00 2023 metFORMIN 500 mg tablet 1 tab TABLET Ora l 2 Times Daily Indication: DM SIPHON OPERATOR supervision x1 x4 SatDec 28 01:00:00 2023Mar 06 01:00:00 2023 metOLazone 10 mg tablet 1 tablet TABLET Oral 1 Time Daily for 10 Days Indication: weight gain SIPHON OPERATOR supervision. GIVE 30 MINUTES PRIOR TO FUROSEMIDE SatDec 18 13:00:00 2023Dec 28 12:59:00 2023 furosemide 20 mg tablet 1 TABLET Oral 1 Time Daily for 14 Days Indication: edema SIPHON OPERATOR to supervise x1 SatNovember 25:00:00 EDT 2023Dec 09 00:59:00 EDT 2023 Blood Pressure Kit 1 KIT Other 8 Times Daily Indication: Toilet Scheduled Q2hrs during the day SIPHON OPERATOR to take SatOctober 29 16:45:00 EDT 2023Mar [...] admin freestyle sensor every 2 weeks. rotate [facility] SatAug 11 11:00:00 EST 2023 18:08:00 EST 2023 FreeStyle Luis 2 Sensor kit 1 kit KIT Topical Every 2 Weeks Indication: DM nurse admin freestyle sensor every 2 weeks. rotate [facility] SatAug 11 10:01:00 EST 2023Aug 11 12:30:00 EST 2023 FreeStyle Luis 2 Sensor kit 1 kit KIT Topical Every 2 Weeks Indication: DM nurse admin freestyle sensor every 2 weeks. rotate [facility] SatJul 10 07:00:00 EST 2023Aug 08 10:02:00 EST 2023 FreeStyle Luis 2 Sensor kit 1 kit KIT Topical Every 2 Weeks Indication: DM nurse admin freestyle sensor every 2 weeks. 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 x1 SatJun 15 07:00:00 EST 2022Mar 06 [...] COATED) Oral 1 Time Daily Indication: constipation SIPHON OPERATOR supervision x1 SatJun 15 01:00:00 EST 2022Mar 06 01:00:00 EDT 2023 calcium carbonate 500 mg calcium (1,250 mg) chewable tablet 1 tab TABLET,CHEWABLE Oral 1 Time Daily Indication: Supplement SIPHON OPERATOR Supervision Welding Machine Operator Resistance x1 SatJun 15 07:00:00 2022Mar 06 01:00:00 [...] 1 Time Weekly Indication: Vitamin D deficiency SIPHON OPERATOR Supervision Welding Machine Operator Resistance x1 SatJun 21 07:00:00 EST 2022Mar 06 01:00:00 EDT 2023 potassium chloride ER 10 mEq tablet,extended release 1 tab Oral 1 Time Daily Indication: Dx: Hypokalemia SIPHON OPERATOR Supervision Welding Machine Operator Resistance x1 SatJun 15 07:00:00 EST 2022Dec 31 19:11:00 EDT 2023 levETIRAcetam 1,000 mg tablet 1 tab Oral 2 Times Daily Indication: Seizure History SIPHON OPERATOR Supervision Welding Machine Operator Resistance x1 Early Evening x4 SatJun 14 16:45:00 EST 2022Mar 06 01:00:00 EDT 2023 levETIRAcetam 500 mg tablet 1 tab TABLET Oral 2 Times Daily Indication: Seizure History SIPHON OPERATOR Supervision Welding Machine Operator Resistance x1 Early Evening x4 SatJun 14 16:48:00 [...] Or al 3 Times Daily Indication: HTN SIPHON OPERATOR supervision x1, x2, x4 SatJun 14 16:00:00 [...] 11:00:00 2022Jun 14 01:00:00 EST 2022 Nasal [place] (sodium chloride) 0.65 % aerosol 1 spray [...] KIT Other 2 Times Monthly Indication: Vitals SIPHON OPERATOR supervision, SIPHON OPERATOR obtain the vitals SatMay 08 12:23:00 2022Mar [...] Daily Indication: DM nurse admin x1 x2 [id number] Scale Insulin: Insulin Units> 400, Notify ;151-200, 1 Units;201-250, 2 Units;251-300, 4 Units;301-350, 6 Units;351-400, 8 Units;. SatMay 08 12:28:00 2022Jun 14 16:33:00 2022 multivitamin tablet 1 TABLET Oral 2 Time s Daily Indication: vitamin SIPHON OPERATOR supervision x1 x4 SatMay 08 12:29:00 EST [...] TABLET Oral 1 Time Daily Indication: supplement SIPHON OPERATOR supervision x1two 500mcg tabs = 1,000mcg total [...] 8 Weeks Indication: Weight Gain Weekly weight [address] ONLY SatApr 18 01:00:00 EDT 2022Jun 13 00:59:00 EST 2022 FreeStyle Luis 2 Sensor kit 1 kit KIT Topical Every 2 Weeks Indication: DM change freestyle sensor every 2 weeks. rotate sites SatApr 09 11:53:00 EDT 2022Apr 23 09:54:00 EDT 2022 furosemide 40 mg tablet 1 tab TABLET Ora l 2 Times Daily for 7 Days Indication: edema SIPHON OPERATOR supervision x1, x3 SatApr 03 01:00:00 EDT 2022Apr 10 00:59:00 EDT 2022 furosemide 40 mg tablet 1 tab TABLET Ora l 1 Time Daily Indication: edema SIPHON OPERATOR supervision x1 SatApr 10 01:00:00 EDT 2022Apr 16 15:53:00 EDT 2022 cyanocobalamin (vit B-12) 500 mcg tablet 1 tab TABLET Oral 1 Time Daily Indication: supplement SIPHON OPERATOR x12 500mcg tabs = 1,000mcg total SatMar [...] change freestyle sensor every 2 weeks. rotate [facility] SatFeb 03 07:00:00 EDT 2022Feb 27 07:28:00 EDT 2022 FreeStyle Luis 2 Sensor kit 1 kit KIT Topical Every 2 Weeks Indication: DM change freestyle sensor every 2 weeks. rotate [facility] SatFeb 04 01:00:00 EDT 2022Feb 04 18:43:00 EDT 2022 FreeStyle Luis 2 Sensor kit 1 kit KIT Topical Every 2 Weeks Indication: DM change freestyle sensor every 2 weeks. rotate [facility] SatFeb 02 01:00:00 EDT 2022Feb 02 15:29:00 EDT 2022 acetaminophen 325 mg tablet 2 tabs TABLE T Oral 4 Times Daily Indication: pain SIPHON OPERATOR supervision x1, x2, x3, & x4 SatJan 10 01:00:00 EDT 2022Jun 14 16:14:00 EST 2022 FreeStyle Luis 2 Sensor kit 1 kit KIT Topical Every 2 Weeks Indication: DM change freestyle sensor every 2 weeks. rotate [facility] SatDec 20 01:00:00 EDT 2022Jan 31 [...] T Oral 1 Time Daily Indication: pain SIPHON OPERATOR x 4 SatDec 06 07:00:00 EDT 2022Jan [...] LET Oral 2 Times Daily Indication: HTN SIPHON OPERATOR supervision x1 x4 SatDec 05 20:41:00 EDT 2022Mar 06 01:00:00 EDT 2023 multivitamin tablet 1 TABLET Oral 2 Time s Daily Indication: vitamin SIPHON OPERATOR x1 x4 SatDec 06 01:00:00 EDT 2022May [...] Oral 2 Times Daily Indication: metabolic encephalopathy SIPHON OPERATOR x1 x4 SatNovember 23 01:00:00 EDT 2022May [...] KIT Other 2 Times Monthly Indication: Vitals SIPHON OPERATOR obtain the vitals SatNovember 16 01:00:00 EDT [...] Sliding Scale Insulin: Insulin Units> 400, Portia JEFRFIES;151-200, 1 Units;201-250, 2 Units;251-300, 4 Units;301-350, 6 [...] TABLET Oral 1 Time Daily Indication: HTN SIPHON OPERATOR supervision x 1 SatOctober 30 17:30:00 EDT 2022Mar 06 01:00:00 EDT 2023 cloNIDine HCL 0.1 mg tablet 1/2 tablet T ABLET Oral 2 Times Daily Indication: HTN SIPHON OPERATOR supervision x1 x4 SatOctober 30 17:30:00 EDT 2022Dec 05 20:42:00 EDT 2022 dexAMETHasone 6 mg tablet 1 tablet TABLE T Oral 1 Time Daily Indication: Metabolic Encephalopathy SIPHON OPERATOR supervision x1 SatOctober 30 17:30:00 EDT 2022Mar 06 01:00:00 EDT 2023 bisacodyL 5 mg tablet,delayed release 2 tabs TABLET, DELAYED RELEASE (ENTERIC COATED) Oral 1 Time Daily Indication: constipation SIPHON OPERATOR supervision x4 SatOctober 30 17:30:00 EDT 2022Jun 14 16:16:00 EST 2022 DULoxetine 30 mg capsule,delayed release 1 capsule CAPSULE,DELAYED RELEASE (ENTERIC COATED) Oral 1 Time Daily Indication: anxiety SIPHON OPERATOR supervision x1 SatOctober 30 17:30:00 EDT 2022Mar 06 01:00:00 EDT 2023 enoxaparin 40 mg/0.4 mL subcutaneous syringe 0.4mL SYRINGE (ML) Subcutaneous 1 Time Daily Indication: prevent blood clots Nurse administration SatOctober 30 17:30:00 EDT 2022November 22 21:25:00 EDT 2022 famotidine 20 mg tablet 1 tab TABLET Ora l 1 Time Daily Indication: GERD SIPHON OPERATOR supervision x1 SatOctober 30 17:30:00 EDT 2022Mar 06 01:00:00 EDT 2023 fluticasone propionate 50 mcg/actuation nasal spray,suspension 1 spray SPRAY, SUSPENSION Intranasal - Both Nostrils PRN 2 Times Daily Indication: allergies Nurse administration SatOctober 30 17:30:00 ED2022Jun 14 17:09:00 EST 2022 furosemide 40 mg tablet 1/2 tab TABLET O ral 1 Time Daily Indication: edema SIPHON OPERATOR Supervision x11/2 tab = 20mg SatOctober 30 17:40:00 EDT 2022Apr 02 20:24:00 EDT 2022 gabapentin 300 mg capsule 1 capsule CAPS ULE Oral 2 Times Daily Indication: diabetic neuropathy SIPHON OPERATOR Supervision x1, x4 SatOctober 30 17:30:00 EDT 2022Mar 06 01:00:00 EDT 2023 hydrALAZINE 50 mg tablet 1 tab TABLET Or al 3 Times Daily Indication: HTN SIPHON OPERATOR supervision x1, x2, x3 SatOctober 30 17:30:00 EDT 2022Jun 14 20:03:00 EST 2022 levETIRAcetam 1,000 mg tablet 2 tabs TABLET Oral 2 Times Daily Indication: seizures SIPHON OPERATOR supervision x1, x3 SatOctober 30 17:30:00 EDT 2022Jun 14 16:45:00 EST 2022 magnesium oxide 400 mg (241.3 mg magnesium) tablet 1 tab TABLET Oral 1 Time Daily Indication: GERD SIPHON OPERATOR supervision x1 SatOctober 30 17:30:00 EDT 2022Mar 06 01:00:00 EDT 2023 OXcarbazepine 300 mg tablet 1 tab TABLET Oral 2 Times Daily Indication: seizures SIPHON OPERATOR supervision x1, x4 SatOctober 30 17:30:00 EDT 2022Mar 06 01:00:00 EDT 2023 polyethylene glycoL 3350 17 gram/dose oral powder 17 grams POWDER (GRAM) Oral PRN 1 Time Daily Indication: constipation SatOctober 30 17:30:00 EDT 2022Dec 01 15:38:00 EDT 2022 potassium chloride ER 20 mEq tablet,extended release 1/2 tab TABLET, EXTENDED RELEASE Oral 1 Time Daily Indication: metabolic encephalopathy SIPHON OPERATOR supervision x1 SatOctober 30 17:30:00 EDT 2022Jun 14 16:42:00 EST 2022 Nasal [place] (sodium chloride) 0.65 % aerosol 1 spray [...] TABLET Oral 2 Times Daily Indication: constipation SIPHON OPERATOR supervision x1, x4 SatOctober 30 17:30:00 EDT [...] DM Sliding Scale Insulin: Insulin Units> 400, Porita JEFFRIES;151-200, 1 Units;201-250, 2 Units;251-300, 4 Units;301-350, [...] 2022 * End Date: * Text: * oysterman (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 * Code: * Start Date: SatMar 11 00:00:00 EDT 2023 * End Date: * Text: [facility]- [place]oy moved to this community for director long term care care services. * [facility]Social Services- Eloy's wishes [...] EDT 2024 Diastolic Blood Pressure 77.00 mm[Hg] Samanhta Oct 01 21:39:30 EDT 2024 Heart Rate [...] EDT 2024 Systolic Blood Pressure 141.00 mm[Hg] [facility] Sep 28 21:52:14 EDT 2024 Diastolic Blood Pressure 72.00 mm[Hg] [facility] Sep 28 21:52:14 EDT 2024 Heart Rate 75.00 /min SatSep 28 21:52 :14 EDT 2024 Systolic Blood Pressure 127.00 mm[Hg] SatSep 28 12:40:51 EDT 2024 Diastolic Blood Pressure 86.00 mm[Hg] [facility] Sep 28 12:40:51 EDT 2024 Systolic Blood Pressure 145.00 mm[Hg] SatSep 28 10:12:36 EDT 2024 Diastolic Blood Pressure 73.00 mm[Hg] [facility] Sep 28 10:12:36 EDT 2024 Systolic Blood Pressure 145.00 mm[Hg] [facility] Sep 28 10:12:36 EDT 2024 Diastolic Blood Pressure 73.00 mm[Hg] [facility] Sep 28 10:12:36 EDT 2025 Systolic Blood [...] EDT 2024 Diastolic Blood Pressure 83.00 mm[Hg] mEerson Sep 08 10:23:03 EDT 2024 Systolic Blood [...] EST 5 Systolic Blood Pressure 132.00 mm[Hg] Samatnha Feb 27 09:47:41 EST 5 Diastolic Blood [...] EST 2025 Systolic Blood Pressure 132.00 mm[Hg] Samatnha Feb 27 09:47:41 EST 2025 Diastolic Blood [...] EST 2024 Diastolic Blood Pressure 78.00 mm[Hg] [facility] Feb 10 09:55:40 EST 2024 Heart Rate 89.00 /min Mon Feb 10 09:55 :40 EST 2024 Systolic Blood Pressure 155.00 mm[Hg] Mon Feb 10 07:59:00 EST 2024 Diastolic Blood Pressure 78.00 mm[Hg] Mon Feb 10 07:59:00 EST 2024 Heart Rate 89.00 /min [facility] Feb 10 07:59 :00 EST 2024 Pulse [...] EST 2024 Diastolic Blood Pressure 73.00 mm[Hg] [facility] Jul 26 10:12:48 EST 2024 Systolic Blood Pressure 148.00 mm[Hg] [facility] Jul 26 00:10:40 EST 2024 Diastolic Blood Pressure 87.00 mm[Hg] [facility] Jul 26 00:10:40 EST 2024 Systolic Blood Pressure 148.00 mm[Hg] [facility] Jul 26 00:10:40 EST 2024 Diastolic Blood Pressure 87.00 mm[Hg] [facility] Jul 26 00:10:40 EST 2024 Systolic Blood [...] EST 2024 Systolic Blood Pressure 132.00 mm[Hg] [facility] Jul 19 23:18:21 EST 2024 Diastolic Blood Pressure 87.00 mm[Hg] [facility] Jul 19 23:18:21 EST 2024 Systolic Blood Pressure 132.00 mm[Hg] [facility] Jul 19 23:18:21 EST 2024 Diastolic Blood Pressure 87.00 mm[Hg] [facility] Jul 19 23:18:21 EST 2024 Systolic Blood Pressure 151.00 mm[Hg] SatJul 19 13:29:22 EST 2024 Diastolic Blood Pressure 90.00 mm[Hg] SatJul 19 13:29:22 EST 2024 Systolic Blood Pressure 157.00 mm[Hg] [facility] Jul 19 10:36:41 EST 2024 Diastolic Blood Pressure 84.00 mm[Hg] [facility] Jul 19 10:36:41 EST 2024 Systolic Blood Pressure 157.00 mm[Hg] SatJul 19 10:36:41 EST 2024 Diastolic Blood Pressure 84.00 mm[Hg] [facility] Jul 19 10:36:41 EST 2024 Systolic Blood Pressure 157.00 mm[Hg] [facility] Jul 19 10:36:41 EST 2024 Diastolic Blood Pressure 84.00 mm[Hg] [facility] Jul 19 10:36:41 EST 2024 Systolic Blood Pressure 157.00 mm[Hg] [facility] Jul 19 07:54:27 EST 2024 Diastolic Blood Pressure 84.00 mm[Hg] SatJul 19 07:54:27 EST 2024 Pulse Oximetry 93.00 % SatJul 19 07:54 :27 EST 2024 Heart Rate 103.00 /min [facility] Jul 19 07:54 :27 EST 2024 Systolic [...] EST 2024 Systolic Blood Pressure 157.00 mm[Hg] [facility] Jul 12 21:18:50 EST 2024 Diastolic Blood Pressure 84.00 mm[Hg] [facility] Jul 12 21:18:50 EST 2024 Systolic Blood Pressure 156.00 mm[Hg] [facility] Jul 12 14:26:39 EST 2024 Diastolic Blood Pressure 88.00 mm[Hg] [facility] Jul 12 14:26:39 EST 2024 Systolic Blood Pressure 157.00 mm[Hg] [facility] Jul 12 10:12:46 EST 2024 Diastolic Blood Pressure 103.00 mm[Hg] [facility] Jul 12 10:12:46 EST 2024 Systolic Blood Pressure 157.00 mm[Hg] [facility] Jul 12 10:12:46 EST 2024 Diastolic Blood Pressure 103.00 mm[Hg] [facility] Jul 12 10:12:46 EST 2024 Systolic Blood Pressure 157.00 mm[Hg] [facility] Jul 12 10:12:46 EST 2024 Diastolic Blood Pressure 103.00 mm[Hg] [facility] Jul 12 10:12:46 EST 2024 Systolic Blood Pressure 137.00 mm[Hg] [facility] Jul 12 00:46:44 EST 2024 Diastolic Blood Pressure 86.00 mm[Hg] [facility] Jul 12 00:46:44 EST 2024 Systolic Blood Pressure 137.00 mm[Hg] [facility] Jul 12 00:46:44 EST 2024 Diastolic Blood Pressure 86.00 mm[Hg] [facility] Jul 12 00:46:44 EST 2024 Systolic Blood Pressure 146.00 mm[Hg] [facility] Jul 11 19:24:14 EST 2024 Diastolic Blood Pressure 86.00 mm[Hg] [facility] Jul 11 19:24:14 EST 2024 Heart Rate 103.00 /min [facility] Jul 11 19:24 :14 EST 2024 Respiratory rate 20.00 /min [facility] Jul 11 19:2 4:14 EST 2024 Pulse Oximetry 94.00 % [facility] Jul 11 19:24 :14 EST 2024 Body temperature 97.20 [degF] [facility] Jul 11 19:2 4:14 EST 2024 Systolic Blood Pressure 158.00 mm[Hg] [facility] Jul 11 13:35:07 EST 2024 Diastolic Blood Pressure 97.00 mm[Hg] [facility] Jul 11 13:35:07 EST 2024 Systolic Blood Pressure 135.00 mm[Hg] [facility] Jul 11 10:21:10 EST 2024 Diastolic Blood [...] EST 2024 Systolic Blood Pressure 145.00 mm[Hg] [facility] Jul 09 09:42:24 EST 2024 Diastolic Blood Pressure 82.00 mm[Hg] [facility] Jul 09 09:42:24 EST 2024 Systolic Blood Pressure 145.00 mm[Hg] [facility] Jul 09 09:42:24 EST 2024 Diastolic Blood Pressure 82.00 mm[Hg] [facility] Jul 09 09:42:24 EST 2024 Systolic Blood Pressure 145.00 mm[Hg] [facility] Jul 09 09:42:24 EST 2024 Diastolic Blood Pressure 82.00 mm[Hg] [facility] Jul 09 09:42:24 EST 2024 Systolic Blood Pressure 145.00 mm[Hg] [facility] Jul 09 07:56:25 EST 2024 Diastolic Blood Pressure 82.00 mm[Hg] [facility] Jul 09 07:56:25 EST 2024 Heart Rate [...] EST 2024 Systolic Blood Pressure 138.00 mm[Hg] [facility] Jul 05 22:24:30 EST 2024 Diastolic Blood Pressure 76.00 mm[Hg] [facility] Jul 05 22:24:30 EST 2024 Systolic Blood Pressure 138.00 mm[Hg] [facility] Jul 05 22:24:30 EST 2024 Diastolic Blood Pressure 76.00 mm[Hg] [facility] Jul 05 22:24:30 EST 2024 Systolic Blood Pressure 144.00 mm[Hg] [facility] Jul 05 13:00:08 EST 2024 Diastolic Blood Pressure 90.00 mm[Hg] [facility] Jul 05 13:00:08 EST 2024 Systolic Blood Pressure 154.00 mm[Hg] [facility] Jul 05 11:09:10 EST 2024 Diastolic Blood Pressure 77.00 mm[Hg] Sun Jul 05 11:09:10 EST 2024 Systolic Blood Pressure 154.00 mm[Hg] Sun Jul 05 11:09:10 EST 2024 Diastolic Blood Pressure 77.00 mm[Hg] [facility] Jul 05 11:09:10 EST 2024 Systolic Blood Pressure 154.00 mm[Hg] [facility] Jul 05 11:09:10 EST 2024 Diastolic Blood Pressure 77.00 mm[Hg] [facility] Jul 05 11:09:10 EST 2024 Systolic Blood Pressure 154.00 mm[Hg] [facility] Jul 05 08:35:56 EST 2024 Diastolic Blood Pressure 77.00 mm[Hg] [facility] Jul 05 08:35:56 EST 2024 Heart Rate 92.00 /min [facility] Jul 05 08:35 :56 EST 2024 Systolic Blood Pressure 154.00 mm[Hg] [facility] Jul 04 21:53:52 EST 2024 Diastolic Blood Pressure 88.00 mm[Hg] [facility] Jul 04 21:53:52 EST 2024 Systolic Blood Pressure 154.00 mm[Hg] [facility] Jul 04 21:53:52 EST 2024 Diastolic Blood Pressure 88.00 mm[Hg] [facility] Jul 04 21:53:52 EST 2024 Systolic Blood Pressure 143.00 mm[Hg] [facility] Jul 04 13:06:54 EST 2024 Diastolic Blood Pressure 90.00 mm[Hg] [facility] Jul 04 13:06:54 EST 2024 Systolic Blood Pressure 164.00 mm[Hg] [facility] Jul 04 10:47:58 EST 2024 Diastolic Blood Pressure 77.00 mm[Hg] [facility] Jul 04 10:47:58 EST 2024 Systolic Blood Pressure 164.00 mm[Hg] [facility] Jul 04 10:47:58 EST 2024 Diastolic Blood Pressure 77.00 mm[Hg] [facility] Jul 04 10:47:58 EST 2024 Systolic Blood Pressure 164.00 mm[Hg] [facility] Jul 04 10:47:58 EST 2024 Diastolic Blood Pressure 77.00 mm[Hg] [facility] Jul 04 10:47:58 EST 2024 Systolic Blood [...] EST 2023 Systolic Blood Pressure 137.00 mm[Hg] [facility] Dec 21:00:27 EST 2023 Diastolic Blood Pressure 73.00 mm[Hg] [facility] Jun 27 21:00:27 EST 2023 Systolic Blood Pressure 137.00 mm[Hg] [facility] Dec 21:00:27 EST 2023 Diastolic Blood Pressure 73.00 mm[Hg] [facility] Jun 27 21:00:27 EST 2023 Systolic Blood Pressure 149.00 mm[Hg] [facility] Jun 27 13:41:29 EST 2023 Diastolic Blood Pressure 76.00 mm[Hg] [facility] Dec 13:41:29 EST 2023 Systolic Blood Pressure 131.00 mm[Hg] Sat Dec 10:56:49 EST 2023 Diastolic Blood Pressure 67.00 mm[Hg] Sat Dec 10:56:49 EST 2023 Systolic Blood Pressure 131.00 mm[Hg] Sat Dec 10:56:49 EST 2023 Diastolic Blood Pressure 67.00 mm[Hg] Sat Dec 10:56:49 EST 2023 Systolic Blood Pressure 131.00 mm[Hg] [facility] Dec 10:56:49 EST 2023 Diastolic Blood Pressure [...] :43 EDT 2023 Body temperature 98.60 [degF] [facility] Apr 01 08:1 2:43 EDT 2023 [...] EDT 2023 Systolic Blood Pressure 158.00 mm[Hg] [facility] Sep 10 09:03:40 EDT 2023 Diastolic Blood Pressure 77.00 mm[Hg] e Sep 10 09:03:40 EDT 2023 Systolic Blood Pressure 158.00 mm[Hg] e Sep 10 09:03:40 EDT 2023 Diastolic Blood Pressure 77.00 mm[Hg] [facility] Sep 10 09:03:40 EDT 2023 Systolic Blood Pressure 158.00 mm[Hg] [facility] Sep 10 07:57:22 EDT 2023 Diastolic Blood Pressure 77.00 mm[Hg] [facility] Sep 10 07:57:22 EDT 2023 Heart Rate 88.00 /min [facility] Sep 10 07:57 :22 EDT 2023 Body weight 287.80 [lb_av] [facility] Sep 10 07:48 :04 EDT 2023 Systolic Blood Pressure 138.00 mm[Hg] [facility] Sep 09 21:14:53 EDT 2023 Diastolic Blood Pressure 74.00 mm[Hg] [facility] Sep 09 21:14:53 EDT 2023 Systolic Blood Pressure 138.00 mm[Hg] [facility] Sep 09 21:14:53 EDT 2023 Diastolic Blood Pressure 74.00 mm[Hg] [facility] Sep 09 21:14:53 EDT 4 Body weight 287.60 [lb_av] [facility] Sep 09 15:19 :19 EDT 2023 Systolic Blood Pressure 130.00 mm[Hg] Mon Sep 09 15:13:39 EDT 2023 Diastolic Blood Pressure 77.00 mm[Hg] [facility] Sep 09 15:13:39 EDT 2023 Systolic Blood [...] EDT 2023 Systolic Blood Pressure 129.00 mm[Hg] [facility] Sep 08 20:59:13 EDT 2023 Diastolic Blood [...]
--- NOTE | 2024-10-17 14:12 | ED_ITS ---
HPI - Neuro Symptoms/Deficit General Chief Complaint: Suspected CVA <Anay Rod PA-C - Last Filed: 10/17/24 20:40> Stated Complaint: facial droop <JAZMÍN Roche Last Filed: 10/17/24 20:40> Time Seen by Provider: 10/17/24 14:00 <JAZMÍN Roche Last Filed: 10/17/24 20:40> Source: patient and family <JAZMÍN Roche Last Filed: 10/17/24 20:40> Mode of arrival: EMS <JAZMÍN Roche Last Filed: 10/17/24 20:40> Limitations: clinical condition <JAZMÍN Roche Last Filed: 10/17/24 20:40> History of Present Illness HPI Narrative: Patient is a 64-year-old male, past medical history of COPD, diabetes, previous glioblastoma s/p tumor resection, multiple CVAs with R sided hemiplegia/aphasia, who presents to the ED via EMS with report of pain/spasms throughout R arm/leg, possible R facial droop. Patient resides in [facility]. Patient has chronic aphasia, only able to answer yes, no, say one. Family reports that patient has been dealing with pain and spasms throughout his right leg and right arm intermittently over the past couple of months, states he had a severe episode of this pain today. Staff at the facility also reported that patient had a more pronounced R sided facial droop today. They noticed this around noon. Unknown exactly when patient's last known well was. Family reports he has had a chronic right-sided facial droop, but they do feel it is more pronounced currently. Patient denies dizziness, lightheadedness, headache, chest pain, current RUE/RLE pain, weakness of left side. Family otherwise feels that patient is in his normal state of health. Patient is on Eliquis 5 mg b.i.d.. <JAZMÍN Roche Last Filed: 10/17/24 20:40> Related Data Home Medications: Home Medications ?Medication ?Instructions ?Recorded ?Confirmed ?Last Taken ?Type acetaminophen 650 mg 650 mg PO Q6H PRN Pain (Scale 05/03/23 10/17/24 Unknown History tablet,extended release Score 1-3) amlodipine 10 mg tablet 10 mg PO DAILY 05/03/23 10/17/24 Unknown History apixaban 2.5 mg tablet (Eliquis) 2.5 mg PO BID 05/03/23 10/17/24 Unknown History bisacodyl 5 mg tablet 10 mg PO DAILY 05/03/23 10/17/24 Unknown History clonidine HCl 0.1 mg tablet 0.1 mg PO Q12H 05/03/23 10/18/24 Unknown History duloxetine 30 mg capsule,delayed 20 mg PO DAILY 05/03/23 10/17/24 Unknown History release famotidine 20 mg tablet 20 mg PO DAILY 05/03/23 10/17/24 Unknown History hydralazine 50 mg tablet 50 mg PO TID 05/03/23 10/17/24 Unknown History insulin glargine 100 unit/mL (3 35 unit subcut DAILY 05/03/23 10/17/24 Unknown History mL) subcutaneous pen (Lantus Solostar U-100 Insulin) insulin lispro 100 unit/mL 15 unit subcut TID 05/03/23 10/17/24 Unknown History subcutaneous pen (Humalog KwikPen (U-100) Insulin) lactulose 10 gram/15 mL oral 15 ml PO BID PRN Constipation 05/03/23 10/17/24 Unknown History solution lanolin alcohols-mineral 1 applic topical BID PRN dry skin 05/03/23 10/17/24 Unknown History oil-w.petrolatum-ceresin topical cream (Eucerin topical cream) levetiracetam 1,000 mg tablet 1,000 mg PO BID 05/03/23 10/17/24 Unknown History magnesium oxide 400 mg PO DAILY 05/03/23 10/17/24 Unknown History nystatin 100,000 unit/gram topical 1 applic topical BID PRN groin rash 05/03/23 10/17/24 Unknown History powder oxcarbazepine 300 mg tablet 300 mg PO Q12H 05/03/23 10/18/24 Unknown History polyethylene glycol 3350 17 gram 17 g PO DAILY 05/03/23 10/17/24 Unknown History oral powder packet (Miralax) potassium chloride 20 mEq 10 meq PO DAILY 05/03/23 10/17/24 Unknown History tablet,extended release(part/cryst) rizatriptan 10 mg tablet 10 mg PO PRN PRN Migraine Headache 05/03/23 10/17/24 Unknown History vitamin B complex (B 1 tablet PO DAILY 05/03/23 10/17/24 Unknown History Complex-Vitamin B12 tablet) baclofen 5 mg tablet 5 mg PO TID 10/17/24 10/17/24 Unknown History bumetanide 1 mg tablet 1 mg PO DAILY 10/17/24 10/17/24 Unknown History calcium carbonate 500 mg PO DAILY 10/17/24 10/17/24 Unknown History dexamethasone 4 mg tablet 4 mg PO DAILY 10/17/24 10/17/24 Unknown History gabapentin 300 mg capsule 300 mg PO TID 10/17/24 10/17/24 Unknown History levetiracetam 500 mg tablet 500 mg PO BID 10/17/24 10/17/24 Unknown History menthol 0.44 %-zinc oxide 20.6 % 1 applic topical BID redness and 10/17/24 10/17/24 Unknown History topical ointment (CalProtect) excoriation metformin 500 mg tablet 500 mg PO Q12H 10/17/24 10/18/24 Unknown History metoprolol tartrate 25 mg tablet 25 mg PO BID 10/17/24 10/17/24 Unknown History ondansetron 8 mg disintegrating 8 mg PO Q8H PRN nausea and vomiting 10/17/24 10/17/24 Unknown History tablet prochlorperazine maleate 10 mg 10 mg PO Q6H PRN nausea and 10/17/24 10/17/24 Unknown History tablet vomiting simvastatin 20 mg tablet 20 mg PO DAILY 10/17/24 10/17/24 Unknown History <Anay Rod PA-C - Last Filed: 10/17/24 20:40> Allergies/Adverse Reactions: Allergies Allergy/AdvReac Type Severity Reaction Status Date / Time No Known Allergies Allergy Verified 10/17/24 14:02 <Anay Rod PA-C - Last Filed: 10/17/24 20:40> Review of Systems 2 Review of Systems: ROS unobtainable: Yes unobtainable due to medical condition <Anay Rod PA-C - Last Filed: 10/17/24 20:40> [facility] Past Medical History Medical History: Medical History Brain cancer tumor resection 2017 - still some residual which presumably caused CVA 2021 Wheelchair dependent History of falling Generalized anxiety disorder Obstructive sleep apnea Constipation GERD (gastroesophageal reflux disease) Aphasia Hemiplegia Hyperlipidemia Hypertension COPD (chronic obstructive pulmonary disease) Type II diabetes mellitus CVA (cerebral vascular accident) secondary to brain tumor - right sided hemiplegia, dysphagia <Anay Rod PA-C - Last Filed: 10/17/24 20:40> Social History Social History: Social History Smoking status: Never smoker Alcohol intake: former Drinks per week: 1 Substance use: never Do You Feel Safe in your Home?: Yes Lack of Transportation: No Lack of Food: Never True Current Housing: I Have Housing Concerned About Future Housing: No Difficulty Paying Gas/Electric Bills: No Difficulty Paying for Meds: No Currently Unemployed: No Education: High School Diploma/GED Difficulty w/ Childcare or Family Care: No [facility] arrangements[facility] Occupation/Education: retired Gender identity (if verbalized by the patient): Male Sexual Orientation (if Verbalized by the Patient): Straight or Heterosexual Spiritual care concerns: No <Anay Rod PA-C - Last Filed: 10/17/24 20:40> Exam 2 Narrative: GENERAL: Chronically ill-appearing, obese with BMI of 39.7, non-toxic, in no acute distress. HEAD: Normocephalic, atraumatic. EYES: PERRL/EOMI, conjunctivae clear bilaterally. No nystagmus. NECK: Supple. No meningeal signs. RESPIRATORY: Airway patent, respirations nonlabored. Clear to auscultation bilaterally, no rales, rhonchi, wheezing. CARDIOVASCULAR: Regular rate and rhythm without murmurs, rubs, or gallops. Peripheral pulses 2+ and equal bilaterally. MUSCULOSKELETAL: No gross deformities. Diffuse pitting edema of BLE, appears symmetric. SKIN: Warm, dry, normal color. No rashes. NEURO: Alert, follows commands easily. Speech is clear and able to say yes/no/one, otherwise aphasic. Appreciable R sided facial drooping/asymmetry with smiling. Hemiplegia of RUE/RLE. Full ROM of LUE/LLE, w/o weakness. Strong staff radiographer strength on L. Sensation grossly intact. No ataxic movements. PSYCHIATRIC: Appropriate mood and affect. Normal interaction. <Anay Rod PA-C - Last Filed: 10/17/24 20:40> Course QUALITY ENG/PA Physician Supervision For this patient encounter, I reviewed the QUALITY ENG or PA documentation, treatment plan, and medical decision making; and I had [id number] time with this patient. <Darion Green MD - Last Filed: 10/18/24 10:29> Vital Signs Vital signs: Vital Signs Pulse Rate 80 10/17/24 13:40 Respiratory Rate 14 10/17/24 13:40 Blood Pressure 125/72 10/17/24 13:40 Pulse Oximetry 97 10/17/24 13:40 Oxygen Delivery Room Air 10/17/24 13:40 Temperature 97.7 F 10/18/24 04:24 Pulse Rate 78 10/18/24 04:24 Respiratory Rate 16 10/18/24 04:24 Blood Pressure 150/80 H 10/18/24 04:24 Pulse Oximetry 97 10/18/24 04:24 Oxygen Delivery Room Air 10/17/24 13:40 <Anay Rod PA-C - Last Filed: 10/17/24 20:40> Vital Signs Pulse Rate 80 10/17/24 13:40 Respiratory Rate 14 10/17/24 13:40 Blood Pressure 125/72 10/17/24 13:40 Pulse Oximetry 97 10/17/24 13:40 Oxygen Delivery Room Air 10/17/24 13:40 Temperature 97.7 F 10/18/24 04:24 Pulse Rate 78 10/18/24 04:24 Respiratory Rate 16 10/18/24 04:24 Blood Pressure 150/80 H 10/18/24 04:24 Pulse Oximetry 97 10/18/24 04:24 Oxygen Delivery Room Air 10/17/24 13:40 <Darion Green MD - Last Filed: 10/18/24 10:29> MDM - Neuro Symptoms/Deficit MDM Narrative Medical decision making narrative: Patient presented to ED with pain and spasms throughout right arm, right leg for the past few months. History of CVA with right-sided hemiplegia. On gabapentin. Patient denying any active pain upon my evaluation. Family also reported worsening right-sided facial droop today. Reports patient has a chronic facial droop, though it appears more pronounced today. This was noted by nursing staff around noon. Unknown last known completely well. Given this as well as the fact that patient is on chronic anticoagulation/Eliquis, he is not a candidate for TNK. Vital signs are stable upon arrival. Patient is in no acute distress. Able to follow all commands, but has aphasia which is chronic. EKG with sinus rhythm, some artifact present. Troponin undetectable. Cbc without leukocytosis. Chronic anemia, consistent with previous records. Mild thrombocytopenia noted. Electrolytes are stable. Kidney function at baseline. Chest x-ray is clear. CT brain noncontrast negative. CTA brain and carotids also negative, notes small caliber R vertebral artery but otherwise negative, no LVO, no significant carotid stenosis. Discussed case with Dr. Norris, neurology, recommended admission for MRI, will consult. Discussed case with Carlee WITT hospitalist, accepted patient for admission. Patient and family in agreement with plan and admission. <Anay Rod PA-C - Last Filed: 10/17/24 20:40> Medical Records Attestation: I reviewed the patient's medical records. <Anay Rod PA-C - Last Filed: 10/17/24 20:40> Lab Data Attestation: I reviewed the patient's lab results. <Anay Rod PA-C - Last Filed: 10/17/24 20:40> Result diagrams: 10/18/24 05:15 10/18/24 05:15 <JAZMÍN Roche Last Filed: 10/17/24 20:40> Labs: Lab Results 10/17/24 10/17/24 Range/Units 13:51 14:20 WBC 7.7 (4.5-10.0) K/mm3 RBC 3.19 L (4.6-6.20) M/mm3 Hgb 9.3 L D (14.0-18.0) g/dL Hct 30.6 L (42.0-52.0) % MCV 95.9 (80-100) fl MCH 29.2 (26-34) pg MCHC 30.4 L (32-36) g/dl RDW 18.5 H (11.5-14.5) % Plt Count 112 L (150-375) k/mm3 MPV 8.8 (7.4-10.4) fl Immature Gran % (Auto) 0.9 H (0-0.5) % Neut % (Auto) 87.4 H (45.5-73.1) % Lymph % (Auto) 3.5 L (18.3-44.2) % [place] % (Auto) 7.8 (2.6-8.5) % Eos % (Auto) 0.4 (0-4.4) % Baso % (Auto) 0.0 L (0.2-1.2) % Lymph # (Auto) 0.27 L (0.9-3.2) K/mm3 [place] # (Auto) 0.6 (0.1-0.6) K/mm3 Eos # (Auto) 0.0 (0-0.3) K/mm3 Baso # (Auto) 0.0 (0.0-0.1) K/mm3 Abs Immat Gran (auto) 0.07 H (0.00-0.031) K/mm3 Absolute Neuts (auto) 6.7 (1.3-6.7) K/mm3 Absolute Nucleated RBC 0.000 (0.0-0.012) K/mm3 Band Neutrophils % Not Reportable Nucleated RBC % 0.0 (0.0-0.2) % Platelet Estimate Slightly decreased (Adequate) Hypochromasia 1+ Anisocytosis 1+ Schistocytes None seen PT 13.3 (11.1-14.7) Seconds INR 1.0 APTT 28.1 (22.3-36.8) Seconds Sodium 142 (137-145) mmol/L Potassium 4.1 (3.4-5.0) mmol/L Chloride 104 (98-107) mmol/L Carbon Dioxide 31 H (22-30) mmol/L Anion Gap 7 (4-12) mmol/L BUN 32 H D (9-20) mg/dL Creatinine 1.47 H (0.7-1.3) mg/dL Estim Creat Clear Calc 65 ml/min Estimated GFR 48 L (59 - ) Glucose 131 H (65-110) mg/dL POC Capillary Glucose 153 H (65-105) mg/dl Calcium 9.1 (8.4-10.2) mg/dL Total Bilirubin 0.2 (0.2-1.3) mg/dL AST 19 (17-59) U/L ALT 25 (6-50) U/L Alkaline Phosphatase 56 (38-126) U/L Troponin I < 0.012 (0.000-0.034) ng/mL Total Protein 7.0 (6.3-8.2) g/dL Albumin 3.8 (3.5-5.1) g/dL <Anay Rod PA-C - Last Filed: 10/17/24 20:40> Lab Results 10/17/24 10/17/24 Range/Units 13:51 14:20 WBC 7.7 (4.5-10.0) K/mm3 RBC 3.19 L (4.6-6.20) M/mm3 Hgb 9.3 L D (14.0-18.0) g/dL Hct 30.6 L (42.0-52.0) % MCV 95.9 (80-100) fl MCH 29.2 (26-34) pg MCHC 30.4 L (32-36) g/dl RDW 18.5 H (11.5-14.5) % Plt Count 112 L (150-375) k/mm3 MPV 8.8 (7.4-10.4) fl Immature Gran % (Auto) 0.9 H (0-0.5) % Neut % (Auto) 87.4 H (45.5-73.1) % Lymph % (Auto) 3.5 L (18.3-44.2) % [place] % (Auto) 7.8 (2.6-8.5) % Eos % (Auto) 0.4 (0-4.4) % Baso % (Auto) 0.0 L (0.2-1.2) % Lymph # (Auto) 0.27 L (0.9-3.2) K/mm3 [place] # (Auto) 0.6 (0.1-0.6) K/mm3 Eos # (Auto) 0.0 (0-0.3) K/mm3 Baso # (Auto) 0.0 (0.0-0.1) K/mm3 Abs Immat Gran (auto) 0.07 H (0.00-0.031) K/mm3 Absolute Neuts (auto) 6.7 (1.3-6.7) K/mm3 Absolute Nucleated RBC 0.000 (0.0-0.012) K/mm3 Band Neutrophils % Not Reportable Nucleated RBC % 0.0 (0.0-0.2) % Platelet Estimate Slightly decreased (Adequate) Hypochromasia 1+ Anisocytosis 1+ Schistocytes None seen PT 13.3 (11.1-14.7) Seconds INR 1.0 APTT 28.1 (22.3-36.8) Seconds Sodium 142 (137-145) mmol/L Potassium 4.1 (3.4-5.0) mmol/L Chloride 104 (98-107) mmol/L Carbon Dioxide 31 H (22-30) mmol/L Anion Gap 7 (4-12) mmol/L BUN 32 H D (9-20) mg/dL Creatinine 1.47 H (0.7-1.3) mg/dL Estim Creat Clear Calc 65 ml/min Estimated GFR 48 L (59 - ) Glucose 131 H (65-110) mg/dL POC Capillary Glucose 153 H (65-105) mg/dl Calcium 9.1 (8.4-10.2) mg/dL Total Bilirubin 0.2 (0.2-1.3) mg/dL AST 19 (17-59) U/L ALT 25 (6-50) U/L Alkaline Phosphatase 56 (38-126) U/L Troponin I < 0.012 (0.000-0.034) ng/mL Total Protein 7.0 (6.3-8.2) g/dL Albumin 3.8 (3.5-5.1) g/dL <Darion Green MD - Last Filed: 10/18/24 10:29> Imaging Data Attestation: I personally reviewed and interpreted this imaging study as follows: < Anay Rod PA-C - Last Filed: 10/17/24 20:40> Radiologist's impression: ITS Impressions Chest X-Ray 10/17/24 14:10 IMPRESSION: No acute cardiopulmonary pathology. Head CT 10/17/24 15:25 IMPRESSION: No acute intracranial findings. No change from previous examination. Head/Neck CTA 10/17/24 15:44 IMPRESSION: 1. Normal CTA head and neck. Percent stenosis per NASCET criteria is 0%. 2. Small caliber of the right vertebral artery. <JAZMÍN Roche Last Filed: 10/17/24 20:40> ECG Data EKG #1: Attestation: I personally reviewed and interpreted this ECG as follows: <JAZMÍN Roche Last Filed: 10/17/24 20:40> ECG completion date: 10/17/24 <JAZMÍN Roche Last Filed: 10/17/24 20:40> ECG completion time: 14:03 <JAZMÍN Roche Last Filed: 10/17/24 20:40> EKG Interpretation: normal rate (76), sinus rhythm, PVCs and non-specific ST changes < JAZMÍN Roche Last Filed: 10/17/24 20:40> Discharge Plan Discharge Clinical Impression: Facial droop, History of CVA (cerebrovascular accident), Right hemiplegia <JAZMÍN Roche Last Filed: 10/17/24 20:40> Patient Disposition: Still a Patient <JAZMÍN Roche Last Filed: 10/17/24 20:40> Condition: Stable <JAZMÍN Roche Last Filed: 10/17/24 20:40>
[2024-10-17 14:26] LABS: Eosinophils Percent Auto 0.4 % (0-4.4); Hematocrit 30.6 % (42.0-52.0); Hemoglobin 9.3 g/dL (14.0-18.0); Immature Granulocyte Absolute 0.07 K/mm3 (0.00-0.031); Immature Granulocyte Percent A 0.9 % (0-0.5); Lymphocytes Absolute Auto 0.27 K/mm3 (0.9-3.2); Lymphocytes Percent Auto 3.5 % (18.3-44.2); Mean Corpuscular HGB Conc 30.4 g/dl (32-36); Mean Corpuscular Hemoglobin 29.2 pg (26-34); Mean Corpuscular Volume 95.9 fl (80-100); Mean Platelet Volume 8.8 fl (7.4-10.4); Monocytes Absolute Auto 0.6 K/mm3 (0.1-0.6); Monocytes Percent Auto 7.8 % (2.6-8.5); Neutrophils Absolute Auto 6.7 K/mm3 (1.3-6.7); Neutrophils Percent Auto 87.4 % (45.5-73.1); Platelet Count Result 112 k/mm3 (150-375); Red Blood Count 3.19 M/mm3 (4.6-6.20); Red Cell Distribution Width 18.5 % (11.5-14.5); White Blood Count 7.7 K/mm3 (4.5-10.0)
[2024-10-17 14:37] LABS: Alanine Aminotransferase 25 U/L (6-50); Albumin Level 3.8 g/dL (3.5-5.1); Alkaline Phosphatase 56 U/L (38-126); Anion Gap 7 mmol/L (4-12); Aspartate Amino Transferase 19 U/L (17-59); Bilirubin,Total 0.2 mg/dL (0.2-1.3); Blood Urea Nitrogen 32 mg/dL (9-20); Calcium 9.1 mg/dL (8.4-10.2); Carbon Dioxide 31 mmol/L (22-30); Chloride 104 mmol/L (98-107); Estimated CRCL calculation 65 ml/min; Estimated Glomerular Filt Rate 48; Glucose 131 mg/dL (65-110); Potassium 4.1 mmol/L (3.4-5.0); Sodium 142 mmol/L (137-145)
[2024-10-17 14:41] LABS: Prothrombin Time 13.3 Seconds (11.1-14.7)
[2024-10-17 14:42] LABS: Hypochromasia 1+; Partial Thromboplastin Time 28.1 Seconds (22.3-36.8); Platelet Estimate Slightly Decreased (Adequate)
[2024-10-17 14:43] LABS: Anisocytosis 1+
[2024-10-17 14:44] LABS: Schistocytes None Seen
[2024-10-17 14:48] LABS: Troponin I < 0.012 ng/mL (0.000-0.034)
--- NOTE | 2024-10-17 16:11 | PC.NURSE ---
Called and spoke with Jenna pt nurse at [place] and gave update on patient condition.
[2024-10-17] MEDS: ACETAMINOPHEN 500 MG TABLET 1000 MG PO (17:49)
--- NOTE | 2024-10-17 18:47 | P.HP_ITS ---
H&P: HPI History of Present Illness Date/Time: 10/17/24 18:47 Chief Complaint: Stroke-like symptoms Narrative: 64-year-old male past medical history of glioblastoma status post resection right-sided flaccid, DUNG, GERD, hypertension hyperlipidemia and diabetes presents the hospital with increasing facial droop baseline. Patient is aphasic and can say yes, no, and a few other simple words, which is baseline for him. Patient states that he has no complaints. He agrees that his complains about him having increased facial droop. He denies increased weakness to his left side. Right-sided at baseline Patient is anemic at 9.3, BUN 32, creatinine of 1.47. Head CT shows no acute findings. CTA head and neck are 00 normal. Review of Systems Review of Systems: 12 systems were reviewed and are negativ e except for as per HPI. [facility] Past Medical History Medical History Brain cancer tumor resection 2017 - still some residual which presumably caused CVA 2021 Wheelchair dependent History of falling Generalized anxiety disorder Obstructive sleep apnea Constipation GERD (gastroesophageal reflux disease) Aphasia Hemiplegia Hyperlipidemia Hypertension COPD (chronic obstructive pulmonary disease) Type II diabetes mellitus CVA (cerebral vascular accident) secondary to brain tumor - right sided hemiplegia, dysphagia Social History Social History Smoking status: Never smoker Alcohol intake: former Drinks per week: 1 Substance use: never Do You Feel Safe in your Home?: Yes Lack of Transportation: No Lack of Food: Never True Current Housing: I Have Housing Concerned About Future Housing: No Difficulty Paying Gas/Electric Bills: No Difficulty Paying for Meds: No Currently Unemployed: No Education: High School Diploma/GED Difficulty w/ Childcare or Family Care: No Living arrangements: longterm Occupation/Education: retired Gender identity (if verbalized by the patient): Male Sexual Orientation (if Verbalized by the Patient): Straight or Heterosexual Spiritual care concerns: No Meds Home Medications and Allergies Home Medications ?Medication ?Instructions ?Recorded ?Confirmed ?Type acetaminophen 650 mg 650 mg PO Q6H PRN Pain (Scale 05/03/23 10/17/24 History tablet,extended release Score 1-3) amlodipine 10 mg tablet 10 mg PO DAILY 05/03/23 10/17/24 History apixaban 2.5 mg tablet (Eliquis) 2.5 mg PO BID 05/03/23 10/17/24 History bisacodyl 5 mg tablet 10 mg PO DAILY 05/03/23 10/17/24 History calcium carbonate 550 mg chewable 1,100 mg PO DAILY 05/03/23 10/17/24 History tablet clonidine HCl 0.1 mg tablet 0.1 mg PO BID 05/03/23 10/17/24 History duloxetine 30 mg capsule,delayed 20 mg PO DAILY 05/03/23 10/17/24 History release famotidine 20 mg tablet 20 mg PO DAILY 05/03/23 10/17/24 History hydralazine 50 mg tablet 50 mg PO TID 05/03/23 10/17/24 History insulin glargine 100 unit/mL (3 35 unit subcut DAILY 05/03/23 10/17/24 History mL) subcutaneous pen (Lantus Solostar U-100 Insulin) insulin lispro 100 unit/mL 15 unit subcut TID 05/03/23 10/17/24 History subcutaneous pen (Humalog KwikPen (U-100) Insulin) lactulose 10 gram/15 mL oral 15 ml PO BID PRN Constipation 05/03/23 10/17/24 History solution lanolin alcohols-mineral 1 applic topical BID PRN dry skin 05/03/23 10/17/24 History oil-w.petrolatum-ceresin topical cream (Eucerin topical cream) levetiracetam 1,000 mg tablet 2,000 mg PO BID 05/03/23 10/17/24 History magnesium oxide 400 mg PO DAILY 05/03/23 10/17/24 History nystatin 100,000 unit/gram topical 1 applic topical BID PRN groin rash 05/03/23 10/17/24 History powder oxcarbazepine 300 mg tablet 300 mg PO BID 05/03/23 10/17/24 History polyethylene glycol 3350 17 gram 17 g PO DAILY 05/03/23 10/17/24 History oral powder packet (Miralax) potassium chloride 20 mEq 10 meq PO DAILY 05/03/23 10/17/24 History tablet,extended release(part/cryst) rizatriptan 10 mg tablet 10 mg PO PRN PRN Migraine Headache 05/03/23 10/17/24 History vitamin B complex (B 1 tablet PO DAILY 05/03/23 10/17/24 History Complex-Vitamin B12 tablet) baclofen 5 mg tablet 5 mg PO TID 10/17/24 10/17/24 History Allergies Allergy/AdvReac Type Severity Reaction Status Date / Time No Known Allergies Allergy Verified 10/17/24 14:02 Vital Signs Vital Signs - 24 hr 10/17/24 13:40 10/17/24 13:55 10/17/24 13:57 Temperature 97.8 F Pulse Rate 80 74 79 Respiratory Rate 14 14 11 L Blood Pressure 125/72 125/72 125/72 Pulse Oximetry 97 96 96 Oxygen Delivery Room Air 10/17/24 14:01 10/17/24 14:04 10/17/24 15:15 Temperature Pulse Rate 83 76 84 Respiratory Rate 14 12 Blood Pressure 130/82 159/74 H Pulse Oximetry 94 95 Oxygen Delivery 10/17/24 15:31 10/17/24 16:15 10/17/24 17:50 Temperature Pulse Rate 78 96 83 Respiratory Rate 17 15 13 Blood Pressure 155/86 H 156/77 H 154/82 H Pulse Oximetry 97 96 98 Oxygen Delivery Exam Narrative: General: well appearing, appears stated age. HEENT: normocephalic, atraumatic. Mucous membranes moist. EOMI, PERRLA, bilateral sclera anicteric, no conjunctival injection. Neck supple without JVD, lymphadenopathy, or bruit. Respiratory: clear to ascultation bilaterally. No rales/rhonic/wheezes. Cardiovascular: Regular rate and rhythm, normal S1-S2 upon ascultation. No murmurs, rubs, or clicks. PMI is nondisplaced, capillary refill less than 3 second. Abdomen: Soft, round, no pulsatile masses, nondistended and nontender. No rebound, no guarding. No CVA tenderness, no hepatosplenomegaly. Bowel sounds present to all four quadrants. No high pitch or tinkling sounds, resonant to percussion. Extremities: No cyanosis, clubbing, . Pulses are palpable 2/2. Right-sided flaccid with contracted hand and foot drop, left leg strong, +4 pedal edema Neuro: Alert and orientated x 4. PERRLA. Cranial nerves 2-12 intact without f ocal deficit. Skin: Warm, dry, and intact, without rash, erythema, or lesion. Psych: pleasant, cooperative, normal speech, normal affect, no hallucinations, no dysarthia H&P: Results Labs Labs: Short CBC 10/17/24 Range/Units 14:20 WBC 7.7 (4.5-10.0) K/mm3 Hgb 9.3 L D (14.0-18.0) g/dL Hct 30.6 L (42.0-52.0) % Plt Count 112 L (150-375) k/mm3 BMP 10/17/24 14:20 Sodium 142 Potassium 4.1 Chloride 104 Carbon Dioxide 31 H BUN 32 H D Creatinine 1.47 H Glucose 131 H Calcium 9.1 Cardiac Enzymes 10/17/24 Range/Units 14:20 Troponin I < 0.012 (0.000-0.034) ng/mL Liver Function 10/17/24 Range/Units 14:20 Total Bilirubin 0.2 (0.2-1.3) mg/dL AST 19 (17-59) U/L ALT 25 (6-50) U/L Alkaline Phosphatase 56 (38-126) U/L Albumin 3.8 (3.5-5.1) g/dL Assessment and Plan Assessment and plan (1) Stroke-like symptoms: Code(s): R29.90 - Unspecified symptoms and signs involving the nervous system Status: Acute Assessment and Plan: Worsening facial droop per Neurology consulted Frequent neuro checks Restart home Eliquis and statin Permissive hypertension (2) Hypertension: Code(s): I10 - Essential (primary) hypertension Status: Acute Assessment and Plan: Permissive hypertension (3) Type II diabetes mellitus: Code(s): E11.9 - Type 2 diabetes mellitus without complications Status: Acute Assessment and Plan: Diabetic diet Accu-Cheks a.c. HS SSI Lantus and basal insulin (4) GERD (gastroesophageal reflux disease): Code(s): K21.9 - Gastro-esophageal reflux disease without esophagitis Status: Acute Assessment and Plan: Restart Pepcid (5) Hemiplegia: Code(s): G81.90 - Hemiplegia, unspecified affecting unspecified side Status: Acute Assessment and Plan: Right-sided flaccid baseline PT OT eval and treat (6) Constipation: Code(s): K59.00 - Constipation, unspecified Status: Acute Assessment and Plan: Restart home bowel protocol Quality VTE Prophylaxis VTE prophylaxis: mechanical ordered and pharmacologic ordered Hospitalist MIPS Advance Care Plan I have confirmed that the patient's Advanced Care Plan is present, code status is documented, or surrogate decision maker is listed in patient medical record.: Yes Medication Reconciliation I have utilized all available resources to obtain, update and review the patients current medications (includes all prescriptions, OTC, herbals, cannabis, and nutritional supplements).: Yes
--- NOTE | 2024-10-17 21:17 | ADMGEN ---
This patient, Lupillo Talley, was admitted to Medical Room 340-01. Patient/family oriented to hospital policies and general routines including ID bracelet, bed and alarms, visiting hours, pain management, procedures, bathroom and other care routines, personal items, smoking policy, room service/diet, and visiting hours. Information on how to activate the Rapid Response Team has been discussed. Patient/Family are encouraged to report perceived risks to care and to ask questions if they do not understand what they are told or what they should do.
[2024-10-18] VITALS (9 sets, daily range): BP systolic 131–181; BP diastolic 79–89; PULSE 58–92; RESP 16–18; TEMP 36.1–36.5; O2SAT 95–97
[2024-10-18] MEDS: levETIRAcetam 500 MG TABLET 1500 MG PO ×3 (00:32→20:42)
[2024-10-18] MEDS: BACLOFEN 5 MG TABLET PO ×4 (00:33→17:14)
[2024-10-18 00:41] LABS: Glucose Point of Care 243 mg/dl (65-105)
[2024-10-18 00:41] LABS: Glucose Point of Care 193 mg/dl (65-105)
[2024-10-18 00:56] LABS: Add Urine Microscopic? NO; Appearance Urine Clear (Clear); Bilirubin Urine Negative (Negative); Blood Urine Negative (Negative); Color Urine Yellow (Yellow); Glucose Urine UA 2+ mg/dL (Negative); Ketones Urine Negative (Negative); Leukocyte Esterase Ur Negative LEU/UL (Negative); Nitrate Urine Negative (Negative); Protein Urine Negative (Negative); Specific Grav Ur 1.031 (1.001-1.035)
[2024-10-18 05:25] LABS: Basophils Percent Auto 0.2 % (0.2-1.2); Eosinophils Absolute Auto 0.1 K/mm3 (0-0.3); Hematocrit 30.9 % (42.0-52.0); Hemoglobin 9.5 g/dL (14.0-18.0); Immature Granulocyte Absolute 0.05 K/mm3 (0.00-0.031); Immature Granulocyte Percent A 0.8 % (0-0.5); Immature Platelet Fraction Pct 0.8 % (0.9-11.2); Lymphocytes Absolute Auto 0.71 K/mm3 (0.9-3.2); Lymphocytes Percent Auto 11.3 % (18.3-44.2); Mean Corpuscular HGB Conc 30.7 g/dl (32-36); Mean Corpuscular Hemoglobin 29.1 pg (26-34); Mean Corpuscular Volume 94.5 fl (80-100); Mean Platelet Volume 8.5 fl (7.4-10.4); Monocytes Absolute Auto 0.8 K/mm3 (0.1-0.6); Monocytes Percent Auto 12.7 % (2.6-8.5); Neutrophils Absolute Auto 4.7 K/mm3 (1.3-6.7); Platelet Count Result 123 k/mm3 (150-375); Red Blood Count 3.27 M/mm3 (4.6-6.20); Red Cell Distribution Width 18.6 % (11.5-14.5); White Blood Count 6.3 K/mm3 (4.5-10.0)
[2024-10-18 05:35] LABS: Anion Gap 6 mmol/L (4-12); Blood Urea Nitrogen 27 mg/dL (9-20); Carbon Dioxide 31 mmol/L (22-30); Chloride 105 mmol/L (98-107); Estimated CRCL calculation 73 ml/min; Estimated Glomerular Filt Rate 57; Glucose 138 mg/dL (65-110); Potassium 3.7 mmol/L (3.4-5.0); Sodium 142 mmol/L (137-145)
[2024-10-18 08:54] LABS: Glucose Point of Care 159 mg/dl (65-105)
[2024-10-18] MEDS: DULoxetine HCL 20 MG CAPSULE.DR PO (10:06)
[2024-10-18] MEDS: OXcarbazepine 300 MG TABLET PO ×2 (10:06→20:42)
[2024-10-18] MEDS: VITAMIN B COMPLEX CAPSULE 1 CAP PO (10:07)
[2024-10-18] MEDS: CALCIUM CARBONATE (TUMS) 500 MG (200 MG ELEMENTAL) 400 MG BY MOUTH (10:07)
[2024-10-18] MEDS: FAMOTIDINE 20 MG TABLET PO (10:08)
[2024-10-18] MEDS: APIXABAN 2.5 MG TABLET PO ×2 (10:09→20:42)
[2024-10-18] MEDS: MAGNESIUM OXIDE 400 MG TABLET PO (10:09)
[2024-10-18] MEDS: BUMETANIDE 1 MG TABLET PO (10:17)
[2024-10-18] MEDS: dexAMETHasone 4 MG TABLET PO (10:17)
[2024-10-18] MEDS: INSULIN GLARGINE (*BKC) 100 UNITS/ML 35 UNITS SUB-Q (10:30)
[2024-10-18] MEDS: INSULIN ASPART (*BKC) 100 UNITS/ML 15 UNITS SUB-Q ×3 (10:34→17:15)
[2024-10-18 12:04] LABS: Glucose Point of Care 191 mg/dl (65-105)
--- NOTE | 2024-10-18 12:08 | P.PNIM_ITS ---
Progress Note: A&P Assessment and Plan (1) Stroke-like symptoms: Code(s): R29.90 - Unspecified symptoms and signs involving the nervous system Status: Acute Assessment and Plan: Worsening facial droop per Neurology consulted Frequent neuro checks Restart home Eliquis and statin Permissive hypertension (2) Hypertension: Code(s): I10 - Essential (primary) hypertension Status: Acute Assessment and Plan: Permissive hypertension (3) Type II diabetes mellitus: Code(s): E11.9 - Type 2 diabetes mellitus without complications Status: Acute Assessment and Plan: Diabetic diet Accu-Cheks a.c. HS SSI Lantus and basal insulin (4) GERD (gastroesophageal reflux disease): Code(s): K21.9 - Gastro-esophageal reflux disease without esophagitis Status: Acute Assessment and Plan: Restart Pepcid (5) Hemiplegia: Code(s): G81.90 - Hemiplegia, unspecified affecting unspecified side Status: Acute Assessment and Plan: Right-sided flaccid baseline PT OT eval and treat (6) Constipation: Code(s): K59.00 - Constipation, unspecified Status: Acute Assessment and Plan: Restart home bowel protocol Plan Worsening right sided facial droop r/o Stroke patient has prior strokes with right sided flaccid paralysis and expressive aphasia with right sided facial droop CT head no acute changes MRI brain, ECHO. A1c and lipid profile Patient tolerating diet adequately today PT/OT/ST consulted Neurology consulted Hypertension on Permissive hypertension DM2 SSI with accucheks adjust with clinical course Prior stroke with right sided paralysis and expressive aphasia continue above care Constipation continue home bowel protocol DUNG continue CPAP On eliquis investigate indication DVT prophylaxis on Eliquis Subjective Date/time seen: 10/18/24 12:08 Interval history: Comfortable at bedside Patient has prior strokes with right sided weakness and expressive aphasia with facial droop Was brought to the hospital for worsening right sided facial droops Review of Systems Review of Systems: 12 systems were reviewed and are negativ e except for as per HPI. Exam Narrative: General: Comfortable at bedside HEENT: normocephalic, atraumatic. Mucous membranes moist. EOMI, PERRLA, bilateral sclera anicteric, no conjunctival injection. Neck supple without JVD, lymphadenopathy, or bruit. Respiratory: clear to auscultation bilaterally. No rales/rhonic/wheezes. Cardiovascular: Regular rate and rhythm, normal S1-S2 upon ascultation. No murmurs, rubs, or clicks. PMI is nondisplaced, capillary refill less than 3 second. Abdomen: Soft, round, no pulsatile masses, nondistended and nontender. No rebound, no guarding. No CVA tenderness, no hepatosplenomegaly. Bowel sounds present to all four quadrants. No high pitch or tinkling sounds, resonant to percussion. Extremities: No cyanosis, clubbing, . Pulses are palpable 2/2. Right-sided fla ccid with contracted hand and foot drop, left leg strong, +4 pedal edema Neuro: Alert and orientated x 4. PERRLA. expressive aphasia, flaccid right sided weakness Skin: Warm, dry, and intact, without rash, erythema, or lesion. Objective Data Vital Signs Vital Signs: Vital Signs - 24 hr 10/17/24 13:40 10/17/24 13:55 10/17/24 13:57 Temperature 97.8 F Pulse Rate 80 74 79 Respiratory Rate 14 14 11 L Blood Pressure 125/72 125/72 125/72 Pulse Oximetry 97 96 96 Oxygen Delivery Room Air 10/17/24 14:01 10/17/24 14:04 10/17/24 15:15 Temperature Pulse Rate 83 76 84 Respiratory Rate 14 12 Blood Pressure 130/82 159/74 H Pulse Oximetry 94 95 Oxygen Delivery 10/17/24 15:31 10/17/24 16:15 10/17/24 16:16 Temperature Pulse Rate 78 96 80 Respiratory Rate 17 15 17 Blood Pressure 155/86 H 156/77 H 156/77 H Pulse Oximetry 97 96 95 Oxygen Delivery 10/17/24 16:46 10/17/24 17:31 10/17/24 17:50 Temperature Pulse Rate 80 80 83 Respiratory Rate 11 L 15 13 Blood Pressure 162/92 H 154/82 H 154/82 H Pulse Oximetry 96 93 98 Oxygen Delivery 10/17/24 17:54 10/17/24 18:16 10/17/24 19:01 Temperature Pulse Rate 83 73 86 Respiratory Rate 13 15 12 Blood Pressure 152/78 H 174/91 H 189/104 H Pulse Oximetry 98 95 99 Oxygen Delivery 10/17/24 19:46 10/17/24 21:21 10/18/24 00:00 Temperature 97.7 F Pulse Rate 85 87 58 L Respiratory Rate 11 L 18 Blood Pressure 161/92 H 175/91 H Pulse Oximetry 94 98 Oxygen Delivery 10/18/24 04:00 10/18/24 04:24 Temperature 97.7 F Pulse Rate 85 78 Respiratory Rate 16 Blood Pressure 150/80 H Pulse Oximetry 97 Oxygen Delivery Intake/Output Intake/Output: Intake & Output 10/15/24 10/16/24 10/17/24 10/18/24 23:59 23:59 23:59 23:59 Intake Total 610 Output Total 1100 Balance -490 Meds/Results Medications: Active Medications Generic Name Dose Route Start Last Admin Trade Name Freq PRN Reason Stop Dose Admin Acetaminophen 650 mg 10/17/24 19:08 Acetaminophen 325 Mg Tablet PO Q4H PRN Mild Pain (1-3) or Fever Apixaban 2.5 mg 10/18/24 09:00 10/18/24 10:09 Apixaban 2.5 Mg Tablet PO 2.5 mg Q12HR JAMILA Administration Baclofen 5 mg 10/17/24 23:10 10/18/24 10:06 Baclofen 5 Mg Tablet PO 5 mg TID JAMILA Administration Bisacodyl 10 mg 10/18/24 09:00 10/18/24 10:10 Bisacodyl 5 Mg Tablet Ec PO Not Given DAILY JAMILA Bumetanide 1 mg 10/18/24 09:00 10/18/24 10:17 Bumetanide 1 Mg Tablet PO 1 mg DAILY JAMILA Administration Calcium Carbonate 400 mg 10/18/24 09:00 10/18/24 10:07 Calcium Carbonate (Tums) 500 Mg (200 Mg Elemental) BY MOUTH 400 mg DAILY JAMILA Administration Dexamethasone 4 mg 10/18/24 09:00 10/18/24 10:17 Dexamethasone 4 Mg Tablet PO 4 mg DAILY JAMILA Administration Dextrose 12.5 gm 10/17/24 19:08 Dextrose 50% 25 Gm/50 Ml Syringe IV PUSH PRN PRN Hypoglycemia Protocol Duloxetine HCl 20 mg 10/18/24 09:00 10/18/24 10:06 Duloxetine Hcl 20 Mg Capsule.Dr PO 20 mg DAILY JAMILA Administration Famotidine 20 mg 10/18/24 09:00 10/18/24 10:08 Famotidine 20 Mg Tablet PO 20 mg DAILY JAMILA Administration Glucagon 1 mg 10/17/24 19:08 Glucagon For Inj 1 Mg Vial IM PRN PRN Hypoglycemia Protocol Glucose 15 gm 10/17/24 19:08 Glucose Oral Gel 15 Gm Of Glucse In 37.5 Gm Tube PO PRN PRN Hypoglycemia Protocol Dextrose 1,000 mls @ 100 mls/hr 10/17/24 19:08 Dextrose 5% 1,000 Ml IVPB PRN PRN Hypoglycemia Protocol Insulin Aspart 15 units 10/18/24 09:00 10/18/24 10:34 Insulin Aspart (*Bkc) 100 Units/Ml SUB-Q 15 units TID JAMILA Administration Insulin Aspart 2 - 5 units 10/18/24 08:00 10/18/24 10:06 Insulin Aspart (*Bkc) 100 Units/Ml SUB-Q Not Given TIDWM JAMILA Protocol Insulin Glargine 35 units 10/18/24 09:00 10/18/24 10:30 Insulin Glargine (*Bkc) 100 Units/Ml SUB-Q 35 units DAILY JAMILA Administration Levetiracetam 1,500 mg 10/18/24 00:10 10/18/24 00:32 Levetiracetam 500 Mg Tablet PO 1,500 mg Q12HR JAMILA Administration Magnesium Oxide 400 mg 10/18/24 09:00 10/18/24 10:09 Magnesium Oxide 400 Mg Tablet PO 400 mg DAILY JAMILA Administration Ondansetron HCl 4 mg 10/17/24 19:08 Ondansetron Inj 4 Mg/2 Ml Vial IV PUSH Q4H PRN Nausea Oxcarbazepine 300 mg 10/18/24 09:00 10/18/24 10:06 Oxcarbazepine 300 Mg Tablet PO 300 mg Q12HR JAMILA Administration Perflutren Lipid Microsphere 0 ml 10/18/24 08:39 Perflutren Lipid Microspheres 1.5 Ml Vial Diluted To 10 Ml Total Volume IV PUSH 10/21/24 08:39 ONCE PRN adequate visualization Protocol Polyethylene Glycol 17 gm 10/18/24 09:00 10/18/24 10:09 Polyethylene Glycol 3350 17 Gm Powd.Pack PO Not Given DAILY JAMILA Vitamin B Complex 1 cap 10/18/24 09:00 10/18/24 10:07 Vitamin B Complex Capsule PO 1 cap DAILY JAMILA Administration Radiology Results: ITS Impressions Chest X-Ray 10/17/24 14:10 IMPRESSION: No acute cardiopulmonary pathology. Head CT 10/17/24 15:25 IMPRESSION: No acute intracranial findings. No change from previous examination. Head/Neck CTA 10/17/24 15:44 IMPRESSION: 1. Normal CTA head and neck. Percent stenosis per NASCET criteria is 0%. 2. Small caliber of the right vertebral artery. Labs Labs: Laboratory Results - last 24 hr 10/17/24 10/17/24 10/17/24 13:51 14:20 21:22 WBC 7.7 RBC 3.19 L Hgb 9.3 L D Hct 30.6 L MCV 95.9 MCH 29.2 MCHC 30.4 L RDW 18.5 H Plt Count 112 L MPV 8.8 Immature Gran % (Auto) 0.9 H Neut % (Auto) 87.4 H Lymph % (Auto) 3.5 L [place] % (Auto) 7.8 Eos % (Auto) 0.4 Baso % (Auto) 0.0 L Lymph # (Auto) 0.27 L [place] # (Auto) 0.6 Eos # (Auto) 0.0 Baso # (Auto) 0.0 Abs Immat Gran (auto) 0.07 H Absolute Neuts (auto) 6.7 Absolute Nucleated RBC 0.000 Band Neutrophils % Not Reportable Nucleated RBC % 0.0 Platelet Estimate Slightly decreased % Immature Plt Fraction Hypochromasia 1+ Anisocytosis 1+ Schistocytes None seen PT 13.3 INR 1.0 APTT 28.1 Sodium 142 Potassium 4.1 Chloride 104 Carbon Dioxide 31 H Anion Gap 7 BUN 32 H D Creatinine 1.47 H Estim Creat Clear Calc 65 Estimated GFR 48 L Glucose 131 H POC Capillary Glucose 153 H 243 H Calcium 9.1 Total Bilirubin 0.2 AST 19 ALT 25 Alkaline Phosphatase 56 Troponin I < 0.012 Total Protein 7.0 Albumin 3.8 Urine Color Urine Appearance Urine pH Ur Specific [place] Urine Protein Urine Glucose (UA) Urine Ketones Ur Blood (Man) Urine Nitrate Urine Bilirubin Urine Urobilinogen Leukocyte Esterase Rfl 10/17/24 10/18/24 10/18/24 23:39 00:43 05:15 WBC 6.3 RBC 3.27 L Hgb 9.5 L Hct 30.9 L MCV 94.5 MCH 29.1 MCHC 30.7 L RDW 18.6 H Plt Count 123 L MPV 8.5 Immature Gran % (Auto) 0.8 H Neut % (Auto) 74.0 H Lymph % (Auto) 11.3 L [place] % (Auto) 12.7 H Eos % (Auto) 1.0 Baso % (Auto) 0.2 Lymph # (Auto) 0.71 L [place] # (Auto) 0.8 H Eos # (Auto) 0.1 Baso # (Auto) 0.0 Abs Immat Gran (auto) 0.05 H Absolute Neuts (auto) 4.7 Absolute Nucleated RBC 0.000 Band Neutrophils % Nucleated RBC % 0.0 Platelet Estimate % Immature Plt Fraction 0.8 L Hypochromasia Anisocytosis Schistocytes PT INR APTT Sodium 142 Potassium 3.7 Chloride 105 Carbon Dioxide 31 H Anion Gap 6 BUN 27 H Creatinine 1.26 Estim Creat Clear Calc 73 Estimated GFR 57 L Glucose 138 H POC Capillary Glucose 193 H Calcium 9.0 Total Bilirubin AST ALT Alkaline Phosphatase Troponin I Total Protein Albumin Urine Color Yellow Urine Appearance Clear Urine pH 7.0 Ur Specific [place] 1.031 Urine Protein Negative Urine Glucose (UA) 2+ H Urine Ketones Negative Ur Blood (Man) Negative Urine Nitrate Negative Urine Bilirubin Negative Urine Urobilinogen 1.0 Leukocyte Esterase Rfl Negative 10/18/24 10/18/24 08:49 11:46 WBC RBC Hgb Hct MCV MCH MCHC RDW Plt Count MPV Immature Gran % (Auto) Neut % (Auto) Lymph % (Auto) [place] % (Auto) Eos % (Auto) Baso % (Auto) Lymph # (Auto) [place] # (Auto) Eos # (Auto) Baso # (Auto) Abs Immat Gran (auto) Absolute Neuts (auto) Absolute Nucleated RBC Band Neutrophils % Nucleated RBC % Platelet Estimate % Immature Plt Fraction Hypochromasia Anisocytosis Schistocytes PT INR APTT Sodium Potassium Chloride Carbon Dioxide Anion Gap BUN Creatinine Estim Creat Clear Calc Estimated GFR Glucose POC Capillary Glucose 159 H 191 H Calcium Total Bilirubin AST ALT Alkaline Phosphatase Troponin I Total Protein Albumin Urine Color Urine Appearance Urine pH Ur Specific [place] Urine Protein Urine Glucose (UA) Urine Ketones Ur Blood (Man) Urine Nitrate Urine Bilirubin Urine Urobilinogen Leukocyte Esterase Rfl Quality VTE Prophylaxis VTE prophylaxis: mechanical ordered and pharmacologic ordered
--- NOTE | 2024-10-18 12:38 | PCSTNOTE ---
Language Communication Evaluation This pleasant 64 year old male was admitted to [facility] on 10/17/24 presenting with stroke-like symptoms. He has a history of a glioblastoma and underwent a tumor resection in 2018. It is assumed that due to residuals from the tumor resection the pt had a CVA in 2021. The pt has R Sided Weakness at baseline but his family feels like it's more pronounced now. Per chart review, pt demonstrates severe expressive aphasia and primarily communicates by saying yes, no , good , and one . This is baseline for the pt. No dysarthria was observed and the pt is A&Ox4. The pt resides at [facility] and per his daughter, Nae, he has been receiving speech therapy to target aphasia for about ~5 years targeting his expressive aphasia. A language evaluation was completed to determine the strengths and weaknesses of the pts language abilities so an individualized treatment plan could be formed to improve communication and identify facilitating strategies. The pt was unable to name common objects this date (pen, hand, thumb, etc.) unless a phonemic cue was provided, but demonstrated auditory comprehension by pointing to the object. He demonstrated good automatic speech with rote tasks such as counting but required cueing to get started. The pt was able to complete unfinished sentences when given a phonemic cue for the beginning sound of the word (Three strikes and you're ___.), and was able to repeat almost all monosyllabic and some multisyllabic words when provided repetition. The pt was able to answer simple yes/no questions but exhibited difficulty with answering moderate yes/no questions and was unable to answer complex yes/no questions. Regarding following directions, the pt was able to follow simple 1-step directions but required a model and repetition for 2-step directions. Throughout the evaluation, the pt demonstrated occasional frustration, specifically when the pt would try to say a word but would say yes or no instead. The pt utilized gestures to supplement his limited expressive language, and demonstrated gratitude throughout the evaluation by saying thank you . A communication board was offered to the pt to aid in communication but the pt verbalized no . His daughter, Nae, stated that they have tried multiple different forms of AAC (tablet) to supplement his language but the pt is not interested. Due to the pts severe expressive aphasia, it is recommended that the pt receive speech therapy while at [facility] to provide compensatory strategies to family and pt, and to provide maintenance of his current communication. The pt and pts daughter verbalized agreement with receiving speech therapy while in the hospital. Dr. Thayer and CRISTOPHER Ba were notified or language evaluation results and recommendations. Thank you for this referral.
--- NOTE | 2024-10-18 12:53 | P.CONNEU_ITS ---
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, dysphagia Social History Social History Smoking status: Never smoker Alcohol intake: former Drinks per week: 1 Substance use: never Do You Feel Safe in your Home?: Yes Lack of Transportation: No Lack of Food: Never True Current Housing: I Have Housing Concerned About Future Housing: No Difficulty Paying Gas/Electric Bills: No Difficulty Paying for Meds: No Currently Unemployed: No Education: High School Diploma/GED Difficulty w/ Childcare or Family Care: No Living arrangements: custodial Occupation/Education: retired Gender identity (if verbalized by the patient): Male Sexual Orientation (if Verbalized by the Patient): Straight or Heterosexual Spiritual care concerns: No Meds Home Medications and Allergies Home Medications ?Medication ?Instructions ?Recorded ?Confirmed ?Type acetaminophen 650 mg 650 mg PO Q6H PRN Pain (Scale 05/03/23 10/17/24 History tablet,extended release Score 1-3) amlodipine 10 mg tablet 10 mg PO DAILY 05/03/23 10/17/24 History apixaban 2.5 mg tablet (Eliquis) 2.5 mg PO BID 05/03/23 10/17/24 History bisacodyl 5 mg tablet 10 mg PO DAILY 05/03/23 10/17/24 History clonidine HCl 0.1 mg tablet 0.1 mg PO Q12H 05/03/23 10/18/24 History duloxetine 30 mg capsule,delayed 20 mg PO DAILY 05/03/23 10/17/24 History release famotidine 20 mg tablet 20 mg PO DAILY 05/03/23 10/17/24 History hydralazine 50 mg tablet 50 mg PO TID 05/03/23 10/17/24 History insulin glargine 100 unit/mL (3 35 unit subcut DAILY 05/03/23 10/17/24 History mL) subcutaneous pen (Lantus Solostar U-100 Insulin) insulin lispro 100 unit/mL 15 unit subcut TID 05/03/23 10/17/24 History subcutaneous pen (Humalog KwikPen (U-100) Insulin) lactulose 10 gram/15 mL oral 15 ml PO BID PRN Constipation 05/03/23 10/17/24 History solution lanolin alcohols-mineral 1 applic topical BID PRN dry skin 05/03/23 10/17/24 History oil-w.petrolatum-ceresin topical cream (Eucerin topical cream) levetiracetam 1,000 mg tablet 1,000 mg PO BID 05/03/23 10/17/24 History magnesium oxide 400 mg PO DAILY 05/03/23 10/17/24 History nystatin 100,000 unit/gram topical 1 applic topical BID PRN groin rash 05/03/23 10/17/24 History powder oxcarbazepine 300 mg tablet 300 mg PO Q12H 05/03/23 10/18/24 History polyethylene glycol 3350 17 gram 17 g PO DAILY 05/03/23 10/17/24 History oral powder packet (Miralax) potassium chloride 20 mEq 10 meq PO DAILY 05/03/23 10/17/24 History tablet,extended release(part/cryst) rizatriptan 10 mg tablet 10 mg PO PRN PRN Migraine Headache 05/03/23 10/17/24 History vitamin B complex (B 1 tablet PO DAILY 05/03/23 10/17/24 History Complex-Vitamin B12 tablet) baclofen 5 mg tablet 5 mg PO TID 10/17/24 10/17/24 History bumetanide 1 mg tablet 1 mg PO DAILY 10/17/24 10/17/24 History calcium carbonate 500 mg PO DAILY 10/17/24 10/17/24 History dexamethasone 4 mg tablet 4 mg PO DAILY 10/17/24 10/17/24 History gabapentin 300 mg capsule 300 mg PO TID 10/17/24 10/17/24 History levetiracetam 500 mg tablet 500 mg PO BID 10/17/24 10/17/24 History menthol 0.44 %-zinc oxide 20.6 % 1 applic topical BID redness and 10/17/24 10/17/24 History topical ointment (CalProtect) excoriation metformin 500 mg tablet 500 mg PO Q12H 10/17/24 10/18/24 History metoprolol tartrate 25 mg tablet 25 mg PO BID 10/17/24 10/17/24 History ondansetron 8 mg disintegrating 8 mg PO Q8H PRN nausea and vomiting 10/17/24 10/17/24 History tablet prochlorperazine maleate 10 mg 10 mg PO Q6H PRN nausea and 10/17/24 10/17/24 History tablet vomiting simvastatin 20 mg tablet 20 mg PO DAILY 10/17/24 10/17/24 History Allergies Allergy/AdvReac Type Severity Reaction Status Date / Time No Known Allergies Allergy Verified 10/17/24 14:02 Vital Signs Vital Signs - 24 hr 10/17/24 13:40 10/17/24 13:55 10/17/24 13:57 Temperature 36.6 C Pulse Rate 80 74 79 Respiratory Rate 14 14 11 L Blood Pressure 125/72 125/72 125/72 Pulse Oximetry 97 96 96 Oxygen Delivery Room Air 10/17/24 14:01 10/17/24 14:04 10/17/24 15:15 Temperature Pulse Rate 83 76 84 Respiratory Rate 14 12 Blood Pressure 130/82 159/74 H Pulse Oximetry 94 95 Oxygen Delivery 10/17/24 15:31 10/17/24 16:15 10/17/24 16:16 Temperature Pulse Rate 78 96 80 Respiratory Rate 17 15 17 Blood Pressure 155/86 H 156/77 H 156/77 H Pulse Oximetry 97 96 95 Oxygen Delivery 10/17/24 16:46 10/17/24 17:31 10/17/24 17:50 Temperature Pulse Rate 80 80 83 Respiratory Rate 11 L 15 13 Blood Pressure 162/92 H 154/82 H 154/82 H Pulse Oximetry 96 93 98 Oxygen Delivery 10/17/24 17:54 10/17/24 18:16 10/17/24 19:01 Temperature Pulse Rate 83 73 86 Respiratory Rate 13 15 12 Blood Pressure 152/78 H 174/91 H 189/104 H Pulse Oximetry 98 95 99 Oxygen Delivery 10/17/24 19:46 10/17/24 21:21 10/18/24 00:00 Temperature 36.5 C Pulse Rate 85 87 58 L Respiratory Rate 11 L 18 Blood Pressure 161/92 H 175/91 H Pulse Oximetry 94 98 Oxygen Delivery 10/18/24 04:00 10/18/24 04:24 Temperature 36.5 C Pulse Rate 85 78 Respiratory Rate 16 Blood Pressure 150/80 H Pulse Oximetry 97 Oxygen Delivery Results Labs 10/18/24 05:15 10/18/24 05:15 Labs: Short CBC 10/17/24 10/18/24 Range/Units 14:20 05:15 WBC 7.7 6.3 (4.5-10.0) K/mm3 Hgb 9.3 L D 9.5 L (14.0-18.0) g/dL Hct 30.6 L 30.9 L (42.0-52.0) % Plt Count 112 L 123 L (150-375) k/mm3 BMP 10/17/24 10/18/24 14:20 05:15 Sodium 142 142 Potassium 4.1 3.7 Chloride 104 105 Carbon Dioxide 31 H 31 H BUN 32 H D 27 H Creatinine 1.47 H 1.26 Glucose 131 H 138 H Calcium 9.1 9.0 Cardiac Enzymes 10/17/24 Range/Units 14:20 Troponin I < 0.012 (0.000-0.034) ng/mL Liver Function 10/17/24 Range/Units 14:20 Total Bilirubin 0.2 (0.2-1.3) mg/dL AST 19 (17-59) U/L ALT 25 (6-50) U/L Alkaline Phosphatase 56 (38-126) U/L Albumin 3.8 (3.5-5.1) g/dL Urine 10/18/24 Range/Units 00:43 Urine Color Yellow (Yellow) Urine Appearance Clear (Clear) Urine pH 7.0 (5.0-9.0) Ur Specific [place] 1.031 (1.001-1.035) Urine Protein Negative (Negative) mg/dL Urine Glucose (UA) 2+ H (Negative) mg/dL
--- NOTE | 2024-10-18 12:55 | P.CONNEU_ITS ---
Assessment and Plan Assessment and plan (1) Right hemiplegia: Code(s): G81.91 - Hemiplegia, unspecified affecting right dominant side Status: Acute (2) COPD (chronic obstructive pulmonary disease): Code(s): J44.9 - Chronic obstructive pulmonary disease, unspecified Status: Acute (3) Type II diabetes mellitus: Code(s): E11.9 - Type 2 diabetes mellitus without complications Status: Acute (4) Hypertension: Code(s): I10 - Essential (primary) hypertension Status: Acute (5) GERD (gastroesophageal reflux disease): Code(s): K21.9 - Gastro-esophageal reflux disease without esophagitis Status: Acute (6) Closed fracture of right hip: Qualifiers: Encounter type: initial encounter Qualified Code(s): S72.001A - Fracture of unspecified part of neck of right femur, initial encounter for closed fracture Code(s): S72.001A - Fracture of unspecified part of neck of right femur, initial encounter for closed fracture Status: Acute (7) Focal seizures: Code(s): R56.9 - Unspecified convulsions Status: Acute Plan 1. status post glioblastoma resection with resultant right hemiplegia and aphasia 2. Recurrent spasms of the right upper and right lower extremity over the last couple of months but recent increase in the severity. 3. Possibility of the focal seizures with resultant increase in the his speech difficulties and increasing the spasm of the right sided upper and lower extremity. 4. Patient is receiving levetiracetam 1500mg b.i.d. significant dose but I will obtain the EEG and if we can document the focal seizures, might add the and other anticonvulsants. At this time he is also taking oxcarbazepine 300mg q.12 hours in addition to gabapentin 300mg p.o. b.i.d. both are anticonvulsant if you want to make any changes or adjustment in the anticonvulsants new or the present with dosage changes obviously eeg will make the basic diff if he can documented recurrent paroxysmal activity. He is already receiving apixaban 2.5mg b.i.d. reason unclear to me will check further. I do not see anything signs of atrial fibrillation mentioned Anywhere. Dexamethasone is obviously being given subsequent to the glioblastoma resection, and medicine like baclofen and gabapentin levetiracetam oxcarbazepine could have been added 1x1 to take care of the spasm or the seizure. Consult date: 10/18/24 HPI: Lupillo Talley is a 64 year old male Admitted to the hospital through the emergency room for the complaints of pain and spasm throughout his right upper extremity and right lower extremity along with the right-sided facial droop patient carries the ongoing diagnosis of 1. COPD 2. Diabetes mellitus 3. Glioblastoma is status post tumor resection 4. Multiple cerebrovascular accident with right-sided hemiparesis and aphasia. He is able to answer only yes or no and as per the family patient has been dealing with pain and spasm throughout his right lower extremity and right upper extremity intermittently over the past couple of months be severe episode of pain on the day of visit to the ER. As per the staff at the facility he was noted to have pronounced right-sided facial droop before he was sent to the emergency room patient does have a chronic right-sided facial droop by it was supposedly more pronounced before he was sent to the emergency room. He has been taking multiple medications as listed particularly amlodipine 10mg daily, apixaban 2.5mg twice a day, clonidine 0.1mg q.12 hours, duloxetine 20mg daily, hydralazine 50mg 3 times a day, insulin 35units subQ daily glargine, insulin subQ 15units 3 times a day Humalog, levetiracetam 1000mg p.o. b.i.d., oxcarbazepine 300mg q.12 hours, baclofen 5mg 3 times a day, dexamethasone 4mg p.o. daily, gabapentin 300mg p.o. 3 times a day, levetiracetam 500mg p.o. b.i.d., simvastatin 20mg daily, he has ongoing history of cancer of the brain tumor was resected in 2018, history of aphasia, history of hemiplegia, and ongoing history of type 2 diabetes and COPD. 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 Vital signs were normal, CBC revealed low platelet count of 123 and hemoglobin of only 9.5, basic metabolic panel was fairly normal march scan was negative chest x-ray was negative CT of the head was unchanged, and CTA of head and neck was normal except the small caliber of the right vertebral artery. 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, dysphagia Social History Social History Smoking status: Never smoker Alcohol intake: former Drinks per week: 1 Substance use: never Do You Feel Safe in your Home?: Yes Lack of Transportation: No Lack of Food: Never True Current Housing: I Have Housing Concerned About Future Housing: No Difficulty Paying Gas/Electric Bills: No Difficulty Paying for Meds: No Currently Unemployed: No Education: High School Diploma/GED Difficulty w/ Childcare or Family Care: No Living arrangements: pen[facility] Occupation/Education: retired Gender identity (if verbalized by the patient): Male Sexual Orientation (if Verbalized by the Patient): Straight or Heterosexual Spiritual care concerns: No Meds Home Medications and Allergies Home Medications ?Medication ?Instructions ?Recorded ?Confirmed ?Type acetaminophen 650 mg 650 mg PO Q6H PRN Pain (Scale 05/03/23 10/17/24 History tablet,extended release Score 1-3) amlodipine 10 mg tablet 10 mg PO DAILY 05/03/23 10/17/24 History apixaban 2.5 mg tablet (Eliquis) 2.5 mg PO BID 05/03/23 10/17/24 History bisacodyl 5 mg tablet 10 mg PO DAILY 05/03/23 10/17/24 History clonidine HCl 0.1 mg tablet 0.1 mg PO Q12H 05/03/23 10/18/24 History duloxetine 30 mg capsule,delayed 20 mg PO DAILY 05/03/23 10/17/24 History release famotidine 20 mg tablet 20 mg PO DAILY 05/03/23 10/17/24 History hydralazine 50 mg tablet 50 mg PO TID 05/03/23 10/17/24 History insulin glargine 100 unit/mL (3 35 unit subcut DAILY 05/03/23 10/17/24 History mL) subcutaneous pen (Lantus Solostar U-100 Insulin) insulin lispro 100 unit/mL 15 unit subcut TID 05/03/23 10/17/24 History subcutaneous pen (Humalog KwikPen (U-100) Insulin) lactulose 10 gram/15 mL oral 15 ml PO BID PRN Constipation 05/03/23 10/17/24 History solution lanolin alcohols-mineral 1 applic topical BID PRN dry skin 05/03/23 10/17/24 History oil-w.petrolatum-ceresin topical cream (Eucerin topical cream) levetiracetam 1,000 mg tablet 1,000 mg PO BID 05/03/23 10/17/24 History magnesium oxide 400 mg PO DAILY 05/03/23 10/17/24 History nystatin 100,000 unit/gram topical 1 applic topical BID PRN groin rash 05/03/23 10/17/24 History powder oxcarbazepine 300 mg tablet 300 mg PO Q12H 05/03/23 10/18/24 History polyethylene glycol 3350 17 gram 17 g PO DAILY 05/03/23 10/17/24 History oral powder packet (Miralax) potassium chloride 20 mEq 10 meq PO DAILY 05/03/23 10/17/24 History tablet,extended release(part/cryst) rizatriptan 10 mg tablet 10 mg PO PRN PRN Migraine Headache 05/03/23 10/17/24 History vitamin B complex (B 1 tablet PO DAILY 05/03/23 10/17/24 History Complex-Vitamin B12 tablet) baclofen 5 mg tablet 5 mg PO TID 10/17/24 10/17/24 History bumetanide 1 mg tablet 1 mg PO DAILY 10/17/24 10/17/24 History calcium carbonate 500 mg PO DAILY 10/17/24 10/17/24 History dexamethasone 4 mg tablet 4 mg PO DAILY 10/17/24 10/17/24 History gabapentin 300 mg capsule 300 mg PO TID 10/17/24 10/17/24 History levetiracetam 500 mg tablet 500 mg PO BID 10/17/24 10/17/24 History menthol 0.44 %-zinc oxide 20.6 % 1 applic topical BID redness and 10/17/24 10/17/24 History topical ointment (CalProtect) excoriation metformin 500 mg tablet 500 mg PO Q12H 10/17/24 10/18/24 History metoprolol tartrate 25 mg tablet 25 mg PO BID 10/17/24 10/17/24 History ondansetron 8 mg disintegrating 8 mg PO Q8H PRN nausea and vomiting 10/17/24 10/17/24 History tablet prochlorperazine maleate 10 mg 10 mg PO Q6H PRN nausea and 10/17/24 10/17/24 History tablet vomiting simvastatin 20 mg tablet 20 mg PO DAILY 10/17/24 10/17/24 History Allergies Allergy/AdvReac Type Severity Reaction Status Date / Time No Known Allergies Allergy Verified 10/17/24 14:02 Vital Signs Vital Signs - 24 hr 10/17/24 13:40 10/17/24 13:55 10/17/24 13:57 Temperature 36.6 C Pulse Rate 80 74 79 Respiratory Rate 14 14 11 L Blood Pressure 125/72 125/72 125/72 Pulse Oximetry 97 96 96 Oxygen Delivery Room Air 10/17/24 14:01 10/17/24 14:04 10/17/24 15:15 Temperature Pulse Rate 83 76 84 Respiratory Rate 14 12 Blood Pressure 130/82 159/74 H Pulse Oximetry 94 95 Oxygen Delivery 10/17/24 15:31 10/17/24 16:15 10/17/24 16:16 Temperature Pulse Rate 78 96 80 Respiratory Rate 17 15 17 Blood Pressure 155/86 H 156/77 H 156/77 H Pulse Oximetry 97 96 95 Oxygen Delivery 10/17/24 16:46 10/17/24 17:31 10/17/24 17:50 Temperature Pulse Rate 80 80 83 Respiratory Rate 11 L 15 13 Blood Pressure 162/92 H 154/82 H 154/82 H Pulse Oximetry 96 93 98 Oxygen Delivery 10/17/24 17:54 10/17/24 18:16 10/17/24 19:01 Temperature Pulse Rate 83 73 86 Respiratory Rate 13 15 12 Blood Pressure 152/78 H 174/91 H 189/104 H Pulse Oximetry 98 95 99 Oxygen Delivery 10/17/24 19:46 10/17/24 21:21 10/18/24 00:00 Temperature 36.5 C Pulse Rate 85 87 58 L Respiratory Rate 11 L 18 Blood Pressure 161/92 H 175/91 H Pulse Oximetry 94 98 Oxygen Delivery 10/18/24 04:00 10/18/24 04:24 Temperature 36.5 C Pulse Rate 85 78 Respiratory Rate 16 Blood Pressure 150/80 H Pulse Oximetry 97 Oxygen Delivery Exam 2 Narrative: Exam this morning revealed him to be awake alert cooperative in no obvious acute distress, head normocephalic with no cranial bruits, neck supple with no meningeal signs, normal range of motions of the neck, extraocular movements spontaneously full without any nystagmus, heart regular with no murmur, lungs clear to auscultation with no rhonchi or crepitations, abdomen is soft nontender, normal bowel sounds, neurologically he is awake alert, able to follow the verbal commands appropriate dose he is unable to communicate verbally, pupils round regular reacting to light equally, feels the vision to finger confrontation were intact in all 4 quadrants, extraocular movements were full with no nystagmus at rest or on extraocular movements, palpebral fissure was symmetrical, face was symmetrical, tongue was in the oral cavity with no fasciculations, motor examination revealed him to have right hemiparesis with hyperreflexia on the right side but the plantar response was questionably up bilaterally, he was noted to have significant edema of the right lower extremity more so of the feet, he had no difficulties in performing czyxsy-wt-eykb-to-finger on the left side, Results Labs 10/18/24 05:15 10/18/24 05:15 Labs: Short CBC 10/17/24 10/18/24 Range/Units 14:20 05:15 WBC 7.7 6.3 (4.5-10.0) K/mm3 Hgb 9.3 L D 9.5 L (14.0-18.0) g/dL Hct 30.6 L 30.9 L (42.0-52.0) % Plt Count 112 L 123 L (150-375) k/mm3 BMP 10/17/24 10/18/24 14:20 05:15 Sodium 142 142 Potassium 4.1 3.7 Chloride 104 105 Carbon Dioxide 31 H 31 H BUN 32 H D 27 H Creatinine 1.47 H 1.26 Glucose 131 H 138 H Calcium 9.1 9.0 Cardiac Enzymes 10/17/24 Range/Units 14:20 Troponin I < 0.012 (0.000-0.034) ng/mL Liver Function 10/17/24 Range/Units 14:20 Total Bilirubin 0.2 (0.2-1.3) mg/dL AST 19 (17-59) U/L ALT 25 (6-50) U/L Alkaline Phosphatase 56 (38-126) U/L Albumin 3.8 (3.5-5.1) g/dL Urine 10/18/24 Range/Units 00:43 Urine Color Yellow (Yellow) Urine Appearance Clear (Clear) Urine pH 7.0 (5.0-9.0) Ur Specific [place] 1.031 (1.001-1.035) Urine Protein Negative (Negative) mg/dL Urine Glucose (UA) 2+ H (Negative) mg/dL
[2024-10-18 16:41] LABS: Glucose Point of Care 119 mg/dl (65-105)
[2024-10-18 22:06] LABS: Glucose Point of Care 194 mg/dl (65-105)
[2024-10-19] VITALS (9 sets, daily range): BP systolic 116–154; BP diastolic 55–75; PULSE 69–94; RESP 18; TEMP 36.3–37.3; O2SAT 95–99
--- NOTE | 2024-10-19 | ECHO_ITS ---
Patient Info Name: Lupillo Talley Age: 64 years : 1960 Gender: Male Ht: 73 in Wt: 290 lbs BSA: 2.65 m2 HR: 81 bpm BP: 141 / 75 mmHg Technical Quality: Good Exam Date: 10/19/2024 11:55 AM Exam Location: Echo Lab Patient Status: Inpatient Admit Date: 10/18/2024 Staff Ordering Physician: Shaq Thayer MD Retail Team Member: Eloise Salmon RDCS Attending Provider: Hank Lynn MD Exam Type: CA echo doppler w bubble study Study Info Indications - STROKE Complete two-dimensional, color flow and Doppler transthoracic echocardiogram is performed with agitated saline. Contrast/Agitated Saline Contrast/Ag. Saline: Agitated Saline Amount: 20.00 ml Existing IV Access: Yes Summary 1. Left ventricular chamber dimension is normal. 2. Left ventricular systolic function is normal, estimated at 60-65%. 3. There is mild concentric increased left ventricular wall thickness. 4. E/e' 9 is minimally elevated. 5. There is mild aortic valve sclerosis. 6. There is trace aortic valve regurgitation. 7. There is trace mitral valve regurgitation. 8. There is trace tricuspid valve regurgitation. 9. No pulmonary hypertension, estimated pulmonary arterial systolic pressure is 32 mmHg. Left Ventricle E/e' 9 is minimally elevated. Left ventricular chamber dimension is normal. Left ventricular systolic function is normal, estimated at 60-65%. There is mild concentric increased left ventricular wall thickness. Right Ventricle Right ventricular chamber dimension is normal. Right ventricular systolic function is normal. Left Atria Left atrial chamber dimension is normal. Right Atria Right atrial chamber dimension is normal. Atrial Septum Agitated saline injection with and without valsalva maneuver opacified right side cardiac chambers without shunt to left side cardiac chambers. Intact interatrial septum visualized by 2D and agitated saline imaging. Aortic Valve The aortic valve is trileaflet. There is mild aortic valve sclerosis. There is no aortic valve stenosis. There is trace aortic valve regurgitation. Pulmonic Valve There is no pulmonic regurgitation. Mitral Valve There is no mitral valve stenosis. There is trace mitral valve regurgitation. Tricuspid Valve There is trace tricuspid valve regurgitation. No pulmonary hypertension, estimated pulmonary arterial systolic pressure is 32 mmHg. Pericardium/Pleural There is no pericardial effusion. Inferior Vena Cava Normal inferior vena cava with >50% collapse upon inspiration consistent with normal right atrial pressure, 5 mmHg. Aorta The aortic root size at the sinus of Valsalva is normal. Left Ventricular Outflow Tract Name Value Normal LVOT 2D LVOT Diameter 2.0 cm LVOT Doppler LVOT Peak Gradient 4 mmHg LVOT Mean Gradient 2 mmHg LVOT VTI 17 cm LVOT VTI/AV VTI Ratio 0.9 LVOT Stroke Volume 53 ml LVOT CO 4.1 l/min LVOT CI 1.6 l/min/m2 Pulmonic Valve Name Value Normal RVOT Doppler RVOT Peak Gradient 3 mmHg PV Doppler PV Peak Gradient 4 mmHg Mitral Valve Name Value Normal MV Doppler MV Decel [place] 275 cm/s2 MV PHT 54 ms MV Area (PHT) 4.0 cm2 4.0-5.0 MV Diastolic Function MV E Peak Velocity 52 cm/s MV A Peak Velocity 96 cm/s MV E/A 0.5 MV Decel Time 188 ms Tricuspid Valve Name Value Normal TV Regurgitation Doppler TR Peak Velocity 259 cm/s TR Peak Gradient 27 mmHg Estimated PAP/RSVP RA Pressure 5 mmHg <=5 PA Systolic Pressure 32 mmHg <36 RV Systolic Pressure 32 mmHg <36 Aorta Name Value Normal Ascending Aorta Ao Root Diameter (MM) 3.8 cm Ao Root Diam Index (MM) 1.4 cm/m2 Aortic Valve Name Value Normal AV Doppler AV Peak Velocity 112 cm/s AV Peak Gradient 5 mmHg AV Mean Gradient 3 mmHg AV VTI 18 cm AV Area (Cont Eq VTI) 3.0 cm2 >=3.0 AV Area (Cont Eq Néstor) 2.8 cm2 AV Regurgitation 2D LVOT Area 3.2 cm2 AV Regurgitation Doppler AR Decel Time 3,606 ms AR Decel [place] 116 cm/s2 AR PHT 1,046 ms Ventricles Name Value Normal LV Dimensions 2D/MM IVS Diastolic Thickness (2D) 0.9 cm 0.6-1.0 IVS Diastole Thickness (MM) 0.7 cm 0.6-1.0 LVID Diastole (2D) 4.3 cm 4.2-5.8 LVID Diastole (MM) 5.4 cm 4.2-5.8 LVIW Diastolic Thickness (2D) 1.1 cm 0.6-1.0 LVIW Diastolic Thickness (MM) 0.8 cm 0.6-1.0 LVID Systole (2D) 2.8 cm 2.5-4.0 LVID Systole (MM) 3.0 cm 2.5-4.0 LVOT Diameter 2.0 cm LV Mass (2D Cubed) 147.55 g 88.00-224.00 LV Mass Index (2D Cubed) 56 g/m2 49-115 Relative Wall Thickness (2D) 0.52 LV Mass (MM Cubed) 137.49 g 88.00-224.00 LV Mass Index (MM Cubed) 52 g/m2 49-115 Relative Wall Thickness (MM) 0.29 LV Fractional Shortening/Ejection Fraction 2D/MM LV Fractional Shortening (2D) 36 % 25-43 LV Fractional Shortening (MM) 44 % 25-43 LV EF (MM Teicholz) 75 % 52-72 LV EF (2D Teicholz) 66 % 52-72 LV Diastolic Volume (4C MOD) 99 ml LV EF (4C MOD) 60 % LV Diastolic Volume (2C MOD) 81 ml LV EF (2C MOD) 61 % LV Diastolic Volume (BP MOD) 90 ml 62-150 LV Diastolic Volume Index (BP MOD) 34 ml/m2 34-74 LV Systolic Volume (BP MOD) 38 ml 21-61 LV Systolic Volume Index (BP MOD) 14 ml/m2 11-31 LV EF (BP MOD) 58 % 52-72 LV Diastolic Length (4C) 8.1 cm LV Systolic Length (4C) 7.3 cm LV Stroke Volume (4C MOD) 59 ml Atria Name Value Normal LA Dimensions LA Dimension (MM) 3.5 cm 3.0-4.1 LA Volume (4C A-L) 45 ml LA Volume (BP A-L) 51 ml RA Dimensions RA Area (4C) 10.4 cm2 <=18.0 Report Signatures
[2024-10-19 05:20] LABS: Eosinophils Percent Auto 0.8 % (0-4.4); Hematocrit 31.6 % (42.0-52.0); Hemoglobin 9.5 g/dL (14.0-18.0); Immature Granulocyte Absolute 0.02 K/mm3 (0.00-0.031); Immature Granulocyte Percent A 0.4 % (0-0.5); Immature Platelet Fraction Pct 0.9 % (0.9-11.2); Lymphocytes Absolute Auto 0.73 K/mm3 (0.9-3.2); Lymphocytes Percent Auto 14.8 % (18.3-44.2); Mean Corpuscular HGB Conc 30.1 g/dl (32-36); Mean Corpuscular Hemoglobin 28.8 pg (26-34); Mean Corpuscular Volume 95.8 fl (80-100); Mean Platelet Volume 9.1 fl (7.4-10.4); Monocytes Absolute Auto 0.7 K/mm3 (0.1-0.6); Monocytes Percent Auto 13.6 % (2.6-8.5); Neutrophils Absolute Auto 3.5 K/mm3 (1.3-6.7); Neutrophils Percent Auto 70.4 % (45.5-73.1); Platelet Count Result 105 k/mm3 (150-375); Red Cell Distribution Width 18.6 % (11.5-14.5); White Blood Count 4.9 K/mm3 (4.5-10.0)
[2024-10-19 05:32] LABS: Alanine Aminotransferase 25 U/L (6-50); Albumin Level 3.8 g/dL (3.5-5.1); Alkaline Phosphatase 58 U/L (38-126); Anion Gap 8 mmol/L (4-12); Aspartate Amino Transferase 18 U/L (17-59); Bilirubin,Total 0.3 mg/dL (0.2-1.3); Blood Urea Nitrogen 26 mg/dL (9-20); Carbon Dioxide 29 mmol/L (22-30); Chloride 104 mmol/L (98-107); Cholesterol 163 mg/dL (0-200); Estimated CRCL calculation 76 ml/min; Estimated Glomerular Filt Rate 59; Glucose 108 mg/dL (65-110); HDL Direct 72 mg/dL; Magnesium 2.1 mg/dL (1.6-2.3); Potassium 3.5 mmol/L (3.4-5.0); Sodium 141 mmol/L (137-145); Triglycerides 115 mg/dL (<150)
[2024-10-19 05:43] LABS: LDL Cholesterol Direct 48 mg/dL
[2024-10-19 08:47] LABS: Glucose Point of Care 127 mg/dl (65-105)
[2024-10-19] MEDS: CALCIUM CARBONATE (TUMS) 500 MG (200 MG ELEMENTAL) 400 MG BY MOUTH (09:28)
[2024-10-19] MEDS: VITAMIN B COMPLEX CAPSULE 1 CAP PO (09:28)
[2024-10-19] MEDS: levETIRAcetam 500 MG TABLET 1500 MG PO ×2 (09:28→20:23)
[2024-10-19] MEDS: ATORVASTATIN 40 MG TABLET PO (09:29)
[2024-10-19] MEDS: ASPIRIN 81 MG ENTERIC TABLET PO (09:29)
[2024-10-19] MEDS: OXcarbazepine 300 MG TABLET PO ×2 (09:29→20:23)
[2024-10-19] MEDS: APIXABAN 2.5 MG TABLET PO ×2 (09:29→20:23)
[2024-10-19] MEDS: BUMETANIDE 1 MG TABLET PO (09:29)
[2024-10-19] MEDS: BISACODYL 5 MG TABLET EC 10 MG PO (09:29)
[2024-10-19] MEDS: FAMOTIDINE 20 MG TABLET PO (09:29)
[2024-10-19] MEDS: MAGNESIUM OXIDE 400 MG TABLET PO (09:29)
[2024-10-19] MEDS: DULoxetine HCL 20 MG CAPSULE.DR PO (09:29)
[2024-10-19] MEDS: BACLOFEN 5 MG TABLET PO ×3 (09:29→17:26)
[2024-10-19] MEDS: dexAMETHasone 4 MG TABLET PO (09:29)
[2024-10-19] MEDS: INSULIN GLARGINE (*BKC) 100 UNITS/ML 35 UNITS SUB-Q (09:30)
[2024-10-19] MEDS: INSULIN ASPART (*BKC) 100 UNITS/ML 15 UNITS SUB-Q ×3 (09:33→17:26)
[2024-10-19] MEDS: polyethylene glycoL 3350 17 GM POWD.PACK PO (09:41)
--- NOTE | 2024-10-19 10:38 | PCPTNOTE ---
Pt dependent for all functional mobility at baseline (josiah lift). Spoke with current hospitalist who is OK of discharging pt from therapy at this time.
--- NOTE | 2024-10-19 11:24 | P.NEURO_ITS ---
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 Anteriorly low amplitude mixed frequency activity was seen. There is a mild anteroposterior gradient. Focal slow wave activity was noted over the left central parietal area extending to mid temporal area nearly continuously throughout the recording. At times sharp wave transients were also seen mixed in with slow-wave in this area. During drowsiness attenuation of background activity was seen however patient did not progress to stage 2 sleep. Hyperventilation or photic stimulation were not performed. IMPRESSION This is an abnormal EEG due to focal slowing and sharp wave activity noted over left central parietal temporal area. Focal slowing is suggestive of unde rlying structural lesion. Sharp transients are suggestive of a inter ictal abnormality. Clinical radiographic correlation are recommended.
[2024-10-19 11:50] LABS: Glucose Point of Care 142 mg/dl (65-105)
--- NOTE | 2024-10-19 12:08 | WPDNEUROPN ---
Progress Note: A&P Assessment and Plan (1) CVA (cerebral vascular accident): Code(s): I63.9 - Cerebral infarction, unspecified Status: Acute (2) Right hemiplegia: Code(s): G81.91 - Hemiplegia, unspecified affecting right dominant side Status: Acute (3) Focal seizures: Code(s): R56.9 - Unspecified convulsions Status: Acute (4) Type II diabetes mellitus: Code(s): E11.9 - Type 2 diabetes mellitus without complications Status: Acute Plan MRI of the brain done today raises possibility of a new additional stroke in the vicinity of the old stroke on the left side on the diffusion scanning sequence although the CT angiogram does not show any abnormal findings. CT scan of the brain also did not show any significant abnormality. LDL is 48 and the patient is on atorvastatin 40 mg a day which should be continued. I will go ahead and order an echocardiogram. With regard to another possibility of malignancy raised by the radiologist I would suggest an opinion from the oncology services to see if they would like to explore this any further she has based upon the Shadow alone it will be difficult to decipher. Glioblastoma certainly is a tumor that is known to recur and hence certainly I would suggest to pursue this further. In the meanwhile if the patient has any further seizure-like activity I shall be glad to assist. Subjective Date/time seen: 10/19/24 12:09 Interval history: 64 years old with history of glioblastoma at treated in 2018 with surgery followed by various other modalities. He had a surgery the left side of the head. Thereafter he had a left CVA in 2021 and had right-sided weakness. I do not have all the details however patient had disturbance of speech with limited abilities. He also had diabetes mellitus. History of seizures and chronic obstructive pulmonary disease diabetes mellitus he lives in skilled nursing but he does have a . He came in because he has been having some spasms of his legs. He has been on Keppra 3000 mg a day and oxcarbazepine 300 mg twice a day and baclofen 5 mg 3 times a day dexamethasone 4 mg daily. He is also on Eliquis 2.5 mg twice a day and aspirin 81 mg a day and atorvastatin 40 mg a day. Review of Systems Review of Systems: Limited since the patient has aphasia with limited ability to talk although he tries his best Exam Narrative: awake and alert trying his best to speak but has aphasia and significant weakness of the right upper and lower limbs also edema of the right foot. Objective Data Vital Signs Vital Signs: Vital Signs - 24 hr 10/18/24 14:00 10/18/24 16:00 10/18/24 20:00 Temperature 96.9 F L Pulse Rate 92 66 87 Respiratory Rate 16 Blood Pressure 131/79 Pulse Oximetry 95 Oxygen Delivery 10/18/24 22:00 10/19/24 00:00 10/19/24 04:00 Temperature 97.6 F Pulse Rate 92 91 69 Respiratory Rate 18 Blood Pressure 181/89 H Pulse Oximetry 97 Oxygen Delivery 10/19/24 06:00 10/19/24 07:50 10/19/24 07:50 Temperature 97.4 F L Pulse Rate 94 94 94 Respiratory Rate 18 18 Blood Pressure 141/75 H Pulse Oximetry 96 96 Oxygen Delivery Room Air Intake/Output Intake/Output: Intake & Output 10/16/24 10/17/24 10/18/24 10/19/24 23:59 23:59 23:59 23:59 Intake Total 1090 620 Output Total 2200 900 Balance -1110 -280 Meds/Results Medications: Active Medications Generic Name Dose Route Start Last Admin Trade Name Freq PRN Reason Stop Dose Admin Acetaminophen 650 mg 10/17/24 19:08 Acetaminophen 325 Mg Tablet PO Q4H PRN Mild Pain (1-3) or Fever Apixaban 2.5 mg 10/18/24 09:00 10/19/24 09:29 Apixaban 2.5 Mg Tablet PO 2.5 mg Q12HR JAMILA Administration Aspirin 81 mg 10/19/24 09:00 10/19/24 09:29 Aspirin 81 Mg Enteric Tablet PO 81 mg QAM JAMILA Administration Atorvastatin Calcium 40 mg 10/19/24 09:00 10/19/24 09:29 Atorvastatin 40 Mg Tablet PO 40 mg DAILY JAMILA Administration Baclofen 5 mg 10/17/24 23:10 10/19/24 09:29 Baclofen 5 Mg Tablet PO 5 mg TID JAMILA Administration Bisacodyl 10 mg 10/18/24 09:00 10/19/24 09:29 Bisacodyl 5 Mg Tablet Ec PO 10 mg DAILY JAMILA Administration Bumetanide 1 mg 10/18/24 09:00 10/19/24 09:29 Bumetanide 1 Mg Tablet PO 1 mg DAILY JAMILA Administration Calcium Carbonate 400 mg 10/18/24 09:00 10/19/24 09:28 Calcium Carbonate (Tums) 500 Mg (200 Mg Elemental) BY MOUTH 400 mg DAILY JAMILA Administration Dexamethasone 4 mg 10/18/24 09:00 10/19/24 09:29 Dexamethasone 4 Mg Tablet PO 4 mg DAILY JAMILA Administration Dextrose 12.5 gm 10/17/24 19:08 Dextrose 50% 25 Gm/50 Ml Syringe IV PUSH PRN PRN Hypoglycemia Protocol Duloxetine HCl 20 mg 10/18/24 09:00 10/19/24 09:29 Duloxetine Hcl 20 Mg Capsule. PO 20 mg DAILY JAMILA Administration Famotidine 20 mg 10/18/24 09:00 10/19/24 09:29 Famotidine 20 Mg Tablet PO 20 mg DAILY JAMILA Administration Glucagon 1 mg 10/17/24 19:08 Glucagon For Inj 1 Mg Vial IM PRN PRN Hypoglycemia Protocol Glucose 15 gm 10/17/24 19:08 Glucose Oral Gel 15 Gm Of Glucse In 37.5 Gm Tube PO PRN PRN Hypoglycemia Protocol Dextrose 1,000 mls @ 100 mls/hr 10/17/24 19:08 Dextrose 5% 1,000 Ml IVPB PRN PRN Hypoglycemia Protocol Insulin Aspart 15 units 10/18/24 09:00 10/19/24 09:33 Insulin Aspart (*Bkc) 100 Units/Ml SUB-Q 15 units TID JAMILA Administration Insulin Aspart 2 - 5 units 10/18/24 08:00 10/19/24 09:24 Insulin Aspart (*Bkc) 100 Units/Ml SUB-Q Not Given TIDWM COUNTS INCLUDE 234 BEDS AT THE [facility] Protocol Insulin Glargine 35 units 10/18/24 09:00 10/19/24 09:30 Insulin Glargine (*Bkc) 100 Units/Ml SUB-Q 35 units DAILY JAMILA Administration Levetiracetam 1,500 mg 10/18/24 00:10 10/19/24 09:28 Levetiracetam 500 Mg Tablet PO 1,500 mg Q12HR JAMILA Administration Magnesium Oxide 400 mg 10/18/24 09:00 10/19/24 09:29 Magnesium Oxide 400 Mg Tablet PO 400 mg DAILY JAMILA Administration Ondansetron HCl 4 mg 10/17/24 19:08 Ondansetron Inj 4 Mg/2 Ml Vial IV PUSH Q4H PRN Nausea Oxcarbazepine 300 mg 10/18/24 09:00 10/19/24 09:29 Oxcarbazepine 300 Mg Tablet PO 300 mg Q12HR JAMILA Administration Perflutren Lipid Microsphere 0 ml 10/18/24 08:39 Perflutren Lipid Microspheres 1.5 Ml Vial Diluted To 10 Ml Total Volume IV PUSH 10/21/24 08:39 ONCE PRN adequate visualization Protocol Polyethylene Glycol 17 gm 10/18/24 09:00 10/19/24 09:41 Polyethylene Glycol 3350 17 Gm Powd.Pack PO 17 gm DAILY JAMILA Administration Vitamin B Complex 1 cap 10/18/24 09:00 10/19/24 09:28 Vitamin B Complex Capsule PO 1 cap DAILY JAMILA Administration Radiology Results: ITS Impressions Chest X-Ray 10/17/24 14:10 IMPRESSION: No acute cardiopulmonary pathology. Head CT 10/17/24 15:25 IMPRESSION: No acute intracranial findings. No change from previous examination. Head/Neck CTA 10/17/24 15:44 IMPRESSION: 1. Normal CTA head and neck. Percent stenosis per NASCET criteria is 0%. 2. Small caliber of the right vertebral artery. Brain MRI 10/19/24 10:08 IMPRESSION: 1. Small region of restricted diffusion along the posterior left caudate nucleus consistent with acute infarct at the periphery of a large region of encephalomalacia involving the left parietal, temporal and posterior frontal lobes and also involving portions of the left thalamus and insula which could represent either sequela of old infarct, prior surgery rather treatment for reported glioblastoma. 2. Diffuse serpiginous pattern of enhancement along the margins of the region of encephalomalacia which raises concern for residual disease although differential would include sequela of prior infarct or surgery. Evaluation is limited in the absence of prior postcontrast imaging to assess for evolution which would favor malignancy. Labs Labs: Laboratory Results - last 24 hr 10/18/24 10/18/24 10/19/24 16:38 22:00 04:55 WBC 4.9 RBC 3.30 L Hgb 9.5 L Hct 31.6 L MCV 95.8 MCH 28.8 MCHC 30.1 L RDW 18.6 H Plt Count 105 L MPV 9.1 Immature Gran % (Auto) 0.4 Neut % (Auto) 70.4 Lymph % (Auto) 14.8 L [place] % (Auto) 13.6 H Eos % (Auto) 0.8 Baso % (Auto) 0.0 L Lymph # (Auto) 0.73 L [place] # (Auto) 0.7 H Eos # (Auto) 0.0 Baso # (Auto) 0.0 Abs Immat Gran (auto) 0.02 Absolute Neuts (auto) 3.5 Absolute Nucleated RBC 0.000 Nucleated RBC % 0.0 % Immature Plt Fraction 0.9 Sodium 141 Potassium 3.5 Chloride 104 Carbon Dioxide 29 Anion Gap 8 BUN 26 H Creatinine 1.22 Estim Creat Clear Calc 76 Estimated GFR 59 Glucose 108 POC Capillary Glucose 119 H 194 H Calcium 9.0 Magnesium 2.1 Total Bilirubin 0.3 AST 18 ALT 25 Alkaline Phosphatase 58 Total Protein 7.0 Albumin 3.8 Triglycerides 115 Cholesterol 163 LDL Cholesterol Direct 48 HDL Direct 72 10/19/24 10/19/24 08:37 11:37 WBC RBC Hgb Hct MCV MCH MCHC RDW Plt Count MPV Immature Gran % (Auto) Neut % (Auto) Lymph % (Auto) [place] % (Auto) Eos % (Auto) Baso % (Auto) Lymph # (Auto) [place] # (Auto) Eos # (Auto) Baso # (Auto) Abs Immat Gran (auto) Absolute Neuts (auto) Absolute Nucleated RBC Nucleated RBC % % Immature Plt Fraction Sodium Potassium Chloride Carbon Dioxide Anion Gap BUN Creatinine Estim Creat Clear Calc Estimated GFR Glucose POC Capillary Glucose 127 H 142 H Calcium Magnesium Total Bilirubin AST ALT Alkaline Phosphatase Total Protein Albumin Triglycerides Cholesterol LDL Cholesterol Direct HDL Direct
--- NOTE | 2024-10-19 12:17 | PCSTNOTE ---
On 10/19/24, the student, Denise Mckeon, provided care and completed [facility] documentation on this patient. I have reviewed the student's documentation and agree with the findings.
--- NOTE | 2024-10-19 14:37 | P.PNIM_ITS ---
Progress Note: A&P Assessment and Plan (1) Stroke-like symptoms: Code(s): R29.90 - Unspecified symptoms and signs involving the nervous system Status: Acute Assessment and Plan: Worsening facial droop per Neurology consulted Frequent neuro checks Restart home Eliquis and statin Permissive hypertension (2) Hypertension: Code(s): I10 - Essential (primary) hypertension Status: Acute Assessment and Plan: Permissive hypertension (3) Type II diabetes mellitus: Code(s): E11.9 - Type 2 diabetes mellitus without complications Status: Acute Assessment and Plan: Diabetic diet Accu-Cheks a.c. HS SSI Lantus and basal insulin (4) GERD (gastroesophageal reflux disease): Code(s): K21.9 - Gastro-esophageal reflux disease without esophagitis Status: Acute Assessment and Plan: Restart Pepcid (5) Hemiplegia: Code(s): G81.90 - Hemiplegia, unspecified affecting unspecified side Status: Acute Assessment and Plan: Right-sided flaccid baseline PT OT eval and treat (6) Constipation: Code(s): K59.00 - Constipation, unspecified Status: Acute Assessment and Plan: Restart home bowel protocol Plan ACute stroke Presented with worsening Facial droop MRI showed acute stroke patient has prior strokes with right sided flaccid paralysis and expressive aphasia with right sided facial droop CT head no acute changes ECHO. EF 60-65%, A1c , LDL 48 Patient tolerating diet which is baseline Aspirin, Lipitor PT/OT/ST consulted Neurology following Focal seizures continue Oxcarbazepine and Keppra EEG ordered per Neurology Neurology following Possible recurrent Glioblastoma Patient has a history of Glioblastoma on Dexamethasone MRI brain showed possible recurrent glioblastoma per neurology Oncology consulted monitor Hypertension on Permissive hypertension DM2 SSI with accucheks adjust with clinical course Prior stroke with right sided paralysis and expressive aphasia continue above care Constipation continue home bowel protocol DUNG continue CPAP On Eliquis investigate indication DVT prophylaxis on Eliquis Subjective Date/time seen: 10/19/24 14:37 Interval history: Comfortable at bedside For EEG Review of Systems Review of Systems: 12 systems were reviewed and are negativ e except for as per HPI. Exam Narrative: General: Comfortable at bedside HEENT: normocephalic, atraumatic. Mucous membranes moist. EOMI, PERRLA, bilateral sclera anicteric, no conjunctival injection. Neck supple without JVD, lymphadenopathy, or bruit. Respiratory: clear to auscultation bilaterally. No rales/rhonic/wheezes. Cardiovascular: Regular rate and rhythm, normal S1-S2 upon ascultation. No murmurs, rubs, or clicks. PMI is nondisplaced, capillary refill less than 3 second. Abdomen: Soft, round, no pulsatile masses, nondistended and nontender. No rebound, no guarding. No CVA tenderness, no hepatosplenomegaly. Bowel sounds p resent to all four quadrants. No high pitch or tinkling sounds, resonant to percussion. Extremities: No cyanosis, clubbing, . Pulses are palpable 2/2. Right-sided flaccid with contracted hand and foot drop, left leg strong, +4 pedal edema Neuro: Alert and orientated x 4. PERRLA. expressive aphasia, flaccid right sided weakness Skin: Warm, dry, and intact, without rash, erythema, or lesion. Objective Data Vital Signs Vital Signs: Vital Signs - 24 hr 10/18/24 16:00 10/18/24 20:00 10/18/24 22:00 Temperature 97.6 F Pulse Rate 66 87 92 Respiratory Rate 18 Blood Pressure 181/89 H Pulse Oximetry 97 Oxygen Delivery 10/19/24 00:00 10/19/24 04:00 10/19/24 06:00 Temperature 97.4 F L Pulse Rate 91 69 94 Respiratory Rate 18 Blood Pressure 141/75 H Pulse Oximetry 96 Oxygen Delivery 10/19/24 07:50 10/19/24 12:00 Temperature Pulse Rate 94 80 Respiratory Rate 18 Blood Pressure Pulse Oximetry 96 Oxygen Delivery Room Air Intake/Output Intake/Output: Intake & Output 10/16/24 10/17/24 10/18/24 10/19/24 23:59 23:59 23:59 23:59 Intake Total 1090 860 Output Total 2200 900 Balance -1110 -40 Meds/Results Medications: Active Medications Generic Name Dose Route Start Last Admin Trade Name Freq PRN Reason Stop Dose Admin Acetaminophen 650 mg 10/17/24 19:08 Acetaminophen 325 Mg Tablet PO Q4H PRN Mild Pain (1-3) or Fever Apixaban 2.5 mg 10/18/24 09:00 10/19/24 09:29 Apixaban 2.5 Mg Tablet PO 2.5 mg Q12HR JAMILA Administration Aspirin 81 mg 10/19/24 09:00 10/19/24 09:29 Aspirin 81 Mg Enteric Tablet PO 81 mg QAM JAMILA Administration Atorvastatin Calcium 40 mg 10/19/24 09:00 10/19/24 09:29 Atorvastatin 40 Mg Tablet PO 40 mg DAILY JAMILA Administration Baclofen 5 mg 10/17/24 23:10 10/19/24 12:52 Baclofen 5 Mg Tablet PO 5 mg TID JAMILA Administration Bisacodyl 10 mg 10/18/24 09:00 10/19/24 09:29 Bisacodyl 5 Mg Tablet Ec PO 10 mg DAILY JAMILA Administration Bumetanide 1 mg 10/18/24 09:00 10/19/24 09:29 Bumetanide 1 Mg Tablet PO 1 mg DAILY JAMILA Administration Calcium Carbonate 400 mg 10/18/24 09:00 10/19/24 09:28 Calcium Carbonate (Tums) 500 Mg (200 Mg Elemental) BY MOUTH 400 mg DAILY JAMILA Administration Dexamethasone 4 mg 10/18/24 09:00 10/19/24 09:29 Dexamethasone 4 Mg Tablet PO 4 mg DAILY JAMILA Administration Dextrose 12.5 gm 10/17/24 19:08 Dextrose 50% 25 Gm/50 Ml Syringe IV PUSH PRN PRN Hypoglycemia Protocol Duloxetine HCl 20 mg 10/18/24 09:00 10/19/24 09:29 Duloxetine Hcl 20 Mg Capsule.Dr PO 20 mg DAILY JAMILA Administration Famotidine 20 mg 10/18/24 09:00 10/19/24 09:29 Famotidine 20 Mg Tablet PO 20 mg DAILY JAMILA Administration Glucagon 1 mg 10/17/24 19:08 Glucagon For Inj 1 Mg Vial IM PRN PRN Hypoglycemia Protocol Glucose 15 gm 10/17/24 19:08 Glucose Oral Gel 15 Gm Of Glucse In 37.5 Gm Tube PO PRN PRN Hypoglycemia Protocol Dextrose 1,000 mls @ 100 mls/hr 10/17/24 19:08 Dextrose 5% 1,000 Ml IVPB PRN PRN Hypoglycemia Protocol Insulin Aspart 15 units 10/18/24 09:00 10/19/24 12:50 Insulin Aspart (*Bkc) 100 Units/Ml SUB-Q 15 units TID JAMILA Administration Insulin Aspart 2 - 5 units 10/18/24 08:00 10/19/24 12:30 Insulin Aspart (*Bkc) 100 Units/Ml SUB-Q Not Given TIDWM JAMILA Protocol Insulin Glargine 35 units 10/18/24 09:00 10/19/24 09:30 Insulin Glargine (*Bkc) 100 Units/Ml SUB-Q 35 units DAILY JAMILA Administration Levetiracetam 1,500 mg 10/18/24 00:10 10/19/24 09:28 Levetiracetam 500 Mg Tablet PO 1,500 mg Q12HR JAMILA Administration Magnesium Oxide 400 mg 10/18/24 09:00 10/19/24 09:29 Magnesium Oxide 400 Mg Tablet PO 400 mg DAILY JAMILA Administration Ondansetron HCl 4 mg 10/17/24 19:08 Ondansetron Inj 4 Mg/2 Ml Vial IV PUSH Q4H PRN Nausea Oxcarbazepine 300 mg 10/18/24 09:00 10/19/24 09:29 Oxcarbazepine 300 Mg Tablet PO 300 mg Q12HR JAMILA Administration Perflutren Lipid Microsphere 0 ml 10/18/24 08:39 Perflutren Lipid Microspheres 1.5 Ml Vial Diluted To 10 Ml Total Volume IV PUSH 10/21/24 08:39 ONCE PRN adequate visualization Protocol Perflutren Lipid Microsphere 0 ml 10/19/24 12:21 Perflutren Lipid Microspheres 1.5 Ml Vial Diluted To 10 Ml Total Volume IV PUSH 10/22/24 12:21 ONCE PRN adequate visualization Protocol Polyethylene Glycol 17 gm 10/18/24 09:00 10/19/24 09:41 Polyethylene Glycol 3350 17 Gm Powd.Pack PO 17 gm DAILY JAMILA Administration Vitamin B Complex 1 cap 10/18/24 09:00 10/19/24 09:28 Vitamin B Complex Capsule PO 1 cap DAILY JAMILA Administration Radiology Results: ITS Impressions Chest X-Ray 10/17/24 14:10 IMPRESSION: No acute cardiopulmonary pathology. Head CT 10/17/24 15:25 IMPRESSION: No acute intracranial findings. No change from previous examination. Head/Neck CTA 10/17/24 15:44 IMPRESSION: 1. Normal CTA head and neck. Percent stenosis per NASCET criteria is 0%. 2. Small caliber of the right vertebral artery. Brain MRI 10/19/24 10:08 IMPRESSION: 1. Small region of restricted diffusion along the posterior left caudate nucleus consistent with acute infarct at the periphery of a large region of encephalomalacia involving the left parietal, temporal and posterior frontal lobes and also involving portions of the left thalamus and insula which could represent either sequela of old infarct, prior surgery rather treatment for reported glioblastoma. 2. Diffuse serpiginous pattern of enhancement along the margins of the region of encephalomalacia which raises concern for residual disease although differential would include sequela of prior infarct or surgery. Evaluation is limited in the absence of prior postcontrast imaging to assess for evolution which would favor malignancy. Labs Labs: Laboratory Results - last 24 hr 10/18/24 10/18/24 10/19/24 16:38 22:00 04:55 WBC 4.9 RBC 3.30 L Hgb 9.5 L Hct 31.6 L MCV 95.8 MCH 28.8 MCHC 30.1 L RDW 18.6 H Plt Count 105 L MPV 9.1 Immature Gran % (Auto) 0.4 Neut % (Auto) 70.4 Lymph % (Auto) 14.8 L [place] % (Auto) 13.6 H Eos % (Auto) 0.8 Baso % (Auto) 0.0 L Lymph # (Auto) 0.73 L [place] # (Auto) 0.7 H Eos # (Auto) 0.0 Baso # (Auto) 0.0 Abs Immat Gran (auto) 0.02 Absolute Neuts (auto) 3.5 Absolute Nucleated RBC 0.000 Nucleated RBC % 0.0 % Immature Plt Fraction 0.9 Sodium 141 Potassium 3.5 Chloride 104 Carbon Dioxide 29 Anion Gap 8 BUN 26 H Creatinine 1.22 Estim Creat Clear Calc 76 Estimated GFR 59 Glucose 108 POC Capillary Glucose 119 H 194 H Calcium 9.0 Magnesium 2.1 Total Bilirubin 0.3 AST 18 ALT 25 Alkaline Phosphatase 58 Total Protein 7.0 Albumin 3.8 Triglycerides 115 Cholesterol 163 LDL Cholesterol Direct 48 HDL Direct 72 10/19/24 10/19/24 08:37 11:37 WBC RBC Hgb Hct MCV MCH MCHC RDW Plt Count MPV Immature Gran % (Auto) Neut % (Auto) Lymph % (Auto) [place] % (Auto) Eos % (Auto) Baso % (Auto) Lymph # (Auto) [place] # (Auto) Eos # (Auto) Baso # (Auto) Abs Immat Gran (auto) Absolute Neuts (auto) Absolute Nucleated RBC Nucleated RBC % % Immature Plt Fraction Sodium Potassium Chloride Carbon Dioxide Anion Gap BUN Creatinine Estim Creat Clear Calc Estimated GFR Glucose POC Capillary Glucose 127 H 142 H Calcium Magnesium Total Bilirubin AST ALT Alkaline Phosphatase Total Protein Albumin Triglycerides Cholesterol LDL Cholesterol Direct HDL Direct Quality VTE Prophylaxis VTE prophylaxis: mechanical ordered and pharmacologic ordered
[2024-10-19 16:47] LABS: Glucose Point of Care 126 mg/dl (65-105)
--- NOTE | 2024-10-19 19:34 | WPDONCCN ---
Assessment and Plan Assessment and plan (1) Glioblastoma: Code(s): C71.9 - Malignant neoplasm of brain, unspecified Status: Acute Assessment and Plan: I obtained a full medical history from patient's daughter Ms. Nae Razo as patient has aphasia. Per patient's daughter patient was diagnosed with glioblastoma of the left brain in July of 2018. He was seen by Neuro-Oncology and Neurosurgery team at [facility] in [place] and underwent resection in July 2018. Patient has severe deficit after the resection surgery with right-sided paralysis and aphasia. Per daughter patient then underwent radiation postsurgery in a clinical trial. He then underwent Optune brain treatment also in a clinical trial. He then has been maintained on steroids until May 2024 when an MRI he was noted to have progression. He was started on chemotherapy which daughter is not sure but by the dosing it seems like he is on temozolomide orally for 5 days in a 4 week cycle. He has been on this regimen since July 2024. Patient sees Dr. Travon Stevens, a neuro oncologist at [facility] on a monthly basis with the labs. His last brain MRI was done 08/18/2024 in [place]. There were some concerns of progression in the tumor bed however Dr. Stevens wanted to give it a few more months with the temozolomide treatment. Patient's next appointment with Dr. Stevens is on 10/22/2024. Patient presented to the ER from skilled nursing with concerns of worsening right facial droop and spasms of right upper and lower extremity with concerns of stroke. MRI of Brain done today 10/19/24 shows- IMPRESSION: 1. Small region of restricted diffusion along the posterior left caudate nucleus consistent with acute infarct at the periphery of a large region of encephalomalacia involving the left parietal, temporal and posterior frontal lobes and also involving portions of the left thalamus and insula which could represent either sequela of old infarct, prior surgery rather treatment for reported glioblastoma. 2. Diffuse serpiginous pattern of enhancement along the margins of the region of encephalomalacia which raises concern for residual disease although differential would include sequela of prior infarct or surgery. Evaluation is limited in the absence of prior postcontrast imaging to assess for evolution which would favor malignancy. The area of concern of acute infarct is likely tumor enhancement. No acute hemorrhage. Neurology team is also leaning towards progression rather than infarct. I believe patient needs to keep his Neuro-Oncology appointment on 10/22/2024 at [facility] with Dr. Stevens. Patient should be discharged and brain MRI CD images should be sent with him for Dr. Stevens to evaluate the recent Brain MRI with previous MRIs. We do not want patient to miss his appointment with his neuro oncologist which is very critical at this time. Oncology team at [facility] has no other recommendations. HPI Data of Consult Date/Time: 10/19/24 19:35 Requesting Physician: Hank Lynn MD Primary Care Provider: Carlos Enrique Taylor MD Consult Narrative Narrative: Lupillo Talley is a 64 year old male with past medical history of glioblastoma multiforme of the left brain. I obtained a full medical history from patient's daughter Ms. Nae Razo as patient has aphasia. Per patient's daughter patient was diagnosed with glioblastoma of the left brain in July of 2018. He was seen by Neuro-Oncology and Neurosurgery team at [facility] in [place] and underwent resection in July 2018. Patient has severe deficit after the resection surgery with right-sided paralysis and aphasia. Per daughter patient then underwent radiation postsurgery in a clinical trial. He then underwent Optune brain treatment also in a clinical trial. He then has been maintained on steroids until May 2024 when an MRI he was noted to have progression. He was started on chemotherapy which daughter is not sure but by the dosing it seems like he is on temozolomide orally for 5 days in a 4 week cycle. He has been on this regimen since July 2024. Patient sees Dr. Travon Stevens, a neuro oncologist at [facility] on a monthly basis with the labs. His last brain MRI was done 08/18/2024 in [place]. There were some concerns of progression in the tumor bed however Dr. Stevens wanted to give it a few more months with the temozolomide treatment. Patient's next appointment with Dr. Stevens is on 10/22/2024. Patient presented to the ER from skilled nursing with concerns of worsening right facial droop and spasms of right upper and lower extremity with concerns of stroke. Oncology is consulted for history of glioblastoma. Review of Systems Review of Systems: Not obtained because patient has aphasia. Patient denied any pain. 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, dysphagia Social History Social History Smoking status: Never smoker Alcohol intake: former Drinks per week: 1 Substance use: never Do You Feel Safe in your Home?: Yes Lack of Transportation: No Lack of Food: Never True Current Housing: I Have Housing Concerned About Future Housing: No Difficulty Paying Gas/Electric Bills: No Difficulty Paying for Meds: No Currently Unemployed: No Education: High School Diploma/GED Difficulty w/ Childcare or Family Care: No Living arrangements: skilled nursing Occupation/Education: retired Gender identity (if verbalized by the patient): Male Sexual Orientation (if Verbalized by the Patient): Straight or Heterosexual Spiritual care concerns: No Meds Home Medications and Allergies Home Medications ?Medication ?Instructions ?Recorded ?Confirmed ?Type acetaminophen 650 mg 650 mg PO Q6H PRN Pain (Scale 05/03/23 10/17/24 History tablet,extended release Score 1-3) amlodipine 10 mg tablet 10 mg PO DAILY 05/03/23 10/17/24 History apixaban 2.5 mg tablet (Eliquis) 2.5 mg PO BID 05/03/23 10/17/24 History bisacodyl 5 mg tablet 10 mg PO DAILY 05/03/23 10/17/24 History clonidine HCl 0.1 mg tablet 0.1 mg PO Q12H 05/03/23 10/18/24 History duloxetine 30 mg capsule,delayed 20 mg PO DAILY 05/03/23 10/17/24 History release famotidine 20 mg tablet 20 mg PO DAILY 05/03/23 10/17/24 History hydralazine 50 mg tablet 50 mg PO TID 05/03/23 10/17/24 History insulin glargine 100 unit/mL (3 35 unit subcut DAILY 05/03/23 10/17/24 History mL) subcutaneous pen (Lantus Solostar U-100 Insulin) insulin lispro 100 unit/mL 15 unit subcut TID 05/03/23 10/17/24 History subcutaneous pen (Humalog KwikPen (U-100) Insulin) lactulose 10 gram/15 mL oral 15 ml PO BID PRN Constipation 05/03/23 10/17/24 History solution lanolin alcohols-mineral 1 applic topical BID PRN dry skin 05/03/23 10/17/24 History oil-w.petrolatum-ceresin topical cream (Eucerin topical cream) levetiracetam 1,000 mg tablet 1,000 mg PO BID 05/03/23 10/17/24 History magnesium oxide 400 mg PO DAILY 05/03/23 10/17/24 History nystatin 100,000 unit/gram topical 1 applic topical BID PRN groin rash 05/03/23 10/17/24 History powder oxcarbazepine 300 mg tablet 300 mg PO Q12H 05/03/23 10/18/24 History polyethylene glycol 3350 17 gram 17 g PO DAILY 05/03/23 10/17/24 History oral powder packet (Miralax) potassium chloride 20 mEq 10 meq PO DAILY 05/03/23 10/17/24 History tablet,extended release(part/cryst) rizatriptan 10 mg tablet 10 mg PO PRN PRN Migraine Headache 05/03/23 10/17/24 History vitamin B complex (B 1 tablet PO DAILY 05/03/23 10/17/24 History Complex-Vitamin B12 tablet) baclofen 5 mg tablet 5 mg PO TID 10/17/24 10/17/24 History bumetanide 1 mg tablet 1 mg PO DAILY 10/17/24 10/17/24 History calcium carbonate 500 mg PO DAILY 10/17/24 10/17/24 History dexamethasone 4 mg tablet 4 mg PO DAILY 10/17/24 10/17/24 History gabapentin 300 mg capsule 300 mg PO TID 10/17/24 10/17/24 History levetiracetam 500 mg tablet 500 mg PO BID 10/17/24 10/17/24 History menthol 0.44 %-zinc oxide 20.6 % 1 applic topical BID redness and 10/17/24 10/17/24 History topical ointment (CalProtect) excoriation metformin 500 mg tablet 500 mg PO Q12H 10/17/24 10/18/24 History metoprolol tartrate 25 mg tablet 25 mg PO BID 10/17/24 10/17/24 History ondansetron 8 mg disintegrating 8 mg PO Q8H PRN nausea and vomiting 10/17/24 10/17/24 History tablet prochlorperazine maleate 10 mg 10 mg PO Q6H PRN nausea and 10/17/24 10/17/24 History tablet vomiting simvastatin 20 mg tablet 20 mg PO DAILY 10/17/24 10/17/24 History Allergies Allergy/AdvReac Type Severity Reaction Status Date / Time No Known Allergies Allergy Verified 10/17/24 14:02 Vital Signs Vital Signs - 24 hr 10/18/24 20:00 10/18/24 22:00 10/19/24 00:00 Temperature 36.4 C Pulse Rate 87 92 91 Respiratory Rate 18 Blood Pressure 181/89 H Pulse Oximetry 97 Oxygen Delivery 10/19/24 04:00 10/19/24 06:00 10/19/24 07:50 Temperature 36.3 C L Pulse Rate 69 94 94 Respiratory Rate 18 18 Blood Pressure 141/75 H Pulse Oximetry 96 96 Oxygen Delivery Room Air 10/19/24 12:00 10/19/24 14:00 10/19/24 16:00 Temperature 37.3 C Pulse Rate 80 82 84 Respiratory Rate 18 Blood Pressure 116/55 L Pulse Oximetry 99 Oxygen Delivery Exam Narrative: General: Comfortable at bedside, aphasia and unable to communicate completely. HEENT: EOMI, bilateral sclera anicteric, no conjunctival injection. Neck supple without JVD, lymphadenopathy, or bruit. Respiratory: clear to auscultation bilaterally. Cardiovascular: Regular rate and rhythm, normal S1-S2 upon ascultation. No murmurs, rubs, or clicks. Abdomen: Soft, round, no pulsatile masses, nondistended and nontender. Extremities: No cyanosis, clubbing, . Pulses are palpable 2/2. 2+ pitting edema bilaterally Neuro: Alert and orientated x 4. expressive aphasia, flaccid right sided weakness Skin: Warm, dry, and intact, without rash, erythema, or lesion. Results Labs 10/19/24 04:55 10/19/24 04:55 Labs: Short CBC 10/19/24 Range/Units 04:55 WBC 4.9 (4.5-10.0) K/mm3 Hgb 9.5 L (14.0-18.0) g/dL Hct 31.6 L (42.0-52.0) % Plt Count 105 L (150-375) k/mm3 BMP 10/19/24 04:55 Sodium 141 Potassium 3.5 Chloride 104 Carbon Dioxide 29 BUN 26 H Creatinine 1.22 Glucose 108 Calcium 9.0 Liver Function 10/19/24 Range/Units 04:55 Total Bilirubin 0.3 (0.2-1.3) mg/dL AST 18 (17-59) U/L ALT 25 (6-50) U/L Alkaline Phosphatase 58 (38-126) U/L Albumin 3.8 (3.5-5.1) g/dL
[2024-10-19 21:26] LABS: Glucose Point of Care 177 mg/dl (65-105)
[2024-10-20] VITALS: PULSE 81
[2024-10-20 04:00] VITALS: PULSE 89
[2024-10-20 05:38] LABS: Eosinophils Percent Auto 0.8 % (0-4.4); Hemoglobin 9.8 g/dL (14.0-18.0); Immature Granulocyte Absolute 0.04 K/mm3 (0.00-0.031); Immature Granulocyte Percent A 0.8 % (0-0.5); Lymphocytes Absolute Auto 0.71 K/mm3 (0.9-3.2); Mean Corpuscular HGB Conc 30.6 g/dl (32-36); Mean Corpuscular Volume 94.7 fl (80-100); Mean Platelet Volume 9.7 fl (7.4-10.4); Monocytes Absolute Auto 0.7 K/mm3 (0.1-0.6); Monocytes Percent Auto 14.6 % (2.6-8.5); Neutrophils Absolute Auto 3.3 K/mm3 (1.3-6.7); Neutrophils Percent Auto 68.8 % (45.5-73.1); Platelet Count Result 82 k/mm3 (150-375); Red Blood Count 3.38 M/mm3 (4.6-6.20); Red Cell Distribution Width 18.3 % (11.5-14.5); White Blood Count 4.7 K/mm3 (4.5-10.0)
[2024-10-20 05:44] LABS: Alanine Aminotransferase 23 U/L (6-50); Albumin Level 3.7 g/dL (3.5-5.1); Alkaline Phosphatase 58 U/L (38-126); Anion Gap 6 mmol/L (4-12); Aspartate Amino Transferase 20 U/L (17-59); Bilirubin,Total 0.4 mg/dL (0.2-1.3); Blood Urea Nitrogen 24 mg/dL (9-20); Carbon Dioxide 31 mmol/L (22-30); Chloride 101 mmol/L (98-107); Estimated CRCL calculation 72 ml/min; Estimated Glomerular Filt Rate 56; Glucose 110 mg/dL (65-110); Magnesium 2.1 mg/dL (1.6-2.3); Potassium 3.6 mmol/L (3.4-5.0); Sodium 138 mmol/L (137-145)
[2024-10-20 05:53] VITALS: BP 149/68; PULSE 87; RESP 18; TEMP 36.8; O2SAT 96
[2024-10-20] MEDS: CALCIUM CARBONATE (TUMS) 500 MG (200 MG ELEMENTAL) 400 MG BY MOUTH (08:30)
[2024-10-20] MEDS: levETIRAcetam 500 MG TABLET 1500 MG PO (08:31)
[2024-10-20] MEDS: BISACODYL 5 MG TABLET EC 10 MG PO (08:31)
[2024-10-20] MEDS: dexAMETHasone 4 MG TABLET PO (08:31)
[2024-10-20] MEDS: ATORVASTATIN 40 MG TABLET PO (08:31)
[2024-10-20] MEDS: FAMOTIDINE 20 MG TABLET PO (08:31)
[2024-10-20] MEDS: ASPIRIN 81 MG ENTERIC TABLET PO (08:32)
[2024-10-20] MEDS: MAGNESIUM OXIDE 400 MG TABLET PO (08:32)
[2024-10-20] MEDS: BACLOFEN 5 MG TABLET PO ×2 (08:32→13:10)
[2024-10-20] MEDS: DULoxetine HCL 20 MG CAPSULE.DR PO (08:32)
[2024-10-20] MEDS: APIXABAN 2.5 MG TABLET PO (08:32)
[2024-10-20] MEDS: BUMETANIDE 1 MG TABLET PO (08:32)
[2024-10-20] MEDS: OXcarbazepine 300 MG TABLET PO (08:32)
[2024-10-20] MEDS: VITAMIN B COMPLEX CAPSULE 1 CAP PO (08:33)
[2024-10-20] MEDS: polyethylene glycoL 3350 17 GM POWD.PACK PO (08:33)
[2024-10-20] MEDS: INSULIN GLARGINE (*BKC) 100 UNITS/ML 35 UNITS SUB-Q (08:44)
[2024-10-20] MEDS: INSULIN ASPART (*BKC) 100 UNITS/ML 15 UNITS SUB-Q ×2 (08:45→13:11)
[2024-10-20 08:48] LABS: Glucose Point of Care 114 mg/dl (65-105)
--- NOTE | 2024-10-20 10:12 | P.PNIM_ITS ---
Progress Note: A&P Assessment and Plan (1) Stroke-like symptoms: Code(s): R29.90 - Unspecified symptoms and signs involving the nervous system Status: Acute Assessment and Plan: Worsening facial droop per Neurology consulted Frequent neuro checks Restart home Eliquis and statin Permissive hypertension (2) Hypertension: Code(s): I10 - Essential (primary) hypertension Status: Acute Assessment and Plan: Permissive hypertension (3) Type II diabetes mellitus: Code(s): E11.9 - Type 2 diabetes mellitus without complications Status: Acute Assessment and Plan: Diabetic diet Accu-Cheks a.c. HS SSI Lantus and basal insulin (4) GERD (gastroesophageal reflux disease): Code(s): K21.9 - Gastro-esophageal reflux disease without esophagitis Status: Acute Assessment and Plan: Restart Pepcid (5) Hemiplegia: Code(s): G81.90 - Hemiplegia, unspecified affecting unspecified side Status: Acute Assessment and Plan: Right-sided flaccid baseline PT OT eval and treat (6) Constipation: Code(s): K59.00 - Constipation, unspecified Status: Acute Assessment and Plan: Restart home bowel protocol Plan ACute stroke Presented with worsening Facial droop MRI showed acute stroke patient has prior strokes with right sided flaccid paralysis and expressive aphasia with right sided facial droop CT head no acute changes ECHO. EF 60-65%, A1c , LDL 48 Patient tolerating diet which is baseline Aspirin, Lipitor PT/OT/ST consulted Neurology following Focal seizures continue Oxcarbazepine and Keppra EEG ordered per Neurology Neurology following Possible recurrent Glioblastoma Patient has a history of Glioblastoma on Dexamethasone MRI brain showed possible recurrent glioblastoma per neurology Oncology consulted monitor Hypertension on Permissive hypertension DM2 SSI with accucheks adjust with clinical course Prior stroke with right sided paralysis and expressive aphasia continue above care Constipation continue home bowel protocol DUNG continue CPAP On Eliquis investigate indication DVT prophylaxis on Eliquis Subjective Date/time seen: 10/20/24 10:12 Review of Systems Review of Systems: 12 systems were reviewed and are negativ e except for as per HPI. Exam Narrative: General: Comfortable at bedside HEENT: normocephalic, atraumatic. Mucous membranes moist. EOMI, PERRLA, bilateral sclera anicteric, no conjunctival injection. Neck supple without JVD, lymphadenopathy, or bruit. Respiratory: clear to auscultation bilaterally. No rales/rhonic/wheezes. Cardiovascular: Regular rate and rhythm, normal S1-S2 upon ascultation. No murmurs, rubs, or clicks. PMI is nondisplaced, capillary refill less than 3 second. Abdomen: Soft, round, no pulsatile masses, nondistended and nontender. No rebound, no guarding. No CVA tenderness, no hepatosplenomegaly. Bowel sounds present to all four quadrants. No high pitch or tinkling sounds, resonant to percussion. Extremities: No cyanosis, clubbing, . Pulses are palpable 2/2. Right-sided flaccid with contracted hand and foot drop, left leg strong, +4 pedal edema Neuro: Alert and orientated x 4. PERRLA. expressive aphasia, flaccid right sided weakness Skin: Warm, dry, and intact, without rash, erythema, or lesion. Objective Data Vital Signs Vital Signs: Vital Signs - 24 hr 10/19/24 12:00 10/19/24 14:00 10/19/24 16:00 Temperature 99.2 F Pulse Rate 80 82 84 Respiratory Rate 18 Blood Pressure 116/55 L Pulse Oximetry 99 Oxygen Delivery 10/19/24 20:00 10/19/24 20:00 10/19/24 21:38 Temperature 98.1 F Pulse Rate 83 85 Respiratory Rate 18 Blood Pressure 154/61 H Pulse Oximetry 95 Oxygen Delivery Room Air 10/20/24 00:00 10/20/24 04:00 10/20/24 05:53 Temperature 98.2 F Pulse Rate 81 89 87 Respiratory Rate 18 Blood Pressure 149/68 H Pulse Oximetry 96 Oxygen Delivery Intake/Output Intake/Output: Intake & Output 10/17/24 10/18/24 10/19/24 10/20/24 23:59 23:59 23:59 23:59 Intake Total 1090 1340 Output Total 2200 1999 556 Balance -1110 -660 -800 Meds/Results Medications: Active Medications Generic Name Dose Route Start Last Admin Trade Name Freq PRN Reason Stop Dose Admin Acetaminophen 650 mg 10/17/24 19:08 Acetaminophen 325 Mg Tablet PO Q4H PRN Mild Pain (1-3) or Fever Apixaban 2.5 mg 10/18/24 09:00 10/20/24 08:32 Apixaban 2.5 Mg Tablet PO 2.5 mg Q12HR JAMILA Administration Aspirin 81 mg 10/19/24 09:00 10/20/24 08:32 Aspirin 81 Mg Enteric Tablet PO 81 mg QAM JAMILA Administration Atorvastatin Calcium 40 mg 10/19/24 09:00 10/20/24 08:31 Atorvastatin 40 Mg Tablet PO 40 mg DAILY JAMILA Administration Baclofen 5 mg 10/17/24 23:10 10/20/24 08:32 Baclofen 5 Mg Tablet PO 5 mg TID JAMILA Administration Bisacodyl 10 mg 10/18/24 09:00 10/20/24 08:31 Bisacodyl 5 Mg Tablet Ec PO 10 mg DAILY JAMILA Administration Bumetanide 1 mg 10/18/24 09:00 10/20/24 08:32 Bumetanide 1 Mg Tablet PO 1 mg DAILY JAMILA Administration Calcium Carbonate 400 mg 10/18/24 09:00 10/20/24 08:30 Calcium Carbonate (Tums) 500 Mg (200 Mg Elemental) BY MOUTH 400 mg DAILY JAMILA Administration Dexamethasone 4 mg 10/18/24 09:00 10/20/24 08:31 Dexamethasone 4 Mg Tablet PO 4 mg DAILY JAMILA Administration Dextrose 12.5 gm 10/17/24 19:08 Dextrose 50% 25 Gm/50 Ml Syringe IV PUSH PRN PRN Hypoglycemia Protocol Duloxetine HCl 20 mg 10/18/24 09:00 10/20/24 08:32 Duloxetine Hcl 20 Mg Capsule.Dr PO 20 mg DAILY JAMILA Administration Famotidine 20 mg 10/18/24 09:00 10/20/24 08:31 Famotidine 20 Mg Tablet PO 20 mg DAILY JAMILA Administration Glucagon 1 mg 10/17/24 19:08 Glucagon For Inj 1 Mg Vial IM PRN PRN Hypoglycemia Protocol Glucose 15 gm 10/17/24 19:08 Glucose Oral Gel 15 Gm Of Glucse In 37.5 Gm Tube PO PRN PRN Hypoglycemia Protocol Dextrose 1,000 mls @ 100 mls/hr 10/17/24 19:08 Dextrose 5% 1,000 Ml IVPB PRN PRN Hypoglycemia Protocol Insulin Aspart 15 units 10/18/24 09:00 10/20/24 08:45 Insulin Aspart (*Bkc) 100 Units/Ml SUB-Q 15 units TID JAMILA Administration Insulin Aspart 2 - 5 units 10/18/24 08:00 10/20/24 08:53 Insulin Aspart (*Bkc) 100 Units/Ml SUB-Q Not Given TIDWM JAMILA Protocol Insulin Glargine 35 units 10/18/24 09:00 10/20/24 08:44 Insulin Glargine (*Bkc) 100 Units/Ml SUB-Q 35 units DAILY JAMILA Administration Levetiracetam 1,500 mg 10/18/24 00:10 10/20/24 08:31 Levetiracetam 500 Mg Tablet PO 1,500 mg Q12HR JAMILA Administration Magnesium Oxide 400 mg 10/18/24 09:00 10/20/24 08:32 Magnesium Oxide 400 Mg Tablet PO 400 mg DAILY JAMILA Administration Ondansetron HCl 4 mg 10/17/24 19:08 Ondansetron Inj 4 Mg/2 Ml Vial IV PUSH Q4H PRN Nausea Oxcarbazepine 300 mg 10/18/24 09:00 10/20/24 08:32 Oxcarbazepine 300 Mg Tablet PO 300 mg Q12HR JAMILA Administration Perflutren Lipid Microsphere 0 ml 10/18/24 08:39 Perflutren Lipid Microspheres 1.5 Ml Vial Diluted To 10 Ml Total Volume IV PUSH 10/21/24 08:39 ONCE PRN adequate visualization Protocol Perflutren Lipid Microsphere 0 ml 10/19/24 12:21 Perflutren Lipid Microspheres 1.5 Ml Vial Diluted To 10 Ml Total Volume IV PUSH 10/22/24 12:21 ONCE PRN adequate visualization Protocol Polyethylene Glycol 17 gm 10/18/24 09:00 10/20/24 08:33 Polyethylene Glycol 3350 17 Gm Powd.Pack PO 17 gm DAILY JAMILA Administration Vitamin B Complex 1 cap 10/18/24 09:00 10/20/24 08:33 Vitamin B Complex Capsule PO 1 cap DAILY JAMILA Administration Radiology Results: ITS Impressions Chest X-Ray 10/17/24 14:10 IMPRESSION: No acute cardiopulmonary pathology. Head CT 10/17/24 15:25 IMPRESSION: No acute intracranial findings. No change from previous examination. Head/Neck CTA 10/17/24 15:44 IMPRESSION: 1. Normal CTA head and neck. Percent stenosis per NASCET criteria is 0%. 2. Small caliber of the right vertebral artery. Brain MRI 10/19/24 10:08 IMPRESSION: 1. Small region of restricted diffusion along the posterior left caudate nucleus consistent with acute infarct at the periphery of a large region of encephalomalacia involving the left parietal, temporal and posterior frontal lobes and also involving portions of the left thalamus and insula which could represent either sequela of old infarct, prior surgery rather treatment for reported glioblastoma. 2. Diffuse serpiginous pattern of enhancement along the margins of the region of encephalomalacia which raises concern for residual disease although differential would include sequela of prior infarct or surgery. Evaluation is limited in the absence of prior postcontrast imaging to assess for evolution which would favor malignancy. Labs Labs: Laboratory Results - last 24 hr 10/19/24 10/19/24 10/19/24 11:37 16:34 20:29 WBC RBC Hgb Hct MCV MCH MCHC RDW Plt Count MPV Immature Gran % (Auto) Neut % (Auto) Lymph % (Auto) [place] % (Auto) Eos % (Auto) Baso % (Auto) Lymph # (Auto) [place] # (Auto) Eos # (Auto) Baso # (Auto) Abs Immat Gran (auto) Absolute Neuts (auto) Absolute Nucleated RBC Nucleated RBC % % Immature Plt Fraction Sodium Potassium Chloride Carbon Dioxide Anion Gap BUN Creatinine Estim Creat Clear Calc Estimated GFR Glucose POC Capillary Glucose 142 H 126 H 177 H Calcium Magnesium Total Bilirubin AST ALT Alkaline Phosphatase Total Protein Albumin 10/20/24 10/20/24 04:40 08:34 WBC 4.7 RBC 3.38 L Hgb 9.8 L Hct 32.0 L MCV 94.7 MCH 29.0 MCHC 30.6 L RDW 18.3 H Plt Count 82 L MPV 9.7 Immature Gran % (Auto) 0.8 H Neut % (Auto) 68.8 Lymph % (Auto) 15.0 L [place] % (Auto) 14.6 H Eos % (Auto) 0.8 Baso % (Auto) 0.0 L Lymph # (Auto) 0.71 L [place] # (Auto) 0.7 H Eos # (Auto) 0.0 Baso # (Auto) 0.0 Abs Immat Gran (auto) 0.04 H Absolute Neuts (auto) 3.3 Absolute Nucleated RBC 0.000 Nucleated RBC % 0.0 % Immature Plt Fraction 1.0 Sodium 138 Potassium 3.6 Chloride 101 Carbon Dioxide 31 H Anion Gap 6 BUN 24 H Creatinine 1.28 Estim Creat Clear Calc 72 Estimated GFR 56 L Glucose 110 POC Capillary Glucose 114 H Calcium 9.0 Magnesium 2.1 Total Bilirubin 0.4 AST 20 ALT 23 Alkaline Phosphatase 58 Total Protein 7.0 Albumin 3.7 Quality VTE Prophylaxis VTE prophylaxis: mechanical ordered and pharmacologic ordered
[2024-10-20 11:48] LABS: Glucose Point of Care 229 mg/dl (65-105)
[2024-10-20] MEDS: INSULIN ASPART (*BKC) 100 UNITS/ML SUB-Q (13:10)
[2024-10-20 14:00] VITALS: PULSE 94; RESP 18; TEMP 37.4; O2SAT 97
--- NOTE | 2024-10-20 14:04 | P.DS_ITS ---
DS: Admitting Diagnosis Discharge Date 10/20/2024 Admitting Diagnosis CVA DS: Discharge Diagnosis Discharge Diagnosis (1) Stroke-like symptoms: Code(s): R29.90 - Unspecified symptoms and signs involving the nervous system Status: Acute Assessment and Plan: Worsening facial droop per Neurology consulted Frequent neuro checks Restart home Eliquis and statin Permissive hypertension (2) Hypertension: Code(s): I10 - Essential (primary) hypertension Status: Acute Assessment and Plan: Permissive hypertension (3) Type II diabetes mellitus: Code(s): E11.9 - Type 2 diabetes mellitus without complications Status: Acute Assessment and Plan: Diabetic diet Accu-Cheks a.c. HS SSI Lantus and basal insulin (4) GERD (gastroesophageal reflux disease): Code(s): K21.9 - Gastro-esophageal reflux disease without esophagitis Status: Acute Assessment and Plan: Restart Pepcid (5) Hemiplegia: Code(s): G81.90 - Hemiplegia, unspecified affecting unspecified side Status: Acute Assessment and Plan: Right-sided flaccid baseline PT OT eval and treat (6) Constipation: Code(s): K59.00 - Constipation, unspecified Status: Acute Assessment and Plan: Restart home bowel protocol Plan ACute stroke Presented with worsening Facial droop MRI showed acute stroke patient has prior strokes with right sided flaccid paralysis and expressive aphasia with right sided facial droop CT head no acute changes ECHO. EF 60-65%, A1c , LDL 48 Patient tolerating diet which is baseline Aspirin, Lipitor PT/OT/ST consulted Neurology following Focal seizures continue Oxcarbazepine and Keppra EEG ordered per Neurology Neurology following Possible recurrent Glioblastoma Patient has a history of Glioblastoma on Dexamethasone MRI brain showed possible recurrent glioblastoma per neurology Oncology consulted monitor Hypertension on Permissive hypertension DM2 SSI with accucheks adjust with clinical course Prior stroke with right sided paralysis and expressive aphasia continue above care Constipation continue home bowel protocol DUNG continue CPAP On Eliquis investigate indication DVT prophylaxis on Eliquis DS: Summary Hospital Course Hospital Course: 64-year-old male past medical history of glioblastoma status post resection right-sided flaccid, DUNG, GERD, hypertension hyperlipidemia and diabetes presents the hospital with increasing facial droop baseline. Patient is aphasic and can say yes, no, and a few other simple words, which is baseline for him. Patient states that he has no complaints. He agrees that his complains about him having increased facial droop. He denies increased weakness to his left side. Right-sided at baseline Patient is anemic at 9.3, BUN 32, creatinine of 1.47. Head CT shows no acute findings. CTA head and neck are normal. I assumed care on 10/20/2024. Reviewed brain MRI:1. Small region of restricted diffusion along the posterior left caudate nucleus consistent with acute infarct at the periphery of a large region of encephalomalacia involving the left parietal, temporal and posterior frontal lobes and also involving portions of the left thalamus and insula which could represent either sequela of old infarct, prior surgery rather treatment for reported glioblastoma. 2. Diffuse serpiginous pattern of enhancement along the margins of the region of encephalomalacia which raises concern for residual disease although differential would include sequela of prior infarct or surgery. Evaluation is limited in the absence of prior postcontrast imaging to assess for evolution which would favor malignancy. Reviewed hematology/ oncologist: obtained a full medical history from patient's daughter Ms. Nae Razo as patient has aphasia. Per patient's daughter patient was diagnosed with glioblastoma of the left brain in July of 2018. He was seen by Neuro-Oncology and Neurosurgery team at [facility] in [place] and underwent resection in July 2018. Patient has severe deficit after the resection surgery with right-sided paralysis and aphasia. Per daughter patient then underwent radiation postsurgery in a clinical trial. He then underwent Optune brain treatment also in a clinical trial. He then has been maintained on steroids until May 2024 when an MRI he was noted to have progression. He was started on chemotherapy which daughter is not sure but by the dosing it seems like he is on temozolomide orally for 5 days in a 4 week cycle. He has been on this regimen since July 2024. Patient sees Dr. Travon Stevens, a neuro oncologist at [facility] on a monthly basis with the labs. His last brain MRI was done 08/18/2024 in [place]. There were some concerns of progression in the tumor bed however Dr. Stevens wanted to give it a few more months with the temozolomide treatment. Patient's next appointment with Dr. Stevens is on 10/22/2024. Our hematology/oncologist believe patient needs to keep his Neuro-Oncology appointment on 10/22/2024 at [facility] with Dr. Stevens. Patient should be discharged and brain MRI CD images should be sent with him for Dr. Stevens to evaluate the recent Brain MRI with previous MRIs. We do not want patient to miss his appointment with his neuro oncologist which is very critical at this time. Reviewed neurologist notes:MRI of the brain done today raises possibility of a new additional stroke in the vicinity of the old stroke on the left side on the diffusion scanning sequence although the CT angiogram does not show any abnormal findings. CT scan of the brain also did not show any significant abnormality. LDL is 48 and the patient is on atorvastatin 40 mg a day which should be continued. I will go ahead and order an echocardiogram. With regard to another possibility of malignancy raised by the radiologist I would suggest an opinion from the oncology services to see if they would like to explore this any further she has based upon the Shadow alone it will be difficult to decipher. Glioblastoma certainly is a tumor that is known to recur and hence certainly I would suggest to pursue this further. In the meanwhile if the patient has any further seizure-like activity I shall be glad to assist. Patient will be discharged today with images of brain MRI and advised to follow- up with . Our membership administrator/oncologist personally called me and emphasized on the importance of following up with . Agreed to the plan and patient will be discharged and advised to follow-up with Status at Discharge Cognitive/behavioral status at discharge: Stable Time Spent with Patient Time attestation: Total time spent providing and/or coordinating discharge services: 45 minute Exam Narrative: General: Comfortable at bedside HEENT: normocephalic, atraumatic. Mucous membranes moist. EOMI, PERRLA, bilateral sclera anicteric, no conjunctival injection. Neck supple without JVD, lymphadenopathy, or bruit. Respiratory: clear to auscultation bilaterally. No rales/rhonic/wheezes. Cardiovascular: Regular rate and rhythm, normal S1-S2 upon ascultation. No murmurs, rubs, or clicks. PMI is nondisplaced, capillary refill less than 3 second. Abdomen: Soft, round, no pulsatile masses, nondistended and nontender. No rebound, no guarding. No CVA tenderness, no hepatosplenomegaly. Bowel sounds present to all four quadrants. No high pitch or tinkling sounds, resonant to percussion. Extremities: No cyanosis, clubbing, . Pulses are palpable 2/2. Right-sided flaccid with contracted hand and foot drop, left leg strong, +4 pedal edema Neuro: Alert and orientated x 4. PERRLA. expressive aphasia, flaccid right sided weakness Skin: Warm, dry, and intact, without rash, erythema, or lesion. DS: Data Data Completed and Pending Labs on day of discharge: Labs from last 24 hours 10/20/24 10/20/24 10/20/24 11:33 08:34 04:40 WBC 4.7 RBC 3.38 L Hgb 9.8 L Hct 32.0 L MCV 94.7 MCH 29.0 MCHC 30.6 L RDW 18.3 H Plt Count 82 L MPV 9.7 Immature Gran % (Auto) 0.8 H Neut % (Auto) 68.8 Lymph % (Auto) 15.0 L Blanco % (Auto) 14.6 H Eos % (Auto) 0.8 Baso % (Auto) 0.0 L Lymph # (Auto) 0.71 L Blanco # (Auto) 0.7 H Eos # (Auto) 0.0 Baso # (Auto) 0.0 Abs Immat Gran (auto) 0.04 H Absolute Neuts (auto) 3.3 Absolute Nucleated RBC 0.000 Nucleated RBC % 0.0 % Immature Plt Fraction 1.0 Sodium 138 Potassium 3.6 Chloride 101 Carbon Dioxide 31 H Anion Gap 6 BUN 24 H Creatinine 1.28 Estim Creat Clear Calc 72 Estimated GFR 56 L Glucose 110 POC Capillary Glucose 229 H 114 H Calcium 9.0 Magnesium 2.1 Total Bilirubin 0.4 AST 20 ALT 23 Alkaline Phosphatase 58 Total Protein 7.0 Albumin 3.7 10/19/24 10/19/24 20:29 16:34 WBC RBC Hgb Hct MCV MCH MCHC RDW Plt Count MPV Immature Gran % (Auto) Neut % (Auto) Lymph % (Auto) Blanco % (Auto) Eos % (Auto) Baso % (Auto) Lymph # (Auto) Blanco # (Auto) Eos # (Auto) Baso # (Auto) Abs Immat Gran (auto) Absolute Neuts (auto) Absolute Nucleated RBC Nucleated RBC % % Immature Plt Fraction Sodium Potassium Chloride Carbon Dioxide Anion Gap BUN Creatinine Estim Creat Clear Calc Estimated GFR Glucose POC Capillary Glucose 177 H 126 H Calcium Magnesium Total Bilirubin AST ALT Alkaline Phosphatase Total Protein Albumin Discharge Plan Discharge Attending physician on discharge: Frederic Vaughan Consulting providers: Emiliano Norris; Paradise Bender Discharging Clinician: Frederic Vaughan Anticipated Discharge Date/Time: 10/20/24 14:09 Patient Disposition: Home Activity: as tolerated Diet: diabetic Discharge Instructions: Advised to follow-up with with CT images of brain MRI Patient Instructions: Antibiotic Form Patient Language: Yoruba Stand Alone Forms: General Discharge Information Follow-up/Referrals: Carlos Enrique Taylor MD [Primary Care Provider] - Emiliano Norris MD [Physician] - Paradise Bender MD [Physician] - Discharge Medications: New aspirin 81 mg Tablet,Delayed Release (Dr/Ec) 81 mg PO QAM Qty: 30 0RF atorvastatin 40 mg Tablet 40 mg PO DAILY Qty: 30 0RF Continued clonidine HCl 0.1 mg Tablet 0.1 mg PO Q12H polyethylene glycol 3350 [Miralax] 17 gram Powder In Packet 17 g PO DAILY rizatriptan 10 mg tablet 10 mg PO PRN PRN (Reason: Migraine Headache) Rx Instructions: may repeat dose q 2h max dose 30 mg in 24 hours oxcarbazepine 300 mg tablet 300 mg PO Q12H acetaminophen 650 mg Tablet Extended Release 650 mg PO Q6H PRN (Reason: Pain (Scale Score 1-3)) potassium chloride 20 mEq tablet,ER particles/crystals 10 meq PO DAILY famotidine 20 mg Tablet 20 mg PO DAILY amlodipine 10 mg tablet 10 mg PO DAILY hydralazine 50 mg tablet 50 mg PO TID nystatin 100,000 unit/gram powder 1 applic TOPICAL BID PRN (Reason: groin rash) Rx Instructions: apply to groin bisacodyl 5 mg Tablet 10 mg PO DAILY insulin lispro [Humalog KwikPen Insulin] 100 unit/mL insulin pen 15 unit SUBCUT TID duloxetine 30 mg capsule,delayed release(DR/EC) 20 mg PO DAILY levetiracetam 1,000 mg tablet 1,000 mg PO BID insulin glargine [Lantus Solostar U-100 Insulin] 100 unit/mL (3 mL) insulin pen 35 unit SUBCUT DAILY Eucerin Cream 1 applic TOPICAL BID PRN (Reason: dry skin) Rx Instructions: apply to lower legs Eliquis 2.5 mg tablet 2.5 mg PO BID magnesium oxide 400 mg magnesium Tablet 400 mg PO DAILY vitamin B complex [B Complex-Vitamin B12] Tablet 1 tablet PO DAILY lactulose 10 gram/15 mL solution 15 ml PO BID PRN (Reason: Constipation) baclofen 5 mg tablet 5 mg PO TID levetiracetam 500 mg tablet 500 mg PO BID Patient Comments: take with 1000 mg tablet bumetanide 1 mg tablet 1 mg PO DAILY metformin 500 mg tablet 500 mg PO Q12H simvastatin 20 mg tablet 20 mg PO DAILY prochlorperazine maleate 10 mg tablet 10 mg PO Q6H PRN (Reason: nausea and vomiting) ondansetron 8 mg tablet,disintegrating 8 mg PO Q8H PRN (Reason: nausea and vomiting) metoprolol tartrate 25 mg tablet 25 mg PO BID gabapentin 300 mg capsule 300 mg PO TID menthol-zinc oxide [CalProtect] 0.44-20.6 % ointment 1 applic topical BID Rx Instructions: apply to gluteal folds calcium carbonate 500 mg calcium (1,250 mg) tablet,chewable 500 mg PO DAILY dexamethasone 4 mg tablet 4 mg PO DAILY Date of admission: 10/18/24 12:21 Primary Care Provider: Carlos Enrique Taylor Admitting Provider: Hank Lynn Attending physician on admission: Hank Lynn Condition: Stable
== END 2024-10-20 16:20 | DRG 65 ==
LOC: ANHED 14:05 → ANH3MED 20:16
PROVIDERS: Emergency Medicine; Internal Medicine; Nurse Practitioner Gerontology; Admitting Provider Family Medicine; Emergency Provider Physician Assistant; PCP Family Medicine; Visit Provider General Practice
DX: I63.9 Cerebral infarction, unspecified (principal); C71.9 Malignant neoplasm of brain, unspecified; I69.351 Hemiplegia and hemiparesis following cerebral infarction affecting right dominant side; R29.818 Other symptoms and signs involving the nervous system; I69.320 Aphasia following cerebral infarction; I69.392 Facial weakness following cerebral infarction; K59.00 Constipation, unspecified; E11.9 Type 2 diabetes mellitus without complications; I10 Essential (primary) hypertension; R56.9 Unspecified convulsions; K21.9 Gastro-esophageal reflux disease without esophagitis; G47.33 Obstructive sleep apnea (adult) (pediatric); J44.9 Chronic obstructive pulmonary disease, unspecified; F41.1 Generalized anxiety disorder; E78.5 Hyperlipidemia, unspecified; I69.391 Dysphagia following cerebral infarction; Z79.01 Long term (current) use of anticoagulants; Z99.3 Dependence on wheelchair
CPT/HCPCS: 36415; 70450; 70496; 70498; 70553; 71045; 80048; 80053; 80061; 81003; 82948; 83735; 84484; 85025; 85055; 85610; 85730; 92507; 92523; 93005; 93306; 95816; 96374; 96375; 99285; A9270; A9579; G0378; J1815; J8540; Q9967